=== PATIENT | female | born 1970 | race Caucasian/White ===

== ENCOUNTER 2017-05-19 08:39 | Observation (INO) | payer OTHER ==
[2017-05-19] MEDS ORDERED: IPRATROPIUM BROM 0.5MG/2.5ML ONE (09:03)
[2017-05-19] MEDS ORDERED: LEVALBUTEROL 1.25 MG/3 ML NEB ONE (09:03)
[2017-05-19 09:18] LABS: Absolute Lymphocytes (CBC) 2.3 K/uL (0.7-4.9); Absolute Monocytes 0.5 K/uL (0.1-1.3); Absolute Neutrophil 2.9 K/uL (1.8-8.0); Basophils % 0.4 % (0-1.3); Hematocrit 42.9 % (36.0-45.0); Lymphocytes % 39.9 % (15.3-44.8); MCH 30.7 pg (27.0-35.0); MCV 94.2 fL (80-100); MPV 7.8 fL (7.6-11.3); Monocytes % 8.2 % (3.3-12.3); RBC Red Blood Cell Count 4.55 M/uL (3.86-4.86)
[2017-05-19] MEDS ORDERED: MAGNESIUM SULFATE 1 gm IVPB 1 GM/100 ML BAG IV ONE (09:20)
[2017-05-19 09:26] LABS: Potassium 3.7 mEq/L (3.6-5.0)
[2017-05-19] MEDS ORDERED: ACETAMINOPHEN 500 MG TAB ONE (09:29)
--- NOTE | 2017-05-19 10:50 | ER ---
Nurse's Notes [facility] Name: Roxanne Duran Age: 46 yrs Sex: Female : 1970 Arrival Date: 05/19/2017 Time: 08:43 Bed 5 Private MD: Diagnosis: Chronic obstructive pulmonary disease with (acute) exacerbation;Pneumonia, unspecified organism Presentation: 05/19 08:35 Presenting complaint: EMS states: Pt c/o dyspnea x 3 days, worse this morning. jl7 Transition of care: patient was not received from another setting of care. Onset of symptoms was May 17, 2017. Care prior to arrival: Medication(s) given: 125 mg Solu-medrol IVP IV initiated. 20 GA, in the left antecubital area, Oxygen administered. via a non-rebreather mask. 08:35 Method Of Arrival: EMS: [facility] 08:35 Acuity: SHYLA 2 jl7 Triage Assessment: 08:40 General: Appears distressed, uncomfortable, Behavior is cooperative. Pain: Complains of jl7 pain in headache Pain does not radiate. Pain currently is 8 out of 10 on a pain scale. Quality of pain is described as throbbing, Pain began 1 hour ago. Is continuous. EENT: No signs and/or symptoms were reported regarding the EENT system. Neuro: Level of Consciousness is awake, alert, obeys commands, Oriented to person, place, time, situation. Cardiovascular: Heart tones S1 S2 present Patient's skin is warm and dry. Respiratory: Reports shortness of breath at rest cough that is non-productive, Airway is patent Respiratory effort is even, labored, Respiratory pattern is symmetrical, tachypnea Breath sounds are diminished bilaterally. Onset: The symptoms/episode began/occurred 3 days ago, the patient has moderate shortness of breath. Derm: Skin is pink, warm \T\ dry. [facility] DIRECTOR: 08:53 LMP N/A - Hysterectomy jl7 Historical: - Allergies: 08:53 No Known Allergies; jl7 - Home Meds: 08:53 ProAir HFA inhalation [Active]; jl7 - PMHx: 08:53 COPD; Anxiety; jl7 - PSHx: 08:53 Hysterectomy; jl7 - Immunization history:: Adult Immunizations unknown. - Social history:: Smoking status: Patient/guardian denies using tobacco, but has a distant history of tobacco abuse. Screenin:16 Abuse screen: Denies threats or abuse. Denies injuries from another. Nutritional jl7 screening: No deficits noted. Tuberculosis screening: No symptoms or risk factors identified. Fall Risk IV access (20 points). Total Benton Fall Scale indicates No Risk (0-24 pts). Assessment: 08:59 General: See triage assessment. jl7 10:18 Reassessment: Patient and/or family updated on plan of care and expected duration. Pain jl7 level reassessed. Patient is alert, oriented x 3, equal unlabored respirations, skin warm/dry/pink. Patient states symptoms have improved. Cardiovascular: Rhythm is regular. 11:15 Reassessment: No changes from previously documented assessment. Patient and/or family jl7 updated on plan of care and expected duration. Pain level reassessed. Patient is alert, oriented x 3, equal unlabored respirations, skin warm/dry/pink. Vital Signs: 08:38 BP 122 / 73; Pulse 112; Resp 26 S; Temp 98.2(O); Pulse Ox 94% on R/A; Weight 77.11 kg jl7 (R); Height 5 ft. 4 in. (162.56 cm) (R); Pain 8/10; 08:40 Pulse Ox 96% on 4 lpm NC; jl7 08:57 Pulse Ox 100% on Nebulizer Mask; jl7 09:44 BP 93 / 52; Pulse 108; Resp 26; Pulse Ox 97% on 4 lpm NC; jb1 10:18 BP 101 / 55; Pulse 95; Resp 18 S; Pulse Ox 96% on 4 lpm NC; jl7 11:00 BP 104 / 55; Pulse 95; Resp 18 S; Pulse Ox 94% on 4 lpm NC; jl7 11:42 BP 100 / 60; Pulse 95; Resp 18 S; Pulse Ox 95% on 4 lpm NC; jl7 08:38 Body Mass Index 29.18 (77.11 kg, 162.56 cm) jl7 ED Course: 08:38 Arm band placed on right wrist. jl7 08:43 Patient arrived in ED. jl7 08:44 Daniela Tinoco FNP-C [facility] kb 08:44 Rickie Enamorado MD is Attending Physician. kb 08:51 Triage completed. jl7 09:16 Patient has correct armband on for positive identification. Bed in low position. Call jl7 light in reach. Side rails up X 1. Pulse ox on. NIBP on. Warm blanket given. 09:16 Initial lab(s) drawn, by me, sent to lab. Maintain EMS IV. Dressing intact. Good blood jl7 return noted. Site clean \T\ dry. Gauge \T\ site: 20 L AC. 09:36 Darrin Kirkland RN is Primary Nurse. jl7 09:43 Chest Single View XRAY In Process Unspecified. EDMS 10:49 Dc Douglas MD is Hospitalizing Provider. kb 11:05 First set of blood cultures drawn by me. jl7 11:25 Second set of blood cultures drawn by me. Inserted saline lock: 22 gauge in right hand, jl7 using aseptic technique. Blood collected. 12:10 No provider procedures requiring assistance completed. Patient admitted, IV remains in jl7 place. Administered Medications: 08:45 Drug: Xopenex (3) 1.25 mg Route: Inhalation; jl7 09:14 Follow up: Response: No adverse reaction jl7 08:45 Drug: AtroVENT Aerosol 0.5 mg Route: Inhalation; jl7 09:15 Follow up: Response: No adverse reaction jl7 09:05 Drug: Magnesium Sulfate 1 grams Route: IVPB; Infused Over: 1 hrs; Site: left jl7 antecubital; 10:18 Follow up: Response: No adverse reaction; IV Status: Completed infusion jl7 09:14 Drug: Tylenol 1000 mg Route: PO; jl7 10:17 Follow up: Response: No adverse reaction; Pain is decreased jl7 11:25 Drug: Rocephin - (cefTRIAXone) 1 grams Route: IVPB; Infused Over: 2 mins; Site: right jl7 hand; 11:27 Follow up: Response: No adverse reaction; IV Status: Completed infusion jl7 11:50 Drug: Zithromax 500 mg Route: IVPB; Infused Over: 1 hrs; Site: right hand; jl7 12:10 Follow up: IV Status: Infusion continued upon admission jl7 Outcome: 10:49 Decision to Hospitalize by Provider. kb 12:10 Admitted to Med/surg accompanied by tech, via wheelchair, room 231, with oxygen, with jl7 chart, Report called to Jovana 12:10 Condition: stable 12:10 Discharge instructions given to patient, Instructed on the need for admit, Demonstrated understanding of instructions. 12:36 Patient left the ED. jl7 Signatures: Dispatcher [employer] Weston Bui Kristin, DIABETES EDUCATION COORDINATOR-C DIABETES EDUCATION COORDINATOR-Darrin Beltran, RN RN jl7
--- NOTE | 2017-05-19 10:50 | EDPHYS ---
Physician Documentation [facility] Name: Roxanne Duran Age: 46 yrs Sex: Female : 1970 Arrival Date: 05/19/2017 Time: 08:43 Bed 5 Private MD: ED Physician Rickie Enamorado HPI: 05/19 08:46 This 46 yrs old Female presents to ER via Unassigned with complaints of kb Breathing Difficulty. 08:46 The patient has shortness of breath at rest, and the patient has a history of COPD. kb Onset: The symptoms/episode began/occurred 3 day(s) ago, and became worse yesterday. Duration: The symptoms are continuous. The patient's shortness of breath is aggravated by exertion, talking, is alleviated by nothing. Associated signs and symptoms: Pertinent positives: non-productive cough, Pertinent negatives: chest pain, productive cough, diaphoresis, dizziness, fever, hemoptysis, loss of consciousness, nausea, numbness in extremities, visual changes, vomiting. Severity of symptoms: At their worst the symptoms were moderate in the emergency department the symptoms are unchanged. The patient has not experienced similar symptoms in the past. The patient has not recently seen a physician. Dyspnea for 3 days, worse starting yesterday. Has been doing nebs and inhaler at home without relief. Reports she is supposed to wear oxygen at night and PRN, but hasn't been because it has been making her nose too dry. Solumedrol 125mg IV given in route by EMS. Pt states she stopped smoking 3 weeks ago. Uses e-cigarette occasionally. . 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 - Social history:: Smoking status: Patient/guardian denies using tobacco, but has a distant history of tobacco abuse. ROS: 08:46 Constitutional: Negative for fever, chills, and weight loss, ENT: Negative for injury, kb pain, and discharge, Neck: Negative for injury, pain, and swelling, Cardiovascular: Negative for chest pain, palpitations, and edema, Abdomen/GI: Negative for abdominal pain, nausea, vomiting, diarrhea, and constipation, Back: Negative for injury and pain, : Negative for injury, bleeding, discharge, and swelling, MS/Extremity: Negative for injury and deformity, Skin: Negative for injury, rash, and discoloration, Neuro: Negative for headache, weakness, numbness, tingling, and seizure. 08:46 Respiratory: Positive for cough, with no reported sputum, dyspnea on exertion, shortness of breath, Negative for pleurisy, wheezing. Exam: 08:46 Constitutional: This is a well developed, well nourished patient who is awake, alert, kb and in no acute distress. Head/Face: Normocephalic, atraumatic. ENT: Nares patent. No nasal discharge, no septal abnormalities noted. Tympanic membranes are normal and external auditory canals are clear. Oropharynx with no redness, swelling, or masses, exudates, or evidence of obstruction, uvula midline. Mucous membranes moist. Neck: Trachea midline, no thyromegaly or masses palpated, and no cervical lymphadenopathy. Supple, full range of motion without nuchal rigidity, or vertebral point tenderness. No Meningismus. Chest/axilla: Normal chest wall appearance and motion. Nontender with no deformity. No lesions are appreciated. Cardiovascular: Regular rate and rhythm with a normal S1 and S2. No gallops, murmurs, or rubs. Normal PMI, no JVD. No pulse deficits. Abdomen/GI: Soft, non-tender, with normal bowel sounds. No distension or tympany. No guarding or rebound. No evidence of tenderness throughout. Back: No spinal tenderness. No costovertebral tenderness. Full range of motion. Skin: Warm, dry with normal turgor. Normal color with no rashes, no lesions, and no evidence of cellulitis. MS/ Extremity: Pulses equal, no cyanosis. Neurovascular intact. Full, normal range of motion. Neuro: Awake and alert, GCS 15, oriented to person, place, time, and situation. Cranial nerves II-XII grossly intact. Motor strength 5/5 in all extremities. Sensory grossly intact. Cerebellar exam normal. Normal gait. 08:46 Respiratory: moderate respiratory distress is noted, Respirations: labored breathing, that is moderate, Breath sounds: decreased breath sounds, that are moderate, are located in both bases. 10:37 Respiratory: mild respiratory distress is noted, Respirations: labored breathing, that kb is mild, Breath sounds: decreased breath sounds, that are mild, are located in both bases. Vital Signs: 08:38 BP 122 / 73; Pulse 112; Resp 26 S; Temp 98.2(O); Pulse Ox 94% on R/A; Weight 77.11 kg jl7 (R); Height 5 ft. 4 in. (162.56 cm) (R); Pain 8/10; 08:40 Pulse Ox 96% on 4 lpm NC; jl7 08:57 Pulse Ox 100% on Nebulizer Mask; jl7 09:44 BP 93 / 52; Pulse 108; Resp 26; Pulse Ox 97% on 4 lpm NC; jb1 10:18 BP 101 / 55; Pulse 95; Resp 18 S; Pulse Ox 96% on 4 lpm NC; jl7 11:00 BP 104 / 55; Pulse 95; Resp 18 S; Pulse Ox 94% on 4 lpm NC; jl7 11:42 BP 100 / 60; Pulse 95; Resp 18 S; Pulse Ox 95% on 4 lpm NC; jl7 08:38 Body Mass Index 29.18 (77.11 kg, 162.56 cm) jl7 MDM: 08:44 Patient medically screened. kb 08:46 Data reviewed: vital signs, nurses notes. Data interpreted: Pulse oximetry: on room air kb is 94 %. Interpretation: normal. 10:45 Counseling: I had a detailed discussion with the patient and/or guardian regarding: the kb historical points, exam findings, and any diagnostic results supporting the discharge/admit diagnosis, lab results, radiology results, the need for further work-up and treatment in the hospital. Physician consultation: Dc Douglas MD was contacted at 10:49, regarding admission, to the medical/surgical unit. patient's condition, and will see patient in ED, shortly. ED course: Pt reports she is doing better until she takes a deep breath or talks. Gets into coughing fits and becomes short of breath again. States she thinks she needs to stay here. . 05/19 08:45 Order name: CBC with Diff; Complete Time: 09:26 kb 05/19 08:45 Order name: Basic Metabolic Panel; Complete Time: 09:26 kb 05/19 08:45 Order name: Chest Single View XRAY; Complete Time: 10:57 kb 05/19 10:58 Order name: Blood Culture Adult (2) kb 05/19 08:45 Order name: IV Start; Complete Time: 09:18 kb Administered Medications: 08:45 Drug: Xopenex (3) 1.25 mg Route: Inhalation; jl7 09:14 Follow up: Response: No adverse reaction jl7 08:45 Drug: AtroVENT Aerosol 0.5 mg Route: Inhalation; jl7 09:15 Follow up: Response: No adverse reaction jl7 09:05 Drug: Magnesium Sulfate 1 grams Route: IVPB; Infused Over: 1 hrs; Site: left jl7 antecubital; 10:18 Follow up: Response: No adverse reaction; IV Status: Completed infusion jl7 09:14 Drug: Tylenol 1000 mg Route: PO; jl7 10:17 Follow up: Response: No adverse reaction; Pain is decreased jl7 11:25 Drug: Rocephin - (cefTRIAXone) 1 grams Route: IVPB; Infused Over: 2 mins; Site: right jl7 hand; 11:27 Follow up: Response: No adverse reaction; IV Status: Completed infusion jl7 11:50 Drug: Zithromax 500 mg Route: IVPB; Infused Over: 1 hrs; Site: right hand; jl7 12:10 Follow up: IV Status: Infusion continued upon admission jl7 Disposition: 13:44 Co-signature as Attending Physician, Rickie Enamorado MD I agree with the assessment and kdr plan of care. Disposition: 05/19/17 10:49 Hospitalization ordered by Dc Douglas for Observation. Preliminary diagnosis are Chronic obstructive pulmonary disease with (acute) exacerbation, Pneumonia, unspecified organism. - Bed requested for Telemetry/MedSurg (observation). - Status is Observation. jl7 - Condition is Stable. - Problem is an acute exacerbation. - Symptoms are unchanged. UTI on Admission? No Signatures: Dispatcher [employer] EDDaniela Reyes, Rickie Duff MD MD kdr Leal, Jahala, RN RN jl7 Nuvia Marshall RN RN df Corrections: (The following items were deleted from the chart) 08:56 08:46 Dyspnea for 3 days, worse starting yesterday. Has been doing nebs and inhaler at home without relief. Reports she is supposed to wear oxygen at night and PRN, but hasn't been because it has been making her nose too dry. Solumedrol 125mg IV given in route by EMS.
--- NOTE | 2017-05-19 10:55 | RAD REPORT ---
EXAM DESCRIPTION: [place] Single View05/19/2017 9:43 am CLINICAL HISTORY: Chest pain COMPARISON: March 2017 FINDINGS: A mild left basilar lung opacity is seen. The lungs are hyperaerated The remainder of the lungs appear clear of acute infiltrate. The heart is normal size IMPRESSION: Mild left basilar lung opacity may represent pneumonia
[2017-05-19] MEDS ORDERED: ACETAMINOPHEN 500 MG TAB PO PRN (11:03)
[2017-05-19] MEDS ORDERED: AZITHROMYCIN 500 MG/250 ML BAG IV SCH (11:15)
[2017-05-19] MEDS ORDERED: CEFTRIAXONE/SWI 1gm 1 GM/10 ML SYR ONE (11:24)
[2017-05-19] MEDS: Levofloxacin 750mg IV 750 MG/150 ML BAG IV SCH (13:49)
[2017-05-19] MEDS: NA CHLORIDE 0.9% 1,000 ML IV SCH ×2 (13:49→21:23)
[2017-05-19 14:13] VITALS: BMI 27.6
[2017-05-19] MEDS: ALBUTEROL 2.5 MG/3 ML NEB SOL NEB PRN ×2 (14:15→22:45)
[2017-05-19] MEDS: IPRATROPIUM BROM 0.5MG/2.5ML NEB PRN ×2 (14:15→22:45)
[2017-05-19] MEDS: ENOXAPARIN 40 MG/0.4 ML SQ SCH (14:56)
[2017-05-19] MEDS: BENZONATATE 100 MG CAP PO PRN (15:34)
[2017-05-19] MEDS: METHYLPREDNISOLONE 40 MG INJ IV SCH (17:55)
[2017-05-19] MEDS: BUDESONIDE IN SCH (20:25)
[2017-05-19] MEDS: [UNRECOGNIZED DRUG - OTHER] IN SCH (20:25)
[2017-05-19] MEDS: FORMOTEROL FUMARATE IN SCH (20:25)
[2017-05-19] MEDS ORDERED: LORazepam 2 MG/ML VIAL IV ONE (21:06)
--- NOTE | 2017-05-19 21:50 | HP ---
Date of Admission: 05/19/2017 Code Status: Full. Chief Complaint: Shortness of breath. History Of Present Illness: The patient is a 46-year-old female with past medical history of COPD, o n home oxygen at night, who was in her usual state of health until 3 days prior to admission when the patient had sudden onset of shortness of breath, cough, and congestion. The patient states that she has been using her nebulizer treatments more than usual. Does report some subjective fevers. No ch ills. Also reports some pain with deep breath on her left side. She denies any ill contacts. The p atient denies any chest pain. Also, the patient's symptoms are constant, moderate, progressively wor sening. No alleviating factors or aggravating factors. The patient called EMS and was brought into the ER. Upon arrival, the patient was about 94% on room air. She was placed on supplemental oxygen. Her workup revealed normal white blood cell count. Chest x-ray showed left basilar lung opacity re presenting pneumonia. The patient was given IV antibiotics, nebulizer treatment, magnesium, and refe rred for admission. When the patient was seen in the ER, she was awake, alert, oriented x3, in some mild distress. Past Medical History: COPD, oxygen dependent. Past Surgical History: Hysterectomy. Allergies: NO KNOWN DRUG ALLERGIES. Medications: Reviewed. Social History: The patient smokes 1-2 cigarettes per day. Former heavy smoker. No alcohol use or illicit drug use. The patient is independent in her activities of daily living. Family History: Mother had lung cancer. Review of Systems: 11-point system reviewed, negative except as per HPI. Physical Examination: Vital Signs: Heart rate 108, blood pressure 93/52, respirations 26, O2 saturation 100% on 4 L via na chayito cannula. General: Awake, alert, oriented x3 in some mild respiratory distress. Ill-appearing, older than sta lenard age female. HEENT: Normocephalic, atraumatic. PERRLA. EOMI. Poor dentition. Oropharynx is clear. Conjunctiv a anicteric. Neck: Supple. No JVD. Trachea midline. CV: S1, S2. Sinus tachycardia. Peripheral pulses are present bilaterally. No murmurs. Respiratory: Diminished breath sounds bilaterally. Mild wheezing. The patient is tachypneic and us ing accessory muscles. Gastrointestinal: Abdomen is soft, nontender, nondistended. Positive bowel sounds. No guarding or rigidity. No palpable masses. Extremities: No clubbing, cyanosis, or edema. No calf tenderness. Neurologic: Cranial nerves 2 through 12 intact grossly. No focal neurological deficit. Strength is 5/5 in bilateral upper and lower extremities. Sensation intact to light touch. Speech is normal. Laboratory Data: Sodium 140, potassium 3.7, chloride 107, CO2 of 24. BUN 13, creatinine 0.96, gluco se 105, calcium 8.3. WBC 5.7, H and H 14 and 42.9, platelets 151. Neutrophils 51.5%. Diagnostic Data: Chest x-ray, personally reviewed, shows mild left basilar lung opacity, may represe nt pneumonia. Assessment And Plan: A 46-year-old female with; 1.Acute chronic obstructive pulmonary disease exacerbation. We will continue with DuoNeb treatments , IV steroids, and supplemental oxygen as needed. Goal O2 is between 80 and 91%. 2.Left basilar pneumonia, community acquired. We will continue with IV antibiotics. Follow up with blood cultures and obtain sputum cultures. 3.Gastrointestinal and deep venous thrombosis prophylaxis with PPI and Lovenox. 4.Nicotine dependence with cigarette smoking, uncomplicated. Counseled. Plan: Admit the patient to [facility]. PANCHO Voice ID: [id number]
[2017-05-20] MEDS: METHYLPREDNISOLONE 40 MG INJ IV SCH ×2 (00:51→09:01)
[2017-05-20 05:16] LABS: Absolute Lymphocytes (CBC) 0.5 K/uL (0.7-4.9); Absolute Monocytes 0.1 K/uL (0.1-1.3); Absolute Neutrophil 2.3 K/uL (1.8-8.0); Basophils % 0.2 % (0-1.3); Hematocrit 38.2 % (36.0-45.0); Lymphocytes % 16.8 % (15.3-44.8); MCH 31.5 pg (27.0-35.0); MCV 93.6 fL (80-100); MPV 8.1 fL (7.6-11.3); Monocytes % 3.1 % (3.3-12.3); RBC Red Blood Cell Count 4.09 M/uL (3.86-4.86)
[2017-05-20 05:27] LABS: Potassium 4.6 mEq/L (3.6-5.0)
[2017-05-20] MEDS: [UNRECOGNIZED DRUG - OTHER] IN SCH (09:00)
[2017-05-20] MEDS: BUDESONIDE IN SCH (09:00)
[2017-05-20] MEDS: NA CHLORIDE 0.9% 1,000 ML IV SCH (09:00)
[2017-05-20] MEDS: FORMOTEROL FUMARATE IN SCH (09:00)
[2017-05-20] MEDS: ENOXAPARIN 40 MG/0.4 ML SQ SCH (09:01)
[2017-05-20] MEDS: ALBUTEROL 2.5 MG/3 ML NEB SOL NEB PRN (09:05)
[2017-05-20] MEDS: IPRATROPIUM BROM 0.5MG/2.5ML NEB PRN (09:05)
[2017-05-20] MEDS: BENZONATATE 100 MG CAP PO PRN (10:09)
[2017-05-20] MEDS: Levofloxacin 750mg IV 750 MG/150 ML BAG IV SCH (11:48)
[2017-05-20 12:41] VITALS: O2SAT 95
[2017-05-20 13:20] VITALS: BP 104/57; TEMP 99
--- NOTE | 2017-05-20 16:39 | DS ---
Date of Discharge: 05/20/2017 Admitting Diagnoses: 1.Acute chronic obstructive pulmonary disease exacerbation. 2.Left basilar pneumonia, community acquired. 3.Nicotine dependence with cigarette smoking, uncomplicated. Discharge Diagnoses: 1.Acute chronic obstructive pulmonary disease exacerbation with chronic respiratory failure, improve d. 2.Left basilar pneumonia, improved. 3.Nicotine dependence with cigarette smoking, counseled. Hospital Course: The patient is a 46-year-old female, who was admitted to the hospital for shortness of breath. The patient was found to have left basilar pneumonia and COPD exacerbation. The patient was started on IV steroids, nebulizer treatments, and IV antibiotics. Cultures were obtained, which were negative to date. The patient was continued on supplemental oxygen. She does take 2 L at home . Cultures remained negative. She is doing significantly better. She is able to ambulate without s ignificant dyspnea and was feeling back to her baseline. The patient still has some dry cough, which was treated with Tessalon Perles. The patient was then discharged home in stable condition. Activity: No strenuous activity. Diet: Heart healthy. Medications: As per medication reconciliation. Followup: Follow up with primary care physician in 2-3 days. Return to ER for worsening condition. Physical Examination: General: Awake, alert, oriented, no acute distress. CV: S1, S2. No murmurs. Respiratory: Moving air well bilaterally. Some minimal expiratory wheezes. Gastrointestinal: Abdomen is soft, nontender, nondistended. Positive bowel sounds. Extremities: No clubbing, cyanosis, or edema. Neuro: Nonfocal. SA/MODL Voice ID: [id number] Report ID: [id number]
== END 2017-05-20 11:58 | disposition home or self-care (01) ==
LOC: ER 08:39 → ERHOLD 10:50 → 2ND 11:56
PROVIDERS: ADMIT Family Medicine; ATTEND Family Medicine
DX: J18.9 Pneumonia, unspecified organism; J44.0 Chronic obstructive pulmonary disease with (acute) lower respiratory infection; F17.210 Nicotine dependence, cigarettes, uncomplicated; J44.1 Chronic obstructive pulmonary disease with (acute) exacerbation; J96.10 Chronic respiratory failure, unspecified whether with hypoxia or hypercapnia
CPT/HCPCS: 36415; 71045; 80048; 85025; 87040; 87070; 87205; 94640; 99285; G0378; J0456; J0696; J1650; J2920; J3475; J7030

== ENCOUNTER 2018-10-09 09:22 | Emergency (ER) | payer OTHER ==
--- NOTE | 2018-10-09 10:23 | EDPHYS ---
Physician Documentation [facility] Name: Roxanne Duran Age: 48 yrs Sex: Female : 1970 Arrival Date: 10/09/2018 Time: 09:28 Bed 7 Private MD: ED Physician Hipolito Ty HPI: 10/09 10:17 This 48 yrs old Female presents to ER via Ambulatory with complaints of faye Shoulder Pain. 10:17 The patient or guardian complains of decreased range of motion, pain. right shoulder. faye Context: The problem was sustained at home, at an unknown site. Context: resulted from repetitive motion, The patient experiences decreased range of motion, The patient reports no obvious deformity. Onset: The symptoms/episode began/occurred. Modifying factors: the symptoms are alleviated by remaining still, The symptoms are aggravated by movement, rotation of arm. Associated signs and symptoms: The patient has no apparent associated signs or symptoms. Severity of symptoms: At their worst the symptoms were mild, moderate, in the emergency department the symptoms are unchanged. 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 - Social history:: Smoking status: Patient uses tobacco products, smokes one-half pack cigarettes per day. - Ebola Screening: : No symptoms or risks identified at this time. - Family history:: not pertinent. ROS: 10:17 Constitutional: Negative for fever, chills, and weight loss, Eyes: Negative for injury, faye pain, redness, and discharge, ENT: Negative for injury, pain, and discharge, Neck: Negative for injury, pain, and swelling, Cardiovascular: Negative for chest pain, palpitations, and edema, Respiratory: Negative for shortness of breath, cough, wheezing, and pleuritic chest pain, Abdomen/GI: Negative for abdominal pain, nausea, vomiting, diarrhea, and constipation, Back: Negative for injury and pain, : Negative for injury, bleeding, discharge, and swelling, Skin: Negative for injury, rash, and discoloration, Neuro: Negative for headache, weakness, numbness, tingling, and seizure, Psych: Negative for depression, anxiety, suicide ideation, homicidal ideation, and hallucinations, Allergy/Immunology: Negative for hives, rash, and allergies, Endocrine: Negative for neck swelling, polydipsia, polyuria, polyphagia, and marked weight changes, Hematologic/Lymphatic: Negative for swollen nodes, abnormal bleeding, and unusual bruising. 10:17 MS/extremity: Positive for decreased range of motion, pain, of the anterior aspect of right shoulder and posterior aspect of right shoulder. Exam: 10:17 Constitutional: This is a well developed, well nourished patient who is awake, alert, faye and in no acute distress. Head/Face: Normocephalic, atraumatic. Eyes: Pupils equal round and reactive to light, extra-ocular motions intact. Lids and lashes normal. Conjunctiva and sclera are non-icteric and not injected. Cornea within normal limits. Periorbital areas with no swelling, redness, or edema. ENT: Nares patent. No nasal discharge, no septal abnormalities noted. Tympanic membranes are normal and external auditory canals are clear. Oropharynx with no redness, swelling, or masses, exudates, or evidence of obstruction, uvula midline. Mucous membranes moist. Neck: Trachea midline, no thyromegaly or masses palpated, and no cervical lymphadenopathy. Supple, full range of motion without nuchal rigidity, or vertebral point tenderness. No Meningismus. Chest/axilla: Normal chest wall appearance and motion. Nontender with no deformity. No lesions are appreciated. Cardiovascular: Regular rate and rhythm with a normal S1 and S2. No gallops, murmurs, or rubs. Normal PMI, no JVD. No pulse deficits. Respiratory: Lungs have equal breath sounds bilaterally, clear to auscultation and percussion. No rales, rhonchi or wheezes noted. No increased work of breathing, no retractions or nasal flaring. Abdomen/GI: Soft, non-tender, with normal bowel sounds. No distension or tympany. No guarding or rebound. No evidence of tenderness throughout. Skin: Warm, dry with normal turgor. Normal color with no rashes, no lesions, and no evidence of cellulitis. Neuro: Awake and alert, GCS 15, oriented to person, place, time, and situation. Cranial nerves II-XII grossly intact. Motor strength 5/5 in all extremities. Sensory grossly intact. Cerebellar exam normal. Normal gait. Psych: Awake, alert, with orientation to person, place and time. Behavior, mood, and affect are within normal limits. 10:17 Musculoskeletal/extremity: Extremities: noted in the anterior aspect of right shoulder and posterior aspect of right shoulder: decreased ROM, pain. Vital Signs: 09:37 BP 96 / 60; Pulse 68; Resp 16; Temp 97.7; Pulse Ox 99% ; Weight 77.11 kg; Height 5 ft. hb 4 in. (162.56 cm); Pain 9/10; 10:38 BP 110 / 62; Pulse 66; Resp 16; Temp 97.7; Pulse Ox 99% on R/A; Pain 9/10; sg 09:37 Body Mass Index 29.18 (77.11 kg, 162.56 cm) hb MDM: 09:34 Patient medically screened. [facility] 10:20 Data reviewed: vital signs, nurses notes, radiologic studies, plain films. [facility] 10/09 09:34 Order name: Shoulder Right (2 View) XRAY [facility] 10/09 10:16 Order name: Sling; Complete Time: 10:24 [facility] Administered Medications: 10:25 Drug: Motrin 600 mg Route: PO; sg Disposition: 10/09/18 10:21 Discharged to Home. Impression: Pain in right shoulder, Adhesive capsulitis of right shoulder. - Condition is Stable. - Discharge Instructions: Joint Pain, Musculoskeletal Pain, Shoulder Pain, Shoulder Pain, [id number]. - Prescriptions for Tylenol- Codeine #3 300-30 mg Oral Tablet - take 2 tablets by ORAL route every 6 hours As needed; 26 tablet. Motrin IB 200 mg Oral Tablet - take 3 tablet by ORAL route every 8 hours As needed as needed with food; 30 tablet. - Medication Reconciliation Form, Thank You Letter, Antibiotic Education, Prescription Opioid Use form. - Follow up: Private Physician; When: 2 - 3 days; Reason: Recheck today's complaints, Continuance of care, Re-evaluation by your physician. Follow up: Genaro Pacheco MD; When: 2 - 3 days; Reason: Recheck today's complaints, Re-evaluation by your physician. - Problem is new. - Symptoms have improved. Signatures: Dispatcher [employer] EDMS David Borges RN RN Hipolito Iverson MD MD cha Baxter, Heather, RN RN Corrections: (The following items were deleted from the chart) 10:41 10:21 10/09/2018 10:21 Discharged to Home. Impression: Pain in right shoulder; Adhesive sg capsulitis of right shoulder. Condition is Stable. Forms are Medication Reconciliation Form, Thank You Letter, Antibiotic Education, Prescription Opioid Use. Follow up: Private Physician; When: 2 - 3 days; Reason: Recheck today's complaints, Continuance of care, Re-evaluation by your physician. Follow up: Genaro Pacheco; When: 2 - 3 days; Reason: Recheck today's complaints, Re-evaluation by your physician. Problem is new. Symptoms have improved. faye
--- NOTE | 2018-10-09 10:23 | ER ---
Nurse's Notes [facility] Name: Roxanne Duran Age: 48 yrs Sex: Female : 1970 Arrival Date: 10/09/2018 Time: 09:28 Bed 7 Private MD: Diagnosis: Pain in right shoulder;Adhesive capsulitis of right shoulder Presentation: 10/09 09:34 Presenting complaint: Right shoulder pain x 3 weeks. Transition of care: patient was hb not received from another setting of care. Onset of symptoms was September 2018. Risk Assessment: Do you want to hurt yourself or someone else? Patient reports no desire to harm self or others. Initial Sepsis Screen: Does the patient meet any 2 criteria? No. Patient's initial sepsis screen is negative. Does the patient have a suspected source of infection? No. Patient's initial sepsis screen is negative. Care prior to arrival: Medication(s) given: Naproxen at 0630. 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 - Social history:: Smoking status: Patient uses tobacco products, smokes one-half pack cigarettes per day. - Ebola Screening: : No symptoms or risks identified at this time. - Family history:: not pertinent. Screenin:30 Abuse screen: Denies threats or abuse. Denies injuries from another. Nutritional sg screening: No deficits noted. Tuberculosis screening: No symptoms or risk factors identified. Never had TB. Fall Risk None identified. Assessment: 09:42 General: Appears in no apparent distress. well groomed, well developed, well nourished, sg Behavior is calm, cooperative, appropriate for age. Pain: Complains of pain in right shoulder Quality of pain is described as aching, tender. Neuro: Level of Consciousness is awake, alert, obeys commands, Oriented to person, place, time, Product Safety Coordinator are equal bilaterally Moves all extremities. Speech is normal, Facial symmetry appears normal. Cardiovascular: No deficits noted. Capillary refill is brisk in bilateral fingers Patient's skin is warm and dry. Chest pain is denied. Respiratory: Airway is patent Respiratory effort is even, unlabored, Respiratory pattern is regular, symmetrical. GI: Abdomen is flat, non-distended. : No signs and/or symptoms were reported regarding the genitourinary system. EENT: No signs and/or symptoms were reported regarding the EENT system. Derm: Skin is pink, warm \T\ dry. Musculoskeletal: Circulation, motion, and sensation intact. Range of motion: intact in all extremities, Reports pain in right shoulder. Vital Signs: 09:37 BP 96 / 60; Pulse 68; Resp 16; Temp 97.7; Pulse Ox 99% ; Weight 77.11 kg; Height 5 ft. hb 4 in. (162.56 cm); Pain 9/10; 10:38 BP 110 / 62; Pulse 66; Resp 16; Temp 97.7; Pulse Ox 99% on R/A; Pain 9/10; sg 09:37 Body Mass Index 29.18 (77.11 kg, 162.56 cm) hb ED Course: 09:28 Patient arrived in ED. cf2 09:33 Hipolito Ty MD is Attending Physician. faye 09:37 Triage completed. hb 09:37 Arm band placed on. hb 09:42 Patient has correct armband on for positive identification. Bed in low position. Call sg light in reach. Pulse ox on. NIBP on. 09:54 Shoulder Right (2 View) XRAY In Process Unspecified. EDMS 10:21 Genaro Pacheco MD is Referral Physician. faye 10:24 David Borges, STEVE is Primary Nurse. sg 10:25 Sling applied to right arm. sg 10:35 No provider procedures requiring assistance completed. Patient did not have IV access sg during this emergency room visit. Administered Medications: 10:25 Drug: Motrin 600 mg Route: PO; sg Outcome: 10:21 Discharge ordered by . faye 10:38 Discharged to home ambulatory, with family. sg 10:38 Condition: good 10:38 Discharge instructions given to patient, Instructed on discharge instructions, follow up and referral plans. no drinking with medication, no driving heavy equipment, medication usage, safety practices, Demonstrated understanding of instructions, follow-up care, medications, Prescriptions given X 2. 10:41 Patient left the ED. sg Signatures: Dispatcher [employer] David Mazariegos RN RN sg Anderson, Corey, MD MD cha Baxter, Heather, RN RN Yonatan Abrams
[2018-10-09] MEDS ORDERED: IBUPROFEN 200 MG TAB PO ONE (10:24)
--- NOTE | 2018-10-09 10:26 | RAD REPORT ---
EXAM DESCRIPTION: RAD - Shoulder Right 2 View - 10/09/2018 9:53 am CLINICAL HISTORY: PAIN COMPARISON: No comparisons FINDINGS: No fracture or dislocation seen.
[2018-10-09 11:27] VITALS: BP 96/60; TEMP 97.7; O2SAT 99
== END 2018-10-09 10:41 | disposition home or self-care (01) ==
LOC: ER 09:22
DX: M75.01 Adhesive capsulitis of right shoulder (principal); J44.9 Chronic obstructive pulmonary disease, unspecified; F41.9 Anxiety disorder, unspecified; F17.210 Nicotine dependence, cigarettes, uncomplicated
CPT/HCPCS: 99284

== ENCOUNTER 2019-10-09 20:52 | Inpatient (IN) | payer SELFPAY, OTHER ==
[2019-10-09] MEDS ORDERED: METHYLPREDNISOLONE 125 MG INJ ONE (21:39)
[2019-10-09] MEDS ORDERED: ALBUTEROL INHALER 60 PUFF/8 GM IH ONE (21:53)
[2019-10-09 22:09] LABS: Absolute Lymphocytes (CBC) 2.2 K/uL (0.7-4.9); Hematocrit 40.8 % (36.0-45.0); RBC Red Blood Cell Count 4.32 M/uL (3.86-4.86)
[2019-10-09 22:17] LABS: Protime INR 0.84
[2019-10-09 22:46] LABS: ALT/SGPT 13 U/L (12-78); AST/SGOT 12 U/L (15-37); Albumin 3.3 g/dL (3.4-5.0); Alkaline Phosphatase 92 U/L (45-117); BUN Blood Urea Nitrogen 13 mg/dL (7-18); Bicarbonate 29 mmol/L (21-32); Bilirubin Direct < 0.1 mg/dL (0-0.2); Bilirubin Total 0.3 mg/dL (0.2-1.0); CKMB Creatine Kinase MB < 1.0 ng/mL (0.3-3.6); Creatine Phosphokinase 61 U/L (26-192); Glucose Level 104 mg/dL (74-106); Lipase 98 U/L (73-393); Magnesium 1.9 mg/dL (1.8-2.4); NT PRO-BNP 114 pg/mL (<125); Potassium 3.7 mmol/L (3.5-5.1); Protein, Total 6.8 g/dL (6.4-8.2); Sodium Level 145 mmol/L (136-145); Troponin (Emerg Dept Use Only) < 0.02 ng/mL (0.0-0.045)
--- NOTE | 2019-10-10 00:41 | ER ---
Nurse's Notes [facility] Name: Roxanne Duran Age: 49 yrs Sex: Female : 1970 Arrival Date: 10/09/2019 Time: 20:53 Bed 14 Private MD: Diagnosis: Chest pain, unspecified;COPD Exacerbation;Hypoxia Presentation: 10/08 21:02 Chief complaint: Patient states: "I have COPD and for the last 3 days I have had jd3 worsening chest pressure and pain. it has gotten to the point today that my oxygen measurement on my machine will drop if I stand up or do anything and my chest is hurting.". Coronavirus screen: difficulty breathing, shortness of breath, possible contact with a positive person. Client presents with at least one sign or symptom that may indicate coronavirus-19. Standard/surgical mask placed on the client. Provider contacted for isolation considerations. Ebola Screen: Patient negative for fever greater than or equal to 101.5 degrees Fahrenheit, and additional compatible Ebola Virus Disease symptoms. Initial Sepsis Screen: Does the patient meet any 2 criteria? RR > 20 per min. No. Patient's initial sepsis screen is negative. Does the patient have a suspected source of infection? No. Patient's initial sepsis screen is negative. Risk Assessment: Do you want to hurt yourself or someone else? Patient reports no desire to harm self or others. Onset of symptoms was October 06, 2019. 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 - Social history:: Smoking status: Patient/guardian denies using tobacco, the patient reports quitting approximately 1 years ago. Screenin:30 Abuse screen: Denies threats or abuse. Denies injuries from another. Nutritional wh screening: No deficits noted. Tuberculosis screening: No symptoms or risk factors identified. 21:30 Fall Risk None identified. wh Assessment: 21:10 General: Appears uncomfortable, Behavior is calm, cooperative, appropriate for age. wh Pain: Complains of pain in chest Pain does not radiate. Pain began 2-3 days ago. Neuro: Level of Consciousness is awake, alert, obeys commands, Oriented to person, place, time, situation, Appropriate for age. Cardiovascular: Heart tones S1 S2 Rhythm is regular. Respiratory: Airway is patent Respiratory effort is labored, Respiratory pattern is tachypnea Breath sounds are diminished. GI: Abdomen is flat, non-distended. : No signs and/or symptoms were reported regarding the genitourinary system. EENT: No signs and/or symptoms were reported regarding the EENT system. Derm: Skin is intact, is healthy with good turgor, Skin is pink, warm \\T\\ dry. normal. Musculoskeletal: Circulation, motion, and sensation intact. 21:30 Reassessment: Pt O2 sats at 95% on RA, MD ordered RT for Pt to be placed on 2lnc sats wh at 100%. 22:25 Reassessment: No changes from previously documented assessment. Patient and/or family wh updated on plan of care and expected duration. Pain level reassessed. Patient is alert, oriented x 3, equal unlabored respirations, skin warm/dry/pink. 23:30 Reassessment: Patient and/or family updated on plan of care and expected duration. Pain wh level reassessed. Patient is alert, oriented x 3, equal unlabored respirations, skin warm/dry/pink. Provider explaining POC need for admit. 10/09 00:45 Reassessment: Patient and/or family updated on plan of care and expected duration. Pain wh level reassessed. Patient is alert, oriented x 3, equal unlabored respirations, skin warm/dry/pink. Pt updated on POC need for Admit. Vital Signs: 10/08 21:05 BP 106 / 57; Pulse 90; Resp 25 S; Temp 98.3(O); Pulse Ox 93% on R/A; Weight 80.74 kg jd3 (R); Height 5 ft. 4 in. (162.56 cm) (R); Pain 7/10; 22:30 BP 102 / 65; Pulse 80; Resp 22; Pulse Ox 100% 3 lpm ; wh 23:35 BP 101 / 64; Pulse 81; Resp 24 S; Pulse Ox 100% on 3 lpm NC; bb 10/09 00:30 BP 111 / 67; Pulse 80; Resp 18; Pulse Ox 100% on 3 lpm NC; 10/08 21:05 Body Mass Index 30.55 (80.74 kg, 162.56 cm) jd3 ED Course: 10/08 20:53 Patient arrived in ED. bp1 20:57 Benny Franco MD is Attending Physician. [facility] 21:00 Arun Garcia is Primary Nurse. 21:05 Triage completed. jd3 21:06 Arm band placed on. jd3 21:10 Patient maintains SpO2 saturation greater than 95% on room air. 21:15 Patient has correct armband on for positive identification. Placed in gown. Bed in low wh position. Call light in reach. Side rails up X 1. fashion adviser on. Pulse ox on. NIBP on. 21:15 Inserted saline lock: 20 gauge in right antecubital area, using aseptic technique. Blood collected. 22:30 Notified ED physician of a critical lab result(s). DDimer 667. 22:43 Chest Single View XRAY In Process Unspecified. EDOK 23:55 Chest For PE Angio CT In Process Unspecified. EDOK 10/09 00:39 Luiz Palacio MD is Hospitalizing Provider. [facility] 01:00 No provider procedures requiring assistance completed. Patient admitted, IV remains in place. Administered Medications: 10/08 22:02 Drug: SOLU-Medrol 125 mg Route: IVP; Site: right antecubital; 10/09 00:47 Follow up: Response: No adverse reaction 02:31 Not Given (Patient Refused): Albuterol HFA Inhaler 2 puffs Inhalation once Outcome: 00:40 Decision to Hospitalize by Provider. [facility] 01:00 Admitted to ER Hold. Please see [facility] for further documentation. 01:00 Condition: stable 01:00 Instructed on the need for admit. 14:42 Patient left the ED. jl7 Signatures: Dispatcher [employer] EDMS Lorenza Davison RN RN bb Darrin Kirkland RN RN jl7 Arun Garcia Silvestre Rodriguez RN RN jd3 PaniaLuz wilhelm Maurice, MD MD mh7 Corrections: (The following items were deleted from the chart) 10/08 21:11 21:02 Coronavirus screen: difficulty breathing, shortness of breath, Client presents jd3 with at least one sign or symptom that may indicate coronavirus-19. Standard/surgical mask placed on the client. Provider contacted for isolation considerations. jd3 10/09 02:31 10/08 23:30 Reassessment: Patient and/or family updated on plan of care and expected wh duration. Pain level reassessed. Patient is alert, oriented x 3, equal unlabored respirations, skin warm/dry/pink. wh
--- NOTE | 2019-10-10 00:41 | EDPHYS ---
Physician Documentation [facility] Name: Roxanne Duran Age: 49 yrs Sex: Female : 1970 Arrival Date: 10/09/2019 Time: 20:53 Bed 14 Private MD: ED Physician Benny Franco HPI: 10/08 21:44 This 49 yrs old Female presents to ER via Wheelchair with complaints of Chest mh7 Pain, Breathing Difficulty, Diarrhea. 21:45 The patient has shortness of breath with light activity. mh7 21:45 Onset: The symptoms/episode began/occurred 3 day(s) ago. Duration: The symptoms are mh7 intermittent, with no pattern. The patient's shortness of breath is aggravated by coughing, light activity, is alleviated by nothing. Associated signs and symptoms: Pertinent positives: chest pain, non-productive cough, Pertinent negatives: productive cough, diaphoresis, dizziness, fever, hemoptysis, loss of consciousness, nausea, numbness in extremities, visual changes, vomiting. Associated signs and symptoms: Pertinent positives: diarrhea. Severity of symptoms: At their worst the symptoms were moderate today, in the emergency department the symptoms are unchanged. The patient has experienced similar episodes in the past, multiple times. Patient states she has had exposure to relatives who were COVID 19 positive about 4-5 days ago. She has had progressive SOB for the past 3 days. She has also had chest pain and cough. She denies any fever, nausea, vomiting, abdominal pain. She has had diarrhea that started earlier today.. [employer]ER: 21:07 LMP N/A - Hysterectomy jd3 Historical: - Allergies: 21:07 No Known Allergies; jd3 - Home Meds: 21:07 ProAir HFA inhalation [Active]; Symbicort inhalation [Active]; Effexor Oral [Active]; jd3 - PMHx: 21:07 Anxiety; COPD; jd3 - PSHx: 21:07 Hysterectomy; jd3 - Immunization history:: Adult Immunizations up to date. - Social history:: Smoking status: Patient/guardian denies using tobacco, the patient reports quitting approximately 1 years ago. ROS: 21:45 Constitutional: Negative for fever, chills, and weight loss, Eyes: Negative for injury, mh7 pain, redness, and discharge, ENT: Negative for injury, pain, and discharge, Neck: Negative for injury, pain, and swelling, Back: Negative for injury and pain, : Negative for injury, bleeding, discharge, and swelling, MS/Extremity: Negative for injury and deformity, Skin: Negative for injury, rash, and discoloration, Neuro: Negative for headache, weakness, numbness, tingling, and seizure, Psych: Negative for depression, anxiety, suicide ideation, homicidal ideation, and hallucinations, Allergy/Immunology: Negative for hives, rash, and allergies, Endocrine: Negative for neck swelling, polydipsia, polyuria, polyphagia, and marked weight changes, Hematologic/Lymphatic: Negative for swollen nodes, abnormal bleeding, and unusual bruising. Exam: 21:45 Head/Face: Normocephalic, atraumatic. mh7 21:45 Eyes: Pupils equal round and reactive to light, extra-ocular motions intact. Lids and lashes normal. Conjunctiva and sclera are non-icteric and not injected. Cornea within normal limits. Periorbital areas with no swelling, redness, or edema. Neck: Trachea midline, no thyromegaly or masses palpated, and no cervical lymphadenopathy. Supple, full range of motion without nuchal rigidity, or vertebral point tenderness. No Meningismus. Chest/axilla: Normal chest wall appearance and motion. Nontender with no deformity. No lesions are appreciated. Cardiovascular: Regular rate and rhythm with a normal S1 and S2. No gallops, murmurs, or rubs. Normal PMI, no JVD. No pulse deficits. 21:45 Abdomen/GI: Soft, non-tender, with normal bowel sounds. No distension or tympany. No guarding or rebound. No evidence of tenderness throughout. Back: No spinal tenderness. No costovertebral tenderness. Full range of motion. Skin: Warm, dry with normal turgor. Normal color with no rashes, no lesions, and no evidence of cellulitis. MS/ Extremity: Pulses equal, no cyanosis. Neurovascular intact. Full, normal range of motion. Neuro: Awake and alert, GCS 15, oriented to person, place, time, and situation. Cranial nerves II-XII grossly intact. Motor strength 5/5 in all extremities. Sensory grossly intact. Cerebellar exam normal. Normal gait. Psych: Awake, alert, with orientation to person, place and time. Behavior, mood, and affect are within normal limits. 21:45 Constitutional: The patient appears in no acute distress, alert, awake, uncomfortable. 21:45 ECG was reviewed by the Attending Physician. 21:45 Respiratory: mild respiratory distress is noted, Respirations: prolonged exhalation, that is mild, tachypnea, that is mild, Breath sounds: rhonchi, that are mild, are scattered, Respiratory rate: 25 Vital Signs: 21:05 BP 106 / 57; Pulse 90; Resp 25 S; Temp 98.3(O); Pulse Ox 93% on R/A; Weight 80.74 kg jd3 (R); Height 5 ft. 4 in. (162.56 cm) (R); Pain 7/10; 22:30 BP 102 / 65; Pulse 80; Resp 22; Pulse Ox 100% 3 lpm ; wh 23:35 BP 101 / 64; Pulse 81; Resp 24 S; Pulse Ox 100% on 3 lpm NC; bb 10/09 00:30 BP 111 / 67; Pulse 80; Resp 18; Pulse Ox 100% on 3 lpm NC; wh 10/08 21:05 Body Mass Index 30.55 (80.74 kg, 162.56 cm) jd3 MDM: 10/08 21:23 Patient medically screened. [facility] 10/09 00:37 Differential diagnosis: Anemia Anxiety Reaction asthma, Bronchitis CHF exacerbation, [facility] Chronic Obstructive Pulmonary Disease Myocardial Infarction pneumonia, Pneumothorax pulmonary edema, Pulmonary Embolism Unstable Angina. Data reviewed: vital signs, nurses notes, lab test result(s), cardiac enzymes, CBC, electrolytes, urinalysis, EKG, radiologic studies, CT scan, plain films. Data interpreted: Pulse oximetry: on 3L(s) per nasal canula, is 98 %. Interpretation: acceptable, Plan: O2 by NC applied. Counseling: I had a detailed discussion with the patient and/or guardian regarding: the historical points, exam findings, and any diagnostic results supporting the discharge/admit diagnosis, lab results, radiology results, the need for further work-up and treatment in the hospital. Response to treatment: the patient's symptoms have mildly improved after treatment. 10/08 21:23 Order name: Blood Culture Adult (2) [facility] 10/08 21:23 Order name: BMP; Complete Time: 00:18 [facility] 10/08 21:23 Order name: CBC with Diff; Complete Time: 22:24 10/08 21:23 Order name: Ckmb; Complete Time: 00:18 10/08 21:23 Order name: CPK; Complete Time: 00:18 10/08 21:23 Order name: D-Dimer; Complete Time: 22:24 10/08 21:23 Order name: Hepatic Function; Complete Time: 00:18 10/08 21:23 Order name: Lipase; Complete Time: 00:18 10/08 21:23 Order name: Magnesium; Complete Time: 00:18 10/08 21:23 Order name: NT PRO-BNP; Complete Time: 00:18 10/08 21:23 Order name: PT-INR; Complete Time: 22:24 10/08 21:23 Order name: Ptt, Activated; Complete Time: 22:24 10/08 21:23 Order name: Troponin (emerg Dept Use Only); Complete Time: 00:18 10/08 21:24 Order name: Influenza Screen (a \T\ B); Complete Time: 00:18 10/08 21:23 Order name: EKG; Complete Time: 21:24 10/08 21:23 Order name: Cardiac monitoring; Complete Time: 22:03 [facility] 10/08 21:23 Order name: EKG - Nurse/Tech; Complete Time: 22:03 [facility] 10/08 21:23 Order name: IV Saline Lock; Complete Time: 22:03 [facility] 10/08 21:23 Order name: Labs collected and sent; Complete Time: 22:03 [facility] 10/08 21:23 Order name: O2 Per Protocol; Complete Time: 22:03 [facility] 10/08 21:23 Order name: O2 Sat Monitoring; Complete Time: 22:03 [facility] 10/08 21:23 Order name: Chest Single View XRAY [facility] 10/08 21:27 Order name: Urine Dipstick-Ancillary (obtain specimen); Complete Time: 00:47 [facility] 10/08 21:27 Order name: Urine Test (obtain specimen); Complete Time: 00:47 [facility] 10/08 21:34 Order name: COVID-19 10/08 22:53 Order name: Chest For PE Angio CT 10/09 00:52 Order name: Urine Dipstick--Ancillary (enter results) tt3 10/09 06:14 Order name: SARS-COV-2 RT PCR EDMS EC/21 21:45 Rate is 82 beats/min. Rhythm is regular, Normal Sinus Rhythm. QRS [place] is Normal. [place] mh7 interval is normal. QRS interval is normal. QT interval is normal. No Q waves. T waves are Normal. No ST changes noted. Clinical impression: Normal ECG. Administered Medications: 22: Drug: SOLU-Medrol 125 mg Route: IVP; Site: right antecubital; 10/09 00:47 Follow up: Response: No adverse reaction 02:31 Not Given (Patient Refused): Albuterol HFA Inhaler 2 puffs Inhalation once Disposition: 10/10/19 00:40 Hospitalization ordered by Luiz Palacio for Observation. Preliminary diagnosis are Chest pain, unspecified, COPD Exacerbation, Hypoxia. - Bed requested for Telemetry/MedSurg (observation). - Status is Observation. jl7 - Condition is Stable. - Problem is an acute exacerbation. - Symptoms have improved. Signatures: Dispatcher [employer] EDMS Shelby Arriaga RN RN Darrin Kirkland RN RN jl7 Thompson, Moriah ut Arun Garcia Silvestre Rodriguez RN RN jd3 Holmes, Maurice, MD MD mh7 Corrections: (The following items were deleted from the chart) 10/08 21:44 21:39 Misc. Order ordered. [facility] 10/09 01:03 00:40 Hospitalization Ordered by Luiz Palacio MD for Observation. Preliminary cg diagnosis is Chest pain, unspecified; COPD Exacerbation; Hypoxia. Bed requested for Telemetry/MedSurg (observation). Status is Observation. Condition is Stable. Problem is an acute exacerbation. Symptoms have improved. 7 13:31 01:03 10/10/2019 00:40 Hospitalization Ordered by Luiz Palacio MD for Observation. ut Preliminary diagnosis is Chest pain, unspecified; COPD Exacerbation; Hypoxia. Bed [facility] for [facility] ER HOLD. Status is Observation. Condition is Stable. Problem is an acute exacerbation. Symptoms have improved. 14:42 13:31 10/10/2019 00:40 Hospitalization Ordered by Luiz Palacio MD for Observation. jl7 Preliminary diagnosis is Chest pain, unspecified; COPD Exacerbation; Hypoxia. Bed requested for Telemetry/MedSurg (observation). Status is Observation. Condition is Stable. Problem is an acute exacerbation. Symptoms have improved. mt
[2019-10-10 00:53] LABS: Urine Blood TRACE (NEG); Urine Glucose NEGATIVE (NEG); Urine Protein NEGATIVE (NEG)
--- NOTE | 2019-10-10 01:34 | P.HP ---
Certification for Inpatient Patient admitted to: Observation With expected LOS: <2 Midnights Patient will require the following post-hospital care: None Practitioner: I am a practitioner with admitting privileges, knowledge of patient current condition, hospital course, and medical plan of care. Services: Services provided to patient in accordance with Admission requirements found in Title 42 Section 412.3 of the Code of Federal Regulations <Edwin Mata - Last Filed: 10/10/19 01:29> Patient History Date of Service: 10/10/19 Primary Care Provider: Timur Doherty Reason for admission: COPD exacerbation History of Present Illness: 49-year-old female with history of COPD and anxiety presents emergency department for worsening shortness of breath over the course of the last 2 days. Patient reports that she was a gathering approximately 1 week ago with multiple family members who tested positive for Alfonso virus. Patient denies any fevers or other symptoms just reports worsening shortness of breath and cough. Patient takes trilogy inhaler and has home oxygen set up. She has been on prednisone 20 mg p.o. b.i.d. for the last 1.5 weeks and is not getting better. ED provider wishes to admit patient for further evaluation and management. When I saw the patient in the emergency department she is awake, alert, oriented x4. Patient is on nasal cannula at 3 L and tolerating this well. Patient be admitted for further evaluation and management. - Past Medical/Surgical History Diabetic: No -: COPD -: ANXIETY -: HYSTERECTOMY Psychosocial/ Personal History: Patient lives at home with her children is currently unemployed - Family History Family History: Reviewed- Non-Contributory - Family History Mother Notes: OXYGEN DEPENDENT, SMOKER Father -: Lung disease, GI disease, Kidney disease Notes: SMOKER - Social History Smoking Status: Former smoker Alcohol use: No CD- Drugs: No Caffeine use: Yes Place of Residence: Home <Edwin Mata - Last Filed: 10/10/19 01:29> Date of Service: 10/10/19 <Pedro Palacio - Last Filed: 10/10/19 15:28> Allergies No Known Drug Allergies Allergy (Verified 10/10/19 03:09) Unknown No Known Allergies Allergy (Uncoded 10/10/19 03:09) Unknown Home Medications: Albuterol Neb [Proventil 0.083% Neb Soln] 2.5 mg IH BID 05/19/17 Albuterol Sulfate [Proair Hfa] 2 puff IH PRN 05/19/17 Buspirone HCl [Buspar] 10 mg PO BID 10/10/19 Venlafaxine HCl 75 mg PO BEDTIME 10/10/19 predniSONE [Prednisone*] 20 mg PO BID 10/10/19 Review of Systems 10-point ROS is otherwise unremarkable Respiratory: Cough, Shortness of Breath <Edwin Mata - Last Filed: 10/10/19 01:29> Physical Examination - Physical Exam General: Alert, In no apparent distress, Oriented x3 HEENT: Atraumatic, Normocephalic Neck: Supple Respiratory: Diminished, Expiratory wheezes Cardiovascular: Normal pulses, Regular rate/rhythm, Normal S1 S2 Capillary refill: <2 Seconds Gastrointestinal: Normal bowel sounds, Soft and benign Musculoskeletal: No contractures, No erythema, No tenderness Integumentary: No tenderness/swelling, No erythema, No warmth Neurological: Normal speech, Normal strength at 5/5 x4 extr, Normal tone, Sensation intact - Studies Laboratory Data (last 24 hrs) 10/09/19 21:00: PT 10.0, INR 0.84, APTT 33.5 10/09/19 21:00: WBC 6.5, Hgb 13.8, Hct 40.8, Plt Count 209 10/09/19 21:00: Sodium 145, Potassium 3.7, BUN 13, Creatinine 1.07, Glucose 104, Magnesium 1.9, Total Bilirubin 0.3, AST 12 L, ALT 13, Alkaline Phosphatase 92, Lipase 98 Microbiology Data (last 24 hrs): 10/09/19 21:50 Nasopharnyx Influenza Type A Antigen Screen - Final 10/09/19 21:50 Nasopharnyx Influenza Type B Antigen Screen - Final <Edwin Mata - Last Filed: 10/10/19 01:29> - Studies Laboratory Data (last 24 hrs) 10/09/19 21:00: PT 10.0, INR 0.84, APTT 33.5 10/09/19 21:00: WBC 6.5, Hgb 13.8, Hct 40.8, Plt Count 209 10/09/19 21:00: Sodium 145, Potassium 3.7, BUN 13, Creatinine 1.07, Glucose 104, Magnesium 1.9, Total Bilirubin 0.3, AST 12 L, ALT 13, Alkaline Phosphatase 92, Lipase 98 Microbiology Data (last 24 hrs): 10/09/19 21:50 Nasopharnyx Influenza Type A Antigen Screen - Final 10/09/19 21:50 Nasopharnyx Influenza Type B Antigen Screen - Final <Pedro Palacio - Last Filed: 10/10/19 15:28> Assessment and Plan - Plan Assessment Acute on chronic respiratory failure secondary to COPD exacerbation-on home oxygen Plan Acute on chronic respiratory failure secondary to COPD exacerbation-on home oxygen: Pulmonology consult in place. Continue with IV steroid medications and oxygen therapy. Continue with albuterol and Dulera inhalers. Patient curr ently on trilogy inhaler and has home oxygen. Patient was tested for COVID and is currently awaiting results. Anticipate clinical improvement in the next 12- 24 hr at which time patient can be discharged. - Advance Directives Does patient have a Living Will: No Does patient have a Durable POA for Healthcare: No - Code Status/Comfort Care Code Status Assessed: Yes Time Spent Managing Pts Care (In Minutes): 55 <Edwin Mata - Last Filed: 10/10/19 01:29> Physician Review: Patient Assessed, Agree with Above Assessment and Plan <Pedro Palacio - Last Filed: 10/10/19 15:28>
[2019-10-10] MEDS ORDERED: ACETAMINOPHEN 500 MG TAB PO PRN (01:59)
[2019-10-10] MEDS ORDERED: ONDANSETRON 4 MG/2 ML VIAL IV PRN (01:59)
[2019-10-10] MEDS ORDERED: ALBUTEROL INHALER 60 PUFF/8 GM IH PRN (01:59)
[2019-10-10 02:52] VITALS: BMI 29.2
[2019-10-10] MEDS ORDERED: METHYLPREDNISOLONE 40 MG INJ ONE (08:39)
[2019-10-10] MEDS ORDERED: ENOXAPARIN 40 MG/0.4 ML SQ ONE (08:40)
[2019-10-10] MEDS: ENOXAPARIN 40 MG/0.4 ML SQ SCH (09:00)
[2019-10-10] MEDS ORDERED: DULERA 100/5 (MOMETASONE/FORMOTEROL) INHALER IH SCH (09:00)
[2019-10-10] MEDS: METHYLPREDNISOLONE 40 MG INJ IV SCH ×2 (09:00→17:00)
--- NOTE | 2019-10-10 10:58 | P.CNS ---
Date of Consult: 10/10/19 Primary Care Provider: Timur Doherty Chief Complaint: COPD exacerbation History of Present Illness: Patient is 49 years of age former smoker admitted with progressive dyspnea she has oxygen at home uses a trilogy inhaler he also has a nebulizers and recently prescribed prednisone has some tightness in her chest denies any fever or chills there is no evidence of jauregui virus infection on CT scan Allergies No Known Drug Allergies Allergy (Verified 10/10/19 03:09) Unknown No Known Allergies Allergy (Uncoded 10/10/19 03:09) Unknown Home Medications: Albuterol Neb [Proventil 0.083% Neb Soln] 2.5 mg IH BID 05/19/17 Albuterol Sulfate [Proair Hfa] 2 puff IH PRN 05/19/17 Buspirone HCl [Buspar] 10 mg PO BID 10/10/19 Venlafaxine HCl 75 mg PO BEDTIME 10/10/19 predniSONE [Prednisone*] 20 mg PO BID 10/10/19 - Past Medical/Surgical History Diabetic: No -: COPD -: ANXIETY -: HYSTERECTOMY Psychosocial/ Personal History: Patient lives at home with her children is currently unemployed - Family History Mother Notes: OXYGEN DEPENDENT, SMOKER Father Medical History: Lung disease, GI disease, Kidney disease Notes: SMOKER - Social History Smoking Status: Current every day smoker Alcohol use: No CD- Drugs: No Caffeine use: Yes Place of Residence: Home Review of Systems 10-point ROS is otherwise unremarkable General: Weakness Respiratory: Shortness of Breath Physical Examination Temp Pulse Resp BP Pulse Ox 98.2 F 79 22 H 97/61 99 10/10/19 04:00 10/10/19 04:00 10/10/19 04:00 10/10/19 04:00 10/10/19 04:00 General: Alert, In no apparent distress, Oriented x3 Respiratory: Expiratory wheezes Cardiovascular: Regular rate/rhythm Laboratory Data (last 24 hrs) 10/09/19 21:00: PT 10.0, INR 0.84, APTT 33.5 10/09/19 21:00: WBC 6.5, Hgb 13.8, Hct 40.8, Plt Count 209 10/09/19 21:00: Sodium 145, Potassium 3.7, BUN 13, Creatinine 1.07, Glucose 104, Magnesium 1.9, Total Bilirubin 0.3, AST 12 L, ALT 13, Alkaline Phosphatase 92, Lipase 98 - Problems (1) COPD exacerbation Onset Date: 05/20/17 Current Visit: No Status: Acute Plan: Patient is 49 years of age admitted with COPD exacerbation labs reviewed hemodynamically stable oxygenation satisfactory he does not show any evidence off jauregui virus infection continue with steroids schedule bronchodilators possible discharge home tomorrow she has prednisone trilogy in nebulizers
--- NOTE | 2019-10-10 12:02 | P.PN ---
Date of Service: 10/10/19 Patient seen and examined. She is feeling better now. She is tolerating oxygen by nasal cannula. She reports dyspnea with exertion and anxiety. Lung auscultation: clear. No rhonchi or wheezes or crackles. Looks like patient has responded to treatment. Continue bronchodilators and steroids. Pulmonology input appreciated. Possible discharge tomorrow.
[2019-10-10] MEDS: ARFORMOTEROL TARTRATE 15 MCG/2 ML VIAL.NEB NEB SCH ×2 (13:20→20:25)
[2019-10-10] MEDS: IPRATROPIUM BROM 0.5MG/2.5ML IH SCH ×2 (13:20→20:25)
--- NOTE | 2019-10-10 13:21 | RAD REPORT ---
EXAM DESCRIPTION: RAD - Chest Single View - 10/09/2019 10:43 pm CLINICAL HISTORY: 49 years Female SOB COMPARISON: None. FINDINGS: The cardiomediastinal silhouette appears unremarkable. The right lung is clear. There is i ncreased opacity at the left lung base which could be from overlying soft tissues but changes from pn eumonia are not excluded. No definite pleural effusions. No pneumothorax. IMPRESSION: There is opacity at the left lung base which could be from overlying soft tissues but ch anges from pneumonia are not excluded. PA and lateral chest x-ray could be obtained to better evaluat e. Electronically signed by: Micheal Deleon MD 10/09/2019 10:57 PM CDT Due to temporary technical issues with the PACS/Fluency reporting system, reports are being signed by the in house radiologist without review as a courtesy to ensure prompt reporting. The interpreting r adiologist is fully responsible for the content of the report.
--- NOTE | 2019-10-10 13:26 | RAD REPORT ---
EXAM DESCRIPTION: CT - Chest For Pe Angio - 10/10/2019 5:09 am CLINICAL HISTORY: COPD COMPARISON: None Available. TECHNIQUE: CTA of the chest obtained following the uncomplicated intravenous administration of iodin ated contrast. 3-D/MIP reformatted images of the chest available for evaluation. FINDINGS: Chest: Pulmonary arteries: Contrast bolus is adequate.No filling defects identified in the pulmonary arterie s to suggest pulmonary embolus. Thyroid: No abnormalities of the visualized thyroid. Great Vessels: Great vessels have normal anatomic configuration. Thoracic Aorta: No abnormalities of the thoracic aorta identified. Heart: No cardiomegaly, significant pericardial effusion, or coronary artery atherosclerosis Lymph Nodes: No enlarged mediastinal lymph nodes identified. Esophagus: No abnormalities of the esophagus identified. Other: No additional findings. Lungs: No airspace opacities identified. Centrilobular emphysematous change. Pleura: No pleural effusion or pneumothorax. Trachea/Airways: No abnormalities of the visualized trachea or airways. Bones: No destructive osseous lesions. Upper Abdomen: Limited images of the upper abdomen demonstrate no definite abnormalities of visualize d portions of the liver, gallbladder, pancreas, spleen, adrenal glands, or kidneys. IMPRESSION: 1. No pulmonary embolus. 2. Centrilobular emphysematous change. This exam was performed according to our departmental dose-optimization program, which includes autom ated exposure control, adjustment of the mA and/or kV according to patient size and/or use of iterati ve reconstruction technique. Electronically signed by: William Collins 10/10/2019 12:05 AM CDT Due to temporary technical issues with the PACS/Fluency reporting system, reports are being signed by the in house radiologist without review as a courtesy to ensure prompt reporting. The interpreting r adiologist is fully responsible for the content of the report.
[2019-10-10] MEDS ORDERED: IPRATROPIUM BROM 0.5MG/2.5ML ONE (13:31)
[2019-10-10] MEDS ORDERED: PNEUMOCOCCAL VACCINE 0.5 ML IMVAC ONE (14:00)
[2019-10-11] MEDS: METHYLPREDNISOLONE 40 MG INJ IV SCH ×2 (00:41→08:31)
[2019-10-11] MEDS: IPRATROPIUM BROM 0.5MG/2.5ML IH SCH ×2 (01:10→07:35)
[2019-10-11 06:28] LABS: Absolute Lymphocytes (CBC) 1.1 K/uL (0.7-4.9); Basophils % 0.2 % (0-1.3); Hematocrit 39.9 % (36.0-45.0); Lymphocytes % 12.3 % (15.3-44.8); MPV 8.4 fL (7.6-11.3); RBC Red Blood Cell Count 4.25 M/uL (3.86-4.86)
[2019-10-11 06:33] LABS: Potassium 5.1 mmol/L (3.5-5.1)
[2019-10-11 07:17] LABS: Blood Morphology Comment NOT SEEN (NOT SEEN); Platelet Estimate ADEQ; Urine White Blood Cell Casts OK
[2019-10-11] MEDS: ARFORMOTEROL TARTRATE 15 MCG/2 ML VIAL.NEB NEB SCH (07:35)
[2019-10-11] MEDS: ENOXAPARIN 40 MG/0.4 ML SQ SCH (08:31)
[2019-10-11 08:41] VITALS: TEMP 97.7
[2019-10-11 12:08] VITALS: BP 96/55
[2019-10-11 12:18] VITALS: O2SAT 95
--- NOTE | 2019-10-11 12:31 | P.DS ---
Admission Date: 10/10/19 Discharge Date: 10/11/19 Primary Care Provider: Timur Doherty Disposition: ROUTINE DISCHARGE Discharge Condition: FAIR Reason for Admission: COPD exacerbation - Problems (1) COPD exacerbation Onset Date: 05/20/17 Current Visit: No Status: Acute (2) Chronic respiratory failure with hypoxia Current Visit: Yes Status: Acute Brief History of Present Illness: 49-year-old woman with a history of COPD and chronic respiratory failure on home oxygen at night presented emergency department with a complaint of progressive shortness of breath of 2 days duration. Patient also reported exposure to people with COVID 19 infection. CTA thorax in the ED showed no infiltrate but reported centrilobular emphysema. She was tachypneic but saturating on room air. She was placed on oxygen by nasal cannula, given IV Solu-Medrol and admitted for further management. Hospital Course: Patient admitted to the medical floor and treated for COPD exacerbation with IV steroids and scheduled bronchodilators. She was maintained on oxygen by nasal cannula. She tested negative for COVID 19. Her respiratory condition improved within 24 hrs of hospitalization, more rapid improvement than expected. She was seen and evaluated by pulmonary-Dr. Barrera. Cultures came back with no growth. Patient is deemed clinically stable for discharge. She is discharged with a short course oral prednisone therapy. Vital Signs/Physical Exam: Temp Pulse Resp BP Pulse Ox 97.7 F 78 14 96/55 L 95 10/11/19 12:00 10/11/19 12:00 10/11/19 12:00 10/11/19 12:00 10/11/19 12:00 General: Alert, In no apparent distress HEENT: Mucous membr. moist/pink Neck: Supple Respiratory: Clear to auscultation bilaterally, Normal air movement Cardiovascular: No edema, Regular rate/rhythm, Normal S1 S2 Gastrointestinal: Normal bowel sounds, Soft and benign, No tenderness Musculoskeletal: No swelling, No erythema Integumentary: No rashes Neurological: Other (Nonfocal.) Laboratory Data at Discharge: WBC 9.4 K/uL (4.3-10.9) D 10/11/19 05:35 Hgb 13.5 g/dL (12.0-15.0) 10/11/19 05:35 Hct 39.9 % (36.0-45.0) 10/11/19 05:35 Plt Count 181 K/uL (152-406) 10/11/19 05:35 PT 10.0 SECONDS (9.5-12.5) 10/09/19 21:00 INR 0.84 10/09/19 21:00 APTT 33.5 SECONDS (24.3-36.9) 10/09/19 21:00 Sodium 143 mmol/L (136-145) 10/11/19 05:35 Potassium 5.1 mmol/L (3.5-5.1) 10/11/19 05:35 BUN 16 mg/dL (7-18) 10/11/19 05:35 Creatinine 0.92 mg/dL (0.55-1.3) 10/11/19 05:35 Glucose 159 mg/dL (74-106) H 10/11/19 05:35 Magnesium 1.9 mg/dL (1.8-2.4) 10/09/19 21:00 Total Bilirubin 0.3 mg/dL (0.2-1.0) 10/09/19 21:00 AST 12 U/L (15-37) L 10/09/19 21:00 ALT 13 U/L (12-78) 10/09/19 21:00 Alkaline Phosphatase 92 U/L (45-117) 10/09/19 21:00 Lipase 98 U/L (73-393) 10/09/19 21:00 Home Medications: Albuterol Neb [Proventil 0.083% Neb Soln] 2.5 mg IH BID 05/19/17 Albuterol Sulfate [Proair Hfa] 2 puff IH PRN 05/19/17 Buspirone HCl [Buspar] 10 mg PO BID 10/10/19 Venlafaxine HCl 75 mg PO BEDTIME 10/10/19 Fluticasone/Salmeterol [Airduo Respiclick 113-14 Mcg] 1 each IH BID #1 aer.pow.ba 10/11/19 Ipratropium Neb [Atrovent*] 0.5 mg IH Q6H #120 amp 10/11/19 predniSONE [Prednisone*] 20 mg PO BID #8 tab 10/11/19 New Medications: Fluticasone/Salmeterol [Airduo Respiclick 113-14 Mcg] 1 each IH BID #1 aer.pow.ba Ipratropium Neb [Atrovent*] 0.5 mg IH Q6H #120 amp predniSONE [Prednisone*] 20 mg PO BID #8 tab Diet: AHA Activity: Ad flaca Time spent managing pt's care (in minutes): 33
== END 2019-10-11 13:44 | disposition home or self-care (01) | DRG 190 ==
LOC: ER 20:52 → ERHOLD 10-10 01:24 → OBSVTOIN 10-10 07:21 → 2ND 10-10 13:44
PROVIDERS: ADMIT Internal Medicine; ATTEND Internal Medicine
DX: J44.1 Chronic obstructive pulmonary disease with (acute) exacerbation (principal); J96.21 Acute and chronic respiratory failure with hypoxia; F17.200 Nicotine dependence, unspecified, uncomplicated; Z90.710 Acquired absence of both cervix and uterus; Z79.52 Long term (current) use of systemic steroids; Z79.899 Other long term (current) drug therapy; Z99.81 Dependence on supplemental oxygen; Z79.51 Long term (current) use of inhaled steroids; Z20.828 Contact with and (suspected) exposure to other viral communicable diseases
CPT/HCPCS: 36415; 71045; 71275; 80048; 80076; 81003; 82550; 82553; 83690; 83735; 83880; 84484; 85025; 85379; 85610; 85730; 87040; 87804; 93005; 94640; 96374; 99285; G0378; J1650; J2920; J2930; J7605; J7606; Q9967; U0003

== ENCOUNTER 2019-12-08 18:25 | Emergency (ER) | payer OTHER ==
--- OUTSIDE RECORDS SUMMARY | 2019-12-08 18:36 | XMS REPORT | Continuity of Care Document ---
:1970 Author Organization [facility] t Address [address] [place] [address] [address] [place] [address] Care Team Providers Name Role Phone Unavailable Unavailable Unavailable Payers Payer Name Policy Type Policy Number Effective Date Expiration Date S ource Problems This patient has no known problems. Allergies, Adverse Reactions, Alerts This patient has no known allergies or adverse reactions. Medications This patient has no known medications. Procedures This patient has no known procedures. Results Test Description Test Time Test Comments Results Result Comments Source - XR CHEST 2 V 2019-12-08 11:11:[facility] 1970 Sex: F FAX: Jn Barton MD [phone] [place]: [address]: REG Name: AMADA RIVERA [facility] [place] : 1970 Age/S: 49/F [address] [place] [address] Blvd Unit #: [id number] Loc: [place] [address] Phys: Jn Barrios MD Acct: [id number] Dis Date: Status: REG CLI PHONE #: [phone] Exam Date: 12/08/2019 1111 FAX #: [phone] Reason: R06.02, SHORTNESS OF BREATH. EXAMS: CPT CODE: [id number] XR CHEST 2 V 05855 CLINICAL HISTORY: R06.02, SHORTNESS OF BREATH. COMPARISON: NONE PA and lateral films of the chest demonstrate that heart size is normal. Lung kaur are clear. No evidence of pneumonia or congestive failure is seen. Regional skeletal structures demonstrate no acute abnormality. IMPRESSION: No evidence of pneumonia or congestive failure is seen. at 1111 Reported and signed by: Kurt Lu M.D. CC: Jn Barrios MD Technologist: RT Gomez(R) Trnscrd Date/Time/By: 12/08/2019 (1111) : By: Juan Schmid Print D/T: S: 12/08/2019 (1418) PAGE 1 Signed Report
[2019-12-08] MEDS ORDERED: ALBUTEROL INHALER 60 PUFF/8 GM IH ONE (19:58)
[2019-12-08] MEDS ORDERED: METHYLPREDNISOLONE 125 MG INJ ONE (19:58)
[2019-12-08 20:00] LABS: Urine Blood 1+ (NEG); Urine Glucose NEGATIVE (NEG); Urine Protein NEGATIVE (NEG); Urine Specific Gravity 1.015 (1.005-1.030); Urine pH 5.5 (5.0-7.0)
--- NOTE | 2019-12-08 20:07 | RAD REPORT ---
EXAM DESCRIPTION: RADChest Single View12/08/2019 7:36 pm CLINICAL HISTORY: Chest pain COMPARISON: 12/09/2019 FINDINGS: Lungs are hyperaerated. Mild atelectasis left lung base The remainder of the lungs appear clear of acute infiltrate. The heart is normal size
[2019-12-08 20:09] LABS: Absolute Lymphocytes (CBC) 1.4 K/uL (0.7-4.9); Basophils % 0.9 % (0-1.3); Hematocrit 38.4 % (36.0-45.0); MPV 7.8 fL (7.6-11.3); RBC Red Blood Cell Count 4.09 M/uL (3.86-4.86)
[2019-12-08 20:30] LABS: ALT/SGPT 12 U/L (12-78); AST/SGOT 15 U/L (15-37); Albumin 3.3 g/dL (3.4-5.0); Alkaline Phosphatase 96 U/L (45-117); BUN Blood Urea Nitrogen 8 mg/dL (7-18); Bicarbonate 30 mmol/L (21-32); Bilirubin Direct 0.1 mg/dL (0-0.2); Bilirubin Total 0.6 mg/dL (0.2-1.0); Glucose Level 95 mg/dL (74-106); Lipase 80 U/L (73-393); NT PRO-BNP 131 pg/mL (<125); Protein, Total 6.8 g/dL (6.4-8.2); Sodium Level 142 mmol/L (136-145); Troponin (Emerg Dept Use Only) < 0.02 ng/mL (0.0-0.045)
--- NOTE | 2019-12-08 22:27 | EDPHYS ---
Physician Documentation [facility] Name: Roxanne Duran Age: 49 yrs Sex: Female : 1970 Arrival Date: 12/08/2019 Time: 18:27 Bed 5 Private MD: ED Physician Gaetano Barnes HPI: 12/07 21:36 This 49 yrs old Female presents to ER via Ambulatory with complaints of rn Shortness Of Breath, Chest Tightness, Cough, Nausea/Vomiting. 21:36 The patient has shortness of breath at rest, with light activity. rn 21:36 Onset: The symptoms/episode began/occurred 3 day(s) ago. Duration: The symptoms are rn intermittent. The patient's shortness of breath is aggravated by coughing, is alleviated by nothing. Associated signs and symptoms: Pertinent positives: chest pain, productive cough, nausea, vomiting, Pertinent negatives: hemoptysis, loss of consciousness. Severity of symptoms: At their worst the symptoms were moderate in the emergency department the symptoms are unchanged. The patient has experienced similar episodes in the past. Reports cough, sob, chest pain when coughing, nausea/vomiting/diarrhea, muscle aches, for 3-4 days. No fever. NO known sick contacts. Similar to last COPD exacerbation. . Historical: - Allergies: 18:41 No Known Allergies; ll1 - PMHx: 18:41 Anxiety; COPD; ll1 - PSHx: 18:41 Hysterectomy; ll1 - Immunization history:: Flu vaccine is not up to date. - Social history:: Smoking status: Patient/guardian denies using tobacco, Stopped _ months ago 18. - Family history:: not pertinent. - Hospitalizations: : The patient was recently seen at [facility]. ROS: 21:36 Constitutional: Negative for fever, chills, and weight loss, Eyes: Negative for injury, rn pain, redness, and discharge, Cardiovascular: Negative for palpitations, and edema, Respiratory: Positive for shortness of breath, cough, wheezing, and pleuritic chest pain, Abdomen/GI: Negative for abdominal pain, constipation, MS/Extremity: Negative for injury and deformity, Skin: Negative for injury, rash, and discoloration, Neuro: Negative for headache, numbness, tingling, and seizure. Exam: : ECG was reviewed by the Attending Physician. rn 21:36 Constitutional: This is a well developed, well nourished patient who is awake, alert, rn and in no acute distress. Head/Face: Normocephalic, atraumatic. ENT: NO stridor Neck: Trachea midline, no thyromegaly or masses palpated, and no cervical lymphadenopathy. Supple, full range of motion without nuchal rigidity, or vertebral point tenderness. No Meningismus. Cardiovascular: Regular rate and rhythm. No pulse deficits. Respiratory: Mild tachypnea, no retractions, wheezing throught Abdomen/GI: soft, non-tender Skin: Warm, dry, no cyanosis MS/ Extremity: Pulses equal, no cyanosis. Neurovascular intact. Full, normal range of motion. Equal circumference. Neuro: Awake and alert, GCS 15, oriented to person, place, time, and situation. Cranial nerves II-XII grossly intact. Motor strength 5/5 in all extremities. Sensory grossly intact. Vital Signs: 18:39 BP 97 / 62; Pulse 82; Resp 20; Temp 98.1; Pulse Ox 97% ; Weight 83.91 kg; Height 5 ft. ll1 4 in. (162.56 cm); Pain 8/10; 20:15 BP 98 / 57; Pulse 78; Resp 19; Pulse Ox 95% on R/A; jb4 21:00 BP 101 / 54; Pulse 80; Resp 16; Pulse Ox 96% on R/A; jb4 22:15 BP 101 / 61; Pulse 80; Resp 22; Pulse Ox 91% on R/A; jb4 18:39 Body Mass Index 31.75 (83.91 kg, 162.56 cm) ll1 MDM: 19:03 Patient medically screened. rn 22:25 Differential diagnosis: Bronchitis Chronic Obstructive Pulmonary Disease Myocardial rn Infarction pneumonia, Pneumothorax pulmonary edema, COVID. 22:26 Data reviewed: vital signs, nurses notes, lab test result(s), EKG, radiologic studies, rn CT scan, plain films, and as a result, I will discharge patient. Counseling: I had a detailed discussion with the patient and/or guardian regarding: the historical points, exam findings, and any diagnostic results supporting the discharge/admit diagnosis, lab results, radiology results, the need for outpatient follow up, to return to the emergency department if symptoms worsen or persist or if there are any questions or concerns that arise at home. Response to treatment: the patient's symptoms have markedly improved after treatment, and as a result, I will discharge patient. Special discussion: I discussed with the patient/guardian in detail that at this point there is no indication for admission to the hospital. It is understood, however, that if the symptoms persist or worsen the patient needs to return immediately for re-evaluation. ED course: Pt improved, neg COVID, neg CT chest for PE, will dc home as COPD exacerbation with return precautions, steroids, abx. . 22:38 ED course: Pt sleeping comfortably, feels ok to go home, given all results. . rn 12/07 19:09 Order name: Blood Culture Adult (2) rn 12/07 19:09 Order name: BMP; Complete Time: 21: 12/07 19:09 Order name: CBC with Diff; Complete Time: 20:16 12/07 19:09 Order name: D-Dimer; Complete Time: 21: 12/07 19:09 Order name: Hepatic Function; Complete Time: 21: 12/07 19:09 Order name: Lipase; Complete Time: 21: 12/07 19:09 Order name: NT PRO-BNP; Complete Time: 21: 12/07 19:09 Order name: Troponin (emerg Dept Use Only); Complete Time: 21: 12/07 19:09 Order name: Flu 12/07 19:09 Order name: Strep 12/07 19:52 Order name: Urine Dipstick--Ancillary (enter results); Complete Time: 20:16 tt3 12/07 21:46 Order name: SARS-COV-2 RT PCR; Complete Time: 22:25 EDOK 12/07 22:33 Order name: Throat Culture EDOK 12/07 19:09 Order name: XRAY CXR (1 view); Complete Time: 20:16 12/07 19:09 Order name: EKG; Complete Time: 19: 12/07 19:09 Order name: Cardiac monitoring; Complete Time: 19:33 12/07 19:09 Order name: EKG - Nurse/Tech; Complete Time: 19:33 12/07 19:09 Order name: IV Saline Lock; Complete Time: 20:01 rn 12/07 19:09 Order name: Labs collected and sent; Complete Time: 20: rn 12/07 19:09 Order name: O2 Per Protocol; Complete Time: : rn 12/07 19:09 Order name: O2 Sat Monitoring; Complete Time: : rn 12/07 20:16 Order name: CT Chest For PE Angio rn EC: Rate is 83 beats/min. Rhythm is regular. QRS [place] is Normal. TN interval is normal. QRS rn interval is normal. QT interval is prolonged at 491 msec. No Q waves. T waves are Normal. No ST changes noted. Clinical impression: NSR w/ Non-specific ST/T Changes. Interpreted by me. Reviewed by me. Administered Medications: 19:45 Drug: Albuterol HFA Inhaler 2 puffs Route: Inhalation; jb4 20:15 Follow up: Response: No adverse reaction jb4 19:50 Drug: SOLU-Medrol 125 mg Route: IVP; Site: right antecubital; jb4 20:20 Follow up: Response: No adverse reaction jb4 20:00 Not Given (Other Intervention Used): Albuterol 2.5 mg Inhalation once jb4 22:30 Drug: Zithromax 500 mg Route: PO; jb4 22:36 Follow up: Response: No adverse reaction; Medication administered at discharge. jb4 Disposition: 12/08/19 22:27 Discharged to Home. Impression: Chronic obstructive pulmonary disease with (acute) exacerbation. - Condition is Stable. - Discharge Instructions: Chronic Obstructive Pulmonary Disease Exacerbation. - Prescriptions for Prednisone 20 mg Oral Tablet - take 3 tablet by ORAL route once daily for 5 days; 15 tablet. Zithromax Z- Kvng 250 mg Oral Tablet - take 1 tablet by ORAL route as directed for 5 days Day 1 - take two (2) tablets one time. Day 2, 3, 4 , 5 take one (1) tablet once daily.; 6 tablet. Albuterol Sulfate 90 mcg/actuation - inhale 1-2 puff by INHALATION route every 4-6 hours; 1 Inhaler. - Medication Reconciliation Form, Thank You Letter, Antibiotic Education, Prescription Opioid Use form. - Follow up: Private Physician; When: As needed; Reason: Recheck today's complaints, Re-evaluation by your physician. - Problem is an acute exacerbation. - Symptoms have improved. Signatures: Dispatcher [employer] EDMS Gaetano Barnes MD MD rn Bryson, James, RN RN jb4 Sudha Sams RN RN ll1 Corrections: (The following items were deleted from the chart) 20:47 19:10 CORONAVIRUS+MRBRADLY ordered. EDOK EDMS 22:45 22:27 12/08/2019 22:27 Discharged to Home. Impression: Chronic obstructive pulmonary jb4 disease with (acute) exacerbation. Condition is Stable. Forms are Medication Reconciliation Form, Thank You Letter, Antibiotic Education, Prescription Opioid Use. Follow up: Private Physician; When: As needed; Reason: Recheck today's complaints, Re-evaluation by your physician. Problem is an acute exacerbation. Symptoms have improved. rn
--- NOTE | 2019-12-08 22:27 | ER ---
Nurse's Notes [facility] Name: Roxanne Duran Age: 49 yrs Sex: Female : 1970 Arrival Date: 12/08/2019 Time: 18:27 Bed 5 Private MD: Diagnosis: Chronic obstructive pulmonary disease with (acute) exacerbation Presentation: 12/07 18:39 Chief complaint: Patient states: SOB, chest tightness, N/V for 3 days. Reports O2 sats ll1 in the 80's at home with exertion. Wears O2 at home. Coronavirus screen: Client denies travel out of the [place] in the last 14 days. cough unrelated to allergies, difficulty breathing, shortness of breath, sore throat, Client presents with at least one sign or symptom that may indicate coronavirus-19. Standard/surgical mask placed on the client. Ebola Screen: Patient denies travel to an Ebola-affected area in the 21 days before illness onset. Initial Sepsis Screen: Does the patient meet any 2 criteria? No. Patient's initial sepsis screen is negative. Does the patient have a suspected source of infection? Yes: Productive cough/pneumonia. Risk Assessment: Do you want to hurt yourself or someone else? Patient reports no desire to harm self or others. Onset of symptoms was December 05, 2019. 18:39 Method Of Arrival: Ambulatory ll1 18:39 Acuity: SHYLA 3 ll1 Historical: - Allergies: 18:41 No Known Allergies; ll1 - PMHx: 18:41 Anxiety; COPD; ll1 - PSHx: 18:41 Hysterectomy; ll1 - Immunization history:: Flu vaccine is not up to date. - Social history:: Smoking status: Patient/guardian denies using tobacco, Stopped _ months ago 18. - Family history:: not pertinent. - Hospitalizations: : The patient was recently seen at [facility]. Screenin:05 Abuse screen: Denies threats or abuse. Nutritional screening: No deficits noted. jb4 Tuberculosis screening: No symptoms or risk factors identified. Fall Risk None identified. Assessment: 19:05 General: Appears in no apparent distress. comfortable, Behavior is calm, cooperative, jb4 appropriate for age. Pain: Complains of pain in chest Pain does not radiate. Pain currently is 8 out of 10 on a pain scale. Quality of pain is described as sharp. Neuro: Level of Consciousness is awake, alert, obeys commands, Oriented to person, place, time, situation. Cardiovascular: Patient's skin is warm and dry. Respiratory: Airway is patent Respiratory effort is even, unlabored, Respiratory pattern is regular, symmetrical. GI: No signs and/or symptoms were reported involving the gastrointestinal system. : No signs and/or symptoms were reported regarding the genitourinary system. EENT: No signs and/or symptoms were reported regarding the EENT system. Derm: Skin is intact, Skin is pink, warm \T\ dry. Musculoskeletal: Circulation, motion, and sensation intact. Range of motion: intact in all extremities. 20:30 Reassessment: Patient appears in no apparent distress at this time. Patient and/or jb4 family updated on plan of care and expected duration. Pain level reassessed. Patient is alert, oriented x 3, equal unlabored respirations, skin warm/dry/pink. 21:30 Reassessment: Patient appears in no apparent distress at this time. Patient and/or jb4 family updated on plan of care and expected duration. Pain level reassessed. Patient is alert, oriented x 3, equal unlabored respirations, skin warm/dry/pink. 22:41 Reassessment: Patient appears in no apparent distress at this time. Patient and/or jb4 family updated on plan of care and expected duration. Pain level reassessed. Patient is alert, oriented x 3, equal unlabored respirations, skin warm/dry/pink. Vital Signs: 18:39 BP 97 / 62; Pulse 82; Resp 20; Temp 98.1; Pulse Ox 97% ; Weight 83.91 kg; Height 5 ft. ll1 4 in. (162.56 cm); Pain 8/10; 20:15 BP 98 / 57; Pulse 78; Resp 19; Pulse Ox 95% on R/A; jb4 21:00 BP 101 / 54; Pulse 80; Resp 16; Pulse Ox 96% on R/A; jb4 22:15 BP 101 / 61; Pulse 80; Resp 22; Pulse Ox 91% on R/A; jb4 18:39 Body Mass Index 31.75 (83.91 kg, 162.56 cm) ll1 ED Course: 18:27 Patient arrived in ED. ag5 18:41 Triage completed. ll1 18:42 Arm band placed on Patient placed in an exam room, on a stretcher. ll1 19:03 Gaetano Barnes MD is Attending Physician. rn 19:05 Patient has correct armband on for positive identification. Bed in low position. Call jb4 light in reach. Side rails up X 1. groundwater monitoring technician on. Pulse ox on. NIBP on. 19:33 XRAY CXR (1 view) In Process Unspecified. EDMS 19:39 Daniel Melendez, RN is Primary Nurse. jb4 19:50 Inserted saline lock: 18 gauge in right antecubital area, using aseptic technique. jb4 Blood collected. 19:50 Initial lab(s) drawn, by md, sent to lab. First set of blood cultures drawn by me. jb4 20:05 Second set of blood cultures drawn by md, Flu and/or RSV swab sent to lab. Strep swab jb4 sent to lab. 21:28 CT Chest For PE Angio In Process Unspecified. EDMS 22:42 No provider procedures requiring assistance completed. Patient did not have IV access jb4 during this emergency room visit. Administered Medications: 19:45 Drug: Albuterol HFA Inhaler 2 puffs Route: Inhalation; jb4 20:15 Follow up: Response: No adverse reaction jb4 19:50 Drug: SOLU-Medrol 125 mg Route: IVP; Site: right antecubital; jb4 20:20 Follow up: Response: No adverse reaction jb4 20:00 Not Given (Other Intervention Used): Albuterol 2.5 mg Inhalation once jb4 22:30 Drug: Zithromax 500 mg Route: PO; jb4 22:36 Follow up: Response: No adverse reaction; Medication administered at discharge. jb4 Outcome: 22:27 Discharge ordered by . rn 22:44 Discharged to home ambulatory. jb4 22:44 Condition: stable 22:44 Discharge instructions given to patient, Instructed on discharge instructions, follow up and referral plans. medication usage, Demonstrated understanding of instructions, follow-up care, medications, Prescriptions given X 3. 22:45 Patient left the ED. jb4 Signatures: Dispatcher [employer] EDWY Gaetano Barnes MD MD rn Bryson, James, RN RN jb4 Ariel Appiah ag5 Sudha Sams RN RN ll1
[2019-12-08] MEDS ORDERED: AZITHROMYCIN 250 MG TAB ONE (22:43)
[2019-12-08 23:12] VITALS: TEMP 98.1
[2019-12-08 23:17] VITALS: BP 101/61; O2SAT 91
--- NOTE | 2019-12-09 11:04 | RAD REPORT ---
EXAM DESCRIPTION: CT - Chest For Pe Angio - 12/09/2019 6:53 am CLINICAL HISTORY: The patient is 49 years old and is Female; DYSPNEA TECHNIQUE: Axial computed tomographic angiography images of the chest with intravenous contrast. S agittal and coronal reformatted images were created and reviewed. This CT exam was performed using one or more of the following dose reduction techniques: automated exposure control, adjustment of t he mA and/or kV according to patient size, and/or use of iterative reconstruction technique. MIP reconstructed images were created and reviewed. COMPARISON: No relevant prior studies available. FINDINGS: PULMONARY ARTERIES: There are no obvious filling defects identified within the pulmonary arteries to suggest pulmonary embolism. AORTA: No acute findings. No thoracic aortic aneurysm. LUNGS: The lungs are hyperinflated. Mild bilateral centrilobular emphysematous change is noted s pecifically within the upper lung zones. There is no lobar consolidation. PLEURAL SPACE: Unremarkable. No significant effusion. No pneumothorax. HEART: Unremarkable. No cardiomegaly. No significant pericardial effusion. No evidence of RV dysfunction. BONES/JOINTS: No acute fracture. No dislocation. SOFT TISSUES: Unremarkable. LYMPH NODES: Unremarkable. No enlarged lymph nodes. IMPRESSION: No evidence of pulmonary embolism. Electronically signed by: Sunitha Sterling MD 12/08/2019 9:44 PM CDT Due to temporary technical issues with the PACS/Fluency reporting system, reports are being signed by the in house radiologist without review as a courtesy to ensure prompt reporting. The interpreting r adiologist is fully responsible for the content of the report.
--- NOTE | 2019-12-09 11:28 | EKG ---
Test Date: 2019-12-08 Test Time: 19:41:52 Computer Console Operator: BIRGIT MEASUREMENT RESULTS: Intervals: Rate: 83 WY: 142 QRSD: 76 QT: 418 QTc: 491 [place]: P: 84 WY: 142 QRS: 80 T: 74 INTERPRETIVE STATEMENTS: Normal sinus rhythm Prolonged QT Abnormal ECG Compared to ECG 10/09/2019 21:12:42 Prolonged QT interval now present Electronically Signed On 12-09-19 11:27:06 CDT by Anthony Hyde
== END 2019-12-08 22:45 | disposition home or self-care (01) ==
LOC: ER 18:25
DX: J44.1 Chronic obstructive pulmonary disease with (acute) exacerbation (principal); Z20.828 Contact with and (suspected) exposure to other viral communicable diseases
CPT/HCPCS: 93005; 87040 ×2; 87070; 85025; 80048; 36415; 85379; 80076; 87081; 81003; 84484; 83690; 83880; 87804 ×2; 71275; 71045; 96374; 99285; U0003; Q9967; J2930

== ENCOUNTER 2019-12-12 02:07 | Inpatient (IN) | payer OTHER ==
--- OUTSIDE RECORDS SUMMARY | 2019-12-12 02:09 | XMS REPORT | Continuity of Care Document ---
:1970 Author Organization [facility] t Address [address] [place] [address] Care Team Providers Name Role Phone Unavailable [...] - XR CHEST 2 V 2019-12-08 11:11:[address] [facility] : 1970 Sex: F FAX: Jn Barton MD [phone] [place]: [address]: REG Name: AMADA RIVERA [facility] [place] : 1970 Age/S: 49/F [address] [place] [address] Unit #: [id number] Loc: [place] [address] Phys: Jn Barrios MD Acct: [id number] Dis Date: Status: REG CLI PHONE #: [phone] Exam Date: 12/08/2019 1111 FAX #: [phone] Reason: R06.02, SHORTNESS OF BREATH. EXAMS: CPT CODE: [id number] XR CHEST 2 V 65033 CLINICAL HISTORY: R06.02, SHORTNESS OF BREATH. COMPARISON: [...]
--- NOTE | 2019-12-12 02:48 | ER ---
Nurse's Notes [facility] Name: Roxanne Durna Age: 49 yrs Sex: Female : 1970 Arrival Date: 12/12/2019 Time: 02:14 Bed 6 Private MD: Diagnosis: Chronic obstructive pulmonary disease with (acute) exacerbation;Dyspnea-failed outpt treatment;Hypokalemia Presentation: 12/11 02:14 Chief complaint: EMS states: she was here 3 days ago for Difficulty breathing. was mg2 discharged with z pack, abx and inhaler. today she feels worse, her breathing is more difficult. given breathing treatment and she improved. Coronavirus screen: Client denies travel out of the [place] in the last 14 days. The client reports previous COVID testing was negative. Date of collection: November 2019. Ebola Screen: No symptoms or risks identified at this time. Initial Sepsis Screen: Does the patient meet any 2 criteria? No. Patient's initial sepsis screen is negative. Does the patient have a suspected source of infection? No. Patient's initial sepsis screen is negative. Risk Assessment: Do you want to hurt yourself or someone else? Patient reports no desire to harm self or others. Onset of symptoms was December 12, 2019. 02:14 Method Of Arrival: EMS: [facility] [place] 02:14 Acuity: SHYLA 2 mg2 Triage Assessment: 03:20 Pain: Denies pain. 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 - Social history:: Smoking status: Patient/guardian denies using tobacco, Patient/guardian denies using alcohol, street drugs, IV drugs. - Family history:: not pertinent. Screenin:47 Abuse screen: Denies threats or abuse. Denies injuries from another. Nutritional mg2 screening: No deficits noted. Tuberculosis screening: No symptoms or risk factors identified. Fall Risk IV access (20 points). Assessment: 02:30 General: Appears distressed, Behavior is cooperative. Neuro: Level of Consciousness is mg2 awake, alert, obeys commands, Oriented to person, place, time, situation. Cardiovascular: Capillary refill < 3 seconds Patient's skin is warm and dry. Respiratory: Airway is patent Respiratory effort is labored, Respiratory pattern is regular, Breath sounds with wheezes in left upper lobe and left lower lobe. GI: No signs and/or symptoms were reported involving the gastrointestinal system. : No signs and/or symptoms were reported regarding the genitourinary system. EENT: No signs and/or symptoms were reported regarding the EENT system. Derm: Skin is intact, is healthy with good turgor, Skin is pink, warm \T\ dry. normal. Musculoskeletal: Circulation, motion, and sensation intact. Capillary refill < 3 seconds. 02:58 Reassessment: hospitalist at bedside with the patient. patient agreed to be admitted. mg2 03:49 Reassessment: patient admitted already to the floor. ER provider added more medications mg2 to be given to the patient. floor nurse informed. Vital Signs: 02:14 BP 99 / 57; Resp 29; Temp 98.2; Weight 85.28 kg; Height 5 ft. 4 in. (162.56 cm); mg2 02:46 Pulse 80; Pulse Ox 100% on 2 lpm NC; mg2 03:07 BP 97 / 56; Pulse 85; Resp 22; Pulse Ox 100% on Nebulizer Mask; mg2 02:14 Body Mass Index 32.27 (85.28 kg, 162.56 cm) mg2 ED Course: 02:14 Patient arrived in ED. mg2 02:16 Hipolito Ty MD is Attending Physician. faye 02:16 Triage completed. mg2 02:16 Arm band placed on. mg2 02:23 Jeramy Young, STEVE is Primary Nurse. mg2 02:30 Inserted saline lock: 20 gauge in right antecubital area, using aseptic technique. mg2 Blood collected. 02:47 Prince Velazquez MD is Hospitalizing Provider. faey 02:47 No provider procedures requiring assistance completed. mg2 02:48 Patient has correct armband on for positive identification. cardiac monitor on. Pulse mg2 ox on. NIBP on. 02:55 XRAY Chest (1 view) In Process Unspecified. EDMS 03:19 Patient admitted, IV remains in place. mg2 03:36 Primary Nurse role handed off by Jeramy Young, STEVE mg2 Administered Medications: 02:46 Drug: NS 0.9% 500 ml Route: IV; Rate: bolus; Site: right antecubital; mg2 03:30 Follow up: Response: No adverse reaction; IV Status: Completed infusion; IV Intake: mg2 500ml 02:46 Drug: SOLU-Medrol 125 mg Route: IVP; Site: right antecubital; mg2 03:31 Follow up: Response: No adverse reaction mg2 02:46 Drug: Xopenex 3.75 mg Route: Inhalation; mg2 03:31 Follow up: Response: No adverse reaction mg2 02:46 Drug: AtroVENT Aerosol 0.5 mg Route: Inhalation; mg2 03:31 Follow up: Response: No adverse reaction mg2 03:06 Drug: levofloxacin 500 mg Volume: 100 ml; Route: IVPB; Infused Over: 60 mins; Site: mg2 right antecubital; 03:31 Follow up: IV Status: Infusion continued upon admission mg2 03:30 Drug: NS 0.9% 1000 ml Route: IV; Rate: 125 ml/hr; Site: right antecubital; mg2 03:30 Follow up: IV Status: Infusion continued upon admission mg2 Intake: 03:30 IV: 500ml; Total: 500ml. mg2 Outcome: 02:48 Decision to Hospitalize by Provider. faye 03:20 Admitted to Med/surg accompanied by nurse, via wheelchair, room 232, with oxygen, with mg2 chart, Report called to STEVE Farrell 03:20 Condition: stable 03:20 Instructed on the need for admit, Demonstrated understanding of instructions. 03:31 Patient left the ED. mg2 03:52 Patient left the ED. mg2 Signatures: Dispatcher [employer] EDTX Hipolito Ty MD MD cha Gardose, Michele, RN RN mg2 Corrections: (The following items were deleted from the chart) 02:58 02:47 Pain: Complains of pain in chest mg2 mg2 03:20 03:07 Pulse 85bpm; Resp 22bpm; Pulse Ox 100% Nebulizer Mask; mg2 mg2
--- NOTE | 2019-12-12 02:48 | EDPHYS ---
Physician Documentation [facility] Name: Roxanne Duran Age: 49 yrs Sex: Female : 1970 Arrival Date: 12/12/2019 Time: 02:14 Bed 6 Private MD: JARETH Physician Hipolito Ty HPI: 12/11 02:37 This 49 yrs old Female presents to ER via EMS with complaints of dyspnea, faye copd exacerbation. 02:37 The patient has shortness of breath at rest, with light activity. Onset: The faye symptoms/episode began/occurred 2 day(s) ago. Duration: The symptoms are continuous, and are unchanged since they started. The patient's shortness of breath is aggravated by exertion, light activity, supine position, walking, is alleviated by elevating head, nebulizer treatment, pursed lip breathing, rest, application of supplemental oxygen. The patient presents to the emergency department with wheezing, Current therapy: albuterol inhaler, albuterol nebs, that began without any particular precipitating event, the patient was reported to have audible wheezing, chest tightness, trouble breathing. Associated signs and symptoms: Pertinent positives: non-productive cough, dizziness. Severity of symptoms: At their worst the symptoms were mild moderate in the emergency department the symptoms are unchanged. 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 - Social history:: Smoking status: Patient/guardian denies using tobacco, Patient/guardian denies using alcohol, street drugs, IV drugs. - Family history:: not pertinent. ROS: 02:37 Constitutional: Negative for fever, chills, and weight loss, Eyes: Negative for injury, faye pain, redness, and discharge, ENT: Negative for injury, pain, and discharge, Neck: Negative for injury, pain, and swelling, Cardiovascular: Negative for chest pain, palpitations, and edema, Abdomen/GI: Negative for abdominal pain, nausea, vomiting, diarrhea, and constipation, Back: Negative for injury and pain, : Negative for injury, bleeding, discharge, and swelling, MS/Extremity: Negative for injury and deformity, Skin: Negative for injury, rash, and discoloration, Neuro: Negative for headache, weakness, numbness, tingling, and seizure, Psych: Negative for depression, anxiety, suicide ideation, homicidal ideation, and hallucinations, Allergy/Immunology: Negative for hives, rash, and allergies, Endocrine: Negative for neck swelling, polydipsia, polyuria, polyphagia, and marked weight changes, Hematologic/Lymphatic: Negative for swollen nodes, abnormal bleeding, and unusual bruising. 02:37 Respiratory: Positive for cough, shortness of breath, wheezing, inspiratory, expiratory. 02:37 Respiratory: Positive for 02:37 MS/extremity: Negative for acute changes, injury or acute deformity, swelling, tenderness. Exam: 02:40 Constitutional: This is a well developed, well nourished patient who is awake, alert, faye and in no acute distress. Head/Face: Normocephalic, atraumatic. Eyes: Pupils equal round and reactive to light, extra-ocular motions intact. Lids and lashes normal. Conjunctiva and sclera are non-icteric and not injected. Cornea within normal limits. Periorbital areas with no swelling, redness, or edema. ENT: Nares patent. No nasal discharge, no septal abnormalities noted. Tympanic membranes are normal and external auditory canals are clear. Oropharynx with no redness, swelling, or masses, exudates, or evidence of obstruction, uvula midline. Mucous membranes moist. Neck: Trachea midline, no thyromegaly or masses palpated, and no cervical lymphadenopathy. Supple, full range of motion without nuchal rigidity, or vertebral point tenderness. No Meningismus. Chest/axilla: Normal chest wall appearance and motion. Nontender with no deformity. No lesions are appreciated. Cardiovascular: Regular rate and rhythm with a normal S1 and S2. No gallops, murmurs, or rubs. Normal PMI, no JVD. No pulse deficits. Abdomen/GI: Soft, non-tender, with normal bowel sounds. No distension or tympany. No guarding or rebound. No evidence of tenderness throughout. Back: No spinal tenderness. No costovertebral tenderness. Full range of motion. Female : Normal external genitalia. Skin: Warm, dry with normal turgor. Normal color with no rashes, no lesions, and no evidence of cellulitis. MS/ Extremity: Pulses equal, no cyanosis. Neurovascular intact. Full, normal range of motion. Neuro: Awake and alert, GCS 15, oriented to person, place, time, and situation. Cranial nerves II-XII grossly intact. Motor strength 5/5 in all extremities. Sensory grossly intact. Cerebellar exam normal. Normal gait. Psych: Awake, alert, with orientation to person, place and time. Behavior, mood, and affect are within normal limits. 02:40 Respiratory: moderate respiratory distress is noted, Respirations: labored breathing, that is moderate, Breath sounds: decreased breath sounds, rhonchi, wheezing: inspiratory expiratory Respiratory rate: 29 02:48 ECG was reviewed by the Attending Physician. faye Vital Signs: 02:14 BP 99 / 57; Resp 29; Temp 98.2; Weight 85.28 kg; Height 5 ft. 4 in. (162.56 cm); mg2 02:46 Pulse 80; Pulse Ox 100% on 2 lpm NC; mg2 03:07 BP 97 / 56; Pulse 85; Resp 22; Pulse Ox 100% on Nebulizer Mask; mg2 02:14 Body Mass Index 32.27 (85.28 kg, 162.56 cm) mg2 MDM: 02:16 Patient medically screened. faye 02:41 Differential diagnosis: asthma, Bronchitis CHF exacerbation, Chronic Obstructive faye Pulmonary Disease acute asthma, exercise-induced asthma, reactive airway, pneumonia, Pneumothorax pulmonary edema, Pulmonary Embolism reactive airway disease. Antibiotic administration: Levaquin given. The patient's Wells Deep Vein Thrombosis Score was calculated as follows: Total Score: 0-2 Pts- Low Risk. The patient's pulmonary embolism risk score was calculated as follows: Total Score: 0-2 points. This patient was found to be at low risk for a pulmonary embolism by using the Well's assessment criteria. Immunization status: Influenza vaccine: Data reviewed: vital signs, nurses notes, lab test result(s), EKG, radiologic studies, CT scan, plain films. Data interpreted: cardiac monitor: rate is 112 beats/min, rhythm is regular, Pulse oximetry: on room air is 95 %. Test interpretation: by ED physician or midlevel provider: ECG, plain radiologic studies. ED course: failed outpt treatment. 12/11 02:36 Order name: Basic Metabolic Panel; Complete Time: 03:38 faye 12/11 02:36 Order name: CBC with Diff; Complete Time: 03:38 12/11 02:36 Order name: LFT's; Complete Time: 03:38 12/11 02:36 Order name: Magnesium; Complete Time: 03:38 12/11 02:36 Order name: NT PRO-BNP; Complete Time: 03:38 12/11 02:36 Order name: Troponin (emerg Dept Use Only); Complete Time: 03:38 12/11 02:36 Order name: XRAY Chest (1 view) 12/11 03:40 Order name: Urine --Ancillary (enter results) tt3 12/11 03:40 Order name: Urine Dipstick--Ancillary (enter results) tt3 12/11 03:47 Order name: Urine --Ancillary EDMS 12/11 03:47 Order name: Urine Dipstick-Ancillary EDMS 12/11 02:36 Order name: EKG; Complete Time: 02:37 [facility] 12/11 02:36 Order name: Cardiac monitoring; Complete Time: 02:38 12/11 02:36 Order name: EKG - Nurse/Tech; Complete Time: 02:46 faye 12/11 02:36 Order name: IV Saline Lock; Complete Time: 02:39 [facility] 12/11 02:36 Order name: Labs collected and sent; Complete Time: 02:39 12/11 02:36 Order name: O2 Per Protocol; Complete Time: 02:39 12/11 02:36 Order name: O2 Sat Monitoring; Complete Time: 02:39 [facility] EC:48 Rate is 77 beats/min. Rhythm is regular. QRS [place] is Normal. AR interval is normal. QRS faye interval is normal. QT interval is normal. No Q waves. T waves are Normal. No ST changes noted. Clinical impression: Normal ECG and No evidence of ischemia. Interpreted by me. Reviewed by me. Administered Medications: 02:46 Drug: NS 0.9% 500 ml Route: IV; Rate: bolus; Site: right antecubital; mg2 03:30 Follow up: Response: No adverse reaction; IV Status: Completed infusion; IV Intake: mg2 500ml 02:46 Drug: SOLU-Medrol 125 mg Route: IVP; Site: right antecubital; mg2 03:31 Follow up: Response: No adverse reaction mg2 02:46 Drug: Xopenex 3.75 mg Route: Inhalation; mg2 03:31 Follow up: Response: No adverse reaction mg2 02:46 Drug: AtroVENT Aerosol 0.5 mg Route: Inhalation; mg2 03:31 Follow up: Response: No adverse reaction mg2 03:06 Drug: levofloxacin 500 mg Volume: 100 ml; Route: IVPB; Infused Over: 60 mins; Site: mg2 right antecubital; 03:31 Follow up: IV Status: Infusion continued upon admission mg2 03:30 Drug: NS 0.9% 1000 ml Route: IV; Rate: 125 ml/hr; Site: right antecubital; mg2 03:30 Follow up: IV Status: Infusion continued upon admission mg2 Disposition: 12/12/19 02:48 Hospitalization ordered by Prince Marcus for Inpatient Admission. Preliminary diagnosis are Chronic obstructive pulmonary disease with (acute) exacerbation, Dyspnea - failed outpt treatment, Hypokalemia. - Bed requested for Telemetry/MedSurg (Inpatient). - Status is Inpatient Admission. mg2 - Condition is Fair. - Problem is new. - Symptoms have improved. Signatures: Dispatcher [employer] EDMS Mary Beth Sidhu RN RN mw Anderson, Corey, MD MD cha Gardose, Michele, RN RN mg2 Corrections: (The following items were deleted from the chart) 02:48 02:48 Hospitalization Ordered by Prince Marcus BELCHER for Inpatient Admission. Preliminary faye diagnosis is Chronic obstructive pulmonary disease with (acute) exacerbation; Dyspnea. Bed requested for Telemetry/MedSurg (Inpatient). Status is Inpatient Admission. Condition is Fair. Problem is new. Symptoms have improved. [facility] 03:03 02:48 12/12/2019 02:48 Hospitalization Ordered by Prince Marcus BELCHER for Inpatient mw Admission. Preliminary diagnosis is Chronic obstructive pulmonary disease with (acute) exacerbation; Dyspnea - failed outpt treatment. Bed requested for Telemetry/MedSurg (Inpatient). Status is Inpatient Admission. Condition is Fair. Problem is new. Symptoms have improved. faye 03:31 03:03 12/12/2019 02:48 Hospitalization Ordered by Prince Marcus BELCHER for Inpatient mg2 Admission. Preliminary diagnosis is Chronic obstructive pulmonary disease with (acute) exacerbation; Dyspnea - failed outpt treatment. Bed requested for Telemetry/MedSurg (Inpatient). Status is Inpatient Admission. Condition is Fair. Problem is new. Symptoms have improved. mw 03:39 03:31 12/12/2019 02:48 Hospitalization Ordered by Prince Marcus BELCHER for Inpatient faye Admission. Preliminary diagnosis is Chronic obstructive pulmonary disease with (acute) exacerbation; Dyspnea - failed outpt treatment. Bed requested for Telemetry/MedSurg (Inpatient). Status is Inpatient Admission. Condition is Fair. Problem is new. Symptoms have improved. mg2 03:52 03:39 12/12/2019 02:48 Hospitalization Ordered by Prince Marcus BELCHER for Inpatient mg2 Admission. Preliminary diagnosis is Chronic obstructive pulmonary disease with (acute) exacerbation; Dyspnea - failed outpt treatment; Hypokalemia. Bed requested for Telemetry/MedSurg (Inpatient). Status is Inpatient Admission. Condition is Fair. Problem is new. Symptoms have improved. faye
[2019-12-12 02:53] LABS: Absolute Lymphocytes (CBC) 2.3 K/uL (0.7-4.9); Basophils % 0.8 % (0-1.3); Hematocrit 37.9 % (36.0-45.0); Lymphocytes % 36.8 % (15.3-44.8); MPV 8.2 fL (7.6-11.3); RBC Red Blood Cell Count 4.02 M/uL (3.86-4.86)
[2019-12-12] MEDS ORDERED: IPRATROPIUM BROM 0.5MG/2.5ML ONE (02:54)
[2019-12-12] MEDS ORDERED: METHYLPREDNISOLONE 125 MG INJ ONE (02:54)
[2019-12-12] MEDS ORDERED: LEVALBUTEROL 1.25 MG/3 ML NEB ONE (02:54)
[2019-12-12] MEDS ORDERED: NA CHLORIDE 0.9% 1,000 ML ONE (02:55)
[2019-12-12] MEDS ORDERED: Levofloxacin500mg IV 500 MG/100 ML BAG IV ONE (02:55)
[2019-12-12 03:11] LABS: ALT/SGPT 11 U/L (12-78); AST/SGOT 13 U/L (15-37); Albumin 3.2 g/dL (3.4-5.0); Alkaline Phosphatase 85 U/L (45-117); BUN Blood Urea Nitrogen 11 mg/dL (7-18); Bicarbonate 30 mmol/L (21-32); Bilirubin Direct < 0.1 mg/dL (0-0.2); Bilirubin Total 0.2 mg/dL (0.2-1.0); Glucose Level 97 mg/dL (74-106); NT PRO-BNP 472 pg/mL (<125); Potassium 3.4 mmol/L (3.5-5.1); Protein, Total 6.5 g/dL (6.4-8.2); Sodium Level 144 mmol/L (136-145); Troponin (Emerg Dept Use Only) < 0.02 ng/mL (0.0-0.045)
--- NOTE | 2019-12-12 03:15 | P.HP ---
Certification for Inpatient Patient admitted to: Inpatient With expected LOS: >2 Midnights Practitioner: I am a practitioner with admitting privileges, knowledge of patient current condition, hospital course, and medical plan of care. Services: Services provided to patient in accordance with Admission requirements found in Title 42 Section 412.3 of the Code of Federal Regulations Patient History Date of Service: 12/12/19 Reason for admission: difficulty breathing History of Present Illness: Patient is a 49 year old female with a known PMH of COPD intermittently on O2, and anxiety disorder who returns to the hospital a few days after a recent ER visit for shortness of breath. She has been having difficulty breathing for some time. She reports shortness of breath with minimal exertion, increased productive cough with whitish sputum. These symptoms would exacerbate her anxiety, which in turn worsens her respiratory status. Her lowest O2 saturation was 83 % on room air when performing minimal exertion such as ambulating to the bathroom. She denies any fever, chills. She also denies ongoing use of tobacco smoking. She quit 2 years ago and remained nicotine-free. As stated above, she was seen a few days in this ER for similar complaints and was discharged on azithromycin and prednisone. She failed outpatient therapy. States she developed intermittent diarrhea since being on azithromycin. Patient has seen 2 Pulmonologists in the past for her condition. She was first told to use continuous supplemental O2 when she was seen by a Central Office Operator Supervisor in [place]. However, during a recent visit early this month with Dr. Sousa, she was told that she did not need continuous use of supplemental O2. Allergies No Known Drug Allergies Allergy (Verified 10/10/19 03:09) Unknown No Known Allergies Allergy (Uncoded 10/10/19 03:09) Unknown Home Medications: Albuterol Neb [Proventil 0.083% Neb Soln] 2.5 mg IH BID 05/19/17 Albuterol Sulfate [Proair Hfa] 2 puff IH PRN 05/19/17 Buspirone HCl [Buspar] 10 mg PO BID 10/10/19 Venlafaxine HCl 75 mg PO BEDTIME 10/10/19 Fluticasone/Salmeterol [Airduo Respiclick 113-14 Mcg] 1 each IH BID #1 aer.[email or web address] 10/11/19 Ipratropium Neb [Atrovent*] 0.5 mg IH Q6H #120 amp 10/11/19 predniSONE [Prednisone*] 20 mg PO BID #8 tab 10/11/19 - Past Medical/Surgical History Diabetic: No -: COPD -: ANXIETY -: HYSTERECTOMY Psychosocial/ Personal History: Patient lives at home with her children is currently unemployed - Family History Mother Notes: OXYGEN DEPENDENT, SMOKER Father -: Lung disease, GI disease, Kidney disease Notes: SMOKER - Social History Alcohol use: No CD- Drugs: No Caffeine use: Yes Physical Examination - Physical Exam General: Cooperative, Moderate distress HEENT: Atraumatic, Normocephalic, EOMI Neck: Supple Respiratory: Diminished, Expiratory wheezes Cardiovascular: No edema, Normal pulses, Regular rate/rhythm, Normal S1 S2 Gastrointestinal: Normal bowel sounds, Soft and benign, Non-distended, No tenderness Musculoskeletal: No clubbing, No swelling, No contractures, No erythema, No tenderness, No warmth Integumentary: No rashes, No breakdown, No significant lesion, No tenderness/swelling, No erythema, No warmth, No cyanosis Neurological: Normal speech, Sensation intact, Normal affect - Studies Laboratory Data (last 24 hrs) 12/12/19 02:30: WBC 6.3 D, Hgb 12.9, Hct 37.9, Plt Count 202 Assessment and Plan - Problems (Diagnosis) (1) Anxiety Current Visit: Yes Status: Acute (2) COPD exacerbation Onset Date: 05/20/17 Current Visit: No Status: Acute (3) Hypokalemia Current Visit: Yes Status: Acute - Advance Directives Does patient have a Living Will: No Does patient have a Durable POA for Healthcare: No Physician Review Additional Text: Assessment 49 year old female with known PMH of COPD currently admitted with COPD exacerbation after failing outpatient therapy. Acute COPD exacerbation Anxiety disorder Hypokalemia Former smoker PLAN: Admit inpatient with telemetry Continue systemic corticosteroids, levofloxacin and duoNebs I will consult Dr. Sousa, patient's retail representative Replace potassium Resume home dose of anxiolytics
[2019-12-12 03:47] LABS: Urine Blood TRACE (NEG); Urine Glucose NEGATIVE (NEG); Urine Protein NEGATIVE (NEG); Urine pH 6.5 (5.0-7.0)
[2019-12-12] MEDS ORDERED: POTASSIUM CL SA 10 MEQ TAB PO ONE (03:58)
[2019-12-12] MEDS: METHYLPREDNISOLONE 125 MG INJ IV SCH ×2 (03:58→10:21)
[2019-12-12] MEDS: IPRATROPIUM BROM 0.5MG/2.5ML NEB SCH ×4 (04:00→19:50)
[2019-12-12] MEDS: ALBUTEROL 2.5 MG/3 ML NEB SOL NEB SCH ×4 (04:00→19:50)
[2019-12-12 04:04] VITALS: BMI 32.3
[2019-12-12] MEDS ORDERED: POTASSIUM 25 MEQ EFFERV TAB PO ONE (04:07)
[2019-12-12] MEDS ORDERED: MAGNESIUM SULFATE 1 gm IVPB 1 GM/100 ML BAG IV ONE (04:07)
[2019-12-12] MEDS ORDERED: LEVALBUTEROL 1.25 MG/3 ML NEB NEB ONE (04:07)
[2019-12-12] MEDS ORDERED: FAMOTIDINE 20 MG/2 ML VIAL IV ONE (04:11)
[2019-12-12] MEDS ORDERED: BUSPIRONE HCL 5 MG TABLET PO SCH (09:00)
--- NOTE | 2019-12-12 09:31 | EKG ---
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
[2019-12-12] MEDS ORDERED: ACETAMINOPHEN 325 MG TABLET PO ONE (11:42)
[2019-12-12] MEDS ORDERED: clonazePAM 1 MG TAB PO ONE (11:43)
--- NOTE | 2019-12-12 11:49 | RAD REPORT ---
EXAM DESCRIPTION: RAD - Chest Single View - 12/12/2019 2:57 am CLINICAL HISTORY: COPD;Cough Chest pain. COMPARISON: Chest Single View dated 12/08/2019; Chest Single View dated 10/09/2019; Chest Pa And Lat (2 Views) dated 05/31/2017; Chest Single View dated 05/19/2017 FINDINGS: Portable technique limits examination quality. The lungs are mildly emphysematous but grossly clear. The heart is normal in size. No displaced fract ures. IMPRESSION: Mild COPD.
[2019-12-12] MEDS ORDERED: VENLAFAXINE HCL 75 MG TABLET PO ONE (12:00)
[2019-12-12] MEDS: CEFTRIAXONE/SWI 1gm 1 GM/10 ML SYR IV SCH ×2 (12:00→22:16)
[2019-12-12] MEDS: METHYLPREDNISOLONE 40 MG INJ IV SCH (16:00)
[2019-12-12] MEDS ORDERED: Levofloxacin 750mg IV 750 MG/150 ML BAG IV SCH (21:00)
[2019-12-12] MEDS ORDERED: VENLAFAXINE HCL 75 MG TABLET PO SCH (21:00)
[2019-12-12] MEDS ORDERED: CEFTRIAXONE 1 GM/NS 50 ML 1 GM/50 ML BAG IV SCH (21:00)
[2019-12-12] MEDS: VENLAFAXINE HCL 75 MG TABLET PO SCH (22:15)
[2019-12-13] MEDS: METHYLPREDNISOLONE 40 MG INJ IV SCH ×3 (01:04→15:59)
[2019-12-13] MEDS: IPRATROPIUM BROM 0.5MG/2.5ML NEB SCH ×4 (01:15→20:35)
[2019-12-13] MEDS: ALBUTEROL 2.5 MG/3 ML NEB SOL NEB SCH ×4 (01:15→20:35)
[2019-12-13] MEDS ORDERED: ACETAMINOPHEN 500 MG TAB PO PRN (04:31)
--- NOTE | 2019-12-13 07:39 | P.PN ---
Subjective Date of Service: 12/12/19 Had a long discussion with patient. Clinically patient appears to be doing better. No new complaints voiced. She does state that she gets hypoxic at home as she has a O2 sat monitor and this causes her to start panicking. Her panic attacks have left her disabled as she is not really able to do anything s ocially. She is not able to hold down a job and she rarely leaves her home because she is worried she will need her oxygen. She has had pulmonary function test recently as well that did not reveal any severe pulmonary pathology except for mild COPD according to the patient. I believe a lot of her symptoms are exacerbated by the fact that she is not able to control her anxiety. She is hypoxic slightly today. She has borrowed home oxygen and uses it occasionally. At this time she is 88% room air so will monitor her and see how she does over the next couple of days. Review of Systems 10-point ROS is otherwise unremarkable Physical Examination - Vital Signs Temperature: 97.7 F Blood Pressure: 118/57 Pulse: 94 Respirations: 18 Pulse Ox (%): 95 - Physical Exam General: Alert, In no apparent distress, Oriented x3 Respiratory: Diminished, Expiratory wheezes Cardiovascular: Regular rate/rhythm, Normal S1 S2, No murmurs Gastrointestinal: Normal bowel sounds, Soft and benign, Non-distended, No tenderness Musculoskeletal: No clubbing, No swelling, No tenderness Neurological: Normal affect Lymphatics: No axilla or inguinal lymphadenopathy - Studies Medications List Reviewed: Yes Assessment & Plan - Problems (Diagnosis) (1) Acute on chronic respiratory failure with hypoxia Current Visit: No Status: Acute (2) COPD exacerbation Onset Date: 05/20/17 Current Visit: No Status: Acute - Plan Plan: 1. Continue with albuterol and Atrovent nebs 2. Continue with IV steroids 3. Pulmonary consultation 4. Control of anxiety 5. Room air O2 sats 6. Repeat chest x-ray in the morning 7. GI and DVT prophylaxis Discharge Plan: Home Plan to discharge in: Greater than 2 days - Advance Directives Does patient have a Living Will: No Does patient have a Durable POA for Healthcare: No - Code Status/Comfort Care Code Status Assessed: Yes Code Status: Full Code Critical Care: No Time Spent Managing PTS Care (In Minutes): 30
[2019-12-13] MEDS: VENLAFAXINE HCL 75 MG TABLET PO SCH ×2 (07:47→20:23)
[2019-12-13] MEDS: CEFTRIAXONE/SWI 1gm 1 GM/10 ML SYR IV SCH (07:47)
--- NOTE | 2019-12-13 11:05 | P.CNS ---
Date of Consult: 12/13/19 Reason for Consult: COPD exacerbation Chief Complaint: Shortness of breath History of Present Illness: Patient is 49 years of age well known to me with a history of mild COPD continues to have frequent exacerbations became worse over the past week complaining of shortness of breath on mild exertion she is compliant with it trilogy using oxygen on a p.r.n. basis seems to have flare ups at least every month denies any cough chest pain as here in the emergency room negative for pulmonary embolism chest x-rays shows COPD changes Allergies No Known Drug Allergies Allergy (Verified 12/12/19 03:53) Unknown No Known Allergies Allergy (Uncoded 12/12/19 03:53) Unknown Home Medications: Albuterol Neb [Proventil 0.083% Neb Soln] 2.5 mg IH BID 05/19/17 Albuterol Sulfate [Proair Hfa] 2 puff IH PRN 05/19/17 Buspirone HCl [Buspar] 10 mg PO BID 10/10/19 Venlafaxine HCl 75 mg PO BEDTIME 10/10/19 predniSONE [Prednisone*] 20 mg PO BID #8 tab 10/11/19 - Past Medical/Surgical History Diabetic: No -: COPD -: ANXIETY -: HYSTERECTOMY Psychosocial/ Personal History: Patient lives at home with her children is currently unemployed - Family History Mother Medical History: Lung disease, Other (see notes) Notes: OXYGEN DEPENDENT, SMOKER. depresssion Father Medical History: Lung disease, GI disease, Kidney disease Notes: SMOKER - Social History Smoking Status: Current every day smoker Alcohol use: No CD- Drugs: No Caffeine use: Yes Place of Residence: Home Review of Systems 10-point ROS is otherwise unremarkable Physical Examination Temp Pulse Resp BP Pulse Ox 98.0 F 97 H 28 H 117/59 L 94 12/13/19 08:00 12/13/19 08:00 12/13/19 08:00 12/13/19 08:00 12/13/19 08:00 General: Alert, In no apparent distress, Oriented x3 Respiratory: Expiratory wheezes Cardiovascular: No edema, Regular rate/rhythm, Normal S1 S2 Gastrointestinal: Normal bowel sounds, Soft and benign Musculoskeletal: No clubbing, No swelling - Problems (1) COPD exacerbation Onset Date: 05/20/17 Current Visit: No Status: Acute Plan: Patient is 49 years of age airway admitted with COPD exacerbation she is doing well however patient complains of dyspnea on mild exertion history of frequent exacerbations compliant with trilogy no evidence of pulmonary embolism I have added theophylline and Zithromax Dc ceftriaxone I have also added Brovana vital signs oxygenation satisfactory possible discharge tomorrow prednisone 20 mg twice a day for a week continue with Zithromax 250 mg once a day due to recurrent exacerbations
[2019-12-13] MEDS ORDERED: VENLAFAXINE HCL 75 MG TABLET PO ONE (11:45)
[2019-12-13] MEDS: AZITHROMYCIN 250 MG TAB PO SCH (12:00)
[2019-12-13] MEDS: THEOPHYLLINE SR 100 MG TAB PO SCH ×2 (12:01→20:22)
[2019-12-13] MEDS: ARFORMOTEROL TARTRATE 15 MCG/2 ML VIAL.NEB NEB SCH ×2 (13:00→20:35)
[2019-12-14] MEDS: METHYLPREDNISOLONE 40 MG INJ IV SCH ×2 (00:59→08:30)
[2019-12-14] MEDS: ALBUTEROL 2.5 MG/3 ML NEB SOL NEB SCH ×2 (01:20→07:35)
[2019-12-14] MEDS: IPRATROPIUM BROM 0.5MG/2.5ML NEB SCH ×2 (01:20→07:35)
[2019-12-14 01:50] VITALS: O2SAT 93
--- NOTE | 2019-12-14 06:44 | P.PN ---
Subjective Date of Service: 12/13/19 patient is still not feeling well today. Still short of breath. Anxiety level is improved. Continue Buspar with effexor. Pulmonary has seen the patient and recommend possible discharge home in the morning. They will follow patient as an outpatient. She does have home oxygen at home. Review of Systems 10-point ROS is otherwise unremarkable Physical Examination - Vital Signs Temperature: 97.5 F Blood Pressure: 125/58 Pulse: 84 Respirations: 16 Pulse Ox (%): 95 - Physical Exam General: Alert, In no apparent distress, Oriented x3 Respiratory: Diminished, Expiratory wheezes Cardiovascular: Regular rate/rhythm, Normal S1 S2, Systolic murmur Gastrointestinal: Normal bowel sounds, Soft and benign, Non-distended, No tenderness Musculoskeletal: No clubbing, No swelling, No tenderness Neurological: Normal strength at 5/5 x4 extr, Normal tone, Sensation intact, Cranial nerves 3-12 intact - Studies Medications List Reviewed: Yes Assessment & Plan - Problems (Diagnosis) (1) Acute on chronic respiratory failure with hypoxia Current Visit: No Status: Acute (2) COPD exacerbation Onset Date: 05/20/17 Current Visit: No Status: Acute (3) Anxiety disorder Current Visit: Yes Status: Acute Qualifiers: 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 Continue with albuterol and Atrovent nebs; added brovana 2. Continue with IV steroids 3. Pulmonary consultation appreciated 4. Control of anxiety 5. Room air O2 sats 6. Repeat chest x-ray in the morning 7. GI and DVT prophylaxis Discharge Plan: Home Plan to discharge in: Greater than 2 days - Advance Directives Does patient have a Living Will: No Does patient have a Durable POA for Healthcare: No - Code Status/Comfort Care Code Status: Full Code Critical Care: No Time Spent Managing PTS Care (In Minutes): 35
[2019-12-14] MEDS: ARFORMOTEROL TARTRATE 15 MCG/2 ML VIAL.NEB NEB SCH (07:35)
--- NOTE | 2019-12-14 08:13 | P.DS ---
Admission Date: 12/12/19 Discharge Date: 12/14/19 Primary Care Provider: [place] Krystal Carlton Disposition: ROUTINE DISCHARGE Discharge Condition: GOOD Reason for Admission: Shortness of breath Consultations: Pulmonary-Dr. Barrera Procedures: CXR: FINDINGS: Portable technique limits examination quality. The lungs are mildly emphysematous but grossly clear. The heart is normal in size. No displaced fractures. IMPRESSION: Mild COPD. Medical Problem List: Acute on chronic respiratory failure with hypoxia secondary to COPD exacerbation on home oxygen Anxiety and panic disorder Brief History of Present Illness: 49-year-old female with history of COPD and anxiety/panic disorder. Patient presented with shortness of breath. Patient found to have acute respiratory failure with hypoxia secondary to COPD exacerbation. Patient was admitted for further evaluation and treatment. Hospital Course: Patient presented with acute on chronic respiratory failure with hypoxia secondary to COPD exacerbation. Patient has home oxygen. The patient was treated with IV steroids and antibiotic therapy. Patient seen and evaluated by pulmonology. Chest x-ray revealed no pneumonia. Patient was started on Zithromax due to recurrent COPD exacerbations. Pulmonology added Theophylline to her regimen. At discharge patient has done well. No significant shortness of breath noted. Patient currently on 1.5 L per nasal cannula. At discharge patient will continue with prednisone 20 mg 1 pill twice daily for 5 days then 1 pill once daily for 5 days. New medication includes: Theophylline 200 mg one pill BID. The patient will also continue with Zithromax 250 mg daily for 14 days. At discharge she will continue with her home medications including Trelegy 1 puff daily and albuterol 2 puffs 3 times a day as needed for shortness of breath. Patient will continue with home oxygen to maintain sats above 93%. Patient currently on 1.5 L per min. Recommend follow up with pulmonology in 1-2 weeks to follow up this hospitalization. Further adjustment in medication can be done by pulmonology. Education on COPD provided. Patient with anxiety/panic disorder. This has remained stable. At discharge she will continue with Venlafaxine 75 mg at bedtime and Buspar 10 mg 1 pill twice daily. Recommend follow up with her PCP to further monitor and address. Patient may benefit psychiatry evaluation as an outpatient to further address and monitor. Vital Signs/Physical Exam: Temp Pulse Resp BP Pulse Ox 97.7 F 94 H 18 118/57 L 95 10/26/20 06:45 12/14/19 06:45 12/14/19 06:45 12/14/19 06:45 12/14/19 06:45 General: Alert, In no apparent distress, Oriented x3, Cooperative HEENT: Atraumatic Neck: Supple Respiratory: Clear to auscultation bilaterally, Normal air movement Cardiovascular: Normal pulses, Regular rate/rhythm Gastrointestinal: Normal bowel sounds, Soft and benign, Non-distended, No tenderness, No masses, No rebound, No guarding Musculoskeletal: No erythema, No tenderness, No warmth Integumentary: No tenderness/swelling, No erythema, No warmth, No cyanosis Neurological: Normal speech, Normal strength at 5/5 x4 extr, Normal tone, Normal affect Laboratory Data at Discharge: WBC 6.3 K/uL (4.3-10.9) D 12/12/19 02:30 Hgb 12.9 g/dL (12.0-15.0) 12/12/19 02:30 Hct 37.9 % (36.0-45.0) 12/12/19 02:30 Plt Count 202 K/uL (152-406) 12/12/19 02:30 Sodium 144 mmol/L (136-145) 12/12/19 02:30 Potassium 3.4 mmol/L (3.5-5.1) L 12/12/19 02:30 BUN 11 mg/dL (7-18) 12/12/19 02:30 Creatinine 0.93 mg/dL (0.55-1.3) 12/12/19 02:30 Glucose 97 mg/dL (74-106) 12/12/19 02:30 Magnesium 2.0 mg/dL (1.8-2.4) 12/12/19 02:30 Total Bilirubin 0.2 mg/dL (0.2-1.0) 12/12/19 02:30 AST 13 U/L (15-37) L 12/12/19 02:30 ALT 11 U/L (12-78) L 12/12/19 02:30 Alkaline Phosphatase 85 U/L (45-117) 12/12/19 02:30 Home Medications: Buspirone HCl [Buspar] 10 mg PO BID 10/10/19 Venlafaxine HCl 75 mg PO BEDTIME 10/10/19 Albuterol Neb [Proventil 0.083% Neb Soln] 2.5 mg IH TID PRN #90 amp 12/14/19 Albuterol Sulfate [Proair Hfa] 2 puff IH TID PRN #1 12/14/19 Azithromycin Tab [Zithromax*] 250 mg PO DAILY #14 tab 12/14/19 Fluticasone/Umeclidin/Vilanter [Trelegy Ellipta 100-62.5-25] 1 each IH DAILY #1 blst.w.dev 12/14/19 Theophylline [Jack-Dur*] 200 mg PO BID #120 tab 12/14/19 predniSONE [Prednisone*] 20 mg PO SEECOM #15 tab 12/14/19 New Medications: predniSONE [Prednisone*] 20 mg PO SEECOM #15 tab Albuterol Sulfate [Proair Hfa] 2 puff IH TID PRN #1 PRN Reason: Shortness Of Breath Albuterol Neb [Proventil 0.083% Neb Soln] 2.5 mg IH TID PRN #90 amp PRN Reason: Shortness Of Breath Theophylline [Jack-Dur*] 200 mg PO BID #120 tab Fluticasone/Umeclidin/Vilanter [Trelegy Ellipta 100-62.5-25] 1 each IH DAILY #1 blst.w.dev Azithromycin Tab [Zithromax*] 250 mg PO DAILY #14 tab Patient Discharge Instructions: 1. Recommend follow up with her PCP in 1-2 weeks to follow up this hospitalization. 2. Patient presented with acute on chronic respiratory failure with hypoxia secondary to COPD exacerbation. Patient has home oxygen. The patient was treated with IV steroids and antibiotic therapy. Patient seen and evaluated by pulmonology. Chest x-ray revealed no pneumonia. Patient was started on Zithromax due to recurrent COPD exacerbations. Pulmonology added Theophylline to her regimen. At discharge patient has done well. No significant shortness of breath noted. Patient currently on 1.5 L per nasal cannula. At discharge patient will continue with prednisone 20 mg 1 pill twice daily for 5 days then 1 pill once daily for 5 days. New medication includes: Theophylline 200 mg one pill BID. The patient will also continue with Zithromax 250 mg daily for 14 days. At discharge she will continue with her home medications including Trelegy 1 puff daily and albuterol 2 puffs 3 times a day as needed for shortness of breath. Patient will continue with home oxygen to maintain sats above 93%. Patient currently on 1.5 L per min. Recommend follow up with pulmonology in 1-2 weeks to follow up this hospitalization. Further adjustment in medication can be done by pulmonology. Education on COPD provided. 3. Patient with anxiety/panic disorder. This has remained stable. At discharge she will continue with Venlafaxine 75 mg at bedtime and Buspar 10 mg 1 pill twice daily. Recommend follow up with her PCP to further monitor and address. Patient may benefit psychiatry evaluation as an outpatient to further address and monitor. Diet: AHA Activity: Ad flaca Followup: Unknown,U [Primary Care Provider] - Time spent managing pt's care (in minutes): 55
--- NOTE | 2019-12-14 08:26 | RAD REPORT ---
EXAM DESCRIPTION: RAD - Chest Pa And Lat (2 Views) - 12/14/2019 8:14 am CLINICAL HISTORY: copd followup Chest pain. COMPARISON: Chest Single View dated 12/12/2019; Chest Single View dated 12/08/2019; Chest Single Vie w dated 10/09/2019; Chest Pa And Lat (2 Views) dated 05/31/2017; Chest For Pe Angio dated 12/08/2019 TECHNIQUE: PA and lateral views of the chest were obtained. FINDINGS: The lungs are hyperexpanded compatible with COPD. The heart is upper limit of normal in si ze. No fracture or aggressive bony process. IMPRESSION: COPD without acute process identified.
[2019-12-14] MEDS: THEOPHYLLINE SR 100 MG TAB PO SCH (08:28)
[2019-12-14] MEDS: AZITHROMYCIN 250 MG TAB PO SCH (08:29)
[2019-12-14] MEDS: VENLAFAXINE HCL 75 MG TABLET PO SCH (08:30)
[2019-12-14] MEDS ORDERED: BUSPIRONE HCL 5 MG TABLET PO SCH (09:00)
[2019-12-14 09:21] VITALS: BP 107/60; TEMP 97.6
== END 2019-12-14 10:10 | disposition home or self-care (01) | DRG 189 ==
LOC: ER 02:07 → 2ND 03:26
PROVIDERS: ADMIT Internal Medicine; ATTEND Family Medicine
DX: J96.21 Acute and chronic respiratory failure with hypoxia (principal); J44.1 Chronic obstructive pulmonary disease with (acute) exacerbation; F40.01 Agoraphobia with panic disorder; E87.6 Hypokalemia; Z79.51 Long term (current) use of inhaled steroids; Z79.899 Other long term (current) drug therapy; Z99.81 Dependence on supplemental oxygen; Z79.52 Long term (current) use of systemic steroids; Z90.710 Acquired absence of both cervix and uterus; Z56.0 Unemployment, unspecified; Z87.891 Personal history of nicotine dependence
CPT/HCPCS: 36415; 71045; 71046; 80048; 80076; 81003; 81025; 83735; 83880; 84484; 85025; 93005; 96365; 96375; 99285; J0696; J2920; J2930; J3475; J7030; J7605

== ENCOUNTER 2019-12-25 13:40 | Observation (INO) | payer OTHER ==
--- OUTSIDE RECORDS SUMMARY | 2019-12-25 13:42 | XMS REPORT | Continuity of Care Document ---
:1970 Author Organization [facility] t Address [address] [place] [address] [address] [place] [address] Care Team Providers Name Role Phone Unavailable [...] - XR CHEST 2 V 2019-12-08 11:11:00 [facility] AMADA [facility] : 1970 Sex: F FAX: Jn Barton MD [phone] [place]: [address]: REG Name: AMADA RIVERA [facility] [place] : 1970 Age/S: 49/F [address] [place] [address] Blvd Unit #: [id number] Loc: [place] [address] Phys: Jn Barrios MD Acct: [id number] Dis Date: Status: REG CLI PHONE #: [phone] Exam Date: 12/08/2019 1111 FAX #: [phone] Reason: R06.02, SHORTNESS OF BREATH. EXAMS: CPT CODE: [id number] XR CHEST 2 V 09235 CLINICAL HISTORY: R06.02, SHORTNESS OF BREATH. COMPARISON: [...]
--- NOTE | 2019-12-25 15:49 | RAD REPORT ---
EXAM DESCRIPTION: USExtremtrey Venous Uni Ltd12/25/2019 3:19 pm CLINICAL HISTORY: Right leg pain and swelling. COMPARISON: None. FINDINGS: Right common femoral, superficial femoral, veins are compressible and demonstrate augmenta tion. Doppler demonstrates good flow. Echogenic material consistent with acute thrombus is present within the right popliteal and right pos terior tibial veins. The veins are not compressible. Flow is not seen. IMPRESSION: Occlusive thrombus right popliteal and right posterior tibial veins.
[2019-12-25 16:08] LABS: Absolute Lymphocytes (CBC) 2.3 K/uL (0.7-4.9); Basophils % 1.5 % (0-1.3); Hematocrit 38.6 % (36.0-45.0); Lymphocytes % 30.1 % (15.3-44.8); MPV 7.9 fL (7.6-11.3); RBC Red Blood Cell Count 4.08 M/uL (3.86-4.86)
[2019-12-25 16:13] LABS: Protime INR 0.97
[2019-12-25] MEDS ORDERED: ENOXAPARIN 80 MG/0.8 ML SQ ONE (16:32)
[2019-12-25] MEDS ORDERED: FENTANYL CITR 100 MCG/2 ML ONE (16:32)
[2019-12-25 16:36] LABS: ALT/SGPT 11 U/L (12-78); AST/SGOT 13 U/L (15-37); Alkaline Phosphatase 79 U/L (45-117); BUN Blood Urea Nitrogen 13 mg/dL (7-18); Bicarbonate 30 mmol/L (21-32); Bilirubin Direct < 0.1 mg/dL (0-0.2); Bilirubin Total 0.3 mg/dL (0.2-1.0); Glucose Level 95 mg/dL (74-106); Magnesium 2.1 mg/dL (1.8-2.4); NT PRO-BNP 40 pg/mL (<125); Protein, Total 6.7 g/dL (6.4-8.2); Sodium Level 142 mmol/L (136-145); Troponin (Emerg Dept Use Only) < 0.02 ng/mL (0.0-0.045)
--- NOTE | 2019-12-25 17:15 | RAD REPORT ---
EXAM DESCRIPTION: CT - Chest For Pe Angio - 12/25/2019 5:03 pm CLINICAL HISTORY: Chest pain COMPARISON: November 2019 TECHNIQUE: Dynamically enhanced axial 3 mm thick images of the chest were obtained during administra tion of <100> mL Isovue 370 IV contrast. Coronal and oblique reconstruction images were generated and reviewed. Exam utilizes a protocol for optimal evaluation of pulmonary arterial tree. Maximum intensity projections 3D imaging was utilized All CT scans are performed using dose optimization technique as appropriate and may include automated exposure control or mA/KV adjustment according to patient size. FINDINGS: A pulmonary embolus is not seen. A thoracic aortic aneurysm is not noted. A pleural effusion is not seen. A pericardial effusion is not seen. A lung consolidation is not present. Centrilobular emphysema IMPRESSION: Negative for a pulmonary embolism.
--- NOTE | 2019-12-25 18:26 | ER ---
Nurse's Notes [facility] Name: Roxanne Duran Age: 49 yrs Sex: Female : 1970 Arrival Date: 12/25/2019 Time: 13:43 Bed 17 Private MD: Diagnosis: Occlusive DVT to right popliteal and right posterior tibial veins Presentation: 12/24 13:50 Chief complaint: Patient states: pain and swelling to R lower leg x 4 days. Worse ss today. Coronavirus screen: Client denies travel out of the [place] in the last 14 days. Ebola Screen: Patient denies exposure to infectious person. Patient denies travel to an Ebola-affected area in the 21 days before illness onset. Initial Sepsis Screen: Does the patient meet any 2 criteria? No. Patient's initial sepsis screen is negative. Does the patient have a suspected source of infection? No. Patient's initial sepsis screen is negative. Risk Assessment: Do you want to hurt yourself or someone else? Patient reports no desire to harm self or others. Onset of symptoms was December 21, 2019. 13:50 Method Of Arrival: Wheelchair ss 13:50 Acuity: SHYLA 3 ss Historical: - Allergies: 13:53 No Known Allergies; ss - PMHx: 13:53 Anxiety; COPD; ss - Immunization history:: Adult Immunizations up to date. - Social history:: Smoking status: Patient denies any tobacco usage or history of. Screenin:30 Abuse screen: Denies threats or abuse. Denies injuries from another. Nutritional sv screening: No deficits noted. Tuberculosis screening: No symptoms or risk factors identified. Fall Risk None identified. Assessment: 14:30 General: Appears in no apparent distress. uncomfortable, well developed, Behavior is sv calm, cooperative, appropriate for age. Pain: Complains of pain in right leg Pain currently is 10 out of 10 on a pain scale. Quality of pain is described as pressure, Is continuous. Neuro: Level of Consciousness is awake, alert, obeys commands, Oriented to person, place, time, situation, Moves all extremities. Full function Speech is normal. Respiratory: Airway is patent Respiratory effort is even, unlabored, Respiratory pattern is regular, symmetrical. Derm: Skin is intact, Skin is pink, warm \T\ dry. Musculoskeletal: Swelling present in right leg. 16:27 Reassessment: Patient appears in no apparent distress at this time. No changes from sv previously documented assessment. Patient and/or family updated on plan of care and expected duration. Pain level reassessed. Patient is alert, oriented x 3, equal unlabored respirations, skin warm/dry/pink. 17:15 Reassessment: Patient appears in no apparent distress at this time. Patient and/or sv family updated on plan of care and expected duration. Pain level reassessed. Patient is alert, oriented x 3, equal unlabored respirations, skin warm/dry/pink. 18:01 Reassessment: Angeli PRE K TEACHER is waiting to hear from a vascular surgeon at [facility] about sv possible transfer before deciding if pt will be admitted here or transferred somewhere else. 19:10 Reassessment: Patient appears in no apparent distress at this time. Patient and/or jb4 family updated on plan of care and expected duration. Pain level reassessed. Patient is alert, oriented x 3, equal unlabored respirations, skin warm/dry/pink. 20:30 Reassessment: Patient appears in no apparent distress at this time. Patient and/or jb4 family updated on plan of care and expected duration. Pain level reassessed. Patient is alert, oriented x 3, equal unlabored respirations, skin warm/dry/pink. 21:30 Reassessment: Patient appears in no apparent distress at this time. Patient and/or jb4 family updated on plan of care and expected duration. Pain level reassessed. Patient is alert, oriented x 3, equal unlabored respirations, skin warm/dry/pink. Report called to STEVE Farrell Patient states feeling better. Patient states symptoms have improved. Vital Signs: 13:50 BP 113 / 69; Pulse 107; Resp 24; Temp 98.9(O); Pulse Ox 98% on R/A; Weight 85.28 kg; ss Height 5 ft. 4 in. (162.56 cm); Pain 10/10; 14:00 BP 113 / 69; Pulse 104; Resp 20; Pulse Ox 98% ; sv 15:00 BP 100 / 55; Pulse 93 MON; Resp 16; Pulse Ox 100% ; sv 16:15 BP 105 / 73; Pulse 82; Resp 16; Pulse Ox 96% ; sv 16:45 BP 121 / 57; Pulse 110 MON; Resp 16; Pulse Ox 96% ; sv 18:02 BP 122 / 64; Pulse 90; Resp 20; Pulse Ox 96% on R/A; sv 18:55 BP 104 / 59; Pulse 97 MON; Resp 18; Pulse Ox 96% ; sv 20:30 BP 103 / 57; Pulse 92; Resp 19; Pulse Ox 93% on R/A; jb4 21:30 BP 107 / 54; Pulse 97; Resp 17; Pulse Ox 93% on R/A; jb4 13:50 Body Mass Index 32.27 (85.28 kg, 162.56 cm) ss 15:00 Sinus Rhythm sv 16:45 Sinus tachycardia sv 18:55 Sinus arrythmia sv [place] Coma Score: 16:20 Eye Response: spontaneous(4). Verbal Response: oriented(5). Motor Response: obeys snw commands(6). Total: 15. ED Course: 13:43 Patient arrived in ED. mr 13:44 [facility] snw 13:44 Rickie Enamorado MD is Attending Physician. snw 13:52 Triage completed. ss 13:53 Arm band placed on right wrist. ss 14:30 Patient has correct armband on for positive identification. Placed in gown. Bed in low sv position. Call light in reach. Side rails up X 1. Pulse ox on. NIBP on. Door closed. Warm blanket given. Head of bed elevated. 15:20 US Extremity Venous Unilateral Ltd In Process Unspecified. EDMS 15:59 Inserted saline lock: 20 gauge in right antecubital area, using aseptic technique. dh4 Blood collected. 16:20 Zuri Mayer RN is Primary Nurse. sv 17:04 CT Chest For PE Angio In Process Unspecified. EDMS 17:12 Patient moved back from CT. sv 17:47 initiated a transfer with José Deng from the [facility]. eb 18:[address] Lo the Vascular Surgeon operations inspector for [facility] with Angeli cote for patient transfer consultation. 18:22 Prince Velazquez MD is Hospitalizing Provider. snw 18:55 Awaiting bed assignment. sv 19:08 Report given to Errol WILSON. sv 19:12 Primary Nurse role handed off by Zrui Mayer RN sv 19:21 Daniel Melendez, RN is Primary Nurse. jb4 19:32 Miles Christianson is Hospitalizing Provider. snw 21:39 No provider procedures requiring assistance completed. Patient admitted, IV remains in jb4 place. Administered Medications: 16:27 Drug: fentaNYL (PF) 25 mcg {Note: rass1.} Route: IVP; Site: right antecubital; sv 17:00 Follow up: Response: No adverse reaction; Marked relief of symptoms; RASS: Alert and sv Calm (0) 16:27 Drug: Lovenox 80 mg Route: Sub-Q; Site: right lower abdomen; sv 17:00 Follow up: Response: No adverse reaction sv 19:38 Drug: [place] 10 mg-325 mg 1 tabs {Note: Rass score 0.} Route: PO; jb4 20:30 Follow up: Response: No adverse reaction; Pain is decreased; RASS: Alert and Calm (0) jb4 20:50 Drug: Albuterol 2.5 mg Route: Inhalation; jb4 21:06 Follow up: Response: No adverse reaction; Marked relief of symptoms jb4 Outcome: 18:26 Decision to Hospitalize by Provider. snw 21:39 Admitted to Med/surg accompanied by tech, via stretcher, room 215, with chart, Report jb4 called to STEVE Farrell 21:39 Condition: stable 21:39 Discharge instructions given to patient, Instructed on the need for admit, Demonstrated understanding of instructions. 21:40 Patient left the ED. [facility] Signatures: Dispatcher [employer] EDMS Zuri Mayer RN RN sv Waters, Shelly, [facility] [employer] PILOT-Concepcion Martel mr Bel Sheehan RN RN ss Bryson, James, RN RN [facility] Joanne Molina Donald [facility] Corrections: (The following items were deleted from the chart) 18:56 15:00 BP 100 / 55; Pulse 93bpm; Resp 16bpm; Pulse Ox 100%; sv sv 18:56 16:45 BP 121 / 57; Pulse 110bpm; Resp 16bpm; Pulse Ox 96%; sv sv
--- NOTE | 2019-12-25 18:26 | EDPHYS ---
Physician Documentation [facility] Name: Roxanne Duran Age: 49 yrs Sex: Female : 1970 Arrival Date: 12/25/2019 Time: 13:43 Bed 17 Private MD: ED Physician Rickie Enamorado HPI: 12/24 18:16 This 49 yrs old Female presents to ER via Wheelchair with complaints of Leg snw Swelling. 18:16 The patient presents with pain, that is acute, swelling, tenderness. The complaints snw affect the right calf, right Achilles, right acevedo and anterior aspect of right ankle. Context: The problem was sustained at home, resulted from an unknown cause, the patient can partially bear weight, the patient is able to ambulate, with mild difficulty. Onset: The symptoms/episode began/occurred suddenly, 4 day(s) ago, and became persistent. Modifying factors: The symptoms are alleviated by nothing. Associated signs and symptoms: Pertinent positives: calf tenderness, swelling, warmth. Treatment prior to arrival includes: no previous treatment. Severity of symptoms: At their worst the symptoms were moderate, severe. The patient has not experienced similar symptoms in the past. The patient has been recently seen by a physician: The patient has been recently seen at the [facility] Emergency Department, The patient has been recently been admitted at [facility], COPD exacerbation. Historical: - Allergies: 13:53 No Known Allergies; ss - PMHx: 13:53 Anxiety; COPD; ss - Immunization history:: Adult Immunizations up to date. - Social history:: Smoking status: Patient denies any tobacco usage or history of. ROS: 16:25 Constitutional: Negative for fever, chills, and weight loss, Eyes: Negative for injury, snw pain, redness, and discharge, ENT: Negative for injury, pain, and discharge, Neck: Negative for injury, pain, and swelling, Cardiovascular: Negative for chest pain, palpitations, and edema, Respiratory: Negative for shortness of breath, cough, wheezing, and pleuritic chest pain, Abdomen/GI: Negative for abdominal pain, nausea, vomiting, diarrhea, and constipation, Back: Negative for injury and pain, : Negative for injury, bleeding, discharge, and swelling, Skin: Negative for injury, rash, and discoloration, Neuro: Negative for headache, weakness, numbness, tingling, and seizure, Psych: Negative for depression, anxiety, suicide ideation, homicidal ideation, and hallucinations. 16:25 MS/extremity: Positive for pain, swelling, tenderness, warmth, of the right lower leg. Exam: 16:15 ECG was reviewed by the Attending Physician. snw 16:20 Constitutional: This is a well developed, well nourished patient who is awake, alert, snw and in no acute distress. Head/Face: Normocephalic, atraumatic. Eyes: Pupils equal round and reactive to light, extra-ocular motions intact. Lids and lashes normal. Conjunctiva and sclera are non-icteric and not injected. Cornea within normal limits. Periorbital areas with no swelling, redness, or edema. ENT: Nares patent. No nasal discharge, no septal abnormalities noted. Tympanic membranes are normal and external auditory canals are clear. Oropharynx with no redness, swelling, or masses, exudates, or evidence of obstruction, uvula midline. Mucous membranes moist. Neck: Trachea midline, no thyromegaly or masses palpated, and no cervical lymphadenopathy. Supple, full range of motion without nuchal rigidity, or vertebral point tenderness. No Meningismus. Chest/axilla: Normal chest wall appearance and motion. Nontender with no deformity. No lesions are appreciated. 16:20 Cardiovascular: Rate: tachycardic, Rhythm: regular, Pulses: no pulse deficits are appreciated, Heart sounds: normal. 16:20 Respiratory: Lungs have equal breath sounds bilaterally, clear to auscultation and snw percussion. No rales, rhonchi or wheezes noted. No increased work of breathing, no retractions or nasal flaring. Abdomen/GI: Soft, non-tender, with normal bowel sounds. No distension or tympany. No guarding or rebound. No evidence of tenderness throughout. Back: No spinal tenderness. No costovertebral tenderness. Full range of motion. Skin: Warm, dry with normal turgor. Normal color with no rashes, no lesions, and no evidence of cellulitis. Neuro: Awake and alert, GCS 15, oriented to person, place, time, and situation. Cranial nerves II-XII grossly intact. Motor strength 5/5 in all extremities. Sensory grossly intact. Cerebellar exam normal. Normal gait. Psych: Awake, alert, with orientation to person, place and time. Behavior, mood, and affect are within normal limits. 16:20 Musculoskeletal/extremity: Extremities: grossly normal except: noted in the right calf, right Achilles, right acevedo and anterior aspect of right ankle: swelling, tenderness, Circulation is intact in all extremities. Sensation intact. Calves: are tender, on right, are not equal in size: right is larger than left, from knee to ankle. Vital Signs: 13:50 BP 113 / 69; Pulse 107; Resp 24; Temp 98.9(O); Pulse Ox 98% on R/A; Weight 85.28 kg; ss Height 5 ft. 4 in. (162.56 cm); Pain 10/10; 14:00 BP 113 / 69; Pulse 104; Resp 20; Pulse Ox 98% ; sv 15:00 BP 100 / 55; Pulse 93 MON; Resp 16; Pulse Ox 100% ; sv 16:15 BP 105 / 73; Pulse 82; Resp 16; Pulse Ox 96% ; sv 16:45 BP 121 / 57; Pulse 110 MON; Resp 16; Pulse Ox 96% ; sv 18:02 BP 122 / 64; Pulse 90; Resp 20; Pulse Ox 96% on R/A; sv 18:55 BP 104 / 59; Pulse 97 MON; Resp 18; Pulse Ox 96% ; sv 20:30 BP 103 / 57; Pulse 92; Resp 19; Pulse Ox 93% on R/A; jb4 21:30 BP 107 / 54; Pulse 97; Resp 17; Pulse Ox 93% on R/A; jb4 13:50 Body Mass Index 32.27 (85.28 kg, 162.56 cm) ss 15:00 Sinus Rhythm sv 16:45 Sinus tachycardia sv 18:55 Sinus arrythmia sv [place] Score: 16:20 Eye Response: spontaneous(4). Verbal Response: oriented(5). Motor Response: obeys snw commands(6). Total: 15. MDM: 13:46 Patient medically screened. snw 14:58 Data reviewed: vital signs, nurses notes. Data interpreted: Pulse oximetry: on room air snw is 98 %. Interpretation: normal. Awaiting: Pt remains in US dept for US of right lower ext. 18:18 Response to treatment: the patient's symptoms have mildly improved after treatment. snw Physician consultation: Dr Lo was called at 17:50, was contacted at 18:00, regarding consult, Dr. Lo, vascular surg at [facility], kindly consulted and confirms that no surgical intervention needed for this DVT, + anti coagulants and compression and elevation will be most beneficial. Will admit pt to [facility] at this time.. 19:31 Physician consultation: Miles Christianson was called at 19:32, was contacted at 19:32, snw regarding admission, to the telemetry unit. 12/24 15:22 Order name: Basic Metabolic Panel; Complete Time: 16:45 snw 12/24 15:22 Order name: CBC with Diff; Complete Time: 16:16 snw 12/24 15:22 Order name: LFT's; Complete Time: 16:45 snw 12/24 15:22 Order name: Magnesium; Complete Time: 16:45 snw 12/24 15:22 Order name: NT PRO-BNP; Complete Time: 16:45 snw 12/24 15:22 Order name: PT-INR; Complete Time: 16:16 snw 12/24 14:23 Order name: US Extremity Venous Unilateral Ltd; Complete Time: 15:58 snw 12/24 15:22 Order name: Troponin (emerg Dept Use Only); Complete Time: 16:45 snw 12/24 15:22 Order name: EKG; Complete Time: 15:22 snw 12/24 15:22 Order name: CT Chest For PE Angio; Complete Time: 17:18 snw 12/24 15:22 Order name: Cardiac monitoring; Complete Time: 15:59 snw 12/24 15:22 Order name: EKG - Nurse/Tech; Complete Time: 16:23 snw 12/24 15:22 Order name: IV Saline Lock; Complete Time: 15:59 snw 12/24 15:22 Order name: Labs collected and sent; Complete Time: 15:59 snw 12/24 15:22 Order name: O2 Per Protocol; Complete Time: 16:01 snw 12/24 15:22 Order name: O2 Sat Monitoring; Complete Time: 16:01 snw EC:15 Rate is 89 beats/min. Rhythm is regular. QRS [place] is Normal. [place] interval is normal. QRS snw interval is normal. QT interval is normal. No Q waves. T waves are Normal. No ST changes noted. Clinical impression: Normal ECG. Administered Medications: 16:27 Drug: fentaNYL (PF) 25 mcg {Note: rass1.} Route: IVP; Site: right antecubital; sv 17:00 Follow up: Response: No adverse reaction; Marked relief of symptoms; RASS: Alert and sv Calm (0) 16:27 Drug: Lovenox 80 mg Route: Sub-Q; Site: right lower abdomen; sv 17:00 Follow up: Response: No adverse reaction sv 19:38 Drug: [place] 10 mg-325 mg 1 tabs {Note: Rass score 0.} Route: PO; jb4 20:30 Follow up: Response: No adverse reaction; Pain is decreased; RASS: Alert and Calm (0) jb4 20:50 Drug: Albuterol 2.5 mg Route: Inhalation; jb4 21:06 Follow up: Response: No adverse reaction; Marked relief of symptoms jb4 Disposition: 12/25/19 18:26 Hospitalization ordered by Miles Christianson for Inpatient Admission. Preliminary diagnosis is Occlusive DVT to right popliteal and right posterior tibial veins. - Bed requested for Telemetry/MedSurg (Inpatient). - Status is Inpatient Admission. jb4 - Condition is Stable. - Problem is new. - Symptoms are unchanged. Addendum: 12/27/2019 18:44 Co-signature as Attending Physician, Rickie Enamorado MD I agree with the assessment and k dr plan of care. Signatures: Dispatcher [employer] EDZuri Espinosa RN RN sv Woody, Diana, RN RN dw Rittger, Kevin, MD MD kdr Waters, Shelly, REGULATORY PROCESS MANAGER-C REGULATORY PROCESS MANAGER-Papow Bel Sheehan RN RN ss Bryson, James, STEVE RN jb4 Corrections: (The following items were deleted from the chart) 12/24 19:32 18:26 Hospitalization Ordered by Prince Marcus BELCHER for Inpatient Admission. Preliminary snw diagnosis is Occlusive DVT to right popliteal and right posterior tibial veins. Bed requested for Telemetry/MedSurg (Inpatient). Status is Inpatient Admission. Condition is Stable. Problem is new. Symptoms are unchanged. snw 20:25 19:32 12/25/2019 18:26 Hospitalization Ordered by Miles Christianson for Inpatient dw Admission. Preliminary diagnosis is Occlusive DVT to right popliteal and right posterior tibial veins. Bed requested for Telemetry/MedSurg (Inpatient). Status is Inpatient Admission. Condition is Stable. Problem is new. Symptoms are unchanged. snw 21:40 20:25 12/25/2019 18:26 Hospitalization Ordered by Miles Christianson for Inpatient jb4 Admission. Preliminary diagnosis is Occlusive DVT to right popliteal and right posterior tibial veins. Bed requested for Telemetry/MedSurg (Inpatient). Status is Inpatient Admission. Condition is Stable. Problem is new. Symptoms are unchanged. dw
[2019-12-25] MEDS ORDERED: HYDROCODONE/APAP 10/325 TAB ONE (19:48)
--- NOTE | 2019-12-25 20:45 | P.HP ---
Certification for Inpatient Patient admitted to: Observation With expected LOS: <2 Midnights Practitioner: I am a practitioner with admitting privileges, knowledge of patient current condition, hospital course, and medical plan of care. Services: Services provided to patient in accordance with Admission requirements found in Title 42 Section 412.3 of the Code of Federal Regulations Patient History Date of Service: 12/25/19 Reason for admission: Right leg swelling History of Present Illness: 49-year-old woman with a history of COPD, recently hospitalized about 2 weeks ago for COPD exacerbation and discharged with prednisone, Zithromax and Theophylline in addition to her usual home inhalers presented emergency department with a complaint of right leg swelling of 4 days duration. Patient reports associated pain. She denied any fever. She stated her respiratory condition has been stable since discharge. Venous Doppler of the lower extremities done in the ED reported right popliteal and posterior tibial vein occlusive thrombosis. CTA thorax is negative for pulmonary embolus. Patient is admitted for further management. Allergies No Known Drug Allergies Allergy (Verified 12/12/19 03:53) Unknown No Known Allergies Allergy (Uncoded 12/12/19 03:53) Unknown Home Medications: Buspirone HCl [Buspar] 10 mg PO BID 10/10/19 Venlafaxine HCl 75 mg PO BEDTIME 10/10/19 Albuterol Neb [Proventil 0.083% Neb Soln] 2.5 mg IH TID PRN #90 amp 12/14/19 Albuterol Sulfate [Proair Hfa] 2 puff IH TID PRN #1 12/14/19 Azithromycin Tab [Zithromax*] 250 mg PO DAILY #14 tab 12/14/19 Fluticasone/Umeclidin/Vilanter [Trelegy Ellipta 100-62.5-25] 1 each IH DAILY #1 blst.w.dev 12/14/19 Theophylline [Jack-Dur*] 200 mg PO BID #120 tab 12/14/19 predniSONE [Prednisone*] 20 mg PO SEECOM #15 tab 12/14/19 - Past Medical/Surgical History Diabetic: No -: COPD -: ANXIETY -: HYSTERECTOMY Psychosocial/ Personal History: Patient lives at home with her children is currently unemployed - Family History Mother -: Lung disease, Other (see notes) Notes: OXYGEN DEPENDENT, SMOKER. depresssion Father -: Lung disease, GI disease, Kidney disease Notes: SMOKER - Social History Alcohol use: No CD- Drugs: No Caffeine use: Yes Review of Systems Other: Except as documented, all other systems reviewed and negative. Physical Examination - Physical Exam General: Alert, In no apparent distress, Oriented x3 HEENT: Atraumatic, Mucous membr. moist/pink, EOMI, Sclerae nonicteric Neck: Supple, JVD not distended Respiratory: Clear to auscultation bilaterally, Diminished Cardiovascular: Regular rate/rhythm, Normal S1 S2, Edema (Right lower extremity) Capillary refill: <2 Seconds Gastrointestinal: Normal bowel sounds, Soft and benign, Non-distended, No tenderness Musculoskeletal: Swelling (Right lower extremity), Tenderness (Right lower extremity) Integumentary: No rashes, No erythema Neurological: Normal speech, Normal strength at 5/5 x4 extr, Cranial nerves 3-12 intact - Studies Laboratory Data (last 24 hrs) 12/25/19 16:00: PT 11.5, INR 0.97 12/25/19 16:00: WBC 7.7 D, Hgb 13.0, Hct 38.6, Plt Count 169 12/25/19 16:00: Sodium 142, Potassium 4.0, BUN 13, Creatinine 1.01, Glucose 95, Magnesium 2.1, Total Bilirubin 0.3, AST 13 L, ALT 11 L, Alkaline Phosphatase 79 Assessment and Plan - Problems (Diagnosis) (1) Acute deep vein thrombosis (DVT) of lower extremity Current Visit: Yes Status: Acute (2) COPD (chronic obstructive pulmonary disease) Current Visit: Yes Status: Acute - Plan Place patient under observation. Patient given full-dose Lovenox in the ED. Will continue with Apixaban DVT protocol. Pain management with [place] and IV morphine. Nebulizers for COPD. Monitor CBC. Bedrest for 1st 24 hrs. - Advance Directives Does patient have a Living Will: No Does patient have a Durable POA for Healthcare: No
[2019-12-25] MEDS ORDERED: ALBUTEROL 2.5 MG/3 ML NEB SOL ONE (21:01)
[2019-12-25] MEDS ORDERED: MORPHINE 2 MG/ML SYR IV PRN (21:37)
[2019-12-25] MEDS ORDERED: ONDANSETRON 4 MG/2 ML VIAL IV PRN (21:37)
[2019-12-25] MEDS: THEOPHYLLINE SR 100 MG TAB PO SCH (21:37)
[2019-12-25 22:09] VITALS: BMI 32.0
[2019-12-25] MEDS: APIXABAN 5 MG TABLET PO SCH (22:52)
[2019-12-25 23:16] LABS: Urine Appearance CLEAR; Urine Bilirubin NEGATIVE (NEG); Urine Blood TRACE (NEG); Urine Color YELLOW; Urine Glucose NEGATIVE (NEG); Urine Protein NEGATIVE (NEG); Urine Specific Gravity >=1.030 (1.005-1.030); Urine Urobilinogen 0.2 mg/dL (0.2-1.0)
[2019-12-25 23:45] LABS: Urine Microscopic Reflex ORDER UMIC
[2019-12-25 23:46] LABS: Calcium Oxalate Crystals- Ur FEW (NONE SEEN); Urine Bacteria 20-50 /HPF (<20); Urine Culture Reflex Order REFLEXED; Urine Mucus 1+ /HPF (NONE SEEN); Urine Trichomonas PRESENT (NONE SEEN)
[2019-12-26] MEDS: IPRATROPIUM BROM 0.5MG/2.5ML NEB SCH ×3 (01:56→13:50)
[2019-12-26] MEDS: HYDROCODONE/APAP 5/325 MG TAB PO PRN ×2 (04:59→11:26)
[2019-12-26 05:59] LABS: Absolute Lymphocytes (CBC) 2.1 K/uL (0.7-4.9); Basophils % 0.7 % (0-1.3); Hematocrit 37.4 % (36.0-45.0); Lymphocytes % 37.1 % (15.3-44.8); RBC Red Blood Cell Count 3.94 M/uL (3.86-4.86)
[2019-12-26 06:14] LABS: Magnesium 2.4 mg/dL (1.8-2.4); Phosphorus 3.5 mg/dL (2.5-4.9); Potassium 4.3 mmol/L (3.5-5.1)
[2019-12-26] MEDS: ALBUTEROL 2.5 MG/3 ML NEB SOL NEB PRN ×2 (07:50→13:50)
[2019-12-26] MEDS: APIXABAN 5 MG TABLET PO SCH (08:03)
[2019-12-26] MEDS ORDERED: HOME MED 1 EA UNK (Fluticasone/Umeclidin/Vilanter [Trelegy Ellipta 100-62.5-25] 1 EACH) IH SCH (09:00)
[2019-12-26] MEDS: THEOPHYLLINE SR 100 MG TAB PO SCH (11:23)
[2019-12-26] MEDS ORDERED: HYDROCORTISONE SUC 100 MG INJ IV ONE (11:42)
[2019-12-26] MEDS ORDERED: ACETAMIN/CAFFEINE/BUTALB TAB PO ONE (12:13)
[2019-12-26] MEDS ORDERED: ACETAMIN/CAFFEINE/BUTALB TAB PO PRN (12:13)
[2019-12-26 14:09] VITALS: O2SAT 96
--- NOTE | 2019-12-26 15:02 | P.DS ---
Discharge Date: 12/26/19 Disposition: ROUTINE DISCHARGE Discharge Condition: GOOD Reason for Admission: Right leg swelling Brief History of Present Illness: Patient is a 49-year-old female who came into the hospital with a DVT of the lower extremity. She was admitted to the hospital for further evaluation. Patient was given full dose anticoagulation in the emergency room and will be evaluated overnight. Anticipate discharge in the morning. Hospital Course: Patient did well during hospital stay. The patient is clinically doing much better. At this time, patient is stable for discharge home with outpatient follow up. We will continue anticoagulation and follow up with PCP. Return to the emergency room if symptoms worsen. At this time, patient is stable for discharge home with outpatient follow up. Vital Signs/Physical Exam: Temp Pulse Resp BP Pulse Ox 99.1 F 82 16 103/51 L 99 12/26/19 12:00 12/26/19 12:00 12/26/19 12:26 12/26/19 12:00 12/26/19 12:26 General: Alert, In no apparent distress, Oriented x3 Laboratory Data at Discharge: WBC 5.6 K/uL (4.3-10.9) D 12/26/19 05:08 Hgb 12.7 g/dL (12.0-15.0) 12/26/19 05:08 Hct 37.4 % (36.0-45.0) 12/26/19 05:08 Plt Count 160 K/uL (152-406) 12/26/19 05:08 PT 11.5 SECONDS (9.5-12.5) 12/25/19 16:00 INR 0.97 12/25/19 16:00 Sodium 143 mmol/L (136-145) 12/26/19 05:08 Potassium 4.3 mmol/L (3.5-5.1) 12/26/19 05:08 BUN 11 mg/dL (7-18) 12/26/19 05:08 Creatinine 0.99 mg/dL (0.55-1.3) 12/26/19 05:08 Glucose 87 mg/dL (74-106) 12/26/19 05:08 Phosphorus 3.5 mg/dL (2.5-4.9) 12/26/19 05:08 Magnesium 2.4 mg/dL (1.8-2.4) 12/26/19 05:08 Total Bilirubin 0.3 mg/dL (0.2-1.0) 12/25/19 16:00 AST 13 U/L (15-37) L 12/25/19 16:00 ALT 11 U/L (12-78) L 12/25/19 16:00 Alkaline Phosphatase 79 U/L (45-117) 12/25/19 16:00 Home Medications: Venlafaxine HCl 75 mg PO BEDTIME 10/10/19 Albuterol Neb [Proventil 0.083% Neb Soln] 2.5 mg IH TID PRN #90 amp 12/14/19 Albuterol Sulfate [Proair Hfa] 2 puff IH TID PRN #1 12/14/19 Azithromycin Tab [Zithromax*] 250 mg PO DAILY #14 tab 12/14/19 Fluticasone/Umeclidin/Vilanter [Trelegy Ellipta 100-62.5-25] 1 each IH DAILY #1 blst.w.dev 12/14/19 Theophylline [Jack-Dur*] 200 mg PO BID #120 tab 12/14/19 Apixaban [Eliquis] 5 mg PO BID #60 tablet 12/26/19 Hydrocodone 5/APAP 325 [[place] 5/325*] 1 tab PO Q6H PRN #30 tab 12/26/19 New Medications: Apixaban [Eliquis] 5 mg PO BID #60 tablet Hydrocodone 5/APAP 325 [[place] 5/325*] 1 tab PO Q6H PRN #30 tab PRN Reason: Pain Scale 5-7 (Moderate) Patient Discharge Instructions: OK TO DC IV AND DC HOME. FOLLOW-UP WITH PRIMARY CARE PROVIDER IN 1-2 WEEKS. RETURN TO THE ER IF symptoms worsen. CALL or TEXT DR. SOLIS AT [phone] IF ANY QUESTIONS REGARDING HOSPITAL STAY. PLEASE CALL THE FLOOR AT [phone] IF ANY MEDICATION OR NURSING QUESTIONS. Diet: AHA Activity: Fall precautions Followup: OOTOOT [Primary Care Provider] - Time spent managing pt's care (in minutes): 30
[2019-12-26 17:54] VITALS: BP 105/52; TEMP 97.3
== END 2019-12-26 17:15 | disposition home or self-care (01) ==
LOC: ER 13:40 → ERHOLD 20:26 → 2ND 21:30
PROVIDERS: ADMIT Internal Medicine; ATTEND Hospitalist
DX: I82.431 Acute embolism and thrombosis of right popliteal vein (principal); I82.441 Acute embolism and thrombosis of right tibial vein; J44.9 Chronic obstructive pulmonary disease, unspecified; F41.9 Anxiety disorder, unspecified; Z20.828 Contact with and (suspected) exposure to other viral communicable diseases
CPT/HCPCS: 36415; 71275; 80048; 80076; 81003; 81015; 83735; 83880; 84100; 84484; 85025; 85610; 87086; 87088; 93005; 93971; 94640; 96372; 96374; 99285; G0378; J1720; J3010; Q9967; U0002

== ENCOUNTER 2020-01-02 19:42 | Emergency (ER) | payer OTHER ==
--- OUTSIDE RECORDS SUMMARY | 2020-01-02 19:44 | XMS REPORT | Continuity of Care Document ---
:1970 Author Organization [facility] t Address [address] [place] [address] Care Team Providers Name Role Phone Unavailable [...] - XR CHEST 2 V 2019-12-08 11:11:00 [facility] LAKEName: AMADA RIVERA : 1970 Sex: F FAX: Jn Barton MD [phone] [place]: [address]: REG Name: AMADA RIVERA [facility] [place] : 1970 Age/S: 49/F [address] [place], [place] [address] Unit #: [id number] Loc: [place] [address] Phys: Jn Barrios MD Acct: [id number] Dis Date: Status: REG CLI PHONE #: [phone] Exam Date: 12/08/2019 1111 FAX #: [phone] Reason: R06.02, SHORTNESS OF BREATH. EXAMS: CPT CODE: [id number] XR CHEST 2 V 83907 CLINICAL HISTORY: R06.02, SHORTNESS OF BREATH. COMPARISON: [...]
[2020-01-02] MEDS ORDERED: METOCLOPRAMIDE 10 MG/2mL INJ ONE (20:27)
[2020-01-02] MEDS ORDERED: NA CHLORIDE 0.9% 500 ML ONE (20:28)
[2020-01-02] MEDS ORDERED: DIPHENHYDRAMINE 50 MG/ML VIAL ONE (20:28)
--- NOTE | 2020-01-02 20:37 | RAD REPORT ---
EXAM DESCRIPTION: [place] Single View01/02/2020 8:26 pm CLINICAL HISTORY: Chest pain COMPARISON: November 2019 FINDINGS: Lungs are hyperaerated. The lungs appear clear of acute infiltrate. The heart is normal size IMPRESSION: No acute abnormalities displayed
[2020-01-02 20:40] LABS: Absolute Lymphocytes (CBC) 1.7 K/uL (0.7-4.9); Basophils % 1.2 % (0-1.3); Hematocrit 38.1 % (36.0-45.0); Lymphocytes % 39.5 % (15.3-44.8); MPV 7.6 fL (7.6-11.3); RBC Red Blood Cell Count 4.06 M/uL (3.86-4.86)
[2020-01-02 20:43] LABS: Protime INR 1.16
--- NOTE | 2020-01-02 20:57 | RAD REPORT ---
EXAM DESCRIPTION: CT - Head Brain Wo Cont - 01/02/2020 8:39 pm CLINICAL HISTORY: Headache COMPARISON: None. TECHNIQUE: Computed axial tomography of the head was obtained. IV contrast was not requested. All CT scans are performed using dose optimization technique as appropriate and may include automated exposure control or mA/KV adjustment according to patient size. FINDINGS: An intracranial bleed is not seen . The ventricles are normal in caliber. No extra-axial fluid collection is noted. Fluid within the sinuses/ mastoids is not seen. IMPRESSION: No acute intracranial abnormality is seen. If patient's symptoms persist MRI of the bra in would be recommended.
--- NOTE | 2020-01-02 21:05 | RAD REPORT ---
EXAM DESCRIPTION: CT - Chest For Pe Angio - 01/02/2020 8:44 pm CLINICAL HISTORY: Chest pain COMPARISON: December 25, 2019 TECHNIQUE: Dynamically enhanced axial 3 mm thick images of the chest were obtained during administra tion of <100> mL Isovue 370 IV contrast. Coronal and oblique reconstruction images were generated and reviewed. Exam utilizes a protocol for optimal evaluation of pulmonary arterial tree. Maximum intensity projections 3D imaging was utilized All CT scans are performed using dose optimization technique as appropriate and may include automated exposure control or mA/KV adjustment according to patient size. FINDINGS: A pulmonary embolus is not seen. A thoracic aortic aneurysm is not noted. A pleural effusion is not seen. A pericardial effusion is not seen. A lung consolidation is not present. IMPRESSION: Negative for a pulmonary embolism.
[2020-01-02 21:12] LABS: ALT/SGPT 14 U/L (12-78); AST/SGOT 17 U/L (15-37); Albumin 3.2 g/dL (3.4-5.0); Alkaline Phosphatase 77 U/L (45-117); BUN Blood Urea Nitrogen 10 mg/dL (7-18); Bicarbonate 29 mmol/L (21-32); Bilirubin Direct < 0.1 mg/dL (0-0.2); Bilirubin Total 0.2 mg/dL (0.2-1.0); Glucose Level 82 mg/dL (74-106); Magnesium 2.3 mg/dL (1.8-2.4); NT PRO-BNP 89 pg/mL (<125); Protein, Total 6.7 g/dL (6.4-8.2); Sodium Level 144 mmol/L (136-145); Troponin (Emerg Dept Use Only) < 0.02 ng/mL (0.0-0.045)
[2020-01-02 22:05] LABS: Urine Blood TRACE (NEG); Urine Glucose NEGATIVE (NEG); Urine Protein NEGATIVE (NEG)
[2020-01-02] MEDS ORDERED: MORPHINE 4 MG/ML SYR ONE (22:12)
[2020-01-02 22:17] LABS: Creatine Phosphokinase 69 U/L (26-192)
--- NOTE | 2020-01-03 00:23 | ER ---
Nurse's Notes [facility] Name: Roxanne Duran Age: 49 yrs Sex: Female : 1970 Arrival Date: 01/02/2020 Time: 19:43 Bed 19 Private MD: Colton Sarabia Diagnosis: Chest pain, unspecified;DVT-Right Lower Extremity Presentation: 01/01 19:46 Chief complaint: Patient states: "I have a blood clot in my right leg and now have jd3 developed worsening leg pain, chest pain. they said if that happens to come back.". Coronavirus screen: At this time, the client does not indicate any symptoms associated with coronavirus-19. Ebola Screen: Patient negative for fever greater than or equal to 101.5 degrees Fahrenheit, and additional compatible Ebola Virus Disease symptoms. Initial Sepsis Screen: Does the patient meet any 2 criteria? No. Patient's initial sepsis screen is negative. Does the patient have a suspected source of infection? No. Patient's initial sepsis screen is negative. Risk Assessment: Do you want to hurt yourself or someone else? Patient reports no desire to harm self or others. Onset of symptoms was December 27, 2019. 19:46 Method Of Arrival: Wheelchair jd3 19:46 Acuity: SHYLA 3 jd3 Triage Assessment: 23:43 Pain: Pain began gradually, Also complains of no other associated symptoms. 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 - Social history:: Smoking status: Patient/guardian denies using tobacco, the patient reports quitting approximately 2 years ago. Screenin:39 Abuse screen: Denies threats or abuse. Denies injuries from another. Nutritional lp1 screening: No deficits noted. Tuberculosis screening: No symptoms or risk factors identified. Fall Risk None identified. Assessment: 20:30 General: Appears in no apparent distress. Behavior is calm, cooperative, appropriate lp1 for age. Pain: Complains of pain in head and right leg Pain currently is 9 out of 10 on a pain scale. Quality of pain is described as pressure. Neuro: Level of Consciousness is awake, alert, obeys commands, Oriented to person, place, time, situation, Reports headache frontal area, photophobia since 2 days ago. Cardiovascular: Patient's skin is warm and dry. Respiratory: Airway is patent Respiratory effort is even, unlabored, Breath sounds are clear bilaterally. GI: Abdomen is non-distended. : No signs and/or symptoms were reported regarding the genitourinary system. EENT: No signs and/or symptoms were reported regarding the EENT system. Derm: Skin is pink, warm \\T\\ dry. redness noted to lower right ankle; hx of DVT. Musculoskeletal: Circulation, motion, and sensation intact. Swelling present in right ankle. 21:50 Reassessment: Provider at bedside to discuss results with patient. lp1 22:00 Reassessment: Patient reports minimal headache relief, pain to right ankle 8/10 on pain lp1 scale; Provider notified, verbal order for Morphine 4mg IV now. 23:00 Reassessment: Patient appears in no apparent distress at this time. Patient resting, lp1 eyes closed, respirations unlabored. 23:42 Reassessment: Patient appears in no apparent distress at this time. Patient reports lp1 able to sleep a bit and get some rest; relief from headache, 2/10 at this time. 01/02 00:34 Reassessment: Patient waiting for ride to arrive for discharge home. lp1 Vital Signs: 01/01 19:48 BP 94 / 54; Pulse 87; Resp 19 S; Temp 97.5(TE); Pulse Ox 98% on R/A; Weight 85.28 kg jd3 (R); Height 5 ft. 4 in. (162.56 cm) (R); Pain 9/10; 20:15 BP 95 / 61; Pulse 81; Resp 19; Pulse Ox 100% on R/A; lp1 21:40 BP 105 / 66; Pulse 82; Resp 22; Pulse Ox 98% on R/A; ca1 22:28 BP 120 / 62; Pulse 91; Resp 20; Pulse Ox 98% on R/A; lp1 01/02 00:15 BP 107 / 58; Pulse 85; Resp 20; Pulse Ox 95% on R/A; lp1 01/01 19:48 Body Mass Index 32.27 (85.28 kg, 162.56 cm) jd3 ED Course: 01/01 19:43 Patient arrived in ED. am2 19:43 Colton Sarabia is Private Physician. am2 19:47 Triage completed. jd3 19:49 Arm band placed on. jd3 19:57 Benny Franco MD is Attending Physician. mh7 20:10 Halle Gunderson, RN is Primary Nurse. lp1 20:26 XRAY Chest (1 view) In Process Unspecified. EDMS 20:30 Patient has correct armband on for positive identification. Bed in low position. Call lp1 light in reach. measurement superintendent on. Pulse ox on. NIBP on. 20:30 Inserted saline lock: 20 gauge in right antecubital area, using aseptic technique. lp1 Blood collected. 20:30 Initial lab(s) drawn, by me, sent to lab. lp1 20:39 CT Head Brain wo Cont In Process Unspecified. EDMS 20:45 CT Chest For PE Angio In Process Unspecified. EDMS 21:50 No provider procedures requiring assistance completed. lp1 23:40 Repeat lab(s) drawn. by me, sent to lab. lp1 01/02 00:32 IV discontinued, No redness/swelling at site. Pressure dressing applied. lp1 Administered Medications: 01/01 20:30 Drug: NS 0.9% 500 ml Route: IV; Rate: bolus; Site: right antecubital; lp1 21:30 Follow up: IV Status: Completed infusion; IV Intake: 500ml lp1 20:30 Drug: Reglan 10 mg Route: IVP; Site: right antecubital; lp1 21:30 Follow up: Response: No adverse reaction; No change in condition lp1 20:30 Drug: Benadryl 25 mg Route: IVP; Site: right antecubital; lp1 21:30 Follow up: Response: No change in condition lp1 22:05 Drug: morphine 4 mg {Note: VO per Dr. Franco.} Route: IVP; Site: right antecubital; lp1 23:30 Follow up: Response: Pain is decreased lp1 Intake: 21:30 IV: 500ml; Total: 500ml. lp1 Outcome: 01/02 00:22 Discharge ordered by . [facility] 00:32 Discharged to home ambulatory. lp1 00:32 Condition: good 00:32 Discharge instructions given to patient, Instructed on discharge instructions, follow up and referral plans. medication usage, Demonstrated understanding of instructions, follow-up care, medications, Prescriptions given X 1. 01:02 Patient left the ED. lp1 Signatures: Dispatcher [employer] EDMS Halle Gunderson RN RN lp1 Genevieve Deng am2 Silvestre Rodriguez RN RN jd3 Suki Benitez RN RN ca1 Benny Franco MD MD 7 Corrections: (The following items were deleted from the chart) 01/01 19:51 19:48 Resp 19bpm; Spontaneous; Temp 97.5F Temporal; 85.28 kg Reported; Height 5 ft. 4 jd3 in. Reported; BMI: 32.2; Pain 10/28; jd3 20:39 20:30 Neuro: Level of Consciousness is awake, alert, obeys commands, Oriented to lp1 person, place, time, situation, lp1
--- NOTE | 2020-01-03 00:23 | EDPHYS ---
Physician Documentation [facility] Name: Roxanne Duran Age: 49 yrs Sex: Female : 1970 Arrival Date: 01/02/2020 Time: 19:43 Bed 19 Private MD: Colton Sarabia ED Physician Benny Franco HPI: 01/01 20:25 This 49 yrs old Female presents to ER via Wheelchair with complaints of Leg mh7 Swelling, Headache, Feet Swelling - pain. 20:26 The patient or guardian reports chest pain that is located primarily in the anterior mh7 chest wall, bilaterally. Onset: 2 day(s) ago. The pain does not radiate. Associated signs and symptoms: Pertinent positives: cough, headache, lower extremity pain, lower extremity swelling, shortness of breath, Pertinent negatives: abdominal pain, diaphoresis, dizziness, lightheadedness, nausea, near syncope, palpitations, recent travel, syncope, vomiting. The chest pain is described as tightness. Duration: The patient or guardian reports multiple episodes, that are intermittent, that wax and wane, with no pattern. Modifying factors: The symptoms are alleviated by nothing. the symptoms are aggravated by nothing. Severity of pain: At its worst the pain was moderate 2 day(s) ago, in the emergency department the pain has improved moderately. The patient has been recently been admitted at [facility], was discharged last week. Patient being treated for DVT of right lower extremity and wad discharged from hospital last week on Eliquis. She states that she has been having chest tightness and SOB intermittently for the past two days. She also complains of intermittent frontal headache for the past week. She denies any nausea, vomiting, abdominal pain, bleeding, dizziness, numbness/tingling, or weakness.. 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 - Social history:: Smoking status: Patient/guardian denies using tobacco, the patient reports quitting approximately 2 years ago. ROS: 20:26 Constitutional: Negative for fever, chills, and weight loss, Eyes: Negative for injury, mh7 pain, redness, and discharge, ENT: Negative for injury, pain, and discharge, Neck: Negative for injury, pain, and swelling, Abdomen/GI: Negative for abdominal pain, nausea, vomiting, diarrhea, and constipation, Back: Negative for injury and pain, : Negative for injury, bleeding, discharge, and swelling, Skin: Negative for injury, rash, and discoloration, Psych: Negative for depression, anxiety, suicide ideation, homicidal ideation, and hallucinations, Allergy/Immunology: Negative for hives, rash, and allergies, Endocrine: Negative for neck swelling, polydipsia, polyuria, polyphagia, and marked weight changes, Hematologic/Lymphatic: Negative for swollen nodes, abnormal bleeding, and unusual bruising. Exam: 20:26 Constitutional: This is a well developed, well nourished patient who is awake, alert, mh7 and in no acute distress. Head/Face: Normocephalic, atraumatic. Eyes: Pupils equal round and reactive to light, extra-ocular motions intact. Lids and lashes normal. Conjunctiva and sclera are non-icteric and not injected. Cornea within normal limits. Periorbital areas with no swelling, redness, or edema. Neck: Trachea midline, no thyromegaly or masses palpated, and no cervical lymphadenopathy. Supple, full range of motion without nuchal rigidity, or vertebral point tenderness. No Meningismus. Chest/axilla: Normal chest wall appearance and motion. Nontender with no deformity. No lesions are appreciated. Cardiovascular: Regular rate and rhythm with a normal S1 and S2. No gallops, murmurs, or rubs. Normal PMI, no JVD. No pulse deficits. 20:26 Abdomen/GI: Soft, non-tender, with normal bowel sounds. No distension or tympany. No guarding or rebound. No evidence of tenderness throughout. Back: No spinal tenderness. No costovertebral tenderness. Full range of motion. 20:26 Neuro: Awake and alert, GCS 15, oriented to person, place, time, and situation. Cranial nerves II-XII grossly intact. Motor strength 5/5 in all extremities. Sensory grossly intact. Cerebellar exam normal. Normal gait. Psych: Awake, alert, with orientation to person, place and time. Behavior, mood, and affect are within normal limits. 20:26 Constitutional: The patient appears 20:26 Respiratory: the patient does not display signs of respiratory distress, Respirations: normal, Breath sounds: rhonchi, that are mild, are scattered, Respiratory rate: 18 20:26 Musculoskeletal/extremity: Extremities: noted in the right leg: erythema, swelling, tenderness, ROM: intact in all extremities, Circulation is intact in all extremities. Pulses: are normal with no appreciated deficits, Sensation intact. Compartment Syndrome exam of affected extremity: is normal. no numbness, no tingling, no sensation deficit, no palor, no weak pulses, Joints: All joints appear normal with full range of motion. Weight bearing: able to fully bear weight, without difficulty, Tendon exam: specific tendon testing normal through active and passive range of motion DVT Exam: pain, that is mild, of the right leg, swelling, that is mild, of the right leg, tenderness, that is mild, of the right leg, erythema, that is mild, of the right leg, Calves: are tender, on right, are not equal in size: right is larger than left. 20:26 Skin: Mild erythema,tenderness right lower extremity. 22:03 ECG was reviewed by the Attending Physician. [facility] Vital Signs: 19:48 BP 94 / 54; Pulse 87; Resp 19 S; Temp 97.5(TE); Pulse Ox 98% on R/A; Weight 85.28 kg jd3 (R); Height 5 ft. 4 in. (162.56 cm) (R); Pain 9/10; 20:15 BP 95 / 61; Pulse 81; Resp 19; Pulse Ox 100% on R/A; lp1 21:40 BP 105 / 66; Pulse 82; Resp 22; Pulse Ox 98% on R/A; ca1 22:28 BP 120 / 62; Pulse 91; Resp 20; Pulse Ox 98% on R/A; lp1 01/02 00:15 BP 107 / 58; Pulse 85; Resp 20; Pulse Ox 95% on R/A; lp1 01/01 19:48 Body Mass Index 32.27 (85.28 kg, 162.56 cm) jd3 MDM: 01/01 20:[address] [facility] 01/02 00:20 Differential diagnosis: acute myocardial infarction, acute pericarditis, anxiety, chest mh7 wall pain, costochondritis, pericarditis, pleurisy, pneumonia, pneumothorax, pulmonary embolus. HEART Score: History: Slightly Suspicious (0), ECG: Normal (0), Age: > 45 and < 65 years (1), Risk Factors: No Risk Factors Known (0), Troponin: < or = 1 x Normal Limit (0), Total Score = 1. Data reviewed: vital signs, nurses notes, old medical records, lab test result(s), cardiac enzymes, CBC, electrolytes, urinalysis, EKG, radiologic studies, CT scan, plain films. Data interpreted: Pulse oximetry: on room air is 98 %. Interpretation: normal. Counseling: I had a detailed discussion with the patient and/or guardian regarding: the historical points, exam findings, and any diagnostic results supporting the discharge/admit diagnosis, lab results, radiology results, the need for outpatient follow up, to return to the emergency department if symptoms worsen or persist or if there are any questions or concerns that arise at home. 01/01 20:04 Order name: Basic Metabolic Panel; Complete Time: 22:34 7 01/01 20:04 Order name: CBC with Diff; Complete Time: 20:59 7 01/01 20:04 Order name: LFT's; Complete Time: 22:34 7 01/01 20:04 Order name: Magnesium; Complete Time: 22:34 7 01/01 20:04 Order name: NT PRO-BNP; Complete Time: 22:34 7 01/01 20:04 Order name: PT-INR; Complete Time: 20:59 7 01/01 20:04 Order name: Troponin (emerg Dept Use Only); Complete Time: 22:34 7 01/01 20:04 Order name: XRAY Chest (1 view); Complete Time: 20:59 7 01/01 20:06 Order name: CT Head Brain wo Cont; Complete Time: 20:59 7 01/01 21:53 Order name: Urine Dipstick--Ancillary (enter results) tt3 01/01 21:54 Order name: Urine Dipstick-Ancillary; Complete Time: 22:34 EDMS 01/01 22:05 Order name: Creatine Phosphokinase; Complete Time: 22:34 EDMS 01/01 23:09 Order name: Troponin (emerg Dept Use Only) [facility] 01/01 20:04 Order name: EKG; Complete Time: 20:05 [facility] 01/01 20:04 Order name: Cardiac monitoring; Complete Time: 20:41 [facility] 01/01 20:04 Order name: EKG - Nurse/Tech; Complete Time: 20:27 [facility] 01/01 20:04 Order name: IV Saline Lock; Complete Time: 20:41 [facility] 01/01 20:04 Order name: Labs collected and sent; Complete Time: 20:41 [facility] 01/01 20:04 Order name: O2 Per Protocol; Complete Time: 20:41 [facility] 01/01 20:04 Order name: O2 Sat Monitoring; Complete Time: 20:41 [facility] 01/01 20:06 Order name: CT Chest For PE Angio; Complete Time: 21:21 [facility] 01/01 21:29 Order name: Urine Dipstick-Ancillary (obtain specimen); Complete Time: 23:23 mh7 EC/14 22:03 Rate is 82 beats/min. Rhythm is regular, Normal Sinus Rhythm. QRS [place] is Normal. [place] mh7 interval is normal. QRS interval is normal. QT interval is normal. No Q waves. T waves are Normal. No ST changes noted. Clinical impression: Normal ECG. Administered Medications: 20:30 Drug: NS 0.9% 500 ml Route: IV; Rate: bolus; Site: right antecubital; lp1 21:30 Follow up: IV Status: Completed infusion; IV Intake: 500ml lp1 20:30 Drug: Reglan 10 mg Route: IVP; Site: right antecubital; lp1 21:30 Follow up: Response: No adverse reaction; No change in condition lp1 20:30 Drug: Benadryl 25 mg Route: IVP; Site: right antecubital; lp1 21:30 Follow up: Response: No change in condition lp1 22:05 Drug: morphine 4 mg {Note: VO per Dr. Franco.} Route: IVP; Site: right antecubital; lp1 23:30 Follow up: Response: Pain is decreased lp1 Disposition: 01/03/20 00:22 Discharged to Home. Impression: Chest pain, unspecified, DVT-Right Lower Extremity. - Condition is Stable. - Discharge Instructions: Deep Vein Thrombosis, Nonspecific Chest Pain, [id number]. - Prescriptions for Tramadol 50 mg Oral Tablet - take 1 tablet by ORAL route every 8 hours as needed; 15 tablet. - Medication Reconciliation Form, Thank You Letter, Antibiotic Education, Prescription Opioid Use form. - Follow up: Private Physician; When: 1 - 2 days; Reason: Worsening of condition, Recheck today's complaints, Continuance of care, Re-evaluation by your physician. - Problem is an ongoing problem. - Symptoms have improved. Signatures: Dispatcher [employer] [facility] Halle Gunderson RN RN lp1 Silvestre Rodriguez RN RN jd3 Benny Franco MD MD mh7 Corrections: (The following items were deleted from the chart) 22:05 22:02 CREATINE PHOSPHOKINASE+C.LAB.BRZ ordered. [facility] 01/02 01:02 00:22 01/03/2020 00:22 Discharged to Home. Impression: Chest pain, unspecified; lp1 DVT-Right Lower Extremity. Condition is Stable. Forms are Medication Reconciliation Form, Thank You Letter, Antibiotic Education, Prescription Opioid Use. Follow up: Private Physician; When: 1 - 2 days; Reason: Worsening of condition, Recheck today's complaints, Continuance of care, Re-evaluation by your physician. Problem is an ongoing problem. Symptoms have improved. mh7
[2020-01-03 05:37] VITALS: TEMP 97.5
[2020-01-03 05:46] VITALS: BP 107/58; O2SAT 95
--- NOTE | 2020-01-03 07:41 | EKG ---
Test Date: 2020-01-02 Test Time: 20:14:12 Open Winder: ANDRA MEASUREMENT RESULTS: Intervals: Rate: 82 NJ: 144 QRSD: 78 QT: 382 QTc: 446 Gob[place]: P: 83 NJ: 144 QRS: 82 T: 76 INTERPRETIVE STATEMENTS: Normal sinus rhythm Normal ECG Compared to ECG 12/25/2019 16:13:26 No significant changes Electronically Signed On 01-03-20 07:40:29 WEB SEARCH EVALUATOR by Anthony Hyde
== END 2020-01-03 01:02 | disposition home or self-care (01) ==
LOC: ER 19:42
DX: R07.9 Chest pain, unspecified (principal); I82.401 Acute embolism and thrombosis of unspecified deep veins of right lower extremity; J44.9 Chronic obstructive pulmonary disease, unspecified; F41.9 Anxiety disorder, unspecified
CPT/HCPCS: 96361; 93005; 85025; 80048; 36415; 83735; 82550; 85610; 80076; 81003; 84484 ×2; 83880; 70450; 71275; 71045; 96375; 96374; 99284; Q9967; J2765; J1200; J7040

== ENCOUNTER 2020-03-04 17:08 | Emergency (ER) | payer OTHER ==
--- OUTSIDE RECORDS SUMMARY | 2020-03-04 17:11 | XMS REPORT | Continuity of Care Document ---
:1970 Author Organization [facility] t Address [address] [place] [address] Care Team Providers Name Role Phone Unavailable [...] XR CHEST 2 V 2019-12-08 11:11:00 [facility]: AMADA RIVERA : 1970 Sex: F FAX: Jn Barton MD [phone] [place]: [address] St: REG Name: AMADA RIVERA [facility] [place] : 1970 Age/S: 49/F [address] [place], [place] [address]vd Unit #: [id number] Loc: [place] [address] Phys: Jn Barrios MD Acct: [id number] Dis Date: Status: REG CLI PHONE #: [phone] Exam Date: 12/08/2019 1111 FAX #: [phone] Reason: R06.02, SHORTNESS OF BREATH. EXAMS: CPT CODE: [id number] XR CHEST 2 V 75944 CLINICAL HISTORY: R06.02, SHORTNESS OF BREATH. COMPARISON: [...]
[2020-03-04 18:01] LABS: Basophils % 0.5 % (0-1.3); Hematocrit 43.5 % (36.0-45.0); Lymphocytes % 46.6 % (15.3-44.8); MPV 8.1 fL (7.6-11.3); RBC Red Blood Cell Count 4.65 M/uL (3.86-4.86)
[2020-03-04 18:06] LABS: Protime INR 0.97
[2020-03-04 18:22] LABS: ALT/SGPT 8 U/L (12-78); AST/SGOT 19 U/L (15-37); Albumin 3.6 g/dL (3.4-5.0); Alkaline Phosphatase 90 U/L (45-117); BUN Blood Urea Nitrogen 7 mg/dL (7-18); Bicarbonate 28 mmol/L (21-32); Bilirubin Direct < 0.1 mg/dL (0-0.2); Bilirubin Total 0.2 mg/dL (0.2-1.0); Ferritin 161.4 ng/mL (8-388); Glucose Level 69 mg/dL (74-106); Lipase 96 U/L (73-393); Potassium 3.7 mmol/L (3.5-5.1); Protein, Total 7.3 g/dL (6.4-8.2); Sodium Level 143 mmol/L (136-145); Troponin (Emerg Dept Use Only) < 0.02 ng/mL (0.0-0.045)
--- NOTE | 2020-03-04 18:23 | RAD REPORT ---
EXAM DESCRIPTION: RAD - Chest Single View - 03/04/2020 6:17 pm CLINICAL HISTORY: CHEST PAIN Chest pain. COMPARISON: Chest Single View dated 01/02/2020; Chest Pa And Lat (2 Views) dated 12/14/2019; Chest S kamron View dated 12/12/2019; Chest Single View dated 12/08/2019 FINDINGS: Portable technique limits examination quality. The lungs are grossly clear. The heart is normal in size. No displaced fractures. IMPRESSION: No acute intrathoracic process suspected.
[2020-03-04 18:28] LABS: C-Reactive Protein < 2.90 mg/L (<3.00)
[2020-03-04 18:30] LABS: Urine Blood TRACE (NEG); Urine Glucose NEGATIVE (NEG); Urine Protein NEGATIVE (NEG)
--- NOTE | 2020-03-04 19:12 | RAD REPORT ---
EXAM DESCRIPTION: CT - Chest For Pe Angio - 03/04/2020 6:36 pm CLINICAL HISTORY: Chest pain. DYSPNEA COMPARISON: Chest For Pe Angio dated 01/02/2020 TECHNIQUE: CT angiogram of the pulmonary arteries was performed with MIP. All CT scans are performed using dose optimization technique as appropriate and may include automated exposure control or mA/KV adjustment according to patient size. FINDINGS: No evidence of pulmonary thromboembolism. No acute aortic finding demonstrated. Mild diffuse COPD is present with atelectasis in the lung bases. No significant pericardial or pleural fluid. No concerning bony finding. IMPRESSION: No evidence of pulmonary thromboembolism. Mild diffuse COPD is present.
[2020-03-04] MEDS ORDERED: NA CHLORIDE 0.9% 1,000 ML ONE (19:32)
--- NOTE | 2020-03-04 19:32 | EDPHYS ---
Physician Documentation [facility] Name: Roxanne Duran Age: 49 yrs Sex: Female : 1970 Arrival Date: 03/04/2020 Time: 17:17 Bed 8 Private MD: ED Physician Rickie Enamorado HPI: 03/04 19:15 This 49 yrs old Female presents to ER via EMS with complaints of Chest Pain > kb 29 y/o, Shortness Of Breath. 19:15 The patient has shortness of breath. The patient has not experienced similar symptoms kb in the past. The patient has not recently seen a physician. Historical: - Allergies: 17:20 No Known Drug Allergies; ll1 - PMHx: 17:20 Anxiety; COPD; ll1 - Immunization history:: Flu vaccine is not up to date. - Social history:: Smoking status: Patient/guardian denies using tobacco, the patient reports quitting approximately 1.5 years ago. ROS: 19:14 Constitutional: Negative for fever, chills, and weight loss, Abdomen/GI: Negative for kb abdominal pain, nausea, vomiting, diarrhea, and constipation, Back: Negative for injury and pain, MS/Extremity: Negative for injury and deformity, Skin: Negative for injury, rash, and discoloration, Neuro: Negative for headache, weakness, numbness, tingling, and seizure. 19:14 Cardiovascular: Positive for chest pain. 19:14 Respiratory: Positive for cough, dyspnea on exertion, shortness of breath. Exam: 19:15 Constitutional: This is a well developed, well nourished patient who is awake, alert, kb and in no acute distress. Head/Face: Normocephalic, atraumatic. Chest/axilla: Normal chest wall appearance and motion. Nontender with no deformity. No lesions are appreciated. Cardiovascular: Regular rate and rhythm with a normal S1 and S2. No gallops, murmurs, or rubs. Normal PMI, no JVD. No pulse deficits. Respiratory: Lungs have equal breath sounds bilaterally, clear to auscultation and percussion. No rales, rhonchi or wheezes noted. No increased work of breathing, no retractions or nasal flaring. Abdomen/GI: Soft, non-tender, with normal bowel sounds. No distension or tympany. No guarding or rebound. No evidence of tenderness throughout. Skin: Warm, dry with normal turgor. Normal color with no rashes, no lesions, and no evidence of cellulitis. MS/ Extremity: Pulses equal, no cyanosis. Neurovascular intact. Full, normal range of motion. Neuro: Awake and alert, GCS 15, oriented to person, place, time, and situation. Cranial nerves II-XII grossly intact. Motor strength 5/5 in all extremities. Sensory grossly intact. Cerebellar exam normal. Normal gait. Vital Signs: 17:18 BP 121 / 56; Pulse 76; Resp 20; Temp 98.1; Pulse Ox 98% on R/A; Weight 85.28 kg; Height ll1 5 ft. 4 in. (162.56 cm); Pain 6/10; 18:03 BP 103 / 66; Pulse 73; Resp 16; Pulse Ox 100% on R/A; sv 18:40 BP 112 / 71; Pulse 78 MON; Resp 22; Pulse Ox 97% on R/A; sv 19:33 BP 113 / 59; Pulse 79; Resp 23; Pulse Ox 97% ; rr5 17:18 Body Mass Index 32.27 (85.28 kg, 162.56 cm) ll1 18:40 Sinus Rhythm sv MDM: 17:22 Patient medically screened. kb 19:14 Data reviewed: vital signs, nurses notes. Data interpreted: Pulse oximetry: on room air kb is 97 %. Interpretation: normal. 19:30 Counseling: I had a detailed discussion with the patient and/or guardian regarding: the kb historical points, exam findings, and any diagnostic results supporting the discharge/admit diagnosis, lab results, radiology results, the need for outpatient follow up, a family practitioner, to return to the emergency department if symptoms worsen or persist or if there are any questions or concerns that arise at home. Physician consultation: Juan CASTRO was contacted at 19:30, regarding consult, patient's condition, agrees with outpatient treatment and recommends ivermectin. ED course: Pt oxygen has been 97% on room air since arrival. Pt has O2 at home to use as needed. 03/04 17:23 Order name: Blood Culture Adult (2) kb 03/04 17:23 Order name: BMP; Complete Time: 18:29 kb 03/04 17:23 Order name: C-Reactive Protein; Complete Time: 18:29 kb 03/04 17:23 Order name: CBC with Diff; Complete Time: 18:15 kb 03/04 17:23 Order name: D-Dimer; Complete Time: 18:15 kb 03/04 17:23 Order name: Ferritin; Complete Time: 18:29 kb 03/04 17:23 Order name: Lactate; Complete Time: 18:20 kb 03/04 17:23 Order name: LFT's; Complete Time: 18:29 kb 03/04 17:23 Order name: Lipase; Complete Time: 18:29 kb 03/04 17:23 Order name: Procalcitonin; Complete Time: 18:41 kb 03/04 17:23 Order name: PT-INR; Complete Time: 18:15 kb 03/04 17:23 Order name: Ptt, Activated; Complete Time: 18:15 kb 03/04 17:23 Order name: Troponin (emerg Dept Use Only); Complete Time: 18:29 kb 03/04 17:54 Order name: Urine Dipstick--Ancillary (enter results); Complete Time: 18:35 eb 03/04 17:23 Order name: CXR XRAY; Complete Time: 18:25 kb 03/04 17:23 Order name: EKG; Complete Time: 17:25 kb 03/04 17:23 Order name: Cardiac monitoring; Complete Time: 17:35 kb 03/04 17:23 Order name: Droplet/Contact Precautions; Complete Time: 17:26 kb 03/04 17:23 Order name: EKG - Nurse/Tech; Complete Time: 17:35 kb 03/04 17:23 Order name: IV Start; Complete Time: 17:51 kb 03/04 17:23 Order name: Labs collected and sent; Complete Time: 17:51 kb 03/04 17:23 Order name: O2 Per Protocol; Complete Time: 17:26 kb 03/04 17:23 Order name: O2 Sat Monitoring; Complete Time: 17:26 kb 03/04 17:54 Order name: Urine --Ancillary (enter results); Complete Time: 18:35 eb 03/04 18:10 Order name: CT Chest For PE Angio; Complete Time: 19:13 kb Administered Medications: 19:30 Drug: SOLU-Medrol 125 mg Route: IVP; Site: right antecubital; rr5 19:31 Not Given (Other Intervention Used): NS 0.9% 1000 ml IV at 100 ml/hr once rr5 19:31 Not Given (not available other intervention used): Ivermectin 0.2 mg/kg PO once rr5 Disposition: 03/05 14:26 Co-signature as Attending Physician, Rickie Enamorado MD I agree with the assessment and kdr plan of care. Disposition: 03/04/20 19:31 Discharged to Home. Impression: Coronavirus infection, unspecified. - Condition is Stable. - Discharge Instructions: Viral Respiratory Infection, Tymi-So-Athu, COVID-19. - Prescriptions for ivermectin 3 mg Oral tablet - take 6 tablet by ORAL route Day 1 Take 6 tabs on day one and 6 tabs on day 3; 12 tablet. Prednisone 20 mg Oral Tablet - take 1 tablet by ORAL route once daily for 5 days; 5 tablet. - Medication Reconciliation Form, Thank You Letter, Antibiotic Education, Prescription Opioid Use form. - Follow up: Emergency Department; When: As needed; Reason: Worsening of condition. Follow up: Private Physician; When: 2 - 3 days; Reason: Recheck today's complaints, Continuance of care, Re-evaluation by your physician. Signatures: Dispatcher [employer] EDNM Daniela Tinoco, INSURANCE CLAIMS CLERK-C INSURANCE CLAIMS CLERK-Sidb Rickie Enamorado MD MD [facility] Jeramy Young RN RN mg2 George Herrmann, STEVE RN rr5 Sudha Sams RN RN ll1 Corrections: (The following items were deleted from the chart) 03/04 19:50 19:31 03/04/2020 19:31 Discharged to Home. Impression: Coronavirus infection, mg2 unspecified. Condition is Stable. Forms are Medication Reconciliation Form, Thank You Letter, Antibiotic Education, Prescription Opioid Use. Follow up: Emergency Department; When: As needed; Reason: Worsening of condition. Follow up: Private Physician; When: 2 - 3 days; Reason: Recheck today's complaints, Continuance of care, Re-evaluation by your physician. kb
--- NOTE | 2020-03-04 19:32 | ER ---
Nurse's Notes [facility] Name: Roxanne Duran Age: 49 yrs Sex: Female : 1970 Arrival Date: 03/04/2020 Time: 17:17 Bed 8 Private MD: Diagnosis: Coronavirus infection, unspecified Presentation: 03/04 17:18 Chief complaint: Patient states: L sided chest pain for 4 days. = SOB and cough. ll1 Diagnosed covid positive this week. Fever 101 at home 4 days ago. Coronavirus screen: Client denies travel out of the [place] in the last 14 days. congestion, cough unrelated to allergies, difficulty breathing, fatigue, Client presents with at least one sign or symptom that may indicate coronavirus-19. Standard/surgical mask placed on the client. Client reports previous positive COVID test result. Ebola Screen: Patient denies travel to an Ebola-affected area in the 21 days before illness onset. Initial Sepsis Screen: Does the patient meet any 2 criteria? No. Patient's initial sepsis screen is negative. Does the patient have a suspected source of infection? Yes: Productive cough/pneumonia. Risk Assessment: Do you want to hurt yourself or someone else? Patient reports no desire to harm self or others. Onset of symptoms was February 29, 2020. 17:18 Method Of Arrival: EMS ll1 17:18 Acuity: SHYLA 3 ll1 17:30 Coronavirus screen: Client reports previous positive COVID test result. Date of sv collection: March 01, 2020 at [facility]. Historical: - Allergies: 17:20 No Known Drug Allergies; ll1 - PMHx: 17:20 Anxiety; COPD; ll1 - Immunization history:: Flu vaccine is not up to date. - Social history:: Smoking status: Patient/guardian denies using tobacco, the patient reports quitting approximately 1.5 years ago. Screenin:23 Abuse screen: Denies threats or abuse. Denies injuries from another. Nutritional sv screening: No deficits noted. Tuberculosis screening: No symptoms or risk factors identified. Fall Risk None identified. Assessment: 17:30 General: Appears in no apparent distress. uncomfortable, well developed, Behavior is sv calm, cooperative, appropriate for age. Pain: Complains of pain in mid-sternal area, left lateral anterior chest and left breast Pain does not radiate. Pain currently is 6 out of 10 on a pain scale. Quality of pain is described as sharp, Pain began today Is intermittent, episodic, Aggravated by deep breathing. Neuro: Level of Consciousness is awake, alert, obeys commands, Oriented to person, place, time, situation, Moves all extremities. Full function Gait is steady, Speech is normal. Cardiovascular: Patient's skin is warm and dry. Pulses are palpable in right radial artery and left radial artery. Respiratory: Airway is patent Respiratory effort is even, unlabored, Respiratory pattern is regular, symmetrical. Respiratory: Reports shortness of breath on exertion since 4 days. Derm: Skin is pink, warm \T\ dry. Musculoskeletal: Range of motion: intact in all extremities. 18:29 Reassessment: Patient appears in no apparent distress at this time. No changes from previously documented assessment. Patient and/or family updated on plan of care and expected duration. Pain level reassessed. Patient is alert, oriented x 3, equal unlabored respirations, skin warm/dry/pink. Vital Signs: 17:18 BP 121 / 56; Pulse 76; Resp 20; Temp 98.1; Pulse Ox 98% on R/A; Weight 85.28 kg; Height ll1 5 ft. 4 in. (162.56 cm); Pain 6/10; 18:03 BP 103 / 66; Pulse 73; Resp 16; Pulse Ox 100% on R/A; sv 18:40 BP 112 / 71; Pulse 78 MON; Resp 22; Pulse Ox 97% on R/A; sv 19:33 BP 113 / 59; Pulse 79; Resp 23; Pulse Ox 97% ; rr5 17:18 Body Mass Index 32.27 (85.28 kg, 162.56 cm) ll1 18:40 Sinus Rhythm ED Course: 17:17 Patient arrived in ED. ll1 17:19 Triage completed. ll1 17:19 Arm band placed on Patient placed in an exam room, on a stretcher. ll1 17:21 Daniela Tinoco FNP-C [facility]. kb 17:21 Rickie Enamorado MD is Attending Physician. kb 17:23 Zuri Mayer, STEVE is Primary Nurse. sv 17:23 Patient has correct armband on for positive identification. Bed in low position. Call sv light in reach. Pulse ox on. NIBP on. 17:24 Patient maintains SpO2 saturation greater than 95% on room air. sv 17:35 First set of blood cultures drawn by me. sv 17:45 Nurse Practitioner and/or Physician Butcher to see patient. sv 17:45 Second set of blood cultures drawn. Inserted saline lock: 20 gauge in right forearm, sv using aseptic technique. Blood collected. Flushed right forearm with 5 ml normal saline. 17:57 EKG done, by ED staff, reviewed by Rickie Enamorado MD. mh5 18:02 property assessment monitor on. sv 18:07 X-ray(s) taken. sv 18:12 Notified Nurse Practitioner and/or Physician Butcher of a critical lab result(s), hb [id number] [id number]. 18:18 CXR XRAY In Process Unspecified. EDMS 18:21 Urine collected: clean catch specimen, clear. mh5 18:[address] via stretcher. sv 18:36 CT Chest For PE Angio In Process Unspecified. EDMS 19:15 Primary Nurse role handed off by Zuri Mayer RN sv 19:30 George Herrmann, STEVE is Primary Nurse. rr5 19:45 No provider procedures requiring assistance completed. IV discontinued, intact, mg2 bleeding controlled, No redness/swelling at site. Pressure dressing applied. Administered Medications: 19:30 Drug: SOLU-Medrol 125 mg Route: IVP; Site: right antecubital; rr5 19:31 Not Given (Other Intervention Used): NS 0.9% 1000 ml IV at 100 ml/hr once rr5 19:31 Not Given (not available other intervention used): Ivermectin 0.2 mg/kg PO once rr5 Outcome: 19:31 Discharge ordered by . kb 19:46 Discharged to home via wheelchair. mg2 19:46 Condition: stable 19:46 Discharge instructions given to patient, Instructed on discharge instructions, follow up and referral plans. medication usage, Demonstrated understanding of instructions, follow-up care, medications, Prescriptions given X 2. 19:50 Patient left the ED. mg2 Signatures: Dispatcher [employer] EDMS Daniela Tinoco, MARIA ELENA-C ELECTRONIC ASSEMBLY-Zuri Garcia RN RN Earlene Moore RN RN Jacquelyn Casas 5 Jeramy Young RN RN [facility] George Herrmann, STEVE RN rr5 Latrell, Lynsay, RN RN ll1
[2020-03-04] MEDS ORDERED: METHYLPREDNISOLONE 125 MG INJ ONE (19:40)
[2020-03-04 19:55] VITALS: TEMP 98.1
[2020-03-04 19:57] VITALS: O2SAT 97
[2020-03-04 19:58] VITALS: BP 113/59
--- NOTE | 2020-03-05 13:29 | EKG ---
Test Date: 2020-03-04 Test Time: 18:01:38 Airplane Captain: GREG MEASUREMENT RESULTS: Intervals: Rate: 70 UT: 140 QRSD: 72 QT: 420 QTc: 453 Theresa: P: 82 UT: 140 QRS: 83 T: 78 INTERPRETIVE STATEMENTS: Normal sinus rhythm with sinus arrhythmia Normal ECG Compared to ECG 01/02/2020 20:14:12 No significant changes Electronically Signed On 03-05-20 13:28:13 OPERATIONS AND MAINTENANCE SPECIALIST by Anthony Hyde
== END 2020-03-04 19:50 | disposition home or self-care (01) ==
LOC: ER 17:08
DX: U07.1 COVID-19 (principal); R07.9 Chest pain, unspecified
CPT/HCPCS: 93005; 87040 ×2; 85025; 80048; 36415; 81025; 85610; 85379; 80076; 83605; 85730; 81003; 84484; 82728; 83690; 84145; 86140; 71275; 71045; 96374; 99285; Q9967; J7030; J2930

== ENCOUNTER 2020-04-29 17:34 | Emergency (ER) | payer OTHER ==
--- OUTSIDE RECORDS SUMMARY | 2020-04-29 17:37 | XMS REPORT | Continuity of Care Document ---
:1970 Author Organization [facility] t Address [address] [place] [address] Care Team Providers Name Role Phone Unavailable [...] - XR CHEST 2 V 2019-12-08 11:11:00 [facility] : 1970 Sex: F FAX: Jn Barton MD [phone] [place]: [address]: REG Name: AMADA RIVERA [facility] [place] : 1970 Age/S: 49/F [address] [place], [place] [address] Unit #: [id number] Loc: [place] [address] Phys: Jn Barrios MD Acct: [id number] Dis Date: Status: REG CLI PHONE #: [phone] Exam Date: 12/08/2019 1111 FAX #: [phone] Reason: R06.02, SHORTNESS OF BREATH. EXAMS: CPT CODE: [id number] XR CHEST 2 V 50484 CLINICAL HISTORY: R06.02, SHORTNESS OF BREATH. COMPARISON: [...]
[2020-04-29] MEDS ORDERED: Magnesium Sulfate 2gm IVPB 2 G/50 ML BAG IV ONE (18:51)
[2020-04-29] MEDS ORDERED: AMIODARONE HCL 150 MG/3 ML INJ IV ONE (18:52)
[2020-04-29] MEDS ORDERED: METHYLPREDNISOLONE 125 MG INJ ONE (19:59)
[2020-04-29] MEDS ORDERED: LEVALBUTEROL 1.25 MG/3 ML NEB ONE (19:59)
[2020-04-29 20:06] LABS: Absolute Lymphocytes (CBC) 2.9 K/uL (0.7-4.9); Basophils % 0.7 % (0-1.3); Lymphocytes % 36.3 % (15.3-44.8); RBC Red Blood Cell Count 4.62 M/uL (3.86-4.86)
--- NOTE | 2020-04-29 20:09 | RAD REPORT ---
EXAM DESCRIPTION: [place] Single View04/29/2020 8:02 pm CLINICAL HISTORY: Cough COMPARISON: February 2020 FINDINGS: The lungs are hyperaerated. The lungs appear clear of acute infiltrate. The heart is normal size IMPRESSION: No acute abnormalities displayed
[2020-04-29 20:24] LABS: BUN Blood Urea Nitrogen 17 mg/dL (7-18); Bicarbonate 31 mmol/L (21-32); Glucose Level 81 mg/dL (74-106); NT PRO-BNP 139 pg/mL (<125); Potassium 3.8 mmol/L (3.5-5.1); Sodium Level 143 mmol/L (136-145); Troponin (Emerg Dept Use Only) < 0.02 ng/mL (0.0-0.045)
[2020-04-29 20:40] LABS: SARS-COV-2 RT PCR NEGATIVE (NEGATIVE)
--- NOTE | 2020-04-29 21:28 | RAD REPORT ---
EXAM DESCRIPTION: CT - Chest For Pe Angio - 04/29/2020 8:58 pm CLINICAL HISTORY: cough COMPARISON: February 2020 TECHNIQUE: Dynamically enhanced axial 3 mm thick images of the chest were obtained during administra tion of <100> mL Isovue 370 IV contrast. Coronal and oblique reconstruction images were generated and reviewed. Exam utilizes a protocol for optimal evaluation of pulmonary arterial tree. Maximum intensity projections 3D imaging was utilized All CT scans are performed using dose optimization technique as appropriate and may include automated exposure control or mA/KV adjustment according to patient size. FINDINGS: A pulmonary embolus is not seen. A thoracic aortic aneurysm is not noted. A pleural effusion is not seen. A pericardial effusion is not seen. A lung consolidation is not present. Mild COPD IMPRESSION: Negative for a pulmonary embolism.
--- NOTE | 2020-04-29 21:40 | ER ---
Nurse's Notes [facility] Name: Roxanne Duran Age: 49 yrs Sex: Female : 1970 Arrival Date: 04/29/2020 Time: 17:35 Bed 24 [facility] MD: Diagnosis: Chronic obstructive pulmonary disease with (acute) exacerbation Presentation: 04/29 17:48 Chief complaint: EMS states: Shortness of breath that began 3 weeks ago. 96% on RA upon ss arrival to patient's home. Coronavirus screen: Client presents with at least one sign or symptom that may indicate coronavirus-19. Standard/surgical mask placed on the client. Ebola Screen: Patient denies exposure to infectious person. Patient denies travel to an Ebola-affected area in the 21 days before illness onset. Initial Sepsis Screen: Does the patient meet any 2 criteria? No. Patient's initial sepsis screen is negative. Does the patient have a suspected source of infection? No. Patient's initial sepsis screen is negative. Risk Assessment: Do you want to hurt yourself or someone else? Patient reports no desire to harm self or others. Onset of symptoms is unknown. 17:48 Method Of Arrival: EMS: [facility] 17:48 Acuity: SHYLA 3 ss Historical: - Allergies: 17:50 No Known Allergies; ss - PMHx: 17:50 Anxiety; COPD; ss - Family history:: not pertinent. - Hospitalizations: : No recent hospitalization is reported. Screenin:28 Abuse screen: Denies threats or abuse. Nutritional screening: No deficits noted. vg1 Tuberculosis screening: No symptoms or risk factors identified. Fall Risk No fall in past 12 months (0 pts). No secondary diagnosis (0 pts). IV access (20 points). Ambulatory Aid- None/Bed Rest/Nurse Assist (0 pts). Gait- Normal/Bed Rest/Wheelchair (0 pts) Mental Status- Oriented to own ability (0 pts). Total Benton Fall Scale indicates No Risk (0-24 pts). Assessment: 19:26 General: Appears in no apparent distress. uncomfortable, Behavior is cooperative, vg1 anxious. Pain: Complains of pain in Lower left rib and left mid back Pain currently is 7 out of 10 on a pain scale. Neuro: Level of Consciousness is awake, alert, obeys commands, Oriented to person, place, time, situation. Cardiovascular: Patient's skin is warm and dry. Respiratory: Airway is patent Respiratory effort is even, labored, Respiratory pattern is regular, symmetrical, Breath sounds are diminished in right posterior lower lobe. Respiratory: Reports shortness of breath at rest on exertion cough that is productive, pain with cough pain with respiration. GI: No signs and/or symptoms were reported involving the gastrointestinal system. : No signs and/or symptoms were reported regarding the genitourinary system. EENT: No signs and/or symptoms were reported regarding the EENT system. Derm: Skin is pink, warm \T\ dry. Musculoskeletal: Circulation, motion, and sensation intact. Vital Signs: 17:55 BP 108 / 67; Pulse 83; Resp 24 S; Temp 97.9(O); Pulse Ox 96% on R/A; Weight 82.55 kg aa5 (R); Height 5 ft. 4 in. (162.56 cm) (R); 19:28 BP 116 / 47; Pulse 85; Resp 22; Pulse Ox 98% on 2 lpm NC; vg1 20:00 BP 113 / 57; Pulse 88; Resp 18; Pulse Ox 97% on R/A; vg1 20:41 Temp 98.3(O); vg1 21:44 BP 100 / 69; Pulse 85; Resp 20; Pulse Ox 97% on 2 lpm NC; vg1 17:55 Body Mass Index 31.24 (82.55 kg, 162.56 cm) aa5 ED Course: 17:35 Patient arrived in ED. ds1 17:49 Triage completed. ss 17:50 Arm band placed on right wrist. ss 19:12 Xochitl Arriaga RN is Primary Nurse. vg1 19:12 Gaetano Barnes MD is Attending Physician. rn 19:14 Primary Nurse role handed off by Xochitl Arriaga RN mw2 19:26 Xochitl Arriaga RN is Primary Nurse. vg1 19:28 Patient has correct armband on for positive identification. Bed in low position. Call 1 light in reach. Side rails up X 1. 19:53 Initial lab(s) drawn, by nm, sent to lab. First set of blood cultures drawn by me. vg1 20:04 Inserted saline lock: 20 gauge in right antecubital area, using aseptic technique. vg1 Blood collected. 20:10 Second set of blood cultures drawn by me. vg1 20:58 CT Chest For PE Angio In Process Unspecified. EDMS 21:55 No provider procedures requiring assistance completed. IV discontinued, intact, vg1 bleeding controlled, No redness/swelling at site. Pressure dressing applied. Administered Medications: 20:03 Drug: SOLU-Medrol 125 mg Route: IVP; Site: right antecubital; vg1 20:29 Follow up: Response: No adverse reaction vg1 20:03 Drug: Xopenex (3) 1.25 mg Route: Inhalation; vg1 20:29 Follow up: Response: No adverse reaction vg1 21:56 Drug: Zithromax (azithromycin) 500 mg Route: PO; vg1 21:56 Follow up: Response: Medication administered at discharge. vg1 Outcome: 21:39 Discharge ordered by . rn 21:55 Discharged to home ambulatory. vg1 21:55 Condition: stable 21:55 Discharge instructions given to patient, Instructed on discharge instructions, follow up and referral plans. medication usage, Demonstrated understanding of instructions, follow-up care, medications, Prescriptions given X 4. 22:05 Patient left the ED. vg1 Signatures: Dispatcher [employer] EDWI PerezNel ds1 Gaetano Barnes MD MD rn Calderon, Audri RN RN aa5 Bel Sheehan RN RN ss [place], MyKena mw2 Xochitl Arriaga, RN RN vg1
--- NOTE | 2020-04-29 21:40 | EDPHYS ---
Physician Documentation [facility] Name: Roxanne Duran Age: 49 yrs Sex: Female : 1970 Arrival Date: 04/29/2020 Time: 17:35 Bed 24 Private MD: ED Physician Gaetano Barnes HPI: 04/29 19:35 This 49 yrs old Female presents to ER via EMS with complaints of Shortness Of rn Breath. 19:35 The patient has shortness of breath at rest, with light activity. Onset: The rn symptoms/episode began/occurred 3 week(s) ago. Duration: The symptoms are intermittent. The patient's shortness of breath is aggravated by coughing, exertion, light activity. Associated signs and symptoms: Pertinent positives: non-productive cough, Pertinent negatives: fever, hemoptysis. Severity of symptoms: At their worst the symptoms were moderate in the emergency department the symptoms are unchanged. The patient has experienced similar episodes in the past. The patient has been recently seen by a physician:. Reports seen by pcp yesterday, offered chest xray but chose to come to hospital today instead, reports 3 weeks progressive sob. No fever. No hemoptysis.. Historical: - Allergies: 17:50 No Known Allergies; ss - PMHx: 17:50 Anxiety; COPD; ss - Family history:: not pertinent. - Hospitalizations: : No recent hospitalization is reported. ROS: 19:35 Constitutional: Negative for fever, chills, and weight loss, Eyes: Negative for injury, rn pain, redness, and discharge, Neck: Negative for injury, pain, and swelling, Cardiovascular: Negative for palpitations Respiratory: + sob and cough, + pleuritic left sided chest pain Abdomen/GI: Negative for abdominal pain, nausea, vomiting, + diarrhea MS/Extremity: Negative for injury and deformity, Skin: Negative for injury, rash, and discoloration, Neuro: Negative for headache, numbness, tingling, and seizure. 19:35 All other systems are negative. Exam: 19:35 Constitutional: This is a well developed, well nourished patient who is awake, alert, rn hyperventilating and crying Head/Face: Normocephalic, atraumatic. ENT: no stridor Cardiovascular: Regular rate and rhythm. No pulse deficits. Respiratory: + mild tachypnea, no retractions, + faint wheezing bilateral upper lobes Abdomen/GI: soft, non-tender Skin: Warm, dry MS/ Extremity: Pulses equal, no cyanosis. Neurovascular intact. Full, normal range of motion. Equal circumference. 1+ edema bilateral lower ext Neuro: Awake and alert, GCS 15, oriented to person, place, time, and situation. Cranial nerves II-XII grossly intact. Motor strength 5/5 in all extremities. Sensory grossly intact. 20:13 ECG was reviewed by the Attending Physician. rn Vital Signs: 17:55 BP 108 / 67; Pulse 83; Resp 24 S; Temp 97.9(O); Pulse Ox 96% on R/A; Weight 82.55 kg aa5 (R); Height 5 ft. 4 in. (162.56 cm) (R); 19:28 BP 116 / 47; Pulse 85; Resp 22; Pulse Ox 98% on 2 lpm NC; vg1 20:00 BP 113 / 57; Pulse 88; Resp 18; Pulse Ox 97% on R/A; vg1 20:41 Temp 98.3(O); vg1 21:44 BP 100 / 69; Pulse 85; Resp 20; Pulse Ox 97% on 2 lpm NC; vg1 17:55 Body Mass Index 31.24 (82.55 kg, 162.56 cm) aa5 MDM: 19:12 Patient medically screened. rn 21:38 Differential diagnosis: Bronchitis Chronic Obstructive Pulmonary Disease Myocardial rn Infarction pneumonia, Pneumothorax Pulmonary Embolism reactive airway disease. Differential diagnosis: Anxiety Reaction. Data reviewed: vital signs, nurses notes, lab test result(s), EKG, radiologic studies, CT scan, plain films, and as a result, I will discharge patient. Counseling: I had a detailed discussion with the patient and/or guardian regarding: the historical points, exam findings, and any diagnostic results supporting the discharge/admit diagnosis, lab results, radiology results, the need for outpatient follow up, to return to the emergency department if symptoms worsen or persist or if there are any questions or concerns that arise at home. Response to treatment: the patient's symptoms have markedly improved after treatment, and as a result, I will discharge patient. Special discussion: I discussed with the patient/guardian in detail that at this point there is no indication for admission to the hospital. It is understood, however, that if the symptoms persist or worsen the patient needs to return immediately for re-evaluation. ED course: CT PE neg, ecg and trop no ischemia, feels much better, COVID and Flu neg, will dc home with steroids, abx given length of symptoms, and refill neb and inhaler. . 04/29 19:25 Order name: Blood Culture Adult (2) rn 04/29 19:25 Order name: BMP; Complete Time: 20:39 rn 04/29 19:25 Order name: CBC with Diff; Complete Time: 20:39 rn 04/29 19:25 Order name: D-Dimer rn 04/29 19:25 Order name: NT PRO-BNP; Complete Time: 20:39 rn 04/29 19:25 Order name: Troponin (emerg Dept Use Only); Complete Time: 20:39 rn 04/29 19:25 Order name: XRAY CXR (1 view) 04/29 19:25 Order name: Procalcitonin 04/29 20:10 Order name: RAD; Complete Time: 20:39 EDMS 04/29 20:40 Order name: CT Chest For PE Angio; Complete Time: 21:33 rn 04/29 20:41 Order name: COVID-19/FLU A+B; Complete Time: 21:33 EDMS 04/29 19:25 Order name: EKG; Complete Time: 19:25 04/29 19:25 Order name: Cardiac monitoring; Complete Time: 20:03 04/29 19:25 Order name: EKG - Nurse/Tech; Complete Time: 20:03 04/29 19:25 Order name: IV Saline Lock; Complete Time: 20:03 rn 04/29 19:25 Order name: Labs collected and sent; Complete Time: 20:03 rn 04/29 19:25 Order name: O2 Per Protocol; Complete Time: 19:30 rn 04/29 19:25 Order name: O2 Sat Monitoring; Complete Time: 19:30 rn EC:13 Rate is 72 beats/min. Rhythm is regular. QRS [place] is Normal. GA interval is normal. QRS rn interval is normal. QT interval is normal. No Q waves. T waves are Normal. No ST changes noted. Clinical impression: Normal ECG. Interpreted by me. Reviewed by me. Administered Medications: 20:03 Drug: SOLU-Medrol 125 mg Route: IVP; Site: right antecubital; vg1 20:29 Follow up: Response: No adverse reaction vg1 20:03 Drug: Xopenex (3) 1.25 mg Route: Inhalation; vg1 20:29 Follow up: Response: No adverse reaction vg1 21:56 Drug: Zithromax (azithromycin) 500 mg Route: PO; vg1 21:56 Follow up: Response: Medication administered at discharge. vg1 Disposition: 04/29/20 21:39 Discharged to Home. Impression: Chronic obstructive pulmonary disease with (acute) exacerbation. - Condition is Stable. - Discharge Instructions: Chronic Obstructive Pulmonary Disease Exacerbation. - Prescriptions for Prednisone 20 mg Oral Tablet - take 3 tablet by ORAL route once daily for 5 days; 15 tablet. Albuterol Sulfate 2.5 mg /3 mL (0.083 %) Inhalation Solution for Nebulization - inhale 1 unit by NEBULIZATION route every 8 hours As needed; 1 box. Zithromax Z- Kvng 250 mg Oral Tablet - take 1 tablet by ORAL route as directed for 5 days Day 1 - take two (2) tablets one time. Day 2, 3, 4 , 5 take one (1) tablet once daily.; 6 tablet. Albuterol Sulfate 90 mcg/actuation - inhale 1-2 puff by INHALATION route every 4-6 hours; 1 Inhaler. - Medication Reconciliation Form, Thank You Letter, Antibiotic Education, Prescription Opioid Use form. - Follow up: Private Physician; When: As needed; Reason: Recheck today's complaints, Re-evaluation by your physician. - Problem is an ongoing problem. - Symptoms have improved. Signatures: Dispatcher [employer] [facility] Gaetano Barnes MD MD rn Smirch, Shelby RN RN Xochitl Ruiz RN RN vg1 Corrections: (The following items were deleted from the chart) 20:18 19:25 Influenza Screen (A \T\ B)+BA.LAB.BRZ ordered. [facility] EDLA 20:18 19:26 Influenza Screen (A ordered. [facility] EDLA 22:05 21:39 04/29/2020 21:39 Discharged to Home. Impression: Chronic obstructive pulmonary vg1 disease with (acute) exacerbation. Condition is Stable. Forms are Medication Reconciliation Form, Thank You Letter, Antibiotic Education, Prescription Opioid Use. Follow up: Private Physician; When: As needed; Reason: Recheck today's complaints, Re-evaluation by your physician. Problem is an ongoing problem. Symptoms have improved. rn
[2020-04-29] MEDS ORDERED: AZITHROMYCIN 250 MG TAB ONE (22:05)
[2020-04-29 22:44] VITALS: TEMP 98.3; O2SAT 97
[2020-04-29 22:46] VITALS: BP 100/69
--- NOTE | 2020-04-30 08:29 | EKG ---
Test Date: 2020-04-29 Test Time: 19:36:37 Foreign Collection Clerk: JOSE ARMANDO MEASUREMENT RESULTS: Intervals: Rate: 72 OR: 134 QRSD: 76 QT: 392 QTc: 429 [place]: P: 88 OR: 134 QRS: 84 T: 78 INTERPRETIVE STATEMENTS: Normal sinus rhythm with sinus arrhythmia Normal ECG Compared to ECG 03/04/2020 18:01:38 No significant changes Electronically Signed On 04-30-20 08:28:50 DATABASE MARKETING MANAGER by Anthony Hyde
== END 2020-04-29 22:05 | disposition home or self-care (01) ==
LOC: ER 17:34
DX: J44.1 Chronic obstructive pulmonary disease with (acute) exacerbation (principal); F41.9 Anxiety disorder, unspecified; Z20.822 Contact with and (suspected) exposure to COVID-19
CPT/HCPCS: 93005; 87040 ×2; 85025; 80048; 36415; 85379; 84484; 84145; 83880; 0240U; 71275; 71045; Q9967; J0282; J3475; J2930; 96374; 99284

== ENCOUNTER 2020-05-31 17:50 | Inpatient (IN) | payer OTHER ==
--- OUTSIDE RECORDS SUMMARY | 2020-05-31 17:53 | XMS REPORT | Continuity of Care Document ---
:1970 Author Organization [facility] t Address [address] [place] [address] Care Team Providers Name Role Phone Marcos Babcock MD Attending Clinician Earl BELCHER Attending Clinician Isidro Lechuga MD Attending Clinician Only, Test Attending Clinician Unavailable Pob, Lab Main Attending Clinician Unavailable Doctor Unassigned, Name Attending Clinician Unavailable Marcos Babcock MD Admitting Clinician Payers Payer Name Policy Type Policy Number Effective Date Expiration Date S ource Problems This patient has no known problems. Allergies, Adverse Reactions, Alerts This patient has no known allergies or adverse reactions. Medications This patient has no known medications. Procedures This patient has no known procedures. Encounters Start End Encounter Admission Attending Care Care Encounter Source Date/Time Date/Time Type Type Clinicians Facility Department ID 2020-05-26 2020-05-26 [facility] Sadiq TXLLOYD [id number] 10:30:00 12:59:00 Encounter Riky Hernandez [id number] Marcos Rivera [id number] Surgical [id number] [place] 071 2020-05-26 2020-05-26 Surgery [facility] [id number] 12:12:00 12:48:00 [place] [id number] [place] [id number] Surgical [id number] [place] 020 2020-05-26 2020-05-26 Anesthesia Bradley Elliott [facility] 1.2.840. [id number] 12:09:00 12:37:00 Event Riky Lechuga [id number]. 10 [place] [id number] Surgical [id number] [place] 020 2020-05-25 2020-05-25 Laboratory Only, [facility] [id number] 10:21:30 10:36:30 Only Test Mary [id number] [place] [id number] [place] [id number] [facility] 2020-05-19 2020-05-19 Mobile Marketing Specialist Torie, [facility] [id number] 12:11:02 12:26:02 Visit Lab Main Mary [id number] [place] 4.2.7.2.686 Professio [id number] [address] 2020-05-19 2020-05-19 Orders Doctor CLAYTON [id number] 00:00:00 00:00:00 Only Unassigned, CHRIS [id number] [place] [facility] 4.2.7.2.686 [id number] [id number] Results Test Description Test Time Test Comments Results Result Comments Source - XR CHEST 2 V 2019-12-08 11:11:00 [facility] 1970 Sex: F FAX: Jn Barton MD [phone] [place]: St: REG Name: MAADA RIVERA [facility] : 1970 Age/S: 49/F [address] [place] [address] Blvd Unit #: [id number] Loc: [place] [address] Phys: Jn Barrios MD Acct: [id number] Dis Date: Status: REG CLI PHONE #: [phone] Exam Date: 12/08/2019 1111 FAX #: [phone] Reason: R06.02, SHORTNESS OF BREATH. EXAMS: CPT CODE: [id number] XR CHEST 2 V 45893 CLINICAL HISTORY: R06.02, SHORTNESS OF BREATH. COMPARISON: [...] Lu M.D. CC: Jn Barrios MD Technologist: NANDO Dyer) Trnscmarlene Date/Time/By: 12/08/2019 (1111) : By: Juan Orig Print D/T: S: 12/08/2019 (1418) PAGE 1 Signed Report
[2020-05-31 18:45] LABS: Basophils % 0.4 % (0-1.3); Hematocrit 42.5 % (36.0-45.0); Lymphocytes % 24.6 % (15.3-44.8); MPV 8.1 fL (7.6-11.3); RBC Red Blood Cell Count 4.44 M/uL (3.86-4.86)
[2020-05-31 18:54] LABS: Protime INR 0.9
[2020-05-31] MEDS ORDERED: MORPHINE 2 MG/ML SYR ONE (18:54)
[2020-05-31] MEDS ORDERED: ONDANSETRON 4 MG/2 ML VIAL ONE (18:54)
[2020-05-31] MEDS ORDERED: METHYLPREDNISOLONE 125 MG INJ ONE (18:54)
[2020-05-31] MEDS ORDERED: LEVALBUTEROL 1.25 MG/3 ML NEB ONE (18:55)
[2020-05-31] MEDS ORDERED: MAGNESIUM SULFATE 1 gm IVPB 1 GM/100 ML BAG IV ONE (18:55)
--- NOTE | 2020-05-31 18:57 | RAD REPORT ---
EXAM DESCRIPTION: RAD - Chest Single View - 05/31/2020 6:26 pm CLINICAL HISTORY: Shortness of breath, COPD COMPARISON: Portable April 29 TECHNIQUE: AP portable chest image was obtained 05/31/2020 6:26 pm . FINDINGS: No focal mass or consolidation. Chronic interstitial lung pattern matches comparison. Hear t and vasculature are normal. No measurable pleural effusion and no pneumothorax. No acute bony abnor mality seen. No acute aortic findings suspected. IMPRESSION: No acute cardiopulmonary process. Chronic interstitial pattern matches comparison. Severity could potentially mask minimal interstitial edema or infiltrate.
[2020-05-31 19:11] LABS: ALT/SGPT 15 U/L (12-78); AST/SGOT 21 U/L (15-37); Albumin 3.2 g/dL (3.4-5.0); Alkaline Phosphatase 81 U/L (45-117); BUN Blood Urea Nitrogen 12 mg/dL (7-18); Bicarbonate 28 mmol/L (21-32); Bilirubin Direct < 0.1 mg/dL (0-0.2); Bilirubin Total 0.3 mg/dL (0.2-1.0); Glucose Level 91 mg/dL (74-106); Magnesium 2.1 mg/dL (1.8-2.4); NT PRO-BNP 34 pg/mL (<125); Potassium 3.7 mmol/L (3.5-5.1); Protein, Total 6.8 g/dL (6.4-8.2); Sodium Level 144 mmol/L (136-145); Troponin (Emerg Dept Use Only) < 0.02 ng/mL (0.0-0.045)
[2020-05-31] MEDS ORDERED: NA CHLORIDE 0.9% 2,000 ML ONE (19:14)
[2020-05-31 20:32] LABS: SARS-COV-2 RT PCR NEGATIVE (NEGATIVE)
--- NOTE | 2020-05-31 21:20 | EDPHYS ---
Physician Documentation [facility] Name: Roxanne Duran Age: 49 yrs Sex: Female : 1970 Arrival Date: 05/31/2020 Time: 17:51 Bed 2 Private MD: ED Physician Rickie Enamorado HPI: 05/31 18:00 This 49 yrs old Female presents to ER via EMS with complaints of Shortness Of jmm Breath. 18:00 The patient has shortness of breath at rest. Onset: The symptoms/episode began/occurred jmm gradually, 3 day(s) ago. Duration: The symptoms are continuous. The patient's shortness of breath is aggravated by nothing, is alleviated by nothing. Associated signs and symptoms: Pertinent positives: non-productive cough, fever. The patient has experienced a previous episode. This is a 49 year old female with a history of anxiety, copd that presents to the ED with complaints of cough, shortness of breath beginning approx 3 days ago Patient states having similar symptoms when diagnosed with pneumonia. . 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 - Social history:: Smoking status: Patient/guardian denies using tobacco, the patient reports quitting approximately 3 years ago, Patient/guardian denies using alcohol, street drugs. ROS: 18:00 Cardiovascular: Negative for chest pain, palpitations, and edema. jmm 18:00 Constitutional: Positive for body aches, fever. 18:00 Respiratory: Positive for cough, shortness of breath. 18:00 All other systems are negative. Exam: 18:00 Constitutional: This is a well developed, well nourished patient who is awake, alert, jmm and in no acute distress. Head/Face: atraumatic. Eyes: EOMI, no conjunctival erythema appreciated ENT: Moist Mucus Membranes Neck: Trachea midline, Supple Chest/axilla: Normal chest wall appearance and motion. 18:00 Cardiovascular: Regular rate and rhythm. No edema appreciated 18:00 Abdomen/GI: Non distended, soft Back: Normal ROM Skin: General appearance color normal MS/ Extremity: Moves all extremities, no obvious deformities appreciated, no edema noted to the lower extremities Neuro: Awake and alert, normal gait Psych: Behavior is normal, Mood is normal, Patient is cooperative and pleasant 18:00 Respiratory: mild respiratory distress is noted, Respirations: tachypnea, Breath sounds: wheezing: that is mild, is scattered. Vital Signs: 17:52 BP 133 / 117; Pulse 104; Resp 20; Temp 99.3; Pulse Ox 94% on R/A; Weight 86.18 kg; ld1 Height 5 ft. 4 in. (162.56 cm); Pain 0/10; 18:00 BP 93 / 54; Pulse 99; Resp 24; Pulse Ox 93% ; ea 18:50 BP 77 / 63; Pulse 91; Resp 23 S; Temp 99.6; Pulse Ox 100% on Nebulizer Mask; ea 19:21 BP 86 / 48; Pulse 96; Resp 17; Pulse Ox 100% on Nebulizer Mask; ea 19:28 BP 107 / 64; Pulse 110; Resp 22; Temp 98.5; Pulse Ox 95% on R/A; ea 20:20 BP 110 / 63; Pulse 105; Resp 17; Pulse Ox 94% on R/A; ea 21:13 BP 117 / 66; Pulse 108; Resp 24; Pulse Ox 88% on R/A; ea 22:26 BP 110 / 62; Pulse 95; Resp 18; Pulse Ox 98% on 2 lpm NC; ea 23:19 BP 105 / 58; Pulse 98; Resp 20; Temp 98.5; Pulse Ox 95% ; ea 17:52 Body Mass Index 32.61 (86.18 kg, 162.56 cm) ld1 MDM: 18:00 Patient medically screened. yajaira 21:18 Data reviewed: vital signs, nurses notes. Counseling: I had a detailed discussion with yajaira the patient and/or guardian regarding: the historical points, exam findings, and any diagnostic results supporting the discharge/admit diagnosis, lab results, radiology results, the need for further work-up and treatment in the hospital. ED course: I discussed the patient with Edwin Mata whom accepted the patient ti Dr. Barnes's service. 05/31 18:02 Order name: Basic Metabolic Panel [facility] 05/31 18:02 Order name: CBC with Diff [facility] 05/31 18:02 Order name: LFT's; Complete Time: 19:13 [facility] 05/31 18:02 Order name: Magnesium; Complete Time: 19:13 [facility] 05/31 18:02 Order name: NT PRO-BNP; Complete Time: 19:13 [facility] 05/31 18:02 Order name: PT-INR; Complete Time: 20:06 [facility] 05/31 18:02 Order name: Troponin (emerg Dept Use Only); Complete Time: 19:13 [facility] 05/31 18:02 Order name: Blood Culture Adult (2) [facility] 05/31 18:02 Order name: Lactate; Complete Time: 18:56 [facility] 05/31 18:02 Order name: Procalcitonin; Complete Time: 19:43 [facility] 05/31 18:03 Order name: Basic Metabolic Panel; Complete Time: 19:13 [facility] 05/31 18:03 Order name: CBC with Automated Diff; Complete Time: 18:52 [facility] 05/31 18:02 Order name: XRAY Chest (1 view); Complete Time: 18:57 [facility] 05/31 18:02 Order name: EKG; Complete Time: 18:03 [facility] 05/31 18:02 Order name: Cardiac monitoring; Complete Time: 18:06 [facility] 05/31 18:02 Order name: EKG - Nurse/Tech; Complete Time: 19:04 [facility] 05/31 18:02 Order name: IV Saline Lock; Complete Time: 19:04 [facility] 05/31 18:02 Order name: Labs collected and sent; Complete Time: 19:04 [facility] 05/31 18:02 Order name: O2 Per Protocol; Complete Time: 18:06 [facility] 05/31 18:02 Order name: O2 Sat Monitoring; Complete Time: 18:06 [facility] 05/31 20:32 Order name: COVID-19/FLU A+B; Complete Time: 20:44 EDMS 05/31 22:45 Order name: Chest For PE Angio CT la1 Administered Medications: 18:45 Drug: Zofran (Ondansetron) 4 mg Route: IVP; Site: right antecubital; ld1 22:26 Follow up: Response: No adverse reaction ea 18:45 Drug: Xopenex (levalbuterol) (3) 1.25 mg Route: Inhalation; ld1 18:45 Drug: Magnesium Sulfate 1 grams Route: IVPB; Infused Over: 1 hrs; Site: right ld1 antecubital; 19:52 Follow up: Response: No adverse reaction; IV Status: Completed infusion; IV Intake: [id number] 18:45 Drug: SOLU-Medrol (methylPrednisoLONE) 125 mg Route: IVP; Site: right antecubital; ld1 22:27 Follow up: Response: No adverse reaction ea 19:03 Drug: NS 0.9% (30 ml/kg) 30 ml/kg Route: IV; Rate: bolus; Site: left wrist; ld1 Disposition: 06/01 06:11 Co-signature as Attending Physician, Rickie Enamorado MD I agree with the assessment and kdr plan of care. Disposition: 05/31/20 21:19 Hospitalization ordered by George Barnes for Observation. Preliminary diagnosis are Chronic obstructive pulmonary disease with (acute) exacerbation, Hypoxia. - Bed requested for Telemetry/MedSurg (observation). - Status is Observation. ea - Condition is Stable. - Problem is new. - Symptoms are unchanged. Signatures: Dispatcher [employer] [facility] Mary Beth Sidhu RN RN Rickie Enamorado MD MD kdr Mickail, Joel, PA PA Edwin Navarro, JEWELRY INSPECTOR-C JEWELRY INSPECTOR-Cla1 Janessa Alcantara RN RN Milly Hickman RN RN ld1 George Herrmann RN [id number] Corrections: (The following items were deleted from the chart) 05/31 18:55 18:07 CORONAVIRUS+MR.LAB.BRZ ordered. EDME EDMS 18:55 18:07 Influenza Screen (A \T\ B)+BA.LAB.BRZ ordered. EDME EDMS 22:44 21:19 Hospitalization Ordered by George Barnes MD for Observation. Preliminary diagnosis is Chronic obstructive pulmonary disease with (acute) exacerbation; Hypoxia. Bed requested for Telemetry/MedSurg (observation). Status is Observation. Condition is Stable. Problem is new. Symptoms are unchanged. yajaira 23:20 22:44 05/31/2020 21:19 Hospitalization Ordered by George Barnes MD for Observation. ea Preliminary diagnosis is Chronic obstructive pulmonary disease with (acute) exacerbation; Hypoxia. Bed requested for Telemetry/MedSurg (observation). Status is Observation. Condition is Stable. Problem is new. Symptoms are unchanged. mw
--- NOTE | 2020-05-31 21:20 | ER ---
Nurse's Notes [facility] Name: Roxanne Duran Age: 49 yrs Sex: Female : 1970 Arrival Date: 05/31/2020 Time: 17:51 Bed 2 Private MD: Diagnosis: Chronic obstructive pulmonary disease with (acute) exacerbation;Hypoxia Presentation: 05/31 17:52 Chief complaint: Patient states: Toned out for SOB. Patient states she has been short ld1 of breath for 3 days. Coronavirus screen: Client denies travel out of the [place] in the last 14 days. At this time, the client does not indicate any symptoms associated with coronavirus-19. Ebola Screen: No symptoms or risks identified at this time. Initial Sepsis Screen: Does the patient have a suspected source of infection? No. Patient's initial sepsis screen is negative. Risk Assessment: Do you want to hurt yourself or someone else? Patient reports no desire to harm self or others. Onset of symptoms was May 29, 2020. 17:52 Method Of Arrival: EMS: [facility] ld1 17:52 Acuity: SHYLA 2 ld1 23:16 Initial Sepsis Screen: Does the patient meet any 2 criteria?. ea Triage Assessment: 17:58 General: Appears in no apparent distress. uncomfortable, Behavior is calm, cooperative, ld1 appropriate for age. Pain: Denies pain. EENT: No deficits noted. No signs and/or symptoms were reported regarding the EENT system. Neuro: Level of Consciousness is awake, alert, obeys commands, Oriented to person, place, time, situation. Cardiovascular: Capillary refill < 3 seconds Patient's skin is warm and dry. Respiratory: Reports shortness of breath at rest on exertion since patient states SOB for three days. Airway is patent Respiratory effort is even, unlabored, Respiratory pattern is regular, symmetrical. GI: Abdomen is flat, non-distended. : No deficits noted. No signs and/or symptoms were reported regarding the genitourinary system. Derm: No deficits noted. No signs and/or symptoms reported regarding the dermatologic system. Musculoskeletal: No deficits noted. No signs and/or symptoms reported regarding the musculoskeletal system. 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 - Social history:: Smoking status: Patient/guardian denies using tobacco, the patient reports quitting approximately 3 years ago, Patient/guardian denies using alcohol, street drugs. Screenin:01 Abuse screen: Denies threats or abuse. Denies injuries from another. Nutritional ld1 screening: No deficits noted. Tuberculosis screening: No symptoms or risk factors identified. Fall Risk None identified. Assessment: 18:01 Reassessment: See triage note. Cardiovascular: Rhythm is regular. Respiratory: Airway ld1 is patent Respiratory effort is even, unlabored, Respiratory pattern is regular, symmetrical, Breath sounds with wheezes in right posterior middle lobe and right posterior lower lobe. GI: No deficits noted. : No deficits noted. EENT: Reports Patient states she had cataract surgery 05/26/2020 on right eye.. Derm: No deficits noted. Musculoskeletal: No deficits noted. 18:25 Reassessment: Notified ERP of BP 77/63. See MAR for orders. ld1 19:29 General: Appears in no apparent distress. Behavior is appropriate for age. Pain: Denies ea pain. Neuro: Level of Consciousness is awake, alert, obeys commands, Oriented to person, place, time, situation. Cardiovascular: Patient's skin is warm and dry. Respiratory: Airway is patent Respiratory effort is even, unlabored, Respiratory pattern is regular, symmetrical. Derm: Skin is pink, warm \T\ dry. 20:20 Reassessment: Patient and/or family updated on plan of care and expected duration. Pain ea level reassessed. Patient is alert, oriented x 3, equal unlabored respirations, skin warm/dry/pink. Patient states feeling better. 22:26 Reassessment: Patient and/or family updated on plan of care and expected duration. Pain ea level reassessed. Patient is alert, oriented x 3, equal unlabored respirations, skin warm/dry/pink. 23:16 Reassessment: Patient and/or family updated on plan of care and expected duration. Pain ea level reassessed. Patient is alert, oriented x 3, equal unlabored respirations, skin warm/dry/pink. Report called to receiving nurse on fourth floor. Vital Signs: 17:52 BP 133 / 117; Pulse 104; Resp 20; Temp 99.3; Pulse Ox 94% on R/A; Weight 86.18 kg; ld1 Height 5 ft. 4 in. (162.56 cm); Pain 0/10; 18:00 BP 93 / 54; Pulse 99; Resp 24; Pulse Ox 93% ; ea 18:50 BP 77 / 63; Pulse 91; Resp 23 S; Temp 99.6; Pulse Ox 100% on Nebulizer Mask; ea 19:21 BP 86 / 48; Pulse 96; Resp 17; Pulse Ox 100% on Nebulizer Mask; ea 19:28 BP 107 / 64; Pulse 110; Resp 22; Temp 98.5; Pulse Ox 95% on R/A; ea 20:20 BP 110 / 63; Pulse 105; Resp 17; Pulse Ox 94% on R/A; ea 21:13 BP 117 / 66; Pulse 108; Resp 24; Pulse Ox 88% on R/A; ea 22:26 BP 110 / 62; Pulse 95; Resp 18; Pulse Ox 98% on 2 lpm NC; ea 23:19 BP 105 / 58; Pulse 98; Resp 20; Temp 98.5; Pulse Ox 95% ; ea 17:52 Body Mass Index 32.61 (86.18 kg, 162.56 cm) ld1 ED Course: 17:51 Patient arrived in ED. ds1 17:52 Milly Elias, STEVE is Primary Nurse. ld1 17:52 Milo Collazo PA is PHCP. jmm 17:52 Rickie Enamorado MD is Attending Physician. [facility] 17:54 Triage completed. ld1 17:58 Arm band placed on left wrist. Patient placed in an exam room, on a stretcher, on ld1 cafeteria monitor, on pulse oximetry. 18:01 Patient has correct armband on for positive identification. Placed in gown. Bed in low ld1 position. Call light in reach. Side rails up X 1. Door closed. Noise minimized. Warm blanket given. 18:01 No provider procedures requiring assistance completed. ld1 18:25 Inserted saline lock: 20 gauge in right antecubital area, using aseptic technique. ld1 Blood collected. 18:26 XRAY Chest (1 view) In Process Unspecified. EDMS 19:04 Basic Metabolic Panel Sent. ld1 19:05 CBC with Diff Sent. ld1 19:07 Inserted. ld1 21:19 George Barnes MD is Hospitalizing Provider. m 23:16 Patient admitted, IV remains in place. ea Administered Medications: 18:45 Drug: Zofran (Ondansetron) 4 mg Route: IVP; Site: right antecubital; ld1 22:26 Follow up: Response: No adverse reaction ea 18:45 Drug: Xopenex (levalbuterol) (3) 1.25 mg Route: Inhalation; ld1 18:45 Drug: Magnesium Sulfate 1 grams Route: IVPB; Infused Over: 1 hrs; Site: right ld1 antecubital; 19:52 Follow up: Response: No adverse reaction; IV Status: Completed infusion; IV Intake: [id number] 18:45 Drug: SOLU-Medrol (methylPrednisoLONE) 125 mg Route: IVP; Site: right antecubital; ld1 22:27 Follow up: Response: No adverse reaction ea 19:03 Drug: NS 0.9% (30 ml/kg) 30 ml/kg Route: IV; Rate: bolus; Site: left wrist; ld1 Intake: 19:52 IV: 50ml; Total: 50ml. rr5 Outcome: 21:19 Decision to Hospitalize by Provider. [facility] 23:15 Admitted to Med/surg accompanied by tech, via stretcher, room Report called to ea receiving nurse, with oxygen. 23:15 Condition: stable 23:15 Instructed on the need for admit, Demonstrated understanding of instructions. 23:20 Patient left the ED. ea Signatures: Dispatcher [employer] EDMS Milo Collazo PA PA jmNel Osorio ds1 Janessa Alcantara RN RN George Naqvi, RN RN rr5 Dibbern, Milly, RN RN ld1
--- NOTE | 2020-05-31 22:45 | P.HP ---
Certification for Inpatient Patient admitted to: Inpatient With expected LOS: >2 Midnights Patient will require the following post-hospital care: None Practitioner: I am a practitioner with admitting privileges, knowledge of patient current condition, hospital course, and medical plan of care. Services: Services provided to patient in accordance with Admission requirements found in Title 42 Section 412.3 of the Code of Federal Regulations <Edwin Mata - Last Filed: 05/31/20 22:41> Patient History Date of Service: 05/31/20 Primary Care Provider: Lane beverly Reason for admission: COPD exacerbation History of Present Illness: 49-year-old female with history of COPD, anxiety, DVT presents emergency department for shortness of breath. Patient reports progressive shortness of breath, increased sputum production, wheezing increasing over the course of the last few days. EMS was called, patient's saturations in the 80s on scene, given albuterol/Atrovent treatments en route to the emergency department, patient evaluated in the emergency department found to be around 85- 88% on room air white blood cell count within normal limits pro calcitonin negative labs otherwise unremarkable. Patient with recent history of DVT, was taking Eliquis but had stopped taking it about a week and a half ago for cataract procedure to the right eye. Patient still hypoxic, tachypneic after receiving additional albuterol/Atrovent treatments and IV steroids/IV magnesium in the emergency department, ED provider wishes to admit for further evaluation and management of COPD exacerbation. - Past Medical/Surgical History Diabetic: No -: COPD -: ANXIETY -: DVT -: HYSTERECTOMY Psychosocial/ Personal History: Patient lives at home with her children is currently unemployed - Family History Mother -: Lung disease, Other (see notes) Notes: OXYGEN DEPENDENT, SMOKER. depresssion Father -: Lung disease, GI disease, Kidney disease Notes: SMOKER - Social History Smoking Status: Former smoker Alcohol use: No CD- Drugs: No Caffeine use: Yes Place of Residence: Home <Edwin Mata - Last Filed: 05/31/20 22:41> Date of Service: 06/01/20 <George Barnes - Last Filed: 06/01/20 14:40> Allergies No Known Drug Allergies Allergy (Verified 12/25/19 22:10) Unknown No Known Allergies Allergy (Uncoded 12/25/19 22:10) Unknown Home Medications: Albuterol Neb [Proventil 0.083% Neb Soln] 2.5 mg IH TID PRN #90 amp 12/14/19 Albuterol Sulfate [Proair Hfa] 2 puff IH TID PRN #1 12/14/19 Apixaban [Eliquis] 5 mg PO BID #60 tablet 12/26/19 Bromfenac Sodium [Prolensa] 1 drop OP DAILY 06/01/20 Budesonide/Formoterol Fumarate [Symbicort 160-4.5 Mcg Inhaler] 2 puff IH BID 06/01/20 Ofloxacin Oph [Floxin 0.3% Otic Soln] 1 drop OT TID 06/01/20 Prednisol Acet 1% Opth [Pred Forte 1% Ophth Susp] 1 drop OP SEECOM 06/01/20 Review of Systems 10-point ROS is otherwise unremarkable Respiratory: Cough, Shortness of Breath, SOB with Excertion, Sputum, Wheezing <Edwin Mata - Last Filed: 05/31/20 22:41> Physical Examination - Physical Exam General: Alert, In no apparent distress HEENT: Atraumatic, PERRLA, Mucous membr. moist/pink Neck: Supple, 2+ carotid pulse no bruit, No LAD Respiratory: Normal air movement, Expiratory wheezes Cardiovascular: Regular rate/rhythm, Normal S1 S2 Capillary refill: <2 Seconds Gastrointestinal: Normal bowel sounds, No tenderness Musculoskeletal: No tenderness Integumentary: No rashes Neurological: Normal speech, Normal strength at 5/5 x4 extr, Normal tone, Normal affect - Studies Laboratory Data (last 24 hrs) 05/31/20 18:30: PT 10.3, INR 0.90 05/31/20 18:30: WBC 8.10, Hgb 14.4, Hct 42.5, Plt Count 229 05/31/20 18:30: Sodium 144, Potassium 3.7, BUN 12, Creatinine 0.92, Glucose 91, Magnesium 2.1, Total Bilirubin 0.3, AST 21, ALT 15, Alkaline Phosphatase 81 <Edwin Mata - Last Filed: 05/31/20 22:41> - Studies Laboratory Data (last 24 hrs) 05/31/20 18:30: PT 10.3, INR 0.90 05/31/20 18:30: WBC 8.10, Hgb 14.4, Hct 42.5, Plt Count 229 05/31/20 18:30: Sodium 144, Potassium 3.7, BUN 12, Creatinine 0.92, Glucose 91, Magnesium 2.1, Total Bilirubin 0.3, AST 21, ALT 15, Alkaline Phosphatase 81 <George Barnes - Last Filed: 06/01/20 14:40> Assessment and Plan - Plan Assessment Acute hypoxic respiratory failure secondary to COPD exacerbation History of DVT Plan Acute hypoxic respiratory failure secondary to COPD exacerbation: Continue with IV steroids, inhalers, nebulizer treatments, supplemental oxygen as needed. Pulmonology consulted. Anticipate clinical improvement in the next 24-48 hr. Daily room air saturations. History of DVT: Patient was diagnosed with DVT to the right lower extremity approximately 1-2 months ago and was taking Eliquis, patient recently discontinued her Eliquis to have a procedure on her right eye, patient reports some intermittent pain and swelling to the left lower extremity as well, will obtain ultrasound bilateral lower extremity to rule out DVT. Discharge Plan: Home Plan to discharge in: 48 Hours - Advance Directives Does patient have a Living Will: No Does patient have a Durable POA for Healthcare: No - Code Status/Comfort Care Code Status Assessed: Yes (Full code) Critical Care: No Time Spent Managing Pts Care (In Minutes): 55 <Edwin Mata - Last Filed: 05/31/20 22:41> - Plan plan of care reviewed as noted above by Edwin Mata Acute hypoxic respiratory failure secondary to acute on chronic COPD exacerbation Continue steroids, nebulizers, oxygen. Pulmonology consulted <George Barnes - Last Filed: 06/01/20 14:40>
[2020-05-31] MEDS ORDERED: ACETAMINOPHEN 500 MG TAB PO PRN (23:38)
[2020-05-31] MEDS ORDERED: ONDANSETRON 4 MG/2 ML VIAL IV PRN (23:38)
[2020-06-01 00:19] VITALS: BMI 32.3
[2020-06-01] MEDS: BENZONATATE 100 MG CAP PO PRN ×4 (00:56→22:51)
[2020-06-01] MEDS: MELATONIN 5 MG TABLET PO PRN ×2 (00:57→20:27)
[2020-06-01] MEDS: HYDROCODONE/APAP 5/325 MG TAB PO PRN ×3 (00:57→20:29)
[2020-06-01] MEDS: METHYLPREDNISOLONE 125 MG INJ IV SCH ×2 (00:57→07:39)
[2020-06-01] MEDS: IPRATROPIUM BROM 0.5MG/2.5ML NEB SCH ×4 (02:00→20:00)
[2020-06-01] MEDS: ALBUTEROL 2.5 MG/3 ML NEB SOL NEB SCH ×4 (02:00→20:00)
[2020-06-01] MEDS ORDERED: ALBUTEROL INHALER 60 PUFF/8 GM IH PRN (03:48)
[2020-06-01 04:29] LABS: Absolute Lymphocytes (CBC) 0.5 K/uL (0.7-4.9); Basophils % 0.1 % (0-1.3); Hematocrit 37.1 % (36.0-45.0); Lymphocytes % 9.2 % (15.3-44.8); MPV 8.1 fL (7.6-11.3); RBC Red Blood Cell Count 3.86 M/uL (3.86-4.86)
[2020-06-01] MEDS ORDERED: PREDNISOLONE 1% OPTH SCH (04:30)
[2020-06-01] MEDS ORDERED: OPTH OPTH SCH (04:30)
[2020-06-01 04:59] LABS: Albumin 2.8 g/dL (3.4-5.0); Bilirubin Total 0.2 mg/dL (0.2-1.0); Magnesium 2.3 mg/dL (1.8-2.4); Potassium 4.5 mmol/L (3.5-5.1); Thyroid Stimulating Hormone 0.305 uIU/mL (0.360-3.740)
[2020-06-01 05:40] LABS: Blood Morphology Comment NOT SEEN (NOT SEEN); Platelet Estimate ADEQ
[2020-06-01] MEDS: [UNRECOGNIZED DRUG - OTHER] OTIC SCH ×3 (07:36→20:31)
[2020-06-01] MEDS: BROMFENAC SODIUM OPTH SCH (07:36)
[2020-06-01] MEDS: APIXABAN 5 MG TABLET PO SCH ×2 (07:39→20:28)
[2020-06-01] MEDS ORDERED: OFLOXACIN OPH 0.3%-5 ML BTL OTIC SCH (09:00)
[2020-06-01] MEDS ORDERED: DULERA 100/5 (MOMETASONE/FORMOTEROL) INHALER IH SCH (09:00)
[2020-06-01] MEDS ORDERED: ENOXAPARIN 40 MG/0.4 ML SQ SCH (09:00)
--- NOTE | 2020-06-01 09:35 | RAD REPORT ---
EXAM DESCRIPTION: US - Extrem Venous W Compress Max - 06/01/2020 9:15 am CLINICAL HISTORY: R/O DVT, leg pain, history of DVT COMPARISON: None. TECHNIQUE: Real-time sonographic evaluation of the bilateral lower extremity common femoral, superfi cial femoral, popliteal and posterior tibial veins was performed. FINDINGS: Normal compressibility, flow augmentation, phasic flow and spontaneous flow are identified in the left and right lower extremity common femoral, superficial femoral, popliteal and posterior t ibial veins. The thrombus seen in the right popliteal and posterior tibial veins December 2019 has re solved. Elsewhere there are no intraluminal filling defects. IMPRESSION: No DVT in either lower extremity. Thrombus in the right popliteal and posterior tibial veins December 2019 has resolved.
--- NOTE | 2020-06-01 10:55 | RAD REPORT ---
EXAM DESCRIPTION: CT - Chest For Pe Angio - 05/31/2020 11:52 pm COMPARISON: CT chest April 29, 2020 CLINICAL HISTORY: [facility] MAIN SOB TECHNIQUE: CT images through the chest with IV contrast using the pulmonary embolus protocol. Multip lanar reformats. Automated exposure control was utilized on this examination as a dose lowering liza hnique. FINDINGS: Pulmonary arteries and vascular: Diagnostic quality bolus. No filling defects. Heart and mediastinum: Heart size is normal. A few mediastinal lymph nodes are likely reactive. Thyroid gland: Visualized portions are normal. Lungs: Moderate emphysema is present. Airways: No filling defects. No bronchiectasis. Pleura: No pneumothorax. No significant pleural effusion. Subphrenic structures: Partially visualized superior right renal scarring. Musculoskeletal and soft tissues: Within normal limits for age. IMPRESSION: 1. No evidence of pulmonary embolus or other acute chest process. 2. Moderate emphysema. Electronically signed by: Jonah Charles MD 05/31/2020 11:37 PM CDT Due to temporary technical issues with the PACS/Fluency reporting system, reports are being signed by the in house radiologist without review as a courtesy to ensure prompt reporting. The interpreting r adiologist is fully responsible for the content of the report.
[2020-06-01] MEDS: DULERA 200/5 (MOMETASONE/FORMOTEROL) INHALER IH SCH ×2 (11:15→20:31)
--- NOTE | 2020-06-01 12:35 | P.CNS ---
Date of Consult: 06/01/20 Primary Care Provider: Lane beverly Chief Complaint: COPD exacerbation History of Present Illness: patient is 49 years of age with a history of COPD anxiety presents with 2 weeks history of increasing dyspnea cough compliant with therapy shortness of breath on mild exertion recently had cataracts surgery this having issues apply and with therapy at home Allergies No Known Drug Allergies Allergy (Verified 12/25/19 22:10) Unknown No Known Allergies Allergy (Uncoded 12/25/19 22:10) Unknown Home Medications: Albuterol Neb [Proventil 0.083% Neb Soln] 2.5 mg IH TID PRN #90 amp 12/14/19 Albuterol Sulfate [Proair Hfa] 2 puff IH TID PRN #1 12/14/19 Apixaban [Eliquis] 5 mg PO BID #60 tablet 12/26/19 Bromfenac Sodium [Prolensa] 1 drop OP DAILY 06/01/20 Budesonide/Formoterol Fumarate [Symbicort 160-4.5 Mcg Inhaler] 2 puff IH BID 06/01/20 Ofloxacin Oph [Floxin 0.3% Otic Soln] 1 drop OT TID 06/01/20 Prednisol Acet 1% Opth [Pred Forte 1% Ophth Susp] 1 drop OP SEECOM 06/01/20 - Past Medical/Surgical History Diabetic: No -: COPD -: ANXIETY -: DVT -: HYSTERECTOMY -: cataract surgery R eye Psychosocial/ Personal History: Patient lives at home with her children is currently unemployed - Family History Mother Medical History: Lung disease, Other (see notes) Notes: OXYGEN DEPENDENT, SMOKER. depresssion Father Medical History: Lung disease, GI disease, Kidney disease Notes: SMOKER - Social History Smoking Status: Current every day smoker Alcohol use: No CD- Drugs: No Caffeine use: Yes Place of Residence: Home Review of Systems General: Weakness Respiratory: Cough, Shortness of Breath Physical Examination Temp Pulse Resp BP Pulse Ox 97.1 F 89 16 100/56 L 92 06/01/20 08:00 06/01/20 08:00 06/01/20 12:14 06/01/20 08:00 06/01/20 12:14 General: Alert, Oriented x3 Neck: Supple Respiratory: Expiratory wheezes Cardiovascular: No edema, Regular rate/rhythm Gastrointestinal: Normal bowel sounds, Soft and benign Laboratory Data (last 24 hrs) 05/31/20 18:30: PT 10.3, INR 0.90 05/31/20 18:30: WBC 8.10, Hgb 14.4, Hct 42.5, Plt Count 229 05/31/20 18:30: Sodium 144, Potassium 3.7, BUN 12, Creatinine 0.92, Glucose 91, Magnesium 2.1, Total Bilirubin 0.3, AST 21, ALT 15, Alkaline Phosphatase 81 - Problems (1) COPD exacerbation Onset Date: 05/20/17 Current Visit: No Status: Acute Plan: patient is 49 years of age admitted with COPD exacerbation labs reviewed sodium is a little elevated oxygenation satisfactory CT pulmonary angiogram is negative there is no evidence of DVT the may qualify for home O2 change to p.o. prednisone possible discharge home tomorrow no evidence of infection consider low-dose antibiotics is CRP is elevated
--- NOTE | 2020-06-01 14:43 | P.PN ---
Subjective Date of Service: 06/01/20 Primary Care Provider: Lnae beverly Chief Complaint: COPD exacerbation Subjective: Improving (Reports mild improvement in respiration rate this morning, still very short of breath and dyspneic when walking a few feet in her room) Review of Systems 10-point ROS is otherwise unremarkable Physical Examination - Vital Signs Temperature: 97.3 F Blood Pressure: 100/51 Pulse: 90 Respirations: 16 Pulse Ox (%): 92 - Studies Laboratory Data (last 24 hrs) 05/31/20 18:30: PT 10.3, INR 0.90 05/31/20 18:30: WBC 8.10, Hgb 14.4, Hct 42.5, Plt Count 229 05/31/20 18:30: Sodium 144, Potassium 3.7, BUN 12, Creatinine 0.92, Glucose 91, Magnesium 2.1, Total Bilirubin 0.3, AST 21, ALT 15, Alkaline Phosphatase 81 Assessment & Plan Physician Review Additional Text: Physical Exam General: Alert, In no apparent distress Respiratory: Bilateral expiratory wheezes Cardiovascular: Regular rate/rhythm, Normal S1 S2 Gastrointestinal: Soft, nontender, nondistended Musculoskeletal: No tenderness, no edema Integumentary: No rashes Neurological: Normal speech, Normal strength at 5/5 x4 extr, Normal affect Problem List Acute hypoxemic respiratory failure secondary to COPD exacerbation (acute on chronic) History of DVT -no evidence of infection, continue IV steroids, nebulizers, supplemental oxygen. -Pulmonology consulted -patient with known bed COPD/emphysema -CTA negative for PE, reports italic with was recently discontinued perioperativ gina. -ultrasound of lower extremities pending - reported intermittent pain/swelling in LLE Dispo: anticipate dc home in 24 hrs - Plan Assessment Acute hypoxic respiratory failure secondary to COPD exacerbation History of DVT Plan Acute hypoxic respiratory failure secondary to COPD exacerbation: Continue with IV steroids, inhalers, nebulizer treatments, supplemental oxygen as needed. Pulmonology consulted. Anticipate clinical improvement in the next 24-48 hr. Daily room air saturations. History of DVT: Patient was diagnosed with DVT to the right lower extremity approximately 1-2 months ago and was taking Eliquis, patient recently discontinued her Eliquis to have a procedure on her right eye, patient reports some intermittent pain and swelling to the left lower extremity as well, will obtain ultrasound bilateral lower extremity to rule out DVT. Discharge Plan: Home Plan to discharge in: 48 Hours Time Spent Managing Pts Care (In Minutes): 35
[2020-06-01] MEDS: predniSONE 20 MG TAB PO SCH (20:28)
[2020-06-02] MEDS: ALBUTEROL 2.5 MG/3 ML NEB SOL NEB SCH ×3 (02:17→13:35)
[2020-06-02] MEDS: IPRATROPIUM BROM 0.5MG/2.5ML NEB SCH ×3 (02:17→13:35)
[2020-06-02 04:47] LABS: Absolute Lymphocytes (CBC) 0.9 K/uL (0.7-4.9); Basophils % 0.1 % (0-1.3); Hematocrit 35.4 % (36.0-45.0); Lymphocytes % 10.3 % (15.3-44.8); MPV 8.5 fL (7.6-11.3); RBC Red Blood Cell Count 3.68 M/uL (3.86-4.86)
[2020-06-02 05:00] LABS: ALT/SGPT 13 U/L (12-78); AST/SGOT 12 U/L (15-37); Albumin 2.9 g/dL (3.4-5.0); Alkaline Phosphatase 62 U/L (45-117); BUN Blood Urea Nitrogen 18 mg/dL (7-18); Bicarbonate 29 mmol/L (21-32); C-Reactive Protein 5.93 mg/L (<3.00); Glucose Level 135 mg/dL (74-106); Magnesium 2.2 mg/dL (1.8-2.4); Potassium 4.8 mmol/L (3.5-5.1); Protein, Total 6.1 g/dL (6.4-8.2); Sodium Level 142 mmol/L (136-145)
[2020-06-02 05:09] LABS: Bilirubin Total < 0.1 mg/dL (0.2-1.0)
[2020-06-02] MEDS: HYDROCODONE/APAP 5/325 MG TAB PO PRN (07:09)
[2020-06-02] MEDS: BENZONATATE 100 MG CAP PO PRN (07:09)
[2020-06-02] MEDS: APIXABAN 5 MG TABLET PO SCH (07:10)
[2020-06-02] MEDS: predniSONE 20 MG TAB PO SCH (07:10)
[2020-06-02] MEDS: DULERA 200/5 (MOMETASONE/FORMOTEROL) INHALER IH SCH (07:14)
--- NOTE | 2020-06-02 07:40 | EKG ---
Test Date: 2020-05-31 Test Time: 18:38:50 Corporate Account Executive: ANDRA MEASUREMENT RESULTS: Intervals: Rate: 98 [place]: 134 QRSD: 74 QT: 354 QTc: 451 [place]: P: 85 [place]: 134 QRS: 81 T: 76 INTERPRETIVE STATEMENTS: Normal sinus rhythm Right atrial enlargement Borderline ECG Compared to ECG 04/29/2020 19:36:37 Atrial abnormality now present Sinus arrhythmia no longer present Electronically Signed On 06-02-20 07:35:07 CDT by Anthony Hyde
[2020-06-02] MEDS: [UNRECOGNIZED DRUG - OTHER] OTIC SCH (09:00)
[2020-06-02] MEDS: BROMFENAC SODIUM OPTH SCH (09:00)
--- NOTE | 2020-06-02 13:25 | P.DS ---
Admission Date: 05/31/20 Discharge Date: 06/02/20 Primary Care Provider: Lane beverly Disposition: ROUTINE DISCHARGE Discharge Condition: GOOD Reason for Admission: COPD exacerbation Consultations: Pulm - Dr. Barrera Procedures: CXR (05/31): No acute cardiopulmonary process. Chronic interstitial pattern matches comparison. Severity could potentially mask minimal interstitial edema or infiltrate. CTA Chest (05/31): 1. No evidence of pulmonary embolus or other acute chest process. 2. Moderate emphysema. Venous U/S (05/31): No DVT in either lower extremity. Thrombus in the right popliteal and posterior tibial veins December 2019 has resolved. Problem List Acute hypoxemic respiratory failure secondary to COPD exacerbation (acute on chronic) History of DVT Brief History of Present Illness: 49yo F, PMH: COPD, anxiety, DVT presents to ED for SOB, wheezing, and increased sputum production over a few days. Found to be hypoxic in the 80s upon EMS arrival. Workup consistent with acute COPD exacerbation. Hospital Course: She improved with treatment for COPD exacerbation. / bottles grew GPC which was felt to be due to contaminant - she was observed for 24hrs after results and remained afebrile / asymptomatic. Discharged with prednisone follow up with PCP in 3-5 days follow up with Dr. Barrera in ~2 weeks. Vital Signs/Physical Exam: Physical Exam General: Alert, In no apparent distress Respiratory: clear to auscultation bilaterally Cardiovascular: Regular rate/rhythm, Normal S1 S2 Gastrointestinal: Soft, nontender, nondistended Musculoskeletal: No tenderness, no edema Integumentary: No rashes Neurological: Normal speech, Normal strength at 5/5 x4 extr, Normal affect Temp Pulse Resp BP Pulse Ox 97.6 F 98 H 20 108/57 L 98 06/02/20 12:00 06/02/20 12:00 06/02/20 12:00 06/02/20 12:00 06/02/20 12:00 Laboratory Data at Discharge: WBC 9.30 K/uL (4.3-10.9) D 06/02/20 03:43 Hgb 11.9 g/dL (12.0-15.0) L 06/02/20 03:43 Hct 35.4 % (36.0-45.0) L 06/02/20 03:43 Plt Count 189 K/uL (152-406) 06/02/20 03:43 PT 10.3 SECONDS (9.5-12.5) 05/31/20 18:30 INR 0.90 05/31/20 18:30 Sodium 142 mmol/L (136-145) 06/02/20 03:43 Potassium 4.8 mmol/L (3.5-5.1) 06/02/20 03:43 BUN 18 mg/dL (7-18) 06/02/20 03:43 Creatinine 0.83 mg/dL (0.55-1.3) 06/02/20 03:43 Glucose 135 mg/dL (74-106) H 06/02/20 03:43 Magnesium 2.2 mg/dL (1.8-2.4) 06/02/20 03:43 Total Bilirubin < 0.1 mg/dL (0.2-1.0) L 06/02/20 03:43 AST 12 U/L (15-37) L 06/02/20 03:43 ALT 13 U/L (12-78) 06/02/20 03:43 Alkaline Phosphatase 62 U/L (45-117) 06/02/20 03:43 Home Medications: Albuterol Neb [Proventil 0.083% Neb Soln] 2.5 mg IH TID PRN #90 amp 12/14/19 Albuterol Sulfate [Proair Hfa] 2 puff IH TID PRN #1 12/14/19 Apixaban [Eliquis] 5 mg PO BID #60 tablet 12/26/19 Bromfenac Sodium [Prolensa] 1 drop OP DAILY 06/01/20 Budesonide/Formoterol Fumarate [Symbicort 160-4.5 Mcg Inhaler] 2 puff IH BID 06/01/20 Ofloxacin Oph [Floxin Otic 0.3%*] 1 drop OT TID 06/01/20 Prednisol Acet 1% Opth [Pred Forte 1%*] 1 drop OP SEECOM 06/01/20 Benzonatate [Tessalon Perle*] 100 mg PO TID PRN 7 Days #20 cap 06/02/20 predniSONE [Prednisone*] 20 mg PO BID 5 Days #10 tab 06/02/20 New Medications: predniSONE [Prednisone*] 20 mg PO BID 5 Days #10 tab Benzonatate [Tessalon Perle*] 100 mg PO TID PRN 7 Days #20 cap PRN Reason: Cough Physician Discharge Instructions: PROBLEM: COPD Exacerbation GOAL: Clear understanding of disease process INSTRUCTIONS: You were found to have a COPD exacerbation and improved with steroids and nebulizers. You did not have evidence of pneumonia / infection. You are discharged home with a prescription for prednisone. There was no evidence of a blood clot either. Follow up with Dr. Barrera in 1-2 weeks. Please call to schedule appointment. Resume home medications as previously prescribed. Diet: Regular Activity: As tolerated If you have any questions regarding your stay call [phone] If your symptoms worsen call 911 or go to the ED. Diet: Regular Activity: Ad flaca Followup: Nicholas Barrera MD [ACTIVE - CAN ADMIT] - (Call to make an appointment. ) OOT,OOT [Primary Care Provider] - Time spent managing pt's care (in minutes): 35
[2020-06-02 16:09] VITALS: BP 94/50; TEMP 98.1
[2020-06-02 16:11] VITALS: O2SAT 96
== END 2020-06-02 16:35 | disposition home or self-care (01) | DRG 190 ==
LOC: ER 17:50 → ERHOLD 22:37 → 4TH 23:16
PROVIDERS: ADMIT Hospitalist; ATTEND Hospitalist
DX: J44.1 Chronic obstructive pulmonary disease with (acute) exacerbation (principal); J96.01 Acute respiratory failure with hypoxia; F17.200 Nicotine dependence, unspecified, uncomplicated; Z86.718 Personal history of other venous thrombosis and embolism; Z90.710 Acquired absence of both cervix and uterus; Z79.52 Long term (current) use of systemic steroids; Z79.51 Long term (current) use of inhaled steroids; Z79.899 Other long term (current) drug therapy; Z79.01 Long term (current) use of anticoagulants; Z56.0 Unemployment, unspecified; Z20.822 Contact with and (suspected) exposure to COVID-19
CPT/HCPCS: 0240U; 36415; 71045; 71275; 80048; 80053; 80076; 83605; 83735; 83880; 84145; 84439; 84443; 84484; 85025; 85610; 86140; 87040; 87205; 93005; 93970; 94640; 99285; J2270; J2405; J2930; J3475; J7030; J7512; J7606; Q9967

== ENCOUNTER 2020-12-18 05:04 | Inpatient (IN) | payer OTHER ==
[2020-12-18 05:25] LABS: Absolute Lymphocytes (CBC) 2.8 K/uL (0.7-4.9); Basophils % 0.4 % (0-1.3); Hematocrit 42.9 % (36.0-45.0); Lymphocytes % 31.6 % (15.3-44.8); MPV 7.4 fL (7.6-11.3); RBC Red Blood Cell Count 4.49 M/uL (3.86-4.86)
[2020-12-18 05:45] LABS: ALT/SGPT 14 U/L (12-78); AST/SGOT 15 U/L (15-37); Albumin 3.4 g/dL (3.4-5.0); Alkaline Phosphatase 84 U/L (45-117); BUN Blood Urea Nitrogen 10 mg/dL (7-18); Bicarbonate 26 mmol/L (21-32); Bilirubin Direct < 0.1 mg/dL (0-0.2); Bilirubin Total 0.3 mg/dL (0.2-1.0); Glucose Level 105 mg/dL (74-106); NT PRO-BNP 312 pg/mL (<125); Potassium 3.4 mmol/L (3.5-5.1); Protein, Total 7.2 g/dL (6.4-8.2); Sodium Level 143 mmol/L (136-145); Troponin (Emerg Dept Use Only) < 0.02 ng/mL (0.0-0.045)
--- NOTE | 2020-12-18 05:57 | ER ---
Nurse's Notes [facility] Name: Roxanne Duran Age: 50 yrs Sex: Female : 1970 Arrival Date: 12/18/2020 Time: 05:10 Bed 13 Private MD: Diagnosis: COPD/ Chronic obstructive pulmonary disease with (acute) exacerbation Presentation: 12/18 05:11 Chief complaint: Patient states: SOB/Anxiety. Coronavirus screen: Vaccine status: df1 Patient reports being unvaccinated. Client denies travel out of the [place] in the last 14 days. At this time, the client does not indicate any symptoms associated with coronavirus-19. Ebola Screen: Patient negative for fever greater than or equal to 101.5 degrees Fahrenheit, and additional compatible Ebola Virus Disease symptoms Patient denies exposure to infectious person. Patient denies travel to an Ebola-affected area in the 21 days before illness onset. Initial Sepsis Screen: Does the patient meet any 2 criteria? No. Patient's initial sepsis screen is negative. Does the patient have a suspected source of infection? No. Patient's initial sepsis screen is negative. Risk Assessment: Do you want to hurt yourself or someone else? Patient reports no desire to harm self or others. Onset of symptoms was December 11, 2020. 05:11 Method Of Arrival: EMS: [facility] df1 05:11 Acuity: SHYLA 3 df1 Triage Assessment: 05:18 General: Appears distressed, uncomfortable, Behavior is calm, cooperative. Pain: Denies df1 pain. 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 - Social history:: Smoking status: Patient/guardian denies using tobacco, the patient reports quitting approximately 3 years ago, Patient/guardian denies using alcohol, street drugs, The patient lives with family. Screenin:18 Abuse screen: Denies threats or abuse. Nutritional screening: No deficits noted. df1 Tuberculosis screening: No symptoms or risk factors identified. Fall Risk None identified. Assessment: 05:56 Respiratory: Reports shortness of breath cough that is labored breathing since 2 days mr2 ago Airway is patent Trachea Respiratory effort is labored, Respiratory pattern is Breath sounds with crackles bilaterally. Breath sounds with wheezes the patient has moderate shortness of breath. 07:40 Reassessment: Patient appears in no apparent distress at this time. Patient and/or tw2 family updated on plan of care and expected duration. Pain level reassessed. Patient is alert, oriented x 3, equal unlabored respirations, skin warm/dry/pink. 07:49 Reassessment: Patient appears in no apparent distress at this time. Patient and/or tw2 family updated on plan of care and expected duration. Pain level reassessed. Patient is alert, oriented x 3, equal unlabored respirations, skin warm/dry/pink. pt taken to CT via stretcher on 2L nc with restaurant hourly team member Ro at this time. 08:03 Reassessment: pt back from CT at this time, NAD. tw2 Vital Signs: 05:11 BP 117 / 90; Pulse 102; Resp 28; Temp 98.2(O); Pulse Ox 98% on 2 lpm NC; Weight 87.54 df1 kg; Height 5 ft. 4 in. (162.56 cm); Pain 0/10; 07:40 BP 109 / 63; Pulse 92; Resp 24; Pulse Ox 99% on 2 lpm NC; tw2 05:11 Body Mass Index 33.13 (87.54 kg, 162.56 cm) df1 ED Course: 05:10 Patient arrived in ED. mw2 05:11 Ruben Bullock, STEVE is Primary Nurse. mr2 05:12 Natty Anderson MD is Attending Physician. sp3 05:13 Triage completed. df1 05:18 Arm band placed on right wrist. df1 05:18 No provider procedures requiring assistance completed. df1 05:19 Patient has correct armband on for positive identification. Placed in gown. Bed in low df1 position. Call light in reach. Side rails up X 1. 05:20 Inserted saline lock: 18 gauge in right antecubital area, using aseptic technique. ds4 Blood collected. 05:56 George Barnes MD is Hospitalizing Provider. sp3 06:08 XRAY Chest (1 view) In Process Unspecified. EDMS 07:10 Primary Nurse role handed off by Ruben Bullock, RN tw2 07:10 Kim Jackson, RN is Primary Nurse. tw2 08:54 Awaiting: unsuccessful attempt to call report at this time. STEVE Wren to call me back tw2 for report. 09:51 Patient admitted, IV remains in place. tw2 Administered Medications: 05:50 Drug: DuoNeb (albuterol 2.5 mg, ipratropium 0.5 mg) (3:1) (2.5 mg - 0.5 mg) 3 ml Route: mr2 Nebulizer; 05:50 Drug: DuoNeb (albuterol 2.5 mg, ipratropium 0.5 mg) (3:1) (2.5 mg - 0.5 mg) 3 ml Route: mr2 Nebulizer; 05:50 Drug: Rocephin (cefTRIAXone) 1 grams Route: IV; Rate: 1 bolus; Site: right antecubital; mr2 05:50 Drug: Zithromax (azithromycin) 500 mg Route: IVPB; Infused Over: 1 hrs; Site: right mr2 antecubital; 05:51 Drug: SOLU-Medrol (methylPrednisoLONE) 125 mg Route: IVP; Site: right antecubital; mr2 Outcome: 05:57 Decision to Hospitalize by Provider. sp3 09:51 Patient left the ED. tw2 09:51 Admitted to Med/surg accompanied by tech, via stretcher, with oxygen. tw2 09:51 Condition: stable 09:51 Instructed on the need for admit. Signatures: Dispatcher [employer] EDMS Lucas Mendiola ds4 Kim Jackson, STEVE RN tw2 Liz Lerner mw2 Natty Anderson MD MD sp3 Ruben Bullock, STEVE RN mr2 Moriah Lobato df1
--- NOTE | 2020-12-18 05:57 | EDPHYS ---
Physician Documentation [facility] Name: Roxanne Duran Age: 50 yrs Sex: Female : 1970 Arrival Date: 12/18/2020 Time: 05:10 Bed 13 Private MD: ED Physician Natty Anderson HPI: 12/18 05:21 This 50 yrs old Female presents to ER via EMS with complaints of copd. sp3 05:21 50-year-old female with history of COPD, anxiety, prior DVT now presents with 2 days of sp3 shortness of breath, cough, COPD exacerbation. Patient states that she had a similar episode a few weeks ago which when she had a negative Covid test and continued her home medications and self resolved. Patient seen at the clinic down in [place]. She is currently on Symbicort and proair HFA. She denies any fever, headache, neck pain, chest pain, back pain, abdominal pain, nausea, vomiting, diarrhea, known sick contacts, travel history, any other review of systems at this time. Remainder of systems are negative.. 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 - Social history:: Smoking status: Patient/guardian denies using tobacco, the patient reports quitting approximately 3 years ago, Patient/guardian denies using alcohol, street drugs, The patient lives with family. ROS: 05:22 Constitutional: Negative for fever, chills, and weight loss, Eyes: Negative for injury, sp3 pain, redness, and discharge, ENT: Negative for injury, pain, and discharge, Cardiovascular: Negative for chest pain, palpitations, and edema, Abdomen/GI: Negative for abdominal pain, nausea, vomiting, diarrhea, and constipation, MS/Extremity: Negative for injury and deformity, Skin: Negative for injury, rash, and discoloration, Neuro: Negative for headache, weakness, numbness, tingling, and seizure, Psych: Negative for depression, anxiety, suicide ideation, homicidal ideation, and hallucinations, Allergy/Immunology: Negative for hives, rash, and allergies, Endocrine: Negative for neck swelling, polydipsia, polyuria, polyphagia, and marked weight changes, Hematologic/Lymphatic: Negative for swollen nodes, abnormal bleeding, and unusual bruising. 05:22 All other systems are negative. Exam: 05:22 Constitutional: This is a well developed, well nourished patient who is awake, alert, sp3 and in no acute distress. Head/Face: Normocephalic, atraumatic. Eyes: Pupils equal round and reactive to light, extra-ocular motions intact. Lids and lashes normal. Conjunctiva and sclera are non-icteric and not injected. Cornea within normal limits. Periorbital areas with no swelling, redness, or edema. Neck: Trachea midline, no thyromegaly or masses palpated, and no cervical lymphadenopathy. Supple, full range of motion without nuchal rigidity, or vertebral point tenderness. No Meningismus. Chest/axilla: Normal chest wall appearance and motion. Nontender with no deformity. No lesions are appreciated. Cardiovascular: Regular rate and rhythm with a normal S1 and S2. No gallops, murmurs, or rubs. Normal PMI, no JVD. No pulse deficits. Abdomen/GI: Soft, non-tender, with normal bowel sounds. No distension or tympany. No guarding or rebound. No evidence of tenderness throughout. Skin: Warm, dry with normal turgor. Normal color with no rashes, no lesions, and no evidence of cellulitis. MS/ Extremity: Pulses equal, no cyanosis. Neurovascular intact. Full, normal range of motion. Neuro: Awake and alert, GCS 15, oriented to person, place, time, and situation. Cranial nerves II-XII grossly intact. Motor strength 5/5 in all extremities. Sensory grossly intact. Cerebellar exam normal. Normal gait. Psych: Awake, alert, with orientation to person, place and time. Behavior, mood, and affect are within normal limits. 05:22 Respiratory: Patient is mildly tachypneic and mildly tachycardic breathing at 26-28 times per minute pulse oxygenation 98% on 4 L nasal cannula. Patient has accessory muscle use, is moving less than normal air, and has both inspiratory and expiratory wheezing.. 05:27 ECG was reviewed by the Attending Physician. EKG demonstrates sinus tachycardia at 106 sp3 bpm with normal intervals, normal QRS, normal axis, nonspecific diffuse ST/T changes with no evidence of acute ischemia. Vital Signs: 05:11 BP 117 / 90; Pulse 102; Resp 28; Temp 98.2(O); Pulse Ox 98% on 2 lpm NC; Weight 87.54 df1 kg; Height 5 ft. 4 in. (162.56 cm); Pain 0/10; 07:40 BP 109 / 63; Pulse 92; Resp 24; Pulse Ox 99% on 2 lpm NC; tw2 05:11 Body Mass Index 33.13 (87.54 kg, 162.56 cm) df1 MDM: 05:12 Patient medically screened. sp3 05:24 Data reviewed: vital signs, nurses notes. ED course: [id number] female with COPD sp3 exacerbation. Her, laboratory values, EKG, and treat with Solu-Medrol IV, nebulizers, antibiotics, and admit patient to the hospital for observation.. 12/18 05:14 Order name: Basic Metabolic Panel sp3 12/18 05:14 Order name: CBC with Diff sp3 12/18 05:14 Order name: LFT's; Complete Time: 05:50 sp3 12/18 05:14 Order name: Magnesium; Complete Time: 05:50 sp3 12/18 05:14 Order name: NT PRO-BNP; Complete Time: 05:50 sp3 12/18 05:14 Order name: PT-INR; Complete Time: 05:35 sp3 12/18 05:14 Order name: Troponin (emerg Dept Use Only); Complete Time: 05:50 sp3 12/18 05:15 Order name: Basic Metabolic Panel; Complete Time: 05:50 EDMS 12/18 05:15 Order name: CBC with Automated Diff; Complete Time: 05:35 EDMS 12/18 05:19 Order name: COVID-19 (Coronavirus) Document "Date of Onset" if Symptomatic bb 12/18 05:28 Order name: SARS-COV-2 RT PCR EDMS 12/18 07:03 Order name: D-Dimer EDMS 12/18 07:03 Order name: T4 Free EDMS 12/18 05:14 Order name: XRAY Chest (1 view) sp3 12/18 05:14 Order name: EKG; Complete Time: 05:15 sp3 12/18 05:14 Order name: Cardiac monitoring; Complete Time: 05:20 sp3 12/18 05:14 Order name: EKG - Nurse/Tech; Complete Time: 05:20 sp3 12/18 05:14 Order name: IV Saline Lock; Complete Time: 05:14 sp3 12/18 05:14 Order name: Labs collected and sent; Complete Time: 05:14 sp3 12/18 05:14 Order name: O2 Per Protocol; Complete Time: 05:14 sp3 12/18 06:58 Order name: CONS Physician Consult EDMS 12/18 07:03 Order name: Thyroid Stimulating Hormone EDMS 12/18 07:03 Order name: Chest For Pe Angio EDMS 12/18 07:03 Order name: Regular EDMS 12/18 05:14 Order name: O2 Sat Monitoring; Complete Time: 05:15 sp3 Administered Medications: 05:50 Drug: DuoNeb (albuterol 2.5 mg, ipratropium 0.5 mg) (3:1) (2.5 mg - 0.5 mg) 3 ml Route: mr2 Nebulizer; 05:50 Drug: DuoNeb (albuterol 2.5 mg, ipratropium 0.5 mg) (3:1) (2.5 mg - 0.5 mg) 3 ml Route: mr2 Nebulizer; 05:50 Drug: Rocephin (cefTRIAXone) 1 grams Route: IV; Rate: 1 bolus; Site: right antecubital; mr2 05:50 Drug: Zithromax (azithromycin) 500 mg Route: IVPB; Infused Over: 1 hrs; Site: right mr2 antecubital; 05:51 Drug: SOLU-Medrol (methylPrednisoLONE) 125 mg Route: IVP; Site: right antecubital; mr2 Disposition Summary: 12/18/20 05:57 Hospitalization Ordered Hospitalization Status: Observation sp3 Provider: George Barnes sp3 Location: Telemetry/MedSurg (observation) sp3 Condition: Fair sp3 Problem: an acute exacerbation sp3 Symptoms: have worsened sp3 Bed/Room Type: Standard sp3 Room Assignment: 230(12/18/20 08:47) eb Diagnosis - COPD/ Chronic obstructive pulmonary disease with (acute) exacerbation sp3 Forms: - Medication Reconciliation Form sp3 - SBAR form sp3 Signatures: Dispatcher [employer] EDMS Edwin Mata FNP-C FNP-Cla1 Joanne Molina Setul, MD MD sp3 Ruben Bullock RN RN mr2 Moriah Lobato df1 Corrections: (The following items were deleted from the chart) 05:28 05:19 CORONAVIRUS ordered. EDMS EDMS 08:47 05:57 sp3 eb
[2020-12-18] MEDS ORDERED: AZITHROMYCIN 500 MG INJ IVPB ONE (06:34)
[2020-12-18] MEDS ORDERED: NA CHLORIDE 0.9% 250 ML ONE (06:34)
[2020-12-18] MEDS ORDERED: CEFTRIAXONE 1000 MG/VIAL ONE (06:34)
[2020-12-18] MEDS ORDERED: IPRATROPIUM BROM 0.5MG/2.5ML ONE (06:38)
[2020-12-18] MEDS ORDERED: ALBUTEROL 2.5 MG/3 ML NEB SOL ONE ×2 (06:39→06:45)
[2020-12-18] MEDS ORDERED: ALBUTEROL 2.5 MG/3 ML NEB SOL NEB PRN (06:58)
[2020-12-18] MEDS ORDERED: LORazepam 2 MG/ML VIAL IV ONE (06:58)
[2020-12-18] MEDS ORDERED: ONDANSETRON 4 MG/2 ML VIAL IV PRN (06:58)
[2020-12-18] MEDS ORDERED: METHYLPREDNISOLONE 125 MG INJ IV SCH (07:00)
[2020-12-18] MEDS ORDERED: METHYLPREDNISOLONE 125 MG INJ ONE (07:06)
--- NOTE | 2020-12-18 07:10 | P.HP ---
Certification for Inpatient Patient admitted to: Inpatient With expected LOS: >2 Midnights Practitioner: I am a practitioner with admitting privileges, knowledge of patient current condition, hospital course, and medical plan of care. Services: Services provided to patient in accordance with Admission requirements found in Title 42 Section 412.3 of the Code of Federal Regulations Patient History Date of Service: 12/18/20 Reason for admission: COPD Exacerbation, Hypoxia History of Present Illness: 50yo F, PMH: COPD, Depression/anxiety with panic attacks, h/o DVT off anticoagu lation. Presented to ED due to progressively worsening SOB, chest tightness, wheezing, not feeling well. Symptoms began ~3 weeks ago, was treated with levaquin and prednisone with moderate improvement, then symptoms worsened again ~1 week ago. Seen in clinic ~4-5 days ago and started on prednisone 20mg BID again. She has been compliant with her symbicort at home, and using nebs / albuterol rescue inhaler around the clock with no significant improvement. In the ED, she was noted to be hypoxic down to low 80s% on room air, tachypneic, and tachycardic. Blood work rather unremarkable. ER physician requested admission for further evaluation/treatment. Patient states she stopped taking Eliquis after ~2-3 months on her own. She was told she probably won't need it for long and decided to stop once she was better. Unknown if DVT was provoked or not. Allergies No Known Drug Allergies Allergy (Verified 12/25/19 22:10) Unknown No Known Allergies Allergy (Uncoded 12/25/19 22:10) Unknown Home Medications: Albuterol Neb [Proventil 0.083% Neb Soln] 2.5 mg IH TID PRN #90 amp 12/14/19 Albuterol Sulfate [Proair Hfa] 2 puff IH TID PRN #1 12/14/19 Apixaban [Eliquis] 5 mg PO BID #60 tablet 12/26/19 Bromfenac Sodium [Prolensa] 1 drop OP DAILY 06/01/20 Budesonide/Formoterol Fumarate [Symbicort 160-4.5 Mcg Inhaler] 2 puff IH BID 06/01/20 Ofloxacin Oph [Floxin Otic 0.3%*] 1 drop OT TID 06/01/20 Prednisol Acet 1% Opth [Pred Forte 1%*] 1 drop OP SEECOM 06/01/20 Benzonatate [Tessalon Perle*] 100 mg PO TID PRN 7 Days #20 cap 06/02/20 predniSONE [Prednisone*] 20 mg PO BID 5 Days #10 tab 06/02/20 - Past Medical/Surgical History Diabetic: No -: COPD -: ANXIETY -: DVT -: HYSTERECTOMY -: cataract surgery R eye Psychosocial/ Personal History: Patient lives at home with her children is currently unemployed - Family History Mother -: Lung disease, Other (see notes) Notes: OXYGEN DEPENDENT, SMOKER. depresssion Father -: Lung disease, GI disease, Kidney disease Notes: SMOKER - Social History Alcohol use: No CD- Drugs: No Caffeine use: Yes Review of Systems 10-point ROS is otherwise unremarkable Physical Examination - Physical Exam General: Alert, Cooperative, Moderate distress HEENT: Mucous membr. moist/pink, Sclerae nonicteric Respiratory: Diminished, Expiratory wheezes Cardiovascular: No edema, Other (sinus tachycardia (110s)) Gastrointestinal: Soft and benign, Non-distended, No tenderness Musculoskeletal: No erythema, No tenderness Integumentary: No rashes, No significant lesion Neurological: Normal speech, Normal strength at 5/5 x4 extr, Other (anxious) - Studies Laboratory Data (last 24 hrs) 12/18/20 05:20: PT 11.5, INR 1.00 12/18/20 05:20: WBC 9.00, Hgb 14.1, Hct 42.9, Plt Count 255 12/18/20 05:20: Sodium 143, Potassium 3.4 L, BUN 10, Creatinine 0.86, Glucose 105, Magnesium 2.0, Total Bilirubin 0.3, AST 15, ALT 14, Alkaline Phosphatase 84 Assessment and Plan - Advance Directives Does patient have a Living Will: No Does patient have a Durable POA for Healthcare: No Physician Review Additional Text: Problem List acute hypoxemic respiratory failure secondary to acute on chronic COPD exacerbation Depression / Anxiety with panic attacks h/o DVT, off anticoagulation patient is very tight, wheezing on exam, consistent with COPD exacerbation failed outpatient therapy, s/p 2 rounds of outpatient treatment continue steroids, nebs, inhalers h/o DVT, pt off anticoagulation, stopped on her own ~5-6 months ago currently no significant lower extremity swelling / pain unclear if DVT was provoked or not, but possibly unprovoked - she denies any high risk events prior to clot will obtain CTA chest to r/o PE, pt states she is too anxious right now to have this done, states laying flat worsens anxiety/panic and her breathing panic associated with feeling like she can't breathe currently SpO2 92% on 2L NC pulm consulted cover with lovenox 1mg/kg for now VTE: lovenox 1mg/kg BID Code: full Dispo: anticipate dc home in ~2 days Time Spent Managing Pts Care (In Minutes): 60
[2020-12-18] MEDS: IPRATROPIUM BROM 0.5MG/2.5ML NEB SCH ×3 (07:20→20:00)
[2020-12-18] MEDS: ALBUTEROL 2.5 MG/3 ML NEB SOL NEB SCH ×3 (07:20→20:00)
[2020-12-18 08:15] LABS: Thyroid Stimulating Hormone 2.53 uIU/mL (0.360-3.740)
--- NOTE | 2020-12-18 08:24 | RAD REPORT ---
EXAM DESCRIPTION: CT - Chest For Pe Angio - 12/18/2020 7:55 am CLINICAL HISTORY: Severe shortness of breath, history of recent DVT, history of COPD COMPARISON: Chest For Pe Angio dated 05/31/2020; Chest Single View dated 12/18/2020 TECHNIQUE: Dynamically enhanced 2 mm thick images of the chest were obtained during administration o f approximately 150mL Isovue 370 IV contrast. Coronal and oblique MIP reconstruction images were gene rated and reviewed. Exam utilizes a protocol to evaluate the pulmonary arterial tree. All CT scans are performed using dose optimization technique as appropriate and may include automated exposure control or mA/KV adjustment according to patient size. FINDINGS: No central pulmonary emboli no emboli seen peripherally to the segmental branch level. Far peripheral subsegmental branch assessment is more limited due to motion and contrast density. Periph eral emboli are not suspected. The aorta as imaged shows no acute or suspicious finding. No pericardial thickening or effusion. No infiltrate or mass in the lung parenchyma. No pleural effusion or pleural thickening. No mediastinal or hilar suspicious masses. No chest wall masses or abnormal axillary lymphadenopathy. IMPRESSION: No pulmonary emboli identified. No other significant or suspicious findings.
--- NOTE | 2020-12-18 08:27 | RAD REPORT ---
EXAM DESCRIPTION: RAD - Chest Single View - 12/18/2020 6:08 am CLINICAL HISTORY: COPD COMPARISON: Portable May 31 TECHNIQUE: AP portable chest image was obtained 12/18/2020 6:08 am . FINDINGS: No focal lung parenchymal process seen. Interstitial markings, accentuated in each base, a re not significantly different when adjusting for image technique differences. No failure or volume o verload findings. Heart and vasculature are normal. No measurable pleural effusion and no pneumothora x. No acute bony abnormality seen. No acute aortic findings suspected. IMPRESSION: Chronic interstitial lung disease pattern similar to May 31. No focal mass or consolidation.
[2020-12-18] MEDS ORDERED: LORazepam 2 MG/ML VIAL ONE (08:32)
[2020-12-18] MEDS ORDERED: ONDANSETRON 4 MG/2 ML VIAL ONE (08:32)
[2020-12-18] MEDS ORDERED: ENOXAPARIN 100 MG/ML SYR SQ SCH (09:00)
--- NOTE | 2020-12-18 09:52 | RAD REPORT ---
EXAM DESCRIPTION: US - Extrem Venous W Compress Max - 12/18/2020 9:40 am CLINICAL HISTORY: h/o DVT, evalleg pain and swelling COMPARISON: May 2020 TECHNIQUE: Real-time sonographic evaluation of the bilateral lower extremity common femoral, superfi cial femoral, popliteal and posterior tibial veins was performed. FINDINGS: Normal compressibility, flow augmentation, phasic flow and spontaneous flow are identified in the left and right lower extremity common femoral, superficial femoral, popliteal and posterior t ibial veins. No intraluminal filling defects seen. IMPRESSION: No DVT in either lower extremity.
[2020-12-18 13:28] VITALS: BMI 33.1
[2020-12-18] MEDS ORDERED: ENOXAPARIN 40 MG/0.4 ML SQ SCH (14:00)
[2020-12-18] MEDS: LORAZEPAM 0.5 MG TABLET PO PRN (17:59)
[2020-12-18] MEDS: SYMBICORT IH SCH (20:36)
[2020-12-18] MEDS: DOCUSATE NA 100 MG CAP PO SCH (20:36)
[2020-12-18] MEDS: METHYLPREDNISOLONE 125 MG INJ IV SCH (20:37)
[2020-12-18] MEDS ORDERED: POTASSIUM CL SA 10 MEQ TAB PO ONE (21:00)
[2020-12-19] MEDS: ALBUTEROL 2.5 MG/3 ML NEB SOL NEB SCH ×4 (02:00→20:20)
[2020-12-19] MEDS: IPRATROPIUM BROM 0.5MG/2.5ML NEB SCH ×4 (02:00→20:20)
[2020-12-19] MEDS: LORAZEPAM 0.5 MG TABLET PO PRN ×2 (02:40→16:03)
[2020-12-19 03:42] LABS: Albumin 3.4 g/dL (3.4-5.0); Bilirubin Total 0.2 mg/dL (0.2-1.0); Magnesium 2.4 mg/dL (1.8-2.4); Potassium 4.5 mmol/L (3.5-5.1); Protein, Total 7.2 g/dL (6.4-8.2)
[2020-12-19 03:52] LABS: Absolute Lymphocytes (CBC) 1.6 K/uL (0.7-4.9); Basophils % 0.1 % (0-1.3); Hematocrit 42.2 % (36.0-45.0); Lymphocytes % 16.8 % (15.3-44.8); MPV 7.9 fL (7.6-11.3); RBC Red Blood Cell Count 4.43 M/uL (3.86-4.86)
--- NOTE | 2020-12-19 06:23 | P.PN ---
Date of Service: 12/19/20 Subjective: Improving, still requiring 3 L nasal cannula Continues with anxiety, occasionally feeling like she cannot breathe Overall feels better ROS: 10 point ROS as noted above, otherwise negative Physical exam GEN: Alert, oriented, NAD HEENT: Normal conjunctiva, sclera anicteric CV: Regular rate and rhythm, no edema Pulm: Mild respirations on 3 L nasal cannula, bilateral expiratory wheeze ABD: Soft, nontender, nondistended MSK: No joint tenderness Integumentary: No rashes Neuro: Normal speech, anxious Problem List acute hypoxemic respiratory failure secondary to acute on chronic COPD exacerbation Depression / Anxiety with panic attacks h/o DVT, off anticoagulation failed outpatient therapy, s/p 2 rounds of outpatient treatment continue steroids, nebs, inhalers h/o DVT, pt off anticoagulation, stopped on her own ~5-6 months ago. currently no significant lower extremity swelling / pain CTA and U/S negative for PE/DVT, change full dose Lovenox to DVT prophylaxis CTA chest to rule out PE given history and presentation. Negative for PE/acute infectious process/effusions panic associated with feeling like she can't breathe currently SpO2 92% on 3L NC pulm consulted VTE: Lovenox Code: full Dispo: anticipate dc home in ~1-2 days Time Spent Managing Pts Care (In Minutes): 35
[2020-12-19] MEDS ORDERED: levoFLOXacin 750 MG TAB PO SCH (09:00)
[2020-12-19] MEDS ORDERED: levoFLOXacin 500 MG TAB PO SCH (09:00)
[2020-12-19] MEDS: SYMBICORT IH SCH ×2 (09:00→20:06)
[2020-12-19] MEDS: DOCUSATE NA 100 MG CAP PO SCH ×2 (09:46→20:04)
[2020-12-19] MEDS: METHYLPREDNISOLONE 125 MG INJ IV SCH ×2 (09:46→20:05)
[2020-12-19] MEDS: ENOXAPARIN 40 MG/0.4 ML SQ SCH (09:46)
--- NOTE | 2020-12-19 12:08 | P.CNS ---
Date of Consult: 12/19/20 Reason for Consult: COPD exacerbation Chief Complaint: COPD Exacerbation, Hypoxia History of Present Illness: Patient is 50 years of age with a history of COPD has been doing very well for the past month complaining of worsening shortness of breath was seen by another primary care doctor and was prescribed steroids again with no relief also compliant with her Symbicort at home found to be hypoxic tachypneic tachycardic less shortness of breath on mild exertion Allergies No Known Drug Allergies Allergy (Verified 12/25/19 22:10) Unknown No Known Allergies Allergy (Uncoded 12/25/19 22:10) Unknown Home Medications: Albuterol Neb [Proventil 0.083% Neb Soln] 2.5 mg IH TID PRN #90 amp 12/14/19 Albuterol Sulfate [Proair Hfa] 2 puff IH TID PRN #1 12/14/19 Budesonide/Formoterol Fumarate [Symbicort 160-4.5 Mcg Inhaler] 2 puff IH BID 06/01/20 Benzonatate [Tessalon Perle*] 100 mg PO TID PRN 7 Days #20 cap 06/02/20 predniSONE [Prednisone*] 20 mg PO BID 5 Days #10 tab 06/02/20 Levofloxacin [Levaquin] 1 tab PO DAILY 12/18/20 Venlafaxine HCl [Venlafaxine HCl ER] 1 cap PO DAILY 12/18/20 - Past Medical/Surgical History Diabetic: No -: COPD -: ANXIETY -: DVT -: HYSTERECTOMY -: cataract surgery R eye Psychosocial/ Personal History: Patient lives at home with her children is currently unemployed - Family History Mother Medical History: Lung disease, Other (see notes) Notes: OXYGEN DEPENDENT, SMOKER. depresssion Father Medical History: Lung disease, GI disease, Kidney disease Notes: SMOKER - Social History Smoking Status: Current every day smoker Alcohol use: No CD- Drugs: No Caffeine use: Yes Place of Residence: Home Review of Systems 10-point ROS is otherwise unremarkable General: Weakness Respiratory: Cough, Shortness of Breath Physical Examination Temp Pulse Resp BP Pulse Ox 97.7 F 92 H 22 H 107/53 L 90 L 12/19/20 08:00 12/19/20 08:00 12/19/20 08:00 12/19/20 08:00 12/19/20 08:00 General: Alert, Oriented x3, Mild distress Respiratory: Expiratory wheezes Cardiovascular: No edema, Normal pulses, Normal S1 S2 Gastrointestinal: Normal bowel sounds - Problems (1) COPD exacerbation Onset Date: 05/20/17 Current Visit: No Status: Acute Plan: Patient is 50 years of age admitted with COPD exacerbation has been doing well for the past month compliant with inhaler was treated outpatient with steroids no relief labs unremarkable CT angiogram no pulmonary emboli no infiltrate Trelegy works the best with insurance will not pay for it patient is hypoxic BNP is mildly elevated I ordered an echo patient quit smoking 3 years ago BNP is mildly elevated
[2020-12-19 14:25] LABS: Arterial Blood Carboxyhemoglob 1.2 % (0-1.5); Blood Gas Oxyhemoglobin 90.1 % (94-97)
[2020-12-20] MEDS: IPRATROPIUM BROM 0.5MG/2.5ML NEB SCH ×4 (01:50→20:00)
[2020-12-20] MEDS: ALBUTEROL 2.5 MG/3 ML NEB SOL NEB SCH ×4 (01:50→20:00)
[2020-12-20] MEDS: SYMBICORT IH SCH ×2 (09:00→20:52)
[2020-12-20] MEDS: METHYLPREDNISOLONE 125 MG INJ IV SCH (09:11)
[2020-12-20] MEDS: LORAZEPAM 0.5 MG TABLET PO PRN (09:11)
[2020-12-20] MEDS: ENOXAPARIN 40 MG/0.4 ML SQ SCH (09:11)
[2020-12-20] MEDS: DOCUSATE NA 100 MG CAP PO SCH ×2 (09:11→20:46)
--- NOTE | 2020-12-20 12:26 | ECHO ---
HEIGHT: 5 ft 4 in WEIGHT: 192 lb 15.883 oz DATE OF STUDY: 12/20/[address]: Nicholas Barrera MD 2-DIMENSIONAL: YES M.MODE: YES DOPPLER: YES COLOR FLOW: YES TDS: PORTABLE: DEFINITY: BUBBLE STUDY: DIAGNOSIS: SHORTNESS OF BREATH CARDIAC HISTORY: CATHERIZATION: NO SURGERY: NO PROSTHETIC VALVE: NO PACEMAKER: NO MEASUREMENTS (cm) DIASTOLIC (NORMALS) SYSTOLIC (NORMALS) IVSd 0.9 (0.6-1.2) LA Diam 3.2 (1.9-4.0) LVEF 66% LVIDd 4.6 (3.5-5.7) LVIDs 2.9 (2.0-3.5) %FS 36% LVPWd 1.0 (0.6-1.2) Ao Diam 1.9 (2.0-3.7) 2 DIMENSIONAL ASSESSMENT: RIGHT ATRIUM: NORMAL LEFT ATRIUM: NORMAL RIGHT VENTRICLE: NORMAL LEFT VENTRICLE: NORMAL TRICUSPID VALVE: NORMAL MITRAL VALVE: NORMAL PULMONIC VALVE: NORMAL AORTIC VALVE: NORMAL PERICARDIAL EFFUSION: NONE AORTIC ROOT: NORMAL LEFT VENTRICULAR WALL MOTION: NORMAL DOPPLER/COLOR FLOW: TRACE TRICUSPID REGURGITATION. NORMAL RIGHT VENTRICULAR SYSTOLIC PRESSURE COMMENTS: NORMAL LEFT VENTRICULAR SIZE AND FUNCTION. TRACE TRICUSPID REGURGITATION. NO WALL MOTION ABNORMALITY. NO EFFUSION. TECHNOLOGIST: AMADA CLINTON
--- NOTE | 2020-12-20 16:30 | P.PN ---
Subjective Date of Service: 12/20/20 Chief Complaint: COPD Exacerbation, Hypoxia No change still SOB on mild exertion Review of Systems Respiratory: Shortness of Breath Physical Examination - Vital Signs Temperature: 97.8 F Blood Pressure: 115/66 Pulse: 97 Respirations: 18 Pulse Ox (%): 93 - Physical Exam General: Alert, Oriented x3 Respiratory: Expiratory wheezes Cardiovascular: No edema, Regular rate/rhythm Assessment & Plan - Problems (Diagnosis) (1) COPD exacerbation Onset Date: 05/20/17 Current Visit: No Status: Acute Plan: COPD exerbation No change stillSOBOE trial fo Zithromax cultures neg/ Normal ECHO. Jack/ poss dc home am
[2020-12-20] MEDS: AZITHROMYCIN 250 MG TAB PO SCH (16:45)
--- NOTE | 2020-12-20 17:04 | P.PN ---
Subjective Date of Service: 12/20/20 Chief Complaint: COPD Exacerbation, Hypoxia Patient reports feeling better. She states she still feels very anxious whenever she experience shortness of breath. She is currently maintained on 2 L oxygen by nasal cannula. Physical Examination - Vital Signs Temperature: 97.8 F Blood Pressure: 115/66 Pulse: 97 Respirations: 18 Pulse Ox (%): 93 Assessment And Plan - Plan Physical exam GEN: Alert, oriented, NAD HEENT: Normal conjunctiva, sclera anicteric CV: Regular rate and rhythm, no edema Pulm: No labored breathing, diminished breath sounds bilaterally, bilateral mild scattered wheezes. ABD: Soft, nontender, nondistended MSK: No joint tenderness Integumentary: No rashes Neuro: Normal speech, anxious Problem List acute hypoxemic respiratory failure secondary to acute on chronic COPD exacerbation Depression / Anxiety with panic attacks h/o DVT, off anticoagulation Patient transition to oral prednisone. Continue nebs, inhalers h/o DVT, pt off anticoagulation, stopped on her own ~5-6 months ago. currently no lower extremity swelling or pain CTA PE and U/S negative for PE/DVT. Negative for PE/acute infectious process/effusions Anxiety associated with feeling of dyspnea. Patient is currently tolerating 2 L oxygen by nasal canula Pulmonary-Dr. Barrera input appreciated. Wean oxygen as tolerated. VTE: Lovenox Code: full
[2020-12-20] MEDS ORDERED: BENZONATATE 100 MG CAP PO PRN (17:05)
[2020-12-20] MEDS ORDERED: GUAIFENESIN/DM 5 ML UCUP PO PRN (17:05)
[2020-12-20] MEDS: predniSONE 20 MG TAB PO SCH (20:46)
[2020-12-20] MEDS: Budesonide/Formoterol Fumarate [Symbicort 160-4.5 Mcg Inhaler] 10.2 GM IH SCH (20:51)
[2020-12-20] MEDS: THEOPHYLLINE SR 100 MG TAB PO SCH (20:54)
[2020-12-20] MEDS ORDERED: POLYETHYL GLY 3350 17 GM/DOSE PO PRN (21:49)
[2020-12-21] MEDS: LORAZEPAM 0.5 MG TABLET PO PRN ×2 (02:00→10:18)
[2020-12-21] MEDS: IPRATROPIUM BROM 0.5MG/2.5ML NEB SCH ×4 (02:00→19:40)
[2020-12-21] MEDS: ALBUTEROL 2.5 MG/3 ML NEB SOL NEB SCH ×4 (02:00→19:40)
[2020-12-21 04:44] LABS: Absolute Lymphocytes (CBC) 1.8 K/uL (0.7-4.9); Basophils % 0.3 % (0-1.3); Hematocrit 40.4 % (36.0-45.0); Lymphocytes % 19.5 % (15.3-44.8); MPV 7.5 fL (7.6-11.3); RBC Red Blood Cell Count 4.27 M/uL (3.86-4.86)
[2020-12-21 05:05] LABS: Potassium 4.6 mmol/L (3.5-5.1)
[2020-12-21 05:18] LABS: Blood Morphology Comment NOT SEEN (NOT SEEN); Platelet Estimate ADEQ
[2020-12-21] MEDS: SYMBICORT IH SCH (09:00)
[2020-12-21] MEDS: Budesonide/Formoterol Fumarate [Symbicort 160-4.5 Mcg Inhaler] 10.2 GM IH SCH ×2 (09:00→19:36)
[2020-12-21] MEDS: ENOXAPARIN 40 MG/0.4 ML SQ SCH (09:27)
[2020-12-21] MEDS: AZITHROMYCIN 250 MG TAB PO SCH (09:28)
[2020-12-21] MEDS: VENLAFAXINE HCL XR 75 MG CAP PO SCH (09:28)
[2020-12-21] MEDS: THEOPHYLLINE SR 100 MG TAB PO SCH ×2 (09:28→19:35)
[2020-12-21] MEDS: predniSONE 20 MG TAB PO SCH (09:28)
[2020-12-21] MEDS: DOCUSATE NA 100 MG CAP PO SCH ×2 (09:28→19:35)
--- NOTE | 2020-12-21 15:24 | P.PN ---
Subjective Date of Service: 12/21/20 Chief Complaint: COPD Exacerbation, Hypoxia Patient seen today in respiratory distress, coughing spells. CO2 in blood chemistry is trending up. Physical Examination - Vital Signs Temperature: 98.6 F Blood Pressure: 118/76 Pulse: 84 Respirations: 18 Pulse Ox (%): 97 Assessment And Plan - Plan Physical exam GEN: Alert, oriented, moderate respiratory distress. HEENT: Normal conjunctiva, sclera anicteric CV: Regular rate and rhythm, no edema Pulm: No labored breathing, diminished breath sounds bilaterally, bilateral scattered wheezes. ABD: Soft, nontender, nondistended MSK: No joint tenderness Integumentary: No rashes Neuro: Normal speech, anxious Problem List acute hypoxemic respiratory failure secondary to acute on chronic COPD exacerbation Depression / Anxiety with panic attacks h/o DVT, off anticoagulation Changed oral prednisone to IV steroid due to worsening shortness of breath. Continue nebs, inhalers. Intermittent BiPAP due to increasing CO2. On oral Zithromax. h/o DVT, pt off anticoagulation, stopped on her own ~5-6 months ago. currently no lower extremity swelling or pain CTA PE and U/S negative for PE/DVT. Negative for PE/acute infectious process/effusions Anxiety associated with feeling of dyspnea. Seen by Pulmonary-Dr. Barrera. VTE: Lovenox Code: full
[2020-12-21] MEDS: METHYLPREDNISOLONE 40 MG INJ IV SCH ×2 (16:45→23:45)
[2020-12-22] MEDS: ALBUTEROL 2.5 MG/3 ML NEB SOL NEB SCH ×4 (02:05→20:00)
[2020-12-22] MEDS: IPRATROPIUM BROM 0.5MG/2.5ML NEB SCH ×4 (02:05→20:00)
[2020-12-22 05:13] LABS: Absolute Lymphocytes (CBC) 1.4 K/uL (0.7-4.9); Basophils % 0.4 % (0-1.3); Hematocrit 42.5 % (36.0-45.0); Lymphocytes % 17.9 % (15.3-44.8); MPV 7.4 fL (7.6-11.3); RBC Red Blood Cell Count 4.48 M/uL (3.86-4.86)
[2020-12-22] MEDS: VENLAFAXINE HCL XR 75 MG CAP PO SCH (08:07)
[2020-12-22] MEDS: THEOPHYLLINE SR 100 MG TAB PO SCH ×2 (08:07→19:27)
[2020-12-22] MEDS: ENOXAPARIN 40 MG/0.4 ML SQ SCH (08:07)
[2020-12-22] MEDS: METHYLPREDNISOLONE 40 MG INJ IV SCH ×2 (08:07→16:51)
[2020-12-22] MEDS: DOCUSATE NA 100 MG CAP PO SCH ×2 (08:07→19:27)
[2020-12-22] MEDS: AZITHROMYCIN 250 MG TAB PO SCH (08:07)
[2020-12-22] MEDS: Budesonide/Formoterol Fumarate [Symbicort 160-4.5 Mcg Inhaler] 10.2 GM IH SCH ×2 (08:13→21:00)
[2020-12-22] MEDS: LORAZEPAM 0.5 MG TABLET PO PRN ×2 (12:48→21:05)
--- NOTE | 2020-12-22 14:54 | P.PN ---
Subjective Date of Service: 12/22/20 Chief Complaint: COPD Exacerbation, Hypoxia Patient states she feels better today compared to yesterday. She tolerated BIPAP for several hours. She is currently tolerating 3 L NC. Physical Examination - Vital Signs Temperature: 97.9 F Blood Pressure: 119/62 Pulse: 97 Respirations: 18 Pulse Ox (%): 96 - Physical Exam General: Alert, Mild distress (with talking) Neck: JVD not distended Respiratory: Diminished, Expiratory wheezes (bilateral) Cardiovascular: No edema, Regular rate/rhythm, Normal S1 S2 Gastrointestinal: Soft and benign, Non-distended Musculoskeletal: No swelling Integumentary: No rashes Neurological: Normal strength at 5/5 x4 extr Assessment And Plan - Plan Physical exam GEN: Alert, oriented, mild respiratory distress. HEENT: Normal conjunctiva, sclera anicteric CV: Regular rate and rhythm, no edema Pulm: Mild dyspnea with talking, diminished breath sounds bilaterally, bilateral scattered wheezes. ABD: Soft, nontender, nondistended MSK: No joint tenderness Integumentary: No rashes Neuro: Normal speech, anxious Problem List acute hypoxemic respiratory failure secondary to acute on chronic COPD exacerbation Depression / Anxiety with panic attacks h/o DVT, off anticoagulation Continue IV steroid. Continue nebs, inhalers. Intermittent BiPAP due to increasing CO2. PAtient completed antibiotics. Sputum culture is negative. h/o DVT, pt off anticoagulation, stopped on her own ~5-6 months ago. currently no lower extremity swelling or pain CTA PE and U/S negative for PE/DVT. Negative for PE/acute infectious process/effusions Anxiety associated with feeling of dyspnea. Seen by Pulmonary-Dr. Barrera. Monitor for 1 more day for further improvement and wean down oxygen. Possible D/c in am. VTE: Lovenox Code: full
[2020-12-23] MEDS: METHYLPREDNISOLONE 40 MG INJ IV SCH ×2 (01:02→08:39)
[2020-12-23] MEDS: IPRATROPIUM BROM 0.5MG/2.5ML NEB SCH ×3 (02:00→13:52)
[2020-12-23] MEDS: ALBUTEROL 2.5 MG/3 ML NEB SOL NEB SCH ×3 (02:00→13:52)
[2020-12-23 06:18] LABS: Absolute Lymphocytes (CBC) 1.2 K/uL (0.7-4.9); Basophils % 0.4 % (0-1.3); Hematocrit 42.1 % (36.0-45.0); Lymphocytes % 14.8 % (15.3-44.8); MPV 7.5 fL (7.6-11.3); RBC Red Blood Cell Count 4.45 M/uL (3.86-4.86)
[2020-12-23 06:34] LABS: Potassium 4.6 mmol/L (3.5-5.1)
[2020-12-23] MEDS: DOCUSATE NA 100 MG CAP PO SCH (08:39)
[2020-12-23] MEDS: VENLAFAXINE HCL XR 75 MG CAP PO SCH (08:39)
[2020-12-23] MEDS: THEOPHYLLINE SR 100 MG TAB PO SCH (08:39)
[2020-12-23] MEDS: ENOXAPARIN 40 MG/0.4 ML SQ SCH (08:40)
[2020-12-23] MEDS: Budesonide/Formoterol Fumarate [Symbicort 160-4.5 Mcg Inhaler] 10.2 GM IH SCH (08:41)
[2020-12-23 09:03] VITALS: BP 110/60
--- NOTE | 2020-12-23 09:48 | P.PN ---
Subjective Date of Service: 12/23/20 Chief Complaint: COPD Exacerbation, Hypoxia No change still continues to remain short of breath on mild exertion still congested Review of Systems General: Weakness Respiratory: Cough, Shortness of Breath Physical Examination - Vital Signs Temperature: 96.9 F Blood Pressure: 110/60 Pulse: 85 Respirations: 18 Pulse Ox (%): 95 - Physical Exam General: Alert, Moderate distress Respiratory: Friction rub, Expiratory wheezes Cardiovascular: Regular rate/rhythm Assessment & Plan - Problems (Diagnosis) (1) COPD exacerbation Onset Date: 05/20/17 Current Visit: No Status: Acute Plan: COPD exacerbation maximum therapy still has dyspnea on mild exertion vital signs oxygenation stable labs reviewed change to p.o. prednisone no change with maximum therapy urine cultures negative
--- NOTE | 2020-12-23 10:57 | RAD REPORT ---
EXAM DESCRIPTION: RAD - Chest Single View - 12/23/2020 10:00 am CLINICAL HISTORY: COPD exacerbation Chest pain. COMPARISON: No comparisonsNo comparisonsChest Single View dated 12/18/2020; Chest Single View dated 05/31/2020; Chest Single View dated 04/29/2020; Chest Single View dated 03/04/2020 FINDINGS: Portable technique limits examination quality. The lungs are moderately emphysematous grossly clear. The heart is normal in size. No displaced fract ures. IMPRESSION: Moderate COPD. The USPSTF recommends annual screening for lung cancer with low-dose CT (LDCT) in adults aged 50 to 80 years who have a 20 pack-year smoking history and currently smoke or have quit within the past 15 years.
[2020-12-23 12:23] VITALS: TEMP 97.5
[2020-12-23 15:09] VITALS: O2SAT 95
[2020-12-23] MEDS: LORAZEPAM 0.5 MG TABLET PO PRN (15:12)
--- NOTE | 2020-12-23 15:13 | P.DS ---
Admission Date: 12/18/20 Discharge Date: 12/23/20 Disposition: ROUTINE DISCHARGE Discharge Condition: FAIR Reason for Admission: COPD Exacerbation, Hypoxia Brief History of Present Illness: 50yo F, PMH: COPD, Depression/anxiety with panic attacks, h/o DVT off anticoagulation. Presented to ED due to progressively worsening SOB, chest tightness, wheezing, not feeling well. Symptoms began ~3 weeks ago, was treated with levaquin and pre dnisone with moderate improvement, then symptoms worsened again ~1 week ago. Seen in clinic ~4-5 days ago and started on prednisone 20mg BID again. She has been compliant with her symbicort at home, and using nebs / albuterol rescue inhaler around the clock with no significant improvement. In the ED, she was noted to be hypoxic down to low 80s% on room air, tachypneic, and tachycardic. Blood work rather unremarkable. ER physician requested admission for further evaluation/treatment. Patient states she stopped taking Eliquis after ~2-3 months on her own. She was told she probably won't need it for long and decided to stop once she was better. Unknown if DVT was provoked or not. Hospital Course: Diagnosis acute hypoxemic respiratory failure secondary to acute on chronic COPD exacerbation Depression / Anxiety with panic attacks h/o DVT, off anticoagulation She is admitted to the medical floor and treated for COPD exacerbation with IV steroid, scheduled bronchodilators and antibiotics. She used BiPAP intermittently due to mild CO2 retention. PAtient completed antibiotics. Sputum culture was negative. h/o DVT, pt off anticoagulation, stopped on her own ~5-6 months ago. currently no lower extremity swelling or pain U/S negative for PE/DVT. CTA PE Negative for PE/acute infectious process/effusions She had anxiety associated with feeling of dyspnea. Seen by Pulmonary-Dr. Barrera. Her respiratory status improved with treatment. She was initially requiring higher flow oxygen but this was weaned down to baseline. Patient is clinically improved and deemed stable for discharge. She was using a pediatric nebulizer at home. New adult nebulizer prescribed for her. Vital Signs/Physical Exam: Temp Pulse Resp BP Pulse Ox 97.5 F 88 18 110/60 95 12/23/20 12:00 12/23/20 12:00 12/23/20 12:00 12/23/20 12:00 12/23/20 12:00 General: Alert, In no apparent distress, Oriented x3 HEENT: Mucous membr. moist/pink, Sclerae nonicteric Neck: Supple, JVD not distended Respiratory: Clear to auscultation bilaterally, Diminished Cardiovascular: No edema, Regular rate/rhythm, Normal S1 S2 Gastrointestinal: Soft and benign, Non-distended, No tenderness Musculoskeletal: No swelling Integumentary: No rashes Neurological: Normal strength at 5/5 x4 extr Laboratory Data at Discharge: WBC 8.20 K/uL (4.3-10.9) 12/23/20 05:54 Hgb 13.8 g/dL (12.0-15.0) 12/23/20 05:54 Hct 42.1 % (36.0-45.0) 12/23/20 05:54 Plt Count 249 K/uL (152-406) 12/23/20 05:54 PT 11.5 SECONDS (9.5-12.5) 12/18/20 05:20 INR 1.00 12/18/20 05:20 Sodium 140 mmol/L (136-145) 12/23/20 05:54 Potassium 4.6 mmol/L (3.5-5.1) 12/23/20 05:54 BUN 26 mg/dL (7-18) H 12/23/20 05:54 Creatinine 1.02 mg/dL (0.55-1.3) 12/23/20 05:54 Glucose 155 mg/dL (74-106) H 12/23/20 05:54 Magnesium 2.4 mg/dL (1.8-2.4) 12/19/20 02:56 Total Bilirubin 0.2 mg/dL (0.2-1.0) 12/19/20 02:56 AST 16 U/L (15-37) 12/19/20 02:56 ALT 14 U/L (12-78) 12/19/20 02:56 Alkaline Phosphatase 86 U/L (45-117) 12/19/20 02:56 Home Medications: Albuterol Sulfate [Proair Hfa] 2 puff IH TID PRN #1 12/14/19 Budesonide/Formoterol Fumarate [Symbicort 160-4.5 Mcg Inhaler] 2 puff IH BID 06/01/20 Venlafaxine HCl [Venlafaxine HCl ER] 1 cap PO DAILY 12/18/20 Albuterol Neb [Proventil 0.083% Neb Soln] 2.5 mg NEB [id number] PRN #120 amp 12/23/20 Benzonatate [Tessalon Perle*] 100 mg PO TID PRN #30 cap 12/23/20 Benzonatate [Tessalon Perle*] 100 mg PO TID PRN 7 Days #20 cap 12/23/20 Guaif/Dm [Robitussin Dm*] 10 ml PO Q6H PRN #30 ucup 12/23/20 Ipratropium Neb [Atrovent*] 0.5 mg NEB [id number] #120 amp 12/23/20 Theophylline [Jack-Dur*] 200 mg PO BID #60 tab 12/23/20 predniSONE [Deltasone] 20 mg PO DAILY #20 tab 12/23/20 New Medications: Ipratropium Neb [Atrovent*] 0.5 mg NEB [id number] #120 amp Albuterol Neb [Proventil 0.083% Neb Soln] 2.5 mg NEB [id number] PRN #120 amp PRN Reason: Shortness Of Breath predniSONE [Deltasone] 20 mg PO DAILY #20 tab Guaif/Dm [Robitussin Dm*] 10 ml PO Q6H PRN #30 ucup PRN Reason: Cough Benzonatate [Tessalon Perle*] 100 mg PO TID PRN #30 cap PRN Reason: Cough Benzonatate [Tessalon Perle*] 100 mg PO TID PRN 7 Days #20 cap PRN Reason: Cough Theophylline [Jack-Dur*] 200 mg PO BID #60 tab Diet: AHA Activity: Ad flaca Followup: Nicholas Barrera MD [ACTIVE - CAN ADMIT] - 1-2 Weeks NONE,NONE [Primary Care Provider] - 1-2 Weeks Time spent managing pt's care (in minutes): 38
[2020-12-23] MEDS ORDERED: predniSONE 20 MG TAB PO SCH (21:00)
== END 2020-12-23 17:17 | disposition home or self-care (01) | DRG 190 ==
LOC: ER 05:04 → ERHOLD 06:57 → 2ND 09:09
PROVIDERS: ADMIT Hospitalist; ATTEND Hospitalist
PROC: 5A09357 Assistance with Respiratory Ventilation, Less than 24 Consecutive Hours, Continuous Positive Airway Pressure (ICD-10-PCS; principal; 2020-12-18)
DX: J44.1 Chronic obstructive pulmonary disease with (acute) exacerbation (principal); J96.01 Acute respiratory failure with hypoxia; F41.8 Other specified anxiety disorders; F41.0 Panic disorder [episodic paroxysmal anxiety]; Z86.718 Personal history of other venous thrombosis and embolism; Z20.822 Contact with and (suspected) exposure to COVID-19
CPT/HCPCS: 36415; 71045; 71275; 80048; 80053; 80076; 82805; 83735; 83880; 84439; 84443; 84484; 85025; 85379; 85610; 87070; 87205; 93005; 93306; 93970; 94640; 94660; 94760; 96374; 96375; 99285; J0456; J1650; J2405; J2920; J2930; J7050; J7512; Q9967; U0003

== ENCOUNTER 2021-02-01 19:19 | Inpatient (IN) | payer OTHER ==
--- OUTSIDE RECORDS SUMMARY | 2021-02-01 19:22 | XMS REPORT | Continuity of Care Document ---
:1970 Author Organization [facility] t Address [address] [place] [address] Dr. Chávez[address] [place] [address] Care Team Providers Name Role Phone MARCOS BABCOCK Attending Clinician Unavailable Marcos Babcock MD Attending Clinician Earl BELCHER Attending Clinician Isidro Lechuga MD Attending Clinician Only, Test Attending Clinician Unavailable Pob, Lab Main Attending Clinician Unavailable Doctor Unassigned, Name Attending Clinician Unavailable Sophie Attending Clinician Unavailable MARCOS BABCOCK Admitting Clinician Unavailable Marcos Babcock MD Admitting Clinician Sophie Admitting Clinician Unavailable Payers Payer Name Policy Type Policy Number Effective Date Expiration Date [facility] [id number] 2020 00:00:00 Problems This patient has no known problems. Allergies, Adverse Reactions, Alerts Allergy Allergy Status Severity Reaction(s) Onset Inactive Treating Comm ents Source Name Type Date Date Clinician NO KNOWN Drug Active [facility] Medications This patient has no known medications. Procedures This patient has no known procedures. Encounters Start End Encounter Admission Attending Care Care Encounter Source Date/Time Date/Time Type Type Clinicians Facility Department ID 2020-12-18 Outpatient GINA MEIER OPH [id number] [facility] 11:16:09 MECHE yang [facility] 2020-11-24 Inpatient ER [facility] Vascular [id number] [facility] 10:40:01 [facility] 2020-05-26 2020-05-26 [facility] Sadiq [facility] [id number] 10:30:00 12:59:00 Encounter Meche Osorioton [id number] Marcos Rivera [id number] Surgical [id number] [place] 071 2020-05-26 2020-05-26 Surgery [facility] [id number] 12:12:00 12:48:00 [place] [id number] Nicole [id number] Surgical [id number] [place] 020 2020-05-26 2020-05-26 Anesthesia Bradley Elliott [facility] 1.2.840. [id number] 12:09:00 12:37:00 Event Meche Lechugaton [id number]. 10 Nicole [id number] Surgical [id number] [place] 020 2020-05-25 2020-05-25 Laboratory Only, [facility] [id number] 10:21:30 10:36:30 Only Test [place] [id number] Nicole [id number] [place] [id number] 353 2020-05-25 2020-05-25 [id number] [facility] 10:15:00 10:15:00 MECHE [facility] 2020-05-19 2020-05-19 Case Sealer Torie, [facility] [id number] 12:11:02 12:26:02 Visit Lab Main Mary [id number] Nicole [id number] Professio [id number] nal 353 [facility] 2020-05-19 2020-05-19 Out[facility] [id number] [facility] 12:15:00 12:15:00 [facility] 2020-05-19 2020-05-19 Orders Doctor ARNOLD [id number] 00:00:00 00:00:00 Only Unassigned, CHRIS [id number] [place] [facility] [id number] [id number] 2019-12-08 2019-12-08 Outpatient KEMAL Soliz [id number] [facility] 10:14:00 10:14:00 J[facility] Results Test Description Test Time Test Comments Results Result Comments Source - XR CHEST 2 V 2019-12-08 11:11:00 [facility] : 1970 Sex: F FAX: Jn Barton MD [phone] [place]: St: REG Name: NICOLERIVERAMADA [facility] : 1970 Age/S: 49/F [address] Unit #: [id number] Loc: [place] [address] Phys: Jn Barrios MD Acct: [id number] Dis Date: Status: REG CLI PHONE #: [phone] Exam Date: 12/08/2019 1111 FAX #: [phone] Reason: R06.02, SHORTNESS OF BREATH. EXAMS: CPT CODE: [id number] XR CHEST 2 V 57028 CLINICAL HISTORY: R06.02, SHORTNESS OF BREATH. COMPARISON: [...] M.D. CC: Jn Barrios MD Technologist: RT Gomez(Margi) Trnscrd Date/Time/By: 12/08/2019 (1111) : By: [email or web address] Orig Print D/T: S: 12/08/2019 (1418) PAGE 1 Signed Report
[2021-02-01 20:10] LABS: Absolute Lymphocytes (CBC) 5.3 K/uL (0.7-4.9); Basophils % 0.2 % (0-1.3); Hematocrit 42.2 % (36.0-45.0); Lymphocytes % 53.8 % (15.3-44.8); MPV 7.4 fL (7.6-11.3); RBC Red Blood Cell Count 4.34 M/uL (3.86-4.86)
--- NOTE | 2021-02-01 20:10 | RAD REPORT ---
EXAM DESCRIPTION: [place] Single View02/01/2021 7:57 pm CLINICAL HISTORY: Shortness of breath COMPARISON: May 2020 FINDINGS: Left base is hazy. Previous CT demonstrated this to represent epicardial fat. The lungs are hyperaerated. The lungs appear clear of acute infiltrate. The heart is normal size IMPRESSION: No acute abnormalities displayed
[2021-02-01] MEDS ORDERED: LORazepam 2 MG/ML VIAL ONE (20:14)
[2021-02-01 20:46] LABS: Protime INR 0.92
[2021-02-01 21:02] LABS: ALT/SGPT 15 U/L (12-78); AST/SGOT 12 U/L (15-37); Albumin 3.2 g/dL (3.4-5.0); Alkaline Phosphatase 73 U/L (45-117); BUN Blood Urea Nitrogen 16 mg/dL (7-18); Bicarbonate 30 mmol/L (21-32); Bilirubin Direct < 0.1 mg/dL (0-0.2); Bilirubin Total 0.3 mg/dL (0.2-1.0); Glucose Level 117 mg/dL (74-106); Magnesium 3.3 mg/dL (1.8-2.4); NT PRO-BNP 67 pg/mL (<125); Potassium 3.2 mmol/L (3.5-5.1); Protein, Total 7.2 g/dL (6.4-8.2); Sodium Level 146 mmol/L (136-145); Troponin (Emerg Dept Use Only) < 0.02 ng/mL (0.0-0.045)
[2021-02-01] MEDS ORDERED: Magnesium Sulfate 2gm IVPB 4 G/100 ML BAG IV ONE (21:09)
[2021-02-01] MEDS ORDERED: ALBUTEROL 2.5 MG/3 ML NEB SOL ONE (21:09)
--- NOTE | 2021-02-01 21:51 | EDPHYS ---
Physician Documentation [facility] Name: Roxanne Duran Age: 50 yrs Sex: Female : 1970 Arrival Date: 02/01/2021 Time: 19:23 Bed 18 Private MD: ED Physician Natty Anderson HPI: 02/01 19:50 This 50 yrs old Female presents to ER via EMS with complaints of Shortness of breath. 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 Patient was tested for Covid and flu approximately 1 week ago and was negative. She has been feeling bad for about 1 week and over the last 2 to 3 days her dyspnea has increased along with her wheezing. She has been taking her inhalers which have not significantly helped. Today her symptoms were bad enough where she activated EMS and they present here. EMS gave her 2 nebulizer treatments as well as Solu-Medrol 125 mg IV prior to arrival. Patient states that she has never been intubated for her COPD or required any assisted ventilation. Patient denies fever, back pain, headache, chest pain, abdominal pain, nausea, vomiting, diarrhea, weakness, rash, any other symptoms on ROS at this time. She does report some anxiety secondary to her breathing difficulties.. 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 - Social history:: Smoking status: . ROS: 19:51 Constitutional: Negative for fever, chills, and weight loss, Eyes: Negative for injury, sp3 pain, redness, and discharge, ENT: Negative for injury, pain, and discharge, Neck: Negative for injury, pain, and swelling, Cardiovascular: Negative for chest pain, palpitations, and edema, Abdomen/GI: Negative for abdominal pain, nausea, vomiting, diarrhea, and constipation, Back: Negative for injury and pain, MS/Extremity: Negative for injury and deformity, Skin: Negative for injury, rash, and discoloration, Neuro: Negative for headache, weakness, numbness, tingling, and seizure, Allergy/Immunology: Negative for hives, rash, and allergies, Endocrine: Negative for neck swelling, polydipsia, polyuria, polyphagia, and marked weight changes. 19:51 Respiratory: Positive for shortness of breath, wheezing. 19:51 All other systems are negative. Exam: 19:52 Constitutional: This is a well developed, well nourished patient who is awake, alert, sp3 but in mild to moderate distress secondary to breathing difficulty. Head/Face: Normocephalic, atraumatic. Eyes: Pupils equal round and reactive to light, extra-ocular motions intact. Lids and lashes normal. Conjunctiva and sclera are non-icteric and not injected. Cornea within normal limits. Periorbital areas with no swelling, redness, or edema. ENT: Nares patent. No nasal discharge, no septal abnormalities noted. External auditory canals are clear. Oropharynx with no redness, swelling, or masses, exudates, or evidence of obstruction, uvula midline. Mucous membranes moist. Neck: Trachea midline, no thyromegaly or masses palpated, and no cervical lymphadenopathy. Supple, full range of motion without nuchal rigidity, or vertebral point tenderness. No Meningismus. Chest/axilla: Normal chest wall appearance and motion. Nontender with no deformity. No lesions are appreciated. Abdomen/GI: Soft, non-tender, with normal bowel sounds. No distension or tympany. No guarding or rebound. No evidence of tenderness throughout. Back: No spinal tenderness. No costovertebral tenderness. Full range of motion. Skin: Warm, dry with normal turgor. Normal color with no rashes, no lesions, and no evidence of cellulitis. MS/ Extremity: Pulses equal, no cyanosis. Neurovascular intact. Full, normal range of motion. Neuro: Awake and alert, GCS 15, oriented to person, place, time, and situation. Cranial nerves II-XII grossly intact. Motor strength 5/5 in all extremities. Sensory grossly intact. Cerebellar exam normal. Normal gait. 19:52 Cardiovascular: Normal cardiac exam other than tachycardia.. 19:52 Respiratory: Patient in moderate respiratory distress, tachycardic, tachypneic. Pulse oxygenation on nebulizer treatment is 96% with a good waveform. Patient has inspiratory and expiratory wheezing and decreased airflow. Patient is in tripod position and speaks in 3-4 word sentences.. 21:09 ECG was reviewed by the Attending Physician. EKG demonstrates sinus tachycardia at 108 sp3 bpm with normal intervals, normal QRS, normal axis, nonspecific diffuse ST/T changes without evidence of ischemia. Leads V2 and V3 demonstrate motion artifact remainder of leads are normal. Vital Signs: 19:32 BP 155 / 84; Pulse 115; Resp 30 S; Temp 98(O); Pulse Ox 99% on 6% Nebulizer Mask; bb Weight 89.36 kg; Height 5 ft. 4 in. (162.56 cm) (R); 20:20 BP 109 / 72; Pulse 110; Resp 18; Pulse Ox 97% on CPAP; ld1 21:41 BP 125 / 70; Pulse 108; Resp 19; Pulse Ox 96% on CPAP; ld1 22:00 BP 130 / 91; Pulse 107; Resp 22; Pulse Ox 97% on CPAP; ld1 23:11 BP 136 / 86; Pulse 102; Resp 18; Pulse Ox 98% on CPAP; ld1 19:32 Body Mass Index 33.81 (89.36 kg, 162.56 cm) bb MDM: 19:35 Patient medically screened. sp3 19:53 Data reviewed: vital signs, nurses notes. ED course: 50-year-old female in moderate sp3 respiratory distress secondary to likely COPD exacerbation with possible overlying pneumonia. Secondary to her distress, we have activated respiratory therapy to place patient on BiPAP 12/5. Patient does not need intubation unless that modality does not succeed. 4 g of magnesium have also been ordered. Solu-Medrol was given by EMS. We will continue nebulizer treatments as well. Patient will be admitted to the hospital to the ICU versus floor depending on her course here in the ED. I do not believe patient is having acute coronary syndrome, sepsis, pulmonary embolism, vascular compromise, or any other critical findings at this time. Critical care time of 30 minutes will be attributed to this patient summarized by bedside direct care, chart review, and discussing with consultants.. 21:49 ED course: Patient is improved on BiPAP. Chest x-ray demonstrates no pneumonia. Will sp3 start IV antibiotics to cover for COPD exacerbation. Continue steroids inpatient. Patient will be admitted at this time. Only 2 g of magnesium were given.. 02/01 19:36 Order name: Basic Metabolic Panel sp3 02/01 19:36 Order name: CBC with Diff sp3 02/01 19:36 Order name: LFT's; Complete Time: 21:08 sp3 02/01 19:36 Order name: Magnesium; Complete Time: 21:08 sp3 02/01 19:36 Order name: NT PRO-BNP; Complete Time: 21:08 sp3 02/01 19:36 Order name: PT-INR; Complete Time: 21:08 sp3 02/01 19:36 Order name: Troponin (emerg Dept Use Only); Complete Time: 21:08 sp3 02/01 19:36 Order name: Basic Metabolic Panel; Complete Time: 21:08 EDMS 02/01 19:36 Order name: CBC with Automated Diff EDMS 02/01 20:53 Order name: Manual Differential EDMS 02/01 22:18 Order name: COVID-19 SARS RT PCR (Document "Date of Onset" if Symptomatic) ld1 02/01 22:27 Order name: CBC Smear Scan EDMS 02/01 23:41 Order name: SARS-COV-2 RT PCR EDMS 02/02 01:10 Order name: NT PRO-BNP EDMS 02/01 19:36 Order name: XRAY Chest (1 view); Complete Time: 21:08 3 02/01 19:36 Order name: EKG; Complete Time: 19:36 3 02/01 19:36 Order name: Cardiac monitoring; Complete Time: 19:36 3 02/01 19:36 Order name: EKG - Nurse/Tech; Complete Time: 20:42 sp3 02/01 19:36 Order name: IV Saline Lock; Complete Time: 20:12 sp3 02/01 19:36 Order name: Labs collected and sent; Complete Time: 20:12 sp3 02/01 19:36 Order name: O2 Per Protocol; Complete Time: 19:36 sp3 02/01 19:36 Order name: O2 Sat Monitoring; Complete Time: 19:36 sp3 02/01 19:36 Order name: BIPAP sp3 02/01 19:36 Order name: NPO; Complete Time: 20:11 sp3 12/15 22:06 Order name: CONS Physician Consult EDMS Administered Medications: 19:38 Drug: Magnesium Sulfate 4 grams Route: IVPB; Infused Over: 2 hrs; Site: left bb antecubital; 19:39 Drug: DuoNeb (albuterol 2.5 mg, ipratropium 0.5 mg) (3:1) (2.5 mg - 0.5 mg) 3 ml Route: bb Nebulizer; 20:16 Drug: Ativan (LORazepam) 1 mg Route: IVP; Site: right antecubital; ld1 20:17 Follow up: Response: No adverse reaction ld1 22:25 Drug: Rocephin (cefTRIAXone) 1 grams Route: IV; Rate: calculated rate; Site: left ld1 antecubital; 23:43 Follow up: Response: No adverse reaction ld1 22:44 Drug: Zithromax (azithromycin) 500 mg Route: IVPB; Infused Over: 1 hrs; Site: left ld1 antecubital; 23:43 Follow up: Response: No adverse reaction; IV Status: Completed infusion; IV Intake: ld1 250ml Disposition Summary: 02/01/21 21:50 Hospitalization Ordered Hospitalization Status: Inpatient Admission sp3 Provider: Miles Christianson sp3 Location: Telemetry/MedSur (Inpatient) sp3 Condition: Fair sp3 Problem: an acute exacerbation sp3 Symptoms: have worsened sp3 Bed/Room Type: Standard sp3 Room Assignment: [facility](02/01/21 23:47) eb1 Diagnosis - COPD/ Chronic obstructive pulmonary disease with (acute) exacerbation sp3 - Acute respiratory distress syndrome sp3 Forms: - Medication Reconciliation Form sp3 - SBAR form sp3 Signatures: Dispatcher [employer] EDMS Lorenza Davison RN RN bb Chelle Lund RN RN eb1 Milly Elias RN RN ld1 Natty Anderson MD MD sp3 Corrections: (The following items were deleted from the chart) 23:47 21:50 sp3 eb1
--- NOTE | 2021-02-01 21:51 | ER ---
Nurse's Notes [facility] Name: Roxanne Duran Age: 50 yrs Sex: Female : 1970 Arrival Date: 02/01/2021 Time: 19:23 Bed 18 Private MD: Diagnosis: COPD/ Chronic obstructive pulmonary disease with (acute) exacerbation;Acute respiratory distress syndrome Presentation: 02/01 19:32 Chief complaint: EMS states: they were toned out for report of pt in respiratory bb distress pt has hx of COPD admitted in December for the same symptoms. Coronavirus screen: difficulty breathing, Client presents with at least one sign or symptom that may indicate coronavirus-19. Standard/surgical mask placed on the client. Ebola Screen: No symptoms or risks identified at this time. Initial Sepsis Screen: Does the patient meet any 2 criteria? RR > 20 per min. HR > 90 bpm. Yes Does the patient have a suspected source of infection? Yes: Productive cough/pneumonia If YES to both, name of provider notified: Natty Anderson MD. Risk Assessment: Do you want to hurt yourself or someone else? Patient reports no desire to harm self or others. Onset of symptoms was February 01, 2021. 19:32 Method Of Arrival: EMS: [facility] bb 19:32 Acuity: SHYLA 2 bb 19:32 Care prior to arrival: Medication(s) given: Albuterol Neb x 2, Atrovent Neb x 2, Normal bb saline infusion, solu-medrol 125 mg IV initiated. 20 GA, in the left antecubital area. 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 - Social history:: Smoking status: . Screenin:20 Abuse screen: Denies threats or abuse. Denies injuries from another. Nutritional ld1 screening: No deficits noted. Tuberculosis screening: No symptoms or risk factors identified. Fall Risk None identified. Assessment: 20:20 General: Appears distressed, uncomfortable, Behavior is cooperative, agitated, anxious. ld1 Pain: Denies pain. Neuro: Level of Consciousness is awake, alert, obeys commands, Oriented to person, place, time, situation. Cardiovascular: Capillary refill < 3 seconds Patient's skin is warm and dry. Rhythm is sinus tachycardia. Respiratory: Airway is patent Respiratory effort is even, labored, Respiratory pattern is hyperventilation tachypnea. GI: No signs and/or symptoms were reported involving the gastrointestinal system. : No signs and/or symptoms were reported regarding the genitourinary system. EENT: No signs and/or symptoms were reported regarding the EENT system. Derm: No signs and/or symptoms reported regarding the dermatologic system. Musculoskeletal: No signs and/or symptoms reported regarding the musculoskeletal system. 21:41 Reassessment: Patient appears in no apparent distress at this time. Patient is alert, ld1 oriented x 3, equal unlabored respirations, skin warm/dry/pink. Pt reports feeling better. Denies pain at this time. Patient states feeling better. Vital Signs: 19:32 BP 155 / 84; Pulse 115; Resp 30 S; Temp 98(O); Pulse Ox 99% on 6% Nebulizer Mask; bb Weight 89.36 kg; Height 5 ft. 4 in. (162.56 cm) (R); 20:20 BP 109 / 72; Pulse 110; Resp 18; Pulse Ox 97% on CPAP; ld1 21:41 BP 125 / 70; Pulse 108; Resp 19; Pulse Ox 96% on CPAP; ld1 22:00 BP 130 / 91; Pulse 107; Resp 22; Pulse Ox 97% on CPAP; ld1 23:11 BP 136 / 86; Pulse 102; Resp 18; Pulse Ox 98% on CPAP; ld1 19:32 Body Mass Index 33.81 (89.36 kg, 162.56 cm) bb ED Course: 19:23 Patient arrived in ED. ld1 19:34 Natty Anderson MD is Attending Physician. sp3 19:36 Triage completed. 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 19:50 Initial lab(s) drawn, by me, sent to lab. Inserted saline lock: 22 gauge in right lt3 antecubital area, using aseptic technique. 19:56 XRAY Chest (1 view) In Process Unspecified. EDMS 20:20 Milly Elias, STEVE is Primary Nurse. ld1 20:20 Patient has correct armband on for positive identification. Placed in gown. Bed in low ld1 position. Call light in reach. Side rails up X2. detention deputy on. Pulse ox on. NIBP on. Door closed. Noise minimized. Warm blanket given. 20:20 No provider procedures requiring assistance completed. ld1 20:42 EKG done, by ED staff, reviewed by Natty Anderson MD. lt3 21:50 Miles Christianson is Hospitalizing Provider. sp3 23:02 COVID-19 SARS RT PCR (Document "Date of Onset" if Symptomatic) Sent. ld1 23:56 Patient admitted, IV remains in place. jh5 Administered Medications: 19:38 Drug: Magnesium Sulfate 4 grams Route: IVPB; Infused Over: 2 hrs; Site: left bb antecubital; 19:39 Drug: DuoNeb (albuterol 2.5 mg, ipratropium 0.5 mg) (3:1) (2.5 mg - 0.5 mg) 3 ml Route: bb Nebulizer; 20:16 Drug: Ativan (LORazepam) 1 mg Route: IVP; Site: right antecubital; ld1 20:17 Follow up: Response: No adverse reaction ld1 22:25 Drug: Rocephin (cefTRIAXone) 1 grams Route: IV; Rate: calculated rate; Site: left ld1 antecubital; 23:43 Follow up: Response: No adverse reaction ld1 22:44 Drug: Zithromax (azithromycin) 500 mg Route: IVPB; Infused Over: 1 hrs; Site: left ld1 antecubital; 23:43 Follow up: Response: No adverse reaction; IV Status: Completed infusion; IV Intake: ld1 250ml Intake: 23:43 IV: 250ml; Total: 250ml. ld1 Outcome: 21:50 Decision to Hospitalize by Provider. sp3 23:55 Admitted to Med/surg accompanied by tech, room 215, with oxygen, on monitor, with [facility] chart, Report called to STEVE Nichols 23:55 Condition: stable 23:55 Instructed on the need for admit. 12/16 01:54 Patient left the ED. bb Signatures: Dispatcher [employer] Lorenza Chu RN RN bb Milly Elias RN RN ld1 Natty Anderson MD MD sp3 Zuri Darden RN RN jh5 Reshma Green 3
[2021-02-01] MEDS ORDERED: NA CHLORIDE 0.9% 250 ML ONE (22:25)
[2021-02-01] MEDS ORDERED: AZITHROMYCIN 500 MG INJ IVPB ONE (22:25)
[2021-02-01] MEDS ORDERED: CEFTRIAXONE 1000 MG/VIAL ONE (22:25)
--- NOTE | 2021-02-01 22:26 | P.HP ---
Certification for Inpatient Patient admitted to: Inpatient With expected LOS: >2 Midnights Patient will require the following post-hospital care: None Practitioner: I am a practitioner with admitting privileges, knowledge of patient current condition, hospital course, and medical plan of care. Services: Services provided to patient in accordance with Admission requirements found in Title 42 Section 412.3 of the Code of Federal Regulations Patient History Date of Service: 02/01/21 Reason for admission: copd exacerbation History of Present Illness: Ms. Duran is a 50 yo M with COPD on 2.5L Home 02 who presents with one week of worsening SOB and HAYES. Reports cough productive of clear sputum, pleuritic chest pain and wheezing. She reports mild relief with inhalers. She was prescribed a course of prednisone by her PCP, but when her symptoms continued to worsen, her PCP told her to call EMS. Upon arrival to the ED, respiratory rate was in the 30s and she was tripoding. Symptoms improved after she was placed on BIPAP. She tested negative for COVID and Flu. She still smokes occasionally. K 3.2 Cr 1.48 GFR 37. Allergies No Known Drug Allergies Allergy (Verified 12/25/19 22:10) Unknown No Known Allergies Allergy (Uncoded 12/25/19 22:10) Unknown Home Medications: Albuterol Sulfate [Proair Hfa] 2 puff IH TID PRN #1 12/14/19 Budesonide/Formoterol Fumarate [Symbicort 160-4.5 Mcg Inhaler] 2 puff IH BID 06/01/20 Venlafaxine HCl [Venlafaxine HCl ER] 1 cap PO DAILY 12/18/20 Albuterol Neb [Proventil 0.083% Neb Soln] 2.5 mg NEB [id number] PRN #120 amp 12/23/20 Benzonatate [Tessalon Perle*] 100 mg PO TID PRN #30 cap 12/23/20 Benzonatate [Tessalon Perle*] 100 mg PO TID PRN 7 Days #20 cap 12/23/20 Guaif/Dm [Robitussin Dm*] 10 ml PO Q6H PRN #30 ucup 12/23/20 Ipratropium Neb [Atrovent*] 0.5 mg NEB [id number] #120 amp 12/23/20 Theophylline [Jack-Dur*] 200 mg PO BID #60 tab 12/23/20 predniSONE [Deltasone] 20 mg PO DAILY #20 tab 12/23/20 - Past Medical/Surgical History Diabetic: No -: COPD -: ANXIETY -: DVT -: HYSTERECTOMY -: cataract surgery R eye Psychosocial/ Personal History: Patient lives at home with her children is currently unemployed - Family History Mother -: Lung disease, Other (see notes) Notes: OXYGEN DEPENDENT, SMOKER. depresssion Father -: Lung disease, GI disease, Kidney disease Notes: SMOKER - Social History Smoking Status: Current some day smoker Alcohol use: No CD- Drugs: No Caffeine use: Yes Place of Residence: Home Review of Systems 10-point ROS is otherwise unremarkable General: Unremarkable Eyes: Unremarkable ENT: Unremarkable Respiratory: Cough, Shortness of Breath, SOB with Excertion, Pleuritic Pain, Sputum, Wheezing, As per HPI Cardiovascular: Unremarkable Gastrointestinal: Unremarkable Genitourinary: Unremarkable Musculoskeletal: Unremarkable Integumentary: Unremarkable Neurological: Unremarkable Lymphatics: Unremarkable Physical Examination - Physical Exam General: Alert HEENT: Atraumatic, PERRLA, Mucous membr. moist/pink, EOMI, Sclerae nonicteric Neck: Supple, 2+ carotid pulse no bruit, No LAD, Without JVD or thyroid abnormality Respiratory: Diminished, Expiratory wheezes Cardiovascular: No edema, Regular rate/rhythm (tachycardic), Normal S1 S2 Gastrointestinal: Normal bowel sounds, No tenderness Musculoskeletal: No tenderness Integumentary: No rashes Neurological: Normal speech, Normal strength at 5/5 x4 extr, Normal tone, Normal affect Lymphatics: No axilla or inguinal lymphadenopathy - Studies Laboratory Data (last 24 hrs) 02/01/21 19:50: PT 10.6, INR 0.92 02/01/21 19:50: WBC 9.80, Hgb 13.6, Hct 42.2, Plt Count 246 02/01/21 19:50: Sodium 146 H, Potassium 3.2 L, BUN 16, Creatinine 1.48 H, Glucose 117 H, Magnesium 3.3 H D, Total Bilirubin 0.3, AST 12 L, ALT 15, Alkaline Phosphatase 73 Assessment and Plan - Problems (Diagnosis) (1) RONALDO (acute kidney injury) Current Visit: Yes Status: Acute (2) Acute on chronic respiratory failure with hypoxia Current Visit: No Status: Acute (3) COPD exacerbation Onset Date: 05/20/17 Current Visit: No Status: Acute (4) Hypokalemia Current Visit: No Status: Acute - Plan pulm consulted, RT consulted wean BIPAP in the morning continue IV steroids, breathing treatments potassium replacement protocol reconcile and continue home medications DVT ppx Discharge Plan: Home Plan to discharge in: 72 Hours - Advance Directives Does patient have a Living Will: No Does patient have a Durable POA for Healthcare: No - Code Status/Comfort Care Code Status Assessed: Yes (full code ) Critical Care: No Time Spent Managing Pts Care (In Minutes): 70
[2021-02-01 22:27] LABS: Blood Morphology Comment NOT SEEN (NOT SEEN); Platelet Estimate ADEQ; White Blood Cell Scan OK (OK)
[2021-02-01] MEDS ORDERED: NA CHLORIDE 0.9% 1,000 ML IV SCH (23:00)
[2021-02-02] MEDS ORDERED: ACETAMINOPHEN 500 MG TAB PO PRN (00:19)
[2021-02-02] MEDS ORDERED: IPRATROPIUM BROM 0.5MG/2.5ML NEB PRN (00:19)
[2021-02-02] MEDS ORDERED: BENZONATATE 100 MG CAP PO PRN (00:19)
[2021-02-02] MEDS ORDERED: ONDANSETRON 4 MG/2 ML VIAL IV PRN (00:19)
[2021-02-02 02:07] VITALS: BMI 33.5
[2021-02-02] MEDS: HEPARIN 5000 UNIT/ML 1 ML VIAL SQ SCH ×2 (03:06→09:59)
[2021-02-02] MEDS: METHYLPREDNISOLONE 40 MG INJ IV SCH ×3 (03:07→15:59)
[2021-02-02] MEDS ORDERED: LORazepam 2 MG/ML VIAL IV ONE ×2 (04:13→18:00)
[2021-02-02 05:37] LABS: Absolute Lymphocytes (CBC) 0.6 K/uL (0.7-4.9); Basophils % 0.1 % (0-1.3); Hematocrit 38.2 % (36.0-45.0); Lymphocytes % 10.3 % (15.3-44.8); MPV 7.6 fL (7.6-11.3); RBC Red Blood Cell Count 3.96 M/uL (3.86-4.86)
[2021-02-02 05:54] LABS: Bilirubin Total 0.2 mg/dL (0.2-1.0); Magnesium 2.9 mg/dL (1.8-2.4); Phosphorus 2.7 mg/dL (2.5-4.9); Protein, Total 6.6 g/dL (6.4-8.2); Thyroid Stimulating Hormone 0.164 uIU/mL (0.360-3.740)
[2021-02-02 06:14] LABS: Blood Morphology Comment NOT SEEN (NOT SEEN); Platelet Estimate ADEQ; White Blood Cell Scan OK (OK)
[2021-02-02] MEDS ORDERED: PNEUMOCOCCAL VACCINE 0.5 ML IMVAC ONE (08:00)
[2021-02-02] MEDS ORDERED: INFLUENZA VACCINE (for 6+ mo) 0.5 ML DOSE IMVAC ONE (08:00)
--- NOTE | 2021-02-02 09:35 | P.PN ---
Subjective Date of Service: 02/02/21 Chief Complaint: copd exacerbation Patient seen on BiPAP. Resting comfortably. Physical Examination - Vital Signs Temperature: 97.6 F Blood Pressure: 128/77 Pulse: 88 Respirations: 18 Pulse Ox (%): 97 - Studies Laboratory Data (last 24 hrs) 02/01/21 19:50: PT 10.6, INR 0.92 02/01/21 19:50: WBC 9.80, Hgb 13.6, Hct 42.2, Plt Count 246 02/01/21 19:50: Sodium 146 H, Potassium 3.2 L, BUN 16, Creatinine 1.48 H, Glucose 117 H, Magnesium 3.3 H D, Total Bilirubin 0.3, AST 12 L, ALT 15, Alkaline Phosphatase 73 Assessment And Plan - Current Problems (Diagnosis) (1) RONALDO (acute kidney injury) Current Visit: Yes Status: Acute (2) COPD exacerbation Onset Date: 05/20/17 Current Visit: No Status: Acute (3) Chronic respiratory failure with hypoxia Current Visit: No Status: Acute (4) Hypercholesterolemia Current Visit: Yes Status: Acute - Plan Physical examination General:NAD HEENT: Sclerae nonicteric. On BiPAP. Neck: Supple, Without JVD. Respiratory: Diminished, mild scattered expiratory wheezes Cardiovascular: No edema, Regular rhythm, tachycardic, Normal S1 S2 Gastrointestinal: Normal bowel sounds, No tenderness Musculoskeletal: No tenderness Integumentary: No rashes Neurological: Normal speech, Normal strength at 5/5 x4 extr, Normal tone, Normal affect. Plan: Continue bronchodilators, IV steroid. Wean BiPAP as tolerated. Pulmonary consult Resume home medications. Gently hydrate with IV fluid for RONALDO. Monitor renal function. Start Lipitor for hypercholesterolemia.
--- NOTE | 2021-02-02 12:08 | P.CNS ---
Date of Consult: 02/02/21 Reason for Consult: Respiratory distress Chief Complaint: copd exacerbation History of Present Illness: Patient is 50 years of age with a history of COPD home oxygen has been doing very well complaining of worsening dyspnea compliant with her inhalers also on steroids came in with elevated respiratory rate is currently on BiPAP feeling somewhat better patient is on Symbicort which does seem to be helping Allergies No Known Drug Allergies Allergy (Verified 12/25/19 22:10) Unknown No Known Allergies Allergy (Uncoded 12/25/19 22:10) Unknown Home Medications: Budesonide/Formoterol Fumarate [Symbicort 160-4.5 Mcg Inhaler] 2 puff IH BID 06/01/20 Venlafaxine HCl [Venlafaxine HCl ER] 1 cap PO DAILY 12/18/20 Fluticasone/Umeclidin/Vilanter [Trelegy Ellipta 100-62.5-25] 1 puff PO DAILY 02/02/21 Montelukast Sodium [Singulair] 10 mg PO DAILY 02/02/21 - Past Medical/Surgical History Diabetic: No -: COPD -: ANXIETY -: DVT -: HYSTERECTOMY -: cataract surgery R eye Psychosocial/ Personal History: Patient lives at home with her children is currently unemployed - Family History Mother Medical History: Lung disease, Other (see notes) Notes: OXYGEN DEPENDENT, SMOKER. depresssion Father Medical History: Lung disease, GI disease, Kidney disease Notes: SMOKER - Social History Smoking Status: Current every day smoker Alcohol use: No CD- Drugs: No Caffeine use: Yes Place of Residence: Home Review of Systems 10-point ROS is otherwise unremarkable Respiratory: Shortness of Breath Physical Examination Temp Pulse Resp BP Pulse Ox 97.1 F 95 H 19 119/66 97 02/02/21 11:09 02/02/21 11:09 02/02/21 11:09 02/02/21 11:09 02/02/21 11:09 General: Alert, In no apparent distress, Oriented x3 Respiratory: Expiratory wheezes Cardiovascular: No edema, Normal S1 S2 Gastrointestinal: Normal bowel sounds, Soft and benign Laboratory Data (last 24 hrs) 02/01/21 19:50: PT 10.6, INR 0.92 02/01/21 19:50: WBC 9.80, Hgb 13.6, Hct 42.2, Plt Count 246 02/01/21 19:50: Sodium 146 H, Potassium 3.2 L, BUN 16, Creatinine 1.48 H, Glucose 117 H, Magnesium 3.3 H D, Total Bilirubin 0.3, AST 12 L, ALT 15, Alkaline Phosphatase 73 - Problems (1) COPD exacerbation Onset Date: 05/20/17 Current Visit: No Status: Acute Plan: Patient is 50 years of age admitted with COPD exacerbation history of recurrent exacerbation she was in the hospital in December this year renal function is improving chest x-ray shows hyperinflation trial of BiPAP add scheduled long- acting bronchodilators continue with steroid renal function is improving continue with IV fluid no clinical evidence of sepsis
[2021-02-02] MEDS: IPRATROPIUM BROM 0.5MG/2.5ML NEB SCH ×2 (14:23→20:30)
[2021-02-02] MEDS: VENLAFAXINE HCL XR 75 MG CAP PO SCH (15:59)
[2021-02-02] MEDS: ARFORMOTEROL TARTRATE 15 MCG/2 ML VIAL.NEB NEB SCH (20:30)
[2021-02-02] MEDS: ATORVASTATIN 20 MG TAB PO SCH (20:51)
[2021-02-03] MEDS: METHYLPREDNISOLONE 40 MG INJ IV SCH ×2 (00:39→10:11)
[2021-02-03] MEDS: IPRATROPIUM BROM 0.5MG/2.5ML NEB SCH ×4 (02:32→19:45)
[2021-02-03 05:53] LABS: Absolute Lymphocytes (CBC) 1.2 K/uL (0.7-4.9); Basophils % 0.4 % (0-1.3); Lymphocytes % 14.2 % (15.3-44.8); MPV 7.4 fL (7.6-11.3); RBC Red Blood Cell Count 3.82 M/uL (3.86-4.86)
[2021-02-03 06:14] LABS: Potassium 4.6 mmol/L (3.5-5.1)
[2021-02-03] MEDS: ARFORMOTEROL TARTRATE 15 MCG/2 ML VIAL.NEB NEB SCH ×2 (08:41→19:45)
[2021-02-03] MEDS ORDERED: Fluticasone/Umeclidin/Vilanter [Trelegy Ellipta 100-62.5-25] Blst.W.Dev IH SCH (09:00)
[2021-02-03] MEDS: VENLAFAXINE HCL XR 75 MG CAP PO SCH (10:11)
[2021-02-03] MEDS: MONTELUKAST 10 MG TAB PO SCH (10:11)
[2021-02-03] MEDS: ENOXAPARIN 40 MG/0.4 ML SQ SCH (10:11)
--- NOTE | 2021-02-03 11:40 | P.PN ---
Subjective Date of Service: 02/03/21 Chief Complaint: copd exacerbation Subjective: Improving (Patient is improving off BiPAP oxygenation satisfactory complains of dyspnea on mild exertion states that Symbicort is not effective) Review of Systems 10-point ROS is otherwise unremarkable General: Weakness Respiratory: Shortness of Breath Physical Examination - Vital Signs Temperature: 97.8 F Blood Pressure: 125/74 Pulse: 87 Respirations: 18 Pulse Ox (%): 97 - Physical Exam General: Alert, In no apparent distress, Oriented x3 Respiratory: Expiratory wheezes Cardiovascular: No edema, Regular rate/rhythm, Normal S1 S2 Gastrointestinal: Soft and benign Assessment And Plan - Current Problems (Diagnosis) (1) COPD exacerbation Onset Date: 05/20/17 Current Visit: No Status: Acute Plan: COPD exacerbation doing well oxygenation satisfactory physical therapy to ambulate patient patient states her Symbicort is not effective I have sent a prescription for Breztri titrate sat to 90%
[2021-02-03] MEDS: ALBUTEROL 2.5 MG/3 ML NEB SOL NEB PRN (14:15)
--- NOTE | 2021-02-03 15:23 | P.PN ---
Subjective Date of Service: 02/03/21 Chief Complaint: copd exacerbation Patient states she feels better today compared to yesterday. She used BiPAP last night. She is currently tolerating oxygen by nasal cannula. Physical Examination - Vital Signs Temperature: 97.9 F Blood Pressure: 114/58 Pulse: 91 Respirations: 16 Pulse Ox (%): 97 Assessment And Plan - Current Problems (Diagnosis) (1) RONALDO (acute kidney injury) Current Visit: Yes Status: Acute (2) COPD exacerbation Onset Date: 05/20/17 Current Visit: No Status: Acute (3) Chronic respiratory failure with hypoxia Current Visit: No Status: Acute (4) Hypercholesterolemia Current Visit: Yes Status: Acute - Plan Physical examination General:NAD HEENT: Sclerae nonicteric. On oxygen by nasal cannula. Neck: Supple, Without JVD. Respiratory: Diminished, mild scattered expiratory wheezes Cardiovascular: No edema, Regular rhythm, Normal S1 S2 Gastrointestinal: Normal bowel sounds, No tenderness Musculoskeletal: No tenderness Integumentary: No rashes Neurological: Normal speech, Normal strength at 5/5 x4 extr, Normal tone, Normal affect. Plan: Continue bronchodilators. Currently on oral prednisone. Pulmonary added Brovana. Wean BiPAP as tolerated. Pulmonary input appreciated. RONALDO resolved. IV fluid discontinued. Continue Lipitor for hypercholesterolemia.
[2021-02-03] MEDS: ATORVASTATIN 20 MG TAB PO SCH (20:38)
[2021-02-03] MEDS: predniSONE 20 MG TAB PO SCH (20:38)
[2021-02-03] MEDS: LORAZEPAM 0.5 MG TABLET PO PRN (22:35)
[2021-02-04] MEDS: IPRATROPIUM BROM 0.5MG/2.5ML NEB SCH ×4 (02:00→19:35)
[2021-02-04] MEDS: ARFORMOTEROL TARTRATE 15 MCG/2 ML VIAL.NEB NEB SCH ×2 (07:54→19:35)
[2021-02-04] MEDS: predniSONE 20 MG TAB PO SCH ×2 (10:46→20:33)
[2021-02-04] MEDS: VENLAFAXINE HCL XR 75 MG CAP PO SCH (10:46)
[2021-02-04] MEDS: MONTELUKAST 10 MG TAB PO SCH (10:46)
[2021-02-04] MEDS: levoFLOXacin 750 MG TAB PO SCH (10:47)
[2021-02-04] MEDS: ENOXAPARIN 40 MG/0.4 ML SQ SCH (10:47)
--- NOTE | 2021-02-04 12:16 | P.PN ---
Subjective Date of Service: 02/04/21 Chief Complaint: copd exacerbation Patient states she is gradually getting better. She is still requiring oxygen and short of breath with talking. She maintained her oxygen saturation with 2 L of oxygen with ambulation during physical therapy but she became very short of breath. Physical Examination - Vital Signs Temperature: 97.6 F Blood Pressure: 128/81 Pulse: 78 Respirations: 16 Pulse Ox (%): 99 Assessment And Plan - Current Problems (Diagnosis) (1) RONALDO (acute kidney injury) Current Visit: Yes Status: Acute (2) COPD exacerbation Onset Date: 05/20/17 Current Visit: No Status: Acute (3) Chronic respiratory failure with hypoxia Current Visit: No Status: Acute (4) Hypercholesterolemia Current Visit: Yes Status: Acute - Plan Physical examination General: NAD HEENT: Sclerae nonicteric. On oxygen by nasal cannula. Neck: Supple, Without JVD. Respiratory: Improved breath sounds, mild scattered expiratory wheezes Cardiovascular: No edema, Regular rhythm, Normal S1 S2 Gastrointestinal: Normal bowel sounds, No tenderness Musculoskeletal: No tenderness Integumentary: No rashes Neurological: Normal speech, Normal strength at 5/5 x4 extr, Normal tone, Normal affect. Plan: Continue bronchodilators. Currently on oral prednisone. Pulmonary added Brovana. Repeat chest x-ray. Patient reporting yellowish to greenish sputum production. Added Levaquin for infective bronchitis. BiPAP as needed Pulmonary input appreciated. RONALDO resolved. IV fluid discontinued. Continue Lipitor for hypercholesterolemia. Monitor for 1 more day and wean off oxygen as tolerated. Patient at baseline uses oxygen only on as-needed basis and during the night.
[2021-02-04] MEDS: LORAZEPAM 0.5 MG TABLET PO PRN ×2 (13:52→22:35)
[2021-02-04] MEDS: ALBUTEROL 2.5 MG/3 ML NEB SOL NEB PRN (19:35)
[2021-02-04] MEDS: ATORVASTATIN 20 MG TAB PO SCH (20:33)
[2021-02-05] MEDS: ALBUTEROL 2.5 MG/3 ML NEB SOL NEB PRN ×2 (01:45→12:40)
[2021-02-05] MEDS: IPRATROPIUM BROM 0.5MG/2.5ML NEB SCH ×4 (01:45→19:45)
[2021-02-05 06:16] LABS: Absolute Lymphocytes (CBC) 2.2 K/uL (0.7-4.9); Basophils % 0.6 % (0-1.3); Hematocrit 39.2 % (36.0-45.0); Lymphocytes % 25.5 % (15.3-44.8); MPV 7.5 fL (7.6-11.3); RBC Red Blood Cell Count 4.09 M/uL (3.86-4.86)
[2021-02-05 06:34] LABS: Magnesium 2.5 mg/dL (1.8-2.4); Phosphorus 4.4 mg/dL (2.5-4.9); Potassium 4.3 mmol/L (3.5-5.1)
[2021-02-05] MEDS: ARFORMOTEROL TARTRATE 15 MCG/2 ML VIAL.NEB NEB SCH ×2 (08:01→19:45)
[2021-02-05] MEDS: levoFLOXacin 750 MG TAB PO SCH (08:11)
[2021-02-05] MEDS: MONTELUKAST 10 MG TAB PO SCH (08:11)
[2021-02-05] MEDS: VENLAFAXINE HCL XR 75 MG CAP PO SCH (08:11)
[2021-02-05] MEDS: predniSONE 20 MG TAB PO SCH ×2 (08:11→22:07)
[2021-02-05] MEDS: ENOXAPARIN 40 MG/0.4 ML SQ SCH (08:11)
--- NOTE | 2021-02-05 08:23 | RAD REPORT ---
EXAM DESCRIPTION: [place] Single View02/05/2021 7:04 am CLINICAL HISTORY: Hypoxia COMPARISON: February 01, 2021 FINDINGS: Lungs are hyperaerated. The The lungs appear clear of acute infiltrate. The heart is normal size IMPRESSION: No acute abnormalities displayed
--- NOTE | 2021-02-05 12:06 | P.PN ---
Subjective Date of Service: 02/05/21 Chief Complaint: copd exacerbation Patient states she feels much better today. She still has intermittent cough. Physical Examination - Vital Signs Temperature: 96.9 F Blood Pressure: 109/49 Pulse: 71 Respirations: 17 Pulse Ox (%): 98 Assessment And Plan - Current Problems (Diagnosis) (1) RONALDO (acute kidney injury) Current Visit: Yes Status: Acute (2) COPD exacerbation Onset Date: 05/20/17 Current Visit: No Status: Acute (3) Chronic respiratory failure with hypoxia Current Visit: No Status: Acute (4) Hypercholesterolemia Current Visit: Yes Status: Acute - Plan Physical examination General: NAD HEENT: Sclerae nonicteric. On oxygen by nasal cannula. Neck: Supple, Without JVD. Respiratory: Improved breath sounds, no wheezes. Cardiovascular: No edema, Regular rhythm, Normal S1 S2 Gastrointestinal: Normal bowel sounds, No tenderness Musculoskeletal: No tenderness Integumentary: No rashes Neurological: Normal speech, Normal strength at 5/5 x4 extr, Normal tone, Normal affect. Plan: Continue bronchodilators. Currently on oral prednisone. Pulmonary added Brovana. Repeat chest x-ray shows no acute infiltrate. Patient reporting yellowish to greenish sputum production. Continue Levaquin for infective bronchitis. Continue bronchodilators and steroids. Wean off oxygen as possible Pulmonary input appreciated. RONALDO resolved. IV fluid discontinued. Discharge planning.
[2021-02-05] MEDS: LORAZEPAM 0.5 MG TABLET PO PRN ×2 (12:44→22:36)
[2021-02-05] MEDS: ATORVASTATIN 20 MG TAB PO SCH (22:07)
[2021-02-06] MEDS: IPRATROPIUM BROM 0.5MG/2.5ML NEB SCH ×3 (01:50→14:01)
[2021-02-06 06:02] LABS: Potassium 4.9 mmol/L (3.5-5.1)
[2021-02-06] MEDS: ARFORMOTEROL TARTRATE 15 MCG/2 ML VIAL.NEB NEB SCH (07:46)
[2021-02-06] MEDS: MONTELUKAST 10 MG TAB PO SCH (07:53)
[2021-02-06] MEDS: predniSONE 20 MG TAB PO SCH (07:53)
[2021-02-06] MEDS: ENOXAPARIN 40 MG/0.4 ML SQ SCH (07:53)
[2021-02-06] MEDS: levoFLOXacin 750 MG TAB PO SCH (07:53)
[2021-02-06] MEDS: VENLAFAXINE HCL XR 75 MG CAP PO SCH (07:54)
[2021-02-06 08:52] VITALS: O2SAT 98
--- NOTE | 2021-02-06 09:43 | P.DS ---
Admission Date: 02/01/21 Discharge Date: 02/06/21 Disposition: ROUTINE DISCHARGE Discharge Condition: FAIR Reason for Admission: copd exacerbation - Problems (1) RONALDO (acute kidney injury) Current Visit: Yes Status: Acute (2) COPD exacerbation Onset Date: 05/20/17 Current Visit: No Status: Acute (3) Chronic respiratory failure with hypoxia Current Visit: No Status: Acute (4) Hypercholesterolemia Current Visit: Yes Status: Acute Brief History of Present Illness: Ms. Duran is a 50 yo M with COPD on 2.5L Home 02 who presents with one week of worsening SOB and HAYES. Reports cough productive of clear sputum, pleuritic chest pain and wheezing. She reports mild relief with inhalers. She was prescribed a course of prednisone by her PCP, but when her symptoms continued to worsen, her PCP told her to call EMS. Upon arrival to the ED, respiratory rate was in the 30s and she was tripoding. Symptoms improved after she was placed on BIPAP. She tested negative for COVID and Flu. She still smokes occasionally. K 3.2 Cr 1.48 GFR 37. Hospital Course: And admitted to the medical floor and treated for COPD exacerbation with IV steroids, scheduled bronchodilators. Patient was complaining of productive cough with yellowish to greenish sputum. She was treated with Levaquin for infective bronchitis. She gradually improved with treatment and IV steroid was transitioned to oral prednisone. Patient at baseline uses oxygen intermittently at home. She improved to the point she was stable on room air. Patient has clinically improved and deemed stable for discharge. She is discharged with a prednisone taper. Vital Signs/Physical Exam: Temp Pulse Resp BP Pulse Ox 97.5 F 75 18 100/62 96 02/06/21 08:00 02/06/21 08:00 02/06/21 08:00 02/06/21 08:00 02/06/21 08:00 General: Alert, In no apparent distress, Oriented x3 HEENT: Mucous membr. moist/pink Neck: JVD not distended Respiratory: Clear to auscultation bilaterally, Diminished Cardiovascular: No edema, Regular rate/rhythm, Normal S1 S2 Gastrointestinal: Normal bowel sounds, Soft and benign, Non-distended, No tenderness Musculoskeletal: No swelling, No tenderness Integumentary: No rashes, No cyanosis Neurological: Normal strength at 5/5 x4 extr Laboratory Data at Discharge: WBC 8.50 K/uL (4.3-10.9) 02/05/21 06:01 Hgb 12.8 g/dL (12.0-15.0) 02/05/21 06:01 Hct 39.2 % (36.0-45.0) 02/05/21 06:01 Plt Count 228 K/uL (152-406) 02/05/21 06:01 PT 10.6 SECONDS (9.5-12.5) 02/01/21 19:50 INR 0.92 02/01/21 19:50 Sodium 138 mmol/L (136-145) 02/06/21 04:58 Potassium 4.9 mmol/L (3.5-5.1) 02/06/21 04:58 BUN 24 mg/dL (7-18) H 02/06/21 04:58 Creatinine 0.98 mg/dL (0.55-1.3) 02/06/21 04:58 Glucose 157 mg/dL (74-106) H 02/06/21 04:58 Phosphorus 4.4 mg/dL (2.5-4.9) 02/05/21 06:01 Magnesium 2.5 mg/dL (1.8-2.4) H 02/05/21 06:01 Total Bilirubin 0.2 mg/dL (0.2-1.0) 02/02/21 05:07 AST 10 U/L (15-37) L 02/02/21 05:07 ALT 13 U/L (12-78) 02/02/21 05:07 Alkaline Phosphatase 68 U/L (45-117) 02/02/21 05:07 Triglycerides 95 mg/dL (<150) 02/02/21 05:07 Cholesterol 245 mg/dL (<200) H 02/02/21 05:07 HDL Cholesterol 72 mg/dL (40-60) H 02/02/21 05:07 Cholesterol/HDL Ratio 3.40 02/02/21 05:07 Home Medications: Venlafaxine HCl [Venlafaxine HCl ER] 1 cap PO DAILY 12/18/20 Fluticasone/Umeclidin/Vilanter [Trelegy Ellipta 100-62.5-25] 1 puff PO DAILY 02/02/21 Montelukast Sodium [Singulair] 10 mg PO DAILY 02/02/21 Albuterol Neb [Proventil 0.083% Neb Soln] 2.5 mg NEB Q6HP PRN #120 amp 02/06/21 Benzonatate [Tessalon Perle*] 100 mg PO TID PRN #30 cap 02/06/21 Ipratropium Neb [Atrovent*] 0.5 mg NEB [id number] #120 amp 02/06/21 levoFLOXacin [Levaquin*] 750 mg PO DAILY #2 tab 02/06/21 predniSONE [Prednisone*] 20 mg PO BID #9 tab 02/06/21 New Medications: Ipratropium Neb [Atrovent*] 0.5 mg NEB [id number] #120 amp Albuterol Neb [Proventil 0.083% Neb Soln] 2.5 mg NEB Q6HP PRN #120 amp PRN Reason: Shortness Of Breath levoFLOXacin [Levaquin*] 750 mg PO DAILY #2 tab predniSONE [Prednisone*] 20 mg PO BID #9 tab Benzonatate [Tessalon Perle*] 100 mg PO TID PRN #30 cap PRN Reason: Cough Diet: AHA Activity: Ad flaca Followup: NONE,NONE [Primary Care Provider] - Time spent managing pt's care (in minutes): 34
[2021-02-06] MEDS: LORAZEPAM 0.5 MG TABLET PO PRN (12:48)
[2021-02-06 16:21] VITALS: TEMP 98
[2021-02-06 16:29] VITALS: BP 102/57
== END 2021-02-06 03:55 | disposition home or self-care (01) | DRG 190 ==
LOC: ER 19:19 → ERHOLD 22:08 → 2ND 23:56
PROVIDERS: ADMIT Internal Medicine; ATTEND Internal Medicine
PROC: 5A09557 Assistance with Respiratory Ventilation, Greater than 96 Consecutive Hours, Continuous Positive Airway Pressure (ICD-10-PCS; principal; 2021-02-02)
DX: J44.1 Chronic obstructive pulmonary disease with (acute) exacerbation (principal); J96.21 Acute and chronic respiratory failure with hypoxia; N17.9 Acute kidney failure, unspecified; F17.200 Nicotine dependence, unspecified, uncomplicated; E78.00 Pure hypercholesterolemia, unspecified; E87.6 Hypokalemia; Z86.718 Personal history of other venous thrombosis and embolism; Z79.01 Long term (current) use of anticoagulants; Z90.710 Acquired absence of both cervix and uterus; Z56.0 Unemployment, unspecified; Z79.51 Long term (current) use of inhaled steroids; Z79.899 Other long term (current) drug therapy; Z90.711 Acquired absence of uterus with remaining cervical stump; Z99.81 Dependence on supplemental oxygen; Z20.822 Contact with and (suspected) exposure to COVID-19
CPT/HCPCS: 36415; 71045; 80048; 80053; 80061; 80076; 83735; 83880; 84100; 84439; 84443; 84484; 85025; 85610; 93005; 94640; 94660; 94760; 97161; 99285; J0456; J1644; J1650; J2920; J3475; J7030; J7050; J7512; J7605; U0003

== ENCOUNTER 2021-07-13 14:00 | Observation (INO) | payer OTHER ==
--- OUTSIDE RECORDS SUMMARY | 2021-07-13 14:03 | XMS REPORT | Continuity of Care Document ---
:1970 Author Organization [facility] t Address [address] [place] [address] [address]. [address] [place] [address] Care Team Providers Name Role Phone MARCOS LAM Attending Clinician Unavailable Marcos Lam MD Attending Clinician Earl BELCHER Attending Clinician Isidro Lechuga MD Attending Clinician Only, Test Attending Clinician Unavailable Pob, Lab Main Attending Clinician Unavailable Doctor Unassigned, Name Attending Clinician Unavailable Sophie Attending Clinician Unavailable MARCOS LAM Admitting Clinician Unavailable Marcos Lam MD Admitting Clinician Sophie Admitting Clinician Unavailable Payers Payer Name Policy Type Policy Number Effective Date Expiration Date [facility] [id number] 2020 00:00:00 Problems This patient has no known problems. Allergies, Adverse Reactions, Alerts Allergy Allergy Status Severity Reaction(s) Onset Inactive Treating Comm ents Source Name Type Date Date Clinician NO KNOWN Drug Active [facility] Medications This patient has no known medications. Procedures This patient has no known procedures. Encounters Start End Encounter Admission Attending Care Care Encounter Source Date/Time Date/Time Type Type Clinicians Facility Department ID 2020-12-18 Outpatient GINA MEIER OPH [id number] Tami 11:16:09 MECHE yang [facility] 2020-11-24 Inpatient ER [facility] Vascular [id number] [facility] 10:40:01 [facility] 2020-05-26 2020-05-26 Hospital Genaro [facility] [id number] 10:30:00 12:59:00 Encounter Meche Osorioton [id number] Marcos Rivera [id number] Surgical [id number] [place] 071 2020-05-26 2020-05-26 Surgery [facility] [id number] 12:12:00 12:48:00 [place] [id number] Nicole [id number] Surgical [id number] [place] 020 2020-05-26 2020-05-26 Anesthesia Bradley Elliott [facility] 1.2.840. [id number] 12:09:00 12:37:00 Event Meche Lechugaton [id number]. 10 Nicole [id number] Surgical [id number] [place] 020 2020-05-25 2020-05-25 Laboratory Only, [facility] [id number] 10:21:30 10:36:30 Only Test [place] [id number] Nicole [id number] [place] [id number] 2020-05-25 2020-05-25 [id number] Univers 10:15:00 10:15:[address] [facility] 2020-05-19 2020-05-19 Hospitality Job Titles Torie, [facility] [id number] 12:11:02 12:26:02 Visit Lab Main Mary [id number] Nicole [id number] Professio [id number] nal 353 [facility] 2020-05-19 2020-05-19 [facility] [id number] Univers 12:15:00 12:15:00 [facility] 2020-05-19 2020-05-19 Orders Doctor ARNOLD [id number] 00:00:00 00:00:00 Only UnassCHRIS jacome [id number] [place] [facility] 4.2.7.2.686 [id number] 2019-12-08 2019-12-08 Outpatient KEMAL Soliz [id number] [facility] 10:14:00 10:14:00 J[facility] Results Test Description Test Time Test Comments Results Result Comments Source - XR CHEST 2 V 2019-12-08 11:11:00 [facility] 1970 Sex: F FAX: Jn Barton MD [phone] [place]: St: REG Name: NICOLERIVERAMADA [facility] : 1970 Age/S: 49/F [address] Unit #: [id number] Loc: [place] [address] Phys: Jn Barrios MD Acct: [id number] Dis Date: Status: REG CLI PHONE #: [phone] Exam Date: 12/08/2019 1111 FAX #: [phone] Reason: R06.02, SHORTNESS OF BREATH. EXAMS: CPT CODE: [id number] XR CHEST 2 V 25417 CLINICAL HISTORY: R06.02, SHORTNESS OF BREATH. COMPARISON: [...] Gomez(Margi) Trnscrd Date/Time/By: 12/08/2019 (1111) : By: JosyS Orig Print D/T: S: 12/08/2019 (1418) PAGE 1 Signed Report
[2021-07-13 15:01] LABS: Hematocrit 42.2 % (36.0-45.0); Lymphocytes % 15.3 % (15.3-44.8); MPV 7.8 fL (7.6-11.3); RBC Red Blood Cell Count 4.38 M/uL (3.86-4.86)
[2021-07-13 15:04] LABS: Protime INR 1.26
[2021-07-13 15:24] LABS: Albumin 3.3 g/dL (3.4-5.0); Bilirubin Direct 0.2 mg/dL (0-0.2); Bilirubin Total 0.8 mg/dL (0.2-1.0); Protein, Total 6.8 g/dL (6.4-8.2); Troponin High Sensitivity 5.3 pg/mL (<58.9)
--- NOTE | 2021-07-13 15:30 | ER ---
Nurse's Notes [facility] Name: Roxanne Duran Age: 51 yrs Sex: Female : 1970 Arrival Date: 07/13/2021 Time: 14:03 Bed 23 Private MD: Diagnosis: COPD/ Chronic obstructive pulmonary disease, unspecified;Chest pain on breathing;Acute embolism and thrombosis of other specified deep vein of left lower extremity;Pulmonary embolism without acute cor pulmonale;Elevated white blood cell count Presentation: 07/13 14:10 Chief complaint: Patient states: she feels short of breath that has been going on for 4 ap3 days, patient also complains of back pain that radiates to her right chest wall. Patient wears home O2 at 2.5 liters, but was still feeling short of breath. EMS placed patient on 2.5 liters while in route, and patient was having an O2 saturation of 95%. Coronavirus screen: Client presents with at least one sign or symptom that may indicate coronavirus-19. Ebola Screen: No symptoms or risks identified at this time. Initial Sepsis Screen: Does the patient meet any 2 criteria? HR > 90 bpm. No. Patient's initial sepsis screen is negative. Does the patient have a suspected source of infection? No. Patient's initial sepsis screen is negative. Risk Assessment: Do you want to hurt yourself or someone else? Patient reports no desire to harm self or others. Onset of symptoms was July 09, 2021. 14:10 Method Of Arrival: EMS: [facility] ap3 14:10 Acuity: SHYLA 3 ap3 Triage Assessment: 14:14 General: Appears in no apparent distress. Behavior is cooperative, anxious. Pain: ap3 Complains of pain in back Pain radiates to right lateral anterior chest Pain began gradually, 1 day ago. Neuro: Level of Consciousness is awake, alert, obeys commands, Oriented to person, place, time, situation, Appropriate for age. Cardiovascular: Patient's skin is warm and dry. Respiratory: Airway is patent Respiratory effort is even, unlabored, Respiratory pattern is tachypnea Onset: The symptoms/episode began/occurred the last 4 days. 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 - Social history:: Smoking status: Patient reports the use of cigarette tobacco products, smokes one pack cigarettes per day. - Family history:: not pertinent. Screenin:15 Abuse screen: Denies threats or abuse. Nutritional screening: No deficits noted. ap3 Tuberculosis screening: No symptoms or risk factors identified. Fall Risk No fall in past 12 months (0 pts). Assessment: 16:00 Reassessment: Patient and/or family updated on plan of care and expected duration. Pain ap3 level reassessed. Patient is alert, oriented x 3, equal unlabored respirations, skin warm/dry/pink. 17:00 Reassessment: Patient and/or family updated on plan of care and expected duration. Pain ap3 level reassessed. Patient is alert, oriented x 3, equal unlabored respirations, skin warm/dry/pink. patient resting eyes closed, respirations even and unlabored at this time. patient appears to be in no signs of distress. call light is within reach, and bed is locked in lowest position. 18:10 Reassessment: Patient and/or family updated on plan of care and expected duration. Pain ap3 level reassessed. Patient is alert, oriented x 3, equal unlabored respirations, skin warm/dry/pink. 20:20 Reassessment: I gave report to the ER nurse that is taking all the ER Holds. The pt was hector instructed that she would be bed bound, given their findings. Vital Signs: 14:10 BP 155 / 118; Pulse 113; Resp 21; Temp 98.8; Pulse Ox 96% on 2.5 lpm NC; Weight 81.65 ap3 kg; Height 5 ft. 4 in. (162.56 cm); 15:56 BP 124 / 79; Pulse 101; Pulse Ox 95% on 2.5 lpm NC; ap3 17:00 BP 107 / 90; Pulse 87; Pulse Ox 95% on 2.5 lpm NC; ap3 18:11 BP 123 / 78; Pulse 102; Pulse Ox 98% on 2.5 lpm NC; ap3 19:33 BP 106 / 70; Pulse 98; Resp 20; Temp 98.5; Pulse Ox 95% on 2 lpm NC; Pain 0/10; hector 14:10 Body Mass Index 30.90 (81.65 kg, 162.56 cm) ap3 ED Course: 14:03 Patient arrived in ED. faye 14:03 Hipolito Ty MD is Attending Physician. faye 14:10 Genevieve Copeland, STEVE is Primary Nurse. ap3 14:13 Triage completed. ap3 14:16 Arm band placed on right wrist. ap3 14:16 Patient has correct armband on for positive identification. Bed in low position. Call ap3 light in reach. Side rails up X2. panel monitor on. Pulse ox on. NIBP on. Door closed. Noise minimized. 14:19 COVID-19 SARS RT PCR (Document "Date of Onset" if Symptomatic) Sent. 5 14:35 Inserted saline lock: 20 gauge in left antecubital area, using aseptic technique. Blood zm collected. 14:36 COVID-19 SARS RT PCR (Document "Date of Onset" if Symptomatic) Sent. zm 14:55 Lactate Sent. zm 14:55 Basic Metabolic Panel Sent. zm 14:55 CBC with Diff Sent. zm 14:55 PT-INR Sent. zm 14:55 LFT's Sent. zm 14:55 NT PRO-BNP Sent. zm 14:55 Troponin HS Sent. zm 14:55 Magnesium Sent. zm 14:55 Blood Culture Adult (2) Sent. zm 15:18 XRAY Chest (1 view) In Process Unspecified. EDMS 15:26 Amilcar Andres MD is Hospitalizing Provider. faye 16:25 US Extremity Venous W Compression Max In Process Unspecified. EDMS 19:34 No provider procedures requiring assistance completed. hector 05 07:34 Patient admitted, IV remains in place. ap3 Administered Medications: 07/13 15:50 Drug: NS 0.9% 1000 ml Route: IV; Rate: 125 ml/hr; Site: left antecubital; ap3 17:48 Follow up: IV Status: Completed infusion ap3 15:50 Drug: SOLU-Medrol (methylPrednisoLONE) 125 mg Route: IVP; Site: left antecubital; ap3 17:49 Follow up: Response: No adverse reaction ap3 15:50 Drug: Pepcid (famotidine) 20 mg Route: IVP; Site: left antecubital; ap3 17:48 Follow up: Response: No adverse reaction ap3 15:50 Drug: levofloxacin 500 mg Volume: 100 ml; Route: IVPB; Infused Over: 60 mins; Site: ap3 left antecubital; 17:49 Follow up: IV Status: Completed infusion ap3 15:50 Drug: morphine 4 mg Route: IVP; Infused Over: 4 mins; Site: left antecubital; ap3 17:49 Follow up: Response: No adverse reaction ap3 15:50 Drug: Zofran (Ondansetron) 4 mg Route: IVP; Site: left antecubital; ap3 17:49 Follow up: Response: No adverse reaction ap3 17:36 CANCELLED (Physician Discretion): Lovenox (enoxaparin) 1 mg/kg Sub-Q once sb3 Medication: 14:16 VIS not applicable for this client. ap3 Outcome: 15:30 Decision to Hospitalize by Provider. faye 19:34 Condition: stable hector 07/14 07:34 Admitted to ER Hold. Please see [facility] for further documentation. ap3 Discharge instructions given to patient. 15:10 Patient left the ED. ap3 Signatures: Dispatcher [employer] EDHipolito Nolan MD MD cha Martinez, [facility] Genevieve Copeland RN RN ap3 Lorenza Flynn RN RN bo Martinez, Jennifer Washburn sb3
--- NOTE | 2021-07-13 15:31 | EDPHYS ---
Physician Documentation [facility] Name: Roxanne Duran Age: 51 yrs Sex: Female : 1970 Arrival Date: 07/13/2021 Time: 14:03 Bed 23 Private MD: ED Physician Hipolito Ty HPI: 07/13 15:00 This 51 yrs old Unknown Female presents to ER via EMS with complaints of right cp and faye sob. 15:00 The patient has shortness of breath at rest, with light activity. Onset: The faye symptoms/episode began/occurred 1 day(s) ago. Duration: The symptoms are continuous, and are steadily getting worse. The patient's shortness of breath is aggravated by exertion, light activity, is alleviated by rest, sitting up, application of supplemental oxygen. The patient or guardian reports chest pain that is located primarily in the anterior chest wall, right. Onset: today. The patient presents to the emergency department with wheezing, Current therapy: albuterol nebs. Modifying factors: The symptoms are alleviated by nothing, the symptoms are aggravated by animal dander. The pain does not radiate. Associated signs and symptoms: Pertinent positives: chest pain, non-productive cough. 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 - Social history:: Smoking status: Patient reports the use of cigarette tobacco products, smokes one pack cigarettes per day. - Family history:: not pertinent. ROS: 15:00 Constitutional: Negative for fever, chills, and weight loss, Eyes: Negative for injury, faye pain, redness, and discharge, ENT: Negative for injury, pain, and discharge, Neck: Negative for injury, pain, and swelling, Cardiovascular: Negative for chest pain, palpitations, and edema, Abdomen/GI: Negative for abdominal pain, nausea, vomiting, diarrhea, and constipation, Back: Negative for injury and pain, : Negative for injury, bleeding, discharge, and swelling, MS/Extremity: Negative for injury and deformity, Skin: Negative for injury, rash, and discoloration, Neuro: Negative for headache, weakness, numbness, tingling, and seizure, Psych: Negative for depression, anxiety, suicide ideation, homicidal ideation, and hallucinations, Allergy/Immunology: Negative for hives, rash, and allergies, Endocrine: Negative for neck swelling, polydipsia, polyuria, polyphagia, and marked weight changes, Hematologic/Lymphatic: Negative for swollen nodes, abnormal bleeding, and unusual bruising. 15:00 Respiratory: Positive for cough, with no reported sputum, shortness of breath, at rest. 15:00 MS/extremity: Positive for pain, of the left leg. Exam: 15:00 Constitutional: This is a well developed, well nourished patient who is awake, alert, faye and in no acute distress. Head/Face: Normocephalic, atraumatic. Eyes: Pupils equal round and reactive to light, extra-ocular motions intact. Lids and lashes normal. Conjunctiva and sclera are non-icteric and not injected. Cornea within normal limits. Periorbital areas with no swelling, redness, or edema. ENT: Nares patent. No nasal discharge, no septal abnormalities noted. Tympanic membranes are normal and external auditory canals are clear. Oropharynx with no redness, swelling, or masses, exudates, or evidence of obstruction, uvula midline. Mucous membranes moist. Neck: Trachea midline, no thyromegaly or masses palpated, and no cervical lymphadenopathy. Supple, full range of motion without nuchal rigidity, or vertebral point tenderness. No Meningismus. Chest/axilla: Normal chest wall appearance and motion. Nontender with no deformity. No lesions are appreciated. Cardiovascular: Regular rate and rhythm with a normal S1 and S2. No gallops, murmurs, or rubs. Normal PMI, no JVD. No pulse deficits. Respiratory: Lungs have equal breath sounds bilaterally, clear to auscultation and percussion. No rales, rhonchi or wheezes noted. No increased work of breathing, no retractions or nasal flaring. Abdomen/GI: Soft, non-tender, with normal bowel sounds. No distension or tympany. No guarding or rebound. No evidence of tenderness throughout. Back: No spinal tenderness. No costovertebral tenderness. Full range of motion. Skin: Warm, dry with normal turgor. Normal color with no rashes, no lesions, and no evidence of cellulitis. MS/ Extremity: Pulses equal, no cyanosis. Neurovascular intact. Full, normal range of motion. Neuro: Awake and alert, GCS 15, oriented to person, place, time, and situation. Cranial nerves II-XII grossly intact. Motor strength 5/5 in all extremities. Sensory grossly intact. Cerebellar exam normal. Normal gait. Psych: Awake, alert, with orientation to person, place and time. Behavior, mood, and affect are within normal limits. 15:09 ECG was reviewed by the Attending Physician. faye Vital Signs: 14:10 BP 155 / 118; Pulse 113; Resp 21; Temp 98.8; Pulse Ox 96% on 2.5 lpm NC; Weight 81.65 ap3 kg; Height 5 ft. 4 in. (162.56 cm); 15:56 BP 124 / 79; Pulse 101; Pulse Ox 95% on 2.5 lpm NC; ap3 17:00 BP 107 / 90; Pulse 87; Pulse Ox 95% on 2.5 lpm NC; ap3 18:11 BP 123 / 78; Pulse 102; Pulse Ox 98% on 2.5 lpm NC; ap3 19:33 BP 106 / 70; Pulse 98; Resp 20; Temp 98.5; Pulse Ox 95% on 2 lpm NC; Pain 0/10; hector 14:10 Body Mass Index 30.90 (81.65 kg, 162.56 cm) ap3 MDM: 14:03 Patient medically screened. faye 15:05 Differential diagnosis: Bronchitis CHF exacerbation, Chronic Obstructive Pulmonary faye Disease reactive airway, CHF, URI, pneumonia. Antibiotic administration: Levaquin given. HEART Score: History: Slightly Suspicious (0), ECG: Normal (0), Age: > 45 and < 65 years (1), Risk Factors: > or = 3 Risk factors for atherosclerotic disease (2), [Hypertension] [+ Family HX] [Obesity] Troponin: < or = 1 x Normal Limit (0). The patient was not given aspirin in the Emergency Department. Not indicated due to patient's past medical history. The patient's Wells Deep Vein Thrombosis Score was calculated as follows: Total Score: 0. This patient was found to be at low risk for a deep vein thrombosis by using the Well's assessment criteria Heart Rate >100 BPM (1.5 Pts) Previous DVT/PE (1.5 Pts) Total Score: 3-6 Pts - Mod Risk. The patient's pulmonary embolism risk score was calculated as follows: the patients heart rate is greater than 100 beats per minute (1.5 Pts) the patient has a history of a previous deep vein thrombosis or pulmonary embolism (1.5 Pts) Total Score: 3-6 points. This patient was found to be at moderate risk for a pulmonary embolism by using the Well's assessment criteria the patients heart rate is greater than 100 beats per minute (1.5 Pts) the patient has a history of a previous deep vein thrombosis or pulmonary embolism (1.5 Pts) Total Score: 3-6 points. This patient was found to be at moderate risk for a pulmonary embolism by using the Well's assessment criteria. JANETT Risk Score: 1 - Three or more CAD risk factors, TOTAL SCORE = 2. Immunization status: Influenza vaccine: Data reviewed: vital signs, nurses notes, lab test result(s), EKG, radiologic studies, CT scan, doppler, plain films. Data interpreted: quality assurance monitor: rate is 113 beats/min, rhythm is regular. Test interpretation: by ED physician or midlevel provider: ECG, plain radiologic studies. Counseling: I had a detailed discussion with the patient and/or guardian regarding: the historical points, exam findings, and any diagnostic results supporting the discharge/admit diagnosis, the presence of at least one elevated blood pressure reading (>120/80) during this emergency department visit, lab results, radiology results, the need for further work-up and treatment in the hospital. 07/13 14:08 Order name: COVID-19 SARS RT PCR (Document "Date of Onset" if Symptomatic); Complete dh3 Time: 15:49 07/13 14:34 Order name: Basic Metabolic Panel; Complete Time: 15:49 [facility] 07/13 14:34 Order name: CBC with Diff; Complete Time: 15:49 [facility] 07/13 14:34 Order name: LFT's; Complete Time: 15:49 [facility] 07/13 14:34 Order name: Magnesium; Complete Time: 15:49 [facility] 07/13 14:34 Order name: NT PRO-BNP; Complete Time: 15:49 [facility] 07/13 14:34 Order name: PT-INR; Complete Time: 15:49 [facility] 07/13 14:34 Order name: Troponin HS; Complete Time: 15:49 [facility] 07/13 14:34 Order name: Blood Culture Adult (2) [facility] 07/13 14:34 Order name: Lactate; Complete Time: 15:49 [facility] 07/13 15:14 Order name: Lipase; Complete Time: 15:49 [facility] 07/14 05:34 Order name: CBC with Automated Diff [facility] 07/14 05:55 Order name: Comprehensive Metabolic Panel [facility] 07/13 14:34 Order name: XRAY Chest (1 view); Complete Time: 17:42 [facility] 07/13 14:34 Order name: EKG; Complete Time: 14:35 [facility] 07/13 14:55 Order name: US Extremity Venous W Compression Max; Complete Time: 17:42 [facility] 07/13 14:55 Order name: CT Chest For PE Angio [facility] 07/13 17:01 Order name: CT; Complete Time: 17:42 [facility] 07/13 17:08 Order name: CT; Complete Time: 17:42 [facility] 07/14 05:55 Order name: Magnesium [facility] 07/14 06:56 Order name: Urine Dipstick-Ancillary [facility] 07/13 14:34 Order name: Cardiac monitoring; Complete Time: 14:37 [facility] 07/13 14:34 Order name: EKG - Nurse/Tech; Complete Time: 14:37 [facility] 07/13 14:34 Order name: IV Saline Lock; Complete Time: 14:36 [facility] 07/13 14:34 Order name: Labs collected and sent; Complete Time: 14:36 [facility] 07/13 14:34 Order name: O2 Per Protocol; Complete Time: 14:36 [facility] 07/13 14:34 Order name: O2 Sat Monitoring; Complete Time: 14:37 [facility] EC:09 Rate is 101 beats/min. Rhythm is regular. QRS [place] is Normal. DC interval is normal. [facility] QRS interval is normal. QT interval is normal. No Q waves. T waves are Normal. No ST changes noted. Clinical impression: NSR w/ Non-specific ST/T Changes and No evidence of ischemia. Interpreted by me. Reviewed by me. Administered Medications: 15:50 Drug: NS 0.9% 1000 ml Route: IV; Rate: 125 ml/hr; Site: left antecubital; ap3 17:48 Follow up: IV Status: Completed infusion ap3 15:50 Drug: SOLU-Medrol (methylPrednisoLONE) 125 mg Route: IVP; Site: left antecubital; ap3 17:49 Follow up: Response: No adverse reaction ap3 15:50 Drug: Pepcid (famotidine) 20 mg Route: IVP; Site: left antecubital; ap3 17:48 Follow up: Response: No adverse reaction ap3 15:50 Drug: levofloxacin 500 mg Volume: 100 ml; Route: IVPB; Infused Over: 60 mins; Site: ap3 left antecubital; 17:49 Follow up: IV Status: Completed infusion ap3 15:50 Drug: morphine 4 mg Route: IVP; Infused Over: 4 mins; Site: left antecubital; ap3 17:49 Follow up: Response: No adverse reaction ap3 15:50 Drug: Zofran (Ondansetron) 4 mg Route: IVP; Site: left antecubital; ap3 17:49 Follow up: Response: No adverse reaction ap3 17:36 CANCELLED (Physician Discretion): Lovenox (enoxaparin) 1 mg/kg Sub-Q once sb3 Disposition Summary: 07/13/21 15:30 Hospitalization Ordered Hospitalization Status: Observation faye Provider: Amilcar Andres faye Condition: Fair faye Problem: new faye Symptoms: have improved faye Bed/Room Type: Standard faye Location: [facility] ER HOLD(07/13/21 19:18) cg Room Assignment: ERHOLD-(07/13/21 19:18) cg Diagnosis - COPD/ Chronic obstructive pulmonary disease, unspecified faye - Chest pain on breathing faye - Acute embolism and thrombosis of other specified deep vein of left lower extremity faye - Pulmonary embolism without acute cor pulmonale faye - Elevated white blood cell count faye Forms: - Medication Reconciliation Form faye - SBAR form faye Signatures: Dispatcher [employer] EDMS Hipolito Ty MD MD cha Attema, Lee, SET ILLUSTRATOR-C SET ILLUSTRATOR-Cla1 Shelby Arriaga RN RN cg Genevieve Copeland RN RN ap3 Jennifer Yun PA PA sb3 Corrections: (The following items were deleted from the chart) 15:14 14:58 LIPASE+C.LAB.BRZ ordered. EDMS EDMS 17:36 17:24 Lovenox (enoxaparin) 1 mg/kg Sub-Q once ordered. sb3 sb3 19:18 15:30 Telemetry/MedSurg (observation) faye cg :18 15:30 [facility] cg
[2021-07-13] MEDS ORDERED: ALBUTEROL 2.5 MG/3 ML NEB SOL ONE (15:39)
[2021-07-13] MEDS ORDERED: ONDANSETRON 4 MG/2 ML VIAL ONE (15:39)
[2021-07-13] MEDS ORDERED: METHYLPREDNISOLONE 125 MG INJ ONE (15:39)
[2021-07-13] MEDS ORDERED: MORPHINE 4 MG/ML SYR ONE (15:39)
[2021-07-13] MEDS ORDERED: NA CHLORIDE 0.9% 1,000 ML ONE (15:40)
[2021-07-13] MEDS ORDERED: Levofloxacin500mg IV 500 MG/100 ML BAG IV ONE (15:40)
[2021-07-13] MEDS ORDERED: FAMOTIDINE 20 MG/2 ML VIAL IV ONE (15:40)
--- NOTE | 2021-07-13 16:33 | RAD REPORT ---
EXAM DESCRIPTION: USExtrem Venous W Compress Bil07/13/2021 4:23 pm CLINICAL HISTORY: Leg pain COMPARISON: 2020 FINDINGS: The right common femoral, superficial femoral, popliteal and posterior tibial veins are c ompressible and demonstrate augmentation. Doppler demonstrates good flow Echogenic material consistent with acute thrombus is present within the left common femoral, left sup erficial femoral and left popliteal veins. The veins are not compressible with little flow. Grayscale, color and spectral analysis performed on all vessels IMPRESSION: Acute thrombus within the left common femoral, left superficial femoral and left poplite al veins
--- NOTE | 2021-07-13 16:59 | RAD REPORT ---
EXAM DESCRIPTION: CT - Chest For Pe Angio - 07/13/2021 4:46 pm CLINICAL HISTORY: sob COMPARISON: 2020 TECHNIQUE: Dynamically enhanced axial 3 mm thick images of the chest were obtained during administra tion of <100> mL Isovue 370 IV contrast. Coronal and oblique reconstruction images were generated and reviewed. Exam utilizes a protocol for optimal evaluation of pulmonary arterial tree. Maximum intensity projections 3D imaging was utilized All CT scans are performed using dose optimization technique as appropriate and may include automated exposure control or mA/KV adjustment according to patient size. FINDINGS: Thrombus is present within the peripheral aspect of the left lower lobe pulmonary artery w hich appears subacute. No thrombus is seen within the main pulmonary, right and left main pulmonary and right pulmonary deepak celio. A thoracic aortic aneurysm is not noted. A pleural effusion is not seen. A pericardial effusion is not seen. COPD. A 4 centimeter right lower lobe opacity probably atelectasis IMPRESSION: Subacute left lower lobe pulmonary emboli
--- NOTE | 2021-07-13 17:07 | RAD REPORT ---
EXAM DESCRIPTION: CT - Abdomen Pelvis W Contrast - 07/13/2021 4:46 pm CLINICAL HISTORY: Abdominal pain/back pain COMPARISON: 2012 TECHNIQUE: Computed axial tomography of the abdomen pelvis was obtained. 100 cc Isovue-300 was admin istered intravenously. Oral contrast was not requested which limits evaluation of bowel and appendix All CT scans are performed using dose optimization technique as appropriate and may include automated exposure control or mA/KV adjustment according to patient size. FINDINGS: The liver, spleen, pancreas, adrenal and left kidney appear unremarkable. Cortical thinning right kidney perhaps related to prior inflammation. There is no evidence of diverticulitis. Normal appendix Hysterectomy. No adnexal mass Acute thrombus within the left common femoral and left superficial femoral veins IMPRESSION: Acute thrombus within the left common femoral and left superficial femoral veins
--- NOTE | 2021-07-13 17:11 | RAD REPORT ---
EXAM DESCRIPTION: [place] Single View07/13/2021 3:17 pm CLINICAL HISTORY: Shortness of breath COMPARISON: 2020 FINDINGS: The lungs are moderately hyperaerated. Mild right basilar atelectasis. The remainder of the lungs appear clear of acute infiltrate. The hear t is normal size IMPRESSION: COPD Mild right lower lobe atelectasis
--- NOTE | 2021-07-13 17:23 | P.HP ---
Certification for Inpatient Patient admitted to: Observation With expected LOS: <2 Midnights Patient will require the following post-hospital care: None Practitioner: I am a practitioner with admitting privileges, knowledge of patient current condition, hospital course, and medical plan of care. Services: Services provided to patient in accordance with Admission requirements found in Title 42 Section 412.3 of the Code of Federal Regulations Patient History Date of Service: 07/13/21 Reason for admission: Subacute PE History of Present Illness: Patient is a 51-year-old female with COPD on home oxygen who presented to the ED with complaints of left leg pain and swelling, shortness of breath, and chest pain with breathing. Patient has a history of DVT that she was diagnosed with about 2-3 years ago and takes Eliquis daily. She does not think they checked for PE at the time and does not know the cause. In venous ultrasound showed acute thrombus within the left common femoral, left superficial femoral and left popliteal veins and CTA showed subacute left lower lobe pulmonary emboli. Troponin negative. WBC elevated at 13. Other labs WNL. Patient saturating appropriately on 2.5 L. Patient states that she takes her eliquis as prescribed, has not missed a dose, and has not had any prolonged immobilization or any DVT risk factors lately. Will admit patient for observation. Allergies No Known Drug Allergies Allergy (Verified 12/25/19 22:10) Unknown No Known Allergies Allergy (Uncoded 12/25/19 22:10) Unknown Home Medications: Venlafaxine HCl [Venlafaxine HCl ER] 1 cap PO DAILY 12/18/20 Fluticasone/Umeclidin/Vilanter [Trelegy Ellipta 100-62.5-25] 1 puff PO DAILY 02/02/21 Montelukast Sodium [Singulair] 10 mg PO DAILY 02/02/21 Albuterol Neb [Proventil 0.083% Neb Soln] 2.5 mg NEB Q6HP PRN #120 amp 02/06/21 Benzonatate [Tessalon Perle*] 100 mg PO TID PRN #30 cap 02/06/21 Ipratropium Neb [Atrovent*] 0.5 mg NEB [id number] #120 amp 02/06/21 levoFLOXacin [Levaquin*] 750 mg PO DAILY #2 tab 02/06/21 predniSONE [Prednisone*] 20 mg PO BID #9 tab 02/06/21 - Past Medical/Surgical History Diabetic: No -: COPD -: ANXIETY -: DVT -: HYSTERECTOMY -: cataract surgery R eye Psychosocial/ Personal History: Patient lives at home with her children is currently unemployed - Family History Mother -: Lung disease, Other (see notes) Notes: OXYGEN DEPENDENT, SMOKER. depresssion Father -: Lung disease, GI disease, Kidney disease Notes: SMOKER - Social History Alcohol use: No CD- Drugs: No Caffeine use: Yes Review of Systems Respiratory: Shortness of Breath, Pleuritic Pain Cardiovascular: Chest Pain Musculoskeletal: Leg Pain Physical Examination - Physical Exam General: Alert, In no apparent distress HEENT: Atraumatic, EOMI, Sclerae nonicteric Neck: Supple, 2+ carotid pulse no bruit, No LAD, Without JVD or thyroid abnormality Respiratory: Diminished, Expiratory wheezes Cardiovascular: Regular rate/rhythm, Normal S1 S2 Gastrointestinal: Normal bowel sounds, No tenderness Musculoskeletal: No erythema, Tenderness Integumentary: No rashes Neurological: Normal speech, Normal strength at 5/5 x4 extr, Normal tone, Normal affect - Studies Laboratory Data (last 24 hrs) 07/13/21 14:57: Lipase Cancelled 07/13/21 14:40: PT 13.9 H, INR 1.26 07/13/21 14:40: WBC 13.2 H, Hgb 13.7, Hct 42.2, Plt Count 205 07/13/21 14:40: Sodium 139, Potassium 4.0, BUN 13, Creatinine 1.05, Glucose 95, Magnesium 2.0 D, Total Bilirubin 0.8, AST 9 L, ALT 11 L, Alkaline Phosphatase 78, Lipase 70 L Assessment and Plan - Problems (Diagnosis) (1) Pulmonary embolism Current Visit: Yes Status: Acute Qualifiers: Pulmonary embolism type: unspecified Chronicity: unspecified Acute cor pulmonale presence: without acute cor pulmonale Qualified Code(s): I26.99 - Other pulmonary embolism without acute cor pulmonale (2) Acute deep vein thrombosis (DVT) of lower extremity Current Visit: Yes Status: Acute Qualifiers: Affected thrombotic vein of extremity: femoral Laterality: left Qualified Code(s): I82.412 - Acute embolism and thrombosis of left femoral vein (3) Acute on chronic respiratory failure with hypoxia Current Visit: Yes Status: Acute (4) Anxiety Current Visit: Yes Status: Chronic (5) COPD (chronic obstructive pulmonary disease) Current Visit: Yes Status: Chronic Qualifiers: COPD type: unspecified COPD Qualified Code(s): J44.9 - Chronic obstructive pulmonary disease, unspecified - Plan -Will start patient on therapeutic dose lovenox as home eliquis is not properly anticoagulating patient. -Patient likely needs further workup for clotting disorder -breathing treatments PRN SHOB/wheezing -continue supplemental O2 and monitor pulse oximetry -obtain and continue home medications -Full code - Advance Directives Does patient have a Living Will: No Does patient have a Durable POA for Healthcare: No
[2021-07-13] MEDS ORDERED: IPRATROPIUM BROM 0.5MG/2.5ML NEB PRN (22:51)
[2021-07-13] MEDS ORDERED: ONDANSETRON 4 MG/2 ML VIAL IV PRN (22:51)
[2021-07-14] MEDS: ENOXAPARIN 80 MG/0.8 ML SQ SCH ×3 (00:50→20:16)
[2021-07-14] MEDS ORDERED: ENOXAPARIN 80 MG/0.8 ML SQ ONE ×2 (00:54→08:00)
[2021-07-14 05:17] VITALS: BMI 30.9
[2021-07-14 05:25] LABS: Absolute Lymphocytes (CBC) 0.9 K/uL (0.7-4.9); Hematocrit 39.4 % (36.0-45.0); Lymphocytes % 8.1 % (15.3-44.8); MPV 8.1 fL (7.6-11.3)
[2021-07-14 05:52] LABS: AST/SGOT 12 U/L (15-37); Albumin 2.8 g/dL (3.4-5.0); Alkaline Phosphatase 80 U/L (45-117); BUN Blood Urea Nitrogen 17 mg/dL (7-18); Bicarbonate 29 mmol/L (21-32); Bilirubin Total 0.3 mg/dL (0.2-1.0); Glomerular Filtration Rate 57 ml/min (=/>90); Glucose Level 158 mg/dL (74-106); Magnesium 2.3 mg/dL (1.8-2.4); Potassium 4.3 mmol/L (3.5-5.1); Protein, Total 6.5 g/dL (6.4-8.2); Sodium Level 137 mmol/L (136-145)
[2021-07-14 05:54] LABS: ALT/SGPT < 10 U/L (12-78)
[2021-07-14 06:56] LABS: Urine Blood 2+ (Negative); Urine Glucose Trace (Negative); Urine Protein Negative (Negative); Urine pH 5.5 (5.0-7.0)
[2021-07-14] MEDS: ACETAMINOPHEN 500 MG TAB PO PRN ×2 (08:14→20:15)
[2021-07-14] MEDS ORDERED: ACETAMINOPHEN 500 MG TAB ONE (08:20)
--- NOTE | 2021-07-14 17:59 | EKG ---
Test Date: 2021-07-13 Test Time: 14:57:42 Corporate Auditor: ALEJANDRO MEASUREMENT RESULTS: Intervals: Rate: 101 NH: 130 QRSD: 78 QT: 378 QTc: 490 [place]: P: 88 NH: 130 QRS: 85 T: 82 INTERPRETIVE STATEMENTS: Sinus tachycardia Right atrial enlargement Borderline ECG Compared to ECG 02/01/2021 20:40:57 Atrial abnormality now present T-wave abnormality no longer present Electronically Signed On 07-14-21 17:57:37 CDT by Bob Reyez
--- NOTE | 2021-07-14 18:44 | P.PN ---
Date of Service: 07/14/21 Subjective: not significant change short of breath with minimal movement ROS: 10 point ROS as noted above, otherwise negative Physical exam GEN: Alert, oriented, NAD HEENT: Normal conjunctiva, sclera anicteric CV: Regular rate and rhythm, no edema Pulm: Nonlabored respirations on room air ABD: Soft, nontender, nondistended MSK: No joint tenderness Integumentary: No rashes Neuro: Normal speech, normal affect Problem List acute / subacute PE and DVT h/o DVT acute on chronic respiratory failure with hypoxia secondary to PE anxiety COPD, chronic continue lovenox patient states she restarted eliquis 5mg bid ~4-6 weeks ago reports occasionally forgetting 2nd dose, but taking it ~3-4 hours after scheduled time continue O2 as needed; pt has home O2 breathing treatments PRN continue home meds as appropriate on discharge, will change to xarelto VTE: lovenox 1mg/kg Code: full Dispo: home, 1-2 days Time Spent Managing Pts Care (In Minutes): 35
[2021-07-14] MEDS: ALBUTEROL 2.5 MG/3 ML NEB SOL NEB PRN (20:20)
[2021-07-15] MEDS ORDERED: PNEUMOCOCCAL VACCINE 0.5 ML IMVAC ONE (08:00)
[2021-07-15 08:02] LABS: Hematocrit 37.1 % (36.0-45.0); MPV 7.5 fL (7.6-11.3); RBC Red Blood Cell Count 3.91 M/uL (3.86-4.86)
[2021-07-15 08:20] LABS: Potassium 4.1 mmol/L (3.5-5.1)
[2021-07-15] MEDS: IPRATROPIUM BROM 0.5MG/2.5ML NEB PRN ×2 (08:37→20:10)
[2021-07-15] MEDS: ALBUTEROL 2.5 MG/3 ML NEB SOL NEB PRN ×2 (08:37→20:10)
[2021-07-15] MEDS: HOME MED 1 EA UNK (Fluticasone/Umeclidin/Vilanter [Trelegy Ellipta 100-62.5-25] Blst.W.Dev PO SCH (09:00)
[2021-07-15] MEDS: RIVAROXABAN 15 MG TABLET PO SCH ×2 (10:50→21:18)
[2021-07-15] MEDS: MONTELUKAST 10 MG TAB PO SCH (10:51)
[2021-07-15] MEDS: predniSONE 20 MG TAB PO SCH ×2 (10:51→21:18)
[2021-07-15] MEDS: VENLAFAXINE HCL XR 75 MG CAP PO SCH (10:51)
--- NOTE | 2021-07-15 13:56 | RAD REPORT ---
EXAM DESCRIPTION: [place] Single View07/15/2021 12:57 pm CLINICAL HISTORY: Hypoxia COMPARISON: July 13, 2021 FINDINGS: Left basilar opacity represents epicardial fat. Lungs appear clear of acute infiltrate. Lungs are hyperaerated. Heart is normal size
--- NOTE | 2021-07-15 18:18 | P.PN ---
Date of Service: 07/15/21 Subjective: slight improvement, has not gotten out of bed yet for some reason patient was placed on bedrest ROS: 10 point ROS as noted above, otherwise negative Physical exam GEN: Alert, oriented, NAD HEENT: Normal conjunctiva, sclera anicteric CV: Regular rate and rhythm, no edema Pulm: Nonlabored respirations on room air ABD: Soft, nontender, nondistended Neuro: Normal speech, normal affect Problem List acute / subacute PE and DVT h/o DVT acute on chronic respiratory failure with hypoxia secondary to PE anxiety COPD, chronic transition lovenox to xarelto patient states she restarted eliquis 5mg bid ~4-6 weeks ago reports occasionally forgetting 2nd dose, but taking it ~3-4 hours after scheduled time continue O2 as needed; pt has home O2 breathing treatments PRN continue home meds as appropriate ambulate monitor SpO2 with ambulation VTE: xarelto Code: full Dispo: home, likely tomorrow Time Spent Managing Pts Care (In Minutes): 35
[2021-07-16 06:04] LABS: Absolute Lymphocytes (CBC) 1.2 K/uL (0.7-4.9); Hematocrit 38.4 % (36.0-45.0); Lymphocytes % 17.2 % (15.3-44.8); MPV 7.6 fL (7.6-11.3); RBC Red Blood Cell Count 4.04 M/uL (3.86-4.86)
[2021-07-16 06:22] LABS: Potassium 4.4 mmol/L (3.5-5.1)
[2021-07-16] MEDS: VENLAFAXINE HCL XR 75 MG CAP PO SCH (07:57)
[2021-07-16] MEDS: HOME MED 1 EA UNK (Fluticasone/Umeclidin/Vilanter [Trelegy Ellipta 100-62.5-25] Blst.W.Dev PO SCH (07:58)
[2021-07-16] MEDS: MONTELUKAST 10 MG TAB PO SCH (07:58)
[2021-07-16] MEDS: predniSONE 20 MG TAB PO SCH (07:58)
[2021-07-16] MEDS: RIVAROXABAN 15 MG TABLET PO SCH (08:03)
--- NOTE | 2021-07-16 09:18 | P.DS ---
Admission Date: 07/13/21 Discharge Date: 07/16/21 Disposition: ROUTINE DISCHARGE Discharge Condition: GOOD Reason for Admission: Subacute PE Brief History of Present Illness: 51-year-old female with COPD on home oxygen who presented to the ED with complaints of left leg pain and swelling, shortness of breath, and chest pain with breathing. Patient has a history of DVT that she was diagnosed with about 2-3 years ago and takes Eliquis daily. She does not think they checked for PE at the time and does not know the cause. In venous ultrasound showed acute thrombus within the left common femoral, left superficial femoral and left p opliteal veins and CTA showed subacute left lower lobe pulmonary emboli. Troponin negative. WBC elevated at 13. Other labs WNL. Patient saturating appropriately on 2.5 L. Patient states that she takes her eliquis as prescribed, has not missed a dose, and has not had any prolonged immobilization or any DVT risk factors lately. Will admit patient for observation. Hospital Course: Problem List acute / subacute PE and DVT h/o DVT acute on chronic respiratory failure with hypoxia secondary to PE anxiety COPD, chronic Diagnosed with left pulmonary embolism and left lower extremity DVT. Initially treated with lovenox and transitioned to Xarelto. Suspect patient developed DVT several weeks ago. She restarted her 5mg twice daily eliquis. Recommend starting Xarelto with loading dosage. Imaging and bloodwork did not reveal any infection. Follow up with Pulmonology in ~1 week. Follow up with Hematology - Dr. Wan or Pooja in 4-6 weeks. For further evaluation. Patient has been more sedentary lately which would increase her risk. Did not report any recent surgeries /traumas /long trips. Vital Signs/Physical Exam: Temp Pulse Resp BP Pulse Ox 97.7 F 81 16 107/55 L 96 07/16/21 04:00 07/16/21 04:00 07/16/21 04:00 07/16/21 04:00 07/16/21 04:00 Physical exam GEN: Alert, oriented, NAD HEENT: Normal conjunctiva, sclera anicteric CV: Regular rate and rhythm, no edema Pulm: Nonlabored respirations on 2L NC ABD: Soft, nontender, nondistended Neuro: Normal speech, normal affect Laboratory Data at Discharge: WBC 6.9 K/uL (4.3-10.9) 07/16/21 05:23 Hgb 12.8 g/dL (12.0-15.0) 07/16/21 05:23 Hct 38.4 % (36.0-45.0) 07/16/21 05:23 Plt Count 231 K/uL (152-406) 07/16/21 05:23 PT 13.9 SECONDS (9.5-12.5) H 07/13/21 14:40 INR 1.26 07/13/21 14:40 Sodium 140 mmol/L (136-145) 07/16/21 05:23 Potassium 4.4 mmol/L (3.5-5.1) 07/16/21 05:23 BUN 14 mg/dL (7-18) 07/16/21 05:23 Creatinine 0.84 mg/dL (0.55-1.3) 07/16/21 05:23 Glucose 143 mg/dL (74-106) H 07/16/21 05:23 Magnesium 2.3 mg/dL (1.8-2.4) 07/14/21 03:36 Total Bilirubin 0.3 mg/dL (0.2-1.0) 07/14/21 03:36 AST 12 U/L (15-37) L 07/14/21 03:36 ALT < 10 U/L (12-78) L 07/14/21 03:36 Alkaline Phosphatase 80 U/L (45-117) 07/14/21 03:36 Lipase Cancelled 07/13/21 14:57 Home Medications: Fluticasone/Umeclidin/Vilanter [Trelegy Ellipta 100-62.5-25] 1 puff PO DAILY 02/02/21 Montelukast Sodium [Singulair] 10 mg PO DAILY 02/02/21 Albuterol Neb [Proventil 0.083% Neb Soln] 2.5 mg NEB Q6HP PRN #120 amp 02/06/21 Albuterol Sulfate [Proair Hfa] 2 puff IH Q4H 07/14/21 Ipratropium Neb [Atrovent*] 0.5 mg NEB [id number] PRN 07/14/21 Venlafaxine HCl [Venlafaxine HCl ER] 1 tab PO DAILY 07/14/21 Rivaroxaban [Xarelto] 1 each PO SEECOM 30 Days #1 tab.ds.pk 07/16/21 New Medications: Rivaroxaban [Xarelto] 1 each PO SEECOM 30 Days #1 tab.ds.pk Followup: Nicholas Barrera MD [ACTIVE - CAN ADMIT] - 1 Week (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
[2021-07-16 09:39] VITALS: BP 100/77; TEMP 97.8
[2021-07-16] MEDS: IPRATROPIUM BROM 0.5MG/2.5ML NEB PRN (10:05)
[2021-07-16] MEDS: ALBUTEROL 2.5 MG/3 ML NEB SOL NEB PRN (10:05)
[2021-07-16 12:08] VITALS: O2SAT 99
== END 2021-07-16 11:39 | disposition home or self-care (01) ==
LOC: ER 14:00 → ERHOLD 16:17 → 2ND 07-14 14:50
PROVIDERS: ADMIT Hospitalist; ATTEND Hospitalist
DX: I26.99 Other pulmonary embolism without acute cor pulmonale (principal); I82.412 Acute embolism and thrombosis of left femoral vein; J96.21 Acute and chronic respiratory failure with hypoxia; J44.9 Chronic obstructive pulmonary disease, unspecified; F41.9 Anxiety disorder, unspecified; Z86.718 Personal history of other venous thrombosis and embolism; Z79.01 Long term (current) use of anticoagulants; Z99.81 Dependence on supplemental oxygen; F17.210 Nicotine dependence, cigarettes, uncomplicated; Z90.710 Acquired absence of both cervix and uterus; Z28.310 Unvaccinated for COVID-19; Z20.822 Contact with and (suspected) exposure to COVID-19
CPT/HCPCS: 96365; 93005; 87040 ×2; 85025 ×3; 80048 ×3; 36415 ×2; 83735 ×2; 85610; 80076; 83605; 81003; 85027; 84484; 83690; 80053; 83880; 71275; 74177; 71045 ×2; 93970; 94640 ×4; 96375; 99285; 96366; U0003; Q9967; J7512 ×3; G0378 ×6; J7030; J2930; J2405; J3490

== ENCOUNTER 2021-11-17 16:56 | Inpatient (IN) | payer OTHER ==
--- OUTSIDE RECORDS SUMMARY | 2021-11-17 16:59 | XMS REPORT | Continuity of Care Document ---
:1970 Author Organization [facility] t Address [address] [place] [address] Care Team Providers Name Role Phone [place] Colton ARREDONDO Primary Care Physician [phone] MECHE BABCOCK Attending Clinician Unavailable Meche Babcock MD Attending Clinician Bradley Elliott MD Attending Clinician Meche Lechuga MD Attending Clinician Only, Adc Test Attending Clinician Unavailable Pob, Adc Lab Main Attending Clinician Unavailable Doctor Unassigned, [place] Attending Clinician Unavailable Jn Barrios Attending Clinician Unavailable MECHE BABCOCK Admitting Clinician Unavailable Meche Babcock MD Admitting Clinician Jn Barrios Admitting Clinician Unavailable Payers Payer Name Policy Type Policy Number Effective Date Expiration Date [facility] [id number] 2020 00:00:00 Problems This patient has no known problems. Allergies, Adverse Reactions, Alerts Allergy Allergy Status Severity Reaction(s) Onset Inactive Treating Comm ents Source Name Type Date Date Clinician NO KNOWN Drug Active Univers ALLERGIE Class ity of [facility] Social History Social Habit Start Date Stop Date Quantity Comments Source Sex Assigned At [address] 1970 [facility] 00:00:00 [facility] Medications Ordered Filled Start Stop Current Ordering Indication Dosage Frequency Signature Comments Components Source Medication Medication Date Date Medication? Clinician (SIG) Name Name TAKE 1 2-0 No 10 TABLET BY 8-12 MOUTH EVERY 00:00: DAY FOR 90 00 DAYS TAKE 1 2022-0 No 10 TABLET BY 8-12 MOUTH EVERY 00:00: DAY FOR 90 00 DAYS TAKE 1 2-0 No 20 TABLET BY 7-26 MOUTH EVERY 00:00: DAY FOR 90 00 DAYS Lexapro 5 2-0 No 1mg mg tablet 7-13 00:00: 00 hydroxyzine 2022-0 No 1mg HCl 25 mg 7-13 tablet 00:00: 00 Effexor XR 2022-0 No 1mg 75 mg 7-13 capsule,ext 00:00: ended 00 release Effexor XR 2022-0 No 1mg 75 mg 7-13 capsule,ext 00:00: ended 00 release Effexor XR 2022-0 No 1mg 150 mg 7-13 capsule,ext 00:00: ended 00 release TAKE 1 2-0 No 25 TABLET BY 7-13 MOUTH EVERY 00:00: DAY FOR 30 00 DAYS INHALE 1 2-0 No PUFF BY 7-13 MOUTH EVERY 00:00: DAY 00 Singulair 2-0 No 1mg 10 mg 6-27 tablet 00:00: 00 Symbicort 2-0 No 2mcg/ac 160 mcg-4.5 6-16 tuation mcg/actuati 00:00: on HFA 00 aerosol inhaler ProAir HFA 2-0 No 1mcg/ac 90 6-16 tuation mcg/actuati 00:00: on aerosol 00 inhaler venlafaxine 2-0 No 1mg ER 225 mg 5-13 tablet,exte 00:00: nded 00 release 24 hr hydroxyzine 2022-0 No 1mg HCl 25 mg 5-13 tablet 00:00: 00 Dose 2022-0 No Unknown 4-14 00:00: 00 Dose 2022-0 No Unknown 4-14 00:00: 00 ProAir HFA 2022-0 No 1mcg/ac 90 3-18 tuation mcg/actuati 00:00: on aerosol 00 inhaler prednisone 2-0 No mg 20 mg 3-18 tablet 00:00: 00 ipratropium 2022-0 No 3mg 0.5 3-18 base)/3 mg-albutero 00:00: mL l 3 mg (2.5 00 mg base)/3 mL nebulizatio n soln Dose 2021-0 No Unknown 3-17 00:00: 00 Dose 2021-0 No Unknown 3-17 00:00: 00 Dose 2-0 No Unknown 3-17 00:00: 00 Dose 2021-0 No Unknown 3-17 00:00: 00 Dose 2021-0 No Unknown 3-17 00:00: 00 Dose 2021-0 No Unknown 3-17 00:00: 00 Dose 2021-0 No Unknown 3-17 00:00: 00 Dose 2021-0 No Unknown 3-17 00:00: 00 Dose 2021-0 No Unknown 3-17 00:00: 00 Dose 2021-0 No Unknown 3-17 00:00: 00 Dose 2021-0 No Unknown 3-17 00:00: 00 Dose 2021-0 No Unknown 2-21 00:00: 00 Dose 2021-0 No Unknown 2-21 00:00: 00 Dose 2021-0 No Unknown 2-17 00:00: 00 venlafaxine 2021-0 No 1mg ER 150 mg 2-17 capsule,ext 00:00: ended 00 release 24 hr Dose 2021-0 No Unknown 1-19 00:00: 00 Dose 2-0 No Unknown 1-19 00:00: 00 hydroxyzine 2020-1 No 1mg HCl 25 mg 2-30 tablet 00:00: 00 venlafaxine 2020-1 No 1mg ER 150 mg 2-30 capsule,ext 00:00: ended 00 release 24 hr Singulair 2020-1 No 1mg 10 mg 2-08 tablet 00:00: 00 prednisone 2020-1 No mg 20 mg 2-08 tablet 00:00: 00 Effexor XR 2020-1 No 1mg 75 mg 2-08 capsule,ext 00:00: ended 00 release Symbicort 2020-1 No 2mcg/ac 160 mcg-4.5 2-03 tuation mcg/actuati 00:00: on HFA 00 aerosol inhaler ProAir HFA 2020- No 1mcg/ac 90 1-09 tuation mcg/actuati 00:00: on aerosol 00 inhaler prednisone 1-1 No 2mg 20 mg 0-28 tablet 00:00: 00 levofloxaci 1-1 No 1mg n 500 mg 0-28 tablet 00:00: 00 prednisone 1-1 No 2mg 20 mg 0-04 tablet 00:00: 00 azithromyci 1-1 No mg n 250 mg 0-04 tablet 00:00: 00 Tessalon 1-1 No 1mg Perles 100 0-04 mg capsule 00:00: 00 ProAir HFA 2020-0 No 1mcg/ac 90 9-23 tuation mcg/actuati 00:00: on aerosol 00 inhaler prednisone 1-0 No 2mg 20 mg 8-02 tablet 00:00: 00 levofloxaci 1-0 No 1mg n 500 mg 8-02 tablet 00:00: 00 Zithromax 1-0 No mg 250 mg 7-29 tablet 00:00: 00 ProAir HFA 2020-0 No 1mcg/ac 90 7-01 tuation mcg/actuati 00:00: on aerosol 00 inhaler Symbicort 2020-0 No 2mcg/ac 160 mcg-4.5 6-03 tuation mcg/actuati 00:00: on HFA 00 aerosol inhaler Symbicort 2020-0 No 2mcg/ac 160 mcg-4.5 5-03 tuation mcg/actuati 00:00: on HFA 00 aerosol inhaler ProAir HFA 2020-0 No 1mcg/ac 90 5-03 tuation mcg/actuati 00:00: on aerosol 00 inhaler Augmentin 1-0 No 1mg 875 mg-125 5-03 mg tablet 00:00: 00 hydroxyzine 1-0 No 1mg HCl 50 mg 5-03 tablet 00:00: 00 Effexor XR 1-0 No 1mg 75 mg 5-03 capsule,ext 00:00: ended 00 release ProAir HFA 2020-0 No 1mcg/ac 90 4-22 tuation mcg/actuati 00:00: on aerosol 00 inhaler prednisone 1-0 No 2mg 20 mg 3-26 tablet 00:00: 00 levofloxaci 1-0 No 1mg n 500 mg 3-26 tablet 00:00: 00 ProAir HFA 2020-0 No 1mcg/ac 90 2-19 tuation mcg/actuati 00:00: on aerosol 00 inhaler ProAir HFA 2020-0 No 1mcg/ac 90 2-19 tuation mcg/actuati 00:00: on aerosol 00 inhaler ipratropium 2020-0 No 3mg 0.5 2-19 base)/3 mg-albutero 00:00: mL l 3 mg (2.5 00 mg base)/3 mL nebulizatio n soln ProAir HFA 2020-0 No 1mcg/ac 90 2-03 tuation mcg/actuati 00:00: on aerosol 00 inhaler ProAir HFA 2019-1 No 1mcg/ac 90 2-29 tuation mcg/actuati 00:00: on aerosol 00 inhaler montelukast 2019-1 No 1mg 10 mg 2-29 tablet 00:00: 00 Effexor XR 2020-0 No 1mg 75 mg 9-30 capsule,ext 00:00: ended 00 release ProAir HFA 2019-0 No 1mcg/ac 90 8-17 tuation mcg/actuati 00:00: on aerosol 00 inhaler Effexor XR 2020-0 No 1mg 75 mg 8-11 capsule,ext 00:00: ended 00 release Effexor XR 2020-0 No 1mg 75 mg 8-11 capsule,ext 00:00: ended 00 release prednisone 2020-0 No 2mg 20 mg 7-29 tablet 00:00: 00 Bromfed DM 2020-0 No 75mg/5 2 mg-30 7-29 mL mg-10 mg/5 00:00: mL oral 00 syrup prednisone 2020-0 No 1mg 20 mg 7-22 tablet 00:00: 00 furosemide 2020-0 No 1mg 20 mg 7-22 tablet 00:00: 00 diclofenac 2020-0 No 1mg sodium 75 7-22 mg 00:00: tablet,yeni 00 yed release Symbicort 2020-0 No 2mcg/ac 160 mcg-4.5 6-17 tuation mcg/actuati 00:00: on HFA 00 aerosol inhaler Symbicort 2020-0 No 2mcg/ac 160 mcg-4.5 6-17 tuation mcg/actuati 00:00: on HFA 00 aerosol inhaler Trelegy 2020-0 No 1mcg Ellipta 100 6-10 mcg-62.5 00:00: mcg-25 mcg 00 powder for inhalation bupropion 2020-0 No 1mg HCl XL 150 5-27 mg 24 hr 00:00: tablet, 00 extended release buspirone 2020-0 No 1mg 10 mg 5-27 tablet 00:00: 00 bupropion 2020-0 No 1mg HCl XL 150 5-27 mg 24 hr 00:00: tablet, 00 extended release buspirone 2020-0 No 1mg 10 mg 5-27 tablet 00:00: 00 montelukast 2020-0 No 1mg 10 mg 5-27 tablet 00:00: 00 montelukast 2020-0 No 1mg 10 mg 5-27 tablet 00:00: 00 albuterol 2020-0 No 3/3 mL sulfate 2.5 5-27 (0.083 mg/3 mL 00:00: %) (0.083 %) 00 solution for nebulizatio n albuterol 2020-0 No 3/3 mL sulfate 2.5 5-27 (0.083 mg/3 mL 00:00: %) (0.083 %) 00 solution for nebulizatio n ProAir HFA 2020-0 No 1mcg/ac 90 2-19 tuation mcg/actuati 00:00: on aerosol 00 inhaler ProAir HFA 2020-0 No 1mcg/ac 90 2-19 tuation mcg/actuati 00:00: on aerosol 00 inhaler Trelegy 2020-0 No 1mcg Ellipta 100 2-19 mcg-62.5 00:00: mcg-25 mcg 00 powder for inhalation Trelegy 2020-0 No 1mcg Ellipta 100 2-19 mcg-62.5 00:00: mcg-25 mcg 00 powder for inhalation bupropion 2020-0 No 1mg HCl XL 150 2-12 mg 24 hr 00:00: tablet, 00 extended release buspirone 2020-0 No 1mg 10 mg 2-12 tablet 00:00: 00 montelukast 2020-0 No 1mg 10 mg 2-12 tablet 00:00: 00 benzonatate 2020-0 No 12mg 100 mg 2-12 capsule 00:00: 00 Spiriva 2020-0 No 1mcg with 2-07 HandiHaler 00:00: 18 mcg and 00 inhalation capsules Spiriva 2019-0 No 1mcg/ac Respimat 2-06 tuation 2.5 00:00: mcg/actuati 00 on solution for inhalation ProAir HFA 0 No 1mcg/ac 90 1-24 tuation mcg/actuati 00:00: on aerosol 00 inhaler albuterol 0 No 3/3 mL sulfate 2.5 1-24 (0.083 mg/3 mL 00:00: %) (0.083 %) 00 solution for nebulizatio n Symbicort 2018-02 No 2mcg/ac 160 mcg-4.5 2-31 tuation mcg/actuati 00:00: on HFA 00 aerosol inhaler ProAir HFA 2018-02 No 1mcg/ac 90 2-31 tuation mcg/actuati 00:00: on aerosol 00 inhaler Advair 2018-02 No 1mcg/do Diskus 250 2-31 se mcg-50 00:00: mcg/dose 00 powder for inhalation prednisone 2018-02 No 1mg 20 mg 2-31 tablet 00:00: 00 montelukast 2018- No 1mg 10 mg 2-31 tablet 00:00: 00 indomethaci 2018- No 1mg n 50 mg 2-31 capsule 00:00: 00 gabapentin 2018- No 1mg 300 mg 2-31 capsule 00:00: 00 prednisone 2018- No mg 20 mg 1-20 tablet 00:00: 00 benzonatate 2018- No 1mg 200 mg 1-20 capsule 00:00: 00 Bromfed DM 2018- No 5mg/5 2 mg-30 1-20 mL mg-10 mg/5 00:00: mL oral 00 syrup albuterol 2018-02 No 1/3 mL sulfate 2.5 1-20 (0.083 mg/3 mL 00:00: %) (0.083 %) 00 solution for nebulizatio n albuterol 2018-02 No 1/3 mL sulfate 2.5 1-20 (0.083 mg/3 mL 00:00: %) (0.083 %) 00 solution for nebulizatio n Symbicort 2018-02 No 2mcg/ac 160 mcg-4.5 1-20 tuation mcg/actuati 00:00: on HFA 00 aerosol inhaler ProAir HFA 2018-02 No 1mcg/ac 90 1-20 tuation mcg/actuati 00:00: on aerosol 00 inhaler ProAir HFA 2018-02 No 1mcg/ac 90 1-20 tuation mcg/actuati 00:00: on aerosol 00 inhaler Trelegy 2018- No 1mcg Ellipta 100 1-20 mcg-62.5 00:00: mcg-25 mcg 00 powder for inhalation citalopram 2018-02 No 1mg 40 mg 1-20 tablet 00:00: 00 Seroquel 25 2018-02 No 1mg mg tablet 1-20 00:00: 00 prednisone 2018- No mg 20 mg 1-20 tablet 00:00: 00 Vital Signs Vital Name Observation Time Observation Value Comments Source BP Systolic 2021-05-05 15:41:00 118 mm[Hg] BP Diastolic 2021-05-05 15:41:00 78 mm[Hg] Weight Measured 2021-05-05 15:41:00 188.40 pounds Height Measured 2021-05-05 15:41:00 64.80 inches Body Temperature 2021-05-05 15:41:00 98.10 degrees Heart Rate 2021-05-05 15:41:00 103.00 /min Respiratory Rate 2021-05-05 15:41:00 16.00 /min BP Systolic 2021-05-04 14:25:00 BP Diastolic 2021-05-04 14:25:00 Weight Measured 2021-05-04 14:25:00 200.00 pounds Height Measured 2021-05-04 14:25:00 64.80 inches Body Temperature 2021-05-04 14:25:00 Heart Rate 2021-05-04 14:25:00 Respiratory Rate 2021-05-04 14:25:00 BP Systolic 2021-02-16 11:23:00 102 mm[Hg] BP Diastolic 2021-02-16 11:23:00 67 mm[Hg] Weight Measured 2021-02-16 11:23:00 200.80 pounds Height Measured 2021-02-16 11:23:00 64.80 inches Body Temperature 2021-02-16 11:23:00 98.20 degrees Heart Rate 2021-02-16 11:23:00 Respiratory Rate 2021-02-16 11:23:00 BP Systolic 2020-11-21 14:35:00 BP Diastolic 2020-11-21 14:35:00 Weight Measured 2020-11-21 14:35:00 190.00 pounds Height Measured 2020-11-21 14:35:00 Body Temperature 2020-11-21 14:35:00 Heart Rate 2020-11-21 14:35:00 Respiratory Rate 2020-11-21 14:35:00 BP Systolic 2020-06-20 15:50:00 109 mm[Hg] BP Diastolic 2020-06-20 15:50:00 75 mm[Hg] Weight Measured 2020-06-20 15:50:00 184.60 pounds Height Measured 2020-06-20 15:50:00 64.80 inches Body Temperature 2020-06-20 15:50:00 97.60 degrees Heart Rate 2020-06-20 15:50:00 92.00 /min Respiratory Rate 2020-06-20 15:50:00 18.00 /min BP Systolic 2020-04-28 15:10:00 100 mm[Hg] BP Diastolic 2020-04-28 15:10:00 61 mm[Hg] Weight Measured 2020-04-28 15:10:00 183.80 pounds Height Measured 2020-04-28 15:10:00 64.80 inches Body Temperature 2020-04-28 15:10:00 98.80 degrees Heart Rate 2020-04-28 15:10:00 97.00 /min Respiratory Rate 2020-04-28 15:10:00 BP Systolic 2019-09-29 14:38:00 114 mm[Hg] BP Diastolic 2019-09-29 14:38:00 75 mm[Hg] Weight Measured 2019-09-29 14:38:00 185.40 pounds Height Measured 2019-09-29 14:38:00 64.80 inches Body Temperature 2019-09-29 14:38:00 98.70 degrees Heart Rate 2019-09-29 14:38:00 84.00 /min Respiratory Rate 2019-09-29 14:38:00 BP Systolic 2019-09-09 10:29:00 105 mm[Hg] BP Diastolic 2019-09-09 10:29:00 69 mm[Hg] Weight Measured 2019-09-09 10:29:00 184.40 pounds Height Measured 2019-09-09 10:29:00 64.80 inches Body Temperature 2019-09-09 10:29:00 98.20 degrees Heart Rate 2019-09-09 10:29:00 101.00 /min Respiratory Rate 2019-09-09 10:29:00 18.00 /min BP Systolic 2019-04-01 13:42:00 101 mm[Hg] BP Diastolic 2019-04-01 13:42:00 64 mm[Hg] Weight Measured 2019-04-01 13:42:00 171.40 pounds Height Measured 2019-04-01 13:42:00 64.80 inches Body Temperature 2019-04-01 13:42:00 98.20 degrees Heart Rate 2019-04-01 13:42:00 79.00 /min Respiratory Rate 2019-04-01 13:42:00 16.00 /min BP Systolic 2019-02-17 16:09:00 100 mm[Hg] BP Diastolic 2019-02-17 16:09:00 69 mm[Hg] Weight Measured 2019-02-17 16:09:00 174.60 pounds Height Measured 2019-02-17 16:09:00 64.80 inches Body Temperature 2019-02-17 16:09:00 98.10 degrees Heart Rate 2019-02-17 16:09:00 98.00 /min Respiratory Rate 2019-02-17 16:09:00 16.00 /min Procedures This patient has no known procedures. Plan of Care Planned Activity Planned Date Details Comments Source Goal Plan of Care Note [code = 31136-0] Goal Plan of Care Note [code = 87663-1] Goal Plan of Care Note [code = 69733-3] Goal Plan of Care Note [code = 18562-1] Goal Plan of Care Note [code = 69943-3] Goal Plan of Care Note [code = 04037-3] Goal Plan of Care Note [code = 77071-0] Goal Plan of Care Note [code = 57485-0] Goal Plan of Care Note [code = 69630-6] Goal Plan of Care Note [code = 67932-9] Goal Plan of Care Note [code = 78103-7] Goal Plan of Care Note [code = 26655-7] Goal Plan of Care Note [code = 84616-1] Goal Plan of Care Note [code = 28462-6] Goal Plan of Care Note [code = 31313-9] Goal Plan of Care Note [code = 14361-8] Goal Plan of Care Note [code = 30695-3] Goal Plan of Care Note [code = 12080-6] Goal Plan of Care Note [code = 81617-9] Goal Plan of Care Note [code = 15486-9] Goal Plan of Care Note [code = 06912-7] Goal Plan of Care Note [code = 62384-3] Goal Plan of Care Note [code = 29998-8] Goal Plan of Care Note [code = 58298-9] Goal Plan of Care Note [code = 46097-5] Encounters Start End Encounter Admission Attending Care Care Encounter Source Date/Time Date/Time Type Type Clinicians Facility Department ID 2020-12-18 Outpatient Margi BABCOCK [facility] [id number] [facility] 11:16:09 MECHE mauricio [facility] 2020-11-24 Inpatient ER [facility] [id number] [facility] 10:40:01 [facility] 2021-10-04 2021-10-04 Outpatient [id number] 00:00:00 00:00:00 Visit [id number] 2020-05-26 2020-05-26 [facility] [id number] 10:30:00 12:59:00 Encounter Meche Mary [id number] Marcos Rivera 4.2.7.2.686 Surgical [id number] [place] 071 2020-05-26 2020-05-26 Surgery [facility] [id number] 12:12:00 12:48:00 Kelly [id number] Nicole 4.2.7.2.686 Surgical [id number] [place] 020 2020-05-26 2020-05-26 Anesthesia Bradley Elliott [facility] 1.2.840. 114 [id number] 12:09:00 12:37:00 Event Meche Lechuga 350.1.13. 10 [facility] 4.2.7.2.686 Surgical [id number] Center 020 2020-05-25 2020-05-25 Laboratory Only, [facility] 1.2.840.114 [id number] 10:21:30 10:36:30 Only Test Mary [id number] [facility] 4.2.7.2.686 [place] [id number] 2020-05-25 2020-05-25 Outpatient Margi BABCOCK, [facility] [id number] Univers 10:15:00 10:15:00 MECHE yang [facility] 2020-05-19 2020-05-19 News Editor Torie, [facility] 1.2.840.114 [id number] 12:11:02 12:26:02 Visit Lab Main Mary [id number] [facility] 4.2.7.2.686 Professio [id number] [address] 2020-05-19 2020-05-19 Outpatient Margi BABCOCK, [facility] [id number] Univers 12:15:00 12:15:00 MECHE yang [facility] 2020-05-19 2020-05-19 Orders Doctor CLAYTON 1.2.840.114 [id number] 00:00:00 00:00:00 Only Unassigned, CHRIS 350.1.13.10 [place] [facility] 4.2.7.2.686 [id number] 2019-12-08 2019-12-08 Outpatient RAMIRO Barrios, [facility] [id number] [facility] 10:14:00 10:14:[address] Results Test Description Test Time Test Comments Results Result Comments Source RSV BY DFA 2020-11-24 00:00:00 Test Item Value Reference Range Interpretation Comme nts RSV BY DFA (test code = 10117) Negative SOURCE (test code = 72386) Not Provided RSV BY [id number] 00:00:00 Test Item Value Reference Range Interpretation Comments RSV BY DFA (test code = 93993) Negative SOURCE (test code = 11381) Not Provided SARS-CoV-2 (COVID-19) by RT-PCR (HIGH RISK)2020-11-23 00:00:00 Test Item Value Reference Range Interpretation Comments SARS-CoV-2 INTERPRETATION (test NEGATIVE code = 86901) SOURCE (test code = 79072) NOT SPECIFIED SARS-CoV-2 (COVID-19) by RT-PCR (HIGH RISK)2020-11-23 00:00:00 Test Item Value Reference Range Interpretation Comments SARS-CoV-2 INTERPRETATION (test NEGATIVE code = 50920) SOURCE (test code = 92590) NOT SPECIFIED VITAMIN D, 25 [id number] 00:00:00 Test Item Value Reference Range Interpretation Comments VITAMIN D, 25 OH (test code = 4958) 15 NG/ML VITAMIN D, 25 [id number] 00:00:00 Test Item Value Reference Range Interpretation Comments VITAMIN D, 25 OH (test code = 4958) 15 NG/ML [id number] 00:00:00 Test Item Value Reference Range Interpretation Comments TSH, THIRD GENERATION (test code 1.080 UIU/ML = 2821) [id number] 00:00:00 Test Item Value Reference Range Interpretation Comments TSH, THIRD GENERATION (test code 1.080 UIU/ML = 2821) [id number] 00:00:00 Test Item Value Reference Range Interpretation Comments TSH, THIRD GENERATION (test code 1.080 UIU/ML = 2821) CBC W/AUTO [id number] 00:00:00 Test Item Value Reference Range Interpretation Comments WBC (test code = 1001) 4.4 K/UL RBC (test code = 1002) 4.41 M/UL HEMOGLOBIN (test code = 1003) 14.0 G/DL HEMATOCRIT (test code = 1004) 40.4 % MCV (test code = 1005) 91.6 fL MCH (test code = 1006) 31.7 PG MCHC (test code = 1007) 34.7 G/DL RDW (test code = 1038) 11.9 % NEUTROPHILS (test code = 1008) 44.3 % LYMPHOCYTES (test code = 1010) 43.2 % MONOCYTES (test code = 1011) 8.9 % EOSINOPHILS (test code = 1012) 2.5 % BASOPHILS (test code = 1013) 0.9 % IMMATURE GRANULOCYTES (test 0.2 % code = 1036) NUCLEATED RBCS (test code = 0.0 /100WBC'S 1065) PLATELET COUNT (test code = 209 K/UL 1015) ABSOLUTE NEUTROPHILS (test code 1.94 K/UL = 1066) ABSOLUTE LYMPHOCYTES (test code 1.89 K/UL = 1067) ABSOLUTE MONOCYTES (test code = 0.39 K/UL 1068) ABSOLUTE EOSINOPHILS (test code 0.11 K/UL = 1040) ABSOLUTE BASOPHILS (test code = 0.04 K/UL 1069) ABS IMMATURE GRANULOCYTES (test 0.01 K/UL code = 1020) ABS NUCLEATED RBCS (test code = 0.00 K/UL 55703) CBC W/AUTO [id number] 00:00:00 Test Item Value Reference Range Interpretation Comments WBC (test code = 1001) 4.4 K/UL RBC (test code = 1002) 4.41 M/UL HEMOGLOBIN (test code = 1003) 14.0 G/DL HEMATOCRIT (test code = 1004) 40.4 % MCV (test code = 1005) 91.6 fL MCH (test code = 1006) 31.7 PG MCHC (test code = 1007) 34.7 G/DL RDW (test code = 1038) 11.9 % NEUTROPHILS (test code = 1008) 44.3 % LYMPHOCYTES (test code = 1010) 43.2 % MONOCYTES (test code = 1011) 8.9 % EOSINOPHILS (test code = 1012) 2.5 % BASOPHILS (test code = 1013) 0.9 % IMMATURE GRANULOCYTES (test 0.2 % code = 1036) NUCLEATED RBCS (test code = 0.0 /100WBC'S 1065) PLATELET COUNT (test code = 209 K/UL 1015) ABSOLUTE NEUTROPHILS (test code 1.94 K/UL = 1066) ABSOLUTE LYMPHOCYTES (test code 1.89 K/UL = 1067) ABSOLUTE MONOCYTES (test code = 0.39 K/UL 1068) ABSOLUTE EOSINOPHILS (test code 0.11 K/UL = 1040) ABSOLUTE BASOPHILS (test code = 0.04 K/UL 1069) ABS IMMATURE GRANULOCYTES (test 0.01 K/UL code = 1020) ABS NUCLEATED RBCS (test code = 0.00 K/UL 45335) CBC W/AUTO [id number] 00:00:00 Test Item Value Reference Range Interpretation Comments WBC (test code = 1001) 4.4 K/UL RBC (test code = 1002) 4.41 M/UL HEMOGLOBIN (test code = 1003) 14.0 G/DL HEMATOCRIT (test code = 1004) 40.4 % MCV (test code = 1005) 91.6 fL MCH (test code = 1006) 31.7 PG MCHC (test code = 1007) 34.7 G/DL RDW (test code = 1038) 11.9 % NEUTROPHILS (test code = 1008) 44.3 % LYMPHOCYTES (test code = 1010) 43.2 % MONOCYTES (test code = 1011) 8.9 % EOSINOPHILS (test code = 1012) 2.5 % BASOPHILS (test code = 1013) 0.9 % IMMATURE GRANULOCYTES (test 0.2 % code = 1036) NUCLEATED RBCS (test code = 0.0 /100WBC'S 1065) PLATELET COUNT (test code = 209 K/UL 1015) ABSOLUTE NEUTROPHILS (test code 1.94 K/UL = 1066) ABSOLUTE LYMPHOCYTES (test code 1.89 K/UL = 1067) ABSOLUTE MONOCYTES (test code = 0.39 K/UL 1068) ABSOLUTE EOSINOPHILS (test code 0.11 K/UL = 1040) ABSOLUTE BASOPHILS (test code = 0.04 K/UL 1069) ABS IMMATURE GRANULOCYTES (test 0.01 K/UL code = 1020) ABS NUCLEATED RBCS (test code = 0.00 K/UL 88712) SARS-COV-2 (COVID19), NAAT [ADDED]2020-03-04 00:00:00 Test Item Value Reference Range Interpretation Comments SARS-CoV-2 INTERPRETATION (test POSITIVE code = 01951) SOURCE (test code = 32933) NOT SPECIFIED SARS-COV-2 (COVID19), NAAT [ADDED]2020-03-04 00:00:00 Test Item Value Reference Range Interpretation Comments SARS-CoV-2 INTERPRETATION (test POSITIVE code = 34342) SOURCE (test code = 82612) NOT SPECIFIED - XR CHEST 2 [id number] 11:11:00 [facility] 1970 Sex: F FAX:Jn Barton MD [phone] [place]: St: REG Name: AMADA DURAN [facility] : 1970 Age/S: 49/F [address] [place] [address] Unit #: [id number] Loc: [place] [address] Phys: Jn Barrios MD Acct: [id number] Dis Date: Status: REG CLI PHONE #: [phone] Exam Date: 12/08/2019 1111 FAX #: [phone]: R06.02, SHORTNESS OF BREATH. EXAMS: CPT CODE: [id number] XR CHEST 2 V 97051 CLINICAL HISTORY:R06.02, SHORTNESS OF BREATH. COMPARISON: NONE PA and lateral films of the chest demonstrate that heart size is normal. Lung kaur are clear. No evidence of pneumonia or congestive failure is seen. Regional skeletal structures demonstrate no acute abnormality. IMPRESSION: No evidence of pneumonia or congestive failure is seen. at 1111 Reported and signed by: Kurt Lu M.D. CC: Jn Barrios MD Technologist: Genevieve Tapia RT(R) Trnscrd Date/Time/By: 12/08/2019 (1111) : By: Juan Orig Print D/T: S: 12/08/2019 (9133) PAGE 1 Signed [id number] (COVID-19) by RT-PCR (HIGH RISK)2019-09-18 00:00:00 Test Item Value Reference Range Interpretation Comments SARS-CoV-2 INTERPRETATION (test NEGATIVE code = 85339) SOURCE (test code = 11889) NOT SPECIFIED SARS-CoV-2 (COVID-19) by RT-PCR (HIGH RISK)2019-09-18 00:00:00 Test Item Value Reference Range Interpretation Comments SARS-CoV-2 INTERPRETATION (test NEGATIVE code = 86241) SOURCE (test code = 73628) NOT SPECIFIED CBC W/AUTO [id number] 00:00:00 Test Item Value Reference Range Interpretation Comments WBC (test code = 1001) 5.5 K/UL RBC (test code = 1002) 4.51 M/UL HEMOGLOBIN (test code = 1003) 14.2 G/DL HEMATOCRIT (test code = 1004) 41.2 % MCV (test code = 1005) 91.4 fL MCH (test code = 1006) 31.5 PG MCHC (test code = 1007) 34.5 G/DL RDW (test code = 1038) 11.7 % NEUTROPHILS (test code = 1008) 43.7 % LYMPHOCYTES (test code = 1010) 45.4 % MONOCYTES (test code = 1011) 7.8 % EOSINOPHILS (test code = 1012) 2.7 % BASOPHILS (test code = 1013) 0.4 % PLATELET COUNT (test code = 1015) 223 K/UL CBC W/AUTO [id number] 00:00:00 Test Item Value Reference Range Interpretation Comments WBC (test code = 1001) 5.5 K/UL RBC (test code = 1002) 4.51 M/UL HEMOGLOBIN (test code = 1003) 14.2 G/DL HEMATOCRIT (test code = 1004) 41.2 % MCV (test code = 1005) 91.4 fL MCH (test code = 1006) 31.5 PG MCHC (test code = 1007) 34.5 G/DL RDW (test code = 1038) 11.7 % NEUTROPHILS (test code = 1008) 43.7 % LYMPHOCYTES (test code = 1010) 45.4 % MONOCYTES (test code = 1011) 7.8 % EOSINOPHILS (test code = 1012) 2.7 % BASOPHILS (test code = 1013) 0.4 % PLATELET COUNT (test code = 1015) 223 K/UL CBC W/AUTO [id number] 00:00:00 Test Item Value Reference Range Interpretation Comments WBC (test code = 1001) 5.5 K/UL RBC (test code = 1002) 4.51 M/UL HEMOGLOBIN (test code = 1003) 14.2 G/DL HEMATOCRIT (test code = 1004) 41.2 % MCV (test code = 1005) 91.4 fL MCH (test code = 1006) 31.5 PG MCHC (test code = 1007) 34.5 G/DL RDW (test code = 1038) 11.7 % NEUTROPHILS (test code = 1008) 43.7 % LYMPHOCYTES (test code = 1010) 45.4 % MONOCYTES (test code = 1011) 7.8 % EOSINOPHILS (test code = 1012) 2.7 % BASOPHILS (test code = 1013) 0.4 % PLATELET COUNT (test code = 1015) 223 K/UL COMPREHENSIVE METABOLIC [id number] 00:00:00 Test Item Value Reference Range Interpretation Comments GLUCOSE (test code = 2217) 83 MG/DL BUN (test code = 2208) 17 MG/DL CREATININE (test code = 2214) 0.96 MG/DL eGFR AMER. (test code 80 ML/MIN/1.73 = 30034) eGFR NON- AMER. (test 69 ML/MIN/1.73 code = 89218) CALC BUN/CREAT (test code = 18 RATIO 2235) SODIUM (test code = 2231) 145 MEQ/L POTASSIUM (test code = 2228) 4.1 MEQ/L CHLORIDE (test code = 2215) 106 MEQ/L CARBON DIOXIDE (test code = 28 MEQ/L 2205) CALCIUM (test code = 2209) 9.5 MG/DL PROTEIN, TOTAL (test code = 6.8 G/DL 2228) ALBUMIN (test code = 2201) 4.2 G/DL CALC GLOBULIN (test code = 2.6 G/DL 2239) CALC A/G RATIO (test code = 1.6 RATIO 2234) BILIRUBIN, TOTAL (test code = 0.3 MG/DL 2206) ALKALINE PHOSPHATASE (test 93 U/L code = 2204) AST (test code = 2218) 35 U/L ALT (test code = 2219) 15 U/L COMPREHENSIVE METABOLIC [id number] 00:00:00 Test Item Value Reference Range Interpretation Comments GLUCOSE (test code = 2217) 83 MG/DL BUN (test code = 2208) 17 MG/DL CREATININE (test code = 2214) 0.96 MG/DL eGFR AMER. (test code 80 ML/MIN/1.73 = 99083) eGFR NON- AMER. (test 69 ML/MIN/1.73 code = 68651) CALC BUN/CREAT (test code = 18 RATIO 2235) SODIUM (test code = 2231) 145 MEQ/L POTASSIUM (test code = 2228) 4.1 MEQ/L CHLORIDE (test code = 2215) 106 MEQ/L CARBON DIOXIDE (test code = 28 MEQ/L 220) CALCIUM (test code = 2209) 9.5 MG/DL PROTEIN, TOTAL (test code = 6.8 G/DL 222) ALBUMIN (test code = 2201) 4.2 G/DL CALC GLOBULIN (test code = 2.6 G/DL 2240) CALC A/G RATIO (test code = 1.6 RATIO 2234) BILIRUBIN, TOTAL (test code = 0.3 MG/DL 220) ALKALINE PHOSPHATASE (test 93 U/L code = 2204) AST (test code = 2218) 35 U/L ALT (test code = 2219) 15 U/L
[2021-11-17 17:19] LABS: Urine Blood 2+ (Negative); Urine Glucose Negative (Negative); Urine Protein Negative (Negative); Urine Specific Gravity >=1.030 (1.005-1.030)
[2021-11-17] MEDS ORDERED: METHYLPREDNISOLONE 125 MG INJ ONE (17:27)
[2021-11-17] MEDS ORDERED: NA CHLORIDE 0.9% 50 ML IV ONE (17:28)
[2021-11-17] MEDS ORDERED: CEFTRIAXONE 1000 MG/VIAL ONE (17:28)
--- NOTE | 2021-11-17 17:36 | RAD REPORT ---
EXAM DESCRIPTION: RAD - Chest Single View - 11/17/2021 5:30 pm CLINICAL HISTORY: DYSPNEA COMPARISON: Chest Single View dated 07/15/2021; Chest Single View dated 07/13/2021; Chest Single View dated 02/05/2021; Chest Single View dated 02/01/2021 FINDINGS: Lines: None. Lungs: Diffuse increased prominence of the pulmonary interstitium. Pleural: No significant pleural effusions or pneumothorax. Cardiac: The heart size is within normal limits. Mediastinum: Within normal limits. Bones: No acute fractures. Other: None IMPRESSION: Increased prominence of the pulmonary interstitium could reflect either edema or atypica l infectious process.
[2021-11-17 17:51] LABS: Absolute Lymphocytes (CBC) 1.6 K/uL (0.7-4.9); Hematocrit 37.9 % (36.0-45.0); Lymphocytes % 19.8 % (15.3-44.8); MCV 94.1 fL (80-100); MPV 7.2 fL (7.6-11.3); RBC Red Blood Cell Count 4.02 M/uL (3.86-4.86)
[2021-11-17 18:00] LABS: Protime INR 1.08
[2021-11-17 18:13] LABS: Albumin 3.1 g/dL (3.4-5.0); Bilirubin Total 0.4 mg/dL (0.2-1.0); Potassium 3.5 mmol/L (3.5-5.1); Protein, Total 7.1 g/dL (6.4-8.2)
--- NOTE | 2021-11-17 18:44 | ER ---
Nurse's Notes [facility] Name: Roxanne Duran Age: 51 yrs Sex: Female : 1970 Arrival Date: 11/17/2021 Time: 17:01 Bed 14 Private MD: Diagnosis: COPD/ Chronic obstructive pulmonary disease with (acute) exacerbation;Hypoxia (88% on room air in ED, 83% at home) Presentation: 11/17 17:01 Chief complaint: EMS states: patient was home SOB, uses oxygen at home at 2 PM, O2 sat kr3 on scene was 88. Also has left leg pain with palpation in the calf area, pt states it feels like when I had a DVT before. Coronavirus screen: Vaccine status: Patient reports being unvaccinated. Client denies travel out of the [place] in the last 14 days. Ebola Screen: Patient denies travel to an Ebola-affected area in the 21 days before illness onset. Initial Sepsis Screen: Does the patient meet any 2 criteria? Temp <36.0*C (96.8*F)) or > 38.3*C (100.9*F). HR > 90 bpm. Yes Does the patient have a suspected source of infection? Yes: Productive cough/pneumonia. Risk Assessment: Do you want to hurt yourself or someone else? Patient reports no desire to harm self or others. Onset of symptoms was November 17, 2021. 17:01 Method Of Arrival: EMS kr3 17:01 Acuity: SHYLA 2 kr3 Triage Assessment: 17:11 General: Appears distressed, uncomfortable, Behavior is calm, cooperative, anxious. kr3 Pain: Complains of pain in right upper quadrant and left upper quadrant. 17:12 Respiratory: Respiratory effort is labored. kr3 Historical: - Allergies: 17:06 No Known Drug Allergies; kr3 - PMHx: 17:06 Anxiety; COPD; DVT Left leg; kr3 - PSHx: 17:06 partial hysterectomy; kr3 - Immunization history:: Adult Immunizations not up to date. - Social history:: Smoking status: Patient/guardian denies using tobacco, Stopped _ months ago 6. Screenin:14 Abuse screen: Denies threats or abuse. Nutritional screening: No deficits noted. kr3 Tuberculosis screening: No symptoms or risk factors identified. Fall Risk. Assessment: 17:10 Reassessment: code sepsis called 1710. kr3 17:45 Reassessment: No changes from previously documented assessment. Patient and/or family kr3 updated on plan of care and expected duration. Pain level reassessed. Patient is alert, oriented x 3, equal unlabored respirations, skin warm/dry/pink. 18:30 Reassessment: No changes from previously documented assessment. ll1 18:58 Reassessment: No changes from previously documented assessment. Patient and/or family kr3 updated on plan of care and expected duration. Pain level reassessed. Vital Signs: 17:01 BP 91 / 65; Pulse 98; Resp 20; Temp 99.0; Pulse Ox 98% on 3 lpm NC; Weight 84.82 kg; kr3 Height 5 ft. 4 in. (162.56 cm); Pain 7/10; 18:00 BP 104 / 73; Pulse 90; Pulse Ox 100% on 2 lpm NC; ll1 18:57 BP 113 / 82; Pulse 90; Pulse Ox 99% on 2 lpm NC; ll1 17:01 Body Mass Index 32.10 (84.82 kg, 162.56 cm) kr3 ED Course: 17:01 Patient arrived in ED. kr3 17:06 Arm band placed on Patient placed in an exam room, on a stretcher. kr3 17:11 Triage completed. kr3 17:11 Rickie Enamorado MD is Attending Physician. kdr 17:14 Alyce Douglas RN is Primary Nurse. kr3 17:25 EKG done, by ED staff, reviewed by Rickie Enamorado MD. kr3 17:30 Inserted saline lock: 22 gauge in right antecubital area, using aseptic technique. kr3 Blood collected. 17:45 Patient has correct armband on for positive identification. Bed in low position. Call kr3 light in reach. Side rails up X 1. Client placed on continuous cardiac and pulse oximetry monitoring. NIBP monitoring applied. monitor tech on. 17:45 Second set of blood cultures drawn. kr3 18:18 Troponin High Sensitivity Sent. kr3 18:41 Akin Portillo MD is Hospitalizing Provider. kdr 19:33 Primary Nurse role handed off by Alyce Douglas, STEVE wm 19:42 Ebrottie, Kouassi, RN is Primary Nurse. ke1 Administered Medications: 18:18 Drug: Rocephin - (cefTRIAXone) 1 grams Route: IVPB; Infused Over: 30 mins; Site: right kr3 antecubital; 18:50 Follow up: Response: No adverse reaction; IV Status: Completed infusion; IV Intake: ll1 100ml 18:18 Drug: SOLU-Medrol (methylPrednisoLONE) 125 mg Route: IVP; Site: right antecubital; kr3 18:50 Follow up: Response: No adverse reaction ll1 19:31 Drug: Albuterol - atroVENT (ipratropium) (3:1) (2.5 mg - 0.5 mg) 3 ml Route: Nebulizer; ke1 Intake: 18:50 IV: 100ml; Total: 100ml. ll1 Outcome: 18:43 Decision to Hospitalize by Provider. kdr 21:52 Patient left the ED. ke1 Signatures: Rickie Enamorado MD MD kdr Lewis, Lynsay, RN RN 1 Leora Zhang Kouassi, RN RN ke1 Alyce Douglas RN RN kr3 Corrections: (The following items were deleted from the chart) 17:15 17:01 Chief complaint: EMS states: patient was home SOB, uses oxygen at home at 2 PM, kr3 O2 sat on scene was 88 kr3 18:50 17:01 BP 91 / 65; Pulse 98bpm; Resp 20bpm; Pulse Ox 98% 3 lpm Nasal Cannula; 84.82 kg; kr3 Height 5 ft. 4 in.; BMI: 32.1; Pain 7/10; kr3
--- NOTE | 2021-11-17 18:44 | EDPHYS ---
Physician Documentation [facility] Name: Roxanne Duran Age: 51 yrs Sex: Female : 1970 Arrival Date: 11/17/2021 Time: 17:01 Bed 14 Private MD: ED Physician Rickie Enamorado HPI: 11/17 18:43 This 51 yrs old Unknown Female presents to ER via EMS with complaints of Shortness of kdr breath. 18:50 EMS was called to the patient's home because she was becoming increasingly short of kdr breath. Patient noted that her oxygen saturation was 83% at home off of oxygen when going to the bathroom. When she was able to get back to her bedside and put her oxygen and monitor on, she noted her saturation to be 87%.. 18:51 Onset: The symptoms/episode began/occurred gradually, 2 week(s) ago. Severity of kdr symptoms: At their worst the symptoms were mild moderate just prior to arrival, in the emergency department the symptoms have improved mildly. The patient has experienced similar episodes in the past, chronically. The patient has not recently seen a physician. Historical: - Allergies: 17:06 No Known Drug Allergies; kr3 - PMHx: 17:06 Anxiety; COPD; DVT Left leg; kr3 - PSHx: 17:06 partial hysterectomy; kr3 - Immunization history:: Adult Immunizations not up to date. - Social history:: Smoking status: Patient/guardian denies using tobacco, Stopped _ months ago 6. ROS: 18:51 Constitutional: Negative for fever, chills, and weight loss, Eyes: Negative for injury, kdr pain, redness, and discharge, Neck: Negative for injury, pain, and swelling, Cardiovascular: Negative for chest pain, palpitations, and edema, Abdomen/GI: Negative for abdominal pain, nausea, vomiting, diarrhea, and constipation, Back: Negative for injury and pain, : Negative for injury, bleeding, discharge, and swelling, MS/Extremity: Negative for injury and deformity, Skin: Negative for injury, rash, and discoloration, Neuro: Negative for headache, weakness, numbness, tingling, and seizure activity. Psych: Negative for depression, anxiety, suicide ideation, homicidal ideation, and hallucinations, Allergy/Immunology: Negative for hives, rash, and allergies, Endocrine: Negative for neck swelling, polydipsia, polyuria, polyphagia, and marked weight changes, Hematologic/Lymphatic: Negative for swollen nodes, abnormal bleeding, and unusual bruising. 18:51 Respiratory: Positive for cough, "sounds productive", dyspnea on exertion, shortness of breath, wheezing, Negative for hemoptysis, pleurisy. Exam: 18:53 Constitutional: This is a well developed, well nourished patient who is awake, alert, kdr and in mild to moderate distress. Head/Face: Normocephalic, atraumatic. Eyes: Pupils equal round and reactive to light, extra-ocular motions intact. Lids and lashes normal. Conjunctiva and sclera are non-icteric and not injected. Cornea within normal limits. Periorbital areas with no swelling, redness, or edema. Neck: Trachea midline, no thyromegaly or masses palpated, and no cervical lymphadenopathy. Supple, full range of motion without nuchal rigidity, or vertebral point tenderness. No Meningismus. Chest/axilla: Normal chest wall appearance and motion. Nontender with no deformity. No lesions are appreciated. Cardiovascular: Regular rate and rhythm with a normal S1 and S2. No gallops, murmurs, or rubs. Normal PMI, no JVD. No pulse deficits. Abdomen/GI: Soft, non-tender, with normal bowel sounds. No distension or tympany. No guarding or rebound. No evidence of tenderness throughout. Back: No spinal tenderness. No costovertebral tenderness. Full range of motion. Skin: Warm, dry with normal turgor. Normal color with no rashes, no lesions, and no evidence of cellulitis. Neuro: Awake and alert, GCS 15, oriented to person, place, time, and situation. Cranial nerves II-XII grossly intact. Motor strength 5/5 in all extremities. Sensory grossly intact. Cerebellar exam normal. Normal gait. Psych: Awake, alert, with orientation to person, place and time. Behavior, mood, and affect are within normal limits. 18:53 Respiratory: mild respiratory distress is noted, Respirations: labored breathing, that is mild, Breath sounds: decreased breath sounds, that are moderate, are scattered, wheezing: inspiratory that is mild, is heard diffusely. Vital Signs: 17:01 BP 91 / 65; Pulse 98; Resp 20; Temp 99.0; Pulse Ox 98% on 3 lpm NC; Weight 84.82 kg; kr3 Height 5 ft. 4 in. (162.56 cm); Pain 7/10; 18:00 BP 104 / 73; Pulse 90; Pulse Ox 100% on 2 lpm NC; ll1 18:57 BP 113 / 82; Pulse 90; Pulse Ox 99% on 2 lpm NC; ll1 17:01 Body Mass Index 32.10 (84.82 kg, 162.56 cm) kr3 MDM: 18:43 Patient medically screened. kdr 18:53 Data reviewed: vital signs, nurses notes, lab test result(s), radiologic studies. kdr Counseling: I had a detailed discussion with the patient and/or guardian regarding: the historical points, exam findings, and any diagnostic results supporting the discharge/admit diagnosis, lab results, radiology results, the need for further work-up and treatment in the hospital. 11/17 17:12 Order name: Blood Culture Adult (2) [facility] 11/17 17:12 Order name: CBC with Diff [facility] 11/17 17:12 Order name: CMP [facility] 11/17 17:12 Order name: Lactate [facility] 11/17 17:12 Order name: Protime (+inr) [facility] 11/17 17:12 Order name: Ptt, Activated [facility] 11/17 17:19 Order name: Urine Dipstick-Ancillary; Complete Time: 18:06 EDMS 11/17 17:53 Order name: CBC with Automated Diff; Complete Time: 18:06 EDMS 11/17 18:00 Order name: Glucose, Ancillary Testing; Complete Time: 18:06 EDMS 11/17 18:01 Order name: Protime (+INR); Complete Time: 18:06 EDMS 11/17 18:01 Order name: PTT, Activated Partial Thromb; Complete Time: 18:06 EDMS 11/17 18:07 Order name: Troponin High Sensitivity [facility] 11/17 18:08 Order name: Lactate; Complete Time: 18:32 EDMS 11/17 18:13 Order name: Comprehensive Metabolic Panel; Complete Time: 18:32 EDMS 11/17 17:12 Order name: Chest Single View XRAY [facility] 11/17 17:12 Order name: Accucheck; Complete Time: 17:52 [facility] 11/17 17:12 Order name: Cardiac monitoring; Complete Time: 17:19 [facility] 11/17 17:12 Order name: EKG - Nurse/Tech; Complete Time: 17:19 kdr 11/17 17:37 Order name: RAD; Complete Time: 18:06 EDMS 11/17 18:42 Order name: Troponin High Sensitivity; Complete Time: 18:47 EDMS 11/17 18:50 Order name: COVID-19 SARS RT PCR (Document "Date of Onset" if Symptomatic) ss 11/17 18:50 Order name: ABG kdr 11/17 18:52 Order name: US Extremity Venous W Compression Max kdr 11/17 18:53 Order name: CT Chest For PE Angio kdr 11/17 19:31 Order name: CT; Complete Time: 20:24 EDMS 11/17 20:24 Order name: SARS-COV-2 RT PCR EDCT 11/17 20:27 Order name: US EDCT 11/17 17:12 Order name: IV Saline Lock - Large Bore; Complete Time: 17:44 kdr 11/17 17:12 Order name: Labs collected and sent; Complete Time: 17:44 kdr 11/17 17:12 Order name: O2 Per Protocol; Complete Time: 17:13 kdr 11/17 17:12 Order name: O2 Sat Monitoring; Complete Time: 17:13 kdr 11/17 17:12 Order name: Urine Dipstick-Ancillary (obtain specimen); Complete Time: 17:14 kdr Administered Medications: 18:18 Drug: Rocephin - (cefTRIAXone) 1 grams Route: IVPB; Infused Over: 30 mins; Site: right kr3 antecubital; 18:50 Follow up: Response: No adverse reaction; IV Status: Completed infusion; IV Intake: ll1 100ml 18:18 Drug: SOLU-Medrol (methylPrednisoLONE) 125 mg Route: IVP; Site: right antecubital; kr3 18:50 Follow up: Response: No adverse reaction ll1 19:31 Drug: Albuterol - atroVENT (ipratropium) (3:1) (2.5 mg - 0.5 mg) 3 ml Route: Nebulizer; ke1 Disposition Summary: 11/17/21 18:43 Hospitalization Ordered Hospitalization Status: Observation kdr Provider: Akin Portillo Location: Telemetry/MedSurg (observation) kdr Condition: Fair kdr Problem: an acute exacerbation kdr Symptoms: are unchanged kdr Bed/Room Type: Standard kdr Room Assignment: 415(11/17/21 20:34) cg Diagnosis - COPD/ Chronic obstructive pulmonary disease with (acute) exacerbation kdr - Hypoxia (88% on room air in ED, 83% at home) kdr Forms: - Medication Reconciliation Form kdr - SBAR form kdr Signatures: Dispatcher [employer] EDMS Rickie Enamorado MD MD kdr Edwin Mata, SUPERVISOR REACTOR FUELING-C SUPERVISOR REACTOR FUELING-Cla1 Shelby Arriaga RN RN cg Radha Multani RN RN ke1 Alyce Douglas RN RN kr3 Sudha Sams RN ll1 Corrections: (The following items were deleted from the chart) 20:34 18:43 kdr cg
[2021-11-17] MEDS ORDERED: ALBUTEROL 2.5 MG/3 ML NEB SOL ONE (19:18)
[2021-11-17] MEDS ORDERED: IPRATROPIUM BROM 0.5MG/2.5ML ONE (19:18)
--- NOTE | 2021-11-17 19:30 | P.HP ---
Certification for Inpatient Patient admitted to: Observation With expected LOS: <2 Midnights Patient will require the following post-hospital care: None Practitioner: I am a practitioner with admitting privileges, knowledge of patient current condition, hospital course, and medical plan of care. Services: Services provided to patient in accordance with Admission requirements found in Title 42 Section 412.3 of the Code of Federal Regulations <Edwin Mata - Last Filed: 11/17/21 19:27> Patient History Date of Service: 11/17/21 Primary Care Provider: Lane beverly Reason for admission: COPD exacerbation History of Present Illness: 51-year-old female with history of COPD on chronic steroidshome oxygen, DVT on Xarelto presents emergency department for shortness of breath. She reports that she has oxygen to use and usually she only has these at night from the past 2 months she has been needing to use her oxygen pretty much 24 hours a day. She reports over the course last few days significant worsening in her dyspnea as well as wheezing. She has been on prednisone 10 mg daily at home for the past couple of months as well as Trelegy inhaler. She is brought to the emergency department today for evaluation of dyspnea/COPD exacerbation. Patient received IV steroids, nebulizer treatments, IV magnesium the emergency department still was having expiratory wheezing and dyspnea ED provider wishes to admit under observation for COPD exacerbation. - Past Medical/Surgical History Diabetic: No -: COPD-home O2/steroids -: ANXIETY -: DVT -: HYSTERECTOMY -: cataract surgery R eye Psychosocial/ Personal History: Patient lives at home with her children is currently unemployed - Family History Mother -: Lung disease, Other (see notes) Notes: OXYGEN DEPENDENT, SMOKER. depresssion Father -: Lung disease, GI disease, Kidney disease Notes: SMOKER - Social History Smoking Status: Former smoker Alcohol use: No CD- Drugs: No Caffeine use: Yes Place of Residence: Home <Edwin Mata - Last Filed: 11/17/21 19:27> Date of Service: 11/18/21 <Akin Portillo - Last Filed: 11/18/21 11:32> Allergies No Known Drug Allergies Allergy (Verified 11/17/21 22:34) Unknown No Known Allergies Allergy (Uncoded 12/25/19 22:10) Unknown Home Medications: Fluticasone/Umeclidin/Vilanter [Trelegy Ellipta 100-62.5-25] 1 puff PO DAILY 02/02/21 Albuterol Neb [Proventil 0.083% Neb Soln] 2.5 mg NEB Q6HP PRN #120 amp 02/06/21 Albuterol Sulfate [Proair Hfa] 2 puff IH Q4H 07/14/21 Ipratropium Neb [Atrovent*] 0.5 mg NEB [id number] PRN 07/14/21 Venlafaxine HCl [Venlafaxine HCl ER] 1 tab PO DAILY 07/14/21 Rivaroxaban [Xarelto] 1 each PO DAILY 11/17/21 Review of Systems 10-point ROS is otherwise unremarkable Respiratory: Cough, Dry, Shortness of Breath, SOB with Excertion, Pleuritic Pain <Edwin Mata - Last Filed: 11/17/21 19:27> Physical Examination - Physical Exam General: Alert, In no apparent distress, Oriented x3 HEENT: Atraumatic, PERRLA, Mucous membr. moist/pink, EOMI, Sclerae nonicteric Neck: Supple, 2+ carotid pulse no bruit, No LAD, Without JVD or thyroid abnormality Respiratory: Diminished, Expiratory wheezes Cardiovascular: No edema, Regular rate/rhythm, Normal S1 S2 Gastrointestinal: Normal bowel sounds, No tenderness Musculoskeletal: No tenderness Integumentary: No rashes Neurological: Normal speech, Normal strength at 5/5 x4 extr, Normal tone, Normal affect - Studies Laboratory Data (last 24 hrs) 11/17/21 17:30: PT 11.9, INR 1.08, APTT 33.9 11/17/21 17:30: Sodium 140, Potassium 3.5, BUN 11, Creatinine 0.98, Glucose 135 H, Total Bilirubin 0.4, AST 15, ALT 14, Alkaline Phosphatase 83 11/17/21 17:30: WBC 7.80, Hgb 12.7, Hct 37.9, Plt Count 221 <Edwin Mata - Last Filed: 11/17/21 19:27> - Studies Laboratory Data (last 24 hrs) 11/17/21 17:30: PT 11.9, INR 1.08, APTT 33.9 11/17/21 17:30: Sodium 140, Potassium 3.5, BUN 11, Creatinine 0.98, Glucose 135 H, Total Bilirubin 0.4, AST 15, ALT 14, Alkaline Phosphatase 83 11/17/21 17:30: WBC 7.80, Hgb 12.7, Hct 37.9, Plt Count 221 <Akin Portillo - Last Filed: 11/18/21 11:32> Assessment and Plan - Plan Assessment: Acute on chronic hypoxic respiratory failure secondary to COPD exacerbationon chronic home O2/steroids History of DVT Plan: Acute on chronic hypoxic respiratory failure secondary to COPD exacerbationon chronic home O2/steroids: Continue supplemental oxygen as necessary. Will provide with increased dose steroids, ICS, scheduled nebs. Pulmonology consult in place we will have patient utilize incentive parameter during hospitalization as well. Daily saturations on 2 L per nasal cannula. Appreciate further input from pulmonology. History of DVT: Continue Xarelto, ultrasound lower extremity as well as CT PE protocol ordered by ED provider and pending. Patient reports she has been compliant with her Xarelto. DVT PPX: Continue Xarelto Code status: Full Discharge Plan: Home Plan to discharge in: 24 Hours - Advance Directives Does patient have a Living Will: No Does patient have a Durable POA for Healthcare: No - Code Status/Comfort Care Code Status Assessed: Yes (Full code) Critical Care: No Time Spent Managing Pts Care (In Minutes): 55 <Edwin Mata - Last Filed: 11/17/21 19:27> Physician Review: Patient Assessed, Agree with Above Assessment and Plan <Akin Portillo - Last Filed: 11/18/21 11:32>
--- NOTE | 2021-11-17 19:30 | RAD REPORT ---
EXAM DESCRIPTION: CT - Chest For Pe Angio - 11/17/2021 7:18 pm CLINICAL HISTORY: SOB COMPARISON: Chest For Pe Angio dated 07/13/2021; Chest For Pe Angio dated 12/18/2020; Chest For Pe An jason dated 05/31/2020; Chest For Pe Angio dated 04/29/2020 TECHNIQUE: Dynamically enhanced axial 3 mm thick images of the chest were obtained during administra tion of <100> mL Isovue 370 IV contrast. Coronal and oblique reconstruction images were generated and reviewed. Exam utilizes a protocol for optimal evaluation of pulmonary arterial tree. Maximum intensity projections 3D imaging was utilized All CT scans are performed using dose optimization technique as appropriate and may include automated exposure control or mA/KV adjustment according to patient size. FINDINGS: Chest Wall: No suspicious thyroid nodules or pathologic lymphadenopathy. Lungs: Scarring or atelectasis in the lingula. Emphysema. Pleura: No significant effusions or pneumothorax. Mediastinum/debbie: Mild right hilar and mediastinal adenopathy is unchanged. Pulmonary arteries/Aorta: No filling defect identified. No aortic aneurysm. Heart: No significant pericardial effusion. Normal heart size. Upper abdomen: No acute abnormality. Bones: No acute abnormality. IMPRESSION: Negative for pulmonary embolism. Emphysema. No acute findings identified.
[2021-11-17 19:58] LABS: Arterial Blood Carboxyhemoglob 2.5 % (0-1.5); Blood Gas Oxyhemoglobin 94.9 % (94-97); Blood O2 Saturation 98.5 % (92-98.5)
--- NOTE | 2021-11-17 20:27 | RAD REPORT ---
EXAM DESCRIPTION: US - Extrem Venous W Compress Max - 11/17/2021 7:49 pm CLINICAL HISTORY: SWELLING COMPARISON: Head Brain Wo Cont dated 03/29/2018; Head Brain Wo Cont dated 02/24/2018Extrem Venous W Comp ress Max dated 07/13/2021 TECHNIQUE: Real-time sonographic evaluation of the lower extremity deep venous systems was performed using color Doppler, grayscale, and compression. FINDINGS: Bilateral lower extremities. Color Doppler, grayscale, and spectral analysis was performed. Small amount of echogenic thrombus along the wall of the popliteal vein. This is nonocclusive. The re maining veins in the right and left lower extremity are completely compressible. IMPRESSION: Eccentric nonocclusive thrombus in the left popliteal vein probably representing a small volume of residual thrombus that was first identified on the lower extremity Doppler from 07/13/2021 .
[2021-11-17] MEDS: ALBUTEROL 2.5 MG/3 ML NEB SOL NEB SCH (21:05)
[2021-11-17] MEDS: DULERA 200/5 (MOMETASONE/FORMOTEROL) INHALER IH SCH (21:05)
[2021-11-17] MEDS ORDERED: ONDANSETRON 4 MG/2 ML VIAL IV PRN (21:05)
[2021-11-17] MEDS: IPRATROPIUM BROM 0.5MG/2.5ML NEB SCH (21:05)
[2021-11-17 22:43] VITALS: BMI 32.1
[2021-11-17] MEDS: predniSONE 20 MG TAB PO SCH (22:54)
[2021-11-17] MEDS: MELATONIN 5 MG TABLET PO PRN (23:06)
[2021-11-18] MEDS: IPRATROPIUM BROM 0.5MG/2.5ML NEB SCH ×4 (01:10→20:15)
[2021-11-18] MEDS: ALBUTEROL 2.5 MG/3 ML NEB SOL NEB SCH ×4 (01:10→20:15)
[2021-11-18 06:39] LABS: Absolute Lymphocytes (CBC) 0.8 K/uL (0.7-4.9); Hematocrit 35.3 % (36.0-45.0); Lymphocytes % 10.5 % (15.3-44.8); MPV 7.4 fL (7.6-11.3); RBC Red Blood Cell Count 3.76 M/uL (3.86-4.86)
[2021-11-18 06:57] LABS: Albumin 2.8 g/dL (3.4-5.0); Bilirubin Total 0.1 mg/dL (0.2-1.0); Magnesium 2.4 mg/dL (1.8-2.4); Potassium 4.3 mmol/L (3.5-5.1); Protein, Total 6.7 g/dL (6.4-8.2)
[2021-11-18] MEDS: predniSONE 20 MG TAB PO SCH ×2 (08:04→22:46)
[2021-11-18] MEDS: DULERA 200/5 (MOMETASONE/FORMOTEROL) INHALER IH SCH ×2 (08:04→21:00)
[2021-11-18] MEDS: ACETAMINOPHEN 325 MG TABLET PO PRN ×2 (08:04→16:32)
--- NOTE | 2021-11-18 11:36 | P.PN ---
Subjective Date of Service: 11/18/21 Primary Care Provider: Safford siria Chief Complaint: COPD exacerbation Subjective: No new changes No acute events since admission. She reports significant shortness of breath over the last 1-2 weeks. Although she is on chronic home oxygen, she mentions that her SpO2 readings have been dropping to the low-80s at home with ambulation. She reports associated cough and wheezing. Review of Systems 10-point ROS is otherwise unremarkable Respiratory: Cough, Dry, Shortness of Breath, Wheezing Physical Examination - Vital Signs Temperature: 97.4 F Blood Pressure: 111/72 Pulse: 96 Respirations: 20 Pulse Ox (%): 92 - Physical Exam General: Alert, In no apparent distress, Oriented x3 HEENT: Atraumatic, PERRLA, Mucous membr. moist/pink, EOMI, Sclerae nonicteric Neck: Supple, JVD not distended Respiratory: Expiratory wheezes (end-expiratory) Cardiovascular: No edema, Regular rate/rhythm, Normal S1 S2, No gallops, No rubs, No murmurs Gastrointestinal: Normal bowel sounds, Soft and benign, Non-distended, No tenderness, No rebound, No guarding Musculoskeletal: No clubbing Integumentary: No rashes Neurological: Normal speech, Cranial nerves 3-12 intact, Normal affect - Studies Laboratory Data (last 24 hrs) 11/17/21 17:30: PT 11.9, INR 1.08, APTT 33.9 11/17/21 17:30: Sodium 140, Potassium 3.5, BUN 11, Creatinine 0.98, Glucose 135 H, Total Bilirubin 0.4, AST 15, ALT 14, Alkaline Phosphatase 83 11/17/21 17:30: WBC 7.80, Hgb 12.7, Hct 37.9, Plt Count 221 Assessment And Plan - Plan # Acute on Chronic Hypoxic Respiratory Failure - likely secondary to Acute Chronic Obstructive Pulmonary Disease Exacerbation She reports that her SpO2 readings were dropping to the low-80s at home. Currently, she is on 2 L nasal cannula, with improvement of her SpO2 readings to 100 %. - Evaluation thus far: - Troponin = 4.2 - ABG on 2 L NC = pH 7.36, PCO2 48.7, PO2 121.0 - Chest x-ray = "increased prominence of the pulmonary interstitium could reflect either edema or atypical infectious process" - CT chest angiogram = "negative for pulmonary embolism. Emphysema. No acute findings identified." - Management plan: - Consulted Pulmonary Medicine - recommendations appreciated - Steroids and bronchodilator therapy per Pulm - Consulted Respiratory Therapy - Supplemental oxygen to maintain SpO2 > 92% - Started azithromycin for anti-inflammatory effect - Continue DuoNebs q4-6hr - PRN benzonatate, guaifenesin - Encouraged incentive spirometry # Non-Occlusive Left Popliteal Deep Venous Thrombosis # Medication Noncompliance Reports missing multiple doses of rivaroxaban - Bilateral lower extremity Doppler = "eccentric nonocclusive thrombus in the left popliteal vein probably representing a small volume of residual thrombus that was first identified on the lower extremity Doppler from 07/13/2021." - Continue home rivaroxaban # Microscopic Hematuria - Advised she follow-up with PCP for repeat urinalysis and further evaluation if indicated Akin Portillo M.D.
[2021-11-18] MEDS ORDERED: BENZONATATE 100 MG CAP PO PRN (11:48)
--- NOTE | 2021-11-18 11:49 | P.CNS ---
Date of Consult: 11/18/21 Primary Care Provider: Lane beverly Chief Complaint: COPD exacerbation History of Present Illness: Patient is 51 years of age on chronic steroids history of COPD is on Xarelto for history of DVT been complaining of worsening dyspnea with wheezing he is comp liant with her inhalers As of the past 2 weeks has productive sputum has O2 desaturation at night also complaining of chest pains worse with inspiration Allergies No Known Drug Allergies Allergy (Verified 11/17/21 22:34) Unknown No Known Allergies Allergy (Uncoded 12/25/19 22:10) Unknown Home Medications: Fluticasone/Umeclidin/Vilanter [Trelegy Ellipta 100-62.5-25] 1 puff PO DAILY 02/02/21 Albuterol Neb [Proventil 0.083% Neb Soln] 2.5 mg NEB Q6HP PRN #120 amp 02/06/21 Albuterol Sulfate [Proair Hfa] 2 puff IH Q4H 07/14/21 Ipratropium Neb [Atrovent*] 0.5 mg NEB [id number] PRN 07/14/21 Venlafaxine HCl [Venlafaxine HCl ER] 1 tab PO DAILY 07/14/21 Rivaroxaban [Xarelto] 1 each PO DAILY 11/17/21 - Past Medical/Surgical History Diabetic: No -: COPD-home O2/steroids -: ANXIETY -: DVT -: HYSTERECTOMY -: cataract surgery R eye Psychosocial/ Personal History: Patient lives at home with her children is currently unemployed - Family History Mother Medical History: Lung disease, Other (see notes) Notes: OXYGEN DEPENDENT, SMOKER. depresssion Father Medical History: Lung disease, GI disease, Kidney disease Notes: SMOKER - Social History Smoking Status: Current every day smoker Alcohol use: No CD- Drugs: No Caffeine use: Yes Place of Residence: Home Review of Systems Respiratory: Cough, Shortness of Breath Physical Examination Temp Pulse Resp BP Pulse Ox 97.4 F 96 H 20 111/72 92 11/18/21 11:48 11/18/21 11:48 11/18/21 11:48 11/18/21 11:48 11/18/21 11:48 General: Alert, In no apparent distress, Mild distress Respiratory: Expiratory wheezes Cardiovascular: No edema, Regular rate/rhythm, Normal S1 S2 Laboratory Data (last 24 hrs) 11/17/21 17:30: PT 11.9, INR 1.08, APTT 33.9 11/17/21 17:30: Sodium 140, Potassium 3.5, BUN 11, Creatinine 0.98, Glucose 135 H, Total Bilirubin 0.4, AST 15, ALT 14, Alkaline Phosphatase 83 11/17/21 17:30: WBC 7.80, Hgb 12.7, Hct 37.9, Plt Count 221 - Problems (1) COPD exacerbation Onset Date: 05/20/17 Current Visit: No Status: Acute Plan: Patient is 51 years of age admitted with COPD exacerbation compliant with her medications some productive phlegm start on p.o. levofloxacin sputum cultures will need to check room air pulse ox room air ABGs patient requesting oxygen room air sat was 88% today labs reviewed chemistry unremarkable CT chest is clear no evidence of DVT or PE possible discharge tomorrow may qualify for home O2 continue with high-dose levofloxacin and prednisone 10 mg twice a day follow- up with me in 2 weeks
[2021-11-18] MEDS ORDERED: AZITHROMYCIN IV 500 MG in NA CHLORIDE 0.9% 250 ML IVPB SCH (12:00)
[2021-11-18] MEDS: levoFLOXacin 750 MG TAB PO SCH (12:22)
[2021-11-18 13:01] LABS: Arterial Blood Carboxyhemoglob 0.8 % (0-1.5); Blood O2 Saturation 96.8 % (92-98.5)
[2021-11-18] MEDS ORDERED: RIVAROXABAN 15 MG TABLET PO SCH (17:00)
[2021-11-18] MEDS: ALPRAZOLAM 0.25 MG TABLET PO PRN (18:50)
[2021-11-18] MEDS: MELATONIN 5 MG TABLET PO PRN (22:46)
[2021-11-19] MEDS: IPRATROPIUM BROM 0.5MG/2.5ML NEB SCH ×4 (01:45→20:05)
[2021-11-19] MEDS: ALBUTEROL 2.5 MG/3 ML NEB SOL NEB SCH ×4 (01:45→20:05)
[2021-11-19] MEDS: ACETAMINOPHEN 325 MG TABLET PO PRN ×2 (08:10→21:51)
[2021-11-19] MEDS: DULERA 200/5 (MOMETASONE/FORMOTEROL) INHALER IH SCH ×2 (08:10→21:52)
[2021-11-19] MEDS: predniSONE 20 MG TAB PO SCH ×2 (08:10→21:51)
[2021-11-19] MEDS: levoFLOXacin 750 MG TAB PO SCH (08:10)
[2021-11-19] MEDS ORDERED: INFLUENZA VACCINE (for 6+ mo) 0.5 ML DOSE IMVAC ONE (12:00)
--- NOTE | 2021-11-19 14:39 | P.PN ---
Subjective Date of Service: 11/19/21 Primary Care Provider: [facility] Chief Complaint: COPD exacerbation No acute events overnight. Per RN, she has been desatting into the 80s with ambulation. She reports that her shortness of breath and cough are unchanged compared to yesterday. She reports compliance with the incentive spirometer. Review of Systems 10-point ROS is otherwise unremarkable Respiratory: Cough, Dry, Shortness of Breath, Wheezing Physical Examination - Vital Signs Temperature: 97.8 F Blood Pressure: 113/66 Pulse: 96 Respirations: 16 Pulse Ox (%): 91 Assessment And Plan - Plan - Physical Exam General: Alert, In no apparent distress, Oriented x3 HEENT: Atraumatic, PERRLA, Mucous membr. moist/pink, EOMI, Sclerae nonicteric Neck: Supple, JVD not distended Respiratory: Expiratory wheezes (end-expiratory) Cardiovascular: No edema, Regular rate/rhythm, Normal S1 S2, No gallops, No rubs, No murmurs Gastrointestinal: Normal bowel sounds, Soft and benign, Non-distended, No tenderness, No rebound, No guarding Musculoskeletal: No clubbing Integumentary: No rashes Neurological: Normal speech, Cranial nerves 3-12 intact, Normal affect # Acute on Chronic Hypoxic Respiratory Failure - likely secondary to Acute Chronic Obstructive Pulmonary Disease Exacerbation She reports that her SpO2 readings were dropping to the low-80s at home. Currently, she is on 2 L nasal cannula, with improvement of her SpO2 readings to 100 %. - Evaluation thus far: - Troponin = 4.2 - ABG on 2 L NC = pH 7.36, PCO2 48.7, PO2 121.0 - Chest x-ray = "increased prominence of the pulmonary interstitium could reflect either edema or atypical infectious process" - CT chest angiogram = "negative for pulmonary embolism. Emphysema. No acute findings identified." - Management plan: - Consulted Pulmonary Medicine - recommendations appreciated - Steroids and bronchodilator therapy per Pulm - Consulted Respiratory Therapy - Supplemental oxygen to maintain SpO2 > 92% - Started azithromycin for anti-inflammatory effect - Continue DuoNebs q4-6hr - PRN benzonatate, guaifenesin - Encouraged incentive spirometry - Plan for ambulatory oxygen testing today - Appreciate Pulm assistance # Non-Occlusive Left Popliteal Deep Venous Thrombosis # Medication Noncompliance Reports missing multiple doses of rivaroxaban - Bilateral lower extremity Doppler = "eccentric nonocclusive thrombus in the left popliteal vein probably representing a small volume of residual thrombus that was first identified on the lower extremity Doppler from 07/13/2021." - Continue home rivaroxaban # Microscopic Hematuria - Advised she follow-up with PCP for repeat urinalysis and further evaluation if indicated Akin Portillo M.D.
[2021-11-19] MEDS: RIVAROXABAN 20 MG TABLET PO SCH (16:12)
[2021-11-19] MEDS: ALPRAZOLAM 0.25 MG TABLET PO PRN (16:18)
[2021-11-19] MEDS: MELATONIN 5 MG TABLET PO PRN (21:51)
[2021-11-20] MEDS: IPRATROPIUM BROM 0.5MG/2.5ML NEB SCH ×4 (01:40→20:00)
[2021-11-20] MEDS: ALBUTEROL 2.5 MG/3 ML NEB SOL NEB SCH ×4 (01:40→20:00)
[2021-11-20] MEDS: predniSONE 20 MG TAB PO SCH ×2 (08:53→21:25)
[2021-11-20] MEDS: levoFLOXacin 750 MG TAB PO SCH (08:53)
[2021-11-20] MEDS: DULERA 200/5 (MOMETASONE/FORMOTEROL) INHALER IH SCH ×3 (08:53→21:33)
[2021-11-20] MEDS: ALPRAZOLAM 0.25 MG TABLET PO PRN ×2 (08:54→21:28)
[2021-11-20] MEDS: guaiFENesin 100 MG/5 ML UCUP PO PRN ×2 (09:41→21:26)
--- NOTE | 2021-11-20 12:41 | P.PN ---
Subjective Date of Service: 11/20/21 Primary Care Provider: Waverly siria Chief Complaint: COPD exacerbation Subjective: Improving (Patient is improving doing well requesting portable oxygen) Review of Systems Unremarkable Physical Examination - Vital Signs Temperature: 97.9 F Blood Pressure: 132/81 Pulse: 87 Respirations: 20 Pulse Ox (%): 90 - Physical Exam General: Alert, In no apparent distress Respiratory: Clear to auscultation bilaterally Cardiovascular: No edema, Regular rate/rhythm Assessment And Plan - Current Problems (Diagnosis) (1) COPD exacerbation Onset Date: 05/20/17 Current Visit: No Status: Acute Plan: Patient is doing much better has improved significantly significantly required requesting portable oxygen however PO2 on room air is normal oxygen is satisfactory I advised her that she will not qualify for oxygen she does have stationary oxygen concentrator labs chemistries all reviewed plan for discharge no antibiotics needed follow-up with me in 2 weeks will order an overnight pulse oximetry the patient is concerned about desaturation at night Physician Review: Patient Assessed, Agree with Above Assessment and Plan
--- NOTE | 2021-11-20 14:16 | EKG ---
Test Date: 2021-11-17 Test Time: 17:33:40 Statement Distribution Clerk: RICKIEL MEASUREMENT RESULTS: Intervals: Rate: 104 NC: 136 QRSD: 74 QT: 350 QTc: 460 [place]: P: 86 NC: 136 QRS: 83 T: 86 INTERPRETIVE STATEMENTS: Sinus tachycardia Right atrial enlargement Borderline ECG Compared to ECG 11/17/2021 17:32:14 Sinus rhythm no longer present Electronically Signed On 11-20-21 14:14:06 CDT by Bob Reyez
--- NOTE | 2021-11-20 14:16 | EKG ---
Test Date: 2021-11-17 Test Time: 17:32:14 [employer] Teacher: LML MEASUREMENT RESULTS: Intervals: Rate: 100 SD: 134 QRSD: 76 QT: 354 QTc: 456 [place]: P: 80 SD: 134 QRS: 82 T: 75 INTERPRETIVE STATEMENTS: Normal sinus rhythm Right atrial enlargement Borderline ECG Compared to ECG 07/13/2021 14:57:42 Sinus tachycardia no longer present Electronically Signed On 11-20-21 14:14:08 CDT by Bob Reyez
[2021-11-20] MEDS: RIVAROXABAN 20 MG TABLET PO SCH (16:13)
[2021-11-20] MEDS: ACETAMINOPHEN 325 MG TABLET PO PRN (21:26)
[2021-11-20] MEDS: MELATONIN 5 MG TABLET PO PRN (21:26)
[2021-11-21] MEDS: ALBUTEROL 2.5 MG/3 ML NEB SOL NEB SCH ×2 (01:35→08:00)
[2021-11-21] MEDS: IPRATROPIUM BROM 0.5MG/2.5ML NEB SCH ×2 (01:35→08:00)
[2021-11-21 06:08] LABS: Absolute Lymphocytes (CBC) 1.4 K/uL (0.7-4.9); Hematocrit 33.6 % (36.0-45.0); Lymphocytes % 20.4 % (15.3-44.8); MCV 94.5 fL (80-100); MPV 7.1 fL (7.6-11.3); RBC Red Blood Cell Count 3.56 M/uL (3.86-4.86)
[2021-11-21 06:40] LABS: Potassium 4.4 mmol/L (3.5-5.1)
[2021-11-21] MEDS: DULERA 200/5 (MOMETASONE/FORMOTEROL) INHALER IH SCH (08:53)
[2021-11-21] MEDS: levoFLOXacin 750 MG TAB PO SCH (08:53)
[2021-11-21] MEDS: predniSONE 20 MG TAB PO SCH (08:53)
[2021-11-21 09:00] VITALS: O2SAT 97
[2021-11-21] MEDS: ALPRAZOLAM 0.25 MG TABLET PO PRN (09:01)
[2021-11-21 09:03] VITALS: BP 118/59; TEMP 97.2
[2021-11-21 09:21] LABS: Blood Morphology Comment NOT SEEN (NOT SEEN); Platelet Estimate ADEQ
== END 2021-11-21 12:20 | disposition home or self-care (01) | DRG 190 ==
LOC: ER 16:56 → ERHOLD 19:52 → 4TH 20:44 → OBSVTOIN 11-19 12:38
PROVIDERS: ADMIT Internal Medicine; ATTEND Hospitalist
DX: J44.1 Chronic obstructive pulmonary disease with (acute) exacerbation (principal); J96.21 Acute and chronic respiratory failure with hypoxia; R31.29 Other microscopic hematuria; Z56.0 Unemployment, unspecified; Z91.14 Patient's other noncompliance with medication regimen; Z79.01 Long term (current) use of anticoagulants; Z99.81 Dependence on supplemental oxygen; Z86.718 Personal history of other venous thrombosis and embolism; Z90.711 Acquired absence of uterus with remaining cervical stump; Z87.891 Personal history of nicotine dependence; Z79.899 Other long term (current) drug therapy; Z20.822 Contact with and (suspected) exposure to COVID-19
CPT/HCPCS: 36415; 71045; 71275; 80048; 80053; 81003; 82805; 82947; 83605; 83735; 84484; 85025; 85610; 85730; 87040; 93005; 93970; 94010; 94640; 96365; 96375; 99285; G0378; J2930; J3535; J7512; Q9967; U0003

== ENCOUNTER 2022-05-05 19:40 | Emergency (ER) | payer OTHER ==
--- OUTSIDE RECORDS SUMMARY | 2022-05-05 19:47 | XMS REPORT | Continuity of Care Document ---
:1970 Author Organization [facility] t Address [address] [place] [address] [address] [place] [address] Care Team Providers Name Role Phone DEJON JOYCE Primary Care Physician Unavailable MECHE BABCOCK Attending Clinician Unavailable Meche Babcock MD Attending Clinician Bradley Elliott MD Attending Clinician Meche Lechuga MD Attending Clinician Only, Adc Test Attending Clinician Unavailable Pob, Adc Lab Main Attending Clinician Unavailable Doctor Unassigned, Clarinda Attending Clinician Unavailable Jn Barrios Attending Clinician Unavailable MECHE BABCOCK Admitting Clinician Unavailable Meche Babcock MD Admitting Clinician Jn Barrios Admitting Clinician Unavailable Payers Payer Name Policy Type Policy Number Effective Date Expiration Date S josefaabrahan [facility] DUAL [id number] 2022 00:00:00 COMP HMO D SNP [facility] [place] STAR [id number] 2022 00:00:00 PLUS Problems This patient has no known problems. Allergies, Adverse Reactions, Alerts Allergy Allergy Status Severity Reaction(s) Onset Inactive Treating Comm ents Source Name Type Date Date Clinician NO KNOWN Drug Active Univers ALLERGIE Class it[facility] of [facility] Medications Ordered Filled Start Stop Current Ordering Indication Dosage Frequency Signature Comments Components Source Medication Medication Date Date Medication? Clinician (SIG) Name Name TAKE 1 AND 2021-02 No 1/2 TABLETS 2-15 DAILY. 00:00: 00 TAKE 1 2021-02 No CAPSULE 2-15 EVERY 00:00: MORNING. 00 USE 1 UNIT 2021-02 No DOSE IN 2-15 NEBULIZER 00:00: EVERY 4 00 HOURS NEEDED. INHALE 2 2021-02 No PUFFS BY 2-15 MOUTH EVERY 00:00: 6 HOURS 00 NEEDED PREDNISONE 2021-02 No 20 MG TABS 2-15 00:00: 00 TAKE 2021-02 No CAPSULE BY 2-15 MOUTH THREE 00:00: TIMES DAILY 00 NEEDED FOR COUGH TAKE 2021-02 No TABLET BY 2-15 MOUTH EVERY 00:00: DAY AT 00 BEDTIME FOR 30 DAYS MONTELUKAST 2021-02 No SODIUM 10 2-15 MG TABS 00:00: 00 TAKE 1 (2021-02 No MG) TABLET 2-15 BY MOUTH 00:00: TWICE A DAY 00 FOR 21 DAYS, THEN 20MG TABLET ONCE DAILY WITH DINNER INHALE 1 2021-02 No PUFF BY 2-15 MOUTH EVERY 00:00: DAY 00 FLUOXETINE 2021-02 No HCL 20 MG 2-15 CAPS 00:00: 00 PREDNISONE 2021-02 No 10 MG TABS 2-15 00:00: 00 TAKE 2021-02 No TABLET BY 2-15 MOUTH EVERY 00:00: DAY FOR 30 00 DAYS TAKE 2021-02 No TABLET BY 2-15 MOUTH EVERY 00:00: 6 HOURS 00 NEEDED ANXIETY TRELEGY 2021-02 No ELLIPTA 2-15 100-62.5-25 00:00: MCG/ACT 00 AEPB Dose 2021-02 No Unknown 2-15 00:00: 00 ESZOPICLONE 2021-02 No 2 MG TABS 2-15 00:00: 00 TAKE 2021-02 No TABLET BY 2-15 MOUTH EVERY 00:00: DAY 00 Dose 2021-02 No Unknown 2-15 00:00: 00 SYMBICORT 2021-02 No 160-4.5 2-15 MCG/ACT 00:00: AERO 00 Dose 2021-02 No Unknown 2-15 00:00: 00 Dose 2021-02 No Unknown 2-15 00:00: 00 LEVOFLOXACI 2021-02 No N 750 MG 2-15 TABS 00:00: 00 TAKE 2021-02 No TABLET BY 2-15 MOUTH EVERY 00:00: DAY 00 Dose 2021-02 No Unknown 2-15 00:00: 00 INHALE 1 2021-02 No PUFF BY 2-15 MOUTH EVERY 00:00: DAY 00 TRELEGY 2021-02 No ELLIPTA 2-15 200-62.5-25 00:00: MCG/INH 00 AEPB TAKE 2021-02 No TABLET BY 2-15 MOUTH EVERY 00:00: DAY AT 00 BEDTIME TAKE 2 2021-02 No TABLETS BY 2-15 MOUTH EVERY 00:00: DAY 00 ESCITALOPRA 2021-02 No M OXALATE 2-15 10 MG TABS 00:00: 00 ALPRAZOLAM 2021-02 No 0.25 MG 2-15 TABS 00:00: 00 ALBUTEROL 2021-02 No SULFATE HFA 2-15 108 (90 00:00: Base) 00 MCG/ACT AERS TAKE 2021-02 No TABLET BY 2-15 MOUTH EVERY 00:00: DAY 00 FLUOXETINE 2021-02 No HYDROCHLORI 2-15 DE 10 MG 00:00: CAPS 00 TAKE 1 No TABLET BY 9-13 MOUTH EVERY 00:00: DAY FOR DAYS TAKE 2021-0 No 10 TABLET BY 8-12 MOUTH EVERY 00:00: DAY FOR DAYS TAKE 2021-0 No 10 TABLET BY 8-12 MOUTH EVERY 00:00: DAY FOR DAYS TAKE 2021-0 No 10 TABLET BY 8-12 MOUTH EVERY 00:00: DAY FOR TAKE 1 2021-0 No 10 TABLET BY 8-12 MOUTH EVERY 00:00: DAY FOR TAKE 1 2021-0 No 20 TABLET BY 7-26 MOUTH EVERY 00:00: DAY FOR DAYS TAKE 1 2021-0 No 20 TABLET BY 7-26 MOUTH EVERY 00:00: DAY FOR Lexapro 5 2021-0 No 1mg mg tablet 7-13 00:00: 00 hydroxyzine 0 No 1mg HCl 25 mg 7-13 tablet 00:00: 00 Effexor XR 2021-0 No 1mg 75 mg 7-13 capsule,ext 00:00: ended 00 release Effexor XR 2022-0 No 1mg 75 mg 7-13 capsule,ext 00:00: ended 00 release Effexor XR 2-0 No 1mg 150 mg 7-13 capsule,ext 00:00: ended 00 release TAKE 1 2021-0 No 25 TABLET BY 7-13 MOUTH EVERY 00:00: DAY FOR 30 00 DAYS INHALE 1 2021-0 No PUFF BY 7-13 MOUTH EVERY 00:00: DAY 00 Dose 2-0 No Unknown 7-13 00:00: 00 Dose 2-0 No Unknown 7-13 00:00: 00 Dose 2-0 No Unknown 7-13 00:00: 00 Dose 2-0 No Unknown 7-13 00:00: 00 Dose 2-0 No Unknown 7-13 00:00: 00 TAKE 1 2021-0 No 25 TABLET BY 7-13 MOUTH EVERY 00:00: DAY FOR 30 00 DAYS INHALE 1 2021-0 No PUFF BY 7-13 MOUTH EVERY 00:00: DAY 00 Singulair 2-0 No 1mg 10 mg 6-27 tablet 00:00: 00 Dose 2-0 No Unknown 6-27 00:00: 00 Symbicort 2-0 No 2mcg/ac 160 mcg-4.5 6-16 tuation mcg/actuati 00:00: on HFA 00 aerosol inhaler ProAir HFA 2021-0 No 1mcg/ac 90 6-16 tuation mcg/actuati 00:00: on aerosol 00 inhaler Dose 2-0 No Unknown 6-16 00:00: 00 venlafaxine 2-0 No 1mg ER 225 mg 5-13 tablet,exte 00:00: nded 00 release 24 hr hydroxyzine 2-0 No 1mg HCl 25 mg 5-13 tablet 00:00: 00 Dose 2-0 No Unknown 5-13 00:00: 00 Dose 2-0 No Unknown 5-13 00:00: 00 Dose 2-0 No Unknown 4-14 00:00: 00 Dose 2-0 No Unknown 4-14 00:00: 00 Dose 2-0 No Unknown 4-14 00:00: 00 Dose 2-0 No Unknown 4-14 00:00: 00 ProAir HFA 2-0 No 1mcg/ac 90 3-18 tuation mcg/actuati 00:00: on aerosol 00 inhaler prednisone 2021-0 No mg 20 mg 3-18 tablet 00:00: 00 ipratropium 2021-0 No 3mg 0.5 3-18 base)/3 mg-albutero 00:00: mL l 3 mg (2.5 00 mg base)/3 mL nebulizatio n soln Dose 2021-0 No Unknown 3-18 00:00: 00 prednisone 2021-0 No mg 20 mg 3-18 tablet 00:00: 00 USE 1 UNIT 2021-0 No DOSE IN 3-18 NEBULIZER 00:00: EVERY 4 00 HOURS NEEDED. Dose 2021-0 No Unknown 3-17 00:00: 00 Dose 2021-0 No Unknown 3-17 00:00: 00 Dose 2021-0 No Unknown 3-17 00:00: 00 Dose 2-0 No Unknown 3-17 00:00: 00 Dose 2-0 No Unknown 3-17 00:00: 00 Dose 2-0 No Unknown 3-17 00:00: 00 Dose 2-0 No Unknown 3-17 00:00: 00 Dose 2-0 No Unknown 3-17 00:00: 00 Dose 2-0 No Unknown 3-17 00:00: 00 Dose 2-0 No Unknown 3-17 00:00: 00 Dose 2-0 No Unknown 3-17 00:00: 00 Dose 2-0 No Unknown 3-17 00:00: 00 Dose 2-0 No Unknown 3-17 00:00: 00 Dose 2-0 No Unknown 3-17 00:00: 00 Dose 2-0 No Unknown 3-17 00:00: 00 Dose 2-0 No Unknown 3-17 00:00: 00 Dose 2-0 No Unknown 3-17 00:00: 00 Dose 2-0 No Unknown 3-17 00:00: 00 Dose 2-0 No Unknown 3-17 00:00: 00 Dose 2-0 No Unknown 3-17 00:00: 00 Dose 2-0 No Unknown 3-17 00:00: 00 Dose 2-0 No Unknown 3-17 00:00: 00 Dose 2-0 No Unknown 2-21 00:00: 00 Dose 2-0 No Unknown 2-21 00:00: 00 Dose 2022-0 No Unknown 2-21 00:00: 00 Dose 2022-0 No Unknown 2-21 00:00: 00 Dose 2-0 No Unknown 2-17 00:00: 00 Dose 2022-0 No Unknown 2-17 00:00: 00 Dose 2022-0 No Unknown 2-17 00:00: 00 venlafaxine 2022-0 No 1mg ER 150 mg 2-17 capsule,ext 00:00: ended 00 release 24 hr Dose 2-0 No Unknown 1-19 00:00: 00 Dose 2022-0 No Unknown 1-19 00:00: 00 Dose 2-0 No Unknown 1-19 00:00: 00 Dose 2-0 No Unknown 1-19 00:00: 00 hydroxyzine 2020-1 No 1mg HCl 25 mg 2-30 tablet 00:00: 00 venlafaxine 2020-1 No 1mg ER 150 mg 2-30 capsule,ext 00:00: ended 00 release 24 hr hydroxyzine 2020-1 No 1mg HCl 25 mg 2-30 tablet 00:00: 00 venlafaxine 2020-1 No 1mg ER 150 mg 2-30 capsule,ext 00:00: ended 00 release 24 hr prednisone 2020-1 No mg 20 mg 2-08 tablet 00:00: 00 Dose 2020-1 No Unknown 2-08 00:00: 00 Dose 2020-1 No Unknown 2-08 00:00: 00 Singulair 2020-1 No 1mg 10 mg 2-08 tablet 00:00: 00 prednisone 2020-1 No mg 20 mg 2-08 tablet 00:00: 00 Effexor XR 2020-1 No 1mg 75 mg 2-08 capsule,ext 00:00: ended 00 release Symbicort 2020-1 No 2mcg/ac 160 mcg-4.5 2-03 tuation mcg/actuati 00:00: on HFA 00 aerosol inhaler Dose 2020-1 No Unknown 1-09 00:00: 00 ProAir HFA 2020-1 No 1mcg/ac 90 1-09 tuation mcg/actuati 00:00: on aerosol 00 inhaler prednisone 2020-1 No 2mg 20 mg 0-28 tablet 00:00: 00 Dose 2020-1 No Unknown 0-28 00:00: 00 prednisone 1-1 No 2mg 20 mg 0-28 tablet 00:00: 00 levofloxaci 1-1 No 1mg n 500 mg 0-28 tablet 00:00: 00 prednisone 1-1 No 2mg 20 mg 0-04 tablet 00:00: 00 Dose 1-1 No Unknown 0-04 00:00: 00 prednisone 1-1 No 2mg 20 mg 0-04 tablet 00:00: 00 azithromyci 1-1 No mg n 250 mg 0-04 tablet 00:00: 00 Tessalon 1-1 No 1mg Perles 100 0-04 mg capsule 00:00: 00 Dose 1-0 No Unknown 9-23 00:00: 00 ProAir HFA 2020-0 No 1mcg/ac 90 9-23 tuation mcg/actuati 00:00: on aerosol 00 inhaler prednisone 1-0 No 2mg 20 mg 8-02 tablet 00:00: 00 Dose 1-0 No Unknown 8-02 00:00: 00 prednisone 1-0 No 2mg 20 mg 8-02 tablet 00:00: 00 levofloxaci 1-0 No 1mg n 500 mg 8-02 tablet 00:00: 00 Zithromax 1-0 No mg 250 mg 7-29 tablet 00:00: 00 ProAir HFA 2020-0 No 1mcg/ac 90 7-01 tuation mcg/actuati 00:00: on aerosol 00 inhaler ProAir HFA 2020-0 No 1mcg/ac 90 7-01 tuation mcg/actuati 00:00: on aerosol 00 inhaler Symbicort 2020-0 No 2mcg/ac 160 mcg-4.5 6-03 tuation mcg/actuati 00:00: on HFA 00 aerosol inhaler Symbicort 1-0 No 2mcg/ac 160 mcg-4.5 5-03 tuation mcg/actuati 00:00: on HFA 00 aerosol inhaler ProAir HFA 2020-0 No 1mcg/ac 90 5-03 tuation mcg/actuati 00:00: on aerosol 00 inhaler Augmentin 1-0 No 1mg 875 mg-125 5-03 mg tablet 00:00: 00 Dose 2020-0 No Unknown 5-03 00:00: 00 Effexor XR 1-0 No 1mg 75 mg 5-03 capsule,ext 00:00: ended 00 release Symbicort 1-0 No 2mcg/ac 160 mcg-4.5 5-03 tuation mcg/actuati [...] inhaler ProAir HFA 2020-0 No 1mcg/ac 90 4-22 tuation mcg/actuati 00:00: on aerosol 00 inhaler prednisone 1-0 No 2mg 20 mg 3-26 tablet 00:00: 00 levofloxaci 2021-0 No 1mg n 500 mg 3-26 tablet 00:00: 00 prednisone 2021-0 No 2mg 20 mg 3-26 tablet 00:00: 00 levofloxaci 2021-0 No 1mg n 500 mg 3-26 tablet 00:00: 00 ProAir HFA 2020-0 No 1mcg/ac 90 2-19 tuation mcg/actuati 00:00: on aerosol 00 inhaler ProAir HFA 2020-0 No 1mcg/ac 90 2-19 tuation mcg/actuati 00:00: on aerosol 00 inhaler ipratropium 1-0 No 3mg 0.5 2-19 base)/3 mg-albutero 00:00: mL l 3 mg (2.5 00 mg base)/3 mL nebulizatio n soln ProAir HFA 2020-0 No 1mcg/ac 90 2-19 tuation mcg/actuati 00:00: on aerosol 00 inhaler ProAir HFA 2020-0 No 1mcg/ac 90 2-19 tuation mcg/actuati 00:00: on aerosol 00 inhaler ipratropium 2020-0 No 3mg 0.5 2-19 base)/3 mg-albutero 00:00: mL l 3 mg (2.5 00 mg base)/3 mL nebulizatio n soln ProAir HFA 2020-0 No 1mcg/ac 90 2-03 tuation mcg/actuati 00:00: on aerosol inhaler ProAir HFA 2020-0 No 1mcg/ac 90 2-03 tuation mcg/actuati 00:00: on aerosol 00 inhaler ProAir HFA 2019-1 No 1mcg/ac 90 2-29 tuation mcg/actuati 00:00: on aerosol 00 inhaler montelukast 2019-1 No 1mg 10 mg 2-29 tablet 00:00: 00 ProAir HFA 2019-1 No 1mcg/ac 90 2-29 tuation mcg/actuati 00:00: on aerosol inhaler montelukast 2019-1 No 1mg 10 mg 2-29 tablet 00:00: 00 Effexor XR 2020-0 No 1mg 75 mg 9-30 capsule,ext 00:00: ended 00 release Effexor XR 2020-0 No 1mg 75 mg 9-30 capsule,ext 00:00: ended 00 release ProAir HFA 2020-0 No 1mcg/ac 90 8-17 tuation mcg/actuati 00:00: on aerosol 00 inhaler ProAir HFA 2019-0 No 1mcg/ac 90 8-17 tuation mcg/actuati 00:00: on aerosol 00 inhaler Effexor XR 2020-0 No 1mg 75 mg 8-11 capsule,ext 00:00: ended 00 release Dose 2020-0 No Unknown 8-11 00:00: 00 Effexor XR 2020-0 No 1mg 75 mg 8-11 capsule,ext 00:00: ended 00 release Effexor XR 2020-0 No 1mg 75 mg 8-11 capsule,ext 00:00: ended 00 release prednisone 2020-0 No 2mg 20 mg 7-29 tablet 00:00: 00 Bromfed DM 2020-0 No 75mg/5 2 mg-30 7-29 mL mg-10 mg/5 00:00: mL oral 00 syrup prednisone 2020-0 No 2mg 20 mg 7-29 tablet 00:00: 00 Bromfed DM 2020-0 No 75mg/5 2 mg-30 7-29 mL mg-10 mg/5 00:00: mL oral 00 syrup prednisone 2020-0 No 1mg 20 mg 7-22 tablet 00:00: 00 furosemide 2020-0 No 1mg 20 mg 7-22 tablet 00:00: 00 diclofenac 2020-0 No 1mg sodium 75 7-22 mg 00:00: tablet,yeni 00 yed release prednisone 2020-0 No 1mg 20 mg 7-22 [...] inhalation Trelegy 2020-0 No 1mcg Ellipta 100 6-10 [...] (0.083 %) 00 solution for nebulizatio n bupropion 2020-0 No 1mg HCl XL 150 [...] 00:00: mcg-25 mcg 00 powder for inhalation ProAir HFA 2020-0 No 1mcg/ac 90 2-19 [...] 24 hr 00:00: tablet, 00 extended release bupropion 2020-0 No 1mg HCl XL 150 2-12 mg 24 hr 00:00: tablet, 00 extended release buspirone 2020-0 No 1mg 10 mg 2-12 tablet 00:00: 00 montelukast 2020-0 No 1mg 10 mg 2-12 tablet 00:00: 00 benzonatate 2020-0 No 12mg 100 mg 2-12 capsule 00:00: 00 buspirone 2020-0 No 1mg 10 mg 2-12 tablet 00:00: 00 montelukast 2020-0 No 1mg 10 mg 2-12 tablet 00:00: 00 benzonatate 2020-0 No 12mg 100 mg 2-12 capsule 00:00: 00 Spiriva 2020-0 No 1mcg with 2-07 HandiHaler 00:00: 18 mcg and 00 inhalation capsules Spiriva 2020-0 No 1mcg with 2-07 HandiHaler 00:00: 18 mcg and 00 inhalation capsules Spiriva 2020-0 No 1mcg/ac Respimat 2-06 tuation 2.5 00:00: mcg/actuati 00 on solution for inhalation Spiriva 2020-0 No 1mcg/ac Respimat 2-06 tuation 2.5 00:00: mcg/actuati 00 on solution for inhalation ProAir HFA 2020-0 No 1mcg/ac 90 1-24 tuation mcg/actuati 00:00: on aerosol 00 inhaler albuterol 2020-0 No 3/3 mL sulfate 2.5 1-24 (0.083 mg/3 mL 00:00: %) (0.083 %) 00 solution for nebulizatio n ProAir HFA 2020-0 No 1mcg/ac 90 1-24 tuation mcg/actuati 00:00: on aerosol 00 inhaler albuterol 2020-0 No 3/3 mL sulfate 2.5 1-24 (0.083 [...] 20 mg 2-31 tablet 00:00: 00 montelukast 2018-02 No 1mg 10 mg 2-31 tablet 00:00: 00 indomethaci 2018-02 No 1mg n 50 mg 2-31 capsule 00:00: 00 gabapentin 2018- No 1mg 300 mg 2-31 capsule 00:00: 00 Symbicort 2018-02 No 2mcg/ac 160 mcg-4.5 2-31 [...] mg/5 00:00: mL oral 00 syrup albuterol 2018- No 1/3 mL sulfate 2.5 1-20 (0.083 [...] mcg/actuati 00:00: on aerosol 00 inhaler Trelegy 2018-02 No 1mcg Ellipta 100 1-20 mcg-62.5 00:00: mcg-25 mcg 00 powder for inhalation citalopram 2018-02 No 1mg 40 mg 1-20 tablet 00:00: 00 Seroquel 25 2018-02 No 1mg mg tablet 1-20 00:00: 00 prednisone 2018-02 No mg 20 mg 1-20 tablet 00:00: 00 prednisone 2018-02 No mg 20 mg 1-20 tablet 00:00: 00 benzonatate 2018-02 No 1mg 200 mg 1-20 capsule 00:00: 00 Bromfed DM 2018-02 No 5mg/5 2 mg-30 1-20 mL mg-10 [...] mcg/actuati 00:00: on aerosol 00 inhaler Trelegy 2018-02 No 1mcg Ellipta 100 1-20 mcg-62.5 00:00: mcg-25 mcg 00 powder for inhalation citalopram 2018-02 No 1mg 40 mg 1-20 tablet 00:00: 00 Seroquel 25 2018-02 No 1mg mg tablet 1-20 00:00: 00 prednisone 2018-02 No mg 20 mg 1-20 tablet 00:00: 00 Vital Signs Vital Name Observation Time Observation Value Comments Source BP Systolic 2022-01-17 14:48:00 BP Diastolic 2022-01-17 14:48:00 Weight Measured 2022-01-17 14:48:00 190.00 pounds Height Measured 2022-01-17 14:48:00 64.80 inches Body Temperature 2022-01-17 14:48:00 Heart Rate 2022-01-17 14:48:00 Respiratory Rate 2022-01-17 14:48:00 BP Systolic 2021-05-05 15:41:00 118 mm[Hg] BP [...] Goal Plan of Care Note [code = 15173-8] Goal Plan of Care Note [code = 85435-4] Goal Plan of Care Note [code = 51655-2] Goal Plan of Care Note [code = 98552-3] Goal Plan of Care Note [code = 23476-0] Goal Plan of Care Note [code = 04548-0] Goal Plan of Care Note [code = 10726-4] Goal Plan of Care Note [code = 99374-4] Goal Plan of Care Note [code = 25357-5] Goal Plan of Care Note [code = 61748-8] Goal Plan of Care Note [code = 83469-9] Goal Plan of Care Note [code = 58169-2] Goal Plan of Care Note [code = 09143-9] Goal Plan of Care Note [code = 15333-5] Goal Plan of Care Note [code = 41214-4] Goal Plan of Care Note [code = 43921-2] Goal Plan of Care Note [code = 97011-4] Goal Plan of Care Note [code = 75119-1] Goal Plan of Care Note [code = 79944-1] Goal Plan of Care Note [code = 94336-0] Goal Plan of Care Note [code = 30191-9] Goal Plan of Care Note [code = 04448-1] Goal Plan of Care Note [code = 35764-2] Goal Plan of Care Note [code = 82840-0] Goal Plan of Care Note [code = 94104-2] Goal Plan of Care Note [code = 18905-4] Goal Plan of Care Note [code = 72474-0] Goal Plan of Care Note [code = 72786-2] Goal Plan of Care Note [code = 35736-6] Goal Plan of Care Note [code = 79639-3] Goal Plan of Care Note [code = 01116-3] Goal Plan of Care Note [code = 87992-6] Goal Plan of Care Note [code = 53987-3] Goal Plan of Care Note [code = 23321-3] Goal Plan of Care Note [code = 75497-2] Goal Plan of Care Note [code = 77820-3] Goal Plan of Care Note [code = 87938-0] Goal Plan of Care Note [code = 52951-5] Goal Plan of Care Note [code = 02862-3] Goal Plan of Care Note [code = 26969-5] Goal Plan of Care Note [code = 76573-7] Goal Plan of Care Note [code = 96918-1] Goal Plan of Care Note [code = 86123-9] Goal Plan of Care Note [code = 42248-1] Goal Plan of Care Note [code = 74241-9] Goal Plan of Care Note [code = 62573-0] Goal Plan of Care Note [code = 99486-7] Goal Plan of Care Note [code = 77961-7] Goal Plan of Care Note [code = 33084-0] Goal Plan of Care Note [code = 85088-1] Encounters Start End Encounter Admission Attending Care Care Encounter Source Date/Time Date/Time Type Type Clinicians Facility Department ID 2022-05-02 Outpatient Margi BABCOCK [facility] OPH [id number] Univers 15:40:22 MECHE [facility] 2020-12-18 Outpatient Margi BABCOCK [facility] OPH [id number] Univers 11:16:09 MECHE [facility] 2022-04-18 2022-04-18 Outpatient [facility] SFA [id number] Chris 13:53:40 13:53:40 0301 [facility] 2022-04-17 2022-04-17 Outpatient SFA SFA [id number] Chris 09:59:04 09:59:04 0228 [facility] 2022-03-10 2022-03-10 Outpatient SFA SFA [id number] Chris 12:17:29 12:17:29 0121 [facility] 2022-02-01 2022-02-01 Outpatient [id number] 00:00:00 00:00:00 Visit [id number] 2021-10-04 2021-10-04 Outpatient [id number] 00:00:00 00:00:00 Visit [id number] 2020-05-26 2020-05-26 [facility] [id number] 10:30:00 12:59:00 Encounter Meche Mary [id number] Marcos Rivera 4.2.7.2.686 Surgical [id number] [place] 07 2020-05-26 2020-05-26 Surgery [facility] [id number] 12:12:00 12:48:00 [place] [id number] [place] 4.2.7.2.686 Surgical [id number] [place] 020 2020-05-26 2020-05-26 Anesthesia Bradley Elliott [facility] 1.2.840. [id number] 12:09:00 12:37:00 Event Meche Lechuga 350.1.13. 10 [place] 4.2.7.2.686 Surgical [id number] [place] 020 2020-05-25 2020-05-25 Laboratory Only, [facility] [id number] 10:21:30 10:36:30 Only Test [place] [id number] [place] 4.2.7.2.686 [place] [id number] 2020-05-25 2020-05-25 Outpatient Margi BABCOCK [facility] [id number] Univers 10:15:00 10:15:00 MECHE yang [facility] 2020-05-19 2020-05-19 Concrete Pourer Torie [facility] [id number] 12:11:02 12:26:02 Visit Lab Main Mary [id number] [place] 4.2.7.2.686 Professio [id number] [address] 2020-05-19 2020-05-19 Outpatient Margi BABCOCK [facility] [id number] Univers 12:15:00 12:15:00 MECHE yang [facility] 2020-05-19 2020-05-19 Orders Doctor CLAYTON [id number] 00:00:00 00:00:00 Only Unassigned, CHRIS 350.1.13.10 Clarinda [facility] 4.2.7.2.686 [id number] 2019-12-08 2019-12-08 Outpatient KEMAL Soliz [facility] [id number] [facility] 10:14:00 10:14:[address] Results Test Description Test Time Test Comments Results Result Comments Source OCCULT BLD,FECAL,IMMUNOASSAY [facility] 2022-04-25 11:30:47 Test Item Value Reference Range Interpretation Comme nts OCCULT BLD, FECAL (test NEGATIVE NEGATIVE [facility] has important pathology staff code = 82826) changes effect kyle 04/18/2022. New pathology staff will provide uninterrupted, excellent patient care and clinical co nsultation. See URL: [email or web address]. UNLESS OTHERWISE INDIC ATED, ALL [facility], [facility]. [address] [place] [id number] ZAIN FARIAS DIRECTOR: Kana COHEN RAUL NUMBER [id number] CAP ACCREDITATION N O. [id number] RSV BY [id number] 00:00:00 Test Item Value Reference Range Interpretation Comments RSV BY DFA (test code = 97892) Negative SOURCE (test code = 22424) Not Provided RSV BY [id number] 00:00:00 Test Item Value Reference Range Interpretation Comments RSV BY DFA (test code = 28549) Negative SOURCE (test code = 77796) Not Provided RSV BY [id number] 00:00:00 Test Item Value Reference Range Interpretation Comments RSV BY DFA (test code = 96136) Negative SOURCE (test code = 83721) Not Provided RSV BY [id number] 00:00:00 Test Item Value Reference Range Interpretation Comments RSV BY DFA (test code = 58203) Negative SOURCE (test code = 51226) Not Provided SARS-CoV-2 (COVID-19) by RT-PCR (HIGH RISK)2020-11-23 00:00:00 Test Item Value Reference Range Interpretation Comments SARS-CoV-2 INTERPRETATION (test NEGATIVE code = 45873) SOURCE (test code = 19760) NOT SPECIFIED SARS-CoV-2 (COVID-19) by RT-PCR (HIGH RISK)2020-11-23 00:00:00 Test Item Value Reference Range Interpretation Comments SARS-CoV-2 INTERPRETATION (test NEGATIVE code = 93103) SOURCE (test code = 92128) NOT SPECIFIED SARS-CoV-2 (COVID-19) by RT-PCR (HIGH RISK)2020-11-23 00:00:00 Test Item Value Reference Range Interpretation Comments SARS-CoV-2 INTERPRETATION (test NEGATIVE code = 36837) SOURCE (test code = 14997) NOT SPECIFIED SARS-CoV-2 (COVID-19) by RT-PCR (HIGH RISK)2020-11-23 00:00:00 Test Item Value Reference Range Interpretation Comments SARS-CoV-2 INTERPRETATION (test NEGATIVE code = 95778) SOURCE (test code = 88123) NOT SPECIFIED [id number] 00:00:00 Test Item Value Reference Range Interpretation Comments TSH, THIRD GENERATION (test code 1.080 UIU/ML = 2821) [id number] 00:00:00 Test Item Value Reference Range Interpretation Comments TSH, THIRD GENERATION (test code 1.080 UIU/ML = 2821) [id number] 00:00:00 Test Item Value Reference Range Interpretation Comments TSH, THIRD GENERATION (test code 1.080 UIU/ML = 2821) CBC W/AUTO [id number] 00:00:00 Test Item Value Reference Range Interpretation [...] NUCLEATED RBCS (test code = 0.00 K/UL 32284) CBC W/AUTO [id number] 00:00:00 Test Item Value Reference Range Interpretation [...] NUCLEATED RBCS (test code = 0.00 K/UL 02314) CBC W/AUTO [id number] 00:00:00 Test Item Value Reference Range Interpretation [...] NUCLEATED RBCS (test code = 0.00 K/UL 02049) VITAMIN D, 25 [id number] 00:00:00 Test Item Value Reference Range Interpretation Comments VITAMIN D, 25 OH (test code = 4958) 15 NG/ML VITAMIN D, 25 [id number] 00:00:00 Test Item Value Reference Range Interpretation Comments VITAMIN D, 25 OH (test code = 4958) 15 NG/ML [id number] 00:00:00 Test Item Value Reference Range Interpretation Comments TSH, THIRD GENERATION (test code 1.080 UIU/ML = 2821) [id number] 00:00:00 Test Item Value Reference Range Interpretation Comments TSH, THIRD GENERATION (test code 1.080 UIU/ML = 2821) [id number] 00:00:00 Test Item Value Reference Range Interpretation Comments TSH, THIRD GENERATION (test code 1.080 UIU/ML = 2821) CBC W/AUTO [id number] 00:00:00 Test Item Value Reference Range Interpretation [...] NUCLEATED RBCS (test code = 0.00 K/UL 52175) CBC W/AUTO [id number] 00:00:00 Test Item Value Reference Range Interpretation [...] NUCLEATED RBCS (test code = 0.00 K/UL 99356) CBC W/AUTO [id number] 00:00:00 Test Item Value Reference Range Interpretation [...] NUCLEATED RBCS (test code = 0.00 K/UL 68947) VITAMIN D, 25 [id number] 00:00:00 Test Item Value Reference Range Interpretation Comments VITAMIN D, 25 OH (test code = 4958) 15 NG/ML VITAMIN D, 25 [id number] 00:00:00 Test Item Value Reference Range Interpretation Comments VITAMIN D, 25 OH (test code = 4958) 15 NG/ML SARS-COV-2 (COVID19), NAAT [ADDED]2020-03-04 00:00:00 Test Item Value Reference Range Interpretation Comments SARS-CoV-2 INTERPRETATION (test POSITIVE code = 07373) SOURCE (test code = 04378) NOT SPECIFIED SARS-COV-2 (COVID19), NAAT [ADDED]2020-03-04 00:00:00 Test Item Value Reference Range Interpretation Comments SARS-CoV-2 INTERPRETATION (test POSITIVE code = 59503) SOURCE (test code = 16447) NOT SPECIFIED SARS-COV-2 (COVID19), NAAT [ADDED]2020-03-04 00:00:00 Test Item Value Reference Range Interpretation Comments SARS-CoV-2 INTERPRETATION (test POSITIVE code = 01007) SOURCE (test code = 29587) NOT SPECIFIED SARS-COV-2 (COVID19), NAAT [ADDED]2020-03-04 00:00:00 Test Item Value Reference Range Interpretation Comments SARS-CoV-2 INTERPRETATION (test POSITIVE code = 58103) SOURCE (test code = 18309) NOT SPECIFIED - XR CHEST 2 [id number] 11:11:00 [facility] 1970 Sex: F FAX:Jn Barton MD [phone] [place]: [address]: REG Name: AMADA RIVERA [facility] : 1970 Age/S: 49/F [address] [place] [address] Unit #: [id number] Loc: [place] [address] Phys: Jn Barrios MD Acct: [id number] Dis Date: Status: REG CLI PHONE #: [phone] Exam Date: 12/08/2019 1111 FAX #: [phone]: R06.02, SHORTNESS OF BREATH. EXAMS: CPT CODE: [id number] XR CHEST 2 V 24986 CLINICAL HISTORY:R06.02, SHORTNESS OF BREATH. COMPARISON: NONE [...] Print D/T: S: 12/08/2019 (1418) PAGE 1 [id number] (COVID-19) by RT-PCR (HIGH RISK)2019-09-18 00:00:00 Test Item Value Reference Range Interpretation Comments SARS-CoV-2 INTERPRETATION (test NEGATIVE code = 39781) SOURCE (test code = 10626) NOT SPECIFIED SARS-CoV-2 (COVID-19) by RT-PCR (HIGH RISK)2019-09-18 00:00:00 Test Item Value Reference Range Interpretation Comments SARS-CoV-2 INTERPRETATION (test NEGATIVE code = 99038) SOURCE (test code = 63489) NOT SPECIFIED SARS-CoV-2 (COVID-19) by RT-PCR (HIGH RISK)2019-09-18 00:00:00 Test Item Value Reference Range Interpretation Comments SARS-CoV-2 INTERPRETATION (test NEGATIVE code = 21137) SOURCE (test code = 73790) NOT SPECIFIED SARS-CoV-2 (COVID-19) by RT-PCR (HIGH RISK)2019-09-18 00:00:00 Test Item Value Reference Range Interpretation Comments SARS-CoV-2 INTERPRETATION (test NEGATIVE code = 32383) SOURCE (test code = 15252) NOT SPECIFIED CBC W/AUTO [id number] 00:00:00 Test Item Value Reference Range Interpretation [...] code = 1015) 223 K/UL CBC W/AUTO [id number] 00:00:00 Test Item Value Reference Range Interpretation [...] code = 1015) 223 K/UL CBC W/AUTO [id number] 00:00:00 Test Item Value Reference Range Interpretation [...] code = 1015) 223 K/UL COMPREHENSIVE METABOLIC [id number] 00:00:00 Test Item Value Reference Range Interpretation Comments GLUCOSE (test code = 2217) 83 MG/DL BUN (test code = 2208) 17 MG/DL CREATININE (test code = 2214) 0.96 MG/DL eGFR AMER. (test code 80 ML/MIN/1.73 = 83989) eGFR NON- AMER. (test 69 ML/MIN/1.73 code = 30312) CALC BUN/CREAT (test code = 18 RATIO 2235) SODIUM (test code = 2231) 145 MEQ/L POTASSIUM (test code = 2228) 4.1 MEQ/L CHLORIDE (test code = 2215) 106 MEQ/L CARBON DIOXIDE (test code = 28 MEQ/L 2206) CALCIUM (test code = 2209) 9.5 MG/DL [...] code = 2219) 15 U/L COMPREHENSIVE METABOLIC [id number] 00:00:00 Test Item Value Reference Range Interpretation Comments GLUCOSE (test code = 2217) 83 MG/DL BUN (test code = 2208) 17 MG/DL CREATININE (test code = 2214) 0.96 MG/DL eGFR AMER. (test code 80 ML/MIN/1.73 = 70825) eGFR NON- AMER. (test 69 ML/MIN/1.73 code = 69300) CALC BUN/CREAT (test code = 18 RATIO [...] A/G RATIO (test code = 1.6 RATIO 2233) BILIRUBIN, TOTAL (test code = 0.3 MG/DL 2206) ALKALINE PHOSPHATASE (test 93 U/L code = 2204) AST (test code = 2218) 35 U/L ALT (test code = 2219) 15 U/L CBC W/AUTO [id number] 00:00:00 Test Item Value Reference Range Interpretation [...] code = 1015) 223 K/UL CBC W/AUTO [id number] 00:00:00 Test Item Value Reference Range Interpretation [...] code = 1015) 223 K/UL CBC W/AUTO [id number] 00:00:00 Test Item Value Reference Range Interpretation [...] code = 1015) 223 K/UL COMPREHENSIVE METABOLIC [id number] 00:00:00 Test Item Value Reference Range Interpretation Comments GLUCOSE (test code = 2217) 83 MG/DL BUN (test code = 2208) 17 MG/DL CREATININE (test code = 2214) 0.96 MG/DL eGFR AMER. (test code 80 ML/MIN/1.73 = 54496) eGFR NON- AMER. (test 69 ML/MIN/1.73 code = 61682) CALC BUN/CREAT (test code = 18 RATIO [...] code = 2219) 15 U/L COMPREHENSIVE METABOLIC [id number] 00:00:00 Test Item Value Reference Range Interpretation Comments GLUCOSE (test code = 2217) 83 MG/DL BUN (test code = 2208) 17 MG/DL CREATININE (test code = 2214) 0.96 MG/DL eGFR AMER. (test code 80 ML/MIN/1.73 = 99423) eGFR NON- AMER. (test 69 ML/MIN/1.73 code = 38927) CALC BUN/CREAT (test code = 18 RATIO [...]
[2022-05-05 20:21] LABS: Protime INR 1.16
[2022-05-05 20:23] LABS: Hematocrit 40.5 % (36.0-45.0); Lymphocytes % 31.5 % (15.3-44.8); MCV 94.4 fL (80-100); MPV 7.3 fL (7.6-11.3); RBC Red Blood Cell Count 4.29 M/uL (3.86-4.86)
[2022-05-05] MEDS ORDERED: FENTANYL CITR 100 MCG/2 ML ONE (20:38)
[2022-05-05] MEDS ORDERED: METHYLPREDNISOLONE 125 MG INJ ONE (20:39)
[2022-05-05] MEDS ORDERED: LEVALBUTEROL 1.25 MG/3 ML NEB ONE (20:39)
[2022-05-05 20:45] LABS: ALT/SGPT 14 U/L (13-56); AST/SGOT 13 U/L (15-37); Alkaline Phosphatase 78 U/L (45-117); BUN Blood Urea Nitrogen 18 mg/dL (7-18); Bicarbonate 29 mEq/L (21-32); Bilirubin Total 0.3 mg/dL (0.2-1.0); Glomerular Filtration Rate 62 ml/min (=/>90); Glucose Level 123 mg/dL (74-106); Lipase 22 U/L (13-75); Magnesium 2.2 mg/dL (1.6-2.4); NT PRO-BNP 42 pg/mL (<125); Potassium 3.2 mEq/L (3.5-5.1); Protein, Total 7.1 g/dL (6.4-8.2); Sodium Level 138 mEq/L (136-145); Troponin High Sensitivity 4.4 pg/mL (<58.9)
[2022-05-05 20:47] LABS: Bilirubin Direct < 0.1 mg/dL (0-0.2)
--- NOTE | 2022-05-05 20:57 | RAD REPORT ---
EXAM DESCRIPTION: [place] Single View05/05/2022 8:43 pm CLINICAL HISTORY: sob COMPARISON: 2021 FINDINGS: The lungs are mildly to moderately hyperaerated. The lungs appear clear of acute infiltrate. The heart is normal size IMPRESSION: No acute abnormalities displayed
--- NOTE | 2022-05-05 21:17 | RAD REPORT ---
EXAM DESCRIPTION: USExtrem Venous W Compress Bil05/05/2022 8:42 pm CLINICAL HISTORY: Leg pain COMPARISON: October 2021 FINDINGS: The common femoral, superficial femoral, greater saphenous, popliteal and posterior tibial veins bilaterally are compressible and demonstrate augmentation. Doppler demonstrates good flow. Grayscale, color and spectral analysis performed on all vessels IMPRESSION: No evidence of deep venous thrombosis involving either lower extremity.
[2022-05-05 21:30] LABS: SARS-COV-2 RT PCR NEGATIVE (NEGATIVE)
--- NOTE | 2022-05-05 22:03 | RAD REPORT ---
EXAM DESCRIPTION: CT - Chest For Pe Angio - 05/05/2022 9:44 pm CLINICAL HISTORY: Chest pain COMPARISON: 2021 TECHNIQUE: Dynamically enhanced axial 3 mm thick images of the chest were obtained during administra tion of 100 mL Isovue 370 IV contrast. Coronal and oblique reconstruction images were generated and r eviewed. Exam utilizes a protocol for optimal evaluation of pulmonary arterial tree. Maximum intensity projections 3D imaging was utilized All CT scans are performed using dose optimization technique as appropriate and may include automated exposure control or mA/KV adjustment according to patient size. FINDINGS: A pulmonary embolus is not seen. A thoracic aortic aneurysm is not noted. A pleural effusion is not seen. A pericardial effusion is not seen. Mild reticulonodular opacities right middle lobe. Mild opacity lingula probably atelectasis Beus-vp-pgnjiabi centrilobular emphysema IMPRESSION: Negative for a pulmonary embolism. Mild reticulonodular opacities right middle lobe may indicate atypical pneumonia or pneumonitis
[2022-05-05] MEDS ORDERED: AZITHROMYCIN 250 MG TAB ONE (22:28)
[2022-05-05] MEDS ORDERED: NA CHLORIDE 0.9% 500 ML ONE (22:28)
[2022-05-05] MEDS ORDERED: CEFTRIAXONE 1000 MG/VIAL ONE (22:28)
--- NOTE | 2022-05-05 23:45 | ER ---
Nurse's Notes [facility] Name: Roxanne Duran Age: 51 yrs Sex: Female : 1970 Arrival Date: 05/05/2022 Time: 19:46 Bed 3 Private MD: Diagnosis: COPD/ Chronic obstructive pulmonary disease with acute lower respiratory infection;Pneumonia in diseases classified elsewhere Presentation: 05/05 19:52 Chief complaint: EMS states: Pt called EMS for SOB and chest pain. Was satting 85% on jb4 1.5, bumped her up to 2L NC, gave A:A 1:1 treatment. established a 20g IV to RAC. Coronavirus screen: At this time, the client does not indicate any symptoms associated with coronavirus-19. Ebola Screen: No symptoms or risks identified at this time. 19:52 Method Of Arrival: EMS: [facility] jb4 19:52 Initial Sepsis Screen: Does the patient meet any 2 criteria? HR > 90 bpm. Yes Does the jb4 patient have a suspected source of infection? No. Patient's initial sepsis screen is negative. Risk Assessment: Do you want to hurt yourself or someone else? Patient reports no desire to harm self or others. Onset of symptoms was May 05, 2022. 19:52 Acuity: SHYLA 3 jb4 Historical: - Allergies: 19:59 No Known Allergies; ll1 - Home Meds: 19:59 Albuterol Inhl [Active]; Atrovent Inhl [Active]; ll1 - PMHx: 19:59 Anxiety; COPD; DVT Left leg; ll1 - PSHx: 19:59 partial hysterectomy; ll1 - Immunization history:: Adult Immunizations up to date. - Social history:: Smoking status: Patient denies any tobacco usage or history of. Screenin:19 [facility] ED Fall Risk Assessment (Adult) History of falling in the last 3 months, jb4 including since admission No falls in past 3 months (0 pts) Confusion or Disorientation No (0 pts) Score/Fall Risk Level 0 - 2 = Low Risk Oriented to surroundings, Maintained a safe environment. Abuse screen: Denies threats or abuse. Nutritional screening: No deficits noted. Tuberculosis screening: No symptoms or risk factors identified. Assessment: 20:19 General: Appears in no apparent distress. comfortable, Behavior is calm, cooperative, jb4 appropriate for age. Pain: Complains of pain in chest Pain does not radiate. Pain currently is 8 out of 10 on a pain scale. Neuro: Level of Consciousness is awake, alert, obeys commands, Oriented to person, place, time, situation. Cardiovascular: Patient's skin is warm and dry. Respiratory: Airway is patent Respiratory effort is even, unlabored, Respiratory pattern is regular, symmetrical, Breath sounds are clear bilaterally. GI: No signs and/or symptoms were reported involving the gastrointestinal system. : No signs and/or symptoms were reported regarding the genitourinary system. EENT: No signs and/or symptoms were reported regarding the EENT system. Derm: Skin is intact, Skin is pink, warm \T\ dry. Musculoskeletal: Circulation, motion, and sensation intact. Range of motion: intact in all extremities, Swelling present in right leg and left leg. 21:00 Reassessment: Patient appears in no apparent distress at this time. Patient and/or jb4 family updated on plan of care and expected duration. Pain level reassessed. Patient is alert, oriented x 3, equal unlabored respirations, skin warm/dry/pink. 22:42 Reassessment: Patient appears in no apparent distress at this time. Patient and/or jb4 family updated on plan of care and expected duration. Pain level reassessed. Patient is alert, oriented x 3, equal unlabored respirations, skin warm/dry/pink. Vital Signs: 19:52 BP 109 / 66; Pulse 107; Resp 20; Temp 99; Pulse Ox 95% on 2 lpm NC; Weight 90.72 kg; jb4 Height 5 ft. 4 in. ; Pain 8/10; 21:15 BP 101 / 57; Pulse 99; Resp 19; Pulse Ox 97% on 2 lpm NC; jb4 22:00 BP 108 / 67; Pulse 101; Resp 17; Pulse Ox 92% on 2 lpm NC; jb4 23:39 BP 101 / 63; Pulse 92; Resp 19; Pulse Ox 89% on 2 lpm NC; jb4 23:42 Pulse Ox 94% on 3 lpm NC; jb4 19:52 Body Mass Index 34.33 (90.72 kg, 162.56 cm) jb4 19:52 Pain Scale: Adult jb4 23:39 Pt sleeping 4 ED Course: 19:45 No provider procedures requiring assistance completed. EKG done, by ED staff, reviewed jb4 by Hipolito CASTRO. 19:45 Maintain EMS IV. Dressing intact. Good blood return noted. Site clean \T\ dry. Gauge \T\ dalia 4 site: 20g RAC. IV is patent, with good blood return, Flushed right antecubital with 5 ml normal saline. 19:46 Patient arrived in ED. ds4 19:50 Hipolito Waldrop PA is PHCP. cp 19:50 Nestor Navas DO is Attending Physician. cp 19:52 Sudha Sams, STEVE is Primary Nurse. ll1 19:52 Arm band placed on right wrist. jb4 19:59 Triage completed. ll1 20:10 Troponin HS Sent. ll1 20:10 PT-INR Sent. ll1 20:10 NT PRO-BNP Sent. ll1 20:10 Magnesium Sent. ll1 20:10 LFT's Sent. ll1 20:10 CBC with Diff Sent. ll1 20:10 Basic Metabolic Panel Sent. ll1 20:10 Lipase Sent. ll1 20:19 Patient has correct armband on for positive identification. Placed in gown. Bed in low ll1 position. Call light in reach. Side rails up X 1. Client placed on continuous cardiac and pulse oximetry monitoring. NIBP monitoring applied. conveyor monitor on. 20:43 US Extremity Venous W Compression Max In Process Unspecified. EDMS 20:45 XRAY Chest (1 view) In Process Unspecified. EDMS 20:51 Daniel Melendez, RN is Primary Nurse. jb4 21:02 COVID-19/FLU A+B Sent. jb4 21:46 CT Chest For PE Angio In Process Unspecified. EDMS Administered Medications: 20:30 Drug: MethylPrednisoLONE IVP 125 mg Route: IVP; Site: right antecubital; jb4 20:30 Drug: fentaNYL (PF) IVP 25 mcg Route: IVP; Site: right antecubital; jb4 20:30 Drug: Levalbuterol Inhalation 1.25 mg Route: Inhalation; jb4 22:37 Drug: NS 0.9% IV 500 ml Route: IV; Rate: bolus; Site: right antecubital; jb4 22:37 Drug: AZITHromycin PO 500 mg Route: PO; jb4 22:41 Drug: Rocephin IV 1 grams Route: IV; Rate: calculated rate; Site: right antecubital; jb4 Medication: 20:19 VIS not applicable for this client. [facility] Outcome: 23:44 Discharge ordered by . missael Signatures: Dispatcher [employer] EDMS Lucas Mendiola 4 Hipolito Waldrop PA PA cp Bryson, James, RN RN jb4 Sudha Sams RN RN [facility] Corrections: (The following items were deleted from the chart) :53 19:52 Chief complaint: EMS states: Pt called EMS for SOB and chest pain. Was satting jb4 85% on 1.5, bumped her up to 2L NC, gave A:A 1:1 treatment. established a 20g IV to RAC. [facility] :53 19:52 Coronavirus screen: At this time, the client does not indicate any symptoms jb4 associated with coronavirus-19. [facility] : 19:52 Ebola Screen: No symptoms or risks identified at this time. [place] [address] 20:53 19:52 Initial Sepsis Screen: Does the patient meet any 2 criteria? HR > 90 bpm. Yes jb4 Does the patient have a suspected source of infection? No. Patient's initial sepsis screen is negative. [facility] :53 19:52 Risk Assessment: Do you want to hurt yourself or someone else? Patient reports no jb4 desire to harm self or others. [facility] 20:53 19:52 Onset of symptoms was May 05, 2022 [place] [address] 20:53 19:52 Transition of care: patient was not received from another setting of care. [place] [address] :53 19:52 Acuity: SHYLA 3 [place] [address] 20:53 19:52 Method Of Arrival: EMS: [facility] [place] [address] 20:53 19:52 BP 109 / 66; Pulse 107bpm; Resp 20bpm; Pulse Ox 95% 2 lpm Nasal Cannula; Temp jb4 99F; 90.72 kg; Height 5 ft. 4 in.; BMI: 34.3; Pain 8/10, Adult; [facility] 20:54 19:59 Arm band placed on right wrist. [facility] 20:54 19:45 No provider procedures requiring assistance completed. [facility] 20:54 19:45 Maintain EMS IV. Dressing intact. Good blood return noted. Site clean \T\ dry. jb4 Gauge \T\ site: 20g RAC. IV is patent, with good blood return, Flushed right antecubital with 5 ml normal saline [facility] 20:54 19:45 EKG done, by ED staff, reviewed by Hipolito CASTRO [place] [address] 20:55 20:19 General: Appears in no apparent distress. comfortable, Behavior is calm, jb4 cooperative, appropriate for age, [facility] 20:55 20:19 Pain: Complains of pain in chest and right upper quadrant Pain does not radiate. jb4 Pain currently is 8 out of 10 on a pain scale. [facility] 20:55 20:19 Neuro: Level of Consciousness is awake, alert, obeys commands, Oriented to jb4 person, place, time, situation, [facility] 20:55 20:19 Cardiovascular: Patient's skin is warm and dry. [place] [address] 20:55 20:19 Respiratory: Airway is patent Respiratory effort is even, unlabored, Respiratory jb4 pattern is regular, symmetrical, [facility] 20:55 20:19 GI: No signs and/or symptoms were reported involving the gastrointestinal system. jb4 [facility] 20:55 20:19 : No signs and/or symptoms were reported regarding the genitourinary system. [facility] 20:[facility] 20:19 EENT: No signs and/or symptoms were reported regarding the EENT system. [place] [address] 20:55 20:19 Derm: Skin is intact, Skin is pink, warm \T\ dry. [place] [address] 20:55 20:19 Musculoskeletal: Circulation, motion, and sensation intact. Range of motion: jb4 intact in all extremities, [facility] 20:56 20:19 [facility] ED Fall Risk Assessment (Adult) History of falling in the last 3 months, jb4 including since admission No falls in past 3 months (0 pts) Confusion or Disorientation No (0 pts) Score/Fall Risk Level 0 - 2 = Low Risk Oriented to surroundings, Maintained a safe environment, [facility] 20:56 20:19 Abuse screen: Denies threats or abuse. [place] [address] 20:56 20:19 Nutritional screening: No deficits noted. [place] [address] 20:56 20:19 Tuberculosis screening: No symptoms or risk factors identified. [place] [address] 23:42 23:41 BP 101 / 63; Pulse 92bpm; Resp 19bpm; Pulse Ox 89% 2 lpm Nasal Cannula; jb4 jb4 23:43 23:39 BP 101 / 63; Pulse 92bpm; Resp 19bpm; Pulse Ox 89% 2 lpm Nasal Cannula; jb4 jb4
--- NOTE | 2022-05-05 23:45 | EDPHYS ---
Physician Documentation [facility] Name: Roxanne Duran Age: 51 yrs Sex: Female : 1970 Arrival Date: 05/05/2022 Time: 19:46 Bed 3 Private MD: ED Physician Nestor Navas HPI: 05/05 20:00 This 51 yrs old Unknown Female presents to ER via EMS with complaints of Chest Pain. cp Historical: - Allergies: 19:59 No Known Allergies; ll1 - Home Meds: 19:59 Albuterol Inhl [Active]; Atrovent Inhl [Active]; ll1 - PMHx: 19:59 Anxiety; COPD; DVT Left leg; ll1 - PSHx: 19:59 partial hysterectomy; ll1 - Immunization history:: Adult Immunizations up to date. - Social history:: Smoking status: Patient denies any tobacco usage or history of. Exam: 19:52 ECG was reviewed by the Attending Physician. cp Vital Signs: 19:52 BP 109 / 66; Pulse 107; Resp 20; Temp 99; Pulse Ox 95% on 2 lpm NC; Weight 90.72 kg; jb4 Height 5 ft. 4 in. ; Pain 8/10; 21:15 BP 101 / 57; Pulse 99; Resp 19; Pulse Ox 97% on 2 lpm NC; jb4 22:00 BP 108 / 67; Pulse 101; Resp 17; Pulse Ox 92% on 2 lpm NC; jb4 23:39 BP 101 / 63; Pulse 92; Resp 19; Pulse Ox 89% on 2 lpm NC; jb4 23:42 Pulse Ox 94% on 3 lpm NC; jb4 19:52 Body Mass Index 34.33 (90.72 kg, 162.56 cm) jb4 19:52 Pain Scale: Adult jb4 23:39 Pt sleeping jb4 MDM: 19:59 Patient medically screened. cp 05/05 20:03 Order name: EKG; Complete Time: 20:04 cp 05/05 20:03 Order name: Cardiac monitoring; Complete Time: 20:09 cp 05/05 20:03 Order name: O2 Sat Monitoring; Complete Time: 20:10 cp 05/05 20:03 Order name: O2 Per Protocol; Complete Time: 20:10 cp 05/05 20:03 Order name: Labs collected and sent; Complete Time: 20:10 cp 05/05 20:03 Order name: IV Saline Lock; Complete Time: 20:10 cp 05/05 20:03 Order name: EKG - Nurse/Tech; Complete Time: 20:10 cp 05/05 20:03 Order name: PT-INR; Complete Time: 21:07 cp 05/05 20:03 Order name: Magnesium; Complete Time: 21:07 cp 05/05 20:03 Order name: NT PRO-BNP; Complete Time: 21:07 cp 05/05 20:03 Order name: Lipase; Complete Time: 21:07 cp 05/05 20:03 Order name: XRAY Chest (1 view); Complete Time: 21:07 cp 05/05 20:03 Order name: Basic Metabolic Panel; Complete Time: 21:07 cp 05/05 21:07 Interpretation: Normal except: K 3.2; GLUC 123; CRE 1.08; GFR 62. cp 05/05 20:03 Order name: CBC with Diff; Complete Time: 21:07 cp 05/05 21:08 Interpretation: Normal except: WBC 12.60; MPV 7.3. cp 05/05 20:03 Order name: Troponin HS; Complete Time: 21:07 cp 05/05 21:08 Interpretation: Reviewed. cp 05/05 20:03 Order name: US Extremity Venous W Compression Max; Complete Time: 21:27 cp 05/05 20:03 Order name: COVID-19/FLU A+B; Complete Time: 21:38 cp 05/05 21:09 Order name: CT Chest For PE Angio; Complete Time: 22:12 cp 05/05 22:48 Order name: Troponin High Sensitivity; Complete Time: 23:36 cp 05/05 23:36 Interpretation: Reviewed. cp 05/05 20:03 Order name: LFT's; Complete Time: 21:07 cp 05/05 23:37 Interpretation: Normal except: AST 13; ALB 3.0; GLOB 4.1; A/G 0.7. cp EC:52 Rate is 107 beats/min. Rhythm is regular. TX interval is normal. QRS interval is cp normal. QT interval is normal. T waves are Inverted in lead aVR. Interpreted by me. Reviewed by me. Administered Medications: 20:30 Drug: MethylPrednisoLONE IVP 125 mg Route: IVP; Site: right antecubital; jb4 20:30 Drug: fentaNYL (PF) IVP 25 mcg Route: IVP; Site: right antecubital; jb4 20:30 Drug: Levalbuterol Inhalation 1.25 mg Route: Inhalation; jb4 22:37 Drug: NS 0.9% IV 500 ml Route: IV; Rate: bolus; Site: right antecubital; jb4 22:37 Drug: AZITHromycin PO 500 mg Route: PO; jb4 22:41 Drug: Rocephin IV 1 grams Route: IV; Rate: calculated rate; Site: right antecubital; 4 Disposition Summary: 05/05/22 23:44 Discharge Ordered Location: Home cp Problem: new cp Symptoms: have improved cp Condition: Stable cp Diagnosis - COPD/ Chronic obstructive pulmonary disease with acute lower respiratory infection cp - Pneumonia in diseases classified elsewhere cp Followup: cp - With: Private Physician - When: 1 - 2 days - Reason: Recheck today's complaints Forms: - Medication Reconciliation Form cp - Thank You Letter cp - Antibiotic Education cp - Prescription Opioid Use cp Signatures: Dispatcher [employer] EDEdwin Tsai, CONSULTING MARINE ENGINEER-C CONSULTING MARINE ENGINEER-Cla1 Hipolito Waldrop PA PA cp Daniel Melendez, RN RN jb4 Sudha Sams RN RN ll1
[2022-05-06 00:38] VITALS: TEMP 99
[2022-05-06 00:42] VITALS: BP 101/63
[2022-05-06 00:43] VITALS: O2SAT 94
--- NOTE | 2022-05-07 17:38 | EKG ---
Test Date: 2022-05-05 Test Time: 19:46:28 Computer Bookkeeper: KIRSTY MEASUREMENT RESULTS: Intervals: Rate: 107 IN: 128 QRSD: 86 QT: 334 QTc: 445 [place]: P: 84 IN: 128 QRS: 77 T: 69 INTERPRETIVE STATEMENTS: Sinus tachycardia Otherwise normal ECG Compared to ECG 11/17/2021 17:33:40 Atrial abnormality no longer present Electronically Signed On 05-07-22 17:35:55 CDT by Bob Reyez
== END 2022-05-06 00:25 | disposition home or self-care (01) ==
LOC: ER 19:40
DX: J44.0 Chronic obstructive pulmonary disease with (acute) lower respiratory infection (principal); J18.9 Pneumonia, unspecified organism; R07.9 Chest pain, unspecified; R06.02 Shortness of breath; Z20.822 Contact with and (suspected) exposure to COVID-19; J44.9 Chronic obstructive pulmonary disease, unspecified; F41.9 Anxiety disorder, unspecified; I82.402 Acute embolism and thrombosis of unspecified deep veins of left lower extremity
CPT/HCPCS: 93005; 85025; 80048; 36415; 83735; 85610; 80076; 84484 ×2; 83690; 83880; 0240U; 71275; 71045; 93970; 96375; 96374; 99285; Q9967; J7614; J3010; J2930; J7040

== ENCOUNTER 2022-12-22 17:38 | Inpatient (IN) | payer OTHER ==
--- OUTSIDE RECORDS SUMMARY | 2022-12-22 17:43 | XMS REPORT | Continuity of Care Document ---
:1970 Author Organization [facility] t Address [address] [place] [address] [address] [place] [address] Care Team Providers Name Role Phone Colton Sarabia Primary Care Physician MECHE LAM Attending Clinician Unavailable Meche Lam MD Attending Clinician Doctor Unassigned, [place] Attending Clinician Unavailable Bradley Elliott MD Attending Clinician Meche Lechuga MD Attending Clinician Only, Adc Test Attending Clinician Unavailable Pob, [facility] Lab Main Attending Clinician Unavailable Jn Barrios Attending Clinician Unavailable MECHE LAM Admitting Clinician Unavailable Meche Lam MD Admitting Clinician Jn Barrios Admitting Clinician Unavailable Payers Payer Name Policy Type Policy Number Effective Date Expiration Date Shirley chamberlain [facility] [place] STAR [id number] 2020 00:00:00 [facility] DUAL [id number] 2022 00:00:00 COMP HMO D SNP Problems Condition Condition Condition Status Onset Resolution Last Treating Co mments Source Name Details Category Date Date Treatment Clinician Date Bronchitis Bronchitis Disease Active U forrest 1-02 ity of 00:00: [address] COPD COPD Disease Active 2014-02 Univers exacerbati exacerbati 2-17 it y of on on 00:00: [address] Allergies, Adverse Reactions, Alerts Allergy Allergy Status Severity Reaction(s) Onset Inactive Treating Comm ents Source Name Type Date Date Clinician NO KNOWN Drug Active [facility] ALLERGIE Class ity of S [facility] Social History Social Habit Start Date Stop Date Quantity Comments Source History of Current smoker [place] of tobacco use [facility] Tobacco use and 2022-05-31 2022-05-31 Smokeless tobacco Un iversity of exposure 00:00:00 00:00:00 non-user [facility] Alcohol intake 2022-05-31 2022-05-31 Ex-drinker [facility] 00:00:00 00:00:00 (finding) [facility] Exposure to 2022-05-15 2022-05-25 Not sure [facility] SARS-CoV-2 00:00:00 13:29:00 [facility] (event) [place] Sex Ass[birth year] At [birth year] Universit y of 00:00:00 00:00:00 [facility] Smoking Status Start Date Stop Date Source Ex-smoker 2022-05-31 00:00:00 2022-05-31 00:00:00 [facility] Medications Ordered Filled Start Stop Current Ordering Indication Dosage Frequency Signature Comments Components Source Medication Medication Date Date Medication? Clinician (SIG) Name Name ceFAZolin 2022- No PRN, Univers (ANCEF) 05-31 Starting ity of injection 17:19: 17:28 on Sat [place] 00 :42 05/31/22 at Medical 1219, Branch Until Sat05/31/22 at 1228, IRA, Intra-op neomycin-po 2022- No PRN, Unive rs lymyxin-dex 05-31 Starting ity of amethasone 17:19: 17:28 on Sat s (MAXITROL) 00 :42 05/31/22 at Med ical 3.5 1219, Branch mg/g-10,000 Until [facility] unit/g-0.1 05/31/22 at % 1228, ophthalmic Routine, ointment Intra-op gentamicin 2022- No PRN, Univer s injection 05-31 Starting ity o f 17:19: 17:28 on Missy [place] 00 :42 4 at Medical 1219, Branch Until Missy 05/31/22 at 1228, IRA, Intra-op dexamethaso 2022- No PRN, Unive rs ne 05-31 Starting ity of (DECADRON 17:19: 17:28 on [facility] PHOSPHATE) 00 :42 05/31/22 at [facility] ical injection 1219, Branch Until Missy 05/31/22 at 1228, Routine, Intra-op chondroitin 2022- No PRN, Unive rs sulf-sod 05-31 Starting ity of hyaluronate 17:11: 17:28 on [place]y [place] as (DUOVISC 00 :42 05/31/22 at Medic al VISCO 1211, Branch ELASTIC) Until Missy intraocular 05/31/22 at injection 1228, Routine, Intra-op tetracaine 2022- No PRN, Univer s (PONTOCAINE 05-31 Starting ity of ) 0.5 % 17:01: 17:28 on [facility] ophthalmic 00 :42 05/31/22 at [facility] ical drops 1201, Branch Until Missy 05/31/22 at 1228, Routine, Intra-op eye block 2022- No PRN, Univers syringe 11 05-31 Starting ity of mL 17:01: 17:28 on [facility] [place] 00 :42 05/31/22 at Medical 1201, Branch Until Missy 05/31/22 at 1228, Intra-op water for 2022- No PRN, Univers irrigation 05-31 Starting ity of irrigation 16:59: 17:28 on [facility] [place] solution 00 :42 05/31/22 at Medic al 1159, Branch Until Missy 05/31/22 at 1228, Routine, Intra-op sodium 2022- No PRN, Univers chloride 05-31 Starting ity of (NS) 16:58: 17:28 on Missy [place] injection 00 :42 05/31/22 at [facility] marcia 1158, Branch Until Missy 05/31/22 at 1228, Routine, Intra-op EPINEPHrine 2022- No PRN, Unive rs (PF) 05-31 Starting ity of 1:1,000 (1 16:58: 17:28 on [place] mg/mL) 00 :42 05/31/22 at [facility] (ADRENALIN 1158, Branch (PF)) Until Missy injection 05/31/22 at 1228, Routine, Intra-op balanced 2022- No PRN, Univers salt soln 05-31 Starting ity o f no.2 irrig. 16:57: 17:28 on [place] (BSS) 00 :42 05/31/22 at [facility] ophthalmic 1157, Branch solution Until Missy 05/31/22 at 1228, Routine, Intra-op cyclopent 2022- No .5mL 0.5 mL, Univ ers 1%-tropic 05-31 Left Eye, ity of 1%-phenyl 15:15: 15:32 ONCE, 1 [place] 2.5%-ketor 00 :00 dose, On Medic al 0.5% [place] Branch (MYDRIATIC 05/31/22 at #5) 1015, ophthalmic Routine, solution DSU Pre-op syringe 0.5 mL lactated 2022- No 1000mL at 42 Unive rs ringers IV 05-31 mL/hr, ity of infusion 15:15: 15:34 1,000 mL, Teddy as 1,000 mL 00 :00 IV Medical Infusion, Branch ONCE, 1 dose, On Missy 05/31/22 at 1015, Routine, DSU Pre-op cyclopent 2022- No .5mL 0.5 mL, Univ ers 1%-tropic 05-31 Left Eye, ity of 1%-phenyl 15:15: 15:32 ONCE, 1 [place] 2.5%-ketor 00 :00 dose, On Medic al 0.5% [place] Branch (MYDRIATIC 05/31/22 at #5) 1015, ophthalmic Routine, solution DSU Pre-op syringe 0.5 mL lactated 2023-0 2023- No 1000mL at 42 Unive rs ringers IV 4-13 04-13 mL/hr, ity of infusion 15:15: 15:34 1,000 mL, Teddy as 1,000 mL 00 :00 IV Medical Infusion, Branch ONCE, 1 dose, On Missy 05/31/22 at 1015, Routine, DSU Pre-op apixaban 5 2022-0 Yes 5mg Take 1 Unive rs mg tablet 4-13 tablet by ity o f 13:21: mouth in [place] 15 the Medical morning Branch and 1 tablet in the evening. rivaroxaban 2022-0 Yes 10mg Take 1 Univ ers (XARELTO) 4-13 tablet by ity o f 10 mg 13:21: mouth in [place] tablet 15 the Medical morning. Branch predniSONE 2022-0 Yes 10mg Take 1 Unive rs 10 mg 4-13 tablet by ity of tablet 13:21: mouth in [place] 15 the Medical morning. Branch fluticasone 0 Yes 1{puff} Inhale 1 Univers -umeclidin- 4-13 Puff in ity o f vilanter 13:21: the [place] (TRELEGY 15 morning. Medical ELLIPTA) Branch 200-62.5-25 mcg DsDv montelukast 2022-0 Yes 10mg Take 1 Univ ers 10 mg 4-13 tablet by ity of tablet 13:21: mouth as [place] 15 needed. Medical Branch albuterol 0 Yes 2{puff} Inhale 2 U nivers (PROAIR 4-13 Puffs ity of HFA) 90 13:21: every 6 [place] mcg/actuati 15 (six) Medical on inhaler hours as Branc h needed for Wheezing or Shortness of Breath. apixaban 5 2022-0 Yes 5mg Take 1 Unive rs mg tablet 4-13 tablet by ity o f 13:21: mouth in [place] 15 the Medical morning Branch and 1 tablet in the evening. rivaroxaban 2022-0 Yes 10mg Take 1 Univ ers (XARELTO) 4-13 tablet by ity o f 10 mg 13:21: mouth in [place] tablet 15 the Medical morning. Branch predniSONE 2022-0 Yes 10mg Take 1 Unive rs 10 mg 4-13 tablet by ity of tablet 13:21: mouth in [place] 15 the Medical morning. Branch fluticasone Yes 1{puff} Inhale 1 Univers -umeclidin- 4-13 Puff in ity o f vilanter 13:21: the [place] (TRELEGY 15 morning. Medical ELLIPTA) Branch 200-62.5-25 mcg DsDv montelukast 0 Yes 10mg Take 1 Univ ers 10 mg 4-13 tablet by ity of tablet 13:21: mouth as [place] 15 needed. Medical Branch albuterol Yes 2{puff} Inhale 2 U nivers (PROAIR 4-13 Puffs ity of HFA) 90 13:21: every 6 [place] mcg/actuati 15 (six) Medical on inhaler hours as Branc h needed for Wheezing or Shortness of Breath. apixaban 5 0 Yes 5mg Take 1 Unive rs mg tablet 4-13 tablet by ity o f 13:21: mouth in [place] 15 the Medical morning Branch and 1 tablet in the evening. rivaroxaban Yes 10mg Take 1 Univ ers (XARELTO) 4-13 tablet by ity o f 10 mg 13:21: mouth in [place] tablet 15 the Medical morning. Branch predniSONE Yes 10mg Take 1 Unive rs 10 mg 4-13 tablet by ity of tablet 13:21: mouth in [place] 15 the Medical morning. Branch fluticasone Yes 1{puff} Inhale 1 Univers -umeclidin- 4-13 Puff in ity o f vilanter 13:21: the [place] (TRELEGY 15 morning. Medical ELLIPTA) Branch 200-62.5-25 mcg DsDv montelukast 0 Yes 10mg Take 1 Univ ers 10 mg 4-13 tablet by ity of tablet 13:21: mouth as [place] 15 needed. Medical Branch albuterol Yes 2{puff} Inhale 2 U nivers (PROAIR 4-13 Puffs ity of HFA) 90 13:21: every 6 [place] mcg/actuati 15 (six) Medical on inhaler hours as Branc h needed for Wheezing or Shortness of Breath. TAKE AND 2021-02 No 1/2 TABLETS 2-15 DAILY. [...] 2-15 MOUTH EVERY 00:00: DAY 00 TRELEGY 2021- No ELLIPTA 2-15 200-62.5-25 00:00: MCG/INH 00 AEPB TAKE 1 2021- No TABLET BY 2-15 MOUTH EVERY 00:00: DAY AT 00 BEDTIME TAKE 2 2021- No TABLETS BY 2-15 MOUTH EVERY 00:00: DAY 00 ESCITALOPRA 2021-02 No M OXALATE 2-15 10 MG TABS 00:00: 00 ALPRAZOLAM 2021-02 No 0.25 MG 2-15 TABS 00:00: 00 ALBUTEROL 2021-02 No SULFATE HFA 2-15 108 (90 00:00: Base) 00 MCG/ACT AERS TAKE 1 2021-02 No TABLET BY 2-15 MOUTH EVERY 00:00: DAY 00 FLUOXETINE 2021- No HYDROCHLORI 2-15 DE 10 MG 00:00: CAPS 00 TAKE 1 2021-0 No TABLET BY 9-13 MOUTH EVERY 00:00: DAY FOR DAYS TAKE 1 2021-0 No 10 TABLET BY 8-12 MOUTH EVERY 00:00: DAY FOR TAKE 1 2021-0 No 10 TABLET BY 8-12 MOUTH EVERY 00:00: DAY FOR TAKE 1 2021-0 No 10 TABLET BY 8-12 MOUTH EVERY 00:00: DAY FOR DAYS TAKE 1 2021-0 No 10 TABLET BY 8-12 MOUTH EVERY 00:00: DAY FOR DAYS TAKE 1 2021-0 No 20 TABLET BY 7-26 MOUTH EVERY 00:00: DAY FOR DAYS TAKE 1 2021-0 No 20 TABLET BY 7-26 MOUTH EVERY 00:00: DAY FOR Lexapro 5 2021-0 No 1mg mg tablet 7-13 00:00: 00 hydroxyzine 2021-0 No 1mg HCl 25 mg 7-13 tablet 00:00: 00 Effexor XR 2-0 No 1mg 75 mg 7-13 capsule,ext 00:00: ended 00 release Effexor XR 2-0 No 1mg 75 mg 7-13 capsule,ext 00:00: ended 00 release Effexor XR 2-0 No 1mg 150 mg 7-13 capsule,ext 00:00: ended 00 release TAKE 1 2021-0 No 25 TABLET BY 7-13 MOUTH EVERY 00:00: DAY FOR 30 DAYS INHALE 1 2021-0 No PUFF BY 7-13 MOUTH EVERY 00:00: DAY 00 Dose 2-0 No Unknown 7-13 00:00: 00 Dose 2-0 No Unknown 7-13 00:00: 00 Dose 2-0 No Unknown 7-13 00:00: 00 Dose 2-0 No Unknown 7-13 00:00: 00 Dose 2-0 No Unknown 7-13 00:00: 00 TAKE 1 2-0 No 25 TABLET BY [...] 2-0 No Unknown 5-13 00:00: 00 Dose 2022-0 No Unknown 4-14 00:00: 00 Dose 2022-0 No Unknown 4-14 00:00: 00 Dose 2-0 No Unknown 4-14 00:00: 00 Dose 2022-0 [...] 2021-0 No Unknown 3-18 00:00: 00 prednisone 2-0 No mg 20 mg 3-18 [...] 2022-0 No Unknown 2-17 00:00: 00 venlafaxine 2-0 No 1mg ER 150 mg 2-17 capsule,ext [...] 2020-1 No Unknown 0-28 00:00: 00 prednisone 2020-1 No 2mg 20 mg 0-28 tablet 00:00: 00 levofloxaci 2020-1 No 1mg n 500 mg 0-28 tablet 00:00: 00 prednisone 2021-1 No 2mg 20 mg 0-04 tablet 00:00: [...] mcg/actuati 00:00: on aerosol 00 inhaler Symbicort 1-0 No 2mcg/ac 160 mcg-4.5 6-03 tuation mcg/actuati [...] mcg/actuati 00:00: on aerosol 00 inhaler Augmentin 2020-0 No 1mg 875 mg-125 5-03 mg tablet 00:00: 00 hydroxyzine 2020-0 No 1mg HCl 50 mg 5-03 tablet 00:00: 00 Effexor XR 2020-0 No 1mg 75 mg 5-03 capsule,ext 00:00: ended 00 release ProAir HFA 0 No 1mcg/ac 90 4-22 tuation mcg/actuati 00:00: on aerosol inhaler ProAir HFA 0 No 1mcg/ac 90 4-22 tuation mcg/actuati 00:00: on aerosol inhaler apixaban 5 2020-0 Yes 5mg Take 5 mg Un bert mg tablet 4-08 by mouth 2 ity of 13:00: (two) [place] 39 times Medical daily. Branch prednisone 2020-0 No 2mg 20 mg 3-26 tablet 00:00: 00 levofloxaci 2020-0 No 1mg n 500 mg 3-26 tablet 00:00: 00 prednisone 2020-0 No 2mg 20 mg 3-26 tablet 00:00: 00 levofloxaci 2020-0 No 1mg n 500 mg 3-26 tablet 00:00: 00 ProAir HFA 0 No 1mcg/ac 90 2-19 tuation mcg/actuati 00:00: on aerosol 00 inhaler ProAir HFA 0 No 1mcg/ac 90 2-19 tuation mcg/actuati 00:00: on aerosol 00 inhaler ipratropium 2020-0 No 3mg 0.5 2-19 base)/3 mg-albutero 00:00: mL l 3 mg (2.5 00 mg base)/3 mL nebulizatio n soln ProAir HFA 0 No 1mcg/ac 90 2-19 tuation mcg/actuati 00:00: on aerosol 00 inhaler ProAir HFA 0 No 1mcg/ac 90 2-19 tuation mcg/actuati 00:00: on aerosol 00 inhaler ipratropium 2020-0 No 3mg 0.5 2-19 base)/3 mg-albutero 00:00: mL l 3 mg (2.5 00 mg base)/3 mL nebulizatio n soln ProAir HFA 2020-0 No 1mcg/ac 90 2-03 tuation mcg/actuati 00:00: on aerosol inhaler ProAir HFA 2020-0 No 1mcg/ac 90 2-03 tuation mcg/actuati 00:00: on aerosol inhaler ProAir HFA 2019-1 No 1mcg/ac 90 [...] 50 mg 2-31 capsule 00:00: 00 gabapentin 2018-02 No 1mg 300 mg 2-31 capsule 00:00: [...] mg 20 mg 1-20 tablet 00:00: 00 predniSONE Yes 50mg Take 1 Unive rs 50 mg 02-26 tablet by ity of tablet 00:00: mouth [place] 00 daily. 5 Medical tabs once Branch daily for 3 days 4 tabs once daily for 3 days 3 tabs once daily for 3 days 2 tabs once daily for 3 days 1 tab once daily for 3 days predniSONE 2022- No 50mg Take 1 Univ ers 50 mg 02-26 tablet by ity of tablet 00:00: 00:00 mouth [place] 00 :00 daily. 5 Medical tabs once Branch daily for 3 days 4 tabs once daily for 3 days 3 tabs once daily for 3 days 2 tabs once daily for 3 days 1 tab once daily for 3 days predniSONE 2022- No 50mg Take 1 Univ ers 50 mg 02-26 tablet by ity of tablet 00:00: 00:00 mouth [place] 00 :00 daily. 5 Medical tabs once Branch daily for 3 days 4 tabs once daily for 3 days 3 tabs once daily for 3 days 2 tabs once daily for 3 days 1 tab once daily for 3 days clonazePAM 2018-0 Yes .5mg Take 1 Unive rs 0.5 mg 1-08 tablet by ity of tablet 00:00: mouth 3 [place] 00 (three) Medical times Branch daily. ipratropium 2018-0 Yes 3mL Inhale 3 Un bert -albuterol 1-08 mL 4 ity of 0.5 mg-3 00:00: (four) [place] mg(2.5 mg 00 times Medical base)/3 mL daily as Branc h nebulizer needed for solution Wheezing. clonazePAM 2017-0 Yes .5mg Take 1 Unive rs 0.5 mg 1-08 tablet by ity of tablet 00:00: mouth 3 [place] 00 (three) Medical times Branch daily. ipratropium 2018-0 Yes 3mL Inhale 3 Un bert -albuterol 1-08 mL 4 ity of 0.5 mg-3 00:00: (four) [place] mg(2.5 mg 00 times Medical base)/3 mL daily as Branc h nebulizer needed for solution Wheezing. clonazePAM 2018-0 Yes .5mg Take 1 Unive rs 0.5 mg 1-08 tablet by ity of tablet 00:00: mouth 3 (three) Medical times Branch daily. ipratropium 2018-0 Yes 3mL Inhale 3 Un bert -albuterol 1-08 mL 4 ity of 0.5 mg-3 00:00: (four) [place] mg(2.5 mg 00 times Medical base)/3 mL daily as Branc h nebulizer needed for solution Wheezing. clonazePAM 2018-0 Yes .5mg Take 1 Unive rs 0.5 mg 1-08 tablet by ity of tablet 00:00: mouth 3 (three) Medical times [place] daily. ipratropium 2018-0 Yes 3mL Inhale 3 Un bert -albuterol 1-08 mL 4 ity of 0.5 mg-3 00:00: (four) [place] mg(2.5 mg 00 times Medical base)/3 mL daily as Branc h nebulizer needed for solution Wheezing. Vital Signs Vital Name Observation Time Observation Value Comments Source Oxygen saturation in 2022-05-31 17:50:00 95 /min [facility] Arterial blood by [facility] Pulse oximetry Branch Systolic blood 2022-05-31 17:45:00 115 [facility]Hg[facility] Diastolic blood 2022-05-31 17:45:00 52 mm[Hg] [facility] Respiratory rate 2022-05-31 17:45:00 20 /min [facility] Heart rate 2022-05-31 17:23:00 84 /min [facility] Body temperature 2022-05-31 17:23:00 36.67 Arianna [facility] Body height 2022-05-25 18:00:00 162.6 cm [facility] Body weight 2022-05-25 18:00:00 92.08 kg [facility] BMI 2022-05-25 18:00:00 34.84 kg/m2 Universi ty [facility] Systolic blood 2022-05-31 15:31:00 122 mm[Hg] Univer sity of pressure [facility] Diastolic blood 2022-05-31 15:31:00 57 mm[Hg] Unive rsity of pressure [facility] Heart rate 2022-05-31 15:31:00 88 /min Universi ty of [facility] Respiratory rate 2022-05-31 15:31:00 18 /[facility] in 2022-05-31 15:31:00 99 /min [facility] Arterial blood by [facility] Pulse oximetry Branch Body temperature 2022-05-31 15:27:00 36.78 Arianna [facility] Body height 2022-05-25 18:00:00 162.6 [facility] Body weight 2022-05-25 18:00:00 92.08 kg [facility] BMI 2022-05-25 18:00:00 34.84 kg/m2 [facility] BP Systolic 2022-01-17 14:48:00 BP Diastolic 2022-01-17 [...] Respiratory Rate 2019-02-17 16:09:00 16.00 /min Procedures Procedure Date / Time Performing Source Performed Clinician PHACOEMULSIFICATION OF 2022-05-31 Meche Lam [facility] CATARACT WITH INTRAOCULAR 16:49:00 [place] Palma l Branch LENS IMPLANT PATIENT QUESTIONNAIRE 2022-05-31 Doctor Unassigned, [facility] 05:01:00 [place] [facility] ASSIGNMENT OF BENEFITS 2022-05-22 Doctor Unassigned, [facility] 21:36:19 [place] [facility] Plan of Care Planned Activity Planned Date Details Comments Source Goal Plan of Care Note [code = 97318-8] Goal Plan of Care Note [code = 44373-8] Goal Plan of Care Note [code = 65209-6] Goal Plan of Care Note [code = 66930-0] Goal Plan of Care Note [code = 56197-4] Goal Plan of Care Note [code = 84176-2] Goal Plan of Care Note [code = 40649-3] Goal Plan of Care Note [code = 51386-8] Goal Plan of Care Note [code = 49483-1] Goal Plan of Care Note [code = 88571-5] Goal Plan of Care Note [code = 92123-9] Goal Plan of Care Note [code = 21296-2] Goal Plan of Care Note [code = 47345-4] Goal Plan of Care Note [code = 14049-6] Goal Plan of Care Note [code = 36061-4] Goal Plan of Care Note [code = 17213-5] Goal Plan of Care Note [code = 25255-7] Goal Plan of Care Note [code = 50604-5] Goal Plan of Care Note [code = 20050-7] Goal Plan of Care Note [code = 76910-2] Goal Plan of Care Note [code = 76093-9] Goal Plan of Care Note [code = 85205-2] Goal Plan of Care Note [code = 26487-6] Goal Plan of Care Note [code = 86061-8] Goal Plan of Care Note [code = 46297-6] Goal Plan of Care Note [code = 34204-6] Goal Plan of Care Note [code = 49539-8] Goal Plan of Care Note [code = 09081-7] Goal Plan of Care Note [code = 97085-7] Goal Plan of Care Note [code = 34662-2] Goal Plan of Care Note [code = 08416-6] Goal Plan of Care Note [code = 29237-6] Goal Plan of Care Note [code = 01561-2] Goal Plan of Care Note [code = 33957-3] Goal Plan of Care Note [code = 86687-4] Goal Plan of Care Note [code = 82564-7] Goal Plan of Care Note [code = 61087-8] Goal Plan of Care Note [code = 10477-5] Goal Plan of Care Note [code = 21975-7] Goal Plan of Care Note [code = 26942-6] Goal Plan of Care Note [code = 04839-2] Goal Plan of Care Note [code = 92215-0] Goal Plan of Care Note [code = 57070-3] Goal Plan of Care Note [code = 73000-9] Goal Plan of Care Note [code = 81975-7] Goal Plan of Care Note [code = 06724-9] Goal Plan of Care Note [code = 23396-1] Goal Plan of Care Note [code = 23704-4] Goal Plan of Care Note [code = 22462-0] Goal Plan of Care Note [code = 74765-8] Encounters Start End Encounter Admission Attending Care Care Encounter Source Date/Time Date/Time Type Type Clinicians Facility Department ID 2020-12-18 Outpatient GINA MEIER OPH [id number] Univers 11:16:09 MECHE yang [facility] 2022-11-15 2022-11-15 Outpatient JAK SFA [id number] 023 Chris 08:28:38 08:28:38 0928 [facility] 2022-10-11 2022-10-11 Outpatient SFA SFA [id number] 023 Chris 16:43:25 16:43:25 0824 F Chas 2022-09-07 2022-09-07 Outpatient JAK SFA [id number] Chris 13:43:12 13:43:12 0721 F Chas 2022-09-04 2022-09-04 Outpatient SFA SFA [id number] Chris 14:30:07 14:30:07 0718 F Chas 2022-05-31 2022-05-31 Outpatient GINA MEIER OPH [id number] Univers 10:13:00 13:09:00 MECHE ity of [facility] 2022-05-31 2022-05-31 Hospital [facility] 1.2.840.114 [id number] Univers 10:13:00 13:09:00 Encounter Meche ROLA 350.1.13.10 ity of [place] 4.2.[place].2.686 [place] SUR[place]ICAL [id number] [facility] 071 Branch 2022-05-31 2022-05-31 Surgery [facility] 1.2.840.114 [id number] Univers 11:37:00 12:12:00 Meche CANELA 350.1.13.10 i ty of [place] 4.2.7.2.[place] [id number] [facility] 020 Branch 2022-05-31 2022-05-31 Orders Doctor CLAYTON 1.2.840.114 [id number] Univers 00:00:00 00:00:00 Only Unassigned, CHRIS 350.1.13.10 ity of [place] [facility] 4.2.7.2.686 Teddy as [id number] [facility] 009 [place] 2022-05-29 2022-05-29 Outpatient SFA SFA [id number] Chris 10:43:07 10:43:07 0411 [facility] 2022-05-22 2022-05-22 Orders Doctor CLAYTON 1.2.840.114 [id number] Univers 00:00:00 00:00:00 Only Unassigned, CHRIS 350.1.13.10 ity of [place] [facility] 4.2.7.2.686 Teddy as [id number] [facility] 009 [place] 2022-05-17 2022-05-17 Outpatient SFA SFA [id number] 023 Chris 13:40:22 13:40:22 0330 [facility] 2022-04-18 2022-04-18 Outpatient SFA SFA [id number] 023 Chris 13:53:40 13:53:40 0301 [facility] 2022-04-17 2022-04-17 Outpatient SFA SFA [id number] Chris 09:59:04 09:59:04 0228 [facility] 2022-03-10 2022-03-10 Outpatient SFA SFA [id number] 023 Chris 12:17:29 12:17:29 0121 F Chas 2022-02-01 2022-02-01 Outpatient [id number] 00:00:00 00:00:00 Visit [id number] 2021-10-04 2021-10-04 Outpatient [id number] 00:00:00 00:00:00 Visit [id number] 2020-05-26 2020-05-26 [facility] 1.2.840.114 [id number] 10:30:00 12:59:00 Encounter Meche Canela 350.1.13.10 [place] 4.2.7.2.686 Surgical [id number] [place] [address] 2020-05-26 2020-05-26 Surgery [facility] 1.2.840.114 [id number] 12:12:00 12:48:00 [place] 350.1.13.10 [place] 4.2.7.2.686 Surgical [id number] [place] 020 2020-05-26 2020-05-26 Anesthesia Bradley Elliott [facility] 1.2.840. 114 [id number] 12:09:00 12:37:00 Event Meche Lechuga 350.1.13. 10 Nicole 4.2.7.2.686 Surgical [id number] [place] 020 2020-05-25 2020-05-25 Laboratory Only, [facility] 1.2.840.114 [id number] 10:21:30 10:36:30 Only Test [place]ola 350.1.13.10 [place] 4.2.7.2.686 [place] [id number] [facility] 2020-05-25 2020-05-25 Outpatient [facility] [id number] Univers 10:15:00 10:15:00 MECHE yang [facility] 2020-05-19 2020-05-19 Cardiac Care Nurse Torie, Chata [facility] 1.2.840.114 [id number] 12:11:02 12:26:02 Visit Lab Main Rola 350.1.13.10 [place] 4.2.7.2.686 Nas[place] [id number] [facility] 353 Building 2020-05-19 2020-05-19 Outpatient Marig [facility] [id number] [facility] 12:15:00 12:15:00 MECHE [facility] 2020-05-19 2020-05-19 Orders Doctor CLAYTON 1.2.840.114 [id number] 00:00:00 00:00:00 Only Unassigned, CHRIS [id number] [place] [facility] [id number] [id number] 2019-12-08 2019-12-08 Outpatient RAMIRO Barrios, [facility] [id number] [facility] 10:14:00 10:14:[address] Results Test Description Test Time Test Comments Results Result Comments Source CULTURE, URINE 2022-11-17 SPECIMEN NUMBER: 08:[id number] CULTURE, URINE SPECIMEN NUMBER: [id number] SPECIMEN COMMENT: URINE SOURCE: URINE REPORT STATUS: FINAL FINAL REPORT: 11/17/2022 50-100,000 CFU/ML UROGENITAL RICKEY PRESENT NO COMMON PATHOGENS UNLESS OTHERWISE INDICATED, ALL TESTING PERFORMED AT [facility] [address] [place] [address] DIRECTOR AMBULATORY: CHRISTINA STEVENS M.D. CLIA NUMBER [id number] [facility] [place]. [id number] LIPID PANEL 2022-09-08 04:49:16 Test Item Value Reference Range Interpretation Comme nts CHOLESTEROL (test code = 2210) 272 MG/DL <200 H TRIGLYCERIDES (test code = 2232) 120 MG/DL <150 HDL CHOLESTEROL (test code = 76 MG/DL >39 2220) CALC LDL CHOL (test code = 2237) 171 MG/DL <100 H NOTE: CALCULATED LDL IS BASED ON ZULEYMA-CISNEROS METHOD WHICHINCLUDES A DJUSTABLE TRIGLYCERIDE:VL DL CHOLESTEROL RATIO.THIS FACT OR VARIES BY MEASURED TRIGLY CERIDE AND NON-HDLCHOLESTE ROL CONCENTRATIONS WITH INCREASED CALCULATED LDL SEENIN HIGHER T RIGLYCERIDE OR LOWER NON-HDL S PECIMENS. FOR MOREINFORMATION , SEE CLIENT ANNOUNCEMENT AT [email or web address] RATIO LDL/HDL (test code = 2.25 RATIO <3.22 UNLESS OTHERWISE INDICATED, ALL 2238) TESTING PERFORM ED AT [facility], [facility]. [address] [place] [address] LABORATORY DIRE CTOR: CHRISTINA STEVENS M.D. C RAUL NUMBER [id number] [facility] [place]. [id number] HEMOGLOBIN [id number] 02:57:56 Test Item Value Reference Range Interpretation Comments HEMOGLOBIN A1c (test code = 53117) 5.6 % 4.2-5.6 TSH, THIRD [id number] 05:54:28 Test Item Value Reference Range Interpretation Comments TSH, THIRD GENERATION (test code 0.631 UIU/ML 0.400-4.100 = 2821) HEMOGLOBIN [id number] 04:59:53 Test Item Value Reference Range Interpretation Comments HEMOGLOBIN A1c (test 6.1 % 4.2-5.6 H AMERIC AN DIABETES code = 26400) ASSOCIATION IDELINES FOR HGB A1C: PREDIABETES/INC REASED RISK . . . . . . . 5.7 -6.4% DIAGNOSIS OF DI ABETES . . . . . . . . . >=6 .5% WITH CONFIRMATION OR APPROPRIATE SYMPTOMS NOTE: ASSAY MAY BE AFFECTED BY HEMOGLOBINOPATH IES (SICKLE CELL ANEMIA, S- C DISEASE, OTHERS) OR HUSSEIN FICIALLY LOWERED BY DECR EASED RED CELL SURVIVAL ( HEMOLYTIC ANEMIAS, BLOOD LOSS, ETC.). CONSIDER ALTERN ATE TESTING OR LABORATORY C ONSULTATION. COMPREHENSIVE METABOLIC [id number] 03:54:48 Test Item Value Reference Range Interpretation Comments GLUCOSE (test code = 101 MG/DL 70-99 H 2216) BUN (test code = 20 MG/DL 08-07) CREATININE (test 0.99 MG/DL 0.60-1.30 code = 2214) eGFR (2020 CKD-EPI) 69 ML/MIN/1.73 >60 (test code = 97418) CALC BUN/CREAT (test 20 RATIO 08-15 code = 2235) SODIUM (test code = 144 MEQ/L 439-728 6599) POTASSIUM (test code 4.5 MEQ/L 3.5-5.4 = 222) CHLORIDE (test code 101 MEQ/L 95-107 = 2215) CARBON DIOXIDE (test 30 MEQ/L 19-31 code = 2206) CALCIUM (test code = 9.8 MG/DL 8.5-10.5 2208) PROTEIN, TOTAL (test 7.0 G/DL 6.1-8.3 code = 2229) ALBUMIN (test code = 4.4 G/DL 3.5-5.2 2200) CALC GLOBULIN (test 2.6 G/DL 1.9-3.7 code = 2240) CALC A/G RATIO (test 1.7 RATIO 1.0-2.6 code = 2234) BILIRUBIN, TOTAL 0.3 MG/DL See_Comment [Automated message] (test code = 220) The syste m which generated this result transmit lenard reference range : <=1.2. The refe rence range was not u sed to interpret th is result as normal/abnormal . ALKALINE PHOSPHATASE 80 U/L 40-132 (test code = 220) AST (test code = 18 U/L 9-40 2217) ALT (test code = 11 U/L 5-40 2218) LIPID [id number] 03:54:48 Test Item Value Reference Range Interpretation Comments CHOLESTEROL (test 253 MG/DL <200 H code = 2210) TRIGLYCERIDES (test 164 MG/DL <150 H code = 2232) HDL CHOLESTEROL (test 94 MG/DL >39 code = 2220) CALC LDL CHOL (test 131 MG/DL <100 H NOTE: C ALCULATED LDL code = 2237) IS BASED ON ZULEYMA-CISNEROS METHOD WHICHINCLUDES ADJUSTABLE TRIGLYCERIDE:VL DL CHOLESTEROL RAT IO.THIS FACTOR VARIES B Y MEASURED TRIGLY CERIDE AND NON-HDLCHOL ESTEROL CONCENTRATIONS WITH INCREASED CALCU LATED LDL SEENIN HIGH ER TRIGLYCERIDE OR LOWER NON-HDL SPECIME NS. FOR MOREINFORMATION , SEE CLIENT ANNOUNCE MENT AT [email or web address] RATIO LDL/HDL 1.39 RATIO <3.22 [facility] has important (test code = 2238) pathology staff changes effecti ve 04/18/2022. New pathology staff will provide uninter rupted, excellent patie nt care and clinical consultation. S ee URL: [email or web address]. UNLE SS OTHERWISE INDIC ATED, ALL TESTING PER FORMED AT [facility] [employer] [place]. [address] [facility] [place] [address] TAMMY JARRETT DIRECTOR: MARIE STEVENS M.D. CLIA NUMBER [id number] CAP ACCREDITATION N O. [id number] CBC W/AUTO DIFF WITH [id number] 03:51:06 Test Item Value Reference Range Interpretation Comments WBC (test code = 9.6 K/UL 3.5-11.0 1001) RBC (test code = 4.70 M/UL 3.80-5.40 1002) HEMOGLOBIN (test code 14.9 G/DL 11.5-15.5 = 1003) HEMATOCRIT (test code 44.1 % 34.0-45.0 = 1004) MCV (test code = 93.8 fL 80.0-99.0 1005) MCH (test code = 31.7 PG 25.0-33.0 1006) MCHC (test code = 33.8 G/DL 31.0-36.0 1007) RDW (test code = 12.5 % 11.5-15.0 1038) NEUTROPHILS (test 77.6 % code = 1008) LYMPHOCYTES (test 18.3 % code = 1010) MONOCYTES (test code 3.4 % = 1011) EOSINOPHILS (test 0.0 % code = 1012) BASOPHILS (test code 0.1 % = 1013) IMMATURE GRANULOCYTES 0.6 % (test code = 1036) NUCLEATED RBCS (test 0.0 /100 WBC'S See_Comment [Aut omated code = 1065) message] The sy stem which generated this result transmitted reference range : 0.0. The refere nce range was not u sed to interpret th is result as normal/abnormal . PLATELET COUNT (test 272 K/UL 130-400 code = 1015) ABSOLUTE NEUTROPHILS 7.42 K/UL 1.50-7.50 (test code = 1066) ABSOLUTE LYMPHOCYTES 1.75 K/UL 1.00-4.00 (test code = 1067) ABSOLUTE MONOCYTES 0.33 K/UL 0.20-1.00 (test code = 1068) ABSOLUTE EOSINOPHILS 0.00 K/UL 0.00-0.50 (test code = 1040) ABSOLUTE BASOPHILS 0.01 K/UL 0.00-0.20 (test code = 1069) ABS IMMATURE 0.06 K/UL 0.00-0.10 GRANULOCYTES (test code = 1020) ABS NUCLEATED RBCS 0.00 K/UL 0.00-0.11 (test code = 72996) OCCULT BLD,FECAL,IMMUNOASSAY [id number] 11:30:47 Test Item Value Reference Range Interpretation Comments OCCULT BLD, FECAL NEGATIVE NEGATIVE CPL h as important (test code = 78100) patholog y staff changes effective 04/18. New pathology s taff will provide uninter rupted, excellent patie nt care and clinical consul tation. See URL: [email or web address]. UNLESS OT HERWISE INDICATED, ALL TESTING PERFORMED AT [facility] [employer] [employer]. [address] [place] [id number] [place] [address] DIRECTOR: Kana MCFARLAND RAUL NUMBER [id number] CAP ACCREDITATION N O. [id number] RSV BY [id number] 00:00:00 Test Item Value Reference Range Interpretation Comments RSV BY DFA (test code = 96399) Negative SOURCE (test code = 26983) Not Provided RSV BY [id number] 00:00:00 Test Item Value Reference Range Interpretation Comments RSV BY DFA (test code = 35506) Negative SOURCE (test code = 11435) Not Provided RSV BY [id number] 00:00:00 Test Item Value Reference Range Interpretation Comments RSV BY DFA (test code = 51404) Negative SOURCE (test code = 06580) Not Provided RSV BY [id number] 00:00:00 Test Item Value Reference Range Interpretation Comments RSV BY DFA (test code = 02283) Negative SOURCE (test code = 36162) Not Provided SARS-CoV-2 (COVID-19) by RT-PCR (HIGH RISK)2020-11-23 00:00:00 Test Item Value Reference Range Interpretation Comments SARS-CoV-2 INTERPRETATION (test NEGATIVE code = 53977) SOURCE (test code = 86281) NOT SPECIFIED SARS-CoV-2 (COVID-19) by RT-PCR (HIGH RISK)2020-11-23 00:00:00 Test Item Value Reference Range Interpretation Comments SARS-CoV-2 INTERPRETATION (test NEGATIVE code = 79538) SOURCE (test code = 56699) NOT SPECIFIED SARS-CoV-2 (COVID-19) by RT-PCR (HIGH RISK)2020-11-23 00:00:00 Test Item Value Reference Range Interpretation Comments SARS-CoV-2 INTERPRETATION (test NEGATIVE code = 01237) SOURCE (test code = 17625) NOT SPECIFIED SARS-CoV-2 (COVID-19) by RT-PCR (HIGH RISK)2020-11-23 00:00:00 Test Item Value Reference Range Interpretation Comments SARS-CoV-2 INTERPRETATION (test NEGATIVE code = 61204) SOURCE (test code = 03676) NOT SPECIFIED [id number] 00:00:00 Test Item Value Reference Range Interpretation Comments TSH, THIRD GENERATION (test code 1.080 UIU/ML = 2821) [id number] 00:00:00 Test Item Value Reference Range Interpretation Comments TSH, THIRD GENERATION (test code 1.080 UIU/ML = 2821) [id number] 00:00:00 Test Item Value Reference Range Interpretation Comments TSH, THIRD GENERATION (test code 1.080 UIU/ML = 2821) CBC W/AUTO [id number] 00:00:00 Test Item Value Reference Range Interpretation [...] NUCLEATED RBCS (test code = 0.00 K/UL 25636) CBC W/AUTO [id number] 00:00:00 Test Item Value Reference Range Interpretation [...] NUCLEATED RBCS (test code = 0.00 K/UL 02339) CBC W/AUTO [id number] 00:00:00 Test Item Value Reference Range Interpretation [...] NUCLEATED RBCS (test code = 0.00 K/UL 54803) VITAMIN D, 25 [id number] 00:00:00 Test Item Value Reference Range Interpretation Comments VITAMIN D, 25 OH (test code = 4958) 15 NG/ML VITAMIN D, 25 [id number] 00:00:00 Test Item Value Reference Range Interpretation Comments VITAMIN D, 25 OH (test code = 4958) 15 NG/ML [id number] 00:00:00 Test Item Value Reference Range Interpretation Comments TSH, THIRD GENERATION (test code 1.080 UIU/ML = 2821) [id number] 00:00:00 Test Item Value Reference Range Interpretation Comments TSH, THIRD GENERATION (test code 1.080 UIU/ML = 2821) [id number] 00:00:00 Test Item Value Reference Range Interpretation Comments TSH, THIRD GENERATION (test code 1.080 UIU/ML = 2821) CBC W/AUTO [id number] 00:00:00 Test Item Value Reference Range Interpretation [...] NUCLEATED RBCS (test code = 0.00 K/UL 50891) CBC W/AUTO [id number] 00:00:00 Test Item Value Reference Range Interpretation [...] NUCLEATED RBCS (test code = 0.00 K/UL 11021) CBC W/AUTO [id number] 00:00:00 Test Item Value Reference Range Interpretation [...] NUCLEATED RBCS (test code = 0.00 K/UL 25743) VITAMIN D, 25 [id number] 00:00:00 Test Item Value Reference Range Interpretation Comments VITAMIN D, 25 OH (test code = 4958) 15 NG/ML VITAMIN D, 25 [id number] 00:00:00 Test Item Value Reference Range Interpretation Comments VITAMIN D, 25 OH (test code = 4958) 15 NG/ML SARS-COV-2 (COVID19), NAAT [ADDED]2020-03-04 00:00:00 Test Item Value Reference Range Interpretation Comments SARS-CoV-2 INTERPRETATION (test POSITIVE code = 92142) SOURCE (test code = 12655) NOT SPECIFIED SARS-COV-2 (COVID19), NAAT [ADDED]2020-03-04 00:00:00 Test Item Value Reference Range Interpretation Comments SARS-CoV-2 INTERPRETATION (test POSITIVE code = 05798) SOURCE (test code = 90748) NOT SPECIFIED SARS-COV-2 (COVID19), NAAT [ADDED]2020-03-04 00:00:00 Test Item Value Reference Range Interpretation Comments SARS-CoV-2 INTERPRETATION (test POSITIVE code = 05788) SOURCE (test code = 42000) NOT SPECIFIED SARS-COV-2 (COVID19), NAAT [ADDED]2020-03-04 00:00:00 Test Item Value Reference Range Interpretation Comments SARS-CoV-2 INTERPRETATION (test POSITIVE code = 92732) SOURCE (test code = 55854) NOT SPECIFIED - XR CHEST 2 [id number] 11:11:00 [facility] AMADA RIVERA : 1970 Sex: F FAX:Jn Barton MD [phone] [place]: St: REG Name: AMADA RIVERA [facility] [place] : 1970 Age/S: 49/F [address] [place] [address] Unit #: [id number] Loc: [place] [address] Phys: Jn Barrios MD Acct: [id number] Dis Date: Status: REG CLI PHONE #: [phone] Exam Date: 12/08/2019 1111 FAX #: [phone] Reason: R06.02, SHORTNESS OF BREATH. EXAMS: CPT CODE: [id number] XR CHEST 2 V 99095 CLINICAL HISTORY:R06.02, SHORTNESS OF BREATH. COMPARISON: NONE [...] Print D/T: S: 12/08/2019 (1418) PAGE 1 [id number] (COVID-19) by RT-PCR (HIGH RISK)2019-09-18 00:00:00 Test Item Value Reference Range Interpretation Comments SARS-CoV-2 INTERPRETATION (test NEGATIVE code = 45783) SOURCE (test code = 58424) NOT SPECIFIED SARS-CoV-2 (COVID-19) by RT-PCR (HIGH RISK)2019-09-18 00:00:00 Test Item Value Reference Range Interpretation Comments SARS-CoV-2 INTERPRETATION (test NEGATIVE code = 00261) SOURCE (test code = 01580) NOT SPECIFIED SARS-CoV-2 (COVID-19) by RT-PCR (HIGH RISK)2019-09-18 00:00:00 Test Item Value Reference Range Interpretation Comments SARS-CoV-2 INTERPRETATION (test NEGATIVE code = 97923) SOURCE (test code = 48176) NOT SPECIFIED SARS-CoV-2 (COVID-19) by RT-PCR (HIGH RISK)2019-09-18 00:00:00 Test Item Value Reference Range Interpretation Comments SARS-CoV-2 INTERPRETATION (test NEGATIVE code = 08195) SOURCE (test code = 03883) NOT SPECIFIED CBC W/AUTO [id number] 00:00:00 Test Item Value Reference Range Interpretation [...] code = 1015) 223 K/UL CBC W/AUTO [id number] 00:00:00 Test Item Value Reference Range Interpretation [...] code = 1015) 223 K/UL CBC W/AUTO [id number] 00:00:00 Test Item Value Reference Range Interpretation [...] code = 1015) 223 K/UL COMPREHENSIVE METABOLIC [id number] 00:00:00 Test Item Value Reference Range Interpretation Comments GLUCOSE (test code = 2217) 83 MG/DL BUN (test code = 2208) 17 MG/DL CREATININE (test code = 2214) 0.96 MG/DL eGFR AMER. (test code 80 ML/MIN/1.73 = 94614) eGFR NON- AMER. (test 69 ML/MIN/1.73 code = 34129) CALC BUN/CREAT (test code = 18 RATIO [...] code = 2219) 15 U/L COMPREHENSIVE METABOLIC [id number] 00:00:00 Test Item Value Reference Range Interpretation Comments GLUCOSE (test code = 2217) 83 MG/DL BUN (test code = 2208) 17 MG/DL CREATININE (test code = 2214) 0.96 MG/DL eGFR AMER. (test code 80 ML/MIN/1.73 = 72286) eGFR NON- AMER. (test 69 ML/MIN/1.73 code = 44741) CALC BUN/CREAT (test code = 18 RATIO [...] code = 2219) 15 U/L CBC W/AUTO [id number] 00:00:00 Test Item Value Reference Range Interpretation [...] code = 1015) 223 K/UL CBC W/AUTO [id number] 00:00:00 Test Item Value Reference Range Interpretation [...] code = 1015) 223 K/UL CBC W/AUTO [id number] 00:00:00 Test Item Value Reference Range Interpretation [...] code = 1015) 223 K/UL COMPREHENSIVE METABOLIC [id number] 00:00:00 Test Item Value Reference Range Interpretation Comments GLUCOSE (test code = 2217) 83 MG/DL BUN (test code = 2208) 17 MG/DL CREATININE (test code = 2214) 0.96 MG/DL eGFR AMER. (test code 80 ML/MIN/1.73 = 72984) eGFR NON- AMER. (test 69 ML/MIN/1.73 code = 75598) CALC BUN/CREAT (test code = 18 RATIO [...] code = 2219) 15 U/L COMPREHENSIVE METABOLIC [id number] 00:00:00 Test Item Value Reference Range Interpretation Comments GLUCOSE (test code = 2217) 83 MG/DL BUN (test code = 2208) 17 MG/DL CREATININE (test code = 2214) 0.96 MG/DL eGFR AMER. (test code 80 ML/MIN/1.73 = 50826) eGFR NON- AMER. (test 69 ML/MIN/1.73 code = 34366) CALC BUN/CREAT (test code = 18 RATIO [...]
[2022-12-22 18:15] LABS: Absolute Lymphocytes (CBC) 2.7 K/uL (0.7-4.9); Hematocrit 41.4 % (36.0-45.0); Lymphocytes % 23.4 % (15.3-44.8); MCV 94.6 fL (80-100); MPV 6.9 fL (7.6-11.3); Platelets 205 thou/uL (152-406); RBC Red Blood Cell Count 4.38 M/uL (3.86-4.86)
[2022-12-22] MEDS ORDERED: MAGNESIUM SULFATE 1 gm IVPB 1 GM/100 ML BAG IV ONE (18:25)
[2022-12-22] MEDS ORDERED: ALBUTEROL 2.5 MG/3 ML NEB SOL ONE (18:25)
[2022-12-22] MEDS ORDERED: IPRATROPIUM BROM 0.5MG/2.5ML ONE (18:25)
[2022-12-22] MEDS ORDERED: METHYLPREDNISOLONE 125 MG INJ ONE (18:25)
[2022-12-22 18:35] LABS: ALT/SGPT 15 U/L (13-56); AST/SGOT 11 U/L (15-37); Alkaline Phosphatase 80 U/L (45-117); BUN Blood Urea Nitrogen 25 mg/dL (7-18); Bicarbonate 32 mEq/L (21-32); Bilirubin Total 0.4 mg/dL (0.2-1.0); Glomerular Filtration Rate 56 ml/min (=/>90); Glucose Level 117 mg/dL (74-106); Magnesium 2.2 mg/dL (1.6-2.4); NT PRO-BNP 206 pg/mL (<125); Potassium 3.7 mEq/L (3.5-5.1); Protein, Total 6.6 g/dL (6.4-8.2); Sodium Level 140 mEq/L (136-145); Troponin High Sensitivity 6.6 pg/mL (<58.9)
[2022-12-22 18:38] LABS: Bilirubin Direct < 0.1 mg/dL (0-0.2); Bilirubin Indirect, Calculated ND mg/dL (0.2-0.8)
[2022-12-22 18:41] LABS: SARS-CoV-2 Antigen Rapid Res Negative (Negative)
--- NOTE | 2022-12-22 18:52 | RAD REPORT ---
EXAM DESCRIPTION: RAD - Chest Single View - 12/22/2022 6:44 pm CLINICAL HISTORY: COPD;Cough;Dyspnea COMPARISON: Chest Single View dated 05/05/2022; Chest Single View dated 11/17/2021; Chest Single View dated 07/15/2021; Chest Single View dated 07/13/2021 FINDINGS: Lines: None. Lungs: No evidence of edema or pneumonia. Pleural: No significant pleural effusions or pneumothorax. Cardiac: The heart size is within normal limits. Mediastinum: Within normal limits. Bones: No acute fractures. Other: None IMPRESSION: No acute cardiopulmonary disease.
--- NOTE | 2022-12-22 19:27 | RAD REPORT ---
EXAM DESCRIPTION: CT - Chest For Pe Angio - 12/22/2022 7:12 pm CLINICAL HISTORY: DYSPNEA COMPARISON: Chest For Pe Angio dated 05/05/2022; Chest For Pe Angio dated 11/17/2021; Chest For Pe Ang io dated 07/13/2021; Chest For Pe Angio dated 12/18/2020 TECHNIQUE: Dynamically enhanced axial 3 mm thick images of the chest were obtained during administra tion of <100> mL Isovue 370 IV contrast. Coronal and oblique reconstruction images were generated and reviewed. Exam utilizes a protocol for optimal evaluation of pulmonary arterial tree. Maximum intensity projections 3D imaging was utilized All CT scans are performed using dose optimization technique as appropriate and may include automated exposure control or mA/KV adjustment according to patient size. FINDINGS: Chest Wall: No suspicious thyroid nodules or pathologic lymphadenopathy. Lungs: No acute abnormality. Emphysema. Pleura: No significant effusions or pneumothorax. Mediastinum/debbie: No pathologic lymphadenopathy. Pulmonary arteries/Aorta: No filling defect identified. No aortic aneurysm. Heart: No significant pericardial effusion. Normal heart size. Upper abdomen: No acute abnormality. Bones: No acute abnormality. IMPRESSION: Negative for pulmonary embolism. No acute findings in the chest.
[2022-12-22] MEDS ORDERED: ONDANSETRON 4 MG/2 ML VIAL IV PRN (19:40)
[2022-12-22] MEDS ORDERED: ALBUTEROL 2.5 MG/3 ML NEB SOL NEB PRN (19:40)
[2022-12-22] MEDS ORDERED: MORPHINE 2 MG/ML SYR IV PRN (19:40)
--- NOTE | 2022-12-22 19:41 | ER ---
Nurse's Notes [facility] Name: Roxanne Duran Age: 52 yrs Sex: Female : 1970 Arrival Date: 12/22/2022 Time: 17:38 Bed 17 Private MD: Diagnosis: COPD/ Chronic obstructive pulmonary disease with (acute) exacerbation;Chest pain on breathing Presentation: 12/22 18:00 Chief complaint: Patient states: PATIENT COMPLAINS OF COUGH X 4 DAYS. COPD EXAC. db Coronavirus screen: Vaccine status: Patient reports being unvaccinated. Client denies travel out of the [place] in the last 14 days. At this time, the client does not indicate any symptoms associated with coronavirus-19. Ebola Screen: Patient negative for fever greater than or equal to 101.5 degrees Fahrenheit, and additional compatible Ebola Virus Disease symptoms Patient denies exposure to infectious person. Patient denies travel to an Ebola-affected area in the 21 days before illness onset. No symptoms or risks identified at this time. Initial Sepsis Screen: Does the patient meet any 2 criteria? No. Patient's initial sepsis screen is negative. Does the patient have a suspected source of infection? No. Patient's initial sepsis screen is negative. Risk Assessment: Do you want to hurt yourself or someone else? Patient reports no desire to harm self or others. Onset of symptoms was December 22, 2022. 18:00 Method Of Arrival: Ambulatory db 18:00 Acuity: SHYLA 2 db Triage Assessment: 18:23 General: Appears distressed, uncomfortable, Behavior is cooperative. Pain: Complains of db pain in chest. Neuro: Level of Consciousness is awake, alert, obeys commands, Oriented to person, place, time, situation. Respiratory: Reports shortness of breath at rest ON O2 Onset: The symptoms/episode began/occurred gradually, the patient has moderate shortness of breath. 18:23 Respiratory: Breath sounds are coarse. 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 - Social history:: Smoking status: Patient/guardian denies using tobacco, but has a distant history of tobacco abuse. Screenin:55 [facility] ED Fall Risk Assessment (Adult) History of falling in the last 3 months, db including since admission No falls in past 3 months (0 pts) Confusion or Disorientation No (0 pts) Intoxicated or Sedated No (0 pts) Impaired Gait No (0 pts) Mobility Assist Device Used Yes (1 pt) Altered Elimination No (0 pt) Score/Fall Risk Level 0 - 2 = Low Risk Oriented to surroundings, Maintained a safe environment. Abuse screen: Denies threats or abuse. Denies injuries from another. Nutritional screening: No deficits noted. Tuberculosis screening: No symptoms or risk factors identified. Assessment: 18:26 Reassessment: Patient appears in no apparent distress at this time. Patient and/or db family updated on plan of care and expected duration. Pain level reassessed. Patient is alert, oriented x 3, equal unlabored respirations, skin warm/dry/pink. FEELS BETTER ON BREATHING TREATMENT. 18:54 Reassessment: PT TO CT. db 19:57 Cardiovascular: Rhythm is regular. Respiratory: Airway is patent Respiratory effort is rv even, unlabored. Vital Signs: 18:00 BP 104 / 67; Pulse 93; Resp 20; Temp 97.9; Pulse Ox 97% on 2 lpm NC; Weight 92.53 kg; db Height 5 ft. 4 in. ; 18:00 BP 108 / 49; Pulse 89; Resp 16; Pulse Ox 100% on 2 lpm NC; db 18:30 BP 94 / 59; Pulse 83; Resp 16; Pulse Ox 100% on 2 lpm NC; db 19:57 BP 117 / 50; Pulse 87; Resp 18; Pulse Ox 100% on 2 lpm NC; rv 18:00 Body Mass Index 35.02 (92.53 kg, 162.56 cm) db ED Course: 17:41 Patient arrived in ED. rg4 17:43 Chica Barrow FNP [facility] jh7 17:43 Gaetano Barnes MD is Attending Physician. 7 17:59 Lucinda Heredia, STEVE is Primary Nurse. db 18:05 Inserted saline lock: 22 gauge in right antecubital area, using aseptic technique. db Blood collected. 18:23 Triage completed. db 18:23 Arm band placed on Patient placed in an exam room. db 18:46 XRAY Chest (1 view) In Process Unspecified. EDMS 18:56 Patient has correct armband on for positive identification. Call light in reach. Side db rails up X 1. Client placed on continuous cardiac and pulse oximetry monitoring. NIBP monitoring applied. Warm blanket given. 19:14 CT Chest For PE Angio In Process Unspecified. EDMS 19:40 Luiz Palacio MD is Hospitalizing Provider. [facility] 19:57 No provider procedures requiring assistance completed. Patient admitted, IV remains in rv place. Administered Medications: 18:15 Drug: DuoNeb Nebulize (2.5 mg - 0.5 mg) 3 ml Nebulizer once Route: Nebulizer; db 20:03 Follow up: Response: No adverse reaction rv 18:17 Drug: Magnesium Sulfate IVPB 1 grams IVPB once over 1 hrs Route: IVPB; Infused Over: 1 db hrs; Site: right antecubital; 20:03 Follow up: IV Status: Completed infusion; IV Intake: 100ml rv 18:18 Drug: MethylPrednisoLONE IVP 125 mg IVP once Route: IVP; Site: right antecubital; db 20:03 Follow up: Response: No adverse reaction rv Medication: 19:57 VIS not applicable for this client. rv Intake: 20:03 IV: 100ml; Total: 100ml. rv Outcome: 19:40 Decision to Hospitalize by Provider. [facility] 20:02 Admitted to Tele accompanied by nurse, via wheelchair, room 411, with chart, Report rv called to maru june 20:02 Condition: good 20:02 Instructed on the need for admit, 20:12 Patient left the ED. rv Signatures: Dispatcher [employer] EDND Jeanne Arriaga rg4 Lenin Roman, RN RN rv Chica Barrow, FITNESS PROFESSIONAL FITNESS PROFESSIONAL 7 Lucinda Heredia, STEVE RN db Corrections: (The following items were deleted from the chart) 19:06 18:00 BP 108 / 49; Pulse 89bpm; Resp 16bpm; Pulse Ox 100% RA; db db 19:06 18:30 BP 94 / 59; Pulse 83bpm; Resp 16bpm; Pulse Ox 100% RA; db db
--- NOTE | 2022-12-22 19:41 | EDPHYS ---
Physician Documentation [facility] Name: Roxanne Duran Age: 52 yrs Sex: Female : 1970 Arrival Date: 12/22/2022 Time: 17:38 Bed 17 Private MD: ED Physician Gaetano Barnes HPI: 12/22 18:00 This 52 yrs old Female presents to ER via Ambulatory with complaints of Cough, jh7 Shortness Of Breath, Chest Pain. 18:00 The patient or guardian reports cough. Onset: The symptoms/episode began/occurred jh7 yesterday. 18:00 52-year-old female presents to the ER complaining of cough, shortness of breath, chest jh7 tightness, and right sided chest pain. Reports that she is currently being treated for a DVT in her left leg with Xarelto. She has a history of COPD and is on 2 L of O2 at home. She reports that she feels like she is having a heart attack. Denies fever.. [employer]: 18:23 LMP N/A - Post-menopause, Not db Historical: - PMHx: 18:23 Anxiety; COPD; DVT Left leg; db - PSHx: 18:23 partial hysterectomy; db - Immunization history:: Adult Immunizations unknown. - Social history:: Smoking status: Patient/guardian denies using tobacco, but has a distant history of tobacco abuse. ROS: 18:00 Respiratory: Positive for cough, orthopnea, shortness of breath, wheezing, jh7 18:00 Constitutional: Negative for fever, chills, and weight loss, Eyes: Negative for injury, jh7 pain, redness, and discharge, ENT: Negative for injury, pain, and discharge, Neck: Negative for injury, pain, and swelling, Abdomen/GI: Negative for abdominal pain, nausea, vomiting, diarrhea, and constipation, Back: Negative for injury and pain, MS/Extremity: Negative for injury and deformity, Skin: Negative for injury, rash, and discoloration, Neuro: Negative for headache, weakness, numbness, tingling, and seizure, 18:00 Cardiovascular: Positive for chest pain, Negative for orthopnea, palpitations, 18:00 All other systems are negative, Exam: 18:00 Constitutional: This is a well developed, well nourished patient who is awake, alert, jh7 and in no acute distress. Head/Face: Normocephalic, atraumatic. Eyes: Pupils equal round and reactive to light, extra-ocular motions intact. Lids and lashes normal. Conjunctiva and sclera are non-icteric and not injected. Cornea within normal limits. Periorbital areas with no swelling, redness, or edema. Neck: Trachea midline, no thyromegaly or masses palpated, and no cervical lymphadenopathy. Supple, full range of motion without nuchal rigidity, or vertebral point tenderness. No Meningismus. Cardiovascular: Regular rate and rhythm with a normal S1 and S2. No gallops, murmurs, or rubs. Normal PMI, no JVD. No pulse deficits. Abdomen/GI: Soft, non-tender, with normal bowel sounds. No distension or tympany. No guarding or rebound. No evidence of tenderness throughout. Back: No spinal tenderness. No costovertebral tenderness. Full range of motion. Skin: Warm, dry with normal turgor. Normal color with no rashes, no lesions, and no evidence of cellulitis. MS/ Extremity: Pulses equal, no cyanosis. Neurovascular intact. Full, normal range of motion. Neuro: Awake and alert, GCS 15, oriented to person, place, time, and situation. Motor strength 5/5 in all extremities. Sensory grossly intact. Normal gait. 18:00 Respiratory: moderate respiratory distress is noted, Respirations: labored breathing, that is mild, Breath sounds: decreased breath sounds, that are moderate, are scattered, wheezing: that is moderate, is scattered, Vital Signs: 18:00 BP 104 / 67; Pulse 93; Resp 20; Temp 97.9; Pulse Ox 97% on 2 lpm NC; Weight 92.53 kg; db Height 5 ft. 4 in. ; 18:00 BP 108 / 49; Pulse 89; Resp 16; Pulse Ox 100% on 2 lpm NC; db 18:30 BP 94 / 59; Pulse 83; Resp 16; Pulse Ox 100% on 2 lpm NC; db 19:57 BP 117 / 50; Pulse 87; Resp 18; Pulse Ox 100% on 2 lpm NC; rv 18:00 Body Mass Index 35.02 (92.53 kg, 162.56 cm) db MDM: 17:43 Patient medically screened. [facility] 19:36 Differential Diagnosis: Bronchitis Influenza Viral Syndrome Pneumonia Other COPD [facility] exacerbation, CHF exacerbation, pulmonary edema, pulmonary embolism, acute AR. Data reviewed: vital signs, nurses notes, lab test result(s), EKG, radiologic studies, CT scan, plain films. Consideration of Admission/Observation Patient was admitted/placed on observation. I considered the following discharge prescriptions or medication management in the emergency department Medications were administered in the Emergency Department. See MAR. Independent interpretation of the following test(s) in the Emergency Department EKG: See my EKG interpretation above. Care significantly affected by the following chronic conditions: Chronic Obstructive Pulmonary Disease. Counseling: I had a detailed discussion with the patient and/or guardian regarding the historical points, exam findings, and any diagnostic results supporting the discharge/admit diagnosis, the need for further work-up and treatment in the hospital. Response to treatment: the patient's symptoms have markedly improved after treatment. 19:40 Management of patient was discussed with the following: Hospitalist: Dr. Palacio. Scoring [facility] Tools HEART Score: Total Score = 3. 12/22 17:50 Order name: Basic Metabolic Panel; Complete Time: 18:41 [facility] 12/22 17:50 Order name: CBC with Diff; Complete Time: 18:36 [facility] 12/22 17:50 Order name: LFT's; Complete Time: 18:41 [facility] 12/22 17:50 Order name: Magnesium; Complete Time: 18:41 [facility] 12/22 17:50 Order name: NT PRO-BNP; Complete Time: 18:41 [facility] 12/22 17:50 Order name: PT-INR; Complete Time: 18:36 [facility] 12/22 17:50 Order name: Troponin HS; Complete Time: 18:41 [facility] 12/22 17:50 Order name: SARS RAPID; Complete Time: 18:48 [facility] 12/22 17:50 Order name: Flu; Complete Time: 18:48 [facility] 12/22 19:45 Order name: CBC with Automated Diff [facility] 12/22 19:45 Order name: CBC with Automated Diff [facility] 12/22 19:45 Order name: Comprehensive Metabolic Panel [facility] 12/22 19:45 Order name: Comprehensive Metabolic Panel [facility] 12/22 19:45 Order name: Lipid Profile [facility] 12/22 19:45 Order name: Lipid Profile [facility] 12/22 19:45 Order name: Troponin High Sensitivity [facility] 12/22 19:45 Order name: Troponin High Sensitivity [facility] 12/22 19:45 Order name: Troponin High Sensitivity [facility] 12/22 19:45 Order name: Troponin High Sensitivity [facility] 12/22 17:50 Order name: XRAY Chest (1 view); Complete Time: 18:59 [facility] 12/22 17:51 Order name: CT Chest For PE Angio; Complete Time: 19:31 [facility] 12/22 17:50 Order name: EKG; Complete Time: 17:51 [facility] 12/22 17:50 Order name: Cardiac monitoring; Complete Time: 18:26 [facility] 12/22 17:50 Order name: EKG - Nurse/Tech; Complete Time: 18:26 [facility] 12/22 17:50 Order name: IV Saline Lock; Complete Time: 18:26 [facility] 12/22 17:50 Order name: Labs collected and sent; Complete Time: 18:26 [facility] 12/22 17:50 Order name: O2 Per Protocol; Complete Time: 18:26 [facility] 12/22 17:50 Order name: O2 Sat Monitoring; Complete Time: 18:26 [facility] EC:53 Rate is 95 beats/min. Rhythm is regular. QRS [place] is Normal. [place] interval is normal at [facility] 128 msec. QRS interval is normal at 74 msec. QT interval is normal at 342 msec. No Q waves. T waves are Normal. No ST changes noted. Clinical impression: Normal sinus rhythm. Administered Medications: 18:15 Drug: DuoNeb Nebulize (2.5 mg - 0.5 mg) 3 ml Nebulizer once Route: Nebulizer; db 20:03 Follow up: Response: No adverse reaction rv 18:17 Drug: Magnesium Sulfate IVPB 1 grams IVPB once over 1 hrs Route: IVPB; Infused Over: 1 db hrs; Site: right antecubital; 20:03 Follow up: IV Status: Completed infusion; IV Intake: 100ml rv 18:18 Drug: MethylPrednisoLONE IVP 125 mg IVP once Route: IVP; Site: right antecubital; db 20:03 Follow up: Response: No adverse reaction rv Disposition: 12/23 08:08 Co-signature as Attending Physician, Gaetano Barnes MD I reviewed the patient's care rn provided by the Advanced Practice Provider and agree with the diagnosis and treatment plan. Disposition Summary: 12/22/22 19:40 Hospitalization Ordered Notes: Hospitalization Status: Inpatient Admission [facility] Provider: Luiz Palacio [facility] Location: Telemetry/MedSurg (Inpatient) [facility] Condition: Stable [facility] Problem: chronic 7 Symptoms: have improved [facility] Bed/Room Type: Standard [facility] Room Assignment: 411(12/22/22 19:55) mw Diagnosis - COPD/ Chronic obstructive pulmonary disease with (acute) exacerbation [facility] - Chest pain on breathing [facility] Forms: - Medication Reconciliation Form 7 - SBAR form [facility] - Leadership Thank You Letter [facility] Signatures: Dispatcher [employer] EDMS Mary Beth Sidhu RN RN mw Gaetano Barnes MD MD rn Hadash, Jennifer, FNP [employer] [facility] Lucinda Heredia RN RN Lenin Mckeon RN Corrections: (The following items were deleted from the chart) 12/22 18:56 18:00 Associated signs and symptoms: Pertinent positives: earache, rhinorrhea, sore [facility] throat, Pertinent negatives: chest pain, diarrhea, jh7 18:57 18:00 Respiratory: Positive for cough, jh7 7 19:38 18:00 This 52 yrs old Female presents to ER via Ambulatory with complaints of Cough, jh7 Shortness Of Breath, Chest Tightness. 7 19:38 18:00 52-year-old female presents to the ER complaining of cough, shortness of breath, jh7 chest tightness, and rib pain. Reports that she is currently being treated for a DVT in her left leg with Xarelto. She has a history of COPD and is on 2 L of O2 at home. Denies fever.. 7 19:55 19:40 7 mw
--- NOTE | 2022-12-22 19:48 | P.HP ---
Certification for Inpatient Patient admitted to: Inpatient With expected LOS: >2 Midnights Patient will require the following post-hospital care: None Practitioner: I am a practitioner with admitting privileges, knowledge of patient current condition, hospital course, and medical plan of care. Services: Services provided to patient in accordance with Admission requirements found in Title 42 Section 412.3 of the Code of Federal Regulations Patient History Date of Service: 12/22/22 Reason for admission: SOB History of Present Illness: 52 yrs old Female with past medical history of anxiety, COPD, DVT left leg and partial hysterectomy who started having shortness of breath and chest pain and associated with cough which has been going on for the last 2 days and has been progressively worsening and was brought to ER. Patient complains of tightness in the chest and pain in right side of the chest. It is sharp. Worse with cough. Cough is productive with mucoid expectoration. No fever or chills. No nausea vomiting or diarrhea. She has been taking Xarelto for DVT and has history of COPD on 2 L nasal cannula at home. Patient states that she thinks that she has heart attack and has been very anxious which caused shortness of breath and had hypoxia and had to be placed on 4 L nasal cannula. Patient was assessed in the ER and was admitted for further management of chest pain to rule out ACS and COPD exacerbation Allergies No Known Drug Allergies Allergy (Verified 11/17/21 22:34) Unknown No Known Allergies Allergy (Uncoded 12/25/19 22:10) Unknown Home medications list reviewed: Yes Home Medications: Fluticasone/Umeclidin/Vilanter [Trelegy Ellipta 100-62.5-25] 1 puff PO DAILY 02/02/21 Albuterol Neb [Proventil 0.083% Neb Soln] 2.5 mg NEB Q6HP PRN #120 amp 02/06/21 Albuterol Sulfate [Proair Hfa] 2 puff IH Q4H 07/14/21 Ipratropium Neb [Atrovent*] 0.5 mg NEB [id number] PRN 07/14/21 Rivaroxaban [Xarelto] 10 mg PO DAILY 11/17/21 Fluoxetine HCl [Prozac] 60 mg PO DAILY 12/22/22 Montelukast [Singulair*] 1 tab PO DAILY 12/22/22 predniSONE [Prednisone*] 10 mg PO DAILY 12/22/22 - Past Medical/Surgical History Diabetic: No Past Medical History: Reviewed- Non-Contributory -: COPD-home O2/steroids -: ANXIETY -: DVT Past Surgical History: Reviewed- Non-Contributory -: HYSTERECTOMY -: cataract surgery R eye Psychosocial/ Personal History: Patient lives at home with her children is currently unemployed - Family History Family History: Reviewed- Non-Contributory - Family History Mother -: Lung disease, Other (see notes) Notes: OXYGEN DEPENDENT, SMOKER. depresssion Father -: Lung disease, GI disease, Kidney disease Notes: SMOKER - Social History Smoking Status: Former smoker Alcohol use: No CD- Drugs: No Caffeine use: Yes Review of Systems 10-point ROS is otherwise unremarkable General: Weakness Eyes: Unremarkable ENT: Nose Congestion, Unremarkable Respiratory: Cough, Shortness of Breath, SOB with Excertion, Pleuritic Pain Cardiovascular: Chest Pain, Unremarkable Gastrointestinal: Unremarkable Genitourinary: Unremarkable Musculoskeletal: Unremarkable Neurological: Unremarkable Physical Examination - Vital Signs Temperature: 98.6 F Blood Pressure: 142/86 Pulse: 78 Respirations: 20 Pulse Ox (%): 98 - Physical Exam General: Alert, Oriented x3, Mild distress HEENT: Atraumatic, Normocephalic Neck: Supple Respiratory: Diminished, Crackles/rales, Expiratory wheezes Cardiovascular: Normal pulses, Regular rate/rhythm, Normal S1 S2 Gastrointestinal: Normal bowel sounds, Soft and benign, W/out hepatosplenomegaly Musculoskeletal: No clubbing, No swelling Integumentary: No rashes Neurological: Normal speech, Normal strength at 5/5 x4 extr, Sensation intact, Cranial nerves 3-12 intact, Other (Anxious ) Lymphatics: No axilla or inguinal lymphadenopathy - Studies Laboratory Data (last 24 hrs) 12/22/22 12/22/22 12/22/22 18:05 18:05 18:05 WBC 11.70 H Hgb 13.7 Hct 41.4 Plt Count 205 PT 11.0 INR 1.00 Sodium 140 Potassium 3.7 BUN 25 H Creatinine 1.16 H Glucose 117 H Magnesium 2.2 Total Bilirubin 0.4 AST 11 L ALT 15 Alkaline Phosphatase 80 Microbiology Data (last 24 hrs): 12/22/22 18:14 Nasopharnyx Influenza Type A Antigen Screen - Final 12/22/22 18:14 Nasopharnyx Influenza Type B Antigen Screen - Final Assessment and Plan - Problems (Diagnosis) (1) Chest pain Current Visit: Yes Status: Acute Plan: Chest pain rule out ACS We will trend cardiac enzymes Monitor closely on telemetry. We will get an echocardiogram Cardiology consult if troponins are elevated EKG and initial troponin was negative (2) Acute on chronic respiratory failure with hypoxia Current Visit: No Status: Acute Plan: Possibly due to COPD exacerbation Oxygen supplementation We will try to wean down oxygen requirement (3) COPD exacerbation Onset Date: 05/20/17 Current Visit: No Status: Acute Plan: Started bronchodilators Continue oxygen supplementation We will start on steroids Antitussives (4) H/O deep venous thrombosis Current Visit: Yes Status: Chronic Plan: Continue anticoagulation Monitor closely for any acute changes CTA negative for any pulmonary embolism (5) Anxiety disorder Current Visit: No Status: Chronic Plan: Continue home medications and titrate as needed Qualifiers: 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
[2022-12-22] MEDS: IPRATROPIUM BROM 0.5MG/2.5ML NEB SCH (20:00)
[2022-12-22 20:27] VITALS: BMI 35.0
[2022-12-22] MEDS ORDERED: guaiFENesin 100 MG/5 ML UCUP PO PRN (20:50)
[2022-12-22] MEDS: ALPRAZOLAM 0.25 MG TABLET PO PRN (20:54)
[2022-12-22] MEDS: ACETAMINOPHEN 500 MG TAB PO PRN (20:54)
[2022-12-22] MEDS ORDERED: Levofloxacin 750mg IV 750 MG/150 ML BAG IV SCH ×2 (21:00)
[2022-12-22] MEDS: BENZONATATE 100 MG CAP PO PRN (21:06)
[2022-12-22] MEDS: METHYLPREDNISOLONE 125 MG INJ IV SCH (23:30)
[2022-12-23] MEDS: ALPRAZOLAM 0.25 MG TABLET PO PRN ×2 (02:26→08:57)
[2022-12-23] MEDS: IPRATROPIUM BROM 0.5MG/2.5ML NEB SCH ×4 (03:20→20:15)
[2022-12-23 03:58] LABS: Absolute Lymphocytes (CBC) 0.8 K/uL (0.7-4.9); Hematocrit 39.9 % (36.0-45.0); MCV 95.3 fL (80-100); MPV 7.3 fL (7.6-11.3); Platelets 187 thou/uL (152-406); RBC Red Blood Cell Count 4.19 M/uL (3.86-4.86)
[2022-12-23 04:45] LABS: Albumin 2.9 g/dL (3.4-5.0); Bilirubin Total 0.2 mg/dL (0.2-1.0); Potassium 4.6 mEq/L (3.5-5.1); Protein, Total 6.4 g/dL (6.4-8.2)
[2022-12-23] MEDS: METHYLPREDNISOLONE 125 MG INJ IV SCH ×3 (05:49→17:11)
--- NOTE | 2022-12-23 08:24 | P.PN ---
Subjective Date of Service: 12/23/22 Chief Complaint: SOB Reports some improvement, sees Dr. Barrera for pulmonary, reports yearly admission for COPD exacerbation/pneumonia, no reported tobacco use <Carley Dominique - Last Filed: 12/23/22 10:00> Date of Service: 12/23/22 <Tevin Vail - Last Filed: 12/23/22 22:25> Review of Systems 10-point ROS is otherwise unremarkable <Carley Dominique - Last Filed: 12/23/22 10:00> Physical Examination - Vital Signs Temperature: 97.3 F Blood Pressure: 126/71 Pulse: 80 Respirations: 16 Pulse Ox (%): 96 - Physical Exam General: Alert, Oriented x3, Mild distress HEENT: Atraumatic, Normocephalic Neck: Supple, 2+ carotid pulse no bruit Respiratory: Expiratory wheezes, Inspiratory wheezes Cardiovascular: Normal pulses, Regular rate/rhythm, Normal S1 S2 Capillary refill: <2 Seconds Gastrointestinal: Normal bowel sounds, Soft and benign Musculoskeletal: No clubbing, No swelling Integumentary: No rashes, No breakdown Neurological: Normal speech, Normal strength at 5/5 x4 extr - Studies Laboratory Data (last 24 hrs) 12/22/22 12/22/22 12/22/22 18:05 18:05 18:05 WBC 11.70 H Hgb 13.7 Hct 41.4 Plt Count 205 PT 11.0 INR 1.00 Sodium 140 Potassium 3.7 BUN 25 H Creatinine 1.16 H Glucose 117 H Magnesium 2.2 Total Bilirubin 0.4 AST 11 L ALT 15 Alkaline Phosphatase 80 Microbiology Data (last 24 hrs): 12/22/22 18:14 Nasopharnyx Influenza Type A Antigen Screen - Final 12/22/22 18:14 Nasopharnyx Influenza Type B Antigen Screen - Final <Carley Dominique - Last Filed: 12/23/22 10:00> - Studies Microbiology Data (last 24 hrs): 12/22/22 18:14 Nasopharnyx Influenza Type A Antigen Screen - Final 12/22/22 18:14 Nasopharnyx Influenza Type B Antigen Screen - Final <Tevin Vail - Last Filed: 12/23/22 22:25> Assessment And Plan - Plan - Problems (Diagnosis) (1) pleuritic chest pain Current Visit: Yes Status: Acute Plan: Chest pain rule out ACS We will trend cardiac enzymes Monitor closely on telemetry. We will get an echocardiogram Cardiology consult if troponins are elevated EKG and initial troponin was negative [place] 5 as needed (2) Acute on chronic respiratory failure with hypoxia Current Visit: No Status: Acute Plan: Possibly due to COPD exacerbation Oxygen supplementation We will try to wean down oxygen requirement Pulmonary consult duo nebs, budesonide, Lovenox (3) COPD exacerbation Onset Date: 05/20/17 Current Visit: No Status: Acute Plan: Started bronchodilators Continue oxygen supplementation We will start on steroids Antitussives (4) H/O deep venous thrombosis Current Visit: Yes Status: Chronic Plan: Continue anticoagulation Monitor closely for any acute changes CTA negative for any pulmonary embolism On Xarelto (5) Anxiety disorder Current Visit: No Status: Chronic Plan: Continue home medications and titrate as needed Qualifiers: 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 I agree with plan of care as mentioned above. We will go ahead and start taking patient off of some of these medications as patient does not have any infiltrates on chest x-ray so I do not think she needs antibiotics. She does not need IV fluids. Decrease her IV steroids. We will limit her pain medication to 1 medication and anxiolytic to 1 medication. Patient has home oxygen already. We will go ahead and proceed with discharge planning. <Tevin Vail - Last Filed: 12/23/22 22:25>
[2022-12-23] MEDS: BENZONATATE 100 MG CAP PO PRN (08:57)
[2022-12-23] MEDS: NA CHLORIDE 0.9% 1,000 ML IV SCH ×2 (08:57→17:14)
[2022-12-23] MEDS ORDERED: LORAZEPAM 0.5 MG TABLET PO PRN (09:05)
[2022-12-23] MEDS: BUDESONIDE 0.5 MG/2 ML NEB NEB SCH ×2 (09:05→20:15)
[2022-12-23] MEDS: HYDROCODONE/APAP 5/325 MG TAB PO PRN ×2 (09:49→17:10)
[2022-12-23] MEDS: FLUOXETINE 20 MG CAP PO SCH (12:16)
[2022-12-23] MEDS: RIVAROXABAN 10 MG TABLET PO SCH (17:11)
[2022-12-23] MEDS ORDERED: clonazePAM 1 MG TAB PO ONE (22:16)
[2022-12-23] MEDS ORDERED: BENZONATATE 100 MG CAP PO PRN (22:23)
[2022-12-23] MEDS: FENTANYL CITR 100 MCG/2 ML IV PRN (23:27)
[2022-12-23] MEDS: METHYLPREDNISOLONE 40 MG INJ IV SCH (23:30)
[2022-12-24] MEDS: FENTANYL CITR 100 MCG/2 ML IV PRN (06:21)
[2022-12-24] MEDS: METHYLPREDNISOLONE 40 MG INJ IV SCH ×3 (06:21→20:48)
[2022-12-24] MEDS: BUDESONIDE 0.5 MG/2 ML NEB NEB SCH (07:55)
[2022-12-24] MEDS ORDERED: ARFORMOTEROL TARTRATE 15 MCG/2 ML VIAL.NEB NEB SCH (08:00)
[2022-12-24] MEDS ORDERED: IPRATROPIUM BROM 0.5MG/2.5ML NEB SCH (08:00)
--- NOTE | 2022-12-24 08:24 | P.CNS ---
Date of Consult: 12/24/22 Reason for Consult: COPD exacerbation Chief Complaint: SOB History of Present Illness: Patient is 52 years of age with a history of COPD has been sick for the past week complaining of fever cough shortness of breath uses trilogy and prednisone at home feeling a little better patient's been compliant with the therapy Allergies No Known Drug Allergies Allergy (Verified 11/17/21 22:34) Unknown No Known Allergies Allergy (Uncoded 12/25/19 22:10) Unknown Home Medications: Fluticasone/Umeclidin/Vilanter [Trelegy Ellipta 100-62.5-25] 1 puff PO DAILY 02/02/21 Albuterol Neb [Proventil 0.083% Neb Soln] 2.5 mg NEB Q6HP PRN #120 amp 02/06/21 Albuterol Sulfate [Proair Hfa] 2 puff IH Q4H 07/14/21 Ipratropium Neb [Atrovent*] 0.5 mg NEB [id number] PRN 07/14/21 Rivaroxaban [Xarelto] 10 mg PO DAILY 11/17/21 Fluoxetine HCl [Prozac] 60 mg PO DAILY 12/22/22 Montelukast [Singulair*] 1 tab PO DAILY 12/22/22 Albuterol Neb [Proventil 0.083% Neb Soln] 2.5 mg NEB Q6HP PRN #60 amp 12/23/22 Arformoterol Tartrate [Brovana] 15 mcg NEB BIDRESP #60 vial.neb 12/23/22 Benzonatate [Tessalon Perle*] 200 mg PO TID PRN #30 cap 12/23/22 Budesonide [Pulmicort*] 0.5 mg NEB BIDRESP #60 amp 12/23/22 Guaifen W/Codeine Syrup [ROBITUSSIN A-C Syrup*] 10 ml PO BID PRN #100 ml 12/23/22 Hydrocodone 5/APAP 325 [Redfox 5/325*] 1 tab PO Q6H PRN #30 tab 12/23/22 Ipratropium Neb [Atrovent*] 0.5 mg NEB [id number] #60 amp 12/23/22 predniSONE [Prednisone*] 20 mg PO BID #30 tab 12/23/22 - Past Medical/Surgical History Diabetic: No -: COPD-home O2/steroids -: ANXIETY -: DVT -: HYSTERECTOMY -: cataract surgery R eye Psychosocial/ Personal History: Patient lives at home with her children is currently unemployed - Family History Mother Medical History: Lung disease, Other (see notes) Notes: OXYGEN DEPENDENT, SMOKER. depresssion Father Medical History: Lung disease, GI disease, Kidney disease Notes: SMOKER - Social History Smoking Status: Former smoker Alcohol use: No CD- Drugs: No Caffeine use: Yes Place of Residence: Home Review of Systems 10-point ROS is otherwise unremarkable General: Malaise Respiratory: Cough, Shortness of Breath Physical Examination Temp Pulse Resp BP Pulse Ox 96.9 F 90 18 130/68 97 12/24/22 04:00 12/24/22 04:00 12/24/22 04:00 12/24/22 04:00 12/24/22 04:00 General: Alert, In no apparent distress, Oriented x3 Respiratory: Clear to auscultation bilaterally, Diminished Cardiovascular: No edema, Normal pulses, Regular rate/rhythm, Normal S1 S2 Gastrointestinal: Normal bowel sounds, Soft and benign, Non-distended - Problems (1) COPD exacerbation Onset Date: 05/20/17 Current Visit: No Status: Acute Plan: Patient is 52 years of age admitted with COPD exacerbation she is currently compliant with all her medications renal function is slightly worse chest x-ray is clear chemistries reviewed white count is now normal changed to p.o. levofloxacin reduce dose of Solu-Medrol vital signs all stable possible discharge today or tomorrow ambulate
--- NOTE | 2022-12-24 08:53 | P.PN ---
Subjective Date of Service: 12/24/22 Chief Complaint: SOB Subjective: No new changes Physical Examination - Vital Signs Temperature: 96.9 F Blood Pressure: 130/68 Pulse: 90 Respirations: 18 Pulse Ox (%): 97 - Physical Exam General: Alert, Oriented x3 HEENT: Atraumatic, Normocephalic Neck: Supple Respiratory: Diminished Cardiovascular: Regular rate/rhythm, Normal S1 S2 Gastrointestinal: Soft and benign Musculoskeletal: No swelling Neurological: Normal speech, Normal strength at 5/5 x4 extr Assessment And Plan - Plan COPD exacerbation: Still has significant issues with resp distress. steroids and inhalational therapy to be continued. we will follow pulmonology plans. we will continue antibiotic therapy. Anxiety: we will continue prn anxiolytics. Hypertension: we will monitor vitals per unit protocol and continue antihypertensive medications. Hx of DVT: we will continue oral anticoagulation. Prophylaxis:Lovenox for DVT. Disposition: possible dc in next 48hrs. Discharge Plan: Home Physician Review: Patient Assessed, Agree with Above Assessment and Plan
[2022-12-24] MEDS: levoFLOXacin 750 MG TAB PO SCH (09:09)
[2022-12-24] MEDS: clonazePAM 0.5 MG TAB PO SCH ×3 (09:09→20:48)
[2022-12-24] MEDS: FLUOXETINE 20 MG CAP PO SCH (09:09)
[2022-12-24] MEDS: IPRATROPIUM BROM 0.5MG/2.5ML NEB SCH ×2 (14:15→19:57)
[2022-12-24] MEDS: RIVAROXABAN 10 MG TABLET PO SCH (16:39)
[2022-12-24] MEDS: GUAIFENESIN/CODEINE 5ML UCUP PO PRN (20:49)
[2022-12-25] MEDS: FENTANYL CITR 100 MCG/2 ML IV PRN ×2 (00:38→10:34)
[2022-12-25] MEDS: IPRATROPIUM BROM 0.5MG/2.5ML NEB SCH ×4 (01:01→19:50)
[2022-12-25] MEDS: ACETAMINOPHEN 500 MG TAB PO PRN (05:54)
[2022-12-25] MEDS: levoFLOXacin 750 MG TAB PO SCH (08:46)
[2022-12-25] MEDS: clonazePAM 0.5 MG TAB PO SCH ×3 (08:47→20:11)
[2022-12-25] MEDS: FLUOXETINE 20 MG CAP PO SCH (08:47)
[2022-12-25] MEDS: METHYLPREDNISOLONE 40 MG INJ IV SCH (08:47)
[2022-12-25] MEDS: GUAIFENESIN/CODEINE 5ML UCUP PO PRN (08:51)
[2022-12-25] MEDS ORDERED: ALBUTEROL 2.5 MG/3 ML NEB SOL NEB PRN (12:00)
[2022-12-25] MEDS ORDERED: HYDROCODONE/CHLORPHEN 5 ML/OSYR PO PRN (12:06)
--- NOTE | 2022-12-25 12:09 | P.PN ---
Subjective Date of Service: 12/25/22 Chief Complaint: SOB No change patient still complaining of shortness of breath and cough and chest discomfort Review of Systems General: Weakness Respiratory: Cough, Shortness of Breath Cardiovascular: Chest Pain Physical Examination - Vital Signs Temperature: 98.0 F Blood Pressure: 116/62 Pulse: 81 Respirations: 16 Pulse Ox (%): 98 - Physical Exam General: Alert, Moderate distress Respiratory: Clear to auscultation bilaterally, Expiratory wheezes Cardiovascular: No edema, Regular rate/rhythm Gastrointestinal: Normal bowel sounds, Soft and benign Assessment And Plan - Current Problems (Diagnosis) (1) COPD exacerbation Onset Date: 05/20/17 Current Visit: No Status: Acute Plan: Patient is 52 years of age admitted with COPD exacerbation is not feeling any better complaining of cough congestion chest pain count is now normal renal function is slightly worse signs oxygenation satisfactory h changed to p.o. prednisone Tussionex for cough suppression no acute changes on CT scan we will add Angeliresp Physician Review: Patient Assessed, Agree with Above Assessment and Plan
[2022-12-25] MEDS: ROFLUMILAST 500 MCG TABLET PO SCH (12:11)
--- NOTE | 2022-12-25 14:00 | RAD REPORT ---
EXAM DESCRIPTION: RAD - Chest Single View - 12/25/2022 1:31 pm CLINICAL HISTORY: chest pain Chest pain. COMPARISON: Chest Single View dated 12/22/2022; Chest Single View dated 05/05/2022; Chest Single View dated 11/17/2021; Chest Single View dated 07/15/2021 FINDINGS: Portable technique limits examination quality. Mild pulmonary edema is seen. The heart is mildly enlarged. No displaced fractures. IMPRESSION: Mild CHF.
[2022-12-25] MEDS: RIVAROXABAN 10 MG TABLET PO SCH (17:24)
[2022-12-25] MEDS: predniSONE 20 MG TAB PO SCH (20:11)
[2022-12-26] MEDS: IPRATROPIUM BROM 0.5MG/2.5ML NEB SCH ×3 (02:25→13:35)
[2022-12-26] MEDS: ACETAMINOPHEN 500 MG TAB PO PRN ×2 (02:52→14:18)
[2022-12-26 08:07] VITALS: BP 110/66; TEMP 97.9
[2022-12-26] MEDS: predniSONE 20 MG TAB PO SCH (09:51)
[2022-12-26] MEDS: levoFLOXacin 750 MG TAB PO SCH (09:51)
[2022-12-26] MEDS: clonazePAM 0.5 MG TAB PO SCH (09:51)
[2022-12-26] MEDS: FLUOXETINE 20 MG CAP PO SCH (09:51)
--- NOTE | 2022-12-26 11:47 | P.PN ---
Subjective Date of Service: 12/25/22 Chief Complaint: SOB Subjective: No new changes, Improving Physical Examination - Vital Signs Temperature: 97.9 F Blood Pressure: 110/66 Pulse: 72 Respirations: 18 Pulse Ox (%): 97 - Physical Exam General: Alert, Oriented x3 HEENT: Atraumatic Neck: Supple Respiratory: Diminished Cardiovascular: Regular rate/rhythm, Normal S1 S2 Gastrointestinal: Soft and benign Musculoskeletal: No swelling Neurological: Normal speech Assessment And Plan - Plan COPD exacerbation: Still has significant issues with resp distress. steroids and inhalational therapy to be continued. we will follow pulmonology plans. we will continue antibiotic therapy. Anxiety: we will continue prn anxiolytics. Hypertension: we will monitor vitals per unit protocol and continue antihypertensive medications. Hx of DVT: we will continue oral anticoagulation. Prophylaxis:Lovenox for DVT. Disposition: possible dc in next 48hrs. Physician Review: Patient Assessed, Agree with Above Assessment and Plan
--- NOTE | 2022-12-26 11:53 | P.DS ---
Admission Date: 12/22/22 Discharge Date: 12/26/22 Disposition: ROUTINE DISCHARGE Discharge Condition: GOOD Reason for Admission: SOB Brief History of Present Illness: 52 yrs old Female with past medical history of anxiety, COPD, DVT left leg and partial hysterectomy who started having shortness of breath and chest pain and associated with cough which has been going on for the last 2 days and has been progressively worsening and was brought to ER. Patient complains of tightness in the chest and pain in right side of the chest. It is sharp. Worse with cough. Cough is productive with mucoid expectoration. No fever or chills. No nausea vomiting or diarrhea. She has been taking Xarelto for DVT and has history of COPD on 2 L nasal cannula at home. Patient states that she thinks that she has heart attack and has been very anxious which caused shortness of breath and had hypoxia and had to be placed on 4 L nasal cannula. Patient was assessed in the ER and was admitted for further management of chest pain to rule out ACS and COPD exacerbation. Hospital Course: She initially had a rough initial for couple of days with significant COPD exacerbation and she had required significant steroid therapy to assist with improvement in COPD exacerbation. She was continued on IV antibiotic therapy and had breathing treatments administered. She improved significantly over the course of hospital stay with stepdown of steroid therapy in the last 24 hours. She was deemed stable for discharge to complete oral course of Levaquin and anxiolytic medication/mucolytic's and antitussives. She will follow-up with pulmonary physician as scheduled and also with her primary care doctor. Vital Signs/Physical Exam: Temp Pulse Resp BP Pulse Ox 97.9 F 72 18 110/66 97 12/26/22 11:47 12/26/22 11:47 12/26/22 11:47 12/26/22 11:47 12/26/22 11:47 General: Alert, Oriented x3 HEENT: Atraumatic Neck: Supple Respiratory: Normal air movement Cardiovascular: Regular rate/rhythm, Normal S1 S2 Gastrointestinal: Soft and benign Musculoskeletal: No swelling Neurological: Normal speech Laboratory Data at Discharge: WBC 8.30 thou/uL (4.3-10.9) 12/23/22 03:29 Hgb 13.3 g/dL (12.0-15.0) 12/23/22 03:29 Hct 39.9 % (36.0-45.0) 12/23/22 03:29 Plt Count 187 thou/uL (152-406) 12/23/22 03:29 PT 11.0 SECONDS (9.5-12.5) 12/22/22 18:05 INR 1.00 12/22/22 18:05 Sodium 137 mEq/L (136-145) 12/23/22 03:29 Potassium 4.6 mEq/L (3.5-5.1) D 12/23/22 03:29 BUN 31 mg/dL (7-18) H 12/23/22 03:29 Creatinine 1.35 mg/dL (0.55-1.02) H 12/23/22 03:29 Glucose 202 mg/dL (74-106) H 12/23/22 03:29 Magnesium 2.2 mg/dL (1.6-2.4) 12/22/22 18:05 Total Bilirubin 0.2 mg/dL (0.2-1.0) 12/23/22 03:29 AST 10 U/L (15-37) L 12/23/22 03:29 ALT 17 U/L (13-56) 12/23/22 03:29 Alkaline Phosphatase 81 U/L (45-117) 12/23/22 03:29 Triglycerides 211 mg/dL (<150) H 12/23/22 03:29 Cholesterol 253 mg/dL (<200) H 12/23/22 03:29 HDL Cholesterol 95 mg/dL (40-60) H 12/23/22 03:29 Cholesterol/HDL Ratio 2.66 12/23/22 03:29 Home Medications: Fluticasone/Umeclidin/Vilanter [Trelegy Ellipta 100-62.5-25] 1 puff PO DAILY 02/02/21 Albuterol Neb [Proventil 0.083% Neb Soln] 2.5 mg NEB Q6HP PRN #120 amp 02/06/21 Albuterol Sulfate [Proair Hfa] 2 puff IH Q4H 07/14/21 Ipratropium Neb [Atrovent*] 0.5 mg NEB [id number] PRN 07/14/21 Rivaroxaban [Xarelto] 10 mg PO DAILY 11/17/21 Fluoxetine HCl [Prozac] 60 mg PO DAILY 12/22/22 Montelukast [Singulair*] 1 tab PO DAILY 12/22/22 Albuterol Neb [Proventil 0.083% Neb Soln] 2.5 mg NEB Q6HP PRN #60 amp 12/23/22 Benzonatate [Tessalon Perle*] 200 mg PO TID PRN #30 cap 12/23/22 Guaifen W/Codeine Syrup [ROBITUSSIN A-C Syrup*] 10 ml PO BID PRN #100 ml 12/23/22 Hydrocodone 5/APAP 325 [[place] 5/325*] 1 tab PO Q6H PRN #30 tab 12/23/22 Ipratropium Neb [Atrovent*] 0.5 mg NEB [id number] #60 amp 12/23/22 Roflumilast [Daliresp*] 500 mcg PO DAILY #30 12/26/22 guaiFENesin [Robitussin 100MG/5ML*] 5 ml PO QID PRN #100 ml 12/26/22 levoFLOXacin [Levaquin*] 750 mg PO DAILY #5 tab 12/26/22 predniSONE [Prednisone*] 20 mg PO DAILY #7 tab 12/26/22 New Medications: Ipratropium Neb [Atrovent*] 0.5 mg NEB [id number] #60 amp Roflumilast [Daliresp*] 500 mcg PO DAILY #30 levoFLOXacin [Levaquin*] 750 mg PO DAILY #5 tab Hydrocodone 5/APAP 325 [[place] 5/325*] 1 tab PO Q6H PRN #30 tab PRN Reason: Pain Scale 5-7 (Moderate) predniSONE [Prednisone*] 20 mg PO DAILY #7 tab Albuterol Neb [Proventil 0.083% Neb Soln] 2.5 mg NEB Q6HP PRN #60 amp PRN Reason: Shortness Of Breath guaiFENesin [Robitussin 100MG/5ML*] 5 ml PO QID PRN #100 ml PRN Reason: Cough Guaifen W/Codeine Syrup [ROBITUSSIN A-C Syrup*] 10 ml PO BID PRN #100 ml PRN Reason: Cough Benzonatate [Tessalon Perle*] 200 mg PO TID PRN #30 cap PRN Reason: Cough Physician Discharge Instructions: OK TO DC IV AND DC HOME FOLLOW-UP WITH PRIMARY CARE PROVIDER IN 1-2 WEEKS FOLLOW-UP WITH Pulmonary IN 1-2 WEEKS RETURN TO THE ER IF symptoms worsens CALL DR. SOLIS AT [phone] IF ANY QUESTIONS REGARDING HOSPITAL STAY. PLEASE CALL THE FLOOR AT [phone] IF ANY MEDICATION OR NURSING QUESTIONS. Diet: Low sodium Activity: Fall precautions
--- NOTE | 2022-12-26 12:09 | P.PN ---
Subjective Date of Service: 12/26/22 Chief Complaint: COPD exacerbation Patient still has some chest discomfort doing better Review of Systems General: Weakness Respiratory: Cough, Shortness of Breath Physical Examination - Vital Signs Temperature: 97.9 F Blood Pressure: 110/66 Pulse: 72 Respirations: 18 Pulse Ox (%): 97 - Physical Exam General: Alert, Oriented x3 Respiratory: Diminished Cardiovascular: No edema, Normal pulses Assessment And Plan - Current Problems (Diagnosis) (1) COPD exacerbation Onset Date: 05/20/17 Current Visit: No Status: Acute Plan: Patient admitted with COPD exacerbation still complaining some chest discomfort chest x-ray no significant change hyperinflation with interstitial changes influenza a and B- negative Physician Review: Patient Assessed, Agree with Above Assessment and Plan
[2022-12-26 12:10] VITALS: O2SAT 93
[2022-12-26] MEDS: ROFLUMILAST 500 MCG TABLET PO SCH (14:20)
== END 2022-12-26 16:09 | disposition home or self-care (01) | DRG 190 ==
LOC: ER 17:38 → 4TH 19:41
PROVIDERS: ADMIT Family Medicine; ATTEND Internal Medicine Nephrology
DX: J44.1 Chronic obstructive pulmonary disease with (acute) exacerbation (principal); J96.21 Acute and chronic respiratory failure with hypoxia; I10 Essential (primary) hypertension; F40.01 Agoraphobia with panic disorder; Z56.0 Unemployment, unspecified; Z11.52 Encounter for screening for COVID-19; Z79.52 Long term (current) use of systemic steroids; Z79.01 Long term (current) use of anticoagulants; Z99.81 Dependence on supplemental oxygen; Z86.718 Personal history of other venous thrombosis and embolism; Z90.711 Acquired absence of uterus with remaining cervical stump; Z79.899 Other long term (current) drug therapy; Z87.891 Personal history of nicotine dependence
CPT/HCPCS: 36415; 71045; 71275; 80048; 80053; 80061; 80076; 83735; 83880; 84484; 85025; 85610; 87804; 87811; 93005; 94640; 94760; 96365; 96366; 96375; 99285; J2270; J2920; J2930; J3010; J3475; J7030; J7512; J7605; J7613; J7626; J7644; Q9967

== ENCOUNTER 2023-01-20 19:18 | Emergency (ER) | payer OTHER ==
--- OUTSIDE RECORDS SUMMARY | 2023-01-20 19:27 | XMS REPORT | Continuity of Care Document ---
:1970 Author Organization [facility] [place] [facility] t Address [address] [place] [address] [address] [place] [address] Care Team Providers Name Role Phone Colton Sarabia Primary Care Physician MECHE LAM Attending Clinician Unavailable Meche Lam MD Attending Clinician Doctor Unassigned, [place] Attending Clinician Unavailable Bradley Elliott MD Attending Clinician Meche Lechuga MD Attending Clinician Only, Adc Test Attending Clinician Unavailable Pob, Ad[facility] Lab Main Attending Clinician Unavailable Jn Barrios Attending Clinician Unavailable MECHE LAM Admitting Clinician Unavailable Meche Lam MD Admitting Clinician Jn Barrios Admitting Clinician Unavailable Payers Payer Name Policy Type Policy Number Effective Date Expiration Date S cintia [facility] [place] STAR [id number] 2020 00:00:00 GREER/[facility] DUAL [id number] 2022 00:00:00 COMP HMO D SNP Problems Condition Condition Condition Status Onset Resolution Last Treating Co mments Source Name Details Category Date Date Treatment Clinician Date Bronchitis Bronchitis Disease Active U nivers 02-19 ity of 00:00: [place] 00 Medical Branch COPD COPD Disease Active 2014-02 Univers exacerbati exacerbati 2-17 it y of on on 00:00: [address] Allergies, Adverse Reactions, Alerts Allergy Allergy Status Severity Reaction(s) Onset Inactive Treating Comm ents Source Name Type Date Date Clinician NO KNOWN Drug Active Univers ALLERGIE Class ity of S [facility] Social History Social Habit Start Date Stop Date Quantity Comments Source History of Current smoker [place] of tobacco use [facility] [place] [facility] Tobacco use and 2022-05-31 2022-05-31 Smokeless tobacco Un iversity of exposure 00:00:00 00:00:00 non-user [facility] [place] [facility] Alcohol intake 2022-05-31 2022-05-31 Ex-drinker [facility] 00:00:00 00:00:00 (finding) [facility] [place] [facility] Exposure to 2022-05-15 2022-05-25 Not sure [facility] SARS-CoV-2 00:00:00 13:29:00 [facility] (event) [place] Sex Assigned At [birth year] Universit y of 00:00:00 00:00:00 [facility] [place] [facility] Smoking Status Start Date Stop Date Source Ex-smoker 2022-05-31 00:00:00 2022-05-31 00:00:00 [facility] Medications Ordered Filled Start Stop Current Ordering Indication Dosage Frequency Signature Comments Components Source Medication Medication Date Date Medication? Clinician (SIG) Name Name ceFAZolin 2022- No PRN, Univers (ANCEF) 05-31 Starting ity of injection 17:19: 17:28 on Missy [place] 00 :42 05/31/22 at Medical 1219, Branch Until Sat05/31/22 at 1228, IRA, Intra-op neomycin-po 2022- No PRN, Unive rs lymyxin-dex 05-31 Starting ity of amethasone 17:19: 17:28 on [facility] s (MAXITROL) 00 :42 05/31/22 at Med ical 3.5 1219, Branch mg/g-10,000 Until Missy unit/g-0.1 05/31/22 at % 1228, ophthalmic Routine, ointment Intra-op gentamicin 2022- No PRN, Univer s injection 05-31 Starting ity o f 17:19: 17:28 on Missy [place] 00 :42 4 at Medical 1219, Branch Until Missy 05/31/22 at 1228, IRA, Intra-op dexamethaso 2022- No PRN, Unive rs ne 05-31 Starting ity of (DECADRON 17:19: 17:28 on Missy [place] PHOSPHATE) 00 :42 05/31/22 at [facility] ical injection 1219, Branch Until Missy 05/31/22 [...] of ) 0.5 % 17:01: 17:28 on Missy [place] ophthalmic 00 :42 05/31/22 at [facility] ical drops 1201, Branch Until Missy 05/31/22 at 1228, Routine, Intra-op eye block 2022- No PRN, Univers syringe 11 05-31 Starting ity of mL 17:01: 17:28 on Missy [place] 00 :42 05/31/22 at Medical 1201, Branch Until Missy 05/31/22 at 1228, Intra-op water for 2022- No PRN, Univers irrigation 05-31 Starting ity of irrigation 16:59: 17:28 [place] solution 00 :42 05/31/22 at Medic al 1159, Branch Until Missy 05/31/22 at 1228, Routine, Intra-op sodium 2022- No PRN, Univers chloride 05-31 Starting ity of (NS) 16:58: 17:28 on Missy [place] injection 00 :42 05/31/22 at [facility] marcia 1158, Branch Until Missy 05/31/22 at 1228, Routine, Intra-op EPINEPHrine 2022- No PRN, Unive rs (PF) 05-31 Starting ity of 1:1,000 (1 16:58: 17:28 [place] mg/mL) 00 :42 05/31/22 at Medical (ADRENALIN 1158, Branch (PF)) Until Missy injection 05/31/22 at 1228, Routine, Intra-op balanced 2022- No PRN, Univers salt soln 05-31 Starting ity o f no.2 irrig. 16:57: 17:28 on Missy [place] (BSS) 00 :42 05/31/22 at Medical ophthalmic 1157, Branch solution Until Missy 05/31/22 [...] [place] 15 the Medical morning. Branch fluticasone 2022-0 Yes 1{puff} Inhale 1 Univers -umeclidin- 4-13 Puff in ity o f vilanter 13:21: the [place] (TRELEGY 15 morning. Medical ELLIPTA) Branch 200-62.5-25 mcg DsDv montelukast 2022-0 Yes 10mg Take 1 Univ ers 10 mg 4-13 tablet by ity of tablet 13:21: mouth as [place] 15 needed. Medical Branch albuterol 2022-0 Yes 2{puff} Inhale 2 U nivers (PROAIR [...] [place] 15 the Medical morning. Branch fluticasone 2022-0 Yes 1{puff} Inhale 1 Univers -umeclidin- 4-13 Puff in ity o f vilanter 13:21: the [place] (TRELEGY 15 morning. Medical ELLIPTA) Branch 200-62.5-25 [...] in ity o f vilanter 13:21: the [place] (TRELEGY 15 morning. Medical ELLIPTA) Branch 200-62.5-25 [...] 200-62.5-25 00:00: MCG/INH 00 AEPB TAKE 1 2021-02 No TABLET BY 2-15 MOUTH EVERY 00:00: DAY AT 00 BEDTIME TAKE 2 2021-1 No TABLETS BY 2-15 MOUTH EVERY 00:00: [...] 1mg mg tablet 7-13 00:00: 00 hydroxyzine 2-0 No 1mg HCl 25 mg 7-13 tablet [...] 2-0 No Unknown 7-13 00:00: 00 Dose 2022-0 No Unknown 7-13 00:00: 00 Dose 2-0 [...] 5-13 00:00: 00 Dose 2022-0 No Unknown 5-13 00:00: 00 Dose 2-0 No Unknown 4-14 00:00: 00 Dose 2-0 No Unknown 4-14 00:00: 00 Dose 2-0 No Unknown 4-14 00:00: 00 Dose 2-0 No Unknown 4-14 00:00: 00 ProAir HFA 2-0 No 1mcg/ac 90 3-18 tuation mcg/actuati 00:00: on aerosol 00 inhaler prednisone 2-0 No mg 20 mg 3-18 tablet 00:00: 00 ipratropium 2-0 No 3mg 0.5 3-18 base)/3 mg-albutero 00:00: mL l 3 mg (2.5 00 mg base)/3 mL nebulizatio n soln Dose 2021-0 No Unknown 3-18 00:00: 00 prednisone 2-0 No mg 20 mg 3-18 tablet 00:00: 00 USE 1 UNIT 2021-0 No DOSE IN 3-18 NEBULIZER 00:00: EVERY 4 00 HOURS NEEDED. Dose 2-0 No Unknown 3-17 00:00: 00 [...] 2-0 No Unknown 2-17 00:00: 00 Dose 2-0 No Unknown 2-17 00:00: 00 Dose 2022-0 No Unknown 2-17 00:00: 00 venlafaxine 2-0 No 1mg ER 150 mg 2-17 capsule,ext 00:00: ended 00 release 24 hr Dose 2-0 No Unknown 1-19 00:00: 00 Dose 2022-0 No Unknown 1-19 00:00: 00 Dose 2-0 No Unknown 1-19 00:00: 00 Dose 2-0 No Unknown 1-19 00:00: 00 hydroxyzine 1-1 No 1mg HCl 25 mg 2-30 tablet [...] 500 mg 0-28 tablet 00:00: 00 prednisone 2020-1 No 2mg 20 mg 0-04 tablet 00:00: 00 Dose 2021-1 No Unknown 0-04 00:00: 00 prednisone 1-1 [...] 90 2-19 tuation mcg/actuati 00:00: on aerosol inhaler ProAir HFA 0 No 1mcg/ac 90 2-19 tuation mcg/actuati 00:00: on aerosol inhaler ipratropium 2020-0 No 3mg 0.5 2-19 [...] inhaler ProAir HFA 2020-0 No 1mcg/ac 90 8-17 [...] 00:00: mcg/dose 00 powder for inhalation prednisone 2018- No 1mg 20 mg 2-31 tablet 00:00: [...] tab once daily for 3 days clonazePAM 2018- Yes .5mg Take 1 Unive rs 0.5 mg 1-08 tablet by ity of tablet 00:00: mouth 3 00 (three) Medical times Branch daily. ipratropium 2017-0 Yes 3mL Inhale 3 Un bert -albuterol 1-08 mL 4 ity of 0.5 mg-3 00:00: (four) [place] mg(2.5 mg 00 times Medical base)/3 mL daily as Branc h nebulizer needed for solution Wheezing. clonazePAM 2018- Yes .5mg Take 1 Unive rs 0.5 mg 1-08 tablet by ity of tablet 00:00: mouth 3 00 (three) Medical times Branch daily. ipratropium 2017-0 Yes 3mL Inhale 3 Un bert -albuterol 1-08 mL 4 ity of 0.5 mg-3 00:00: (four) [place] mg(2.5 mg 00 times Medical base)/3 mL daily as Branc h nebulizer needed for solution Wheezing. clonazePAM 2018-0 Yes .5mg Take 1 Unive rs 0.5 mg 1-08 tablet by ity of tablet 00:00: mouth 3 00 (three) Medical times Branch daily. ipratropium [...] Oxygen saturation in 2022-05-31 17:50:00 95 /min [facility] Arterial blood by [facility] Pulse oximetry Branch Systolic blood 2022-05-31 17:45:00 115 mm[Hg] [facility] Diastolic blood 2022-05-31 17:45:00 52 mm[Hg] [facility] Respiratory rate 2022-05-31 17:45:00 20 /min [facility] Heart rate 2022-05-31 17:23:00 84 /min [facility] Body temperature 2022-05-31 17:23:00 36.67 Arianna [facility] Body height 2022-05-25 18:00:00 162.6 cm [facility] Body weight 2022-05-25 18:00:00 92.08 kg [facility] BMI 2022-05-25 18:00:00 34.84 kg/m2 [facility] Systolic blood 2022-05-31 15:31:00 122 mm[Hg] Univer sity of pressure [facility] [place] [facility] Diastolic blood 2022-05-31 15:31:00 57 mm[Hg] Unive rsity of pressure [facility] [place] [facility] Heart rate 2022-05-31 15:31:00 88 /min [facility] Respiratory rate 2022-05-31 15:31:00 18 /min [facility] O[facility] saturation in 2022-05-31 15:31:00 99 /min [facility] Arterial blood by [facility] Pulse oximetry Branch Body temperature 2022-05-31 15:27:00 36.78 Arianna [facility] Body height 2022-05-25 18:00:00 162.6 cm [facility] Body weight 2022-05-25 18:00:00 92.08 kg [facility] BMI 2022-05-25 18:00:00 34.84 kg/m2 [facility] BP Systolic 2022-01-17 14:48:00 BP Diastolic 2022-01-17 [...] Performed Clinician PHACOEMULSIFICATION OF 2022-05-31 Meche Lam [facility] CATARACT WITH INTRAOCULAR 16:49:00 [place] Branch LENS IMPLANT PATIENT QUESTIONNAIRE 2022-05-31 Doctor Unassigned, [facility] 05:01:00 [place] [facility] ASSIGNMENT OF BENEFITS 2022-05-22 Doctor Unassigned, [facility] 21:36:19 [place] [facility] Plan of Care Planned Activity Planned Date Details Comments Source Goal Plan of Care Note [code = 23095-2] Goal Plan of Care Note [code = 11843-4] Goal Plan of Care Note [code = 22082-3] Goal Plan of Care Note [code = 09045-2] Goal Plan of Care Note [code = 89689-7] Goal Plan of Care Note [code = 45445-0] Goal Plan of Care Note [code = 51834-9] Goal Plan of Care Note [code = 26539-4] Goal Plan of Care Note [code = 23001-0] Goal Plan of Care Note [code = 91031-5] Goal Plan of Care Note [code = 95017-0] Goal Plan of Care Note [code = 30146-1] Goal Plan of Care Note [code = 86764-0] Goal Plan of Care Note [code = 41962-5] Goal Plan of Care Note [code = 17342-7] Goal Plan of Care Note [code = 38407-1] Goal Plan of Care Note [code = 17871-4] Goal Plan of Care Note [code = 78017-0] Goal Plan of Care Note [code = 12692-0] Goal Plan of Care Note [code = 35632-3] Goal Plan of Care Note [code = 11184-6] Goal Plan of Care Note [code = 29967-2] Goal Plan of Care Note [code = 33546-5] Goal Plan of Care Note [code = 37569-9] Goal Plan of Care Note [code = 36763-0] Goal Plan of Care Note [code = 63112-5] Goal Plan of Care Note [code = 06603-6] Goal Plan of Care Note [code = 03788-2] Goal Plan of Care Note [code = 45870-3] Goal Plan of Care Note [code = 16670-9] Goal Plan of Care Note [code = 70438-5] Goal Plan of Care Note [code = 55330-4] Goal Plan of Care Note [code = 61449-8] Goal Plan of Care Note [code = 90883-7] Goal Plan of Care Note [code = 79097-4] Goal Plan of Care Note [code = 98281-7] Goal Plan of Care Note [code = 97711-6] Goal Plan of Care Note [code = 35055-4] Goal Plan of Care Note [code = 43164-1] Goal Plan of Care Note [code = 11656-1] Goal Plan of Care Note [code = 37525-5] Goal Plan of Care Note [code = 39238-4] Goal Plan of Care Note [code = 33671-9] Goal Plan of Care Note [code = 87922-7] Goal Plan of Care Note [code = 08971-5] Goal Plan of Care Note [code = 01524-0] Goal Plan of Care Note [code = 40398-9] Goal Plan of Care Note [code = 33670-0] Goal Plan of Care Note [code = 69398-3] Goal Plan of Care Note [code = 12634-4] Encounters Start End Encounter Admission Attending Care Care Encounter Source Date/Time Date/Time Type Type Clinicians Facility Department ID 2020-12-18 Outpatient GINA MEIER OPH [id number] Univers 11:16:09 [facility]ly [facility] 2022-11-15 2022-11-15 Outpatient SFA SFA [id number] Chris 08:28:38 08:28:38 0928 [facility] 2022-10-11 2022-10-11 Outpatient SFA SFA [id number] 023 Chris 16:43:25 16:43:25 0824 [facility] 2022-09-07 2022-09-07 Outpatient SFA SFA [id number] 023 Chris 13:43:12 13:43:12 0721 [facility] 2022-09-04 2022-09-04 Outpatient SFA SFA [id number] Chris 14:30:07 14:30:07 0718 [facility] 2022-05-31 2022-05-31 Outpatient GINA MEIER OPH [id number] Univers 10:13:00 13:09:00 [facility] 2022-05-31 2022-05-31 Hospital [facility] 1.2.840.114 [id number] Univers 10:13:00 13:09:00 Encounter Meche CANELA 350.1.13.10 ity of [place] SUR[place] [id number] [facility] 071 Branch 2022-05-31 2022-05-31 Surgery [facility] 1.2.840.114 [id number] Univers 11:37:00 12:12:00 Meche ROLA 350.1.13.10 i ty of [place] 4[place]2.7.2.[place] SUR[place] [id number] [facility] 020 Branch 2022-05-31 2022-05-31 Orders Doctor CLAYTON 1.2.840.114 [id number] Univers 00:00:00 00:00:00 Only Unassigned, CHRIS 350.1.13.10 ity of [place] [facility] 4.2.7.2.686 Teddy as [id number] [facility] 009 [place] 2022-05-29 2022-05-29 Outpatient SFA SFA [id number] Chris 10:43:07 10:43:07 0411 [facility] 2022-05-22 2022-05-22 Orders Doctor CLAYTON 1.2.840.114 [id number] Univers 00:00:00 00:00:00 Only Unassigned, CHRIS 350.1.13.10 ity of [place] [facility] 4.2.7.2.686 Teddy as [id number] [address] 2022-05-17 2022-05-17 Outpatient SFA SFA [id number] 023 Chris 13:40:22 13:40:22 0330 [facility] 2022-04-18 2022-04-18 Outpatient SFA SFA [id number] 023 Chris 13:53:40 13:53:40 0301 [facility] 2022-04-17 2022-04-17 Outpatient SFA SFA [id number] 023 Chris 09:59:04 09:59:04 8 [facility] 2022-03-10 2022-03-10 Outpatient SFA SFA [id number] 023 Chris 12:17:29 12:17:29 0121 F Chas 2022-02-01 2022-02-01 Outpatient [id number] 00:00:00 00:00:00 Visit 3y6l-68jl p9q-38wy-5 -974d-6ff 74d-6ffe14 [id number] [id number] 2021-10-04 2021-10-04 Outpatient [id number] 00:00:00 00:00:00 Visit an7y-4q53 l6v-6b52-z -nl90-3j8 [id number] 2d22vsz0i 7efc1f 2020-05-26 2020-05-26 [facility] 1.2.840.114 [id number] 10:30:00 12:59:00 Encounter Meche Canela 350.1.13.10 [place] 4.2.7.2.686 Surgical [id number] [place] [address] 2020-05-26 2020-05-26 Surgery [facility] 1.2.840.114 [id number] 12:12:00 12:48:00 [facility] 350.1.13.10 [place] 4.2.7.2.686 Surgical [id number] [place] [address] 2020-05-26 2020-05-26 Anesthesia Bradley Elliott [facility] 1.2.840. 114 [id number] 12:09:00 12:37:00 Event Meche Lechuga 350.1.13. 10 Nicole 4.2.7.2.686 Surgical [id number] [place] 020 2020-05-25 2020-05-25 Laboratory Only, [facility] 1.2.840.114 [id number] 10:21:30 10:36:30 Only Test Rola 350.1.13.10 Nicole 4.2.7.2.686 [place] [id number] [facility] 2020-05-25 2020-05-25 Outpatient Margi LAM [facility] [id number] Univers 10:15:00 10:15:[address] [facility] 2020-05-19 2020-05-19 Child Support Case Officer [facility] 1.2.840.114 [id number] 12:11:02 12:26:02 Visit Lab Main Rola 350.1.13.10 Nicole 4.2.7.2.686 Nasim [id number] [facility] 353 [facility] 2020-05-19 2020-05-19 Outpatient R GENARO, [facility] [id number] Univers 12:15:00 12:15:[address] [facility] 2020-05-19 2020-05-19 Orders Doctor CLAYTON 1.2.840.114 [id number] 00:00:00 00:00:00 Only Unassigned, CHRIS 350.1.13.10 [place] [facility] 4.2.7.2.686 [id number] 009 2019-12-08 2019-12-08 Outpatient RAMIRO Barrios, [facility] [id number] [facility] 10:14:00 10:14:[address] Results Test Description Test Time Test Comments Results Result Comments Source CULTURE, URINE 2022-11-17 SPECIMEN NUMBER: 08:54:12 [id number] CULTURE, URINE SPECIMEN NUMBER: [id number] SPECIMEN COMMENT: URINE SOURCE: URINE REPORT STATUS: FINAL FINAL REPORT: 11/17/2022 50-100,000 CFU/ML UROGENITAL RICKEY PRESENT NO COMMON PATHOGENS UNLESS OTHERWISE INDICATED, ALL TESTING PERFORMED AT [facility] [address] [place] [address] MEMBER CERTIFICATION MANAGER: CHRISTINA STEVENS M.D. CLIA NUMBER [id number] [facility] [place]. [id number] LIPID PANEL 2022-09-08 04:49:16 Test Item Value [...] FOR MOREINFORMATION , SEE CLIENT ANNOUNCEMENT AT [email or web address] [email or web address] RATIO LDL/HDL (test code = 2.25 RATIO <3.22 UNLESS OTHERWISE INDICATED, ALL 2238) TESTING PERFORM ED AT CLINICAL PATHOLOGY [facility], [facility]. [address] [place] [address] LABORATORY DIRE CTOR: Kana COHEN RAUL NUMBER [id number] [facility] [place]. [id number] HEMOGLOBIN [id number] 02:57:56 Test Item Value Reference Range Interpretation Comments HEMOGLOBIN A1c (test code = 08665) 5.6 % 4.2-5.6 TSH, THIRD [id number] 05:54:28 Test Item Value Reference Range Interpretation Comments TSH, THIRD GENERATION (test code 0.631 UIU/ML 0.400-4.100 = 2821) HEMOGLOBIN [id number] 04:59:53 Test Item Value Reference Range Interpretation Comments HEMOGLOBIN A1c (test 6.1 % 4.2-5.6 H [employer] AN DIABETES code = 34015) ASSOCIATION [employer] FOR HGB A1C: PREDIABETES/INC REASED [...] TESTING OR LABORATORY C ONSULTATION. COMPREHENSIVE METABOLIC [id number] 03:54:48 Test Item Value Reference Range Interpretation Comments GLUCOSE (test code = 101 MG/DL 70-99 H 2216) BUN (test code = 20 MG/DL 08-07) CREATININE (test 0.99 MG/DL 0.60-1.30 code = 2214) eGFR (2020 CKD-EPI) 69 ML/MIN/1.73 >60 (test code = 45445) CALC BUN/CREAT (test 20 RATIO 08-15 code = 2235) SODIUM (test code = 144 MEQ/L 493-535 3625) POTASSIUM (test code 4.5 MEQ/L 3.5-5.4 = 2228) CHLORIDE (test code 101 MEQ/L 95-107 = [...] code = 11 U/L 5-40 2218) LIPID [id number] 03:54:48 Test Item Value Reference Range Interpretation [...] MOREINFORMATION , SEE CLIENT ANNOUNCE MENT AT [email or web address] RISK RATIO LDL/HDL 1.39 RATIO <3.22 [facility] has important (test code = 2238) pathology staff changes effecti ve 04/18/2022. New pathology staff will provide uninter rupted, excellent patie nt care and clinical consultation. S ee URL: [email or web address]. UNLES S OTHERWISE INDIC ATED, ALL TESTING PER FORMED AT [facility] [employer], [place]. [address] [place] [address] ZAIN CARDENAS DIRECTOR: Kana MCFARLAND RAUL NUMBER [id number] CAP [place]EDITATION N O. [id number] CBC W/AUTO DIFF WITH [id number] 03:51:06 Test Item Value Reference Range Interpretation [...] RBCS 0.00 K/UL 0.00-0.11 (test code = 92897) OCCULT BLD,FECAL,IMMUNOASSAY [id number] 11:30:47 Test Item Value Reference Range Interpretation Comments OCCULT BLD, FECAL NEGATIVE NEGATIVE [facility] has important (test code = 69852) patholog y staff changes effective 04/18. New pathology s taff will provide uninter rupted, excellent patie nt care and clinical consul tation. See URL: [email or web address]. UNLESS OT HERWISE INDICATED, ALL TESTING PERFORMED AT [facility] [employer]. [address] [place] [id number] [place] [address] DIRECTOR: Kana MCFARLAND RAUL NUMBER [id number] CAP ACCREDITATION N O. [id number] RSV BY [id number] 00:00:00 Test Item Value Reference Range Interpretation Comments RSV BY DFA (test code = 59811) Negative SOURCE (test code = 21005) Not Provided RSV BY [id number] 00:00:00 Test Item Value Reference Range Interpretation Comments RSV BY DFA (test code = 57369) Negative SOURCE (test code = 43297) Not Provided RSV BY [id number] 00:00:00 Test Item Value Reference Range Interpretation Comments RSV BY DFA (test code = 89715) Negative SOURCE (test code = 65024) Not Provided RSV BY [id number] 00:00:00 Test Item Value Reference Range Interpretation Comments RSV BY DFA (test code = 94103) Negative SOURCE (test code = 94822) Not Provided SARS-CoV-2 (COVID-19) by RT-PCR (HIGH RISK)2020-11-23 00:00:00 Test Item Value Reference Range Interpretation Comments SARS-CoV-2 INTERPRETATION (test NEGATIVE code = 36544) SOURCE (test code = 21234) NOT SPECIFIED SARS-CoV-2 (COVID-19) by RT-PCR (HIGH RISK)2020-11-23 00:00:00 Test Item Value Reference Range Interpretation Comments SARS-CoV-2 INTERPRETATION (test NEGATIVE code = 31493) SOURCE (test code = 71933) NOT SPECIFIED SARS-CoV-2 (COVID-19) by RT-PCR (HIGH RISK)2020-11-23 00:00:00 Test Item Value Reference Range Interpretation Comments SARS-CoV-2 INTERPRETATION (test NEGATIVE code = 10768) SOURCE (test code = 44575) NOT SPECIFIED SARS-CoV-2 (COVID-19) by RT-PCR (HIGH RISK)2020-11-23 00:00:00 Test Item Value Reference Range Interpretation Comments SARS-CoV-2 INTERPRETATION (test NEGATIVE code = 60208) SOURCE (test code = 96177) NOT SPECIFIED [id number] 00:00:00 Test Item Value Reference Range Interpretation Comments TSH, THIRD GENERATION (test code 1.080 UIU/ML = 2821) [id number] 00:00:00 Test Item Value Reference Range Interpretation Comments TSH, THIRD GENERATION (test code 1.080 UIU/ML = 2821) [id number] 00:00:00 Test Item Value Reference Range Interpretation Comments TSH, THIRD GENERATION (test code 1.080 UIU/ML = 2821) CBC W/AUTO [id number] 00:00:00 Test Item Value Reference Range Interpretation [...] NUCLEATED RBCS (test code = 0.00 K/UL 96734) CBC W/AUTO [id number] 00:00:00 Test Item Value Reference Range Interpretation [...] NUCLEATED RBCS (test code = 0.00 K/UL 40691) CBC W/AUTO [id number] 00:00:00 Test Item Value Reference Range Interpretation [...] NUCLEATED RBCS (test code = 0.00 K/UL 73950) VITAMIN D, 25 [id number] 00:00:00 Test Item Value Reference Range Interpretation Comments VITAMIN D, 25 OH (test code = 4958) 15 NG/ML VITAMIN D, 25 [id number] 00:00:00 Test Item Value Reference Range Interpretation Comments VITAMIN D, 25 OH (test code = 4958) 15 NG/ML [id number] 00:00:00 Test Item Value Reference Range Interpretation Comments TSH, THIRD GENERATION (test code 1.080 UIU/ML = 2821) [id number] 00:00:00 Test Item Value Reference Range Interpretation Comments TSH, THIRD GENERATION (test code 1.080 UIU/ML = 2821) [id number] 00:00:00 Test Item Value Reference Range Interpretation Comments TSH, THIRD GENERATION (test code 1.080 UIU/ML = 2821) CBC W/AUTO [id number] 00:00:00 Test Item Value Reference Range Interpretation [...] NUCLEATED RBCS (test code = 0.00 K/UL 41587) CBC W/AUTO [id number] 00:00:00 Test Item Value Reference Range Interpretation [...] NUCLEATED RBCS (test code = 0.00 K/UL 64612) CBC W/AUTO [id number] 00:00:00 Test Item Value Reference Range Interpretation [...] NUCLEATED RBCS (test code = 0.00 K/UL 98243) VITAMIN D, 25 [id number] 00:00:00 Test Item Value Reference Range Interpretation Comments VITAMIN D, 25 OH (test code = 4958) 15 NG/ML VITAMIN D, 25 [id number] 00:00:00 Test Item Value Reference Range Interpretation Comments VITAMIN D, 25 OH (test code = 4958) 15 NG/ML SARS-COV-2 (COVID19), NAAT [ADDED]2020-03-04 00:00:00 Test Item Value Reference Range Interpretation Comments SARS-CoV-2 INTERPRETATION (test POSITIVE code = 28799) SOURCE (test code = 32366) NOT SPECIFIED SARS-COV-2 (COVID19), NAAT [ADDED]2020-03-04 00:00:00 Test Item Value Reference Range Interpretation Comments SARS-CoV-2 INTERPRETATION (test POSITIVE code = 23297) SOURCE (test code = 66486) NOT SPECIFIED SARS-COV-2 (COVID19), NAAT [ADDED]2020-03-04 00:00:00 Test Item Value Reference Range Interpretation Comments SARS-CoV-2 INTERPRETATION (test POSITIVE code = 23497) SOURCE (test code = 66849) NOT SPECIFIED SARS-COV-2 (COVID19), NAAT [ADDED]2020-03-04 00:00:00 Test Item Value Reference Range Interpretation Comments SARS-CoV-2 INTERPRETATION (test POSITIVE code = 61743) SOURCE (test code = 90277) NOT SPECIFIED - XR CHEST 2 [id number] 11:11:00 [facility] AMADA [facility] : 1970 Sex: F FAX:Jn Barton MD [phone] [place]: [address]: REG Name: AMADA RIVERA [facility] : 1970 Age/S: 49/F [address] [place] [address] Unit #: [id number] Loc: [place] [address] Phys: Jn Barrios MD Acct: [id number] Dis Date: Status: REG CLI PHONE #: [phone] Exam Date: 12/08/2019 1111 FAX #: [phone]: R06.02, SHORTNESS OF BREATH. EXAMS: CPT CODE: [id number] XR CHEST 2 V 55926 CLINICAL HISTORY: R06.02, SHORTNESS OF BREATH. COMPARISON: [...] Gomez(R) Trnscrd Date/Time/By: 12/08/2019 (1111) : By: HiralYOS Orig Print D/T: S: 12/08/2019 (1418) PAGE 1 [id number] (COVID-19) by RT-PCR (HIGH RISK)2019-09-18 00:00:00 Test Item Value Reference Range Interpretation Comments SARS-CoV-2 INTERPRETATION (test NEGATIVE code = 66407) SOURCE (test code = 41655) NOT SPECIFIED SARS-CoV-2 (COVID-19) by RT-PCR (HIGH RISK)2019-09-18 00:00:00 Test Item Value Reference Range Interpretation Comments SARS-CoV-2 INTERPRETATION (test NEGATIVE code = 64800) SOURCE (test code = 89868) NOT SPECIFIED SARS-CoV-2 (COVID-19) by RT-PCR (HIGH RISK)2019-09-18 00:00:00 Test Item Value Reference Range Interpretation Comments SARS-CoV-2 INTERPRETATION (test NEGATIVE code = 09193) SOURCE (test code = 40129) NOT SPECIFIED SARS-CoV-2 (COVID-19) by RT-PCR (HIGH RISK)2019-09-18 00:00:00 Test Item Value Reference Range Interpretation Comments SARS-CoV-2 INTERPRETATION (test NEGATIVE code = 30041) SOURCE (test code = 34587) NOT SPECIFIED CBC W/AUTO [id number] 00:00:00 Test Item Value Reference Range Interpretation [...] code = 1015) 223 K/UL CBC W/AUTO [id number] 00:00:00 Test Item Value Reference Range Interpretation [...] code = 1015) 223 K/UL CBC W/AUTO [id number] 00:00:00 Test Item Value Reference Range Interpretation [...] code = 1015) 223 K/UL COMPREHENSIVE METABOLIC [id number] 00:00:00 Test Item Value Reference Range Interpretation Comments GLUCOSE (test code = 2217) 83 MG/DL BUN (test code = 2208) 17 MG/DL CREATININE (test code = 2214) 0.96 MG/DL eGFR AMER. (test code 80 ML/MIN/1.73 = 93707) eGFR NON- AMER. (test 69 ML/MIN/1.73 code = 87190) CALC BUN/CREAT (test code = 18 RATIO [...] BILIRUBIN, TOTAL (test code = 0.3 MG/DL 2207) ALKALINE PHOSPHATASE (test 93 U/L code = 2204) AST (test code = 2218) 35 U/L ALT (test code = 2219) 15 U/L COMPREHENSIVE METABOLIC [id number] 00:00:00 Test Item Value Reference Range Interpretation Comments GLUCOSE (test code = 2217) 83 MG/DL BUN (test code = 2208) 17 MG/DL CREATININE (test code = 2214) 0.96 MG/DL eGFR AMER. (test code 80 ML/MIN/1.73 = 33557) eGFR NON- AMER. (test 69 ML/MIN/1.73 code = 27063) CALC BUN/CREAT (test code = 18 RATIO [...] CALC GLOBULIN (test code = 2.6 G/DL 224) CALC A/G RATIO (test code = 1.6 RATIO 2233) BILIRUBIN, TOTAL (test code = 0.3 MG/DL 2206) ALKALINE PHOSPHATASE (test 93 U/L code = 2204) AST (test code = 2218) 35 U/L ALT (test code = 2219) 15 U/L CBC W/AUTO [id number] 00:00:00 Test Item Value Reference Range Interpretation [...] code = 1015) 223 K/UL CBC W/AUTO [id number] 00:00:00 Test Item Value Reference Range Interpretation [...] code = 1015) 223 K/UL CBC W/AUTO [id number] 00:00:00 Test Item Value Reference Range Interpretation [...] code = 1015) 223 K/UL COMPREHENSIVE METABOLIC [id number] 00:00:00 Test Item Value Reference Range Interpretation Comments GLUCOSE (test code = 2217) 83 MG/DL BUN (test code = 2208) 17 MG/DL CREATININE (test code = 2214) 0.96 MG/DL eGFR AMER. (test code 80 ML/MIN/1.73 = 58465) eGFR NON- AMER. (test 69 ML/MIN/1.73 code = 32104) CALC BUN/CREAT (test code = 18 RATIO [...] ALKALINE PHOSPHATASE (test 93 U/L code = 220) AST (test code = 2218) 35 U/L ALT (test code = 2219) 15 U/L COMPREHENSIVE METABOLIC [id number] 00:00:00 Test Item Value Reference Range Interpretation Comments GLUCOSE (test code = 2217) 83 MG/DL BUN (test code = 2208) 17 MG/DL CREATININE (test code = 2214) 0.96 MG/DL eGFR AMER. (test code 80 ML/MIN/1.73 = 42267) eGFR NON- AMER. (test 69 ML/MIN/1.73 code = 04776) CALC BUN/CREAT (test code = 18 RATIO [...]
--- NOTE | 2023-01-20 19:53 | RAD REPORT ---
EXAM DESCRIPTION: [place] Single View01/20/2023 7:45 pm CLINICAL HISTORY: Chest pain COMPARISON: December 2022 FINDINGS: Lungs are hyperaerated. The lungs appear clear of acute infiltrate. The heart is normal size IMPRESSION: No acute abnormalities displayed
[2023-01-20 20:02] LABS: Absolute Lymphocytes (CBC) 1.5 K/uL (0.7-4.9); Hematocrit 39.7 % (36.0-45.0); Lymphocytes % 13.2 % (15.3-44.8); MCV 95.1 fL (80-100); MPV 7.2 fL (7.6-11.3); Platelets 246 thou/uL (152-406); RBC Red Blood Cell Count 4.17 M/uL (3.86-4.86)
[2023-01-20 20:14] LABS: Magnesium 2.1 mg/dL (1.6-2.4); Potassium 3.4 mEq/L (3.5-5.1); Troponin High Sensitivity 7.1 pg/mL (<58.9)
[2023-01-20] MEDS ORDERED: NA CHLORIDE 0.9% 1,000 ML ONE (21:21)
[2023-01-20] MEDS ORDERED: METHYLPREDNISOLONE 125 MG INJ ONE (21:21)
[2023-01-20] MEDS ORDERED: ALBUTEROL 2.5 MG/3 ML NEB SOL ONE (21:21)
[2023-01-20] MEDS ORDERED: IPRATROPIUM BROM 0.5MG/2.5ML ONE (21:21)
--- NOTE | 2023-01-20 21:56 | RAD REPORT ---
EXAM DESCRIPTION: CT - Chest For Pe Angio - 01/20/2023 9:43 pm CLINICAL HISTORY: Chest pain COMPARISON: December 2022 TECHNIQUE: Dynamically enhanced axial 3 mm thick images of the chest were obtained during administra tion of 100 mL Isovue 370 IV contrast. Coronal and oblique reconstruction images were generated and r eviewed. Exam utilizes a protocol for optimal evaluation of pulmonary arterial tree. Maximum intensity projections 3D imaging was utilized All CT scans are performed using dose optimization technique as appropriate and may include automated exposure control or mA/KV adjustment according to patient size. FINDINGS: A pulmonary embolus is not seen. A thoracic aortic aneurysm is not noted. A pleural effusion is not seen. A pericardial effusion is not seen. A 2 centimeter opacity lateral right middle lobe. COPD. Mild lingular atelectasis Prominent epicardial fat accounts for an opacity seen on the chest x-ray left lung base IMPRESSION: Negative for a pulmonary embolism. 2 centimeter opacity repeat lateral right middle lobe probably pneumonia
[2023-01-20] MEDS ORDERED: CEFTRIAXONE 1000 MG/VIAL ONE (23:14)
[2023-01-20] MEDS ORDERED: NS 0.9% VIAL 10 ML ONE (23:14)
[2023-01-20] MEDS ORDERED: AZITHROMYCIN 500 MG INJ IVPB ONE (23:14)
[2023-01-20] MEDS ORDERED: NA CHLORIDE 0.9% 250 ML ONE (23:14)
[2023-01-20] MEDS ORDERED: FENTANYL CITR 100 MCG/2 ML ONE (23:17)
[2023-01-20] MEDS ORDERED: FUROSEMIDE 40 MG/4 ML VIAL ONE (23:38)
--- NOTE | 2023-01-21 00:01 | EDPHYS ---
Physician Documentation [facility] Name: Roxanne Duran Age: 52 yrs Sex: Female : 1970 Arrival Date: 01/20/2023 Time: 19:18 Bed 11 Private MD: ED Physician Nestor Navas HPI: 01/20 23:27 This 52 yrs old Female presents to ER via EMS with complaints of Chest Pain, Shortness kb Of Breath. 23:27 Patient is a 52-year-old female with a history of COPD, DVT, diabetes who presents for kb right-sided chest pain, shortness of breath and cough that started 2 days ago. Denies fever. States chest pain is worse with inspiration and movement. States she increased her home oxygen to 4 L prior to calling EMS. 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 - Social history:: Smoking status: unknown. ROS: 23:24 Constitutional: Negative for fever, chills, and weight loss, kb 23:24 Cardiovascular: Positive for chest pain, with cough, with movement, 23:24 Respiratory: Positive for cough, shortness of breath, 23:24 All other systems are negative, Exam: 23:13 Constitutional: This is a well developed, well nourished patient who is awake, alert, kb and in no acute distress. Head/Face: Normocephalic, atraumatic. ENT: Moist Mucous membranes Cardiovascular: Regular rate Respiratory: Respirations even and unlabored. No increased work of breathing. Talking in full sentences Abdomen/GI: Soft, non-tender. No distention Skin: Warm, dry with normal turgor. Normal color. MS/ Extremity: Pulses equal, no cyanosis. Neurovascular intact. Full, normal range of motion. Neuro: Awake and alert, GCS 15, oriented to person, place, time, and situation. Moves all extremities. Normal gait. 23:13 ECG was reviewed by the Attending Physician. Vital Signs: 19:32 BP 105 / 49; Pulse 93; Resp 18; Temp 98.7(O); Pulse Ox 99% on 3 lpm NC; Weight 92.99 cm10 kg; Height 5 ft. 4 in. ; Pain 10/10; 20:30 BP 103 / 67; Pulse 93; Resp 18; Pulse Ox 100% on 2.5 lpm NC; cm10 21:00 BP 106 / 54; Pulse 92; Resp 18; Pulse Ox 100% on 2.5 lpm NC; cm10 22:00 BP 101 / 54; Pulse 94; Resp 18; Pulse Ox 98% on 2.5 lpm NC; cm10 01/21 00:00 BP 119 / 64; Pulse 92; Resp 18; Pulse Ox 98% on 2.5 lpm NC; cm10 01:01 BP 107 / 64; Pulse 102; Resp 20; Pulse Ox 98% on 2.5 lpm NC; cm10 01/20 19:32 Body Mass Index 35.19 (92.99 kg, 162.56 cm) cm10 01/20 19:32 Pain Scale: Adult cm10 MDM: 01/20 19:28 Patient medically screened. kb 23:25 Differential diagnosis: pneumonia, pulmonary edema, pulmonary embolism, uri, covid, kb flu. Data reviewed: vital signs, nurses notes. Consideration of Admission/Observation Escalation of care including admission/observation considered. admission considered for pneumonia but oxygen saturation 98% on home O2 of 2.5L/min, resp even and unlabored. Pt in agreement with outpatient antibiotics and return for worsening symptoms. Historians other than the Patient: EMS: [facility]. Counseling: I had a detailed discussion with the patient and/or guardian regarding the historical points, exam findings, and any diagnostic results supporting the discharge/admit diagnosis, lab results, radiology results, the need for outpatient follow up, a family practitioner, to return to the emergency department if symptoms worsen or persist or if there are any questions or concerns that arise at home. 01/20 19:28 Order name: Basic Metabolic Panel; Complete Time: 20:19 kb 01/20 19:28 Order name: CBC with Diff; Complete Time: 20:19 kb 01/20 19:28 Order name: Magnesium; Complete Time: 20:19 kb 01/20 19:28 Order name: NT PRO-BNP; Complete Time: 20:19 kb 01/20 19:28 Order name: Troponin HS; Complete Time: 20:19 kb 12/03 19:28 Order name: COVID-19 SARS RT PCR; Complete Time: 20:27 kb 01/20 19:28 Order name: Flu; Complete Time: 20:27 kb 01/20 21:58 Order name: Blood Culture Adult (2) kb 01/20 21:58 Order name: Lactate w/ 2H reflex if indic.; Complete Time: 00:01 kb 01/20 19:28 Order name: XRAY Chest (1 view); Complete Time: 19:55 kb 01/20 20:57 Order name: CT Chest For PE Angio; Complete Time: 21:58 kb 01/20 19:28 Order name: EKG; Complete Time: 19:29 kb 01/20 19:28 Order name: Cardiac monitoring; Complete Time: 19:46 kb 01/20 19:28 Order name: EKG - Nurse/Tech; Complete Time: 20:37 kb 01/20 19:28 Order name: IV Saline Lock; Complete Time: 19:46 kb 01/20 19:28 Order name: Labs collected and sent; Complete Time: 19:46 kb 01/20 19:28 Order name: O2 Per Protocol; Complete Time: 19:46 kb 01/20 19:28 Order name: O2 Sat Monitoring; Complete Time: 19:46 kb EC:13 Rate is 92 beats/min. Rhythm is regular. QRS [place] is Normal. IA interval is normal at kb 132 msec. QRS interval is normal at 70 msec. QT interval is normal at 435 msec. Administered Medications: 21:15 Drug: NS 0.9% IV 1000 ml IV at 1000 ml once Route: IV; Rate: 1000 ml; Site: right cm10 antecubital; 23:00 Follow up: Response: No adverse reaction; IV Status: Completed infusion; IV Intake: cm10 1000ml 21:15 Drug: Albuterol Inhalation 2.5 mg Inhalation once Route: Inhalation; cm10 21:50 Follow up: Response: No adverse reaction cm10 21:15 Drug: Ipratropium Inhalation Aerosol 0.5 mg Inhalation once Route: Inhalation; cm10 21:50 Follow up: Response: No adverse reaction cm10 21:15 Drug: MethylPrednisoLONE IVP 125 mg IVP once Route: IVP; Site: right antecubital; cm10 21:50 Follow up: Response: No adverse reaction 10 23:16 Drug: fentaNYL (PF) IVP 25 mcg IVP once Route: IVP; Site: right antecubital; cm10 01/21 00:32 Follow up: Response: No adverse reaction cm10 01/20 23:16 Drug: Rocephin IV 1 grams IV at calculated rate once; Given slow IV push per pharmacy cm10 instructions Route: IV; Rate: calculated rate; Site: right antecubital; 23:30 Follow up: Response: No adverse reaction; IV Status: Completed infusion; IV Intake: [id number] 23:23 Drug: Zithromax IVPB 500 mg IVPB once over 1 hrs; mix in 250 mL NS Route: IVPB; Infused cm10 Over: 1 hrs; Site: right antecubital; 01/21 00:32 Follow up: IV Status: Completed infusion; IV Intake: 250ml cm10 00:29 Drug: LORazepam PO 1 mg PO once Route: PO; cm10 Disposition: 01/20 23:30 I was immediately available on-site in the Emergency Department for consultation in the ms3 care of the patient. Disposition Summary: 01/21/23 00:00 Discharge Ordered Notes: Location: Home kb Condition: Stable kb Diagnosis - Pneumonia, unspecified organism kb Followup: kb - With: Emergency Department - When: As needed - Reason: Worsening of condition Followup: kb - With: Private Physician - When: 2 - 3 days - Reason: Recheck today's complaints, Continuance of care, Re-evaluation by your physician Discharge Instructions: - Discharge Summary Sheet kb - Community-Acquired Pneumonia, Adult, [id number] kb Forms: - Medication Reconciliation Form kb - Thank You Letter kb - Antibiotic Education kb - Prescription Opioid Use kb - Patient Portal Instructions kb - Leadership Thank You Letter kb Prescriptions: - Prednisone 20 mg Oral Tablet - take 1 tablet ORAL route once daily for 5 days; 5 tablet; Refills: 0, Product kb Selection Permitted - Zithromax 500 mg Oral Tablet - take 1 tablet ORAL route once daily for 5 days; 5 tablet; Refills: 0, Product kb Selection Permitted Signatures: Dispatcher [employer] Daniela Mccauley, VINI ARREDONDO-Nestor Webb DO DO ms3 Yuki Olivre, RN RN cm10
--- NOTE | 2023-01-21 00:01 | ER ---
Nurse's Notes [facility] Name: Roxanne Duran Age: 52 yrs Sex: Female : 1970 Arrival Date: 01/20/2023 Time: 19:18 Bed 11 Private MD: Diagnosis: Pneumonia, unspecified organism Presentation: 01/20 19:32 Chief complaint: Patient states: Right sided chest pain that is worse with inspiration cm10 and movement and shortness of breath X2 days. Pt states that she also has a productive cough. Coronavirus screen: Vaccine status: Patient reports being unvaccinated. Client denies travel out of the [place] in the last 14 days. Ebola Screen: Patient denies travel to an Ebola-affected area in the 21 days before illness onset. No symptoms or risks identified at this time. Initial Sepsis Screen: Does the patient meet any 2 criteria? No. Patient's initial sepsis screen is negative. Does the patient have a suspected source of infection? No. Patient's initial sepsis screen is negative. Risk Assessment: Do you want to hurt yourself or someone else? Patient reports no desire to harm self or others. Onset of symptoms was January 20, 2023. 19:32 Method Of Arrival: EMS: [facility] cm10 19:32 Acuity: SHYLA 2 cm10 Triage Assessment: 19:33 General: Appears uncomfortable, Behavior is calm, cooperative. Pain: Complains of pain cm10 in chest Pain does not radiate. Pain currently is 10 out of 10 on a pain scale. Quality of pain is described as sharp, Pain began 1 day ago. Aggravated by repositioning. EENT: No deficits noted. No signs and/or symptoms were reported regarding the EENT system. Neuro: No deficits noted. Level of Consciousness is awake, alert, obeys commands, Oriented to person, place, time, situation. Cardiovascular: No deficits noted. Patient's skin is warm and dry. Respiratory: Reports shortness of breath on exertion cough that is productive. Respiratory: No deficits noted. Airway is patent Respiratory effort is even, unlabored, Respiratory pattern is regular, symmetrical, Breath sounds are diminished bilaterally. GI: No deficits noted. No signs and/or symptoms were reported involving the gastrointestinal system. : No deficits noted. No signs and/or symptoms were reported regarding the genitourinary system. Derm: No deficits noted. No signs and/or symptoms reported regarding the dermatologic system. Musculoskeletal: No deficits noted. No signs and/or symptoms reported regarding the musculoskeletal system. Range of motion: intact in all extremities. 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 - Social history:: Smoking status: unknown. Screenin:34 [facility] ED Fall Risk Assessment (Adult) History of falling in the last 3 months, cm10 including since admission No falls in past 3 months (0 pts) Confusion or Disorientation No (0 pts) Intoxicated or Sedated No (0 pts) Impaired Gait No (0 pts) Mobility Assist Device Used No (0 pt) Altered Elimination No (0 pt) Score/Fall Risk Level 0 - 2 = Low Risk Oriented to surroundings, Maintained a safe environment, Hourly rounding (assess needs \T\ fall precautionary measures) done. Abuse screen: Denies threats or abuse. Denies injuries from another. Nutritional screening: No deficits noted. Tuberculosis screening: No symptoms or risk factors identified. Assessment: 21:53 Reassessment: Patient appears in no apparent distress at this time. No changes from cm10 previously documented assessment. Patient and/or family updated on plan of care and expected duration. Pain level reassessed. Patient is alert, oriented x 3, equal unlabored respirations, skin warm/dry/pink. 23:33 Reassessment: Patient appears in no apparent distress at this time. Patient and/or cm10 family updated on plan of care and expected duration. Pain level reassessed. Patient is alert, oriented x 3, equal unlabored respirations, skin warm/dry/pink. Patient states feeling better. Patient states symptoms have improved. 1204 00:25 Reassessment: Patient is alert/active/playful, equal unlabored respirations, skin cm10 warm/dry/pink. Pt reports increasing shortness of breath and states that she feels like she is having a panic attack. Provider made aware. Provider to bedside to reassess patient. Pt's O2 sat remains at 98% on 2.5L NC. 01:03 Reassessment: Pt reports that she is feeling a little better. Pt verbalized cm10 understanding to return to the ED for worsening symptoms. Vital Signs: 01/20 19:32 BP 105 / 49; Pulse 93; Resp 18; Temp 98.7(O); Pulse Ox 99% on 3 lpm NC; Weight 92.99 cm10 kg; Height 5 ft. 4 in. ; Pain 10/10; 20:30 BP 103 / 67; Pulse 93; Resp 18; Pulse Ox 100% on 2.5 lpm NC; cm10 21:00 BP 106 / 54; Pulse 92; Resp 18; Pulse Ox 100% on 2.5 lpm NC; cm10 22:00 BP 101 / 54; Pulse 94; Resp 18; Pulse Ox 98% on 2.5 lpm NC; cm10 01/21 00:00 BP 119 / 64; Pulse 92; Resp 18; Pulse Ox 98% on 2.5 lpm NC; cm10 01:01 BP 107 / 64; Pulse 102; Resp 20; Pulse Ox 98% on 2.5 lpm NC; cm10 01/20 19:32 Body Mass Index 35.19 (92.99 kg, 162.56 cm) cm10 01/20 19:32 Pain Scale: Adult cm10 ED Course: 01/20 19:20 Patient arrived in ED. [id number] 19:27 Daniela Tinoco FNP-C is PHCP. kb 19:27 Nestor Navas DO is Attending Physician. kb 19:33 Triage completed. cm10 19:33 Arm band placed on Patient placed in an exam room, on a stretcher, on oxygen, on cm10 cardiac sonographer, on pulse oximetry. 19:34 Patient has correct armband on for positive identification. Bed in low position. Call cm10 light in reach. Side rails up X2. Provided Education on: ER process and procedures. . Client placed on continuous cardiac and pulse oximetry monitoring. NIBP monitoring applied. 19:35 No provider procedures requiring assistance completed. Oxygen administration via nasal cm10 cannula \T\ 3L/min. 19:45 Initial lab(s) drawn, by me, sent to lab. COVID swab sent to lab. Flu and/or RSV swab cm10 sent to lab. Inserted saline lock: 20 gauge in right antecubital area, using aseptic technique. Blood collected. 19:46 Flu Sent. cm10 19:46 COVID-19 SARS RT PCR Sent. cm10 19:46 Basic Metabolic Panel Sent. cm10 19:46 CBC with Diff Sent. cm10 19:46 Magnesium Sent. cm10 19:46 NT PRO-BNP Sent. cm10 19:46 Troponin HS Sent. cm10 19:47 XRAY Chest (1 view) In Process Unspecified. EDMS 20:06 Yuki Oliver, RN is Primary Nurse. cm10 21:43 CT Chest For PE Angio In Process Unspecified. EDMS 22:45 Lactate w/ 2H reflex if indic. Sent. cm10 04 01:02 IV discontinued, intact, bleeding controlled, No redness/swelling at site. Pressure cm10 dressing applied. Administered Medications: 01/20 21:15 Drug: NS 0.9% IV 1000 ml IV at 1000 ml once Route: IV; Rate: 1000 ml; Site: right cm10 antecubital; 23:00 Follow up: Response: No adverse reaction; IV Status: Completed infusion; IV Intake: cm10 1000ml 21:15 Drug: Albuterol Inhalation 2.5 mg Inhalation once Route: Inhalation; cm10 21:50 Follow up: Response: No adverse reaction cm10 21:15 Drug: Ipratropium Inhalation Aerosol 0.5 mg Inhalation once Route: Inhalation; cm10 21:50 Follow up: Response: No adverse reaction cm10 21:15 Drug: MethylPrednisoLONE IVP 125 mg IVP once Route: IVP; Site: right antecubital; cm10 21:50 Follow up: Response: No adverse reaction cm10 23:16 Drug: fentaNYL (PF) IVP 25 mcg IVP once Route: IVP; Site: right antecubital; cm10 01/21 00:32 Follow up: Response: No adverse reaction cm10 01/20 23:16 Drug: Rocephin IV 1 grams IV at calculated rate once; Given slow IV push per pharmacy cm10 instructions Route: IV; Rate: calculated rate; Site: right antecubital; 23:30 Follow up: Response: No adverse reaction; IV Status: Completed infusion; IV Intake: [id number] 23:23 Drug: Zithromax IVPB 500 mg IVPB once over 1 hrs; mix in 250 mL NS Route: IVPB; Infused cm10 Over: 1 hrs; Site: right antecubital; 01/21 00:32 Follow up: IV Status: Completed infusion; IV Intake: 250ml cm10 00:29 Drug: LORazepam PO 1 mg PO once Route: PO; cm10 Medication: 01/20 19:34 VIS not applicable for this client. cm10 Intake: 23:00 IV: 1000ml; Total: 1000ml. cm10 23:30 IV: 10ml; Total: 1010ml. cm10 01/21 00:32 IV: 250ml; Total: 1260ml. cm10 Outcome: 00:00 Discharge ordered by MD. mclain 01:02 Discharged to home via wheelchair, with family, cm10 01:02 Condition: good 01:02 Discharge instructions given to patient, Instructed on discharge instructions, follow up and referral plans. medication usage, Demonstrated understanding of instructions, follow-up care, medications, Prescriptions given X 2, 01:03 Patient left the ED. cm10 Signatures: Dispatcher [employer] EDMS Daniela Tinoco, DRIVER SALES-C DRIVER SALES-CkChica Stark6 Yuki Oliver, RN RN cm10 Corrections: (The following items were deleted from the chart) 01/20 21:17 19:33 Respiratory: No deficits noted. Airway is patent Respiratory effort is even, cm10 unlabored, Respiratory pattern is regular, symmetrical, Breath sounds are clear bilaterally. cm10 01/21 01:03 00:25 Reassessment: Pt reports increasing shortness of breath. Provider made aware. cm10 Provider to bedside to reassess patient. Pt's O2 sat remains at 98% on 2.5L NC. cm10
[2023-01-21] MEDS ORDERED: LORAZEPAM 1 MG TABLET ONE (00:42)
[2023-01-21 04:44] VITALS: BP 107/64; TEMP 98.7; O2SAT 98
--- NOTE | 2023-01-22 13:33 | EKG ---
Test Date: 2023-01-20 Test Time: 20:32:52 Diesel Fitter Mechanic: KAMALJIT MEASUREMENT RESULTS: Intervals: Rate: 92 [place]: 132 QRSD: 70 QT: 352 QTc: 435 [place]: P: 81 [place]: 132 QRS: 68 T: 64 INTERPRETIVE STATEMENTS: Normal sinus rhythm Normal ECG Compared to ECG 12/22/2022 17:53:53 Atrial abnormality no longer present Electronically Signed On 01-22-23 13:27:49 EMISSIONS ENGINEER by Bob Reyez
== END 2023-01-21 01:03 | disposition home or self-care (01) ==
LOC: ER 19:18
DX: J18.9 Pneumonia, unspecified organism (principal); Z11.52 Encounter for screening for COVID-19
CPT/HCPCS: 96365; 96361; 93005; 87040 ×2; 85025; 80048; 36415; 83735; 83605; 84484; 83880; 87635; 87804 ×2; 71275; 71045; 96375; 99285; Q9967; A4216; J1940; J7613; J7644; J3010; J2930; J7050; J7030; J0696

== ENCOUNTER 2023-06-17 17:07 | Emergency (ER) | payer OTHER ==
--- OUTSIDE RECORDS SUMMARY | 2023-06-17 17:11 | XMS REPORT | Continuity of Care Document ---
Author Name Unknown Address [address] [facility] [address] [place] [address] [facility] Address [address] [facility] [address] [place] [address] Care Team Providers Care Mitigation Supervisor Name Role Phone YENIFER CRUZ Primary Care Physician Unavailab MECHE Hylton Attending Clinician COLLIN Howard Attending Clinician Unavailable COLLIN ORTEGA Attending Clinician Unavailable MARY FELTON Attending Clinician Unavailable Meche Lam MD Attending Clinician [phone]- [phone] Doctor Unassigned, [place] Attending Clinician Bradley Sandhu MD Attending Clinician [phone] Meche Lechuga MD Attending Clinician Only, Ad[facility] Test Attending Clinician Unavailable Pob, [facility] Main Attending Clinician UnavailJn Walker Attending Clinician Unavailable MECHE LAM Admitting Clinician Meche Colón MD Admitting Clinician [phone]- [phone] Jn Barrios Admitting Clinician Unavailable Payers Payer Name Policy Type Policy Number Effective Date Expirati on Date Source [facility] STAR [id number] 2020 00:00:00 [facility] DUAL COMP HMO D SNP [id number] 2022 00:00:00 Problems Condition Name Condition Details Condition Category Status Onset Date Resolution Date Last Treatment Date Treating Clinician Comments Source Bronchitis Bronchitis Disease Active 02-19 00:00: 00 [facility] COPD exacerbati on COPD exacerbati on Disease Active 2014-02 00:00: 00 [facility] Allergies, Adverse Reactions, Alerts Allergy Name Allergy Type Status Severity Reaction(s) Onset Date Inactive Date Treating Clinician Comments Source NO KNOWN ALLERGIE S Drug Class Active [facility] Social History Social Habit Start Date Stop Date Quantity Comments Source History of tobacco use Current smoker [facility] Tobacco use and exposure 2022-05-31 00:00:00 2022-05-31 00:00:00 Smokeless tobacco non-user [facility] Alcohol intake 2022-05-31 00:00:00 2022-05-31 00:00:00 Ex-drinker (finding) [facility] Exposure to SARS-CoV-2 (event) 2022-05-15 00:00:00 2022-05-25 13:29:00 Not sure [facility] Sex Assigned At 1970 00:00:00 1970 00:00:00 [facility] Smoking Status Start Date Stop Date Source Ex-smoker 2022-05-31 00:00:00 2022-05-31 00:00:[address] [facility] Medications Ordered Medication Name Filled Medication Name Start Date Stop Date Current Medication? Ordering Clinician Indication Dosage Frequency Signature (SIG) Comments Components Source ceFAZolin (ANCEF) injection 05-31 17:19: 00 05-31 17:28 :42 No PRN, Starting on Missy 05/31/22 at 1219, Until Missy 05/31/22 at 1228, IRA, Intra-op [facility] neomycin-po lymyxin-dex amethasone (MAXITROL) 3.5 mg/g-10,000 unit/g-0.1 % ophthalmic ointment 05-31 17:19: 00 05-31 17:28 :42 No PRN, Starting on Missy 05/31/22 at 1219, Until Missy 05/31/22 at 1228, Routine, Intra-op [facility] gentamicin injection 05-31 17:19: 00 05-31 17:28 :42 No PRN, Starting on Missy 05/31/22 at 1219, Until Missy 05/31/22 at 1228, IRA, Intra-op [facility] dexamethaso ne (DECADRON PHOSPHATE) injection 05-31 17:19: 00 05-31 17:28 :42 No PRN, Starting on Missy 05/31/22 at 1219, Until Missy 05/31/22 at 1228, Routine, Intra-op [facility] chondroitin sulf-sod hyaluronate (DUOVISC VISCO ELASTIC) intraocular injection 05-31 17:11: 00 05-31 17:28 :42 No PRN, Starting on Missy 05/31/22 at 1211, Until Missy 05/31/22 at 1228, Rout[facility]OCA[facility] ) 0.5 % ophthalmic drops 05-31 17:01: 00 05-31 17:28 :42 No PRN, Starting on Missy 05/31/22 at 1201, Until Missy 05/31/22 at 1228, Routine, [facility] 11 mL 05-31 17:01: 00 05-31 17:28 :42 No PRN, Starting on Missy 05/31/22 at 1201, Until Missy 05/31/22 at 1228, Intra-op [facility] water for irrigation irrigation solution 05-31 16:59: 00 05-31 17:28 :42 No PRN, Starting on Missy 05/31/22 at 1159, Until Missy 05/31/22 at 1228, Routine, Intra-op [facility] sodium chloride (NS) injection 05-31 16:58: 00 05-31 17:28 :42 No PRN, Starting on Missy 05/31/22 at 1158, Until Missy 05/31/22 at 1228, Routine, Intra-op [facility] EPINEPHrine (PF) 1:1,000 (1 mg/mL) (ADRENALIN (PF)) injection 05-31 16:58: 00 05-31 17:28 :42 No PRN, Starting on Missy 05/31/22 at 1158, Until Missy 05/31/22 at 1228, Routine, Intra-op [facility] balanced salt soln no.2 irrig. (BSS) ophthalmic solution 05-31 16:57: 00 05-31 17:28 :42 No PRN, Starting on Missy 05/31/22 at 1157, Until Missy 05/31/22 at 1228, Routine, Intra-op [facility] cyclopent 1%-tropic 1%-phenyl 2.5%-ketor 0.5% (MYDRIATIC #5) ophthalmic solution syringe 0.5 mL 05-31 15:15: 00 05-31 15:32 :00 No .5mL 0.5 mL, Left Eye, ONCE, 1 dose, On Missy 05/31/22 at 1015, Routine, DSU Pre-op [facility] lactated ringers IV infusion 1,000 mL 05-31 15:15: 00 05-31 15:34 :00 No 1000mL at 42 mL/hr, 1,000 mL, IV Infusion, ONCE, 1 dose, On Missy 05/31/22 at 1015, Routine, DSU Pre-op [facility] apixaban 5 mg tablet 05-31 13:21: 15 Yes 5mg Take 1 tablet by mouth in the morning and 1 tablet in the evening. [facility] rivaroxaban (XARELTO) 10 mg tablet 05-31 13:21: 15 Yes 10mg Take 1 tablet by mouth in the morning. [facility] predniSONE 10 mg tablet 05-31 13:21: 15 Yes 10mg Take 1 tablet by mouth in the morning. [facility] fluticasone -umeclidin- vilanter (TRELEGY ELLIPTA) 200-62.5-25 mcg DsDv 05-31 13:21: 15 Yes 1{puff} Inhale 1 Puff in the morning. [facility] montelukast 10 mg tablet 05-31 13:21: 15 Yes 10mg Take 1 tablet by mouth as needed. [facility] albuterol (PROAIR HFA) 90 mcg/actuati on inhaler 05-31 13:21: 15 Yes 2{puff} Inhale 2 Puffs every 6 (six) hours as needed for Wheezing or Shortness of Breath. [facility] TAKE 1 AND 1/2 TABLETS DAILY. 2021-02 00:00: 00 No TAKE 1 CAPSULE EVERY MORNING. 2021-02 00:00: 00 No USE 1 UNIT DOSE IN NEBULIZER EVERY 4 HOURS NEEDED. 2021-02 00:00: 00 No INHALE 2 PUFFS BY MOUTH EVERY 6 HOURS NEEDED 2021-02 00:00: 00 No PREDNISONE 20 MG TABS 2021-02 00:00: 00 No TAKE 1 CAPSULE BY MOUTH THREE TIMES DAILY NEEDED FOR COUGH 2021-02 00:00: 00 No TAKE 1 TABLET BY MOUTH EVERY DAY AT BEDTIME FOR 30 DAYS 2021-02 00:00: 00 No MONTELUKAST SODIUM 10 MG TABS 2021-02 00:00: 00 No TAKE 1 (15 MG) TABLET BY MOUTH TWICE A DAY FOR 21 DAYS, THEN 20MG TABLET ONCE DAILY WITH DINNER 2021-02 00:00: 00 No INHALE 1 PUFF BY MOUTH EVERY DAY 2021-02 00:00: 00 No FLUOXETINE HCL 20 MG CAPS 2021-02 00:00: 00 No PREDNISONE 10 MG TABS 2021-02 00:00: 00 No TAKE 1 TABLET BY MOUTH EVERY DAY FOR 30 DAYS 2021-02 00:00: 00 No TAKE 1 TABLET BY MOUTH EVERY 6 HOURS NEEDED ANXIETY 2021-02 00:00: 00 No TRELEGY ELLIPTA 100-62.5-25 MCG/ACT AEPB 1 2-15 00:00: 00 No Dose Unknown 1 2-15 00:00: 00 No ESZOPICLONE 2 MG TABS 1 2-15 00:00: 00 No TAKE 1 TABLET BY MOUTH EVERY DAY 1 2-15 00:00: 00 No Dose Unknown 2021-02 2-15 00:00: 00 No SYMBICORT 160-4.5 MCG/ACT AERO 1 2-15 00:00: 00 No Dose Unknown 2021-02 2-15 00:00: 00 No Dose Unknown 2021-02 2-15 00:00: 00 No Dose Unknown 2021-02 2-15 00:00: 00 No TAKE 1 TABLET BY MOUTH EVERY DAY 1 2-15 00:00: 00 No TAKE 1 TABLET BY MOUTH EVERY DAY FOR 90 DAYS 0 9-13 00:00: 00 No TAKE 1 TABLET BY MOUTH EVERY DAY FOR 90 DAYS 0 8-12 00:00: 00 No 10 TAKE 1 TABLET BY MOUTH EVERY DAY FOR 90 DAYS 0 8-12 00:00: 00 No 10 TAKE 1 TABLET BY MOUTH EVERY DAY FOR 90 DAYS 0 7- 00:00: 00 No 20 TAKE 1 TABLET BY MOUTH EVERY DAY FOR 90 DAYS 0 7- 00:00: 00 No 20 Lexapro 5 mg tablet 0 - 00:00: 00 No 1mg hydroxyzine HCl 25 mg tablet 0 - 00:00: 00 No 1mg Effexor XR 75 mg capsule,ext ended release 0 - 00:00: 00 No 1mg Effexor XR 150 mg capsule,ext ended release 0 08-30 00:00: 00 No 1mg TAKE 1 TABLET BY MOUTH EVERY DAY FOR 30 DAYS 0 - 00:00: 00 No 25 INHALE 1 PUFF BY MOUTH EVERY DAY 0 - 00:00: 00 No Dose Unknown 0 - 00:00: 00 No Dose Unknown 0 - 00:00: 00 No Dose Unknown 0 - 00:00: 00 No TAKE 1 TABLET BY MOUTH EVERY DAY FOR 30 DAYS 0 7-13 00:00: 00 No 25 INHALE 1 PUFF BY MOUTH EVERY DAY 2021-0 7-13 00:00: 00 No Singulair 10 mg tablet 0 6-27 00:00: 00 No 1mg Dose Unknown 0 6-27 00:00: 00 No Symbicort 160 mcg-4.5 mcg/actuati on HFA aerosol inhaler 0 6-16 00:00: 00 No 2mcg/ac tuation ProAir HFA 90 mcg/actuati on aerosol inhaler 0 6-16 00:00: 00 No 1mcg/ac tuation Dose Unknown 0 6-16 00:00: 00 No venlafaxine ER 225 mg tablet,exte nded release 24 hr 0 5-13 00:00: 00 No 1mg hydroxyzine HCl 25 mg tablet 0 5-13 00:00: 00 No 1mg Dose Unknown 0 5-13 00:00: 00 No Dose Unknown 0 5-13 00:00: 00 No Dose Unknown 0 4-14 00:00: 00 No Dose Unknown 0 4-14 00:00: 00 No Dose Unknown 0 4-14 00:00: 00 No Dose Unknown 0 4-14 00:00: 00 No ProAir HFA 90 mcg/actuati on aerosol inhaler 0 3-18 00:00: 00 No 1mcg/ac tuation prednisone 20 mg tablet 0 3-18 00:00: 00 No mg ipratropium 0.5 mg-albutero l 3 mg (2.5 mg base)/3 mL nebulizatio n soln 0 3-18 00:00: 00 No 3mg base)/3 mL Dose Unknown 0 3-18 00:00: 00 No prednisone 20 mg tablet 0 3-18 00:00: 00 No mg USE 1 UNIT DOSE IN NEBULIZER EVERY 4 HOURS NEEDED. 0 3-18 00:00: 00 No Dose Unknown 0 3-17 00:00: 00 No Dose Unknown 0 3-17 00:00: 00 No Dose Unknown 0 3-17 00:00: 00 No Dose Unknown 2021-0 3-17 00:00: 00 No Dose Unknown 2021-0 3-17 00:00: 00 No Dose Unknown 2021-0 3-17 00:00: 00 No Dose Unknown 2021-0 2-21 00:00: 00 No Dose Unknown 0 2-21 00:00: 00 No Dose Unknown 2021-0 2-21 00:00: 00 No Dose Unknown 0 2-21 00:00: 00 No Dose Unknown 0 2-17 00:00: 00 No Dose Unknown 0 2-17 00:00: 00 No Dose Unknown 0 2-17 00:00: 00 No venlafaxine ER 150 mg capsule,ext ended release 24 hr 0 2-17 00:00: 00 No 1mg Dose Unknown 0 1-19 00:00: 00 No Dose Unknown 0 1-19 00:00: 00 No Dose Unknown 0 1-19 00:00: 00 No Dose Unknown 0 1-19 00:00: 00 No hydroxyzine HCl 25 mg tablet 2020-02 2- 00:00: 00 No 1mg venlafaxine ER 150 mg capsule,ext ended release 24 hr 2020-02 2- 00:00: 00 No 1mg hydroxyzine HCl 25 mg tablet 2020-02 2- 00:00: 00 No 1mg venlafaxine ER 150 mg capsule,ext ended release 24 hr 2020-02 2- 00:00: 00 No 1mg prednisone 20 mg tablet 2020-02 2 00:00: 00 No mg Dose Unknown 2020-02 2- 00:00: 00 No Dose Unknown 2020-02 2- 00:00: 00 No Singulair 10 mg tablet 2020-02 2- 00:00: 00 No 1mg prednisone 20 mg tablet 2020-02 2 00:00: 00 No mg Effexor XR 75 mg capsule,ext ended release 2020-02 2- 00:00: 00 No 1mg Symbicort 160 mcg-4.5 mcg/actuati on HFA aerosol inhaler 2020-02 2- 00:00: 00 No 2mcg/ac tuation Dose Unknown 2020-02- 00:00: 00 No ProAir HFA 90 mcg/actuati on aerosol inhaler 2020-02- 00:00: 00 No 1mcg/ac tuation prednisone 20 mg tablet 2020-02 0- 00:00: 00 No 2mg Dose Unknown 2020-02 0- 00:00: 00 No prednisone 20 mg tablet 2020-02 0- 00:00: 00 No 2mg levofloxaci n 500 mg tablet 2020-02 0- 00:00: 00 No 1mg prednisone 20 mg tablet 2020-02 0-04 00:00: 00 No 2mg Dose Unknown 2020-02 0-04 00:00: 00 No prednisone 20 mg tablet 2020-02 0- 00:00: 00 No 2mg azithromyci n 250 mg tablet 2020-02 0- 00:00: 00 No mg Tessalon Perles 100 mg capsule 2020-02 0- 00:00: 00 No 1mg Dose Unknown 9- 00:00: 00 No ProAir HFA 90 mcg/actuati on aerosol inhaler 9- 00:00: 00 No 1mcg/ac tuation prednisone 20 mg tablet 8- 00:00: 00 No 2mg Dose Unknown 8- 00:00: 00 No prednisone 20 mg tablet 8- 00:00: 00 No 2mg levofloxaci n 500 mg tablet 8- 00:00: 00 No 1mg Zithromax 250 mg tablet 7- 00:00: 00 No mg ProAir HFA 90 mcg/actuati on aerosol inhaler 7- 00:00: 00 No 1mcg/ac tuation ProAir HFA 90 mcg/actuati on aerosol inhaler 7- 00:00: 00 No 1mcg/ac tuation Symbicort 160 mcg-4.5 mcg/actuati on HFA aerosol inhaler 6- 00:00: 00 No 2mcg/ac tuation Symbicort 160 mcg-4.5 mcg/actuati on HFA aerosol inhaler 5-03 00:00: 00 No 2mcg/ac tuation ProAir HFA 90 mcg/actuati on aerosol inhaler 06-20 00:00: 00 No 1mcg/ac tuation Augmentin 875 mg-125 mg tablet 06-20 00:00: 00 No 1mg Dose Unknown 06-20 00:00: 00 No Effexor XR 75 mg capsule,ext ended release 06-20 00:00: 00 No 1mg Symbicort 160 mcg-4.5 mcg/actuati on HFA aerosol inhaler 06-20 00:00: 00 No 2mcg/ac tuation ProAir HFA 90 mcg/actuati on aerosol inhaler 06-20 00:00: 00 No 1mcg/ac tuation Augmentin 875 mg-125 mg tablet 06-20 00:00: 00 No 1mg hydroxyzine HCl 50 mg tablet 06-20 00:00: 00 No 1mg Effexor XR 75 mg capsule,ext ended release 06-20 00:00: 00 No 1mg ProAir HFA 90 mcg/actuati on aerosol inhaler 06-09 00:00: 00 No 1mcg/ac tuation ProAir HFA 90 mcg/actuati on aerosol inhaler 06-09 00:00: 00 No 1mcg/ac tuation apixaban 5 mg tablet 08 13:00: 39 Yes 5mg Take 5 mg by mouth 2 (two) times daily. [facility] prednisone 20 mg tablet - 00:00: 00 No 2mg levofloxaci n 500 mg tablet - 00:00: 00 No 1mg prednisone 20 mg tablet - 00:00: 00 No 2mg levofloxaci n 500 mg tablet - 00:00: 00 No 1mg ProAir HFA 90 mcg/actuati on aerosol inhaler 2-19 00:00: 00 No 1mcg/ac tuation ipratropium 0.5 mg-albutero l 3 mg (2.5 mg base)/3 mL nebulizatio n soln 2-19 00:00: 00 No 3mg base)/3 mL ProAir HFA 90 mcg/actuati on aerosol inhaler 2-19 00:00: 00 No 1mcg/ac tuation ipratropium 0.5 mg-albutero l 3 mg (2.5 mg base)/3 mL nebulizatio n soln 2-19 00:00: 00 No 3mg base)/3 mL ProAir HFA 90 mcg/actuati on aerosol inhaler 2- 00:00: 00 No 1mcg/ac tuation ProAir HFA 90 mcg/actuati on aerosol inhaler 2 00:00: 00 No 1mcg/ac tuation ProAir HFA 90 mcg/actuati on aerosol inhaler 2019-02 2 00:00: 00 No 1mcg/ac tuation montelukast 10 mg tablet 2019-02 2 00:00: 00 No 1mg ProAir HFA 90 mcg/actuati on aerosol inhaler 2019-02 2 00:00: 00 No 1mcg/ac tuation montelukast 10 mg tablet 2019-02 00:00: 00 No 1mg Effexor XR 75 mg capsule,ext ended release 9 00:00: 00 No 1mg Effexor XR 75 mg capsule,ext ended release 9 00:00: 00 No 1mg ProAir HFA 90 mcg/actuati on aerosol inhaler 8-17 00:00: 00 No 1mcg/ac tuation ProAir HFA 90 mcg/actuati on aerosol inhaler 817 00:00: 00 No 1mcg/ac tuation Effexor XR 75 mg capsule,ext ended release 8-11 00:00: 00 No 1mg Effexor XR 75 mg capsule,ext ended release 8- 00:00: 00 No 1mg prednisone 20 mg tablet 09-15 00:00: 00 No 2mg Bromfed DM 2 mg-30 mg-10 mg/5 mL oral syrup - 00:00: 00 No 75mg/5 mL prednisone 20 mg tablet 09-15 00:00: 00 No 2mg Bromfed DM 2 mg-30 mg-10 mg/5 mL oral syrup 09-15 00:00: 00 No 75mg/5 mL prednisone 20 mg tablet 09-08 00:00: 00 No 1mg furosemide 20 mg tablet 09-08 00:00: 00 No 1mg diclofenac sodium 75 mg tablet,yeni yed release 09-08 00:00: 00 No 1mg prednisone 20 mg tablet 09-08 00:00: 00 No 1mg furosemide 20 mg tablet 09-08 00:00: 00 No 1mg diclofenac sodium 75 mg tablet,yeni yed release 09-08 00:00: 00 No 1mg Symbicort 160 mcg-4.5 mcg/actuati on HFA aerosol inhaler 08-04 00:00: 00 No 2mcg/ac tuation Symbicort 160 mcg-4.5 mcg/actuati on HFA aerosol inhaler 08-04 00:00: 00 No 2mcg/ac tuation Trelegy Ellipta 100 mcg-62.5 mcg-25 mcg powder for inhalation 07-28 00:00: 00 No 1mcg Trelegy Ellipta 100 mcg-62.5 mcg-25 mcg powder for inhalation 07-28 00:00: 00 No 1mcg bupropion HCl XL 150 mg 24 hr tablet, extended release 07-14 00:00: 00 No 1mg buspirone 10 mg tablet 07-14 00:00: 00 No 1mg montelukast 10 mg tablet 07-14 00:00: 00 No 1mg albuterol sulfate 2.5 mg/3 mL (0.083 %) solution for nebulizatio n 07-14 00:00: 00 No 3/3 mL (0.083 %) bupropion HCl XL 150 mg 24 hr tablet, extended release 07-14 00:00: 00 No 1mg buspirone 10 mg tablet 07-14 00:00: 00 No 1mg montelukast 10 mg tablet 07-14 00:00: 00 No 1mg albuterol sulfate 2.5 mg/3 mL (0.083 %) solution for nebulizatio n 2019-0 5-27 00:00: 00 No 3/3 mL (0.083 %) ProAir HFA 90 mcg/actuati on aerosol inhaler 0 2-19 00:00: 00 No 1mcg/ac tuation Trelegy Ellipta 100 mcg-62.5 mcg-25 mcg powder for inhalation 0 2-19 00:00: 00 No 1mcg ProAir HFA 90 mcg/actuati on aerosol inhaler 0 2-19 00:00: 00 No 1mcg/ac tuation Trelegy Ellipta 100 mcg-62.5 mcg-25 mcg powder for inhalation 0 2-19 00:00: 00 No 1mcg bupropion HCl XL 150 mg 24 hr tablet, extended release 0 2-12 00:00: 00 No 1mg bupropion HCl XL 150 mg 24 hr tablet, extended release 0 2-12 00:00: 00 No 1mg buspirone 10 mg tablet 0 2-12 00:00: 00 No 1mg montelukast 10 mg tablet 0 2-12 00:00: 00 No 1mg benzonatate 100 mg capsule 2019-0 2-12 00:00: 00 No 12mg buspirone 10 mg tablet 0 2-12 00:00: 00 No 1mg montelukast 10 mg tablet 0 2-12 00:00: 00 No 1mg benzonatate 100 mg capsule 2019-0 2-12 00:00: 00 No 12mg Spiriva with HandiHaler 18 mcg and inhalation capsules 2019-0 2-07 00:00: 00 No 1mcg Spiriva with HandiHaler 18 mcg and inhalation capsules 0 2-07 00:00: 00 No 1mcg Spiriva Respimat 2.5 mcg/actuati on solution for inhalation 0 2-06 00:00: 00 No 1mcg/ac tuation Spiriva Respimat 2.5 mcg/actuati on solution for inhalation 0 2-06 00:00: 00 No 1mcg/ac tuation ProAir HFA 90 mcg/actuati on aerosol inhaler 0 1-24 00:00: 00 No 1mcg/ac tuation albuterol sulfate 2.5 mg/3 mL (0.083 %) solution for nebulizatio n 03-13 00:00: 00 No 3/3 mL (0.083 %) ProAir HFA 90 mcg/actuati on aerosol inhaler 03-13 00:00: 00 No 1mcg/ac tuation albuterol sulfate 2.5 mg/3 mL (0.083 %) solution for nebulizatio n 03-13 00:00: 00 No 3/3 mL (0.083 %) Symbicort 160 mcg-4.5 mcg/actuati on HFA aerosol inhaler 2018-02 00:00: 00 No 2mcg/ac tuation ProAir HFA 90 mcg/actuati on aerosol inhaler 2018-02 00:00: 00 No 1mcg/ac tuation Advair Diskus 250 mcg-50 mcg/dose powder for inhalation 2018-02 00:00: 00 No 1mcg/do se prednisone 20 mg tablet 2018-02 00:00: 00 No 1mg montelukast 10 mg tablet 2018-02 00:00: 00 No 1mg indomethaci n 50 mg capsule 2018-02 00:00: 00 No 1mg gabapentin 300 mg capsule 2018-02 00:00: 00 No 1mg Symbicort 160 mcg-4.5 mcg/actuati on HFA aerosol inhaler 2018-02 00:00: 00 No 2mcg/ac tuation ProAir HFA 90 mcg/actuati on aerosol inhaler 2018-02 00:00: 00 No 1mcg/ac tuation Advair Diskus 250 mcg-50 mcg/dose powder for inhalation 2018-02 00:00: 00 No 1mcg/do se prednisone 20 mg tablet 2018-02 00:00: 00 No 1mg montelukast 10 mg tablet 2018-02 00:00: 00 No 1mg indomethaci n 50 mg capsule 2018-02 00:00: 00 No 1mg gabapentin 300 mg capsule 2018-02 00:00: 00 No 1mg prednisone 20 mg tablet 2018-02 00:00: 00 No mg benzonatate 200 mg capsule 2018-02 00:00: 00 No 1mg Bromfed DM 2 mg-30 mg-10 mg/5 mL oral syrup 2018-02 00:00: 00 No 5mg/5 mL albuterol sulfate 2.5 mg/3 mL (0.083 %) solution for nebulizatio n 2018-02 00:00: 00 No 1/3 mL (0.083 %) Symbicort 160 mcg-4.5 mcg/actuati on HFA aerosol inhaler 2018-02 00:00: 00 No 2mcg/ac tuation ProAir HFA 90 mcg/actuati on aerosol inhaler 2018-02 00:00: 00 No 1mcg/ac tuation Trelegy Ellipta 100 mcg-62.5 mcg-25 mcg powder for inhalation 2018-02 00:00: 00 No 1mcg citalopram 40 mg tablet 2018-02 00:00: 00 No 1mg Seroquel 25 mg tablet 2018-02 00:00: 00 No 1mg prednisone 20 mg tablet 2018-02 00:00: 00 No mg benzonatate 200 mg capsule 2018-02 00:00: 00 No 1mg Bromfed DM 2 mg-30 mg-10 mg/5 mL oral syrup 2018-02 00:00: 00 No 5mg/5 mL albuterol sulfate 2.5 mg/3 mL (0.083 %) solution for nebulizatio n 2018-02 00:00: 00 No 1/3 mL (0.083 %) Symbicort 160 mcg-4.5 mcg/actuati on HFA aerosol inhaler 2018-02 00:00: 00 No 2mcg/ac tuation ProAir HFA 90 mcg/actuati on aerosol inhaler 2018-02 00:00: 00 No 1mcg/ac tuation Trelegy Ellipta 100 mcg-62.5 mcg-25 mcg powder for inhalation 2018-02 00:00: 00 No 1mcg citalopram 40 mg tablet 2018-02 00:00: 00 No 1mg Seroquel 25 mg tablet 2018-02 00:00: 00 No 1mg predniSONE 50 mg tablet 02-26 00:00: 00 05-31 00:00 :00 No 50mg Take 1 tablet by mouth daily. 5 tabs once daily for 3 days 4 tabs once daily for 3 days 3 tabs once daily for 3 days 2 tabs once daily for 3 days 1 tab once daily for 3 days [facility] clonazePAM 0.5 mg tablet 02-25 00:00: 00 Yes .5mg Take 1 tablet by mouth 3 (three) times daily. [facility] ipratropium -albuterol 0.5 mg-3 mg(2.5 mg base)/3 mL nebulizer solution 02-25 00:00: 00 Yes 3mL Inhale 3 mL 4 (four) times daily as needed for Wheezing. [facility] Vital Signs Vital Name Observation Time Observation Value Comments S ource Oxygen saturation in Arterial blood by Pulse oximetry 2022-05-31 17:50:00 95 /min [facility] Systolic blood pressure 2022-05-31 17:45:00 115 mm[Hg] [facility] Diastolic blood pressure 2022-05-31 17:45:00 52 mm[Hg] [facility] Respiratory rate 2022-05-31 17:45:00 20 /min [facility] Heart rate 2022-05-31 17:23:00 84 /min [facility] Body temperature 2022-05-31 17:23:00 36.67 Arianna [facility] Body height 2022-05-25 18:00:00 162.6 cm [facility] Body weight 2022-05-25 18:00:00 92.08 kg [facility] BMI 2022-05-25 18:00:00 34.84 kg/m2 [facility] Systolic blood pressure 2022-05-31 15:31:00 122 mm[Hg] [facility] Diastolic blood pressure 2022-05-31 15:31:00 57 mm[Hg] [facility] Heart rate 2022-05-31 15:31:00 88 /min [facility] 2022-05-31 15:31:00 18 /min [facility] Oxygen saturation in Arterial blood by Pulse oximetry 2022-05-31 15:31:00 99 /min [facility] Body temperature 2022-05-31 15:27:00 36.78 Arianna [facility] Body height 2022-05-25 18:00:00 162.6 cm [facility] Body weight 2022-05-25 18:00:00 92.08 kg [facility] BMI 2022-05-25 18:00:00 34.84 kg/m2 [facility] BP Systolic 2022-01-17 14:48:00 BP Diastolic [...] 16.00 /min Procedures Procedure Date / Time Performed Performing Clinician Source PHACOEMULSIFICATION OF CATARACT WITH INTRAOCULAR LENS IMPLANT 2022-05-31 16:49:00 Meche Lam [facility] PATIENT QUESTIONNAIRE 2022-05-31 05:01:00 Doctor Unassigned, [place] [facility] ASSIGNMENT OF BENEFITS 2022-05-22 21:36:19 Doctor Unassigned, [place] [facility] Plan of Care Planned Activity Planned Date Details Comments Source Goal Plan of Care Note [code = 32694-8] Goal Plan of Care Note [code = 22925-9] Goal Plan of Care Note [code = 06530-4] Goal Plan of Care Note [code = 37103-6] Goal Plan of Care Note [code = 90665-9] Goal Plan of Care Note [code = 43056-8] Goal Plan of Care Note [code = 62712-2] Goal Plan of Care Note [code = 87015-9] Goal Plan of Care Note [code = 86533-3] Goal Plan of Care Note [code = 40475-9] Goal Plan of Care Note [code = 20661-6] Goal Plan of Care Note [code = 29783-7] Goal Plan of Care Note [code = 95957-4] Goal Plan of Care Note [code = 40851-0] Goal Plan of Care Note [code = 61418-4] Goal Plan of Care Note [code = 49168-7] Goal Plan of Care Note [code = 56046-6] Goal Plan of Care Note [code = 39281-6] Goal Plan of Care Note [code = 28497-7] Goal Plan of Care Note [code = 30485-2] Goal Plan of Care Note [code = 66530-8] Goal Plan of Care Note [code = 00514-6] Goal Plan of Care Note [code = 19186-6] Goal Plan of Care Note [code = 73078-5] Goal Plan of Care Note [code = 10565-0] Goal Plan of Care Note [code = 71015-0] Goal Plan of Care Note [code = 58555-2] Goal Plan of Care Note [code = 21243-0] Goal Plan of Care Note [code = 85120-8] Goal Plan of Care Note [code = 82607-9] Goal Plan of Care Note [code = 01484-5] Goal Plan of Care Note [code = 04541-9] Goal Plan of Care Note [code = 62311-4] Goal Plan of Care Note [code = 49086-7] Goal Plan of Care Note [code = 76966-3] Goal Plan of Care Note [code = 45503-7] Goal Plan of Care Note [code = 82626-4] Goal Plan of Care Note [code = 67652-4] Goal Plan of Care Note [code = 51045-7] Goal Plan of Care Note [code = 18573-4] Goal Plan of Care Note [code = 64848-1] Goal Plan of Care Note [code = 97662-2] Goal Plan of Care Note [code = 12447-3] Goal Plan of Care Note [code = 38078-1] Goal Plan of Care Note [code = 75387-2] Goal Plan of Care Note [code = 06748-9] Goal Plan of Care Note [code = 12470-4] Goal Plan of Care Note [code = 46186-1] Goal Plan of Care Note [code = 22547-8] Goal Plan of Care Note [code = 76081-9] Encounters Start Date/Time End Date/Time Encounter Type Admission Type Attending Clinicians [facility] Facility Care Department Encounter ID Source 2020-12-18 11:16:09 Outpatient MECHE MEIER [facility] OPH [id number] [facility] 2023-06-17 09:40:00 2023-06-17 09:40:00 Outpatient [facility] [id number] [facility] 2023-05-13 13:25:28 2023-05-13 13:25:28 Outpatient [facility] [id number] Chris Brandt Chas 2023-04-26 10:16:22 2023-04-26 10:16:22 Outpatient SFA SFA [id number] Chris Rikki Chas 2023-03-29 13:20:36 2023-03-29 13:20:36 Outpatient SFA SFA [id number] Chris F Chas 2023-02-05 15:46:34 2023-02-05 15:46:34 Outpatient SFA SFA [id number] Chris F Chas 2022-11-15 08:28:38 2022-11-15 08:28:38 Outpatient SFA SFA [id number] Chris F Chas 2022-10-11 16:43:25 2022-10-11 16:43:25 Outpatient SFA SFA [id number] 0824 Chris F Chas 2022-09-07 13:43:12 2022-09-07 13:43:12 Outpatient [facility] [id number] Chris Doherty 2022-09-04 14:30:07 2022-09-04 14:30:07 Outpatient [facility] [id number] Chris Doherty 2022-05-31 10:13:00 2022-05-31 13:09:00 Outpatient R GENAROMECHE LITTLEJOHN [facility] OPH [id number] [facility] 2022-05-31 10:13:00 2022-05-31 13:09:00 Hospital Encounter Meche Lam [facility] 1.2.840.114 350.1.13.10 4.2.7.2.686 [id number] [facility] 2022-05-31 11:37:00 2022-05-31 12:12:00 Surgery GenaroMeche littlejohn [facility] 1.2.840.114 350.1.13.10 4.2.7.2.686 [id number] [facility] 2022-05-31 00:00:00 2022-05-31 00:00:00 Orders Only Doctor Unassigned, [place] [facility] 1.2.840.114 350.1.13.10 4.2.7.2.686 [id number] [facility] 2022-05-29 10:43:07 2022-05-29 10:43:07 Outpatient [facility] [id number] Chris Brandt Chas 2022-05-22 00:00:00 2022-05-22 00:00:00 Orders Only Doctor Unassigned, [place] [facility] 1.2.840.114 350.1.13.10 4.2.7.2.686 [id number] [facility] 2022-05-17 13:40:22 2022-05-17 13:40:22 Outpatient [facility] [id number] Chris Doherty 2022-04-18 13:53:40 2022-04-18 13:53:40 Outpatient [facility] [id number] Chris Doherty 2022-04-17 09:59:04 2022-04-17 09:59:04 Outpatient [facility] [id number] Chris Doherty 2022-03-10 12:17:29 2022-03-10 12:17:29 Outpatient [facility] [id number] Chris Doherty 2022-02-01 00:00:00 2022-02-01 00:00:00 Outpatient Visit [id number] 2021-10-04 00:00:00 2021-10-04 00:00:00 Outpatient Visit [id number] 2020-05-26 10:30:00 2020-05-26 12:59:00 Hospital Encounter Meche Lam [facility] 1.2.840.114 350.1.13.10 4.2.7.2.686 [id number] 2020-05-26 12:12:00 2020-05-26 12:48:00 Surgery [facility] 1.2.840.114 350.1.13.10 4.2.7.2.686 [id number] 020 [id number] 2020-05-26 12:09:00 2020-05-26 12:37:00 Anesthesia Event Bradley Elliott [facility] 1.2.840.114 350.1.13.10 4.2.7.2.686 [id number] 2020-05-25 10:21:30 2020-05-25 10:36:30 Laboratory Only Only, Adc Test [facility] 1.840.114 350.1.13.10 4.2.7.2.686 [id number] 2020-05-25 10:15:00 2020-05-25 10:15:00 Outpatient MECHE MEIER [facility] [id number] [facility] 2020-05-19 12:11:02 2020-05-19 12:26:02 Mending Carrier Visit Pob, Adc Lab Main [facility] 1.840.114 350.1.13.10 4.2.7.2.686 [id number] 2020-05-19 12:15:00 2020-05-19 12:15:00 Outpatient MECHE MEIER [facility] [id number] [facility] 2020-05-19 00:00:00 2020-05-19 00:00:00 Orders Only Doctor Unassigned, [place] [facility] 1..840.114 350.1.13.10 4.2.7.2.686 [id number] 2019-12-08 10:14:00 2019-12-08 10:14:00 Outpatient Jn Soliz [facility] [id number] [facility] Results Test Description Test Time Test Comments Results Result Co mments Source CULTURE, URINE 2022-11-17 08:54:12 SPECIMEN NUMBER: [id number] CULTURE, URINE SPECIMEN NUMBER: [id number] SPECIMEN COMMENT: URINE SOURCE: URINE REPORT STATUS: FINAL FINAL REPORT: 11/17/2022 50-100,000 CFU/ML UROGENITAL RICKEY PRESENT NO COMMON PATHOGENS UNLESS OTHERWISE INDICATED, ALL TESTING PERFORMED AT [facility] [address] [place] [address] ENGINEERING ILLUSTRATOR: CHRISTINA STEVENS M.D. CLIA NUMBER [id number] [facility] [place]. [id number] HEMOGLOBIN [id number] 02:57:56* Test Item Value Reference Range Interpretation Comme nts HEMOGLOBIN A1c (test code = 77483) 5.6 % 4.2-5.6 TSH, THIRD [id number] 05:54:28* Test Item Value Reference Range [facility] TSH, THIRD GENERATION (test code = 2821) 0.631 UIU/ML 0.400-4.100 HEMOGLOBIN [id number] 04:59:53* Test Item Value Reference Range Interpretation [facility] HEMOGLOBIN A1c (test code = 42335) 6.1 % 4.2-5.6 H [employer] GUIDELINES FOR HGB A1C: PREDIABETES/INCREASED RISK . . . . . . . 5.7-6.4% DIAGNOSIS OF DIABETES . . . . . . . . . >=6.5% WITH CONFIRMATION OR APPROPRIATE SYMPTOMS NOTE: ASSAY MAY BE AFFECTED BY HEMOGLOBINOPATHIES (SICKLE CELL ANEMIA, S-C DISEASE, OTHERS) OR ARTIFICIALLY LOWERED BY DECREASED RED CELL SURVIVAL (HEMOLYTIC ANEMIAS, BLOOD LOSS, ETC.). CONSIDER ALTERNATE TESTING OR LABORATORY CONSULTATION. COMPREHENSIVE METABOLIC [id number] 03:54:48* Test Item Value Reference Range Interpretation Comme nts GLUCOSE (test code = 2217) 101 MG/DL 70-99 H BUN (test code = 8) 20 MG/DL 6-20 CREATININE (test code = 2214) 0.99 MG/DL 0.60-1.30 eGFR (2020 CKD-EPI) (test code = 32032) 69 ML/MIN/1.73 >60 CALC BUN/CREAT (test code = 2235) 20 RATIO 6-28 SODIUM (test code = 2231) 144 MEQ/L 133-146 POTASSIUM (test code = 2228) 4.5 MEQ/L 3.5-5.4 CHLORIDE (test code = 2215) 101 MEQ/L 95-107 CARBON DIOXIDE (test code = 2206) 30 MEQ/L 19-31 CALCIUM (test code = 2209) 9.8 MG/DL 8.5-10.5 PROTEIN, TOTAL (test code = 222) 7.0 G/DL 6.1-8.3 ALBUMIN (test code = 2201) 4.4 G/DL 3.5-5.2 CALC GLOBULIN (test code = 2240) 2.6 G/DL 1.9-3.7 CALC A/G RATIO (test code = 2234) 1.7 RATIO 1.0-2.6 BILIRUBIN, TOTAL (test code = 2207) 0.3 MG/DL See_Comment [Automated me ssage] The system which generated this result transmitted reference range: <=1.2. The reference range was not used to interpret this result as normal/abnormal. ALKALINE PHOSPHATASE (test code = 2204) 80 U/L 40-132 AST (test code = 2218) 18 U/L 9-40 ALT (test code = 2219) 11 U/L 5-40 LIPID [id number] 03:54:48* Test Item Value Reference Range Interpretation Comme nts CHOLESTEROL (test code = 2210) 253 MG/DL <200 H TRIGLYCERIDES (test code = 2232) 164 MG/DL <150 H HDL CHOLESTEROL (test code = 2220) 94 MG/DL >39 CALC LDL CHOL (test code = 2237) 131 MG/DL <100 H NOTE: CALCULATED LDL IS BASED ON ZULEYMA-CISNEROS METHOD WHICHINCLUDES ADJUSTABLE TRIGLYCERIDE:VLDL CHOLESTEROL RATIO.THIS FACTOR VARIES BY MEASURED TRIGLYCERIDE AND NON-HDLCHOLESTEROL CONCENTRATIONS WITH INCREASED CALCULATED LDL SEENIN HIGHER TRIGLYCERIDE OR LOWER NON-HDL SPECIMENS. FOR MOREINFORMATION, SEE CLIENT ANNOUNCEMENT AT [email or web address] RATIO LDL/HDL (test code = 2238) 1.39 RATIO <3.22 [facility] has i mportant pathology staff changes effective 04/18/2022. New pathology staff will provide uninterrupted, excellent patient care and clinical consultation. See URL: [email or web address]. UNLESS OTHERWISE INDICATED, ALL TESTING PERFORMED AT [facility] [address] [place] [address] ENGINEERING ILLUSTRATOR: CHRISTINA STEVENS M.D. CLIA NUMBER [id number] [facility] [place]. [id number] CBC W/AUTO DIFF WITH [id number] 03:51:06* Test Item Value Reference Range Interpretation Comme nts WBC (test code = 1001) 9.6 K/UL 3.5-11.0 RBC (test code = 1002) 4.70 M/UL 3.80-5.40 HEMOGLOBIN (test code = 1003) 14.9 G/DL 11.5-15.5 HEMATOCRIT (test code = 1004) 44.1 % 34.0-45.0 MCV (test code = 1005) 93.8 fL 80.0-99.0 MCH (test code = 1006) 31.7 PG 25.0-33.0 MCHC (test code = 1007) 33.8 G/DL 31.0-36.0 RDW (test code = 1038) 12.5 % 11.5-15.0 NEUTROPHILS (test code = 1008) 77.6 % LYMPHOCYTES (test code = 1010) 18.3 % MONOCYTES (test code = 1011) 3.4 % EOSINOPHILS (test code = 1012) 0.0 % BASOPHILS (test code = 1013) 0.1 % IMMATURE GRANULOCYTES (test code = 1036) 0.6 % NUCLEATED RBCS (test code = 1065) 0.0 /100 WBC'S See_Comment [Automated messa ge] The system which generated this result transmitted reference range: 0.0. The reference range was not used to interpret this result as normal/abnormal. PLATELET COUNT (test code = 1015) 272 K/UL 130-400 ABSOLUTE NEUTROPHILS (test code = 1066) 7.42 K/UL 1.50-7.50 ABSOLUTE LYMPHOCYTES (test code = 1067) 1.75 K/UL 1.00-4.00 ABSOLUTE MONOCYTES (test code = 1068) 0.33 K/UL 0.20-1.00 ABSOLUTE EOSINOPHILS (test code = 1040) 0.00 K/UL 0.00-0.50 ABSOLUTE BASOPHILS (test code = 1069) 0.01 K/UL 0.00-0.20 ABS IMMATURE GRANULOCYTES (test code = 1020) 0.06 K/UL 0.00-0.10 ABS NUCLEATED RBCS (test code = 43589) 0.00 K/UL 0.00-0.11 OCCULT BLD,FECAL,IMMUNOASSAY [id number] 11:30:47* Test Item Value Reference Range Interpretation Comme nts OCCULT BLD, FECAL (test code = 28994) NEGATIVE NEGATIVE [facility] has important pathology staff changes effective 04/18/2022. New pathology staff will provide uninterrupted, excellent patient care and clinical consultation. See URL: [email or web address]. UNLESS OTHERWISE INDICATED, ALL TESTING PERFORMED AT [facility] [address] [place] [address] ENGINEERING ILLUSTRATOR: CHRISTINA STEVENS M.D. IA NUMBER [id number] [facility] [place]. [id number] RSV BY [id number] 00:00:00* Test Item Value Reference Range Interpretation Comme nts RSV BY DFA (test code = 76509) Negative SOURCE (test code = 98475) Not Provided RSV BY [id number] 00:00:00* Test Item Value Reference Range Interpretation Comme nts RSV BY DFA (test code = 67619) Negative SOURCE (test code = 52857) Not Provided RSV BY [id number] 00:00:00* Test Item Value Reference Range Interpretation Comme nts RSV BY DFA (test code = 92519) Negative SOURCE (test code = 65916) Not Provided RSV BY [id number] 00:00:00* Test Item Value Reference Range Interpretation Comme nts RSV BY DFA (test code = 91014) Negative SOURCE (test code = 76926) Not Provided SARS-CoV-2 (COVID-19) by RT-PCR (HIGH RISK)2020-11-23 00:00:00* Test Item Value Reference Range Interpretation Comme nts SARS-CoV-2 INTERPRETATION (t est code = 98838) NEGATIVE SOURCE (test code = 11758) NOT SPECIFIED SARS-CoV-2 (COVID-19) by RT-PCR (HIGH RISK)2020-11-23 00:00:00* Test Item Value Reference Range Interpretation Comme nts SARS-CoV-2 INTERPRETATION (t est code = 41563) NEGATIVE SOURCE (test code = 50681) NOT SPECIFIED SARS-CoV-2 (COVID-19) by RT-PCR (HIGH RISK)2020-11-23 00:00:00* Test Item Value Reference Range Interpretation Comme nts SARS-CoV-2 INTERPRETATION (t est code = 63863) NEGATIVE SOURCE (test code = 75946) NOT SPECIFIED SARS-CoV-2 (COVID-19) by RT-PCR (HIGH RISK)2020-11-23 00:00:00* Test Item Value Reference Range Interpretation Comme nts SARS-CoV-2 INTERPRETATION (t est code = 70878) NEGATIVE SOURCE (test code = 69445) NOT SPECIFIED [id number] 00:00:00* Test Item Value Reference Range Interpretation Comme nts TSH, THIRD GENERATION (test code = 2821) 1.080 UIU/ML [id number] 00:00:00* Test Item Value Reference Range Interpretation Comme nts TSH, THIRD GENERATION (test code = 2821) 1.080 UIU/ML [id number] 00:00:00* Test Item Value Reference Range Interpretation Comme nts TSH, THIRD GENERATION (test code = 2821) 1.080 UIU/ML CBC W/AUTO [id number] 00:00:00* Test Item Value Reference Range Interpretation Comme nts WBC (test code = 1001) 4.4 K/UL [...] = 1013) 0.9 % IMMATURE GRANULOCYTES (test code = 1036) 0.2 % NUCLEATED RBCS (test code = 1065) 0.0 /100WBC'S PLATELET COUNT (test code = 1015) 209 K/UL ABSOLUTE NEUTROPHILS (test c ode = 1066) 1.94 K/UL ABSOLUTE LYMPHOCYTES (test c ode = 1067) 1.89 K/UL ABSOLUTE MONOCYTES (test cod e = 1068) 0.39 K/UL ABSOLUTE EOSINOPHILS (test c ode = 1040) 0.11 K/UL ABSOLUTE BASOPHILS (test cod e = 1069) 0.04 K/UL ABS IMMATURE GRANULOCYTES (t est code = 1020) 0.01 K/UL ABS NUCLEATED RBCS (test cod e = 55724) 0.00 K/UL CBC W/AUTO [id number] 00:00:00* Test Item Value Reference Range Interpretation Comme nts WBC (test code = 1001) 4.4 K/UL [...] = 1013) 0.9 % IMMATURE GRANULOCYTES (test code = 1036) 0.2 % NUCLEATED RBCS (test code = 1065) 0.0 /100WBC'S PLATELET COUNT (test code = 1015) 209 K/UL ABSOLUTE NEUTROPHILS (test c ode = 1066) 1.94 K/UL ABSOLUTE LYMPHOCYTES (test c ode = 1067) 1.89 K/UL ABSOLUTE MONOCYTES (test cod e = 1068) 0.39 K/UL ABSOLUTE EOSINOPHILS (test c ode = 1040) 0.11 K/UL ABSOLUTE BASOPHILS (test cod e = 1069) 0.04 K/UL ABS IMMATURE GRANULOCYTES (t est code = 1020) 0.01 K/UL ABS NUCLEATED RBCS (test cod e = 18709) 0.00 K/UL CBC W/AUTO [id number] 00:00:00* Test Item Value Reference Range Interpretation Comme nts WBC (test code = 1001) 4.4 K/UL [...] = 1013) 0.9 % IMMATURE GRANULOCYTES (test code = 1036) 0.2 % NUCLEATED RBCS (test code = 1065) 0.0 /100WBC'S PLATELET COUNT (test code = 1015) 209 K/UL ABSOLUTE NEUTROPHILS (test c ode = 1066) 1.94 K/UL ABSOLUTE LYMPHOCYTES (test c ode = 1067) 1.89 K/UL ABSOLUTE MONOCYTES (test cod e = 1068) 0.39 K/UL ABSOLUTE EOSINOPHILS (test c ode = 1040) 0.11 K/UL ABSOLUTE BASOPHILS (test cod e = 1069) 0.04 K/UL ABS IMMATURE GRANULOCYTES (t est code = 1020) 0.01 K/UL ABS NUCLEATED RBCS (test cod e = 85760) 0.00 K/UL VITAMIN D, 25 [id number] 00:00:00* Test Item Value Reference Range Interpretation Comme [facility] VIT[facility] D, 25 OH (test code = 4958) 15 NG/ML VITAMIN D, 25 [id number] 00:00:00* Test Item Value Reference Range Interpretation Comme nts VITAMIN D, 25 OH (test code = 4958) 15 NG/ML [id number] 00:00:00* Test Item Value Reference Range Interpretation Comme nts TSH, THIRD GENERATION (test code = 2821) 1.080 UIU/ML [id number] 00:00:00* Test Item Value Reference Range Interpretation Comme nts TSH, THIRD GENERATION (test code = 2821) 1.080 UIU/ML [id number] 00:00:00* Test Item Value Reference Range Interpretation Comme nts TSH, THIRD GENERATION (test code = 2821) 1.080 UIU/ML CBC W/AUTO [id number] 00:00:00* Test Item Value Reference Range Interpretation Comme nts WBC (test code = 1001) 4.4 K/UL [...] = 1013) 0.9 % IMMATURE GRANULOCYTES (test code = 1036) 0.2 % NUCLEATED RBCS (test code = 1065) 0.0 /100WBC'S PLATELET COUNT (test code = 1015) 209 K/UL ABSOLUTE NEUTROPHILS (test c ode = 1066) 1.94 K/UL ABSOLUTE LYMPHOCYTES (test c ode = 1067) 1.89 K/UL ABSOLUTE MONOCYTES (test cod e = 1068) 0.39 K/UL ABSOLUTE EOSINOPHILS (test c ode = 1040) 0.11 K/UL ABSOLUTE BASOPHILS (test cod e = 1069) 0.04 K/UL ABS IMMATURE GRANULOCYTES (t est code = 1020) 0.01 K/UL ABS NUCLEATED RBCS (test cod e = 36154) 0.00 K/UL CBC W/AUTO [id number] 00:00:00* Test Item Value Reference Range Interpretation Comme nts WBC (test code = 1001) 4.4 K/UL [...] = 1013) 0.9 % IMMATURE GRANULOCYTES (test code = 1036) 0.2 % NUCLEATED RBCS (test code = 1065) 0.0 /100WBC'S PLATELET COUNT (test code = 1015) 209 K/UL ABSOLUTE NEUTROPHILS (test c ode = 1066) 1.94 K/UL ABSOLUTE LYMPHOCYTES (test c ode = 1067) 1.89 K/UL ABSOLUTE MONOCYTES (test cod e = 1068) 0.39 K/UL ABSOLUTE EOSINOPHILS (test c ode = 1040) 0.11 K/UL ABSOLUTE BASOPHILS (test cod e = 1069) 0.04 K/UL ABS IMMATURE GRANULOCYTES (t est code = 1020) 0.01 K/UL ABS NUCLEATED RBCS (test cod e = 48167) 0.00 K/UL CBC W/AUTO [id number] 00:00:00* Test Item Value Reference Range Interpretation Comme nts WBC (test code = 1001) 4.4 K/UL [...] = 1013) 0.9 % IMMATURE GRANULOCYTES (test code = 1036) 0.2 % NUCLEATED RBCS (test code = 1065) 0.0 /100WBC'S PLATELET COUNT (test code = 1015) 209 K/UL ABSOLUTE NEUTROPHILS (test c ode = 1066) 1.94 K/UL ABSOLUTE LYMPHOCYTES (test c ode = 1067) 1.89 K/UL ABSOLUTE MONOCYTES (test cod e = 1068) 0.39 K/UL ABSOLUTE EOSINOPHILS (test c ode = 1040) 0.11 K/UL ABSOLUTE BASOPHILS (test cod e = 1069) 0.04 K/UL ABS IMMATURE GRANULOCYTES (t est code = 1020) 0.01 K/UL ABS NUCLEATED RBCS (test cod e = 44287) 0.00 K/UL VITAMIN D, 25 [id number] 00:00:00* Test Item Value Reference Range Interpretation Comme nts VITAMIN D, 25 OH (test code = 4958) 15 NG/ML VITAMIN D, 25 [id number] 00:00:00* Test Item Value Reference Range Interpretation Comme nts VITAMIN D, 25 OH (test code = 4958) 15 NG/ML SARS-COV-2 (COVID19), NAAT [ADDED]2020-03-04 00:00:00* Test Item Value Reference Range Interpretation Comme nts SARS-CoV-2 INTERPRETATION (t est code = 02387) POSITIVE SOURCE (test code = 50174) NOT SPECIFIED SARS-COV-2 (COVID19), NAAT [ADDED]2020-03-04 00:00:00* Test Item Value Reference Range Interpretation Comme nts SARS-CoV-2 INTERPRETATION (t est code = 74588) POSITIVE SOURCE (test code = 24177) NOT SPECIFIED SARS-COV-2 (COVID19), NAAT [ADDED]2020-03-04 00:00:00* Test Item Value Reference Range Interpretation Comme nts SARS-CoV-2 INTERPRETATION (t est code = 10954) POSITIVE SOURCE (test code = 51548) NOT SPECIFIED SARS-COV-2 (COVID19), NAAT [ADDED]2020-03-04 00:00:00* Test Item Value Reference Range Interpretation Comme nts SARS-CoV-2 INTERPRETATION (t est code = 69796) POSITIVE SOURCE (test code = 56135) NOT SPECIFIED - XR CHEST 2 [id number] 11:11:00 [facility] 1970 Sex: F FAX: Jn Barton MD [phone] [place]: [address]: REG Name: AMADA RIVERA [facility] : 1970 Age/S: 49/F [address] [place] [address] Unit #: [id number] Loc: [place] [address] Phys: Jn Barrios MD Acct: [id number] Dis Date: Status: REG CLI PHONE #: [phone] Exam Date: 12/08/2019 1111 FAX #: [phone] Reason: R06.02, SHORTNESS OF BREATH. EXAMS: CPT CODE: [id number] XR CHEST 2 V 10001 CLINICAL HISTORY: R06.02, SHORTNESS OF BREATH. COMPARISON: NONE PA and lateral films of the chest demonstratethat heart size is normal. Lung kaur are clear. No evidence of pneumonia or congestive failure is seen. Regional skeletal structures demonstrate no acute abnormality. IMPRESSION: No evidence of pneumonia or congestive failure is seen. at 1111 Reported and signed by: Kurt Ortega M.D. CC: Jn Barrios MD Technologist: RT Gomez(R) Trnscrd Date/Time/By: 12/08/2019 (1111) : By: HiralYOS Orig Print D/T: S: 12/08/2019 (1418) PAGE 1 Signed SucautUVYN-FyD-9 (COVID-19) by RT-PCR (HIGH RISK)2019-09-18 00:00:00* Test Item Value Reference Range Interpretation Comme nts SARS-CoV-2 INTERPRETATION (t est code = 74698) NEGATIVE SOURCE (test code = 54380) NOT SPECIFIED SARS-CoV-2 (COVID-19) by RT-PCR (HIGH RISK)2019-09-18 00:00:00* Test Item Value Reference Range Interpretation Comme nts SARS-CoV-2 INTERPRETATION (t est code = 03324) NEGATIVE SOURCE (test code = 22248) NOT SPECIFIED SARS-CoV-2 (COVID-19) by RT-PCR (HIGH RISK)2019-09-18 00:00:00* Test Item Value Reference Range Interpretation Comme nts SARS-CoV-2 INTERPRETATION (t est code = 06853) NEGATIVE SOURCE (test code = 17020) NOT SPECIFIED SARS-CoV-2 (COVID-19) by RT-PCR (HIGH RISK)2019-09-18 00:00:00* Test Item Value Reference Range Interpretation Comme nts SARS-CoV-2 INTERPRETATION (t est code = 75607) NEGATIVE SOURCE (test code = 56837) NOT SPECIFIED CBC W/AUTO [id number] 00:00:00* Test Item Value Reference Range Interpretation Comme nts WBC (test code = 1001) 5.5 K/UL [...] code = 1015) 223 K/UL CBC W/AUTO [id number] 00:00:00* Test Item Value Reference Range Interpretation Comme nts WBC (test code = 1001) 5.5 K/UL [...] code = 1015) 223 K/UL CBC W/AUTO [id number] 00:00:00* Test Item Value Reference Range Interpretation Comme nts WBC (test code = 1001) 5.5 K/UL [...] code = 1015) 223 K/UL COMPREHENSIVE METABOLIC [id number] 00:00:00* Test Item Value Reference Range Interpretation Comme nts GLUCOSE (test code = 2217) 83 MG/DL BUN (test code = 2208) 17 MG/DL CREATININE (test code = 2214) 0.96 MG/DL eGFR AMER. (test cod e = 09738) 80 ML/MIN/1.73 eGFR NON- AMER. (test code = 53844) 69 ML/MIN/1.73 CALC BUN/CREAT (test code = 2235) 18 RATIO SODIUM (test code = 2231) 145 MEQ/L POTASSIUM (test code = 2228) 4.1 MEQ/L CHLORIDE (test code = 2215) 106 MEQ/L CARBON DIOXIDE (test code = 2206) 28 MEQ/L CALCIUM (test code = 2209) 9.5 MG/DL PROTEIN, TOTAL (test code = 2229) 6.8 G/DL ALBUMIN (test code = 2201) 4.2 G/DL CALC GLOBULIN (test code = 2240) 2.6 G/DL CALC A/G RATIO (test code = 2234) 1.6 RATIO BILIRUBIN, TOTAL (test code = 2207) 0.3 MG/DL ALKALINE PHOSPHATASE (test code = 2204) 93 U/L AST (test code = 2218) 35 U/L ALT (test code = 2219) 15 U/L COMPREHENSIVE METABOLIC [id number] 00:00:00* Test Item Value Reference Range Interpretation Comme nts GLUCOSE (test code = 2217) 83 MG/DL BUN (test code = 2208) 17 MG/DL CREATININE (test code = 2214) 0.96 MG/DL eGFR AMER. (test cod e = 37821) 80 ML/MIN/1.73 eGFR NON- AMER. (test code = 91256) 69 ML/MIN/1.73 CALC BUN/CREAT (test code = 2235) 18 RATIO SODIUM (test code = 2231) 145 MEQ/L POTASSIUM (test code = 2228) 4.1 MEQ/L CHLORIDE (test code = 2215) 106 MEQ/L CARBON DIOXIDE (test code = 2206) 28 MEQ/L CALCIUM (test code = 2209) 9.5 MG/DL PROTEIN, TOTAL (test code = 2229) 6.8 G/DL ALBUMIN (test code = 2201) 4.2 G/DL CALC GLOBULIN (test code = 2240) 2.6 G/DL CALC A/G RATIO (test code = 2234) 1.6 RATIO BILIRUBIN, TOTAL (test code = 2207) 0.3 MG/DL ALKALINE PHOSPHATASE (test code = 2204) 93 U/L AST (test code = 2218) 35 U/L ALT (test code = 2219) 15 U/L CBC W/AUTO [id number] 00:00:00* Test Item Value Reference Range Interpretation Comme nts WBC (test code = 1001) 5.5 K/UL [...] code = 1015) 223 K/UL CBC W/AUTO [id number] 00:00:00* Test Item Value Reference Range Interpretation Comme nts WBC (test code = 1001) 5.5 K/UL [...] code = 1015) 223 K/UL CBC W/AUTO [id number] 00:00:00* Test Item Value Reference Range Interpretation Comme nts WBC (test code = 1001) 5.5 K/UL [...] code = 1015) 223 K/UL COMPREHENSIVE METABOLIC [id number] 00:00:00* Test Item Value Reference Range Interpretation Comme nts GLUCOSE (test code = 2217) 83 MG/DL BUN (test code = 2208) 17 MG/DL CREATININE (test code = 2214) 0.96 MG/DL eGFR AMER. (test cod e = 31139) 80 ML/MIN/1.73 eGFR NON- AMER. (test code = 72943) 69 ML/MIN/1.73 CALC BUN/CREAT (test code = 2235) 18 RATIO SODIUM (test code = 2231) 145 MEQ/L POTASSIUM (test code = 2228) 4.1 MEQ/L CHLORIDE (test code = 2215) 106 MEQ/L CARBON DIOXIDE (test code = 2206) 28 MEQ/L CALCIUM (test code = 2209) 9.5 MG/DL PROTEIN, TOTAL (test code = 2229) 6.8 G/DL ALBUMIN (test code = 2201) 4.2 G/DL CALC GLOBULIN (test code = 2240) 2.6 G/DL CALC A/G RATIO (test code = 2234) 1.6 RATIO BILIRUBIN, TOTAL (test code = 2207) 0.3 MG/DL ALKALINE PHOSPHATASE (test code = 2204) 93 U/L AST (test code = 2218) 35 U/L ALT (test code = 2219) 15 U/L COMPREHENSIVE METABOLIC [id number] 00:00:00* Test Item Value Reference Range Interpretation Comme nts GLUCOSE (test code = 2217) 83 MG/DL BUN (test code = 2208) 17 MG/DL CREATININE (test code = 2214) 0.96 MG/DL eGFR AMER. (test cod e = 34129) 80 ML/MIN/1.73 eGFR NON- AMER. (test code = 92179) 69 ML/MIN/1.73 CALC BUN/CREAT (test code = 2235) 18 RATIO SODIUM (test code = 2231) 145 MEQ/L POTASSIUM (test code = 2228) 4.1 MEQ/L CHLORIDE (test code = 2215) 106 MEQ/L CARBON DIOXIDE (test code = 2206) 28 MEQ/L CALCIUM (test code = 2209) 9.5 MG/DL PROTEIN, TOTAL (test code = 2229) 6.8 G/DL ALBUMIN (test code = 2201) 4.2 G/DL CALC GLOBULIN (test code = 2240) 2.6 G/DL CALC A/G RATIO (test code = 2234) 1.6 RATIO BILIRUBIN, TOTAL (test code = 2207) 0.3 MG/DL ALKALINE PHOSPHATASE (test code = 2204) 93 U/L AST (test code = 2218) 35 U/L ALT (test code = 2219) 15 U/L
[2023-06-17] MEDS ORDERED: ALBUTEROL 2.5 MG/3 ML NEB SOL ONE (18:18)
[2023-06-17] MEDS ORDERED: METHYLPREDNISOLONE 125 MG INJ ONE (18:19)
[2023-06-17] MEDS ORDERED: IPRATROPIUM BROM 0.5MG/2.5ML ONE (18:19)
[2023-06-17 18:26] LABS: Absolute Lymphocytes (CBC) 0.9 K/uL (0.7-4.9); Absolute Monocytes 0.1 K/uL (0.1-1.3); Absolute Neutrophil 4.3 K/uL (1.8-8.0); Basophils % 0.7 % (0-1.3); Eosinophils % 0.5 % (0-4.4); Hematocrit 38.5 % (36.0-45.0); Hemoglobin 13.2 g/dL (12.0-15.0); Lymphocytes % 15.9 % (15.3-44.8); MCH 32.6 pg (27.0-35.0); MCHC 34.3 g/dL (32.0-36.0); MCV 94.9 fL (80-100); MPV 6.7 fL (7.6-11.3); Monocytes % 2.1 % (3.3-12.3); Neutrophils % 80.8 % (41.7-73.7); Nucleated Red Blood Cells % 0.2 % (0-0); Platelets 223 thou/uL (152-406); RBC Red Blood Cell Count 4.06 M/uL (3.86-4.86); Red Cell Distribution Width 14.5 % (12.1-15.2)
[2023-06-17 18:34] LABS: PT Prothrombin Time 12.6 SECONDS (9.5-12.5); Protime INR 1.15
[2023-06-17 18:45] LABS: Albumin 2.9 g/dL (3.4-5.0); Albumin/Globulin Ratio 0.8 (1.1-1.8); Anion Gap 7.8 mEq/L (5.0-15.0); Bilirubin Direct 0.1 mg/dL (0-0.2); Bilirubin Indirect, Calculated 0.4 mg/dL (0.2-0.8); Bilirubin Total 0.5 mg/dL (0.2-1.0); Globulin 3.7 g/dL (2.3-3.5); Magnesium 2.1 mg/dL (1.6-2.4); Potassium 3.8 mEq/L (3.5-5.1); Protein, Total 6.6 g/dL (6.4-8.2)
[2023-06-17 19:52] LABS: Specific Gravity > 1.030 (1.005-1.030)
[2023-06-17 19:57] LABS: Specific Gravity > 1.030 (1.005-1.030); Sqamous Epithelial <5 /HPF (None Seen); Urine Bacteria None Seen /HPF (<20); Urine Bilirubin NEGATIVE (Negative); Urine Blood Negative (Negative); Urine Clarity Clear (Clear); Urine Color Light-Yellow (Yellow); Urine Culture Reflex Order NOT NEEDED; Urine Glucose TRACE (Negative); Urine Ketones NEGATIVE (Negative); Urine Micro Reflex YN NO BILL MICROSCOPIC; Urine Nitrite NEGATIVE (Negative); Urine Protein NEGATIVE (Negative); Urine Urobilinogen Normal (Normal); Urine WBC None Seen /HPF (<5)
--- NOTE | 2023-06-17 20:33 | RAD REPORT ---
EXAM DESCRIPTION: CT - Chest For Pe Angio - 06/17/2023 7:14 pm CLINICAL HISTORY: SOB COMPARISON: Chest For Pe Angio dated 01/20/2023; Chest For Pe Angio dated 12/22/2022; Chest For Pe Ang io dated 05/05/2022; Chest For Pe Angio dated 11/17/2021 TECHNIQUE: Thin axial CT images of the chest were obtained following administration of intravenous i odinated contrast. Multiplanar reconstructions, and maximum intensity projection reconstructions were generated and reviewed. Exam utilizes a protocol for optimal evaluation of pulmonary arterial tree. All CT scans are performed using dose optimization technique as appropriate and may include automated exposure control or mA/KV adjustment according to patient size. FINDINGS: Pulmonary arteries are normal. No emboli or other suspicious finding. No acute or signific ant aorta findings. No mass or infiltrate in the lung parenchyma. Moderate centrilobular emphysematous changes, although breathing motion artifact somewhat limits evaluation. Subsegmental atelectasis in the left lingula an d right middle lobe. No pleural thickening or pleural effusion. No pneumothorax. No abnormal mediastinal or hilar masses or lymphadenopathy seen. No chest wall mass or abnormal axill iary lymphadenopathy. IMPRESSION: No evidence of acute central pulmonary emboli. No other acute findings. Moderate centrilobular emphysematous changes.
--- NOTE | 2023-06-17 21:01 | RAD REPORT ---
[facility]38 [facility] CLINICAL HISTORY: SOB COMPARISON: Chest Single View dated 01/20/2023; Chest Single View dated 12/25/2022; Chest Single View dated 12/22/2022; Chest Single View dated 05/05/2022 TECHNIQUE: Portable AP view of the chest. FINDINGS: The lungs are clear. No pneumothorax or effusion. The cardiomediastinal contours are unre markable. IMPRESSION: No acute cardiopulmonary process.
[2023-06-17 21:06] LABS: Blood Morphology Comment NOT SEEN (NOT SEEN); Platelet Estimate ADEQ; White Blood Cell Scan OK (OK)
--- NOTE | 2023-06-17 21:10 | ER ---
Nurse's Notes [facility] Name: Roxanne Duran Age: 53 yrs Sex: Female : 1970 Arrival Date: 06/17/2023 Time: 17:07 Bed 19 Private MD: Diagnosis: COPD/ Chronic obstructive pulmonary disease, unspecified;Shortness of breath;Chest pain, unspecified Presentation: 06/16 17:59 Chief complaint: EMS states: "SOB for several months, worse today. Complains of pain to rs5 chest and right lower back". Coronavirus screen: At this time, the client does not indicate any symptoms associated with coronavirus-19. Ebola Screen: No symptoms or risks identified at this time. Initial Sepsis Screen: Does the patient meet any 2 criteria?. Initial Sepsis Screen: Does the patient meet any 2 criteria? No. Patient's initial sepsis screen is negative. Does the patient have a suspected source of infection? No. Patient's initial sepsis screen is negative. Risk Assessment: Do you want to hurt yourself or someone else? Patient reports no desire to harm self or others. Onset of symptoms was June 17, 2023. 17:59 Method Of Arrival: EMS: [facility] rs5 17:59 Acuity: SHYLA 3 rs5 18:00 Care prior to arrival: IV initiated. 20 GA, in the right antecubital area. rs5 Triage Assessment: 18:03 General: Appears in no apparent distress. uncomfortable, Behavior is cooperative, rs5 anxious. Pain: Complains of pain in chest and right lower back. Historical: - Allergies: 18:03 No Known Allergies; rs5 - PMHx: 18:03 Anxiety; COPD; diabetes mellitus; DVT Left leg; rs5 - PSHx: 18:03 partial hysterectomy; rs5 - Immunization history:: Adult Immunizations up to date. - Infectious Disease History:: Denies. - Social history:: Smoking status: Patient/guardian denies using tobacco, but has a distant history of tobacco abuse. Screenin:00 [facility] ED Fall Risk Assessment (Adult) History of falling in the last 3 months, rs5 including since admission No falls in past 3 months (0 pts) Confusion or Disorientation No (0 pts) Intoxicated or Sedated No (0 pts) Impaired Gait No (0 pts) Mobility Assist Device Used No (0 pt) Altered Elimination No (0 pt) Score/Fall Risk Level 0 - 2 = Low Risk Oriented to surroundings, Maintained a safe environment. Abuse screen: Denies threats or abuse. Nutritional screening: No deficits noted. Tuberculosis screening: No symptoms or risk factors identified. Assessment: 18:00 General: Appears in no apparent distress. uncomfortable, Behavior is calm, cooperative. rs5 Pain: Complains of pain in chest and right lower back Pain currently is 5 out of 10 on a pain scale. Quality of pain is described as aching, Is continuous. Neuro: Level of Consciousness is awake, alert, obeys commands, Oriented to person, place, time, situation. Cardiovascular: Patient's skin is warm and dry. Rhythm is regular. Respiratory: Airway is patent Respiratory effort is even, unlabored, Respiratory pattern is regular, symmetrical. GI: Abdomen is round non-distended, Bowel sounds present X 4 quads. Abd is soft and non tender X 4 quads. : No signs and/or symptoms were reported regarding the genitourinary system. EENT: No signs and/or symptoms were reported regarding the EENT system. Derm: Skin is intact, Skin is pink, warm \\T\\ dry. Musculoskeletal: Range of motion: intact in all extremities. 19:00 General: Appears in no apparent distress. comfortable, well groomed, well developed, pf1 Behavior is calm, cooperative, appropriate for age, quiet. Pain: Complains of pain in chest and back. Neuro: No deficits noted. Level of Consciousness is awake, alert, obeys commands, Oriented to person, place, time, situation. Cardiovascular: Reports chest pain, shortness of breath, earlier today Capillary refill < 3 seconds Patient's skin is warm and dry. Respiratory: Reports shortness of breath at rest on exertion patient stated is currently on 02 2.5LNC at home for COPD. Airway is patent Respiratory effort is even, unlabored, Respiratory pattern is regular, symmetrical, Onset: The symptoms/episode began/occurred 2 months worse today. 19:00 GI: Abdomen is round non-distended. : No deficits noted. No signs and/or symptoms pf1 were reported regarding the genitourinary system. EENT: No deficits noted. No signs and/or symptoms were reported regarding the EENT system. Derm: No deficits noted. No signs and/or symptoms reported regarding the dermatologic system. Musculoskeletal: No deficits noted. No signs and/or symptoms reported regarding the musculoskeletal system. Circulation, motion, and sensation intact. Capillary refill < 3 seconds, Range of motion: intact in all extremities. 19:25 Reassessment: Applied pure wick to patient. pf1 20:15 Reassessment: Patient appears in no apparent distress at this time. Patient and/or pf1 family updated on plan of care and expected duration. Pain level reassessed. Patient is alert, oriented x 3, equal unlabored respirations, skin warm/dry/pink. 21:00 Reassessment: Patient appears in no apparent distress at this time. Patient and/or pf1 family updated on plan of care and expected duration. Pain level reassessed. Patient is alert, oriented x 3, equal unlabored respirations, skin warm/dry/pink. Patient states symptoms have improved. 21:29 Reassessment: Patient to ambulate prior to discharge. pf1 21:40 Reassessment: Patient ambulated without difficulty in breathing. Patient able to talk pf1 in full sentences while ambulating. O2 saturation maintain 95%-97% with ambulation while on 02 2.5 LNC. Vital Signs: 17:59 BP 113 / 81; Pulse 81; Resp 18; Temp 99(O); Pulse Ox 95% on 2 lpm NC; rs5 19:00 BP 123 / 78; Pulse 92; Resp 20; Temp 98; Pulse Ox 98% on 2.5 lpm NC; pf1 20:00 BP 119 / 79; Pulse 91; Resp 20; Pulse Ox 98% on 2.5 lpm NC; pf1 21:00 BP 116 / 65; Pulse 92; Resp 20; Temp 97.9; Pulse Ox 99% on 2.5 lpm NC; Pain 3/10; pf1 21:00 Pain Scale: Adult pf1 ED Course: 17:59 Patient arrived in ED. rs5 17:59 Hipolito Waldrop PA is PHCP. cp 18:00 Hipolito Ty MD is Attending Physician. cp 18:00 Patient has correct armband on for positive identification. Placed in gown. Bed in low rs5 position. Call light in reach. Side rails up X2. 18:00 No provider procedures requiring assistance completed. rs5 18:03 Triage completed. rs5 18:05 Valenzuela, Tomi, RN is Primary Nurse. rs5 18:40 XRAY Chest (1 view) In Process Unspecified. EDMS 19:00 Arm band placed on right wrist. pf1 19:15 CT Chest For PE Angio In Process Unspecified. EDMS 21:54 IV discontinued, intact, bleeding controlled, No redness/swelling at site. Pressure pf1 dressing applied. 21:55 Provided Education on: prescription. pf1 Administered Medications: 18:16 Drug: DuoNeb Nebulize (2.5 mg - 0.5 mg) 3 ml Nebulizer once Route: Nebulizer; rs5 19:15 Follow up: Response: No adverse reaction; Marked relief of symptoms pf1 18:16 Drug: MethylPrednisoLONE IVP 125 mg IVP once Route: IVP; Site: left antecubital; rs5 19:15 Follow up: Response: No adverse reaction; Marked relief of symptoms pf1 Medication: 18:05 VIS not applicable for this client. rs5 Outcome: 21:09 Discharge ordered by MD. cp 21:54 Discharged to home via wheelchair, with family, pf1 21:54 Condition: improved 21:54 Discharge instructions given to patient, Instructed on discharge instructions, follow up and referral plans. Demonstrated understanding of instructions, follow-up care, medications, Prescriptions given X 1, 21:55 Patient left the ED. pf1 Signatures: Dispatcher [employer] EDMS Hipolito Waldrop PA PA cp Finley, Pamala, RN RN pf1 Tomi Valenzuela, RN RN rs5
--- NOTE | 2023-06-17 21:10 | EDPHYS ---
Physician Documentation [facility] Name: Roxanne Duran Age: 53 yrs Sex: Female : 1970 Arrival Date: 06/17/2023 Time: 17:07 Bed 19 Private MD: ED Physician Hipolito Ty HPI: 06/16 18:05 This 53 yrs old Female presents to ER via EMS with complaints of Shortness of Breath. cp 18:05 The patient has shortness of breath at rest. Onset: The symptoms/episode began/occurred cp 2 month(s) ago. 18:05 Associated signs and symptoms: Pertinent positives: chest pain, non-productive cough, cp Pertinent negatives: productive cough, diaphoresis, dizziness, fever. Severity of symptoms: in the emergency department the symptoms are unchanged despite EMS interventions. 18:05 Patient reports recently finishing second round of prescribed Ciprofloxacin for cp pneumonia. Historical: - Allergies: 18:03 No Known Allergies; rs5 - PMHx: 18:03 Anxiety; COPD; diabetes mellitus; DVT Left leg; rs5 - PSHx: 18:03 partial hysterectomy; rs5 - Immunization history:: Adult Immunizations up to date. - Infectious Disease History:: Denies. - Social history:: Smoking status: Patient/guardian denies using tobacco, but has a distant history of tobacco abuse. ROS: 18:10 Constitutional: Negative for chills, fever, poor PO intake, cp 18:10 Eyes: Negative for injury, pain, redness, and discharge, cp 18:10 ENT: Negative for drainage from ear(s), ear pain, sore throat, difficulty swallowing, difficulty handling secretions, 18:10 Cardiovascular: Positive for chest pain, Negative for edema, palpitations, 18:10 Respiratory: Positive for cough, shortness of breath, at rest. Negative for wheezing, 18:10 Abdomen/GI: Negative for abdominal pain, vomiting, diarrhea, constipation, 18:10 Back: Negative for pain at rest, pain with movement, 18:10 : Negative for urinary symptoms, 18:10 Neuro: Negative for altered mental status, dizziness, syncope, near syncope, 18:10 All other systems are negative, Exam: 18:15 Constitutional: The patient appears in no acute distress, alert, awake, cp non-diaphoretic, non-toxic, well developed, well nourished, uncomfortable, 18:15 Head/Face: Normocephalic, atraumatic. cp 18:15 Eyes: Periorbital structures: appear normal, Conjunctiva: normal, no exudate, no injection, Sclera: no appreciated abnormality, Lids and lashes: appear normal, bilaterally, 18:15 ENT: External ear(s): are unremarkable, Ear canal(s): are normal, clear, TM's: Nose: is normal, Mouth: Lips: moist, Oral mucosa: pink and intact, moist, Posterior pharynx: Airway: no evidence of obstruction, patent, erythema, is not appreciated, exudate, is not appreciated, 18:15 Neck: ROM/movement: is normal, is supple, without pain, no range of motions limitations, no meningismus, no nuchal rigidity, 18:15 Chest/axilla: Inspection: normal, Palpation: is normal, no crepitus, no tenderness, 18:15 Cardiovascular: Rate: normal, Rhythm: regular, Edema: is not appreciated, JVD: is not appreciated, 18:15 Respiratory: the patient does not display signs of respiratory distress, Respirations: labored breathing, that is mild, Breath sounds: decreased breath sounds, that are mild, diffuse, stridor, is not appreciated, wheezing: that is mild, is heard diffusely, 18:15 Abdomen/GI: Inspection: abdomen appears normal, Bowel sounds: active, all quadrants, Palpation: abdomen is soft and non-tender, in all quadrants, 18:15 Back: pain, is absent, ROM is normal, 18:57 ECG was reviewed by the Attending Physician. cp Vital Signs: 17:59 BP 113 / 81; Pulse 81; Resp 18; Temp 99(O); Pulse Ox 95% on 2 lpm NC; rs5 19:00 BP 123 / 78; Pulse 92; Resp 20; Temp 98; Pulse Ox 98% on 2.5 lpm NC; pf1 20:00 BP 119 / 79; Pulse 91; Resp 20; Pulse Ox 98% on 2.5 lpm NC; pf1 21:00 BP 116 / 65; Pulse 92; Resp 20; Temp 97.9; Pulse Ox 99% on 2.5 lpm NC; Pain 3/10; pf1 21:00 Pain Scale: Adult pf1 MDM: 18:01 Patient medically screened. faye 19:00 Differential diagnosis: asthma, Bronchitis CHF exacerbation, Chronic Obstructive cp Pulmonary Disease pneumonia, pulmonary edema, Pulmonary Embolism Sepsis. 21:09 Antibiotic administration: Not indicated, the patient does not have an appreciated cp infiltrate. 21:09 Data reviewed: vital signs, nurses notes, lab test result(s), EKG, radiologic studies, cp CT scan, plain films, and as a result, I will discharge patient. Consideration of Admission/Observation Escalation of care including admission/observation considered. I considered the following discharge prescriptions or medication management in the emergency department Medications were administered in the Emergency Department. See MAR. Care significantly affected by the following chronic conditions: Diabetes, Chronic Obstructive Pulmonary Disease. Counseling: I had a detailed discussion with the patient and/or guardian regarding the historical points, exam findings, and any diagnostic results supporting the discharge/admit diagnosis, lab results, radiology results, the need for outpatient follow up, a family practitioner, to return to the emergency department if symptoms worsen or persist or if there are any questions or concerns that arise at home. Response to treatment: the patient's symptoms have markedly improved after treatment, and as a result, I will discharge patient. 06/16 18:04 Order name: Basic Metabolic Panel; Complete Time: 18:54 06/16 21:01 Interpretation: Normal except: GLUC 149; CRE 1.22; GFR 53. 06/16 18:04 Order name: CBC with Diff; Complete Time: 21:07 cp 06/16 21:07 Interpretation: Normal except: MPV 6.7; JOSE% 80.8; MN% 2.1. 06/16 18:04 Order name: LFT's; Complete Time: 18:54 06/16 18:04 Order name: Magnesium; Complete Time: 18:54 cp 06/16 18:04 Order name: NT PRO-BNP; Complete Time: 18:54 cp 06/16 18:04 Order name: PT-INR; Complete Time: 18:54 cp 06/16 18:04 Order name: Troponin HS; Complete Time: 18:54 06/16 19:24 Order name: Urinalysis W/Microscopic; Complete Time: 20:04 06/16 20:04 Interpretation: Normal except: Urine SG > 1.030; UGLUC TRACE; UESTR 25; URBC 5-10. 06/16 19:24 Order name: Test, Urine; Complete Time: 20:04 06/16 20:04 Interpretation: Normal except: Urine SG > 1.030. 06/16 21:06 Order name: CBC Smear Scan; Complete Time: 21:07 EDMS 06/16 18:04 Order name: XRAY Chest (1 view); Complete Time: 21:02 cp 06/16 21:02 Interpretation: Report review. 06/16 18:56 Order name: CT Chest For PE Angio; Complete Time: 20:59 cp 06/16 18:04 Order name: EKG; Complete Time: 18:04 cp 06/16 18:04 Order name: Cardiac monitoring; Complete Time: 18:15 06/16 18:04 Order name: EKG - Nurse/Tech; Complete Time: 18:58 06/16 18:04 Order name: IV Saline Lock; Complete Time: 18:15 cp 06/16 18:04 Order name: Labs collected and sent; Complete Time: 18:15 06/16 18:04 Order name: O2 Per Protocol; Complete Time: 18:15 06/16 18:04 Order name: O2 Sat Monitoring; Complete Time: 18:15 cp EC:57 Rate is 86 beats/min. Rhythm is regular. MA interval is normal. QRS interval is normal. cp QT interval is normal. T waves are Inverted in leads aVL, aVR. Interpreted by me. Reviewed by me. Administered Medications: 18:16 Drug: DuoNeb Nebulize (2.5 mg - 0.5 mg) 3 ml Nebulizer once Route: Nebulizer; rs5 19:15 Follow up: Response: No adverse reaction; Marked relief of symptoms pf1 18:16 Drug: MethylPrednisoLONE IVP 125 mg IVP once Route: IVP; Site: left antecubital; rs5 19:15 Follow up: Response: No adverse reaction; Marked relief of symptoms pf1 Disposition Summary: 06/17/23 21:09 Discharge Ordered Notes: Location: Home cp Problem: an acute exacerbation cp Symptoms: have improved cp Condition: Stable cp Diagnosis - COPD/ Chronic obstructive pulmonary disease, unspecified cp - Shortness of breath cp - Chest pain, unspecified cp Followup: cp - With: Private Physician - When: 2 - 3 days - Reason: Recheck today's complaints Discharge Instructions: - Discharge Summary Sheet cp - Nonspecific Chest Pain, Adult cp - Chronic Obstructive Pulmonary Disease cp - Shortness of Breath, Adult cp - Aspirin and Your Heart cp Forms: - Medication Reconciliation Form cp - Antibiotic Education cp - Prescription Opioid Use cp - Patient Portal Instructions cp - Leadership Thank You Letter cp Prescriptions: - Prednisone 20 mg Oral tablet - take 3 tablet ORAL route once daily for 5 days; 15 tablet; Refills: 0, Product cp Selection Permitted Addendum: 06/18/2023 22:10 Co-signature as Attending Physician, Hipolito Ty MD I agree with the assessment and c he plan of care. Signatures: Dispatcher [employer] EDAR Hipolito Ty MD MD cha Page, Corey, PA PA cp Tomi Valenzuela RN RN rs5 Sera Dye RN pf1 Corrections: (The following items were deleted from the chart) 21:51 06/16 21:10 Antibiotic administration: Not indicated, the patient does not have an cp appreciated infiltrate, cp
[2023-06-17 22:30] VITALS: BP 116/65; TEMP 97.9; O2SAT 99
--- NOTE | 2023-06-18 14:44 | EKG ---
Test Date: 2023-06-17 Test Time: 18:51:49 Export Specialist: TONY MEASUREMENT RESULTS: Intervals: Rate: 86 HI: 142 QRSD: 76 QT: 356 QTc: 426 Tenino: P: 77 HI: 142 QRS: 79 T: 79 INTERPRETIVE STATEMENTS: Normal sinus rhythm with sinus arrhythmia Normal ECG Compared to ECG 01/20/2023 20:32:52 No significant changes Electronically Signed On 06-18-23 14:43:25 CDT by Bob Reyez
== END 2023-06-17 21:55 | disposition home or self-care (01) ==
LOC: ER 17:07
DX: J44.9 Chronic obstructive pulmonary disease, unspecified (principal); R07.9 Chest pain, unspecified; F41.9 Anxiety disorder, unspecified
CPT/HCPCS: 93005; 85025; 81001; 80048; 36415; 83735; 81025; 85610; 80076; 84484; 83880; 71275; 71045; Q9967; J7613; J7644; J2919; 94640; 96374; 99284

== ENCOUNTER 2023-08-27 00:53 | Emergency (ER) | payer OTHER ==
--- OUTSIDE RECORDS SUMMARY | 2023-08-27 00:57 | XMS REPORT | Continuity of Care Document ---
Author Name Unknown Address [address] [facility] [address] [place] [address] [facility] thconnect Address [address] [facility] [address] [place] [address] Care Team Providers Care Interior Designer Name Role Phone ASHLEYYENIFER COOLEY Primary Care Physician Unavailab MECHE Hylton Attending Clinician COLLIN Howard Attending Clinician Unavailable COLLIN ORTEGA Attending Clinician Unavailable MARY FELTON Attending Clinician Unavailable Meche Lam MD Attending Clinician + [phone] Doctor Unassigned, [place] Attending Clinician Bradley Sandhu MD Attending Clinician [phone] Meche Lechuga MD Attending Clinician + [phone] Only, Adc Test Attending Clinician Unavailable Pob, [facility] Main Attending Clinician UnavailJn Walker Attending Clinician Unavailable MECHE LAM Admitting Clinician Meche Colón MD Admitting Clinician + [phone] Jn Barrios Admitting Clinician Unavailable Payers Payer Name Policy Type Policy Number Effective Date Expirati on Date Source [facility] MICHAEL BAÑUELOS [id number] 2020 00:00:00 [facility] DUAL COMP HMO D SNP [id number] 2022 00:00:00 Problems Condition Name Condition Details Condition Category Status Onset Date Resolution Date Last Treatment Date Treating Clinician Comments Source Bronchitis Bronchitis Disease Active 02-19 00:00: 00 [facility] COPD exacerbati on COPD exacerbati on Disease Active 2014-02 00:00: 00 [facility] Allergies, Adverse Reactions, Alerts Allergy Name Allergy Type Status Severity Reaction(s) Onset Date Inactive Date Treating Clinician Comments Source NO KNOWN ALLERGIE S Drug Class Active [facility] Social History Social Habit Start Date Stop Date Quantity Comments Source History of tobacco use Current smoker [facility] Tobacco use and exposure 2022-05-31 00:00:00 2022-05-31 00:00:00 Smokeless tobacco non-user [facility] Alcohol intake 2022-05-31 00:00:00 2022-05-31 00:00:00 Ex-drinker (finding) [facility] Exposure to SARS-CoV-2 (event) 2022-05-15 00:00:00 2022-05-25 13:29:[address] [facility] Sex Assigned At 1970 00:00:00 1970 00:00:00 [facility] Smoking Status Start Date Stop Date Source Ex-smoker 2022-05-31 00:00:00 2022-05-31 00:00:00 U [facility] Medications Ordered Medication Name Filled Medication Name Start Date Stop Date Current Medication? Ordering Clinician Indication Dosage Frequency Signature (SIG) Comments Components Source ceFAZolin (ANCEF) injection 05-31 17:19: 00 05-31 17:28 :42 No PRN, Starting on Missy 05/31/22 at 1219, Until Missy 05/31/22 at 1228, IRA, Intra-op [facility] neomycin-po lymyxin-dex amethasone (MAXITROL) 3.5 mg/g-10,000 unit/g-0.1 % ophthalmic ointment 05-31 17:19: 00 05-31 17:28 :42 No PRN, Starting on Missy 05/31/22 at 1219, Until Missy 05/31/22 at 1228, Routine, Intra-op [facility] gentamicin injection 05-31 17:19: 00 05-31 17:28 :42 No PRN, Starting on Missy 05/31/22 at 1219, Until Missy 05/31/22 at 1228, IRA, Intra-op [facility] dexamethaso ne (DECADRON PHOSPHATE) injection 05-31 17:19: 00 05-31 17:28 :42 No PRN, Starting on Missy 05/31/22 at 1219, Until Missy 05/31/22 at 1228, Routine, Intra-op [facility] chondroitin sulf-sod hyaluronate (DUOVISC VISCO ELASTIC) intraocular injection 05-31 17:11: 00 05-31 17:28 :42 No PRN, Starting on Missy 05/31/22 at 1211, Until Missy 05/31/22 at 1228, Routine, [facility] 0.5 % ophthalmic drops 05-31 17:01: 00 05-31 17:28 :42 No PRN, Starting on Missy 05/31/22 at 1201, Until Missy 05/31/22 at 1228, Routine, Intra-op [facility] eye block syringe 11 mL 05-31 17:01: 00 05-31 17:28 :42 No PRN, Starting on Missy 05/31/22 at 1201, Until Missy 05/31/22 at 1228, Intra-op [facility] water for irrigation irrigation solution 05-31 16:59: 00 05-31 17:28 :42 No PRN, Starting on Missy 05/31/22 at 1159, Until Missy 05/31/22 at 1228, Routine, Intra-op [facility] sodium chloride (NS) injection 05-31 16:58: 00 05-31 17:28 :42 No PRN, Starting on Missy 05/31/22 at 1158, Until Missy 05/31/22 at 1228, Routine, Intra-op [facility] EPINEPHrine (PF) 1:1,000 (1 mg/mL) (ADRENALIN (PF)) injection 05-31 16:58: 00 05-31 17:28 :42 No PRN, Starting on Missy 05/31/22 at 1158, Until Missy 05/31/22 at 1228, Routine, Intra-op [facility] balanced salt soln no.2 irrig. (BSS) ophthalmic solution 05-31 16:57: 00 05-31 17:28 :42 No PRN, Starting on Missy 05/31/22 at 1157, Until Missy 05/31/22 at 1228, Routine, Intra-op [facility] cyclopent 1%-tropic 1%-phenyl 2.5%-ketor 0.5% (MYDRIATIC #5) ophthalmic solution syringe 0.5 mL 05-31 15:15: 00 05-31 15:32 :00 No .5mL 0.5 mL, Left Eye, ONCE, 1 dose, On Missy 05/31/22 at 1015, Routine, DSU Pre-op Univers [facility] lactated ringers IV infusion 1,000 mL 05-31 15:15: 00 05-31 15:34 :00 No 1000mL at 42 mL/hr, 1,000 mL, IV Infusion, ONCE, 1 dose, On Missy 05/31/22 at 1015, Routine, DSU Pre-op [facility] apixaban 5 mg tablet 05-31 13:21: 15 Yes 5mg Take 1 tablet by mouth in the morning and 1 tablet in the evening. [facility] ity [facility] rivaroxaban (XARELTO) 10 mg tablet 05-31 13:21: 15 Yes 10mg Take 1 tablet by mouth in the morning. [facility] predniSONE 10 mg tablet 05-31 13:21: 15 Yes 10mg Take 1 tablet by mouth in the morning. [facility] fluticasone -umeclidin- vilanter (TRELEGY ELLIPTA) 200-62.5-25 mcg DsDv 05-31 13:21: 15 Yes 1{puff} Inhale 1 Puff in the morning. [facility] montelukast 10 mg tablet 05-31 13:21: 15 Yes 10mg Take 1 tablet by mouth as needed. [facility] albuterol (PROAIR HFA) 90 mcg/actuati on inhaler 05-31 13:21: 15 Yes 2{puff} Inhale 2 Puffs every 6 (six) hours as needed for Wheezing or Shortness of Breath. [facility] TAKE 1 AND 1/2 TABLETS DAILY. 2021-02 [...] BY MOUTH EVERY DAY FOR 30 DAYS 2022-1 2-15 00:00: 00 No TAKE 1 TABLET BY MOUTH EVERY 6 HOURS NEEDED ANXIETY 1 2-15 00:00: 00 No TRELEGY ELLIPTA 100-62.5-25 MCG/ACT AEPB 2021-02 2-15 00:00: 00 No Dose Unknown 2021-02 2-15 00:00: 00 No ESZOPICLONE 2 MG TABS 2021-02 2-15 00:00: 00 No TAKE 1 TABLET BY MOUTH EVERY DAY 1 2-15 00:00: 00 No Dose Unknown 2021-02 2-15 00:00: 00 No SYMBICORT 160-4.5 MCG/ACT AERO 2021-02 2-15 00:00: 00 No Dose Unknown [...] No 20 Lexapro 5 mg tablet 0 08-30 00:00: 00 No 1mg hydroxyzine HCl 25 mg tablet 0 08-30 00:00: 00 No 1mg Effexor XR 75 mg capsule,ext ended release 0 08-30 00:00: 00 No 1mg Effexor XR 150 mg capsule,ext ended release 0 08-30 00:00: 00 No 1mg TAKE 1 TABLET BY MOUTH EVERY DAY FOR 30 DAYS 0 08-30 00:00: 00 No 25 INHALE 1 PUFF BY MOUTH EVERY DAY 0 08-30 00:00: 00 No Dose Unknown 0 08-30 00:00: 00 No Dose Unknown 0 7-13 00:00: 00 No Dose Unknown 0 7-13 00:00: 00 No TAKE 1 TABLET BY MOUTH EVERY DAY FOR 30 DAYS 0 7-13 00:00: 00 No 25 INHALE 1 PUFF BY MOUTH EVERY DAY 0 7-13 00:00: 00 No Singulair 10 mg [...] mg base)/3 mL nebulizatio n soln 0 -18 00:00: 00 No 3mg base)/3 mL Dose Unknown 0 3-18 00:00: 00 No prednisone 20 mg tablet 0 3-18 00:00: 00 No mg USE 1 UNIT DOSE IN NEBULIZER EVERY 4 HOURS NEEDED. 0 -18 00:00: 00 No Dose Unknown 2022-0 3-17 00:00: 00 No Dose Unknown 2022-0 3-17 00:00: 00 No Dose Unknown 2022-0 3-17 00:00: 00 No Dose Unknown 2022-0 3-17 00:00: 00 No Dose Unknown 2-0 3-17 00:00: 00 No Dose Unknown 2022-0 3-17 00:00: 00 No Dose Unknown 2022-0 2-21 00:00: 00 No Dose Unknown 2-0 2-21 00:00: 00 No Dose Unknown 2-0 2-21 00:00: 00 No Dose Unknown 2-0 2-21 00:00: 00 No Dose Unknown 2-0 2-17 00:00: 00 No Dose Unknown 2-0 2-17 00:00: 00 No Dose Unknown 2-0 2-17 00:00: 00 No venlafaxine ER 150 mg capsule,ext ended release 24 hr 2021-0 2-17 00:00: 00 No 1mg Dose Unknown 2021-0 1-19 00:00: 00 No Dose Unknown 2-0 1-19 00:00: 00 No Dose Unknown 2-0 1-19 00:00: 00 No Dose Unknown 2-0 1-19 00:00: 00 No hydroxyzine HCl 25 mg tablet 2020-02 2- 00:00: 00 No 1mg venlafaxine ER 150 mg capsule,ext ended release 24 hr 2020-02 2- 00:00: 00 No 1mg hydroxyzine HCl 25 mg tablet 2020-02 2- 00:00: 00 No 1mg venlafaxine ER 150 mg capsule,ext ended release 24 hr 2020-02 2- 00:00: 00 No 1mg prednisone 20 mg tablet 2020-02 2- 00:00: 00 No mg Dose Unknown 2020-02 2- 00:00: 00 No Dose Unknown 2020-02 2- 00:00: 00 No Singulair 10 mg tablet 2020-02 2- 00:00: 00 No 1mg prednisone 20 mg tablet 2020-02 2- 00:00: 00 No mg Effexor XR 75 mg capsule,ext ended release 2020-02 2- 00:00: 00 No 1mg Symbicort 160 mcg-4.5 mcg/actuati on HFA aerosol inhaler 2020-02 2- 00:00: 00 No 2mcg/ac tuation Dose Unknown 2020-02- 00:00: 00 No ProAir HFA 90 mcg/actuati on aerosol inhaler 2020-02 00:00: 00 No 1mcg/ac tuation prednisone 20 [...] 00 No prednisone 20 mg tablet 2020-02 0-04 00:00: 00 No 2mg azithromyci n 250 mg tablet 2020-02 0-04 00:00: 00 No mg Tessalon Perles 100 mg capsule 2020-02 0-04 00:00: 00 No 1mg Dose Unknown 9- [...] 160 mcg-4.5 mcg/actuati on HFA aerosol inhaler - 00:00: 00 No 2mcg/ac tuation ProAir HFA 90 mcg/actuati on aerosol inhaler - 00:00: 00 No 1mcg/ac tuation Augmentin 875 mg-125 mg tablet - 00:00: 00 No 1mg Dose Unknown 06-20 [...] No 1mcg/ac tuation apixaban 5 mg tablet 05-26 13:00: 39 Yes 5mg Take 5 mg by mouth 2 (two) times daily. [facility] prednisone 20 mg tablet - 00:00: 00 [...] 0 2-19 00:00: 00 No 1mcg/ac tuation ipratropium 0.5 mg-albutero l 3 mg (2.5 mg base)/3 mL nebulizatio n soln 2-19 00:00: 00 No 3mg base)/3 mL ProAir HFA 90 mcg/actuati on aerosol inhaler 2-03 00:00: 00 No 1mcg/ac tuation ProAir HFA 90 mcg/actuati on aerosol inhaler 2-03 00:00: 00 No 1mcg/ac tuation ProAir HFA 90 mcg/actuati on aerosol inhaler 2019-02 2- 00:00: 00 No 1mcg/ac tuation montelukast 10 mg tablet 2019-02 2- 00:00: 00 No 1mg ProAir HFA 90 mcg/actuati on aerosol inhaler 2019-02 2- 00:00: 00 No 1mcg/ac tuation montelukast 10 mg tablet 2019-02 2- 00:00: 00 No 1mg Effexor XR 75 mg capsule,ext ended release 0 9-30 00:00: 00 No 1mg Effexor XR 75 mg capsule,ext ended release 0 9-30 00:00: 00 No 1mg ProAir HFA 90 mcg/actuati on aerosol inhaler 0 8-17 00:00: 00 No 1mcg/ac tuation ProAir HFA 90 mcg/actuati on aerosol inhaler 0 8-17 00:00: 00 No 1mcg/ac tuation Effexor XR 75 mg capsule,ext ended release 0 8-11 00:00: 00 No 1mg Effexor XR 75 mg capsule,ext ended release 0 8-11 00:00: 00 No 1mg prednisone 20 mg tablet 0 7-29 00:00: 00 No 2mg Bromfed DM 2 [...] 00 No 1mg buspirone 10 mg tablet -27 00:00: 00 No 1mg montelukast 10 mg tablet 0 07-14 00:00: 00 No 1mg albuterol sulfate 2.5 mg/3 mL (0.083 %) solution for nebulizatio n 07-14 00:00: 00 No 3/3 mL (0.083 %) ProAir HFA 90 mcg/actuati on aerosol inhaler 0 - 00:00: 00 No 1mcg/ac tuation Trelegy Ellipta 100 mcg-62.5 mcg-25 mcg powder for inhalation 0 2-19 00:00: 00 No 1mcg ProAir HFA 90 mcg/actuati on aerosol inhaler 0 -19 00:00: 00 No 1mcg/ac tuation Trelegy Ellipta [...] 00 No 1mg benzonatate 100 mg capsule 0 2-12 00:00: 00 No 12mg buspirone 10 mg tablet 0 2-12 00:00: 00 No 1mg montelukast 10 mg tablet 0 2-12 00:00: 00 No 1mg benzonatate 100 mg capsule 0 2-12 00:00: 00 No 12mg Spiriva with HandiHaler 18 mcg and inhalation capsules 0 2-07 00:00: 00 No 1mcg Spiriva with HandiHaler 18 mcg and inhalation capsules 0 2-07 00:00: 00 No 1mcg Spiriva Respimat 2.5 mcg/actuati on solution for inhalation 0 2-06 00:00: 00 No 1mcg/ac tuation Spiriva Respimat 2.5 mcg/actuati on solution for inhalation 03-26 00:00: 00 No 1mcg/ac tuation ProAir HFA [...] 1 tab once daily for 3 days [facility] clonazePAM 0.5 mg tablet 02-25 00:00: 00 Yes .5mg Take 1 tablet by mouth 3 (three) times daily. [facility] ipratropium -albuterol 0.5 mg-3 mg(2.5 mg base)/3 mL nebulizer solution 02-25 00:00: 00 Yes 3mL Inhale 3 mL 4 (four) times daily as needed for Wheezing. [facility] Vital Signs Vital Name Observation Time Observation Value Comments S ource Oxygen saturation in Arterial blood by Pulse oximetry 2022-05-31 17:50:00 95 /min [facility] Systolic blood pressure 2022-05-31 17:45:00 115 mm[Hg] [facility] Diastolic blood pressure 2022-05-31 17:45:00 52 mm[Hg] [facility] Respiratory rate 2022-05-31 17:45:00 20 /min [facility] Heart rate 2022-05-31 17:23:00 84 /min [facility] Body temperature 2022-05-31 17:23:[address] [facility] Body height 2022-05-25 18:00:00 162.6 cm [facility] Body weight 2022-05-25 18:00:00 92.08 kg [facility] BMI 2022-05-25 18:00:00 34.84 kg/m2 [facility] Systolic blood pressure 2022-05-31 15:31:00 122 mm[Hg] [facility] Diastolic blood pressure 2022-05-31 15:31:00 57 mm[Hg] [facility] Heart rate 2022-05-31 15:31:00 88 /min [facility] Respiratory rate 2022-05-31 15:31:00 18 /min [facility] Oxygen saturation in Arterial blood by Pulse oximetry 2022-05-31 15:31:00 99 /min [facility] Body temperature 2022-05-31 15:27:[address] [facility] Body height 2022-05-25 18:00:00 162.6 cm [facility] Body weight 2022-05-25 18:00:00 92.08 kg [facility] BMI 2022-05-25 18:00:00 34.84 kg/m2 [facility] BP Systolic 2022-01-17 14:48:00 BP [...] INTRAOCULAR LENS IMPLANT 2022-05-31 16:49:[address] [facility] PATIENT QUESTIONNAIRE 2022-05-31 05:01:00 Doctor Unassigned, [place] [facility] ASSIGNMENT OF BENEFITS 2022-05-22 21:36:19 Doctor Unassigned, [place] [facility] Plan of Care Planned Activity Planned Date Details Comments Source Goal Plan of Care Note [code = 17227-2] Goal Plan of Care Note [code = 77173-8] Goal Plan of Care Note [code = 22747-3] Goal Plan of Care Note [code = 10832-1] Goal Plan of Care Note [code = 07476-4] Goal Plan of Care Note [code = 29772-2] Goal Plan of Care Note [code = 96207-2] Goal Plan of Care Note [code = 79839-3] Goal Plan of Care Note [code = 59108-8] Goal Plan of Care Note [code = 65534-8] Goal Plan of Care Note [code = 49645-7] Goal Plan of Care Note [code = 06682-3] Goal Plan of Care Note [code = 24674-8] Goal Plan of Care Note [code = 05047-5] Goal Plan of Care Note [code = 59243-5] Goal Plan of Care Note [code = 55157-2] Goal Plan of Care Note [code = 32265-8] Goal Plan of Care Note [code = 66626-2] Goal Plan of Care Note [code = 56015-7] Goal Plan of Care Note [code = 70745-8] Goal Plan of Care Note [code = 75373-3] Goal Plan of Care Note [code = 51468-8] Goal Plan of Care Note [code = 30895-7] Goal Plan of Care Note [code = 31029-9] Goal Plan of Care Note [code = 15079-9] Goal Plan of Care Note [code = 97590-7] Goal Plan of Care Note [code = 75765-0] Goal Plan of Care Note [code = 99595-9] Goal Plan of Care Note [code = 29243-8] Goal Plan of Care Note [code = 04707-0] Goal Plan of Care Note [code = 42574-0] Goal Plan of Care Note [code = 70911-8] Goal Plan of Care Note [code = 72664-2] Goal Plan of Care Note [code = 48769-1] Goal Plan of Care Note [code = 69273-5] Goal Plan of Care Note [code = 84613-9] Goal Plan of Care Note [code = 09608-6] Goal Plan of Care Note [code = 44569-9] Goal Plan of Care Note [code = 62586-6] Goal Plan of Care Note [code = 36793-5] Goal Plan of Care Note [code = 74881-0] Goal Plan of Care Note [code = 61672-3] Goal Plan of Care Note [code = 83188-2] Goal Plan of Care Note [code = 46596-3] Goal Plan of Care Note [code = 62189-8] Goal Plan of Care Note [code = 41338-4] Goal Plan of Care Note [code = 33479-7] Goal Plan of Care Note [code = 81699-3] Goal Plan of Care Note [code = 44933-0] Goal Plan of Care Note [code = 44508-2] Encounters Start Date/Time End Date/Time Encounter Type Admission Type Attending [facility] Facility Care Department Encounter ID Source 2020-12-18 11:16:09 Outpatient MECHE MEIER [facility] OPH [id number] [facility] 2023-07-05 10:30:00 2023-07-05 10:30:00 Outpatient COLLIN DANIELS SHIWAN [facility] [id number] [facility] 2023-06-17 09:40:00 2023-06-17 09:40:00 Outpatient MARY LEE [facility] [id number] [facility] 2023-05-13 13:25:28 2023-05-13 13:25:28 Outpatient SFA [facility] [id number] Chris Rikki Chas 2023-04-26 10:16:22 2023-04-26 10:16:22 Outpatient SFA [facility] [id number] Chris Doherty 2023-03-29 13:20:36 2023-03-29 13:20:36 Outpatient SFA SFA [id number] Chris Doherty 2023-02-05 15:46:34 2023-02-05 15:46:34 Outpatient SFA SFA [id number] Chris Doherty 2022-11-15 08:28:38 2022-11-15 08:28:38 Outpatient [facility] [id number] Chris Doherty 2022-10-11 16:43:25 2022-10-11 16:43:25 Outpatient [facility] [id number] Chris Doherty 2022-09-07 13:43:12 2022-09-07 13:43:12 Outpatient [facility] [id number] Chris Doherty 2022-09-04 14:30:07 2022-09-04 14:30:07 Outpatient [facility] [id number] Chris Brandt Chas 2022-05-31 10:13:00 2022-05-31 13:09:00 Outpatient MECHE MEIER [facility] OPH [id number] [facility] 2022-05-31 10:13:00 2022-05-31 13:09:00 Hospital Encounter Meche Lam [facility] [id number] 350.1.13.10 4.2.7.2.686 [id number] [facility] 2022-05-31 11:37:00 2022-05-31 12:12:00 Surgery Meche Lam [facility] 1.2.840.114 350.1.13.10 4.2.7.2.686 [id number] [facility] 2022-05-31 00:00:00 2022-05-31 00:00:00 Orders Only Doctor Unassigned, [place] [facility] 1.2.840.114 350.1.13.10 4.2.7.2.686 [id number] [facility] 2022-05-29 10:43:07 2022-05-29 10:43:07 Outpatient [facility] [id number] Chris Brandt Jansen 2022-05-22 00:00:00 2022-05-22 00:00:00 Orders Only Doctor Unassigned, [place] [facility] [id number] 350.1.13.10 4.2.7.2.686 [id number] [facility] 2022-05-17 13:40:22 2022-05-17 13:40:22 Outpatient SFA [facility] [id number] Chris Doherty 2022-04-18 13:53:40 2022-04-18 13:53:40 Outpatient SFA [facility] [id number] Chris Doherty 2022-04-17 09:59:04 2022-04-17 09:59:04 Outpatient SFA [facility] [id number] Chris Doherty 2022-03-10 12:17:29 2022-03-10 12:17:29 Outpatient [facility] [id number] Chris Doherty 2022-02-01 00:00:00 2022-02-01 00:00:00 Outpatient Visit [id number] 2021-10-04 00:00:00 2021-10-04 00:00:00 Outpatient Visit [id number] 2020-05-26 10:30:00 2020-05-26 12:59:00 Hospital Meche Alberto [facility] 1.2.840.114 350.1.13.10 4.2.7.2.686 [id number] 2020-05-26 12:12:00 2020-05-26 12:48:00 Surgery [facility] 1.2.840.114 350.1.13.10 4.2.7.2.686 [id number] 2020-05-26 12:09:00 2020-05-26 12:37:00 Anesthesia Event Earl Meche Estes [facility] 1.84.114 350.1.13.10 4.2.7.2.686 [id number] 2020-05-25 10:21:30 2020-05-25 10:36:30 Laboratory Only Only, Adc Test [facility] 1.20.114 350.1.13.10 4.2.7.2.686 [id number] 2020-05-25 10:15:00 2020-05-25 10:15:00 Outpatient MECHE MEIER [facility] [id number] [facility] 2020-05-19 12:11:02 2020-05-19 12:26:02 Public Service Representative Visit Pob, Adc Lab Main [facility] Professio [facility] 1.2840.114 350.1.13.10 4.2.7.2.686 [id number] 2020-05-19 12:15:00 2020-05-19 12:15:00 Outpatient MECHE MEIER [facility] [id number] [facility] 2020-05-19 00:00:00 2020-05-19 00:00:00 Orders Only Doctor Unassigned, [place] [facility] 1.2840.114 350.1.13.10 4.2.7.2.686 [id number] 2019-12-08 10:14:00 2019-12-08 10:14:00 Outpatient RAMIRO Barrios Jn [facility] RADI [id number] 62 [facility] Results Test Description Test Time Test Comments Results Result Co mments Source CULTURE, URINE 2022-11-17 08:54:12 SPECIMEN NUMBER: [id number] CULTURE, URINE SPECIMEN NUMBER: [id number] SPECIMEN COMMENT: URINE SOURCE: URINE REPORT STATUS: FINAL FINAL REPORT: 11/17/2022 50-100,000 CFU/ML UROGENITAL RICKEY PRESENT NO COMMON PATHOGENS UNLESS OTHERWISE INDICATED, ALL TESTING PERFORMED AT [facility] [address] [place] [id number] [employer] OPERATOR HELPER: CHRISTINA STEVENS M.D. CLIA NUMBER [id number] [facility] [place] [id number] HEMOGLOBIN [id number] 02:57:56* Test Item Value Reference Range Interpretation Comme [facility] HEMOGLOBIN A1c (test code = 43076) 5.6 % 4.2-5.6 TSH, THIRD [id number] 05:54:28* Test Item Value Reference Range Interpretation Comme [facility] TSH, THIRD GENERATION (test code = 2821) 0.631 UIU/ML 0.400-4.100 HEMOGLOBIN [id number] 04:59:53* Test Item Value Reference Range Interpretation Comme [facility] HEMOGLOBIN A1c (test code = 54933) 6.1 % 4.2-5.6 H [employer] GUIDELINES FOR HGB A1C: [...] ALTERNATE TESTING OR LABORATORY CONSULTATION. COMPREHENSIVE METABOLIC [id number] 03:54:48* Test Item Value Reference Range Interpretation Comme nts GLUCOSE (test code = 2217) 101 MG/DL 70-99 H BUN (test code = 2208) 20 MG/DL 6-20 CREATININE (test code = 2214) 0.99 MG/DL 0.60-1.30 eGFR (2020 CKD-EPI) (test code = 69884) 69 ML/MIN/1.73 >60 CALC BUN/CREAT (test code = 2235) 20 RATIO 6-28 SODIUM (test code = 2231) 144 MEQ/L 133-146 POTASSIUM (test code = 2228) 4.5 MEQ/L 3.5-5.4 CHLORIDE (test code = 2215) 101 MEQ/L 95-107 CARBON DIOXIDE (test code = 2206) 30 MEQ/L 19-31 CALCIUM (test code = 2209) 9.8 MG/DL 8.5-10.5 PROTEIN, TOTAL (test code = 2229) 7.0 G/DL 6.1-8.3 ALBUMIN (test code = [...] code = 2219) 11 U/L 5-40 LIPID [id number] 03:54:48* Test Item Value Reference Range Interpretation [...] SPECIMENS. FOR MOREINFORMATION, SEE CLIENT ANNOUNCEMENT AT [email or web address] RATIO LDL/HDL (test code = 2238) 1.39 RATIO <3.22 [facility] has i mportant pathology staff changes effective 04/18/2022. New pathology staff will provide uninterrupted, excellent patient care and clinical consultation. See URL: [email or web address] UNLESS OTHERWISE INDICATED, ALL TESTING PERFORMED AT [facility] [address] [place] [id number] [employer] OPER[employer] HELPER: CHRISTINA STEVENS M.D. CLIA NUMBER [id number] [place] [id number] CBC W/AUTO DIFF WITH [id number] 03:51:06* Test Item Value Reference Range Interpretation [...] 0.00-0.10 ABS NUCLEATED RBCS (test code = 89945) 0.00 K/UL 0.00-0.11 OCCULT BLD,FECAL,IMMUNOASSAY [id number] 11:30:47* Test Item Value Reference Range Interpretation Comme nts OCCULT BLD, FECAL (test code = 64537) NEGATIVE NEGATIVE [facility] has important pathology staff changes effective 04/18/2022. New pathology staff will provide uninterrupted, excellent patient care and clinical consultation. See URL: [email or web address]. UNLESS OTHERWISE INDICATED, ALL TESTING PERFORMED AT [facility] [address] [place] [id number] [employer] OPERATOR HELPER: CHRISTINA STEVENS M.D. [place] NUMBER [id number] [facility] [place]. [id number] RSV BY [id number] 00:00:00* Test Item Value Reference Range Interpretation Comme nts RSV BY DFA (test code = 72209) Negative SOURCE (test code = 26495) Not Provided RSV BY [id number] 00:00:00* Test Item Value Reference Range Interpretation Comme nts RSV BY DFA (test code = 89409) Negative SOURCE (test code = 78728) Not Provided RSV BY [id number] 00:00:00* Test Item Value Reference Range Interpretation Comme nts RSV BY DFA (test code = 98790) Negative SOURCE (test code = 13610) Not Provided RSV BY [id number] 00:00:00* Test Item Value Reference Range Interpretation Comme nts RSV BY DFA (test code = 79568) Negative SOURCE (test code = 91692) Not Provided SARS-CoV-2 (COVID-19) by RT-PCR (HIGH RISK)2020-11-23 00:00:00* Test Item Value Reference Range Interpretation Comme nts SARS-CoV-2 INTERPRETATION (t est code = 49260) NEGATIVE SOURCE (test code = 70101) NOT SPECIFIED SARS-CoV-2 (COVID-19) by RT-PCR (HIGH RISK)2020-11-23 00:00:00* Test Item Value Reference Range Interpretation Comme nts SARS-CoV-2 INTERPRETATION (t est code = 14504) NEGATIVE SOURCE (test code = 24728) NOT SPECIFIED SARS-CoV-2 (COVID-19) by RT-PCR (HIGH RISK)2020-11-23 00:00:00* Test Item Value Reference Range Interpretation Comme nts SARS-CoV-2 INTERPRETATION (t est code = 64619) NEGATIVE SOURCE (test code = 26717) NOT SPECIFIED SARS-CoV-2 (COVID-19) by RT-PCR (HIGH RISK)2020-11-23 00:00:00* Test Item Value Reference Range Interpretation Comme nts SARS-CoV-2 INTERPRETATION (t est code = 48882) NEGATIVE SOURCE (test code = 00027) NOT SPECIFIED [id number] 00:00:00* Test Item Value Reference Range Interpretation Comme nts TSH, THIRD GENERATION (test code = 2821) 1.080 UIU/ML [id number] 00:00:00* Test Item Value Reference Range Interpretation Comme nts TSH, THIRD GENERATION (test code = 2821) 1.080 UIU/ML [id number] 00:00:00* Test Item Value Reference Range Interpretation Comme nts TSH, THIRD GENERATION (test code = 2821) 1.080 UIU/ML CBC W/AUTO [id number] 00:00:00* Test Item Value Reference Range Interpretation [...] ABS NUCLEATED RBCS (test cod e = 36199) 0.00 K/UL CBC W/AUTO [id number] 00:00:00* Test Item Value Reference Range Interpretation [...] ABS NUCLEATED RBCS (test cod e = 05247) 0.00 K/UL CBC W/AUTO [id number] 00:00:00* Test Item Value Reference Range Interpretation [...] ABS NUCLEATED RBCS (test cod e = 61187) 0.00 K/UL VITAMIN D, 25 [id number] 00:00:00* Test Item Value Reference Range Interpretation Comme [facility] VITAMIN D, 25 OH (test code = 4958) 15 NG/ML VITAMIN D, 25 [id number] 00:00:00* Test Item Value Reference Range Interpretation Comme nts VITAMIN D, 25 OH (test code = 4958) 15 NG/ML [id number] 00:00:00* Test Item Value Reference Range Interpretation Comme nts TSH, THIRD GENERATION (test code = 2821) 1.080 UIU/ML [id number] 00:00:00* Test Item Value Reference Range Interpretation Comme nts TSH, THIRD GENERATION (test code = 2821) 1.080 UIU/ML [id number] 00:00:00* Test Item Value Reference Range Interpretation Comme nts TSH, THIRD GENERATION (test code = 2821) 1.080 UIU/ML CBC W/AUTO [id number] 00:00:00* Test Item Value Reference Range Interpretation [...] ABS NUCLEATED RBCS (test cod e = 81065) 0.00 K/UL CBC W/AUTO [id number] 00:00:00* Test Item Value Reference Range Interpretation [...] ABS NUCLEATED RBCS (test cod e = 68004) 0.00 K/UL CBC W/AUTO [id number] 00:00:00* Test Item Value Reference Range Interpretation [...] ABS NUCLEATED RBCS (test cod e = 42528) 0.00 K/UL VITAMIN D, 25 [id number] 00:00:00* Test Item Value Reference Range Interpretation Comme nts VITAMIN D, 25 OH (test code = 4958) 15 NG/ML VITAMIN D, 25 [id number] 00:00:00* Test Item Value Reference Range Interpretation Comme nts VITAMIN D, 25 OH (test code = 4958) 15 NG/ML SARS-COV-2 (COVID19), NAAT [ADDED]2020-03-04 00:00:00* Test Item Value Reference Range Interpretation Comme nts SARS-CoV-2 INTERPRETATION (t est code = 07194) POSITIVE SOURCE (test code = 70215) NOT SPECIFIED SARS-COV-2 (COVID19), NAAT [ADDED]2020-03-04 00:00:00* Test Item Value Reference Range Interpretation Comme nts SARS-CoV-2 INTERPRETATION (t est code = 50771) POSITIVE SOURCE (test code = 64102) NOT SPECIFIED SARS-COV-2 (COVID19), NAAT [ADDED]2020-03-04 00:00:00* Test Item Value Reference Range Interpretation Comme nts SARS-CoV-2 INTERPRETATION (t est code = 08212) POSITIVE SOURCE (test code = 08395) NOT SPECIFIED SARS-COV-2 (COVID19), NAAT [ADDED]2020-03-04 00:00:00* Test Item Value Reference Range Interpretation Comme nts SARS-CoV-2 INTERPRETATION (t est code = 98264) POSITIVE SOURCE (test code = 74712) NOT SPECIFIED - XR CHEST 2 [id number] 11:11:00 [facility] : 1970 Sex: F FAX: Jn Barton MD [phone] [place]: St: REG Name: AMADA RIVERA [facility] : 1970 Age/S: 49/F [address] [place] [address] Unit #: [id number] Loc: [place] [address] Phys: Jn Barrios MD Acct: [id number] Dis Date: Status: REG CLI PHONE #: [phone] Exam Date: 12/08/2019 1111 FAX #: [phone] Reason: R06.02, SHORTNESS OF BREATH. EXAMS: CPT CODE: [id number] XR CHEST 2 V 62209 CLINICAL HISTORY: R06.02, SHORTNESS OF BREATH. COMPARISON: [...] Ortega M.D. CC: Jn Barrios MD Technologist: Genevieve Tapia RT(R) Trnscrd Date/Time/By: 12/08/2019 (1111) : By: Juan Orig Print D/T: S: 12/08/2019 (1418) PAGE 1 Signed [id number] (COVID-19) by RT-PCR (HIGH RISK)2019-09-18 00:00:00* Test Item Value Reference Range Interpretation Comme nts SARS-CoV-2 INTERPRETATION (t est code = 80041) NEGATIVE SOURCE (test code = 30350) NOT SPECIFIED SARS-CoV-2 (COVID-19) by RT-PCR (HIGH RISK)2019-09-18 00:00:00* Test Item Value Reference Range Interpretation Comme nts SARS-CoV-2 INTERPRETATION (t est code = 65772) NEGATIVE SOURCE (test code = 15002) NOT SPECIFIED SARS-CoV-2 (COVID-19) by RT-PCR (HIGH RISK)2019-09-18 00:00:00* Test Item Value Reference Range Interpretation Comme nts SARS-CoV-2 INTERPRETATION (t est code = 83758) NEGATIVE SOURCE (test code = 74835) NOT SPECIFIED SARS-CoV-2 (COVID-19) by RT-PCR (HIGH RISK)2019-09-18 00:00:00* Test Item Value Reference Range Interpretation Comme nts SARS-CoV-2 INTERPRETATION (t est code = 18070) NEGATIVE SOURCE (test code = 20227) NOT SPECIFIED CBC W/AUTO [id number] 00:00:00* Test Item Value Reference Range Interpretation [...] code = 1015) 223 K/UL CBC W/AUTO [id number] 00:00:00* Test Item Value Reference Range Interpretation [...] code = 1015) 223 K/UL CBC W/AUTO [id number] 00:00:00* Test Item Value Reference Range Interpretation [...] code = 1015) 223 K/UL COMPREHENSIVE METABOLIC [id number] 00:00:00* Test Item Value Reference Range Interpretation Comme nts GLUCOSE (test code = 2217) 83 MG/DL BUN (test code = 2208) 17 MG/DL CREATININE (test code = 2214) 0.96 MG/DL eGFR AMER. (test cod e = 24250) 80 ML/MIN/1.73 eGFR NON- AMER. (test code = 16509) 69 ML/MIN/1.73 CALC BUN/CREAT (test code = [...] code = 2219) 15 U/L COMPREHENSIVE METABOLIC [id number] 00:00:00* Test Item Value Reference Range Interpretation Comme nts GLUCOSE (test code = 2217) 83 MG/DL BUN (test code = 2208) 17 MG/DL CREATININE (test code = 2214) 0.96 MG/DL eGFR AMER. (test cod e = 23278) 80 ML/MIN/1.73 eGFR NON- AMER. (test code = 45367) 69 ML/MIN/1.73 CALC BUN/CREAT (test code = [...] code = 2219) 15 U/L CBC W/AUTO [id number] 00:00:00* Test Item Value Reference Range Interpretation [...] code = 1015) 223 K/UL CBC W/AUTO [id number] 00:00:00* Test Item Value Reference Range Interpretation [...] code = 1015) 223 K/UL CBC W/AUTO [id number] 00:00:00* Test Item Value Reference Range Interpretation [...] code = 1015) 223 K/UL COMPREHENSIVE METABOLIC [id number] 00:00:00* Test Item Value Reference Range Interpretation Comme nts GLUCOSE (test code = 2217) 83 MG/DL BUN (test code = 2208) 17 MG/DL CREATININE (test code = 2214) 0.96 MG/DL eGFR AMER. (test cod e = 78654) 80 ML/MIN/1.73 eGFR NON- AMER. (test code = 21794) 69 ML/MIN/1.73 CALC BUN/CREAT (test code = [...] code = 2219) 15 U/L COMPREHENSIVE METABOLIC [id number] 00:00:00* Test Item Value Reference Range Interpretation Comme nts GLUCOSE (test code = 2217) 83 MG/DL BUN (test code = 2208) 17 MG/DL CREATININE (test code = 2214) 0.96 MG/DL eGFR AMER. (test cod e = 11112) 80 ML/MIN/1.73 eGFR NON- AMER. (test code = 27279) 69 ML/MIN/1.73 CALC BUN/CREAT (test code = [...]
[2023-08-27] MEDS ORDERED: LORazepam 2 MG/ML VIAL ONE ×2 (01:42→03:44)
[2023-08-27] MEDS ORDERED: ALBUTEROL 2.5 MG/3 ML NEB SOL ONE (01:43)
[2023-08-27] MEDS ORDERED: IPRATROPIUM BROM 0.5MG/2.5ML ONE (01:43)
[2023-08-27] MEDS ORDERED: METHYLPREDNISOLONE 125 MG INJ ONE (01:43)
[2023-08-27 03:10] LABS: ALT/SGPT 21 U/L (13-56); AST/SGOT 15 U/L (15-37); Albumin 3.4 g/dL (3.4-5.0); Alkaline Phosphatase 62 U/L (45-117); Bilirubin Total 0.3 mg/dL (0.2-1.0); Globulin 3.3 g/dL (2.3-3.5); Magnesium 2.3 mg/dL (1.6-2.4); NT PRO-BNP 81 pg/mL (<125); Protein, Total 6.7 g/dL (6.4-8.2); Troponin High Sensitivity 3.5 pg/mL (<58.9)
[2023-08-27 03:12] LABS: PT Prothrombin Time 10.3 SECONDS (9.4-12.5); Protime INR 0.93
[2023-08-27 03:21] LABS: Bilirubin Direct < 0.2 mg/dL (0-0.2); Bilirubin Indirect, Calculated 0.1 mg/dL (0.2-0.8)
[2023-08-27 04:48] LABS: Anion Gap 10.1 mEq/L (5.0-15.0); Potassium 4.1 mEq/L (3.5-5.1)
[2023-08-27 05:44] LABS: RBC Red Blood Cell Count 4.07 M/uL (3.86-4.86)
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
[2023-08-27 05:47] LABS: Basophils % 0.2 % (0-1.3); Eosinophils % 0.1 % (0-4.4); Hematocrit 39.5 % (36.0-45.0); Hemoglobin 13.1 g/dL (12.0-15.0); Lymphocytes % 7.4 % (15.3-44.8); MCH 32.2 pg (27.0-35.0); MCHC 33.1 g/dL (32.0-36.0); MPV 7.6 fL (7.6-11.3); Monocytes % 1.6 % (3.3-12.3); Neutrophils % 90.7 % (41.7-73.7); Platelets 200 thou/uL (152-406)
[2023-08-27 05:48] LABS: Absolute Lymphocytes (CBC) 0.6 K/uL (0.7-4.9); Absolute Monocytes 0.1 K/uL (0.1-1.3); Absolute Neutrophil 7.2 K/uL (1.8-8.0); Nucleated Red Blood Cells % 0.1 % (0-0)
[2023-08-27 06:23] VITALS: BP 117/73; TEMP 97.1; O2SAT 96
[2023-08-27 10:18] LABS: Blood Morphology Comment NOT SEEN (NOT SEEN); Platelet Estimate ADEQ; White Blood Cell Scan OK (OK)
--- NOTE | 2023-08-27 12:09 | RAD REPORT ---
EXAM DESCRIPTION: RAD - Chest Single View - 08/27/2023 1:17 am CLINICAL HISTORY: The patient is 53 years old and is Female; COPD TECHNIQUE: Frontal view of the chest. COMPARISON: No relevant prior studies available. FINDINGS: LUNGS: The lungs are hyperinflated with mild coarse interstitial markings. There is no l obar consolidation. PLEURAL SPACE: Unremarkable. No pneumothorax. HEART: Unremarkable. No cardiomegaly. MEDIASTINUM: Unremarkable. Normal mediastinal contour. BONES/JOINTS: Unremarkable. No acute fracture. UPPER ABDOMEN: Unremarkable as visualized. IMPRESSION: No acute cardiopulmonary process. Electronically signed by: Sunitha Sterling MD 08/27/2023 02:29 AM CDT RP Due to temporary technical issues with the PACS/Fluency reporting system, reports are being signed by the in house radiologist without review as a courtesy to ensure prompt reporting. The interpreting r adiologist is fully responsible for the content of the report.
--- NOTE | 2023-08-28 12:13 | EKG ---
Test Date: 2023-08-27 Test Time: 01:47:48 [place]: [place] MEASUREMENT RESULTS: Intervals: Rate: 87 CT: 136 QRSD: 70 QT: 382 QTc: 459 [place]: P: 79 CT: 136 QRS: 74 T: 73 INTERPRETIVE STATEMENTS: Normal sinus rhythm Septal infarct, age undetermined Abnormal ECG Compared to ECG 06/17/2023 18:51:49 Myocardial infarct finding now present Sinus arrhythmia no longer present Electronically Signed On 08-28-23 12:10:53 CDT by Efraín Pitts
== END 2023-08-27 06:04 | disposition home or self-care (01) ==
LOC: ER 00:53
DX: J44.1 Chronic obstructive pulmonary disease with (acute) exacerbation (principal); F41.9 Anxiety disorder, unspecified
CPT/HCPCS: 93005; 85025; 80048; 36415; 83735; 85610; 80076; 84484; 83880; 71045; 94640; 96375; 96374; 99285; J7613; J7644; J2919

== ENCOUNTER 2024-03-20 10:06 | Inpatient (IN) | payer OTHER ==
--- OUTSIDE RECORDS SUMMARY | 2024-03-20 10:18 | XMS REPORT | Continuity of Care Document ---
Author Name Unknown Address [address] [facility] [address] [place] [address] [facility] thconnect Address [address] [facility] 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 Role Phone Lui Yolanda ARREDONDO Primary Care Physician [phone] MECHE LAM Attending Clinician Jina Dockery MD Attending Clinician [phone] JINA FELTON Attending Clinician Unavailable COLLIN ORTEGA Attending Clinician Unavailable COLLIN ORTEGA Attending Clinician Unavailable Meche Lam MD Attending Clinician + [phone] Doctor Unassigned, [place] Attending Clinician Bradley Sandhu MD Attending Clinician [phone] Meche Lechuga MD Attending Clinician [phone] Only, Adc Test Attending Clinician Unavailable Pob, [facility] Main Attending Clinician UnavailJn Walker Attending Clinician Unavailable MECHE LAM Admitting Clinician JINA Dockery Admitting Clinician Unavailable Meche Lam MD Admitting Clinician [phone] Jn Barrios Admitting Clinician Unavailable Payers Payer Name Policy Type Policy Number Effective Date Expirati on Date Source [facility] MICHAEL BAÑUELOS [id number] 2020 00:00:00 Problems Condition Name Condition Details Condition Category Status Onset Date Resolution Date Last Treatment Date Treating Clinician Comments Source Deep vein thrombosis (DVT) of proximal lower extremity, unspecifie d chronicity , unspecifie d laterality Deep vein thrombosis (DVT) of proximal lower extremity, unspecifie d chronicity , unspecifie d laterality Disease Active 2023-02 00:00: 00 [facility] Obesity (BMI 30-39.9) Obesity (BMI 30-39.9) Disease Active 2023-02 00:00: 00 [facility] Tachycardi a Tachycardi a Disease Active 2023-02 00:00: 00 [facility] Bradycardi a Bradycardi a Disease Active 2023-02 00:00: 00 [facility] Bronchitis Bronchitis Disease Active 02-19 00:00: 00 [facility] COPD exacerbati on COPD exacerbati on Disease Active 2014-02 00:00: 00 [facility] Allergies, Adverse Reactions, Alerts Allergy Name Allergy Type Status Severity Reaction(s) Onset Date Inactive Date Treating Clinician Comments Source NO KNOWN ALLERGIE S Drug Class Active [facility] Social History Social Habit Start Date Stop Date Quantity Comments Source [facility] History of tobacco use Current smoker [facility] Alcoholic beverage intake 2024-01-01 00:00:00 2024-01-01 00:00:00 Ex-drinker (finding) [facility] History of Social function 2024-01-01 00:00:00 2024-01-01 00:00:00 [facility] Tobacco use and exposure 2022-05-31 00:00:00 2022-05-31 00:00:00 Smokeless tobacco non-user [facility] Alcohol intake 2022-05-31 00:00:00 2022-05-31 00:00:00 Ex-drinker (finding) [facility] Exposure to SARS-CoV-2 (event) 2022-05-15 00:00:00 2022-05-25 13:29:00 Not sure [facility] Sex assigned at 1970 00:00:00 1970 00:00:00 [facility] Smoking Status Start Date Stop Date Source Ex-smoker 2022-05-31 00:00:00 2022-05-31 00:00:00 [facility] Medications Ordered Medication Name Filled Medication Name Start Date Stop Date Current Medication? Ordering Clinician Indication Dosage Frequency Signature (SIG) Comments Components Source duloxetine 20 mg capsule,del ayed release 02-23 00:00: 00 Yes 1mg Chris Doherty albuterol sulfate HFA 90 mcg/actuati on aerosol inhaler 2023-02 00:00: 00 Yes mcg/act uation Chris Doherty cetirizine 10 mg tablet 2023-02 00:00: 00 Yes 1mg Chris Doherty naproxen 500 mg tablet 2023-02 00:00: 00 Yes 1mg Chris Doherty azithromyci n 250 mg tablet 2023-02 00:00: 00 Yes 1mg Chris Doherty methocarbam ol 500 mg tablet 2023-02 00:00: 00 Yes 1mg Chris Doherty diclofenac potassium 50 mg tablet 2023-02 00:00: 00 Yes 1mg Chris Doherty duloxetine 20 mg capsule,del ayed release 2023-02 00:00: 00 Yes 1mg Chris Doherty doxepin 10 mg capsule 2023-02 14:30: 36 Yes 5mg Take 5 mg by mouth at bedtime. [facility] spironolact one 25 mg tablet 2023-02 14:30: 36 Yes 25mg Take 1 tablet by mouth in the morning. [facility] rivaroxaban 10 mg tablet 2023-02 14:29: 33 12-31 00:00 :00 Yes 10mg Take by mouth daily. [facility] predniSONE 10 mg tablet 2023-02 14:29: 31 Yes 10mg Take 1 tablet by mouth in the morning. [facility] apixaban 5 mg tablet 2023-02- 14:14: 11 12-31 00:00 :00 No 5mg Take 1 tablet by mouth in the morning and 1 tablet in the evening. [facility] albuterol sulfate HFA 90 mcg/actuati on aerosol inhaler 2023-02 00:00: 00 Yes mcg/act uation Chris Doherty albuterol sulfate HFA 90 mcg/actuati on aerosol inhaler 2023-02 00:00: 00 Yes mcg/act uation Chris Doherty ipratropium 0.5 mg-albutero l 3 mg (2.5 mg base)/3 mL nebulizatio n soln 10-28 00:00: 00 Yes mg base)/3 mL Chris Doherty albuterol sulfate HFA 90 mcg/actuati on aerosol inhaler 10-13 00:00: 00 Yes mcg/act uation Chris Doherty ipratropium 0.5 mg-albutero l 3 mg (2.5 mg base)/3 mL nebulizatio n soln 10-13 00:00: 00 Yes 1mg base)/3 mL Chris Doherty prednisone 10 mg tablet 10-13 00:00: 00 Yes 1mg Chris Doherty baclofen 5 mg tablet 8 00:00: 00 Yes 1mg Chris Doherty doxycycline hyclate 100 mg capsule 10-13 00:00: 00 Yes 1mg Chris Doherty azithromyci n 250 mg tablet -24 00:00: 00 Yes mg Chris Doherty baclofen 5 mg tablet 7-24 00:00: 00 Yes 1mg Chris Doherty ipratropium 0.5 mg-albutero l 3 mg (2.5 mg base)/3 mL nebulizatio n soln 6-20 00:00: 00 Yes 1mg base)/3 mL Chris Doherty ciprofloxac in 500 mg tablet 4-09 00:00: 00 Yes 1mg Chris Doherty prednisone 20 mg tablet -09 00:00: 00 Yes 2mg Chris Doherty OZEMPIC 4 MG/3ML SOPN -09 00:00: 00 Yes Chris Doherty albuterol sulfate HFA 90 mcg/actuati on aerosol inhaler - 00:00: 00 Yes mcg/act uation Chris Doherty albuterol sulfate HFA 90 mcg/actuati on aerosol inhaler - 00:00: 00 Yes mcg/act uation Chris Doherty prednisone 20 mg tablet -08 00:00: 00 Yes 2mg Chris Doherty doxycycline hyclate 100 mg capsule - 00:00: 00 Yes 1mg Chris Doherty OZEMPIC 2 MG/3ML SOPN - 00:00: 00 Yes 2 Chris Doherty INHALE 2 PUFFS EVERY 3-4 HOURS PRN WHEEZING, COUGH, SHORTNESS OF BREATH 2-14 00:00: 00 Yes [id number] Chris Doherty INJECT 0.25 MG A WEEK FOR 4 WEEKS, THEN INCREASE TO 0.5 MG A WEEK 03-29 00:00: 00 Yes 23 Chris Doherty albuterol sulfate HFA 90 mcg/actuati on aerosol inhaler - 00:00: 00 Yes mcg/act uation Chris Doherty prednisone 20 mg tablet 18 00:00: 00 Yes mg Chris Doherty USE 1 UNIT DOSE IN NEBULIZER EVERY 4 HOURS NEEDED. 18 00:00: 00 Yes [id number] Chris Doherty TAKE 5 ML EVERY 6 HOURS NEEDED. 18 00:00: 00 07-02 00:00 :00 No [id number] Chris Doherty TAKE 2 TABLETS ON DAY 1 THEN TAKE 1 TABLET A DAY FOR 4 DAYS. 18 00:00: 00 07-02 00:00 :00 No 250 Chris Doherty TAKE 1 CAPSULE EVERY MORNING. 2022-02 2-19 00:00: 00 07-02 00:00 :00 No 20 Chris Doherty TAKE 1 CAPSULE BY MOUTH ONCE DAILY 2022-02 00:00: 00 07-02 00:00 :00 No 40 Chris Doherty TAKE 1 TABLET BY MOUTH ONCE A DAILY FOR 5 DAYS 2022-02 00:00: 00 Yes Chris Doherty TAKE 1 TABLET ONCE DAILY FOR 5 DAYS 2022-02 00:00: 00 Yes Chris Doherty TAKE 1 TABLET BY MOUTH EVERY DAY 2022-02 00:00: 00 Yes Chris Doherty TAKE BY MOUTH 5 ML 4 TIMES A DAY FOR NEEDED FOR COUGH 2022-02 00:00: 00 Yes Chris Doherty TAKE 1 TABLET BY MOUTH TWICE A DAY FOR 5 DAYS,THEN 1 TABLET DAILY FOR 5 DAYS,THEN 1/2 TABLET DAILY 2022-02 00:00: 00 Yes Chris Doherty TAKE 10 MILLILITER BY MOUTH TWICE A DAY NEEDED COUGH 2022-02 00:00: 00 Yes Chris Doherty USE 1 VIAL IN NEBULIZER EVERY 12 HOURS 2022-02 00:00: 00 Yes Chris Doherty USE 1 VIAL IN NEBULIZER TWICE A DAY 2022-02 00:00: 00 Yes Crhis Doherty USE 1 VIAL IN NEBULIZER EVERY 6 HOURS NEEDED FOR SHORTNESS OF BREATH 2022-02 00:00: 00 Yes Chris Doherty TAKE 1 CAPSULE BY MOUTH ONCE DAILY 2022-02 00:00: 00 07-02 00:00 :00 No 40 Chris Doherty TAKE 1 TABLET 3 TIMES DAILY AFTER MEALS NEEDED 2022-02 00:00: 00 07-02 00:00 :00 No 25 Chris Doherty TAKE 1 CAPSULE EVERY MORNING. 2022-02 025 00:00: 00 07-02 00:00 :00 No 20 Chris Doherty TAKE 2 TABS DAY 1 AND 2 AND 1 TAB DAY 3-5 2022-02 0- 00:00: 00 07-02 00:00 :00 No 20 Chris Doherty TAKE 1 TABLET TWICE DAILY WITH FOOD. 2022-02 0-06 00:00: 00 07-02 00:00 :00 No [id number] Chris Doherty NITROFURANT OIN MONOHYDRATE /MACROCRY STALS 100 MG 11-15 00:00: 00 Yes Chris Doherty TIZANIDINE HYDROCHLORI DE 4 MG TABS 11-15 00:00: 00 Yes Chris Doherty TAKE 1 TABLET DAILY. 11-15 00:00: 00 07-02 00:00 :00 No 10 Chris Doherty INHALE 2 PUFFS EVERY 3-4 HOURS PRN WHEEZING, COUGH, SHORTNESS OF BREATH 11-15 00:00: 00 07-02 00:00 :00 No [id number] Chris Doherty TAKE 1 CAPSULE TWICE DAILY. 11-15 00:00: 00 07-02 00:00 :00 No 100 Chris Doherty USE 1 UNIT DOSE IN NEBULIZER EVERY 4 HOURS NEEDED. 11-15 00:00: 00 07-02 00:00 :00 No [id number] Chris Doherty TAKE 1 TAB DAILY FOR 1 WEEK THEN 1 TAB TWICE A DAY 11-15 00:00: 00 07-02 00:00 :00 No 890 Chris Doherty TAKE 1 TABLET EVERY 8 HOURS WITH FOOD NEEDED. 11-15 00:00: 00 07-02 00:00 :00 No 800 Chris Doherty 1 CAPSULE EVERY 6 TO 8 HOURS 11-15 00:00: 00 07-02 00:00 :00 No 4 Chris Doherty TAKE 1 CAPSULE EVERY MORNING. 11-13 00:00: 00 07-02 00:00 :00 No 20 Chris Doherty TAKE 1 CAPSULE BY MOUTH ONCE DAILY 11-13 00:00: 00 07-02 00:00 :00 No 40 Chris Doherty TIZANIDINE HYDROCHLORI DE 4 MG TABS 10-11 00:00: 00 Yes Chris Doherty TAKE ONE TABLET DAILY 10-11 00:00: 00 07-02 00:00 :00 No 60 Chris Doherty TAKE 1 TABLET 3 TIMES DAILY AFTER MEALS NEEDED 10-11 00:00: 00 07-02 00:00 :00 No 25 Chris Doherty 1 CAPSULE EVERY 6 TO 8 HOURS 8-24 00:00: 00 07-02 00:00 :00 No 4 Chris Doherty TAKE 1 TABLET EVERY 8 HOURS WITH FOOD NEEDED. 24 00:00: 00 07-02 00:00 :00 No 800 Chris Doherty ALBUTEROL SULFATE HFA 108 (90 Base) MCG/ACT AERS 8-14 00:00: 00 Yes Chris Doherty INHALE 1 PUFF DAILY 09-17 00:00: 00 Yes Chris Doherty FLUOXETINE HCL 20 MG 09-13 00:00: 00 Yes Chris Doherty TRELEGY ELLIPTA 100-62.5-25 MCG/ACT AEPB 09-13 00:00: 00 Yes Chris Doherty HYDROXYZINE HYDROCHLORI DE 25 MG TABS 09-11 00:00: 00 Yes Chris Doherty TAKE ONE TABLET DAILY 09-11 00:00: 00 07-02 00:00 :00 No 60 Chris Doherty ALBUTEROL SULFATE (2.5 MG/3ML) 0.083% NEBU 09-07 00:00: 00 Yes Chris Doherty TAKE 1 TABLET DAILY. 09-07 00:00: 00 07-02 00:00 :00 No 500 Chris Doherty INHALE 2 PUFFS EVERY 3-4 HOURS PRN WHEEZING, COUGH, SHORTNESS OF BREATH 09-07 00:00: 00 07-02 00:00 :00 No [id number] Chris Doherty BREZTRI AEROSPHERE 160-9-4.8 MCG/ACT AERO 08-20 00:00: 00 Yes Chris Doherty PREDNISONE 10 MG TABS 08-20 00:00: 00 Yes Chris Doherty TAKE 1 CAPSULE BY MOUTH ONCE DAILY 07-16 00:00: 00 07-02 00:00 :00 No 40 Chris Doherty TAKE 1 TABLET TWICE DAILY AFTER MEALS NEEDED. 07-16 00:00: 00 07-02 00:00 :00 No 25 Chris Doherty INHALE 2 PUFFS EVERY 3-4 HOURS PRN WHEEZING, COUGH, SHORTNESS OF BREATH 06-21 00:00: 00 07-02 00:00 :00 No [id number] Chris Doherty USE 1 UNIT DOSE EVERY 4-6 HOURS NEEDED FOR WHEEZING . 06-21 00:00: 00 07-02 00:00 :00 No [id number] Chris Doherty INHALE 2 PUFFS TWICE DAILY. RINSE MOUTH AFTER USE. 06-21 00:00: 00 07-02 00:00 :00 No [id number] Chris Doherty TAKE 1 TABLET TWICE DAILY AFTER MEALS NEEDED. 06-18 00:00: 00 07-02 00:00 :00 No 25 Chris Doherty TAKE 1 CAPSULE BY MOUTH ONCE DAILY 06-18 00:00: 00 07-02 00:00 :00 No 40 Chris Doherty ceFAZolin (ANCEF) injection 05-31 17:19: 00 05-31 17:28 :42 No PRN, Starting on Missy 05/31/22 at 1219, Until Missy 05/31/22 at 1228, IRA, Intra-op [facility] neomycin-po lymyxin-dex amethasone (MAXITROL) 3.5 mg/g-10,000 unit/g-0.1 % ophthalmic ointment 05-31 17:19: 00 05-31 17:28 :42 No PRN, Starting on Missy 05/31/22 at 1219, Until Missy 05/31/22 at 1228, Routine, Intra-op [facility] gentamicin injection 05-31 17:19: 00 05-31 17:28 :42 No PRN, Starting on Missy 05/31/22 at 1219, Until Missy 05/31/22 at 1228, IRA, Intra-op [facility] dexamethaso ne (DECADRON PHOSPHATE) injection 05-31 17:19: 00 05-31 17:28 :42 No PRN, Starting on Missy 4/13/23 at 1219, Until Missy 05/31/22 at 1228, Routine, Intra-op Univers it[facility] chondroitin sulf-sod hyaluronate (DUOVISC VISCO ELASTIC) intraocular injection 05-31 17:11: 00 05-31 17:28 :42 No PRN, Starting on Missy 05/31/22 at 1211, Until Missy 05/31/22 at 1228, Routine, Intra-op Univers it[facility] tetracaine (PONTOCAINE ) 0.5 % ophthalmic drops 05-31 17:01: 00 05-31 17:28 :42 No PRN, Starting on Missy 05/31/22 at 1201, Until Missy 05/31/22 at 1228, Routine[facility] 05-31 17:01: 00 05-31 17:28 :42 No PRN, Starting on Missy 05/31/22 at 1201, Until Missy 05/31/22 at 1228, Intra-op Univers [facility] water for irrigation irrigation solution 05-31 16:59: 00 05-31 17:28 :42 No PRN, Starting on Missy 05/31/22 at 1159, Until Missy 05/31/22 at 1228, Routine, Intra-op [facility] sodium chloride (NS) injection 05-31 16:58: 00 05-31 17:28 :42 No PRN, Starting on Missy 05/31/22 at 1158, Until Missy 05/31/22 at 1228, Routine, Intra-op [facility] EPINEPHrine (PF) 1:1,000 (1 mg/mL) (ADRENALIN (PF)) injection 05-31 16:58: 00 05-31 17:28 :42 No PRN, Starting on Missy 05/31/22 at 1158, Until Missy 05/31/22 at 1228, Routine, Intra-op [facility] balanced salt soln no.2 irrig. (BSS) ophthalmic solution 2023-0 4-13 16:57: 00 05-31 17:28 :42 No PRN, Starting on Missy 05/31/22 at 1157, Until Missy 05/31/22 at 1228, Routine, Intra-op [facility] cyclopent 1%-tropic 1%-phenyl 2.5%-ketor 0.5% (MYDRIATIC #5) ophthalmic solution syringe 0.5 mL 05-31 15:15: 00 05-31 15:32 :00 No .5mL 0.5 mL, Left Eye, ONCE, 1 dose, On Missy 05/31/22 at 1015, Routine, DSU Pre-op [facility] lactated ringers IV infusion 1,000 mL 05-31 15:15: 00 05-31 15:34 :00 No 1000mL at 42 mL/hr, 1,000 mL, IV Infusion, ONCE, 1 dose, On Missy 05/31/22 at 1015, Routine, DSU Pre-op [facility] apixaban 5 mg tablet 05-31 13:21: 15 Yes 5mg Take 1 tablet by mouth in the morning and 1 tablet in the evening. [facility] rivaroxaban (XARELTO) 10 mg tablet 05-31 13:21: 15 Yes 10mg Take 1 tablet by mouth in the morning. [facility] predniSONE 10 mg tablet 05-31 13:21: 15 Yes 10mg Take 1 tablet by mouth in the morning. [facility] fluticasone -umeclidin- vilanter (TRELEGY ELLIPTA) 200-62.5-25 mcg DsDv 05-31 13:21: 15 Yes 1{puff} Inhale 1 Puff in the morning. [facility] montelukast 10 mg tablet 05-31 13:21: 15 Yes 10mg Take 1 tablet by mouth as needed. [facility] albuterol (PROAIR HFA) 90 mcg/actuati on inhaler 05-31 13:21: 15 Yes 2{puff} Inhale 2 Puffs every 6 (six) hours as needed for Wheezing or Shortness of Breath. [facility] KETOROLAC TROMETHAMIN E 0.5 % SOLN 04 00:00: 00 Yes Chris Doherty OFLOXACIN 0.3 % SOLN 4-04 00:00: 00 Yes Chris Doherty PREDNISOLON E ACETATE 1 % SUSP 4-04 00:00: 00 Yes Chris Doherty TAKE 1 TABLET DAILY. 05-21 00:00: 00 07-02 00:00 :00 No 500 Chris Doherty FLUOXETINE HYDROCHLORI DE 40 MG 05-17 00:00: 00 Yes Chris Doherty USE 1 VIAL IN NEBULIZER EVERY 6 HOURS NEEDED 05-05 00:00: 00 Yes Chris Doherty TAKE 1 TABLET BY MOUTH EVERY 12 HOURS FOR 10 DAYS 18 00:00: 00 07-02 00:00 :00 No Chris Rikki Doherty TAKE 10 MILILLITERS BY MOUTH EVERY 6 HOURS 18 00:00: 00 07-02 00:00 :00 No Chris Doherty TAKE 1 TABLET BY MOUTH EVERY DAY AT BEDTIME FOR 30 DAYS 3- 00:00: 00 Yes Chris Doherty TRELEGY ELLIPTA 200-62.5-25 MCG/ACT AEPB 3-09 00:00: 00 Yes Chris Doherty XARELTO 10 MG TABS 04-23 00:00: 00 07-02 00:00 :00 No Chris Rikki Doherty TAKE 2 TABLETS ON DAY 1 THEN TAKE 1 TABLET A DAY FOR 4 DAYS. 04-17 00:00: 00 07-02 00:00 :00 No 250 Chris Doherty TAKE DIRECTED. 04-17 00:00: 00 07-02 00:00 :00 No 4 Chris Doherty TAKE 1 CAPSULE EVERY MORNING. 04-17 00:00: 00 07-02 00:00 :00 No 10 Chris Doherty TAKE 10 ML 4-6 HOURS NEEDED 1-21 00:00: 00 07-02 00:00 :00 No [id number] Chris Doherty TAKE DIRECTED. 03-10 00:00: 00 07-02 00:00 :00 No 4 Chris Doherty LEVOFLOXACI N 500 MG TABS 2021-02 00:00: 00 07-02 00:00 :00 No Chris Doherty TAKE 1 TABLET 3 TIMES DAILY NEEDED. 2021-02 00:00: 00 07-02 00:00 :00 No 10 Chris Doherty TAKE 2 TABS DAY 1 AND 2 AND 1 TAB DAY 3-5 2021-02 00:00: 00 07-02 00:00 :00 No Chris Doherty INHALE 1 PUFF BY MOUTH EVERY DAY 2021-02 00:00: 00 Yes Chris Doherty TAKE 1 AND 1/2 TABLETS DAILY. 2021-02 [...] No TRELEGY ELLIPTA 100-62.5-25 MCG/ACT AEPB 2021-02 00:00: 00 No Dose Unknown 2021-02 00:00: 00 No ESZOPICLONE 2 MG TABS 2021-02 00:00: 00 No TAKE 1 TABLET BY MOUTH EVERY DAY 2021-02 00:00: 00 No Dose Unknown 2021-02 00:00: 00 No SYMBICORT 160-4.5 MCG/ACT AERO 2021-02 00:00: 00 No Dose Unknown 2021-02 00:00: 00 No Dose Unknown 2021-02 00:00: 00 No Dose Unknown 2021-02 00:00: 00 No TAKE 1 TABLET BY MOUTH EVERY DAY 2021-02 00:00: 00 No TAKE 1 AND 1/2 TABLETS DAILY. 2021-02 00:00: 00 07-02 00:00 :00 No Chris Doherty TAKE 1 CAPSULE EVERY MORNING. 2021-02 00:00: 00 07-02 00:00 :00 Isabel Doherty USE 1 UNIT DOSE IN NEBULIZER EVERY 4 HOURS NEEDED. 2021-02 00:00: 00 07-02 00:00 :00 No [id number] dalton Doherty PREDNISONE 20 MG TABS 2021-02 00:00: 00 07-02 00:00 :00 Isabel Doherty TAKE 1 CAPSULE BY MOUTH THREE TIMES DAILY NEEDED FOR COUGH 2021-02 00:00: 00 07-02 00:00 :00 Isabel Doherty TAKE 1 TABLET BY MOUTH EVERY DAY AT BEDTIME FOR 30 DAYS 2021-02 00:00: 00 07-02 00:00 :00 Isabel Doherty MONTELUKAST SODIUM 10 MG TABS 2021-02 00:00: 00 07-02 00:00 :00 Isabel Doherty TAKE 1 (15 MG) TABLET BY MOUTH TWICE A DAY FOR 21 DAYS, THEN 20MG TABLET ONCE DAILY WITH DINNER 2022-1 2-15 00:00: 00 07-02 00:00 :00 No Chris Doherty FLUOXETINE HCL 20 MG CAPS 2021-02 2-15 00:00: 00 07-02 00:00 :00 No Chris Doherty PREDNISONE 10 MG TABS 2021-02 2 00:00: 00 07-02 00:00 :00 No Chris Doherty TAKE 1 TABLET BY MOUTH EVERY DAY FOR 30 DAYS 2021-02 2 00:00: 00 07-02 00:00 :00 No Chris Doherty TAKE 1 TABLET BY MOUTH EVERY 6 HOURS NEEDED ANXIETY 2021-02 2 00:00: 00 07-02 00:00 :00 No Chris Doherty Dose Unknown 2021-02 2 00:00: 00 07-02 00:00 :00 No Chris Doherty ESZOPICLONE 2 MG TABS 2021-02 00:00: 00 07-02 00:00 :00 No Chris Doherty TAKE 1 TABLET BY MOUTH EVERY DAY 2021-02 2 00:00: 00 07-02 00:00 :00 No Chris Doherty Dose Unknown 2021-02 2 00:00: 00 07-02 00:00 :00 No Chris Doherty SYMBICORT 160-4.5 MCG/ACT AERO 2021-02 2 00:00: 00 07-02 00:00 :00 No Chris Doherty Dose Unknown 2021-02 2 00:00: 00 07-02 00:00 :00 No Chris Doherty Dose Unknown 2021-02 2 00:00: 00 07-02 00:00 :00 No Chris Doherty Dose Unknown 2021-02 2 00:00: 00 07-02 00:00 :00 No Chris Doherty ALBUTEROL SULFATE HFA 108 (90 Base) MCG/ACT AERS 2021-02 2 00:00: 00 07-02 00:00 :00 No Chris Doherty TAKE 1 TABLET BY MOUTH EVERY DAY 2021-02 2 00:00: 00 07-02 00:00 :00 No Chris Rikki Doherty Dose Unknown 2021-02 00:00: 00 07-02 00:00 :00 No Chris Rikki Doherty TAKE 1 CAPSULE EVERY MORNING. 2021-02 00:00: 00 07-02 00:00 :00 No 20 Chris Rikki Doherty TAKE 1 TABLET TWICE DAILY NEEDED. 2021-02 00:00: 00 07-02 00:00 :00 No 50 Chris Rikki Doherty TRELEGY ELLIPTA 200-62.5-25 MCG/ACT AEPB 2021-02 00:00: 00 07-02 00:00 :00 No Chris Rikki Doherty TRELEGY ELLIPTA 200-62.5-25 MCG/ACT AEPB 2021-02 00:00: 00 07-02 00:00 :00 No Chris Rikki Doherty INHALE 2 PUFFS BY MOUTH EVERY 6 HOURS NEEDED 2021-02 00:00: 00 07-02 00:00 :00 No Chris Doherty TRELEGY ELLIPTA 100-62.5-25 MCG/ACT AEPB 2021-02 00:00: 00 07-02 00:00 :00 No Hcris Rikki Doherty TAKE 1 CAPSULE BY MOUTH THREE TIMES A DAY NEEDED COUGH 2021-02 0 00:00: 00 07-02 00:00 :00 No Chris Rikki Doherty TAKE 1 TABLET TWICE A DAY X 3 DAYS, THEN 1 TAB DAILY X 3 DAYS, THEN 1/2 TAB DAILY X 4 DAYS 2021-02 0-03 00:00: 00 07-02 00:00 :00 No Chris Rikki Doherty TAKE 1 TABLET BY MOUTH EVERY DAY FOR 90 DAYS 10-31 00:00: 00 No TAKE 1 TABLET BY MOUTH EVERY DAY FOR 90 DAYS 10-31 00:00: 00 07-02 00:00 :00 No Chris Rikki Doherty TAKE 1 TABLET BY MOUTH EVERY DAY FOR 90 DAYS 09-29 00:00: 00 Yes 10 Chris Rikki Chas TAKE 1 TABLET BY MOUTH EVERY DAY FOR 90 DAYS 09-29 00:00: 00 No 10 TAKE 1 TABLET BY MOUTH EVERY DAY FOR 90 DAYS 0 8-12 00:00: 00 No 10 TAKE 1 TABLET BY MOUTH EVERY DAY FOR 90 DAYS 0 - 00:00: 00 Yes 20 Chris Doherty TAKE 1 TABLET BY MOUTH EVERY DAY FOR 90 DAYS 0 7- 00:00: 00 No 20 TAKE 1 TABLET BY MOUTH EVERY DAY FOR 90 DAYS 0 - 00:00: 00 No 20 Lexapro 5 mg tablet 0 08-30 00:00: 00 Yes 1mg Chris Doherty hydroxyzine HCl 25 mg tablet 0 08-30 00:00: 00 Yes 1mg Chris Doherty Effexor XR 75 mg capsule,ext ended release 0 08-30 00:00: 00 Yes 1mg Chris Doherty Effexor XR 150 mg capsule,ext ended release 0 08-30 00:00: 00 Yes 1mg Chris Doherty TAKE 1 TABLET BY MOUTH EVERY DAY FOR 30 DAYS 0 08-30 00:00: 00 Yes 25 Chris Doherty INHALE 1 PUFF BY MOUTH EVERY DAY 0 08-30 00:00: 00 Yes Chris Doherty Lexapro 5 mg tablet 0 08-30 00:00: [...] Dose Unknown 0 08-30 00:00: 00 No TAKE 1 TABLET BY MOUTH EVERY DAY FOR 30 DAYS 0 08-30 00:00: 00 No 25 INHALE 1 PUFF BY MOUTH EVERY DAY 0 08-30 00:00: 00 No Dose Unknown 0 08-30 00:00: 00 07-02 00:00 :00 No 25 Chris Doherty TAKE 1 TABLET BY MOUTH EVERY DAY FOR 90 DAYS 0 - 00:00: 00 07-02 00:00 :00 No Chris Doherty Singulair 10 mg tablet 0 08-14 00:00: 00 Yes 1mg Chris Doherty Singulair 10 mg tablet 0 08-14 00:00: 00 No 1mg Dose Unknown 0 08-14 00:00: 00 No Symbicort 160 mcg-4.5 mcg/actuati on HFA aerosol inhaler 0 -16 00:00: 00 Yes 2mcg/ac tuation Chris Doherty ProAir HFA 90 mcg/actuati on aerosol inhaler 0 616 00:00: 00 Yes 1mcg/ac tuation Chris Doherty Symbicort 160 mcg-4.5 mcg/actuati on HFA aerosol inhaler 0 -16 00:00: 00 No 2mcg/ac tuation ProAir HFA 90 mcg/actuati on aerosol inhaler 0 16 00:00: 00 No 1mcg/ac tuation Dose Unknown 0 6-16 00:00: 00 No venlafaxine ER 225 mg tablet,exte nded release 24 hr 0 -13 00:00: 00 Yes 1mg Chris Doherty hydroxyzine HCl 25 mg tablet 0 5-13 00:00: 00 Yes 1mg Chris Doherty venlafaxine ER 225 mg tablet,exte nded release 24 hr 0 -13 00:00: 00 No 1mg hydroxyzine HCl 25 mg tablet 0 5-13 00:00: 00 No 1mg Dose Unknown 0 5-13 00:00: 00 No Dose Unknown 0 -13 00:00: 00 No Dose Unknown 0 5-13 00:00: 00 07-02 00:00 :00 No 225 Chris Doherty Dose Unknown 0 4-14 00:00: 00 Yes Chris Doherty Dose Unknown 0 4-14 00:00: 00 Yes Chris Doherty Dose Unknown 2021-0 4-14 00:00: 00 No Dose Unknown 2021-0 4-14 00:00: 00 No Dose Unknown 2021-0 4-14 00:00: 00 No Dose Unknown 2021-0 4-14 00:00: 00 No ProAir HFA 90 mcg/actuati on aerosol inhaler 0 3-18 00:00: 00 Yes 1mcg/ac tuation Chris Doherty prednisone 20 mg tablet 0 3-18 00:00: 00 Yes mg Chris Doherty ipratropium 0.5 mg-albutero l 3 mg (2.5 mg base)/3 mL nebulizatio n soln 0 3-18 00:00: 00 Yes 3mg base)/3 mL Chris Doherty ProAir HFA 90 mcg/actuati on aerosol inhaler [...] 0 3-18 00:00: 00 No Dose Unknown 2021-0 3-17 00:00: 00 Yes Chris Doherty Dose Unknown 2021-0 3-17 00:00: 00 Yes Chris Doherty Dose Unknown 2021-0 3-17 00:00: 00 Yes Chris Doherty Dose Unknown 2021-0 3-17 00:00: 00 No Dose Unknown 2021-0 3-17 00:00: 00 No Dose Unknown 2021-0 3-17 00:00: 00 No Dose Unknown 2021-0 3-17 00:00: 00 No Dose Unknown 2021-0 3-17 00:00: 00 No Dose Unknown 2021-0 3-17 00:00: 00 No Dose Unknown 2021-0 2-21 00:00: 00 Yes Chris Doherty Dose Unknown 2022-0 2-21 00:00: 00 Yes Chris Doherty Dose Unknown 2022-0 2-21 00:00: 00 No Dose Unknown 2022-0 2-21 00:00: 00 No Dose Unknown 2-0 2-21 00:00: 00 No Dose Unknown 2022-0 2-21 00:00: 00 No Dose Unknown 2022-0 2-17 00:00: 00 Yes Chris Doherty venlafaxine ER 150 mg capsule,ext ended release 24 hr 2-0 2-17 00:00: 00 Yes 1mg Chris Doherty Dose Unknown 2021-0 2-17 00:00: 00 No Dose Unknown 2-0 2-17 00:00: 00 No Dose Unknown 2-0 2-17 00:00: 00 No venlafaxine ER 150 mg capsule,ext ended release 24 hr 2-0 2-17 00:00: 00 No 1mg Dose Unknown 2021-0 1-19 00:00: 00 Yes Chris Doherty Dose Unknown 2021-0 1-19 00:00: 00 Yes Chris Doherty Dose Unknown 2-0 1-19 00:00: 00 No Dose Unknown 2-0 1-19 00:00: 00 No Dose Unknown 2-0 1-19 00:00: 00 No Dose Unknown 2-0 1-19 00:00: 00 No hydroxyzine HCl 25 mg tablet 2020-02 2- 00:00: 00 Yes 1mg Chris Doherty venlafaxine ER 150 mg capsule,ext ended release 24 hr 2020- 2-30 00:00: 00 Yes 1mg Chris Doherty hydroxyzine HCl 25 mg tablet 2020-02 2-30 00:00: 00 No 1mg venlafaxine ER 150 mg capsule,ext ended release 24 hr 2020-1 2-30 00:00: 00 No 1mg hydroxyzine HCl 25 mg tablet 2020-02 2-30 00:00: 00 No 1mg venlafaxine ER 150 mg capsule,ext ended release 24 hr 2020-02 2- 00:00: 00 No 1mg Singulair 10 mg tablet 2020-02 2- 00:00: 00 Yes 1mg Chris Doherty prednisone 20 mg tablet 2020-02 00:00: 00 Yes mg Chris Doherty Effexor XR 75 mg capsule,ext ended release 2020-02 00:00: 00 Yes 1mg Chris Doherty prednisone 20 mg tablet 2020-02 00:00: 00 No mg Dose Unknown 2020-02 00:00: 00 No Dose Unknown 2020-02 00:00: 00 No Singulair 10 mg tablet 2020-02 00:00: 00 No 1mg prednisone 20 mg tablet 2020-02 00:00: 00 No mg Effexor XR 75 mg capsule,ext ended release 2020-02 00:00: 00 No 1mg Symbicort 160 mcg-4.5 mcg/actuati on HFA aerosol inhaler 2020-02 00:00: 00 Yes 2mcg/ac tuation Chris Doherty Symbicort 160 mcg-4.5 mcg/actuati on HFA aerosol inhaler 2020-02 00:00: 00 No 2mcg/ac tuation ProAir HFA 90 mcg/actuati on aerosol inhaler 2020-02 00:00: 00 Yes 1mcg/ac tuation Chris Doherty Dose Unknown 2020-02 00:00: 00 No ProAir HFA 90 mcg/actuati on aerosol inhaler 2020-02 00:00: 00 No 1mcg/ac tuation prednisone 20 mg tablet 2020-02 00:00: 00 Yes 2mg Chris Doherty levofloxaci n 500 mg tablet 2020-02 00:00: 00 Yes 1mg Chris Doherty prednisone 20 mg tablet 2020-02 00:00: 00 No 2mg Dose Unknown 2020-02 00:00: 00 No prednisone 20 mg tablet 2020-02 00:00: 00 No 2mg levofloxaci n 500 mg tablet 2020-02 00:00: 00 No 1mg prednisone 20 mg tablet 2020-02 0- 00:00: 00 Yes 2mg Chris Doherty azithromyci n 250 mg tablet 2020-02 0- 00:00: 00 Yes mg Chris Doherty Tessalon Perles 100 mg capsule 2020-02 0-04 00:00: 00 Yes 1mg Chris Doherty prednisone 20 mg tablet 2020-02 0-04 00:00: 00 No 2mg Dose Unknown 2020-02 0- 00:00: 00 No prednisone 20 mg tablet 2020-02 0-04 00:00: 00 No 2mg azithromyci n 250 mg tablet 2020-02 0-04 00:00: 00 No mg Tessalon Perles 100 mg capsule 2020-02 0-04 00:00: 00 No 1mg ProAir HFA 90 mcg/actuati on aerosol inhaler 9 00:00: 00 Yes 1mcg/ac tuation Chris Doherty Dose Unknown 11-10 00:00: 00 No ProAir HFA 90 mcg/actuati on aerosol inhaler 11-10 00:00: 00 No 1mcg/ac tuation prednisone 20 mg tablet 8- 00:00: 00 Yes 2mg Chris Doherty levofloxaci n 500 mg tablet 8- 00:00: 00 Yes 1mg Chris Doherty prednisone 20 mg tablet 8- 00:00: 00 No 2mg Dose Unknown 8- 00:00: 00 No prednisone 20 mg tablet 8- 00:00: 00 No 2mg levofloxaci n 500 mg tablet 8- 00:00: 00 No 1mg Zithromax 250 mg tablet - 00:00: 00 Yes mg Chris Doherty Zithromax 250 mg tablet 09-15 00:00: 00 No mg ProAir HFA 90 mcg/actuati on aerosol inhaler 7- 00:00: 00 Yes 1mcg/ac tuation Chris Doherty ProAir HFA 90 mcg/actuati on aerosol inhaler 7- 00:00: 00 No 1mcg/ac tuation ProAir HFA 90 mcg/actuati on aerosol inhaler 7- 00:00: 00 No 1mcg/ac tuation Symbicort 160 mcg-4.5 mcg/actuati on HFA aerosol inhaler 0 6- 00:00: 00 Yes 2mcg/ac tuation Chris Doherty Symbicort 160 mcg-4.5 mcg/actuati on HFA aerosol inhaler 0 6- 00:00: 00 No 2mcg/ac tuation Symbicort 160 mcg-4.5 mcg/actuati on HFA aerosol inhaler 0 5- 00:00: 00 Yes 2mcg/ac tuation Chris Doherty ProAir HFA 90 mcg/actuati on aerosol inhaler 5- 00:00: 00 Yes 1mcg/ac tuation Chris Brandt Chas Augmentin 875 mg-125 mg tablet 5- 00:00: 00 Yes 1mg Chris Doherty hydroxyzine HCl 50 mg tablet - 00:00: 00 Yes 1mg Chris Doherty Effexor XR 75 mg capsule,ext ended release - 00:00: 00 Yes 1mg Chris Doherty Symbicort 160 mcg-4.5 mcg/actuati on HFA aerosol inhaler - 00:00: 00 No 2mcg/ac tuation ProAir HFA 90 mcg/actuati on aerosol inhaler - 00:00: 00 No 1mcg/ac tuation Augmentin 875 mg-125 mg tablet - 00:00: 00 No 1mg Dose Unknown -03 00:00: 00 No Effexor XR 75 mg capsule,ext ended release - 00:00: 00 No 1mg Symbicort 160 mcg-4.5 mcg/actuati on HFA aerosol inhaler -03 00:00: 00 No 2mcg/ac tuation ProAir HFA 90 mcg/actuati on aerosol inhaler 0 5-03 00:00: 00 No 1mcg/ac tuation Augmentin 875 mg-125 mg tablet 5-03 00:00: 00 No 1mg hydroxyzine HCl 50 mg tablet 0 5-03 00:00: 00 No 1mg Effexor XR 75 mg capsule,ext ended release - 00:00: 00 No 1mg ProAir HFA 90 mcg/actuati on aerosol inhaler 06-09 00:00: 00 Yes 1mcg/ac tuation Chris Doherty ProAir HFA 90 mcg/actuati on aerosol inhaler 06-09 00:00: 00 No 1mcg/ac tuation ProAir HFA 90 mcg/actuati on aerosol inhaler 06-09 00:00: 00 No 1mcg/ac tuation apixaban 5 mg tablet 05-26 13:00: 39 Yes 5mg Take 5 mg by mouth 2 (two) times daily. [facility] prednisone 20 mg tablet 05-13 00:00: 00 Yes 2mg Chris Doherty levofloxaci n 500 mg tablet 05-13 00:00: 00 Yes 1mg Chris Doherty prednisone 20 mg tablet 05-13 00:00: 00 No 2mg levofloxaci n 500 mg tablet 05-13 00:00: 00 No 1mg prednisone 20 mg tablet 05-13 00:00: 00 No 2mg levofloxaci n 500 mg tablet 05-13 00:00: 00 No 1mg ProAir HFA 90 mcg/actuati on aerosol inhaler 04-08 00:00: 00 Yes 1mcg/ac tuation Chris F Chas ipratropium 0.5 mg-albutero l 3 mg (2.5 mg base)/3 mL nebulizatio n soln - 00:00: 00 Yes 3mg base)/3 mL Chris Doherty ProAir HFA 90 mcg/actuati on aerosol inhaler - 00:00: 00 No 1mcg/ac tuation ipratropium 0.5 mg-albutero l 3 mg (2.5 mg base)/3 mL nebulizatio n soln 04-08 00:00: 00 No 3mg base)/3 mL ProAir HFA 90 mcg/actuati on aerosol inhaler - 00:00: 00 No 1mcg/ac tuation ipratropium 0.5 mg-albutero l 3 mg (2.5 mg base)/3 mL nebulizatio n soln 2-19 00:00: 00 No 3mg base)/3 mL ProAir HFA 90 mcg/actuati on aerosol inhaler 2-03 00:00: 00 Yes 1mcg/ac tuation Chris Brandt Chas ProAir HFA 90 mcg/actuati on aerosol inhaler 2-03 00:00: 00 No 1mcg/ac tuation ProAir HFA 90 mcg/actuati on aerosol inhaler 2- 00:00: 00 No 1mcg/ac tuation ProAir HFA 90 mcg/actuati on aerosol inhaler 2019-02 2- 00:00: 00 Yes 1mcg/ac tuation Chris Doherty montelukast 10 mg tablet 2019-02 2- 00:00: 00 Yes 1mg Chris Doherty ProAir HFA 90 mcg/actuati on aerosol inhaler 2019-02 2- 00:00: 00 No 1mcg/ac tuation montelukast 10 mg tablet 2019-02 2 00:00: 00 No 1mg ProAir HFA 90 mcg/actuati on aerosol inhaler 2019-02 2 00:00: 00 No 1mcg/ac tuation montelukast 10 mg tablet 2019-02 2- 00:00: 00 No 1mg Effexor XR 75 mg capsule,ext ended release 0 9-30 00:00: 00 Yes 1mg Chris Doherty Effexor XR 75 mg capsule,ext ended release 0 9-30 00:00: 00 No 1mg Effexor XR 75 mg capsule,ext ended release 0 9-30 00:00: 00 No 1mg ProAir HFA 90 mcg/actuati on aerosol inhaler 0 8-17 00:00: 00 Yes 1mcg/ac tuation Chris Brandt Chas ProAir HFA 90 mcg/actuati on aerosol inhaler 0 8-17 00:00: 00 No 1mcg/ac tuation ProAir HFA 90 mcg/actuati on aerosol inhaler 0 8-17 00:00: 00 No 1mcg/ac tuation Effexor XR 75 mg capsule,ext ended release 09-28 00:00: 00 Yes 1mg Chris Doherty Effexor XR 75 mg capsule,ext ended release 09-28 00:00: 00 No 1mg Effexor XR 75 mg capsule,ext ended release 09-28 00:00: 00 No 1mg prednisone 20 mg tablet 09-15 00:00: 00 Yes 2mg Chris Doherty Bromfed DM 2 mg-30 mg-10 mg/5 mL oral syrup 09-15 00:00: 00 Yes 75mg/5 mL Chris Doherty prednisone 20 mg tablet 09-15 00:00: 00 No 2mg Bromfed DM 2 mg-30 mg-10 mg/5 mL oral syrup 09-15 00:00: 00 No 75mg/5 mL prednisone 20 mg tablet 09-15 00:00: 00 No 2mg Bromfed DM 2 mg-30 mg-10 mg/5 mL oral syrup 09-15 00:00: 00 No 75mg/5 mL prednisone 20 mg tablet 09-08 00:00: 00 Yes 1mg Chris Doherty furosemide 20 mg tablet 09-08 00:00: 00 Yes 1mg Chris Doherty diclofenac sodium 75 mg tablet,yeni yed release 09-08 00:00: 00 Yes 1mg Chris Doherty prednisone 20 mg tablet 09-08 00:00: 00 [...] on HFA aerosol inhaler 08-04 00:00: 00 Yes 2mcg/ac tuation Chris Doherty Symbicort 160 mcg-4.5 mcg/actuati on HFA aerosol inhaler 08-04 00:00: 00 No 2mcg/ac tuation Symbicort 160 mcg-4.5 mcg/actuati on HFA aerosol inhaler 08-04 00:00: 00 No 2mcg/ac tuation Trelegy Ellipta 100 mcg-62.5 mcg-25 mcg powder for inhalation 07-28 00:00: 00 Yes 1mcg Chris Doherty Trelegy Ellipta 100 mcg-62.5 mcg-25 mcg powder for inhalation 07-28 00:00: 00 No 1mcg Trelegy Ellipta 100 mcg-62.5 mcg-25 mcg powder for inhalation 07-28 00:00: 00 No 1mcg bupropion HCl XL 150 mg 24 hr tablet, extended release 07-14 00:00: 00 Yes 1mg Chris Doherty buspirone 10 mg tablet 07-14 00:00: 00 Yes 1mg Chris Doherty montelukast 10 mg tablet 07-14 00:00: 00 Yes 1mg Chris Doherty albuterol sulfate 2.5 mg/3 mL (0.083 %) solution for nebulizatio n 07-14 00:00: 00 Yes 3/3 mL (0.083 %) Chris Doherty bupropion HCl XL 150 mg 24 hr [...] mL (0.083 %) solution for nebulizatio n 2020-0 5-27 00:00: 00 No 3/3 mL (0.083 %) ProAir HFA 90 mcg/actuati on aerosol inhaler 0 2-19 00:00: 00 Yes 1mcg/ac tuation Chris Doherty Trelegy Ellipta 100 mcg-62.5 mcg-25 mcg powder for inhalation 0 2-19 00:00: 00 Yes 1mcg Chris Doherty ProAir HFA 90 mcg/actuati on aerosol inhaler [...] tablet, extended release 0 2-12 00:00: 00 Yes 1mg Chris Doherty buspirone 10 mg tablet 0 2-12 00:00: 00 Yes 1mg Chris Doherty montelukast 10 mg tablet 0 2-12 00:00: 00 Yes 1mg Chris Doherty benzonatate 100 mg capsule 0 2-12 00:00: 00 Yes 12mg Chris Doherty bupropion HCl XL 150 mg 24 hr tablet, extended release 2019-0 2-12 00:00: 00 No 1mg bupropion HCl XL 150 mg 24 hr tablet, extended release 0 2-12 00:00: 00 No 1mg buspirone 10 mg tablet 0 2-12 00:00: 00 No 1mg montelukast 10 mg tablet 2019-0 2-12 00:00: 00 No 1mg benzonatate 100 mg capsule 2019-0 2-12 00:00: 00 No 12mg buspirone 10 mg tablet 2019-0 2-12 00:00: 00 No 1mg montelukast 10 mg tablet 2019-0 2-12 00:00: 00 No 1mg benzonatate 100 mg capsule 2020-0 2-12 00:00: 00 No 12mg Spiriva with HandiHaler 18 mcg and inhalation capsules 2019-0 2-07 00:00: 00 Yes 1mcg Chris Doherty Spiriva with HandiHaler 18 mcg and inhalation capsules 0 2-07 00:00: 00 No 1mcg Spiriva with HandiHaler 18 mcg and inhalation capsules 0 2-07 00:00: 00 No 1mcg Spiriva Respimat 2.5 mcg/actuati on solution for inhalation 0 2-06 00:00: 00 Yes 1mcg/ac tuation Chris Doherty Spiriva Respimat 2.5 mcg/actuati on solution for inhalation 0 2-06 00:00: 00 No 1mcg/ac tuation Spiriva Respimat 2.5 mcg/actuati on solution for inhalation 0 2-06 00:00: 00 No 1mcg/ac tuation ProAir HFA 90 mcg/actuati on aerosol inhaler 0 1-24 00:00: 00 Yes 1mcg/ac tuation Chris Rikki Chas albuterol sulfate 2.5 mg/3 mL (0.083 %) solution for nebulizatio n 0 1-24 00:00: 00 Yes 3/3 mL (0.083 %) Chris Rikki Chas ProAir HFA 90 mcg/actuati on aerosol inhaler 0 1-24 00:00: 00 No 1mcg/ac tuation albuterol sulfate 2.5 mg/3 mL (0.083 %) solution for nebulizatio n 0 1-24 00:00: 00 No 3/3 mL (0.083 %) ProAir HFA 90 mcg/actuati on aerosol inhaler 0 -24 00:00: 00 No 1mcg/ac tuation albuterol sulfate 2.5 mg/3 mL (0.083 %) solution for nebulizatio n 0 -24 00:00: 00 No 3/3 mL (0.083 %) Symbicort 160 mcg-4.5 mcg/actuati on HFA aerosol inhaler 1 2- 00:00: 00 Yes 2mcg/ac tuation Chris F Chas ProAir HFA 90 mcg/actuati on aerosol inhaler 2018-02 00:00: 00 Yes 1mcg/ac tuation Chris Doherty Advair Diskus 250 mcg-50 mcg/dose powder for inhalation 2018-02 00:00: 00 Yes 1mcg/do se Chris Doherty prednisone 20 mg tablet 2018-02 00:00: 00 Yes 1mg Chris Doherty montelukast 10 mg tablet 2018-02 00:00: 00 Yes 1mg Chris Doherty indomethaci n 50 mg capsule 2018-02 00:00: 00 Yes 1mg Chris Doherty gabapentin 300 mg capsule 2018-02 00:00: 00 Yes 1mg Chris Doherty Symbicort 160 mcg-4.5 mcg/actuati on HFA aerosol [...] on HFA aerosol inhaler 2018-02 00:00: 00 Yes 2mcg/ac tuation Chris Doherty ProAir HFA 90 mcg/actuati on aerosol inhaler 2018-02 00:00: 00 Yes 1mcg/ac tuation Chris Doherty Trelegy Ellipta 100 mcg-62.5 mcg-25 mcg powder for inhalation 2018-02 00:00: 00 Yes 1mcg Chris Doherty citalopram 40 mg tablet 2018-02 00:00: 00 Yes 1mg Chris Doherty Seroquel 25 mg tablet 2018-02 00:00: 00 Yes 1mg Chris Doherty prednisone 20 mg tablet 2018-02 00:00: 00 Yes mg Chris Dhoerty benzonatate 200 mg capsule 2018-02 00:00: 00 Yes 1mg Chris Doherty Bromfed DM 2 mg-30 mg-10 mg/5 mL oral syrup 2018-02 00:00: 00 Yes 5mg/5 mL Chris Doherty albuterol sulfate 2.5 mg/3 mL (0.083 %) solution for nebulizatio n 2018-02 00:00: 00 Yes 1/3 mL (0.083 %) Chris Doherty prednisone 20 mg tablet 2018-02 00:00: 00 [...] 1 tab once daily for 3 days [facility] clonazePAM 0.5 mg tablet 02-25 00:00: 00 Yes .5mg Take 1 tablet by mouth 3 (three) times daily. [facility] ipratropium -albuterol 0.5 mg-3 mg(2.5 mg base)/3 mL nebulizer solution 02-25 00:00: 00 Yes 3mL Inhale 3 mL 4 (four) times daily as needed for Wheezing. [facility] Vital Signs Vital Name Observation Time Observation Value Herbert chamberlain Systolic blood pressure 2024-01-01 20:14:00 123 mm[Hg] [facility] Diastolic blood pressure 2024-01-01 20:14:00 68 mm[Hg] [facility] Heart rate 2024-01-01 20:14:00 89 /min [facility] Body height 2024-01-01 20:14:00 162.6 cm [facility] Body weight 2024-01-01 20:14:00 101.379 kg [facility] BMI 2024-01-01 20:14:00 38.36 kg/m2 [facility] Oxygen saturation in Arterial blood by Pulse oximetry 2024-01-01 20:14:00 96 /min [facility] Oxygen saturation in Arterial blood by Pulse oximetry 2022-05-31 17:50:00 95 /min [facility] Systolic blood pressure 2022-05-31 17:45:00 115 mm[Hg] [facility] Diastolic blood pressure 2022-05-31 17:45:00 52 mm[Hg] [facility] Respiratory rate 2022-05-31 17:45:00 20 /min [facility] Heart rate 2022-05-31 17:23:00 84 /min [facility] Body temperature 2022-05-31 17:23:00 36.67 Arianna [facility] Body height 2022-05-25 18:00:00 162.6 cm [facility] Body weight 2022-05-25 18:00:00 92.08 kg [facility] BMI 2022-05-25 18:00:00 34.84 kg/m2 [facility] Systolic blood pressure 2022-05-31 15:31:00 122 mm[Hg] [facility] Diastolic blood pressure 2022-05-31 15:31:00 57 mm[Hg] [facility] Heart rate 2022-05-31 15:31:00 88 /min [facility] Res[facility] 2022-05-31 15:31:00 18 /min [facility] Oxygen saturation in Arterial blood by Pulse oximetry 2022-05-31 15:31:00 99 /min [facility] Body temperature 2022-05-31 15:27:00 36.78 Arianna [facility] Body height 2022-05-25 18:00:00 162.6 cm [facility] Body weight 2022-05-25 18:00:00 92.08 kg [facility] BMI 2022-05-25 18:00:00 34.84 kg/m2 [facility] BP Systolic 2024-02-06 11:32:00 90 mm[Hg] Step hen F Chas BP Diastolic 2024-02-06 11:32:00 63 mm[Hg] Kyler phen F Chas Weight Measured 2024-02-06 11:32:00 215.20 pounds Chris F Chas Height Measured 2024-02-06 11:32:00 64.80 inches Chris F Chas Body Temperature 2024-02-06 11:32:00 97.30 degrees Chris F Chas Heart Rate 2024-02-06 11:32:00 100.00 /min Step hen F Chas Respiratory Rate 2024-02-06 11:32:00 18.00 /min Chris F Chas BP Systolic 2024-01-30 17:18:00 Step hen F Chas BP Diastolic 2024-01-30 17:18:00 Kyler phen F Chas Weight Measured 2024-01-30 17:18:00 Chris F Chas Height Measured 2024-01-30 17:18:00 Chris F Chas Body Temperature 2024-01-30 17:18:00 Chris F Chas Heart Rate 2024-01-30 17:18:00 Julee en F Chas Respiratory Rate 2024-01-30 17:18:00 Chris F Chas BP Systolic 2024-01-10 11:14:00 95 mm[Hg] Step hen F Chas BP Diastolic 2024-01-10 11:14:00 59 mm[Hg] Kyler phen F Chas Weight Measured 2024-01-10 11:14:00 219.20 pounds Chris F Chas Height Measured 2024-01-10 11:14:00 64.80 inches Chris F Chas Body Temperature 2024-01-10 11:14:00 97.40 degrees Chris F Chas Heart Rate 2024-01-10 11:14:00 105.00 /min Step hen F Chas Respiratory Rate 2024-01-10 11:14:00 18.00 /min Chris F Chas BP Systolic 2024-01-07 09:36:00 109 mm[Hg] Step hen F Chas BP Diastolic 2024-01-07 09:36:00 79 mm[Hg] Kyler phen F Chas Weight Measured 2024-01-07 09:36:00 219.00 pounds Chris F Chas Height Measured 2024-01-07 09:36:00 64.80 inches Chris F Chas Body Temperature 2024-01-07 09:36:00 97.80 degrees Chris F Chas Heart Rate 2024-01-07 09:36:00 104.00 /min Step hen F Chas Respiratory Rate 2024-01-07 09:36:00 Chris F Chas BP Systolic 2023-05-28 10:14:00 Step hen F Chas BP Diastolic 2023-05-28 10:14:00 Kyler phen F Chas Weight Measured 2023-05-28 10:14:00 213.00 pounds Chris F Chas Height Measured 2023-05-28 10:14:00 Chris F Chas Body Temperature 2023-05-28 10:14:00 Chris F Chas Heart Rate 2023-05-28 10:14:00 Julee en F Chas Respiratory Rate 2023-05-28 10:14:00 Chris F Chas BP Systolic 2023-04-26 10:31:00 103 mm[Hg] Step hen F Chas BP Diastolic 2023-04-26 10:31:00 68 mm[Hg] Kyler phen F Chas Weight Measured 2023-04-26 10:31:00 213.20 pounds Chris F Chas Height Measured 2023-04-26 10:31:00 64.80 inches Chris F Chas Body Temperature 2023-04-26 10:31:00 98.20 degrees Chris F Chas Heart Rate 2023-04-26 10:31:00 98.00 /min Julee en F Chas Respiratory Rate 2023-04-26 10:31:00 19.00 /min Chris F Chas BP Systolic 2023-03-29 13:24:00 98 mm[Hg] Step hen F Chas BP Diastolic 2023-03-29 13:24:00 69 mm[Hg] Kyler phen F Chas Weight Measured 2023-03-29 13:24:00 218.20 pounds Chris F Chas Height Measured 2023-03-29 13:24:00 64.80 inches Chris F Chas Body Temperature 2023-03-29 13:24:00 98.10 degrees Chris F Chas Heart Rate 2023-03-29 13:24:00 83.00 /min Julee en F Chas Respiratory Rate 2023-03-29 13:24:00 18.00 /min Chris F Chas BP Systolic 2023-03-07 11:34:00 Step hen F Chas BP Diastolic 2023-03-07 11:34:00 Kyler phen F Chas Weight Measured 2023-03-07 11:34:00 Chris F Chas Height Measured 2023-03-07 11:34:00 Chris F Chas Body Temperature 2023-03-07 11:34:00 Chris F Chas Heart Rate 2023-03-07 11:34:00 Julee en F Chas Respiratory Rate 2023-03-07 11:34:00 Chris F Chas BP Systolic 2022-11-15 08:40:00 104 mm[Hg] Step hen F Chas BP Diastolic 2022-11-15 08:40:00 57 mm[Hg] Kyler phen F Chas Weight Measured 2022-11-15 08:40:00 204.80 pounds Chris F Chas Height Measured 2022-11-15 08:40:00 64.80 inches Chris F Chas Body Temperature 2022-11-15 08:40:00 98.30 degrees Chris F Chas Heart Rate 2022-11-15 08:40:00 93.00 /min Julee en F Chas Respiratory Rate 2022-11-15 08:40:00 Chris F Chas BP Systolic 2022-09-07 13:56:00 106 mm[Hg] Step hen F Chas BP Diastolic 2022-09-07 13:56:00 71 mm[Hg] Kyler phen F Chas Weight Measured 2022-09-07 13:56:00 205.80 pounds Chris F Chas Height Measured 2022-09-07 13:56:00 64.80 inches Chris F Chas Body Temperature 2022-09-07 13:56:00 97.90 degrees Chris F Chas Heart Rate 2022-09-07 13:56:00 95.00 /min Julee en F Chas Respiratory Rate 2022-09-07 13:56:00 Chris F Chas BP Systolic 2022-05-17 13:48:00 104 mm[Hg] Step hen F Chas BP Diastolic 2022-05-17 13:48:00 61 mm[Hg] Kyler phen F Chas Weight Measured 2022-05-17 13:48:00 198.80 pounds Chris F Chas Height Measured 2022-05-17 13:48:00 64.80 inches Chris F Chas Body Temperature 2022-05-17 13:48:00 98.10 degrees Chris F Chas Heart Rate 2022-05-17 13:48:00 93.00 /min Julee en F Chas Respiratory Rate 2022-05-17 13:48:00 Chris F Chas BP Systolic 2022-04-18 14:17:00 90 mm[Hg] Step hen F Chas BP Diastolic 2022-04-18 14:17:00 63 mm[Hg] Kyler phen F Chas Weight Measured 2022-04-18 14:17:00 196.80 pounds Chris F Chas Height Measured 2022-04-18 14:17:00 64.80 inches Chris F Chas Body Temperature 2022-04-18 14:17:00 97.90 degrees Chris F Chas Heart Rate 2022-04-18 14:17:00 99.00 /min Julee en F Chas Respiratory Rate 2022-04-18 14:17:00 18.00 /min Chris F Chas BP Systolic 2022-04-17 10:10:00 111 mm[Hg] Step hen F Chas BP Diastolic 2022-04-17 10:10:00 76 mm[Hg] Kyler phen F Chas Weight Measured 2022-04-17 10:10:00 199.60 pounds Chris F Chas Height Measured 2022-04-17 10:10:00 64.80 inches Chris F Chas Body Temperature 2022-04-17 10:10:00 98.10 degrees Chris F Chas Heart Rate 2022-04-17 10:10:00 90.00 /min Julee Doherty Respiratory Rate 2022-04-17 10:10:00 18.00 /min Chris Doherty BP Systolic 2022-01-17 14:48:00 Tae Doherty BP Diastolic 2022-01-17 14:48:00 Kyler Doherty Weight Measured 2022-01-17 14:48:00 190.00 pounds Chris Doherty Height Measured 2022-01-17 14:48:00 64.80 inches Chris Doherty Body Temperature 2022-01-17 14:48:00 Chris Doherty Heart Rate 2022-01-17 14:48:00 Julee Doherty Respiratory Rate 2022-01-17 14:48:00 Chris Doherty BP Systolic 2021-05-05 15:41:00 118 mm[Hg] BP [...] Date / Time Performed Performing Clinician Source TRANSTHORACIC ECHO (TTE) COMPLETE 2024-01-09 19:48:50 Jina Felton [facility] HB ECG ROUTINE & RHYTHM STRIP 2024-01-01 20:20:13 Jina Felton [facility] PHACOEMULSIFICATION OF CATARACT WITH INTRAOCULAR LENS IMPLANT 2022-05-31 16:49:00 Meche Lam [facility] PATIENT QUESTIONNAIRE 2022-05-31 05:01:00 Doctor Unassigned, [place] [facility] ASSIGNMENT OF BENEFITS 2022-05-22 21:36:19 Doctor Unassigned, [place] [facility] Plan of Care Planned Activity Planned Date Details Comments Source Goal Plan of Care Note [code = 86455-6] Goal Plan of Care Note [code = 98340-9] Goal Plan of Care Note [code = 19371-2] Goal Plan of Care Note [code = 70317-8] Goal Plan of Care Note [code = 36464-0] Goal Plan of Care Note [code = 94380-4] Goal Plan of Care Note [code = 90409-1] Goal Plan of Care Note [code = 08567-8] Goal Plan of Care Note [code = 40988-7] Goal Plan of Care Note [code = 50970-1] Goal Plan of Care Note [code = 05044-8] Goal Plan of Care Note [code = 37544-2] Goal Plan of Care Note [code = 00991-5] Goal Plan of Care Note [code = 42560-5] Goal Plan of Care Note [code = 58983-7] Goal Plan of Care Note [code = 42536-1] Goal Plan of Care Note [code = 12754-1] Goal Plan of Care Note [code = 03300-7] Goal Plan of Care Note [code = 57593-3] Goal Plan of Care Note [code = 76446-4] Goal Plan of Care Note [code = 83670-3] Goal Plan of Care Note [code = 26854-3] Goal Plan of Care Note [code = 92733-2] Goal Plan of Care Note [code = 28602-4] Goal Plan of Care Note [code = 24028-1] Goal Plan of Care Note [code = 90878-9] Goal Plan of Care Note [code = 51529-3] Goal Plan of Care Note [code = 31145-8] Goal Plan of Care Note [code = 00232-7] Goal Plan of Care Note [code = 48539-5] Goal Plan of Care Note [code = 67664-2] Goal Plan of Care Note [code = 83571-8] Goal Plan of Care Note [code = 01793-8] Goal Plan of Care Note [code = 53815-6] Goal Plan of Care Note [code = 41494-9] Goal Plan of Care Note [code = 43325-7] Goal Plan of Care Note [code = 31100-2] Goal Plan of Care Note [code = 20875-5] Goal Plan of Care Note [code = 51788-5] Goal Plan of Care Note [code = 38941-6] Goal Plan of Care Note [code = 83779-2] Goal Plan of Care Note [code = 70485-6] Goal Plan of Care Note [code = 19881-0] Goal Plan of Care Note [code = 82430-6] Goal Plan of Care Note [code = 48945-5] Goal Plan of Care Note [code = 90392-4] Goal Plan of Care Note [code = 19532-1] Goal Plan of Care Note [code = 15795-1] Goal Plan of Care Note [code = 37832-1] Goal Plan of Care Note [code = 68899-5] Encounters Start Date/Time End Date/Time Encounter Type Admission Type Attending Clinicians Care Facility Care Department Encounter ID Source 2020-12-18 11:16:09 Outpatient [facility] [id number] [facility] 2024-03-12 00:00:00 2024-03-12 00:00:00 Outpatient Visit [facility] [id number] Chris Brandt Chas 2024-03-10 10:31:07 2024-03-10 10:31:07 Outpatient [facility] [id number] Chris Brandt Chas 2024-02-24 09:42:18 2024-02-24 09:42:18 [facility] [facility] [id number] Chris Brandt Chas 2024-01-10 00:00:00 2024-02-15 18:19:41 Patient Secure Lynne Fonsecaibis [facility] 1.2.840.114 350.1.13.10 4.2.7.2.686 [id number] [facility] 2024-02-14 10:29:00 2024-02-14 10:29:00 Outpatient [facility] [id number] Chris Rikki Chas 2024-02-06 11:22:04 2024-02-06 11:22:04 [facility]patient [facility] [id number] Chris Rikki Chas 2024-02-06 00:00:00 2024-02-06 00:00:00 Outpatient Visit SFA [id number] Chris Doherty 2024-01-30 17:16:32 2024-01-30 17:16:32 Outpatient SFA SFA [id number] Chris Doherty 2024-01-30 00:00:00 2024-01-30 00:00:00 Outpatient Visit SFA [id number] Chris Doherty 2024-01-28 10:06:30 2024-01-28 10:06:30 Outpatient SFA SFA [id number] Chris Doherty 2024-01-27 17:00:07 2024-01-27 17:00:07 Outpatient SFA SFA [id number] Chris Doherty 2024-01-19 13:13:17 2024-01-19 13:13:17 Outpatient SFA [facility] [id number] Chris Doherty 2024-01-10 11:10:54 2024-01-10 11:10:54 Outpatient SFA SFA [id number] Chris Doherty 2024-01-10 00:00:00 2024-01-10 00:00:00 Outpatient Visit SFA [id number] Chris Doherty 2024-01-09 13:00:00 2024-01-09 23:59:00 Outpatient R JINA FELTON [facility] [id number] [facility] 2024-01-09 13:00:00 2024-01-09 23:59:00 Hospital Encounter Jina Felton [facility] 1.2.840.114 350.1.13.10 4.2.7.2.686 [id number] [facility] 2024-01-07 09:20:01 2024-01-07 09:20:01 Outpatient SFA SFA [id number] Chris Doherty 2024-01-07 00:00:00 2024-01-07 00:00:00 Outpatient Visit SFA [id number] Chris Doherty 2024-01-01 08:00:00 2024-01-01 23:59:00 [facility] [id number] [facility] 2024-01-01 08:00:00 2024-01-01 23:59:00 [facility] 1.2.840.114 350.1.13.10 4.2.7.2.686 [id number] [facility] 2024-01-01 13:40:00 2024-01-01 14:41:31 Office Visit Lonny [facility] 1.2.840.114 350.1.13.10 4.2.7.2.686 [id number] [facility] 2023-10-14 11:30:58 2023-10-14 11:30:58 Outpatient SFA [facility] [id number] Chris Doherty 2023-10-14 00:00:00 2023-10-14 00:00:00 Outpatient Visit SFA [id number] Chris Doherty 2023-09-11 13:51:34 2023-09-11 13:51:34 Outpatient SFA SFA [id number] Chris Doherty 2023-09-11 00:00:00 2023-09-11 00:00:00 Outpatient Visit SFA [id number] Chris Doherty 2023-09-02 13:30:00 2023-09-02 13:30:00 Outpatient R COLLIN ORTEGA SHIWAN [facility] [id number] [facility] 2023-07-05 10:30:00 2023-07-05 10:30:00 Outpatient R COLLIN ORTEGA SHIWAN [facility] [id number] [facility] 2023-06-17 09:40:00 2023-06-17 09:40:00 Outpatient JINA LEE [facility] [id number] [facility] 2023-05-13 13:25:28 2023-05-13 13:25:28 Outpatient SFA SFA [id number] Chris Doherty 2023-04-26 10:16:22 2023-04-26 10:16:22 Outpatient SFA SFA [id number] Chris Doherty 2023-03-29 13:20:36 2023-03-29 13:20:36 Outpatient SFA SFA [id number] Chris Doherty 2023-02-05 15:46:34 2023-02-05 15:46:34 Outpatient SFA SFA [id number] Chris Doherty 2022-11-15 08:28:38 2022-11-15 08:28:38 Outpatient SFA SFA [id number] Chris Doherty 2022-10-11 16:43:25 2022-10-11 16:43:25 Outpatient SFA SFA [id number] Chris Doherty 2022-09-07 13:43:12 2022-09-07 13:43:12 Outpatient SFA SFA [id number] Chris Doherty 2022-09-04 14:30:07 2022-09-04 14:30:07 Outpatient SFA SFA [id number] Chris Doherty 2022-05-31 10:13:00 2022-05-31 13:09:00 Outpatient MECHE MEIER [facility] [id number] [facility] 2022-05-31 10:13:00 2022-05-31 13:09:00 Hospital Encounter Meche Lam [facility] 1.2.840.114 350.1.13.10 4.2.7.2.686 [id number] [facility] 2022-05-31 11:37:00 2022-05-31 12:12:00 Surgery Meche Lam [facility] 1.2.840.114 350.1.13.10 4.2.7.2.686 [id number] [facility] 2022-05-31 00:00:00 2022-05-31 00:00:00 Orders Only Doctor Unassigned, [place] [facility] 1.2.840.114 350.1.13.10 4.2.7.2.686 [id number] [facility] 2022-05-29 10:43:07 2022-05-29 10:43:07 Outpatient SFA [facility] [id number] Chris Doherty 2022-05-22 00:00:00 2022-05-22 00:00:00 Orders Only Doctor Unassigned, [place] [facility] 1.2.840.114 350.1.13.10 4.2.7.2.686 [id number] [facility] 2022-05-17 13:40:22 2022-05-17 13:40:22 Outpatient SFA [facility] [id number] Chris Brandt Chas 2022-04-18 13:53:40 2022-04-18 13:53:40 Outpatient SFA [facility] [id number] Chris Brandt Chas 2022-04-17 09:59:04 2022-04-17 09:59:04 Outpatient SFA [facility] [id number] Chris Brandt Chas 2022-03-10 12:17:29 2022-03-10 12:17:29 Outpatient SFA [facility] [id number] Chris Brandt Chas 2022-02-01 00:00:00 2022-02-01 00:00:00 Outpatient Visit [id number] 2021-10-04 00:00:00 2021-10-04 00:00:00 Outpatient Visit [id number] 2020-05-26 10:30:00 2020-05-26 12:59:00 Hospital Encounter Meche Lam [facility] 1.2.840.114 350.1.13.10 4.2.7.2.686 [id number] 2020-05-26 12:12:00 2020-05-26 12:48:00 Surgery [facility] 1.2.840.114 350.1.13.10 4.2.7.2.686 [id number] 2020-05-26 12:09:00 2020-05-26 12:37:00 Anesthesia Event Bradley Elliott Michael Wayne [facility] 1.2.840.114 350.1.13.10 4.2.7.2.686 [id number] 2020-05-25 10:21:30 2020-05-25 10:36:30 Laboratory Only Only, Adc Test [facility] 1.2.840.114 350.1.13.10 4.2.7.2.686 [id number] 2020-05-25 10:15:00 2020-05-25 10:15:00 Outpatient R GENAROMECHE [facility] [id number] [facility] 2020-05-19 12:11:02 2020-05-19 12:26:02 Track Welder Visit [place], Adc Lab [facility] 1.2.840.114 350.1.13.10 4.2.7.2.686 [id number] 2020-05-19 12:15:00 2020-05-19 12:15:00 Outpatient MECHE MEIER [facility] [id number] [facility] 2020-05-19 00:00:00 2020-05-19 00:00:00 Orders Only Doctor Unassigned, [place] [facility] 1.2.840.114 350.1.13.10 4.2.7.2.686 [id number] 2019-12-08 10:14:00 2019-12-08 10:14:00 Outpatient Jn Soliz [id number] [facility] Results Test Description Test Time Test Comments Results Result Co mments Source [facility] [id number] 03:35:23* Test Item Value Reference Range Interpretation Comme nts CHOLESTEROL (test code = 2210) 277 MG/DL <200 H TRIGLYCERIDES (test code = 2232) 132 MG/DL <150 HDL CHOLESTEROL (test code = 2220) 79 MG/DL >39 CALC LDL CHOL (test code = 2237) 171 MG/DL <100 H NOTE: CALCULATED LDL IS BASED ON ZULEYMA-CISNEROS METHOD WHICHINCLUDES ADJUSTABLE TRIGLYCERIDE:VLDL CHOLESTEROL RATIO.THIS FACTOR VARIES BY MEASURED TRIGLYCERIDE AND NON-HDLCHOLESTEROL CONCENTRATIONS WITH INCREASED CALCULATED LDL SEENIN HIGHER TRIGLYCERIDE OR LOWER NON-HDL SPECIMENS. FOR MOREINFORMATION, SEE CLIENT ANNOUNCEMENT AT [email or web address] RISK RATIO LDL/HDL (test code = 2238) 2.16 RATIO <3.22 COMPREHENSIVE METABOLIC [id number] 03:35:23* Test Item Value Reference Range Interpretation Comme nts GLUCOSE (test code = 2217) 106 MG/DL 70-99 H BUN (test code = 2208) 16 MG/DL 6-20 CREATININE (test code = 2214) 1.00 MG/DL 0.60-1.30 eGFR (2020 CKD-EPI) (test code = 49361) 67 ML/MIN/1.73 >60 CALC BUN/CREAT (test code = 2235) 16 RATIO 6-28 SODIUM (test code = 223) 141 MEQ/L 133-146 POTASSIUM (test code = 2228) 4.4 MEQ/L 3.5-5.4 CHLORIDE (test code = 5) 101 MEQ/L 95-107 CARBON DIOXIDE (test code = 2205) 27 MEQ/L 19-31 CALCIUM (test code = 9) 10.4 MG/DL 8.5-10.5 PROTEIN, TOTAL (test code = 2229) 6.4 G/DL 6.1-8.3 ALBUMIN (test code = 2200) 4.0 G/DL 3.5-5.2 CALC GLOBULIN (test code = 0) 2.4 G/DL 1.9-3.7 CALC A/G RATIO (test code = 2233) 1.7 RATIO 1.0-2.6 BILIRUBIN, TOTAL (test code = 2206) 0.4 MG/DL <=1.2 ALKALINE PHOSPHATASE (test code = 2203) 83 U/L 40-133 AST (test code = 2217) 23 U/L 9-40 ALT (test code = 2218) 10 U/L 5-40 UNLESS OTHERWISE INDICATED, ALL TESTING PERFORMED AT [facility] [address] [place] [address] FREEZER MACHINE OPERATOR: CHRISTINA STEVENS M.D. CLIA NUMBER [id number] [facility] [place]. [id number] HEMOGLOBIN [id number] 03:16:04* Test Item Value Reference Range Interpretation Comme nts HEMOGLOBIN A1c (test code = 44040) 5.5 % 4.2-5.6 CBC W/AUTO DIFF WITH [id number] 02:15:09* Test Item Value Reference Range Interpretation Comme nts WBC (test code = 1001) 10.3 K/UL 3.5-11.0 RBC (test code = 1002) 4.64 M/UL 3.80-5.40 HEMOGLOBIN (test code = 1003) 14.4 G/DL 11.5-15.5 HEMATOCRIT (test code = 1004) 44.0 % 34.0-45.0 MCV (test code = 1005) 94.8 fL 80.0-99.0 MCH (test code = 1006) 31.0 PG 25.0-33.0 MCHC (test code = 1007) 32.7 G/DL 31.0-36.0 RDW (test code = 1038) 11.4 % 11.5-15.0 L NEUTROPHILS (test code = 1008) 56.2 % LYMPHOCYTES (test code = 1010) 36.0 % MONOCYTES (test code = 1011) 5.4 % EOSINOPHILS (test code = 1012) 1.7 % BASOPHILS (test code = 1013) 0.4 % IMMATURE GRANULOCYTES (test code = 1036) 0.3 % NUCLEATED RBCS (test code = 1065) 0.0 /100 WBC'S See_Comment [Automated messa ge] The system which generated this result transmitted reference range: 0.0. The reference range was not used to interpret this result as normal/abnormal. PLATELET COUNT (test code = 1015) 288 K/UL 130-400 ABSOLUTE NEUTROPHILS (test code = 1066) 5.79 K/UL 1.50-7.50 ABSOLUTE LYMPHOCYTES (test code = 1067) 3.70 K/UL 1.00-4.00 ABSOLUTE MONOCYTES (test code = 1068) 0.56 K/UL 0.20-1.00 ABSOLUTE EOSINOPHILS (test code = 1040) 0.17 K/UL 0.00-0.50 ABSOLUTE BASOPHILS (test code = 1069) 0.04 K/UL 0.00-0.20 ABS IMMATURE GRANULOCYTES (test code = 1020) 0.03 K/UL 0.00-0.10 ABS NUCLEATED RBCS (test code = 65362) 0.00 K/UL 0.00-0.11 CBC W/AUTO [id number] 00:00:00* Test Item Value Reference Range Interpretation Comme nts WBC (test code = 1001) 10.3 K/UL RBC (test code = 1002) 4.64 M/UL HEMOGLOBIN (test code = 1003) 14.4 G/DL HEMATOCRIT (test code = 1004) 44.0 % MCV (test code = 1005) 94.8 fL MCH (test code = 1006) 31.0 PG MCHC (test code = 1007) 32.7 G/DL RDW (test code = 1038) 11.4 % NEUTROPHILS (test code = 1008) 56.2 % LYMPHOCYTES (test code = 1010) 36.0 % MONOCYTES (test code = 1011) 5.4 % EOSINOPHILS (test code = 1012) 1.7 % BASOPHILS (test code = 1013) 0.4 % IMMATURE GRANULOCYTES (test code = 1036) 0.3 % NUCLEATED RBCS (test code = 1065) 0.0 /100WBC'S PLATELET COUNT (test code = 1015) 288 K/UL ABSOLUTE NEUTROPHILS (test c ode = 1066) 5.79 K/UL ABSOLUTE LYMPHOCYTES (test c ode = 1067) 3.70 K/UL ABSOLUTE MONOCYTES (test cod e = 1068) 0.56 K/UL ABSOLUTE EOSINOPHILS (test c ode = 1040) 0.17 K/UL ABSOLUTE BASOPHILS (test cod e = 1069) 0.04 K/UL ABS IMMATURE GRANULOCYTES (t est code = 1020) 0.03 K/UL ABS NUCLEATED RBCS (test cod e = 41785) 0.00 K/UL Chris DohertyHEMOGLOBIN [id number] 00:00:00* Test Item Value Reference Range Interpretation Comme nts HEMOGLOBIN A1c (test code = 95248) 5.5 % Chris DohertyLIPID [id number] 00:00:00* Test Item Value Reference Range Interpretation Comme nts CHOLESTEROL (test code = 2210) 277 MG/DL TRIGLYCERIDES (test code = 2232) 132 MG/DL HDL CHOLESTEROL (test code = 2220) 79 MG/DL CALC LDL CHOL (test code = 2237) 171 MG/DL RISK RATIO LDL/HDL (test cod e = 2238) 2.16 RATIO Chris DohertyCOMPREHENSIVE METABOLIC [id number] 00:00:00* Test Item Value Reference Range Interpretation Comme nts GLUCOSE (test code = 2217) 106 MG/DL BUN (test code = 2208) 16 MG/DL CREATININE (test code = 2214) 1.00 MG/DL eGFR (2020 CKD-EPI) (test co de = 39192) 67 ML/MIN/1.73 CALC BUN/CREAT (test code = 2235) 16 RATIO SODIUM (test code = 2231) 141 MEQ/L POTASSIUM (test code = 2228) 4.4 MEQ/L CHLORIDE (test code = 2215) 101 MEQ/L CARBON DIOXIDE (test code = 2206) 27 MEQ/L CALCIUM (test code = 2209) 10.4 MG/DL PROTEIN, TOTAL (test code = 2229) 6.4 G/DL ALBUMIN (test code = 2201) 4.0 G/DL CALC GLOBULIN (test code = 2240) 2.4 G/DL CALC A/G RATIO (test code = 2234) 1.7 RATIO BILIRUBIN, TOTAL (test code = 2207) 0.4 MG/DL ALKALINE PHOSPHATASE (test code = 2204) 83 U/L AST (test code = 2218) 23 U/L ALT (test code = 2219) 10 U/L Chris DohertyCBC W/AUTO [id number] 00:00:00* Test Item Value Reference Range Interpretation Comme nts WBC (test code = 1001) 10.3 K/UL RBC (test code = 1002) 4.64 M/UL HEMOGLOBIN (test code = 1003) 14.4 G/DL HEMATOCRIT (test code = 1004) 44.0 % MCV (test code = 1005) 94.8 fL MCH (test code = 1006) 31.0 PG MCHC (test code = 1007) 32.7 G/DL RDW (test code = 1038) 11.4 % NEUTROPHILS (test code = 1008) 56.2 % LYMPHOCYTES (test code = 1010) 36.0 % MONOCYTES (test code = 1011) 5.4 % EOSINOPHILS (test code = 1012) 1.7 % BASOPHILS (test code = 1013) 0.4 % IMMATURE GRANULOCYTES (test code = 1036) 0.3 % NUCLEATED RBCS (test code = 1065) 0.0 /100WBC'S PLATELET COUNT (test code = 1015) 288 K/UL ABSOLUTE NEUTROPHILS (test c ode = 1066) 5.79 K/UL ABSOLUTE LYMPHOCYTES (test c ode = 1067) 3.70 K/UL ABSOLUTE MONOCYTES (test cod e = 1068) 0.56 K/UL ABSOLUTE EOSINOPHILS (test c ode = 1040) 0.17 K/UL ABSOLUTE BASOPHILS (test cod e = 1069) 0.04 K/UL ABS IMMATURE GRANULOCYTES (t est code = 1020) 0.03 K/UL ABS NUCLEATED RBCS (test cod e = 69452) 0.00 K/UL Chris DohertyHEMOGLOBIN [id number] 00:00:00* Test Item Value Reference Range Interpretation Comme nts HEMOGLOBIN A1c (test code = 48425) 5.5 % Chris DohertyLIPID [id number] 00:00:00* Test Item Value Reference Range Interpretation Comme nts CHOLESTEROL (test code = 2210) 277 MG/DL TRIGLYCERIDES (test code = 2232) 132 MG/DL HDL CHOLESTEROL (test code = 2220) 79 MG/DL CALC LDL CHOL (test code = 2237) 171 MG/DL RISK RATIO LDL/HDL (test cod e = 2238) 2.16 RATIO Chris DohertyCOMPREHENSIVE METABOLIC [id number] 00:00:00* Test Item Value Reference Range Interpretation Comme nts GLUCOSE (test code = 2217) 106 MG/DL BUN (test code = 2208) 16 MG/DL CREATININE (test code = 2214) 1.00 MG/DL eGFR (2020 CKD-EPI) (test co de = 56749) 67 ML/MIN/1.73 CALC BUN/CREAT (test code = 2235) 16 RATIO SODIUM (test code = 2231) 141 MEQ/L POTASSIUM (test code = 2228) 4.4 MEQ/L CHLORIDE (test code = 2215) 101 MEQ/L CARBON DIOXIDE (test code = 2206) 27 MEQ/L CALCIUM (test code = 2209) 10.4 MG/DL PROTEIN, TOTAL (test code = 2229) 6.4 G/DL ALBUMIN (test code = 2201) 4.0 G/DL CALC GLOBULIN (test code = 2240) 2.4 G/DL CALC A/G RATIO (test code = 2234) 1.7 RATIO BILIRUBIN, TOTAL (test code = 2207) 0.4 MG/DL ALKALINE PHOSPHATASE (test code = 2204) 83 U/L AST (test code = 2218) 23 U/L ALT (test code = 2219) 10 U/L Chris DohertyCBC W/AUTO [id number] 00:00:00* Test Item Value Reference Range Interpretation Comme nts WBC (test code = 1001) 10.3 K/UL RBC (test code = 1002) 4.64 M/UL HEMOGLOBIN (test code = 1003) 14.4 G/DL HEMATOCRIT (test code = 1004) 44.0 % MCV (test code = 1005) 94.8 fL MCH (test code = 1006) 31.0 PG MCHC (test code = 1007) 32.7 G/DL RDW (test code = 1038) 11.4 % NEUTROPHILS (test code = 1008) 56.2 % LYMPHOCYTES (test code = 1010) 36.0 % MONOCYTES (test code = 1011) 5.4 % EOSINOPHILS (test code = 1012) 1.7 % BASOPHILS (test code = 1013) 0.4 % IMMATURE GRANULOCYTES (test code = 1036) 0.3 % NUCLEATED RBCS (test code = 1065) 0.0 /100WBC'S PLATELET COUNT (test code = 1015) 288 K/UL ABSOLUTE NEUTROPHILS (test c ode = 1066) 5.79 K/UL ABSOLUTE LYMPHOCYTES (test c ode = 1067) 3.70 K/UL ABSOLUTE MONOCYTES (test cod e = 1068) 0.56 K/UL ABSOLUTE EOSINOPHILS (test c ode = 1040) 0.17 K/UL ABSOLUTE BASOPHILS (test cod e = 1069) 0.04 K/UL ABS IMMATURE GRANULOCYTES (t est code = 1020) 0.03 K/UL ABS NUCLEATED RBCS (test cod e = 82038) 0.00 K/UL Chris DohertyHEMOGLOBIN [id number] 00:00:00* Test Item Value Reference Range Interpretation Comme nts HEMOGLOBIN A1c (test code = 46736) 5.5 % Chris DohertyLIPID [id number] 00:00:00* Test Item Value Reference Range Interpretation Comme nts CHOLESTEROL (test code = 2210) 277 MG/DL TRIGLYCERIDES (test code = 2232) 132 MG/DL HDL CHOLESTEROL (test code = 2220) 79 MG/DL CALC LDL CHOL (test code = 2237) 171 MG/DL RISK RATIO LDL/HDL (test cod e = 2238) 2.16 RATIO Chris DohertyCOMPREHENSIVE METABOLIC [id number] 00:00:00* Test Item Value Reference Range Interpretation Comme nts GLUCOSE (test code = 2217) 106 MG/DL BUN (test code = 2208) 16 MG/DL CREATININE (test code = 2214) 1.00 MG/DL eGFR (2020 CKD-EPI) (test co de = 01816) 67 ML/MIN/1.73 CALC BUN/CREAT (test code = 2235) 16 RATIO SODIUM (test code = 2231) 141 MEQ/L POTASSIUM (test code = 2228) 4.4 MEQ/L CHLORIDE (test code = 2215) 101 MEQ/L CARBON DIOXIDE (test code = 2206) 27 MEQ/L CALCIUM (test code = 2209) 10.4 MG/DL PROTEIN, TOTAL (test code = 2229) 6.4 G/DL ALBUMIN (test code = 2201) 4.0 G/DL CALC GLOBULIN (test code = 2240) 2.4 G/DL CALC A/G RATIO (test code = 2234) 1.7 RATIO BILIRUBIN, TOTAL (test code = 2207) 0.4 MG/DL ALKALINE PHOSPHATASE (test code = 2204) 83 U/L AST (test code = 2218) 23 U/L ALT (test code = 2219) 10 U/L Chris DohertyCBC W/AUTO [id number] 00:00:00* Test Item Value Reference Range Interpretation Comme nts WBC (test code = 1001) 10.3 K/UL RBC (test code = 1002) 4.64 M/UL HEMOGLOBIN (test code = 1003) 14.4 G/DL HEMATOCRIT (test code = 1004) 44.0 % MCV (test code = 1005) 94.8 fL MCH (test code = 1006) 31.0 PG MCHC (test code = 1007) 32.7 G/DL RDW (test code = 1038) 11.4 % NEUTROPHILS (test code = 1008) 56.2 % LYMPHOCYTES (test code = 1010) 36.0 % MONOCYTES (test code = 1011) 5.4 % EOSINOPHILS (test code = 1012) 1.7 % BASOPHILS (test code = 1013) 0.4 % IMMATURE GRANULOCYTES (test code = 1036) 0.3 % NUCLEATED RBCS (test code = 1065) 0.0 /100WBC'S PLATELET COUNT (test code = 1015) 288 K/UL ABSOLUTE NEUTROPHILS (test c ode = 1066) 5.79 K/UL ABSOLUTE LYMPHOCYTES (test c ode = 1067) 3.70 K/UL ABSOLUTE MONOCYTES (test cod e = 1068) 0.56 K/UL ABSOLUTE EOSINOPHILS (test c ode = 1040) 0.17 K/UL ABSOLUTE BASOPHILS (test cod e = 1069) 0.04 K/UL ABS IMMATURE GRANULOCYTES (t est code = 1020) 0.03 K/UL ABS NUCLEATED RBCS (test cod e = 87148) 0.00 K/UL Chris DohertyHEMOGLOBIN [id number] 00:00:00* Test Item Value Reference Range Interpretation Comme nts HEMOGLOBIN A1c (test code = 41863) 5.5 % Chris DohertyLIPID [id number] 00:00:00* Test Item Value Reference Range Interpretation Comme nts CHOLESTEROL (test code = 2210) 277 MG/DL TRIGLYCERIDES (test code = 2232) 132 MG/DL HDL CHOLESTEROL (test code = 2220) 79 MG/DL CALC LDL CHOL (test code = 2237) 171 MG/DL RISK RATIO LDL/HDL (test cod e = 2238) 2.16 RATIO Chris DohertyCOMPREHENSIVE METABOLIC [id number] 00:00:00* Test Item Value Reference Range Interpretation Comme nts GLUCOSE (test code = 2217) 106 MG/DL BUN (test code = 2208) 16 MG/DL CREATININE (test code = 2214) 1.00 MG/DL eGFR (2020 CKD-EPI) (test co de = 78903) 67 ML/MIN/1.73 CALC BUN/CREAT (test code = 2235) 16 RATIO SODIUM (test code = 2231) 141 MEQ/L POTASSIUM (test code = 2228) 4.4 MEQ/L CHLORIDE (test code = 2215) 101 MEQ/L CARBON DIOXIDE (test code = 2206) 27 MEQ/L CALCIUM (test code = 2209) 10.4 MG/DL PROTEIN, TOTAL (test code = 2229) 6.4 G/DL ALBUMIN (test code = 2201) 4.0 G/DL CALC GLOBULIN (test code = 2240) 2.4 G/DL CALC A/G RATIO (test code = 2234) 1.7 RATIO BILIRUBIN, TOTAL (test code = 2207) 0.4 MG/DL ALKALINE PHOSPHATASE (test code = 2204) 83 U/L AST (test code = 2218) 23 U/L ALT (test code = 2219) 10 U/L Chris DohertyCBC W/AUTO [id number] 00:00:00* Test Item Value Reference Range Interpretation Comme nts WBC (test code = 1001) 10.3 K/UL RBC (test code = 1002) 4.64 M/UL HEMOGLOBIN (test code = 1003) 14.4 G/DL HEMATOCRIT (test code = 1004) 44.0 % MCV (test code = 1005) 94.8 fL MCH (test code = 1006) 31.0 PG MCHC (test code = 1007) 32.7 G/DL RDW (test code = 1038) 11.4 % NEUTROPHILS (test code = 1008) 56.2 % LYMPHOCYTES (test code = 1010) 36.0 % MONOCYTES (test code = 1011) 5.4 % EOSINOPHILS (test code = 1012) 1.7 % BASOPHILS (test code = 1013) 0.4 % IMMATURE GRANULOCYTES (test code = 1036) 0.3 % NUCLEATED RBCS (test code = 1065) 0.0 /100WBC'S PLATELET COUNT (test code = 1015) 288 K/UL ABSOLUTE NEUTROPHILS (test c ode = 1066) 5.79 K/UL ABSOLUTE LYMPHOCYTES (test c ode = 1067) 3.70 K/UL ABSOLUTE MONOCYTES (test cod e = 1068) 0.56 K/UL ABSOLUTE EOSINOPHILS (test c ode = 1040) 0.17 K/UL ABSOLUTE BASOPHILS (test cod e = 1069) 0.04 K/UL ABS IMMATURE GRANULOCYTES (t est code = 1020) 0.03 K/UL ABS NUCLEATED RBCS (test cod e = 86350) 0.00 K/UL Chris DohertyHEMOGLOBIN [id number] 00:00:00* Test Item Value Reference Range Interpretation Comme nts HEMOGLOBIN A1c (test code = 28823) 5.5 % Chris DohertyLIPID [id number] 00:00:00* Test Item Value Reference Range Interpretation Comme nts CHOLESTEROL (test code = 2210) 277 MG/DL TRIGLYCERIDES (test code = 2232) 132 MG/DL HDL CHOLESTEROL (test code = 2220) 79 MG/DL CALC LDL CHOL (test code = 2237) 171 MG/DL RISK RATIO LDL/HDL (test cod e = 2238) 2.16 RATIO Chris DohertyCOMPREHENSIVE METABOLIC [id number] 00:00:00* Test Item Value Reference Range Interpretation Comme nts GLUCOSE (test code = 2217) 106 MG/DL BUN (test code = 2208) 16 MG/DL CREATININE (test code = 2214) 1.00 MG/DL eGFR (2020 CKD-EPI) (test co de = 78762) 67 ML/MIN/1.73 CALC BUN/CREAT (test code = 2235) 16 RATIO SODIUM (test code = 2231) 141 MEQ/L POTASSIUM (test code = 2228) 4.4 MEQ/L CHLORIDE (test code = 2215) 101 MEQ/L CARBON DIOXIDE (test code = 2206) 27 MEQ/L CALCIUM (test code = 2209) 10.4 MG/DL PROTEIN, TOTAL (test code = 2229) 6.4 G/DL ALBUMIN (test code = 2201) 4.0 G/DL CALC GLOBULIN (test code = 2240) 2.4 G/DL CALC A/G RATIO (test code = 2234) 1.7 RATIO BILIRUBIN, TOTAL (test code = 2207) 0.4 MG/DL ALKALINE PHOSPHATASE (test code = 2204) 83 U/L AST (test code = 2218) 23 U/L ALT (test code = 2219) 10 U/L BATSHEVA Delaney2023-09-30 08:54:12SPECIMEN NUMBER: [id number] CULTURE, URINE SPECIMEN NUMBER: [id number] SPECIMEN COMMENT: URINE SOURCE: URINE REPORT STATUS: FINAL FINAL REPORT: 11/17/2022 50-100,000 CFU/ML UROGENITAL RICKEY PRESENT NO COMMON PATHOGENS UNLESS OTHERWISE INDICATED, ALL TESTING PERFORMED AT [facility] [address] [place] [address] [employer] MACHINE OPERATOR: CHRISTINA STEVENS M.D. CLIA NUMBER [id number] [facility] [place]. [id number], [id number] 00:00:00* Test Item Value Reference Range Interpretation Comme nts CULTURE, URINE (test code = 29784) SPECIMEN NUMBER: [id number] Chris Cao [id number] 00:00:00* Test Item Value Reference Range Interpretation Comme nts CULTURE, URINE (test code = 90983) SPECIMEN NUMBER: [id number] Chris Cao [id number] 00:00:00* Test Item Value Reference Range Interpretation Comme nts CULTURE, URINE (test code = 04830) SPECIMEN NUMBER: [id number] BATSHEVA Delaney2023-09-30 00:00:00* Test Item Value Reference Range Interpretation Comme nts CULTURE, URINE (test code = 70534) SPECIMEN NUMBER: [id number] Chris Cao, [id number] 00:00:00* Test Item Value Reference Range Interpretation Comme nts CULTURE, URINE (test code = 97067) SPECIMEN NUMBER: [id number] Chris Cao, [id number] 00:00:00* Test Item Value Reference Range Interpretation Comme nts CULTURE, URINE (test code = 56785) SPECIMEN NUMBER: [id number] Chris Cao, [id number] 00:00:00* Test Item Value Reference Range Interpretation Comme nts CULTURE, URINE (test code = 75512) SPECIMEN NUMBER: [id number] Chris DohertyLIPID [id number] 04:49:16* Test Item Value Reference Range Interpretation Comme nts CHOLESTEROL (test code = 2210) 272 MG/DL <200 H TRIGLYCERIDES (test code = 2232) 120 MG/DL <150 HDL CHOLESTEROL (test code = 2220) 76 MG/DL >39 CALC LDL CHOL (test code = 2237) 171 MG/DL <100 H NOTE: CALCULATED LDL IS BASED ON ZULEYMA-CISNEROS METHOD WHICHINCLUDES ADJUSTABLE TRIGLYCERIDE:VLDL CHOLESTEROL RATIO.THIS FACTOR VARIES BY MEASURED TRIGLYCERIDE AND NON-HDLCHOLESTEROL CONCENTRATIONS WITH INCREASED CALCULATED LDL SEENIN HIGHER TRIGLYCERIDE OR LOWER NON-HDL SPECIMENS. FOR MOREINFORMATION, SEE CLIENT ANNOUNCEMENT AT [email or web address] RISK RATIO LDL/HDL (test code = 2238) 2.25 RATIO <3.22 UNLESS OTHERW ISE INDICATED, ALL TESTING PERFORMED AT [facility] [address] [place] [id number] [employer] MACHINE OPERATOR: CHRISTINA STEVENS M.D. CLIA NUMBER [id number] [facility] [place]. [id number] HEMOGLOBIN [id number] 02:57:56* Test Item Value Reference Range Interpretation Comme nts HEMOGLOBIN A1c (test code = 21579) 5.6 % 4.2-5.6 HEMOGLOBIN [id number] 00:00:00* Test Item Value Reference Range Interpretation Comme nts HEMOGLOBIN A1c (test code = 45440) 5.6 % Chris Brandt AustinLIPID [id number] 00:00:00* Test Item Value Reference Range Interpretation Comme nts CHOLESTEROL (test code = 2210) 272 MG/DL TRIGLYCERIDES (test code = 2232) 120 MG/DL HDL CHOLESTEROL (test code = 2220) 76 MG/DL CALC LDL CHOL (test code = 2237) 171 MG/DL RISK RATIO LDL/HDL (test cod e = 2238) 2.25 RATIO Chris Brandt AustinHEMOGLOBIN [id number] 00:00:00* Test Item Value Reference Range Interpretation Comme nts HEMOGLOBIN A1c (test code = 06351) 5.6 % Chris Brandt AustinLIPID [id number] 00:00:00* Test Item Value Reference Range Interpretation Comme nts CHOLESTEROL (test code = 2210) 272 MG/DL TRIGLYCERIDES (test code = 2232) 120 MG/DL HDL CHOLESTEROL (test code = 2220) 76 MG/DL CALC LDL CHOL (test code = 2237) 171 MG/DL RISK RATIO LDL/HDL (test cod e = 2238) 2.25 RATIO Chris Brandt AustinHEMOGLOBIN [id number] 00:00:00* Test Item Value Reference Range Interpretation Comme nts HEMOGLOBIN A1c (test code = 60933) 5.6 % Chris Brandt AustinLIPID [id number] 00:00:00* Test Item Value Reference Range Interpretation Comme nts CHOLESTEROL (test code = 2210) 272 MG/DL TRIGLYCERIDES (test code = 2232) 120 MG/DL HDL CHOLESTEROL (test code = 2220) 76 MG/DL CALC LDL CHOL (test code = 2237) 171 MG/DL RISK RATIO LDL/HDL (test cod e = 2238) 2.25 RATIO Chris Brandt AustinHEMOGLOBIN [id number] 00:00:00* Test Item Value Reference Range Interpretation Comme nts HEMOGLOBIN A1c (test code = 19456) 5.6 % Chris Brandt AustinLIPID [id number] 00:00:00* Test Item Value Reference Range Interpretation Comme nts CHOLESTEROL (test code = 2210) 272 MG/DL TRIGLYCERIDES (test code = 2232) 120 MG/DL HDL CHOLESTEROL (test code = 2220) 76 MG/DL CALC LDL CHOL (test code = 2237) 171 MG/DL RISK RATIO LDL/HDL (test cod e = 2238) 2.25 RATIO Chris Brandt AustinHEMOGLOBIN [id number] 00:00:00* Test Item Value Reference Range Interpretation Comme nts HEMOGLOBIN A1c (test code = 45460) 5.6 % Chris Brandt AustinLIPID [id number] 00:00:00* Test Item Value Reference Range Interpretation Comme nts CHOLESTEROL (test code = 2210) 272 MG/DL TRIGLYCERIDES (test code = 2232) 120 MG/DL HDL CHOLESTEROL (test code = 2220) 76 MG/DL CALC LDL CHOL (test code = 2237) 171 MG/DL RISK RATIO LDL/HDL (test cod e = 2238) 2.25 RATIO Chris Brandt AustinHEMOGLOBIN [id number] 00:00:00* Test Item Value Reference Range Interpretation Comme nts HEMOGLOBIN A1c (test code = 59067) 5.6 % Chris DohertyLIPID [id number] 00:00:00* Test Item Value Reference Range Interpretation Comme nts CHOLESTEROL (test code = 2210) 272 MG/DL TRIGLYCERIDES (test code = 2232) 120 MG/DL HDL CHOLESTEROL (test code = 2220) 76 MG/DL CALC LDL CHOL (test code = 2237) 171 MG/DL RISK RATIO LDL/HDL (test cod e = 2238) 2.25 RATIO Chris Brandt AustinHEMOGLOBIN [id number] 00:00:00* Test Item Value Reference Range Interpretation Comme nts HEMOGLOBIN A1c (test code = 51358) 5.6 % Chris Brandt AustinLIPID [id number] 00:00:00* Test Item Value Reference Range Interpretation Comme nts CHOLESTEROL (test code = 2210) 272 MG/DL TRIGLYCERIDES (test code = 2232) 120 MG/DL HDL CHOLESTEROL (test code = 2220) 76 MG/DL CALC LDL CHOL (test code = 2237) 171 MG/DL RISK RATIO LDL/HDL (test cod e = 2238) 2.25 RATIO Chris Brandt AustinTSH, THIRD [id number] 05:54:28* Test Item Value Reference Range Interpretation Comme nts TSH, THIRD GENERATION (test code = 2821) 0.631 UIU/ML 0.400-4.100 HEMOGLOBIN [id number] 04:59:53* Test Item Value Reference Range Interpretation Comme nts HEMOGLOBIN A1c (test code = 06305) 6.1 % 4.2-5.6 H [employer] GUIDELINES FOR HGB A1C: [...] ALTERNATE TESTING OR LABORATORY CONSULTATION. COMPREHENSIVE METABOLIC [id number] 03:54:48* Test Item Value Reference Range Interpretation Comme nts GLUCOSE (test code = 7) 101 MG/DL 70-99 H BUN (test code = 2207) 20 MG/DL 6-20 CREATININE (test code = 2214) 0.99 MG/DL 0.60-1.30 eGFR (2020 CKD-EPI) (test code = 26787) 69 ML/MIN/1.73 >60 CALC BUN/CREAT (test code = 2235) 20 RATIO 6-28 SODIUM (test code = 2230) 144 MEQ/L 133-146 POTASSIUM (test code = [...] RATIO 1.0-2.6 BILIRUBIN, TOTAL (test code = 220) 0.3 MG/DL See_Comment [Automated me ssage] The system which generated this result transmitted reference range: <=1.2. The reference range was not used to interpret this result as normal/abnormal. ALKALINE PHOSPHATASE (test code = 4) 80 U/L 40-132 AST (test code = 2218) 18 U/L 9-40 ALT (test code = 2219) 11 U/L 5-40 LIPID [id number] 03:54:48* Test Item Value Reference Range Interpretation [...] SPECIMENS. FOR MOREINFORMATION, SEE CLIENT ANNOUNCEMENT AT [email or web address] [email or web address] RATIO LDL/HDL (test code = 2238) 1.39 RATIO <3.[address] [facility] has i mportant pathology staff changes effective 04/18/2022. New pathology staff will provide uninterrupted, excellent patient care and clinical consultation. See URL: [email or web address]. UNLESS OTHERWISE INDICATED, ALL TESTING PERFORMED AT [facility] [address] [place] [address] [employer] MACHINE OPERATOR: CHRISTINA STEVENS M.D. CLIA NUMBER [id number] [facility] [place]. [id number] CBC W/AUTO DIFF WITH [id number] 03:51:06* Test Item Value Reference Range Interpretation [...] 0.00-0.10 ABS NUCLEATED RBCS (test code = 59118) 0.00 K/UL 0.00-0.11 [id number] 00:00:00* Test Item Value Reference Range Interpretation Comme nts TSH, THIRD GENERATION (test code = 2821) 0.631 UIU/ML Chris Brandt ChasLIPID [id number] 00:00:00* Test Item Value Reference Range Interpretation Comme nts CHOLESTEROL (test code = 2210) 253 MG/DL TRIGLYCERIDES (test code = 2232) 164 MG/DL HDL CHOLESTEROL (test code = 2220) 94 MG/DL CALC LDL CHOL (test code = 2237) 131 MG/DL RISK RATIO LDL/HDL (test cod e = 2238) 1.39 RATIO Chris Brandt ChasCBC W/AUTO [id number] 00:00:00* Test Item Value Reference Range Interpretation Comme nts WBC (test code = 1001) 9.6 K/UL RBC (test code = 1002) 4.70 M/UL HEMOGLOBIN (test code = 1003) 14.9 G/DL HEMATOCRIT (test code = 1004) 44.1 % MCV (test code = 1005) 93.8 fL MCH (test code = 1006) 31.7 PG MCHC (test code = 1007) 33.8 G/DL RDW (test code = 1038) 12.5 % NEUTROPHILS (test code = 1008) 77.6 % LYMPHOCYTES (test code = 1010) 18.3 % MONOCYTES (test code = 1011) 3.4 % EOSINOPHILS (test code = 1012) 0.0 % BASOPHILS (test code = 1013) 0.1 % IMMATURE GRANULOCYTES (test code = 1036) 0.6 % NUCLEATED RBCS (test code = 1065) 0.0 /100WBC'S PLATELET COUNT (test code = 1015) 272 K/UL ABSOLUTE NEUTROPHILS (test c ode = 1066) 7.42 K/UL ABSOLUTE LYMPHOCYTES (test c ode = 1067) 1.75 K/UL ABSOLUTE MONOCYTES (test cod e = 1068) 0.33 K/UL ABSOLUTE EOSINOPHILS (test c ode = 1040) 0.00 K/UL ABSOLUTE BASOPHILS (test cod e = 1069) 0.01 K/UL ABS IMMATURE GRANULOCYTES (t est code = 1020) 0.06 K/UL ABS NUCLEATED RBCS (test cod e = 33377) 0.00 K/UL Chris DohertyHEMOGLOBIN [id number] 00:00:00* Test Item Value Reference Range Interpretation Comme nts HEMOGLOBIN A1c (test code = 39864) 6.1 % Chris DohertyCOMPREHENSIVE METABOLIC [id number] 00:00:00* Test Item Value Reference Range Interpretation Comme nts GLUCOSE (test code = 2217) 101 MG/DL BUN (test code = 2208) 20 MG/DL CREATININE (test code = 2214) 0.99 MG/DL eGFR (2020 CKD-EPI) (test co de = 18788) 69 ML/MIN/1.73 CALC BUN/CREAT (test code = 2235) 20 RATIO SODIUM (test code = 2231) 144 MEQ/L POTASSIUM (test code = 2228) 4.5 MEQ/L CHLORIDE (test code = 2215) 101 MEQ/L CARBON DIOXIDE (test code = 2206) 30 MEQ/L CALCIUM (test code = 2209) 9.8 MG/DL PROTEIN, TOTAL (test code = 2229) 7.0 G/DL ALBUMIN (test code = 2201) 4.4 G/DL CALC GLOBULIN (test code = 2240) 2.6 G/DL CALC A/G RATIO (test code = 2234) 1.7 RATIO BILIRUBIN, TOTAL (test code = 2207) 0.3 MG/DL ALKALINE PHOSPHATASE (test code = 2204) 80 U/L AST (test code = 2218) 18 U/L ALT (test code = 2219) 11 U/L Chris [id number] 00:00:00* Test Item Value Reference Range Interpretation Comme nts TSH, THIRD GENERATION (test code = 2821) 0.631 UIU/ML Chris DohertyLIPID [id number] 00:00:00* Test Item Value Reference Range Interpretation Comme nts CHOLESTEROL (test code = 2210) 253 MG/DL TRIGLYCERIDES (test code = 2232) 164 MG/DL HDL CHOLESTEROL (test code = 2220) 94 MG/DL CALC LDL CHOL (test code = 2237) 131 MG/DL RISK RATIO LDL/HDL (test cod e = 2238) 1.39 RATIO Chris DohertyCBC W/AUTO [id number] 00:00:00* Test Item Value Reference Range Interpretation Comme nts WBC (test code = 1001) 9.6 K/UL RBC (test code = 1002) 4.70 M/UL HEMOGLOBIN (test code = 1003) 14.9 G/DL HEMATOCRIT (test code = 1004) 44.1 % MCV (test code = 1005) 93.8 fL MCH (test code = 1006) 31.7 PG MCHC (test code = 1007) 33.8 G/DL RDW (test code = 1038) 12.5 % NEUTROPHILS (test code = 1008) 77.6 % LYMPHOCYTES (test code = 1010) 18.3 % MONOCYTES (test code = 1011) 3.4 % EOSINOPHILS (test code = 1012) 0.0 % BASOPHILS (test code = 1013) 0.1 % IMMATURE GRANULOCYTES (test code = 1036) 0.6 % NUCLEATED RBCS (test code = 1065) 0.0 /100WBC'S PLATELET COUNT (test code = 1015) 272 K/UL ABSOLUTE NEUTROPHILS (test c ode = 1066) 7.42 K/UL ABSOLUTE LYMPHOCYTES (test c ode = 1067) 1.75 K/UL ABSOLUTE MONOCYTES (test cod e = 1068) 0.33 K/UL ABSOLUTE EOSINOPHILS (test c ode = 1040) 0.00 K/UL ABSOLUTE BASOPHILS (test cod e = 1069) 0.01 K/UL ABS IMMATURE GRANULOCYTES (t est code = 1020) 0.06 K/UL ABS NUCLEATED RBCS (test cod e = 20294) 0.00 K/UL Chris DohertyHEMOGLOBIN [id number] 00:00:00* Test Item Value Reference Range Interpretation Comme ld HEMOGLOBIN A1c (test code = 89218) 6.1 % Chris DohertyCOMPREHENSIVE METABOLIC [id number] 00:00:00* Test Item Value Reference Range Interpretation Comme nts GLUCOSE (test code = 2217) 101 MG/DL BUN (test code = 2208) 20 MG/DL CREATININE (test code = 2214) 0.99 MG/DL eGFR (2020 CKD-EPI) (test co de = 82504) 69 ML/MIN/1.73 CALC BUN/CREAT (test code = 2235) 20 RATIO SODIUM (test code = 2231) 144 MEQ/L POTASSIUM (test code = 2228) 4.5 MEQ/L CHLORIDE (test code = 2215) 101 MEQ/L CARBON DIOXIDE (test code = 2206) 30 MEQ/L CALCIUM (test code = 2209) 9.8 MG/DL PROTEIN, TOTAL (test code = 2229) 7.0 G/DL ALBUMIN (test code = 2201) 4.4 G/DL CALC GLOBULIN (test code = 2240) 2.6 G/DL CALC A/G RATIO (test code = 2234) 1.7 RATIO BILIRUBIN, TOTAL (test code = 2207) 0.3 MG/DL ALKALINE PHOSPHATASE (test code = 2204) 80 U/L AST (test code = 2218) 18 U/L ALT (test code = 2219) 11 U/L Chris [id number] 00:00:00* Test Item Value Reference Range Interpretation Comme nts TSH, THIRD GENERATION (test code = 2821) 0.631 UIU/ML Chris DohertyLIPID [id number] 00:00:00* Test Item Value Reference Range Interpretation Comme nts CHOLESTEROL (test code = 2210) 253 MG/DL TRIGLYCERIDES (test code = 2232) 164 MG/DL HDL CHOLESTEROL (test code = 2220) 94 MG/DL CALC LDL CHOL (test code = 2237) 131 MG/DL RISK RATIO LDL/HDL (test cod e = 2238) 1.39 RATIO Chris DohertyCBC W/AUTO [id number] 00:00:00* Test Item Value Reference Range Interpretation Comme nts WBC (test code = 1001) 9.6 K/UL RBC (test code = 1002) 4.70 M/UL HEMOGLOBIN (test code = 1003) 14.9 G/DL HEMATOCRIT (test code = 1004) 44.1 % MCV (test code = 1005) 93.8 fL MCH (test code = 1006) 31.7 PG MCHC (test code = 1007) 33.8 G/DL RDW (test code = 1038) 12.5 % NEUTROPHILS (test code = 1008) 77.6 % LYMPHOCYTES (test code = 1010) 18.3 % MONOCYTES (test code = 1011) 3.4 % EOSINOPHILS (test code = 1012) 0.0 % BASOPHILS (test code = 1013) 0.1 % IMMATURE GRANULOCYTES (test code = 1036) 0.6 % NUCLEATED RBCS (test code = 1065) 0.0 /100WBC'S PLATELET COUNT (test code = 1015) 272 K/UL ABSOLUTE NEUTROPHILS (test c ode = 1066) 7.42 K/UL ABSOLUTE LYMPHOCYTES (test c ode = 1067) 1.75 K/UL ABSOLUTE MONOCYTES (test cod e = 1068) 0.33 K/UL ABSOLUTE EOSINOPHILS (test c ode = 1040) 0.00 K/UL ABSOLUTE BASOPHILS (test cod e = 1069) 0.01 K/UL ABS IMMATURE GRANULOCYTES (t est code = 1020) 0.06 K/UL ABS NUCLEATED RBCS (test cod e = 37328) 0.00 K/UL Chris DohertyHEMOGLOBIN [id number] 00:00:00* Test Item Value Reference Range Interpretation Comme nts HEMOGLOBIN A1c (test code = 01448) 6.1 % Chris DohertyCOMPREHENSIVE METABOLIC [id number] 00:00:00* Test Item Value Reference Range Interpretation Comme nts GLUCOSE (test code = 2217) 101 MG/DL BUN (test code = 2208) 20 MG/DL CREATININE (test code = 2214) 0.99 MG/DL eGFR (2020 CKD-EPI) (test co de = 30549) 69 ML/MIN/1.73 CALC BUN/CREAT (test code = 2235) 20 RATIO SODIUM (test code = 2231) 144 MEQ/L POTASSIUM (test code = 2228) 4.5 MEQ/L CHLORIDE (test code = 2215) 101 MEQ/L CARBON DIOXIDE (test code = 2206) 30 MEQ/L CALCIUM (test code = 2209) 9.8 MG/DL PROTEIN, TOTAL (test code = 2229) 7.0 G/DL ALBUMIN (test code = 2201) 4.4 G/DL CALC GLOBULIN (test code = 2240) 2.6 G/DL CALC A/G RATIO (test code = 2234) 1.7 RATIO BILIRUBIN, TOTAL (test code = 2207) 0.3 MG/DL ALKALINE PHOSPHATASE (test code = 2204) 80 U/L AST (test code = 2218) 18 U/L ALT (test code = 2219) 11 U/L Chris [id number] 00:00:00* Test Item Value Reference Range Interpretation Comme nts TSH, THIRD GENERATION (test code = 2821) 0.631 UIU/ML Chris DohertyLIPID [id number] 00:00:00* Test Item Value Reference Range Interpretation Comme nts CHOLESTEROL (test code = 2210) 253 MG/DL TRIGLYCERIDES (test code = 2232) 164 MG/DL HDL CHOLESTEROL (test code = 2220) 94 MG/DL CALC LDL CHOL (test code = 2237) 131 MG/DL RISK RATIO LDL/HDL (test cod e = 2238) 1.39 RATIO Chris DohertyCBC W/AUTO [id number] 00:00:00* Test Item Value Reference Range Interpretation Comme nts WBC (test code = 1001) 9.6 K/UL RBC (test code = 1002) 4.70 M/UL HEMOGLOBIN (test code = 1003) 14.9 G/DL HEMATOCRIT (test code = 1004) 44.1 % MCV (test code = 1005) 93.8 fL MCH (test code = 1006) 31.7 PG MCHC (test code = 1007) 33.8 G/DL RDW (test code = 1038) 12.5 % NEUTROPHILS (test code = 1008) 77.6 % LYMPHOCYTES (test code = 1010) 18.3 % MONOCYTES (test code = 1011) 3.4 % EOSINOPHILS (test code = 1012) 0.0 % BASOPHILS (test code = 1013) 0.1 % IMMATURE GRANULOCYTES (test code = 1036) 0.6 % NUCLEATED RBCS (test code = 1065) 0.0 /100WBC'S PLATELET COUNT (test code = 1015) 272 K/UL ABSOLUTE NEUTROPHILS (test c ode = 1066) 7.42 K/UL ABSOLUTE LYMPHOCYTES (test c ode = 1067) 1.75 K/UL ABSOLUTE MONOCYTES (test cod e = 1068) 0.33 K/UL ABSOLUTE EOSINOPHILS (test c ode = 1040) 0.00 K/UL ABSOLUTE BASOPHILS (test cod e = 1069) 0.01 K/UL ABS IMMATURE GRANULOCYTES (t est code = 1020) 0.06 K/UL ABS NUCLEATED RBCS (test cod e = 09724) 0.00 K/UL Chris Brandt ChasHEMOGLOBIN [id number] 00:00:00* Test Item Value Reference Range Interpretation Comme nts HEMOGLOBIN A1c (test code = 80331) 6.1 % Chris DohertyCOMPREHENSIVE METABOLIC [id number] 00:00:00* Test Item Value Reference Range Interpretation Comme nts GLUCOSE (test code = 2217) 101 MG/DL BUN (test code = 2208) 20 MG/DL CREATININE (test code = 2214) 0.99 MG/DL eGFR (2020 CKD-EPI) (test co de = 64553) 69 ML/MIN/1.73 CALC BUN/CREAT (test code = 2235) 20 RATIO SODIUM (test code = 2231) 144 MEQ/L POTASSIUM (test code = 2228) 4.5 MEQ/L CHLORIDE (test code = 2215) 101 MEQ/L CARBON DIOXIDE (test code = 2206) 30 MEQ/L CALCIUM (test code = 2209) 9.8 MG/DL PROTEIN, TOTAL (test code = 2229) 7.0 G/DL ALBUMIN (test code = 2201) 4.4 G/DL CALC GLOBULIN (test code = 2240) 2.6 G/DL CALC A/G RATIO (test code = 2234) 1.7 RATIO BILIRUBIN, TOTAL (test code = 2207) 0.3 MG/DL ALKALINE PHOSPHATASE (test code = 2204) 80 U/L AST (test code = 2218) 18 U/L ALT (test code = 2219) 11 U/L Chris [id number] 00:00:00* Test Item Value Reference Range Interpretation Comme nts TSH, THIRD GENERATION (test code = 2821) 0.631 UIU/ML Chris DohertyLIPID [id number] 00:00:00* Test Item Value Reference Range Interpretation Comme nts CHOLESTEROL (test code = 2210) 253 MG/DL TRIGLYCERIDES (test code = 2232) 164 MG/DL HDL CHOLESTEROL (test code = 2220) 94 MG/DL CALC LDL CHOL (test code = 2237) 131 MG/DL RISK RATIO LDL/HDL (test cod e = 2238) 1.39 RATIO Chris DohertyCBC W/AUTO [id number] 00:00:00* Test Item Value Reference Range Interpretation Comme nts WBC (test code = 1001) 9.6 K/UL RBC (test code = 1002) 4.70 M/UL HEMOGLOBIN (test code = 1003) 14.9 G/DL HEMATOCRIT (test code = 1004) 44.1 % MCV (test code = 1005) 93.8 fL MCH (test code = 1006) 31.7 PG MCHC (test code = 1007) 33.8 G/DL RDW (test code = 1038) 12.5 % NEUTROPHILS (test code = 1008) 77.6 % LYMPHOCYTES (test code = 1010) 18.3 % MONOCYTES (test code = 1011) 3.4 % EOSINOPHILS (test code = 1012) 0.0 % BASOPHILS (test code = 1013) 0.1 % IMMATURE GRANULOCYTES (test code = 1036) 0.6 % NUCLEATED RBCS (test code = 1065) 0.0 /100WBC'S PLATELET COUNT (test code = 1015) 272 K/UL ABSOLUTE NEUTROPHILS (test c ode = 1066) 7.42 K/UL ABSOLUTE LYMPHOCYTES (test c ode = 1067) 1.75 K/UL ABSOLUTE MONOCYTES (test cod e = 1068) 0.33 K/UL ABSOLUTE EOSINOPHILS (test c ode = 1040) 0.00 K/UL ABSOLUTE BASOPHILS (test cod e = 1069) 0.01 K/UL ABS IMMATURE GRANULOCYTES (t est code = 1020) 0.06 K/UL ABS NUCLEATED RBCS (test cod e = 14507) 0.00 K/UL Chris DohertyHEMOGLOBIN [id number] 00:00:00* Test Item Value Reference Range Interpretation Comme nts HEMOGLOBIN A1c (test code = 15296) 6.1 % Chris DohertyCOMPREHENSIVE METABOLIC [id number] 00:00:00* Test Item Value Reference Range Interpretation Comme nts GLUCOSE (test code = 2217) 101 MG/DL BUN (test code = 2208) 20 MG/DL CREATININE (test code = 2214) 0.99 MG/DL eGFR (2020 CKD-EPI) (test co de = 60730) 69 ML/MIN/1.73 CALC BUN/CREAT (test code = 2235) 20 RATIO SODIUM (test code = 2231) 144 MEQ/L POTASSIUM (test code = 2228) 4.5 MEQ/L CHLORIDE (test code = 2215) 101 MEQ/L CARBON DIOXIDE (test code = 2206) 30 MEQ/L CALCIUM (test code = 2209) 9.8 MG/DL PROTEIN, TOTAL (test code = 2229) 7.0 G/DL ALBUMIN (test code = 2201) 4.4 G/DL CALC GLOBULIN (test code = 2240) 2.6 G/DL CALC A/G RATIO (test code = 2234) 1.7 RATIO BILIRUBIN, TOTAL (test code = 2207) 0.3 MG/DL ALKALINE PHOSPHATASE (test code = 2204) 80 U/L AST (test code = 2218) 18 U/L ALT (test code = 2219) 11 U/L Chris [id number] 00:00:00* Test Item Value Reference Range Interpretation Comme nts TSH, THIRD GENERATION (test code = 2821) 0.631 UIU/ML Chris DohertyLIPID [id number] 00:00:00* Test Item Value Reference Range Interpretation Comme nts CHOLESTEROL (test code = 2210) 253 MG/DL TRIGLYCERIDES (test code = 2232) 164 MG/DL HDL CHOLESTEROL (test code = 2220) 94 MG/DL CALC LDL CHOL (test code = 2237) 131 MG/DL RISK RATIO LDL/HDL (test cod e = 2238) 1.39 RATIO Chris DohertyCBC W/AUTO [id number] 00:00:00* Test Item Value Reference Range Interpretation Comme nts WBC (test code = 1001) 9.6 K/UL RBC (test code = 1002) 4.70 M/UL HEMOGLOBIN (test code = 1003) 14.9 G/DL HEMATOCRIT (test code = 1004) 44.1 % MCV (test code = 1005) 93.8 fL MCH (test code = 1006) 31.7 PG MCHC (test code = 1007) 33.8 G/DL RDW (test code = 1038) 12.5 % NEUTROPHILS (test code = 1008) 77.6 % LYMPHOCYTES (test code = 1010) 18.3 % MONOCYTES (test code = 1011) 3.4 % EOSINOPHILS (test code = 1012) 0.0 % BASOPHILS (test code = 1013) 0.1 % IMMATURE GRANULOCYTES (test code = 1036) 0.6 % NUCLEATED RBCS (test code = 1065) 0.0 /100WBC'S PLATELET COUNT (test code = 1015) 272 K/UL ABSOLUTE NEUTROPHILS (test c ode = 1066) 7.42 K/UL ABSOLUTE LYMPHOCYTES (test c ode = 1067) 1.75 K/UL ABSOLUTE MONOCYTES (test cod e = 1068) 0.33 K/UL ABSOLUTE EOSINOPHILS (test c ode = 1040) 0.00 K/UL ABSOLUTE BASOPHILS (test cod e = 1069) 0.01 K/UL ABS IMMATURE GRANULOCYTES (t est code = 1020) 0.06 K/UL ABS NUCLEATED RBCS (test cod e = 80246) 0.00 K/UL Chris DohertyHEMOGLOBIN [id number] 00:00:00* Test Item Value Reference Range Interpretation Comme nts HEMOGLOBIN A1c (test code = 37158) 6.1 % Chris DohertyCOMPREHENSIVE METABOLIC [id number] 00:00:00* Test Item Value Reference Range Interpretation Comme nts GLUCOSE (test code = 2217) 101 MG/DL BUN (test code = 2208) 20 MG/DL CREATININE (test code = 2214) 0.99 MG/DL eGFR (2020 CKD-EPI) (test co de = 97138) 69 ML/MIN/1.73 CALC BUN/CREAT (test code = 2235) 20 RATIO SODIUM (test code = 2231) 144 MEQ/L POTASSIUM (test code = 2228) 4.5 MEQ/L CHLORIDE (test code = 2215) 101 MEQ/L CARBON DIOXIDE (test code = 2206) 30 MEQ/L CALCIUM (test code = 2209) 9.8 MG/DL PROTEIN, TOTAL (test code = 2229) 7.0 G/DL ALBUMIN (test code = 2201) 4.4 G/DL CALC GLOBULIN (test code = 2240) 2.6 G/DL CALC A/G RATIO (test code = 2234) 1.7 RATIO BILIRUBIN, TOTAL (test code = 2207) 0.3 MG/DL ALKALINE PHOSPHATASE (test code = 2204) 80 U/L AST (test code = 2218) 18 U/L ALT (test code = 2219) 11 U/L Chris [id number] 00:00:00* Test Item Value Reference Range Interpretation Comme nts TSH, THIRD GENERATION (test code = 2821) 0.631 UIU/ML Chris DohertyLIPID [id number] 00:00:00* Test Item Value Reference Range Interpretation Comme nts CHOLESTEROL (test code = 2210) 253 MG/DL TRIGLYCERIDES (test code = 2232) 164 MG/DL HDL CHOLESTEROL (test code = 2220) 94 MG/DL CALC LDL CHOL (test code = 2237) 131 MG/DL RISK RATIO LDL/HDL (test cod e = 2238) 1.39 RATIO Chris DohertyCBC W/AUTO [id number] 00:00:00* Test Item Value Reference Range Interpretation Comme nts WBC (test code = 1001) 9.6 K/UL RBC (test code = 1002) 4.70 M/UL HEMOGLOBIN (test code = 1003) 14.9 G/DL HEMATOCRIT (test code = 1004) 44.1 % MCV (test code = 1005) 93.8 fL MCH (test code = 1006) 31.7 PG MCHC (test code = 1007) 33.8 G/DL RDW (test code = 1038) 12.5 % NEUTROPHILS (test code = 1008) 77.6 % LYMPHOCYTES (test code = 1010) 18.3 % MONOCYTES (test code = 1011) 3.4 % EOSINOPHILS (test code = 1012) 0.0 % BASOPHILS (test code = 1013) 0.1 % IMMATURE GRANULOCYTES (test code = 1036) 0.6 % NUCLEATED RBCS (test code = 1065) 0.0 /100WBC'S PLATELET COUNT (test code = 1015) 272 K/UL ABSOLUTE NEUTROPHILS (test c ode = 1066) 7.42 K/UL ABSOLUTE LYMPHOCYTES (test c ode = 1067) 1.75 K/UL ABSOLUTE MONOCYTES (test cod e = 1068) 0.33 K/UL ABSOLUTE EOSINOPHILS (test c ode = 1040) 0.00 K/UL ABSOLUTE BASOPHILS (test cod e = 1069) 0.01 K/UL ABS IMMATURE GRANULOCYTES (t est code = 1020) 0.06 K/UL ABS NUCLEATED RBCS (test cod e = 95149) 0.00 K/UL Chris DohertyHEMOGLOBIN [id number] 00:00:00* Test Item Value Reference Range Interpretation Comme nts HEMOGLOBIN A1c (test code = 32947) 6.1 % Chris DohertyCOMPREHENSIVE METABOLIC [id number] 00:00:00* Test Item Value Reference Range Interpretation Comme nts GLUCOSE (test code = 2217) 101 MG/DL BUN (test code = 2208) 20 MG/DL CREATININE (test code = 2214) 0.99 MG/DL eGFR (2020 CKD-EPI) (test co de = 42734) 69 ML/MIN/1.73 CALC BUN/CREAT (test code = 2235) 20 RATIO SODIUM (test code = 2231) 144 MEQ/L POTASSIUM (test code = 2228) 4.5 MEQ/L CHLORIDE (test code = 2215) 101 MEQ/L CARBON DIOXIDE (test code = 2206) 30 MEQ/L CALCIUM (test code = 2209) 9.8 MG/DL PROTEIN, TOTAL (test code = 2229) 7.0 G/DL ALBUMIN (test code = 2201) 4.4 G/DL CALC GLOBULIN (test code = 2240) 2.6 G/DL CALC A/G RATIO (test code = 2234) 1.7 RATIO BILIRUBIN, TOTAL (test code = 2207) 0.3 MG/DL ALKALINE PHOSPHATASE (test code = 2204) 80 U/L AST (test code = 2218) 18 U/L ALT (test code = 2219) 11 U/L Chris F AustinOCCULT BLD,FECAL,IMMUNOASSAY [id number] 11:30:47* Test Item Value Reference Range Interpretation Comme nts OCCULT BLD, FECAL (test code = 12999) NEGATIVE NEGATIVE [facility] has important pathology staff changes effective 04/18/2022. New pathology staff will provide uninterrupted, excellent patient care and clinical consultation. See URL: [email or web address]. UNLESS OTHERWISE INDICATED, ALL TESTING PERFORMED AT [facility] [address] [place] [address] FREEZER MACHINE OPERATOR: CHRISTINA STEVENS M.D. CLIA NUMBER [id number] [facility] [place]. [id number] OCCULT BLD,FECAL,IMMUNOASSAY [id number] 00:00:00* Test Item Value Reference Range Interpretation Comme nts OCCULT BLD, FECAL (test code = 33862) NEGATIVE Chris F AustinOCCULT BLD,FECAL,IMMUNOASSAY [id number] 00:00:00* Test Item Value Reference Range Interpretation Comme nts OCCULT BLD, FECAL (test code = 71204) NEGATIVE Chris F AustinOCCULT BLD,FECAL,IMMUNOASSAY [id number] 00:00:00* Test Item Value Reference Range Interpretation Comme nts OCCULT BLD, FECAL (test code = 53598) NEGATIVE Chris F AustinOCCULT BLD,FECAL,IMMUNOASSAY [id number] 00:00:00* Test Item Value Reference Range Interpretation Comme nts OCCULT BLD, FECAL (test code = 57970) NEGATIVE Chris F AustinOCCULT BLD,FECAL,IMMUNOASSAY [id number] 00:00:00* Test Item Value Reference Range Interpretation Comme nts OCCULT BLD, FECAL (test code = 28686) NEGATIVE Chris F AustinOCCULT BLD,FECAL,IMMUNOASSAY [id number] 00:00:00* Test Item Value Reference Range Interpretation Comme nts OCCULT BLD, FECAL (test code = 47443) NEGATIVE Chris F AustinOCCULT BLD,FECAL,IMMUNOASSAY [id number] 00:00:00* Test Item Value Reference Range Interpretation Comme nts OCCULT BLD, FECAL (test code = 38552) NEGATIVE Chris F AustinRSV BY [id number] 00:00:00* Test Item Value Reference Range Interpretation Comme nts RSV BY DFA (test code = 18522) Negative SOURCE (test code = 24396) Not Provided Chris F AustinRSV BY [id number] 00:00:00* Test Item Value Reference Range Interpretation Comme nts RSV BY DFA (test code = 89924) Negative SOURCE (test code = 47884) Not Provided Chris F AustinRSV BY [id number] 00:00:00* Test Item Value Reference Range Interpretation Comme nts RSV BY DFA (test code = 68881) Negative SOURCE (test code = 50389) Not Provided Chris F AustinRSV BY [id number] 00:00:00* Test Item Value Reference Range Interpretation Comme nts RSV BY DFA (test code = 92831) Negative SOURCE (test code = 70648) Not Provided Chris F AustinRSV BY [id number] 00:00:00* Test Item Value Reference Range Interpretation Comme nts RSV BY DFA (test code = 45688) Negative SOURCE (test code = 80537) Not Provided Chris F AustinRSV BY [id number] 00:00:00* Test Item Value Reference Range Interpretation Comme nts RSV BY DFA (test code = 34344) Negative SOURCE (test code = 39522) Not Provided Chris F AustinRSV BY [id number] 00:00:00* Test Item Value Reference Range Interpretation Comme nts RSV BY DFA (test code = 56234) Negative SOURCE (test code = 40640) Not Provided RSV BY [id number] 00:00:00* Test Item Value Reference Range Interpretation Comme nts RSV BY DFA (test code = 91482) Negative SOURCE (test code = 08737) Not Provided RSV BY [id number] 00:00:00* Test Item Value Reference Range Interpretation Comme nts RSV BY DFA (test code = 47881) Negative SOURCE (test code = 86171) Not Provided Chris DohertySARS-CoV-2 (COVID-19) by RT-PCR (HIGH RISK)2020-11-23 00:00:00* Test Item Value Reference Range Interpretation Comme nts SARS-CoV-2 INTERPRETATION (t est code = 18816) NEGATIVE SOURCE (test code = 69537) NOT SPECIFIED Chris Brandt XjzzswDYKG-DpE-4 (COVID-19) by RT-PCR (HIGH RISK)2020-11-23 00:00:00* Test Item Value Reference Range Interpretation Comme nts SARS-CoV-2 INTERPRETATION (t est code = 63112) NEGATIVE SOURCE (test code = 70089) NOT SPECIFIED Chris Brandt SlojclAJUG-WrK-3 (COVID-19) by RT-PCR (HIGH RISK)2020-11-23 00:00:00* Test Item Value Reference Range Interpretation Comme nts SARS-CoV-2 INTERPRETATION (t est code = 53105) NEGATIVE SOURCE (test code = 11123) NOT SPECIFIED Chris Brandt GfbuhuLAKY-IwW-8 (COVID-19) by RT-PCR (HIGH RISK)2020-11-23 00:00:00* Test Item Value Reference Range Interpretation Comme nts SARS-CoV-2 INTERPRETATION (t est code = 04480) NEGATIVE SOURCE (test code = 40946) NOT SPECIFIED Chris Brandt FupaivCKTL-QjR-8 (COVID-19) by RT-PCR (HIGH RISK)2020-11-23 00:00:00* Test Item Value Reference Range Interpretation Comme nts SARS-CoV-2 INTERPRETATION (t est code = 04729) NEGATIVE SOURCE (test code = 64542) NOT SPECIFIED Chris Brandt StexebSASI-OwT-4 (COVID-19) by RT-PCR (HIGH RISK)2020-11-23 00:00:00* Test Item Value Reference Range Interpretation Comme nts SARS-CoV-2 INTERPRETATION (t est code = 85110) NEGATIVE SOURCE (test code = 29705) NOT SPECIFIED Chris Brandt DwzgttCXDG-CjR-1 (COVID-19) by RT-PCR (HIGH RISK)2020-11-23 00:00:00* Test Item Value Reference Range Interpretation Comme nts SARS-CoV-2 INTERPRETATION (t est code = 70899) NEGATIVE SOURCE (test code = 31500) NOT SPECIFIED SARS-CoV-2 (COVID-19) by RT-PCR (HIGH RISK)2020-11-23 00:00:00* Test Item Value Reference Range Interpretation Comme nts SARS-CoV-2 INTERPRETATION (t est code = 95263) NEGATIVE SOURCE (test code = 45492) NOT SPECIFIED SARS-CoV-2 (COVID-19) by RT-PCR (HIGH RISK)2020-11-23 00:00:00* Test Item Value Reference Range Interpretation Comme nts SARS-CoV-2 INTERPRETATION (t est code = 50373) NEGATIVE SOURCE (test code = 34758) NOT SPECIFIED Chris [id number] 00:00:00* Test Item Value Reference Range Interpretation Comme nts TSH, THIRD GENERATION (test code = 2821) 1.080 UIU/ML Chris DohertyCBC W/AUTO [id number] 00:00:00* Test Item Value Reference Range Interpretation [...] ABS NUCLEATED RBCS (test cod e = 04628) 0.00 K/UL Chris DohertyVITAMIN D, 25 [id number] 00:00:00* Test Item Value Reference Range Interpretation Comme nts VITAMIN D, 25 OH (test code = 4958) 15 NG/ML Chris [id number] 00:00:00* Test Item Value Reference Range Interpretation Comme nts TSH, THIRD GENERATION (test code = 2821) 1.080 UIU/ML Chris DohertyCBC W/AUTO [id number] 00:00:00* Test Item Value Reference Range Interpretation [...] ABS NUCLEATED RBCS (test cod e = 92175) 0.00 K/UL Chris DohertyVITAMIN D, 25 [id number] 00:00:00* Test Item Value Reference Range Interpretation Comme nts VITAMIN D, 25 OH (test code = 4958) 15 NG/ML Chris [id number] 00:00:00* Test Item Value Reference Range Interpretation Comme nts TSH, THIRD GENERATION (test code = 2821) 1.080 UIU/ML Chris DohertyCBC W/AUTO [id number] 00:00:00* Test Item Value Reference Range Interpretation [...] ABS NUCLEATED RBCS (test cod e = 29441) 0.00 K/UL Chris DohertyVITAMIN D, 25 [id number] 00:00:00* Test Item Value Reference Range Interpretation Comme nts VITAMIN D, 25 OH (test code = 4958) 15 NG/ML Chris [id number] 00:00:00* Test Item Value Reference Range Interpretation Comme nts TSH, THIRD GENERATION (test code = 2821) 1.080 UIU/ML Chris DohertyCBC W/AUTO [id number] 00:00:00* Test Item Value Reference Range Interpretation [...] ABS NUCLEATED RBCS (test cod e = 77462) 0.00 K/UL Chris DohertyVITAMIN D, 25 [id number] 00:00:00* Test Item Value Reference Range Interpretation Comme nts VITAMIN D, 25 OH (test code = 4958) 15 NG/ML Chris Brandt [id number] 00:00:00* Test Item Value Reference Range Interpretation Comme nts TSH, THIRD GENERATION (test code = 2821) 1.080 UIU/ML [facility] [id number] 00:00:00* Test Item Value Reference Range Interpretation [...] ABS NUCLEATED RBCS (test cod e = 42624) 0.00 K/UL Chris Brandt CahsVITAMIN D, 25 [id number] 00:00:00* Test Item Value Reference Range Interpretation Comme nts VITAMIN D, 25 OH (test code = 4958) 15 NG/ML Chris Brandt [id number] 00:00:00* Test Item Value Reference Range Interpretation Comme nts TSH, THIRD GENERATION (test code = 2821) 1.080 UIU/ML Chris Brandt [id number] 00:00:00* Test Item Value Reference Range Interpretation Comme nts TSH, THIRD GENERATION (test code = 2821) 1.080 UIU/ML CBC W/AUTO [id number] 00:00:00* Test Item Value Reference Range Interpretation [...] ABS NUCLEATED RBCS (test cod e = 04443) 0.00 K/UL VITAMIN D, 25 [id number] 00:00:00* Test Item Value Reference Range Interpretation Comme nts VITAMIN D, 25 OH (test code = 4958) 15 NG/ML [id number] 00:00:00* Test Item Value Reference Range Interpretation Comme nts TSH, THIRD GENERATION (test code = 2821) 1.080 UIU/ML CBC W/AUTO [id number] 00:00:00* Test Item Value Reference Range Interpretation [...] ABS NUCLEATED RBCS (test cod e = 71843) 0.00 K/UL VITAMIN D, 25 [id number] 00:00:00* Test Item Value Reference Range Interpretation Comme nts VITAMIN D, 25 OH (test code = 4958) 15 NG/ML CBC W/AUTO [id number] 00:00:00* Test Item Value Reference Range Interpretation [...] ABS NUCLEATED RBCS (test cod e = 08187) 0.00 K/UL Chris DohertyVITAMIN D, 25 [id number] 00:00:00* Test Item Value Reference Range Interpretation Comme nts VITAMIN D, 25 OH (test code = 4958) 15 NG/ML Chris [id number] 00:00:00* Test Item Value Reference Range Interpretation Comme nts TSH, THIRD GENERATION (test code = 2821) 1.080 UIU/ML Chris DohertyCBC W/AUTO [id number] 00:00:00* Test Item Value Reference Range Interpretation [...] ABS NUCLEATED RBCS (test cod e = 70597) 0.00 K/UL Chris DohertyVITAMIN D, 25 [id number] 00:00:00* Test Item Value Reference Range Interpretation Comme nts VITAMIN D, 25 OH (test code = 4958) 15 NG/ML Chris DohertySARS-COV-2 (COVID19), NAAT [ADDED]2020-03-04 00:00:00* Test Item Value Reference Range Interpretation Comme nts SARS-CoV-2 INTERPRETATION (t est code = 54334) POSITIVE SOURCE (test code = 90125) NOT SPECIFIED Chris Brandt LdbpreGRVN-BDS-2 (COVID19), NAAT [ADDED]2020-03-04 00:00:00* Test Item Value Reference Range Interpretation Comme nts SARS-CoV-2 INTERPRETATION (t est code = 72536) POSITIVE SOURCE (test code = 04273) NOT SPECIFIED Chris Brandt ScdvfaWDCQ-GHS-1 (COVID19), NAAT [ADDED]2020-03-04 00:00:00* Test Item Value Reference Range Interpretation Comme nts SARS-CoV-2 INTERPRETATION (t est code = 82116) POSITIVE SOURCE (test code = 34534) NOT SPECIFIED Chris DohertySARS-COV-2 (COVID19), NAAT [ADDED]2020-03-04 00:00:00* Test Item Value Reference Range Interpretation Comme nts SARS-CoV-2 INTERPRETATION (t est code = 17783) POSITIVE SOURCE (test code = 44134) NOT SPECIFIED Chris DohertySARS-COV-2 (COVID19), NAAT [ADDED]2020-03-04 00:00:00* Test Item Value Reference Range Interpretation Comme nts SARS-CoV-2 INTERPRETATION (t est code = 58397) POSITIVE SOURCE (test code = 57048) NOT SPECIFIED Chris Brandt RezupzOWBV-ZJC-6 (COVID19), NAAT [ADDED]2020-03-04 00:00:00* Test Item Value Reference Range Interpretation Comme nts SARS-CoV-2 INTERPRETATION (t est code = 50756) POSITIVE SOURCE (test code = 50047) NOT SPECIFIED Chris DohertySARS-COV-2 (COVID19), NAAT [ADDED]2020-03-04 00:00:00* Test Item Value Reference Range Interpretation Comme nts SARS-CoV-2 INTERPRETATION (t est code = 56866) POSITIVE SOURCE (test code = 73755) NOT SPECIFIED SARS-COV-2 (COVID19), NAAT [ADDED]2020-03-04 00:00:00* Test Item Value Reference Range Interpretation Comme nts SARS-CoV-2 INTERPRETATION (t est code = 67466) POSITIVE SOURCE (test code = 40155) NOT SPECIFIED SARS-COV-2 (COVID19), NAAT [ADDED]2020-03-04 00:00:00* Test Item Value Reference Range Interpretation Comme nts SARS-CoV-2 INTERPRETATION (t est code = 57411) POSITIVE SOURCE (test code = 29084) NOT SPECIFIED Chris Doherty- XR CHEST 2 [id number] 11:11:00 [facility] : 1970 Sex: F FAX: Jn Barton MD [phone] [place]: [address]: REG Name: NICOLEAMADA [facility] : 1970 Age/S: 49/F [address] [place] [address] Unit #: [id number] Loc: [place] [address] Phys: Jn Barrios MD Acct: [id number] Dis Date: Status: REG CLI PHONE #: [phone] Exam Date: 12/08/2019 1111 FAX #: [phone] Reason: R06.02, SHORTNESS OF BREATH. EXAMS: CPT CODE: [id number] XR CHEST 2 V 22014 CLINICALHISTORY: R06.02, SHORTNESS OF BREATH. COMPARISON: NONE PA and lateral films of the chest demonstrate that heart size is normal. Lung kaur are clear. No evidence of pneumonia or congestive failure is seen. Regional skeletal structures demonstrate no acute abnormality. IMPRESSION: No evidence of pneumonia or congestive failure is seen. [id number] Reported and signed by: Kurt Ortega M.D. CC: Jn Barrios MD Technologist: Genevieve Tapia RT(R) Trnscrd Date/Time/By: 12/08/2019 (1111) : By: Juan Orig Print D/T: S: 12/08/2019 (1418)PAGE 1 Signed ElvtgsDYGZ-AzR-3 (COVID-19) by RT-PCR (HIGH RISK)2019-09-18 00:00:00* Test Item Value Reference Range Interpretation Comme nts SARS-CoV-2 INTERPRETATION (t est code = 83686) NEGATIVE SOURCE (test code = 35179) NOT SPECIFIED Chris F WiqalgIHCA-ZqR-9 (COVID-19) by RT-PCR (HIGH RISK)2019-09-18 00:00:00* Test Item Value Reference Range Interpretation Comme nts SARS-CoV-2 INTERPRETATION (t est code = 00315) NEGATIVE SOURCE (test code = 10785) NOT SPECIFIED Chris F FbfscrHSZS-DcR-7 (COVID-19) by RT-PCR (HIGH RISK)2019-09-18 00:00:00* Test Item Value Reference Range Interpretation Comme nts SARS-CoV-2 INTERPRETATION (t est code = 86508) NEGATIVE SOURCE (test code = 81174) NOT SPECIFIED Chris Rikki PmxtctBMPU-DqL-0 (COVID-19) by RT-PCR (HIGH RISK)2019-09-18 00:00:00* Test Item Value Reference Range Interpretation Comme nts SARS-CoV-2 INTERPRETATION (t est code = 37013) NEGATIVE SOURCE (test code = 30664) NOT SPECIFIED Chris Brandt KzxidfTZEM-GdI-5 (COVID-19) by RT-PCR (HIGH RISK)2019-09-18 00:00:00* Test Item Value Reference Range Interpretation Comme nts SARS-CoV-2 INTERPRETATION (t est code = 24894) NEGATIVE SOURCE (test code = 24760) NOT SPECIFIED Chris Brandt LstudgSQNN-XfQ-1 (COVID-19) by RT-PCR (HIGH RISK)2019-09-18 00:00:00* Test Item Value Reference Range Interpretation Comme nts SARS-CoV-2 INTERPRETATION (t est code = 61297) NEGATIVE SOURCE (test code = 84454) NOT SPECIFIED Chris Brandt BlmmqfECSL-TgV-2 (COVID-19) by RT-PCR (HIGH RISK)2019-09-18 00:00:00* Test Item Value Reference Range Interpretation Comme nts SARS-CoV-2 INTERPRETATION (t est code = 36682) NEGATIVE SOURCE (test code = 25363) NOT SPECIFIED SARS-CoV-2 (COVID-19) by RT-PCR (HIGH RISK)2019-09-18 00:00:00* Test Item Value Reference Range Interpretation Comme nts SARS-CoV-2 INTERPRETATION (t est code = 68238) NEGATIVE SOURCE (test code = 11834) NOT SPECIFIED SARS-CoV-2 (COVID-19) by RT-PCR (HIGH RISK)2019-09-18 00:00:00* Test Item Value Reference Range Interpretation Comme nts SARS-CoV-2 INTERPRETATION (t est code = 17812) NEGATIVE SOURCE (test code = 14534) NOT SPECIFIED Chris Brandt AustinCBC W/AUTO [id number] 00:00:00* Test Item Value Reference Range Interpretation [...] COUNT (test code = 1015) 223 K/UL Chris DohertyCOMPREHENSIVE METABOLIC [id number] 00:00:00* Test Item Value Reference Range Interpretation Comme nts GLUCOSE (test code = 2217) 83 MG/DL BUN (test code = 2208) 17 MG/DL CREATININE (test code = 2214) 0.96 MG/DL eGFR AMER. (test cod e = 74990) 80 ML/MIN/1.73 eGFR NON- AMER. (test code = 31163) 69 ML/MIN/1.73 CALC BUN/CREAT (test code = [...] ALT (test code = 2219) 15 U/L Chris DohertyCBC W/AUTO [id number] 00:00:00* Test Item Value Reference Range Interpretation [...] COUNT (test code = 1015) 223 K/UL Chris Brandt ChasCOMPREHENSIVE METABOLIC [id number] 00:00:00* Test Item Value Reference Range Interpretation Comme nts GLUCOSE (test code = 2217) 83 MG/DL BUN (test code = 2208) 17 MG/DL CREATININE (test code = 2214) 0.96 MG/DL eGFR AMER. (test cod e = 29993) 80 ML/MIN/1.73 eGFR NON- AMER. (test code = 36373) 69 ML/MIN/1.73 CALC BUN/CREAT (test code = [...] ALT (test code = 2219) 15 U/L Chris Brandt ChasCBC W/AUTO [id number] 00:00:00* Test Item Value Reference Range Interpretation [...] COUNT (test code = 1015) 223 K/UL Chris DohertyCOMPREHENSIVE METABOLIC [id number] 00:00:00* Test Item Value Reference Range Interpretation Comme nts GLUCOSE (test code = 2217) 83 MG/DL BUN (test code = 2208) 17 MG/DL CREATININE (test code = 2214) 0.96 MG/DL eGFR AMER. (test cod e = 45914) 80 ML/MIN/1.73 eGFR NON- AMER. (test code = 47767) 69 ML/MIN/1.73 CALC BUN/CREAT (test code = [...] ALT (test code = 2219) 15 U/L Chris DohertyCBC W/AUTO [id number] 00:00:00* Test Item Value Reference Range Interpretation [...] COUNT (test code = 1015) 223 K/UL Chris Brandt ChasCOMPREHENSIVE METABOLIC [id number] 00:00:00* Test Item Value Reference Range Interpretation Comme nts GLUCOSE (test code = 2217) 83 MG/DL BUN (test code = 2208) 17 MG/DL CREATININE (test code = 2214) 0.96 MG/DL eGFR AMER. (test cod e = 23192) 80 ML/MIN/1.73 eGFR NON- AMER. (test code = 93703) 69 ML/MIN/1.73 CALC BUN/CREAT (test code = [...] ALT (test code = 2219) 15 U/L Chris Brandt ChasCBC W/AUTO [id number] 00:00:00* Test Item Value Reference Range Interpretation [...] COUNT (test code = 1015) 223 K/UL Chris DohertyCOMPREHENSIVE METABOLIC [id number] 00:00:00* Test Item Value Reference Range Interpretation Comme nts GLUCOSE (test code = 2217) 83 MG/DL BUN (test code = 2208) 17 MG/DL CREATININE (test code = 2214) 0.96 MG/DL eGFR AMER. (test cod e = 46473) 80 ML/MIN/1.73 eGFR NON- AMER. (test code = 54022) 69 ML/MIN/1.73 CALC BUN/CREAT (test code = [...] ALT (test code = 2219) 15 U/L Chris Rikki ChasCBC W/AUTO [id number] 00:00:00* Test Item Value Reference Range Interpretation [...] COUNT (test code = 1015) 223 K/UL Chris Brandt ChasCOMPREHENSIVE METABOLIC [id number] 00:00:00* Test Item Value Reference Range Interpretation Comme nts GLUCOSE (test code = 2217) 83 MG/DL BUN (test code = 2208) 17 MG/DL CREATININE (test code = 2214) 0.96 MG/DL eGFR AMER. (test cod e = 60517) 80 ML/MIN/1.73 eGFR NON- AMER. (test code = 63812) 69 ML/MIN/1.73 CALC BUN/CREAT (test code = [...] ALT (test code = 2219) 15 U/L Chris Brandt ChasCBC W/AUTO [id number] 00:00:00* Test Item Value Reference Range Interpretation [...] code = 1015) 223 K/UL COMPREHENSIVE METABOLIC [id number] 00:00:00* Test Item Value Reference Range Interpretation Comme nts GLUCOSE (test code = 2217) 83 MG/DL BUN (test code = 2208) 17 MG/DL CREATININE (test code = 2214) 0.96 MG/DL eGFR AMER. (test cod e = 55572) 80 ML/MIN/1.73 eGFR NON- AMER. (test code = 47747) 69 ML/MIN/1.73 CALC BUN/CREAT (test code = [...] code = 2219) 15 U/L CBC W/AUTO [id number] 00:00:00* Test Item Value Reference Range Interpretation [...] code = 1015) 223 K/UL COMPREHENSIVE METABOLIC [id number] 00:00:00* Test Item Value Reference Range Interpretation Comme nts GLUCOSE (test code = 2217) 83 MG/DL BUN (test code = 2208) 17 MG/DL CREATININE (test code = 2214) 0.96 MG/DL eGFR AMER. (test cod e = 81598) 80 ML/MIN/1.73 eGFR NON- AMER. (test code = 69630) 69 ML/MIN/1.73 CALC BUN/CREAT (test code = [...] code = 2219) 15 U/L CBC W/AUTO [id number] 00:00:00* Test Item Value Reference Range Interpretation [...] COUNT (test code = 1015) 223 K/UL Chris DohertyCOMPREHENSIVE METABOLIC [id number] 00:00:00* Test Item Value Reference Range Interpretation Comme nts GLUCOSE (test code = 2217) 83 MG/DL BUN (test code = 2208) 17 MG/DL CREATININE (test code = 2214) 0.96 MG/DL eGFR AMER. (test cod e = 99245) 80 ML/MIN/1.73 eGFR NON- AMER. (test code = 38914) 69 ML/MIN/1.73 CALC BUN/CREAT (test code = [...] ALT (test code = 2219) 15 U/L Chris Doherty
[2024-03-20] MEDS ORDERED: AZITHROMYCIN 500 MG INJ IVPB ONE (10:32)
[2024-03-20] MEDS ORDERED: NA CHLORIDE 0.9% 250 ML ONE (10:32)
[2024-03-20] MEDS ORDERED: ACETAMINOPHEN 500 MG TAB ONE (10:32)
[2024-03-20 10:53] LABS: Absolute Eosinophils 0.1 K/uL (0-0.5); Absolute Monocytes 0.6 K/uL (0.1-1.3); Absolute Neutrophil 4.7 K/uL (1.8-8.0); Basophils % 0.3 % (0-1.3); Eosinophils % 0.8 % (0-4.4); Hematocrit 38.5 % (36.0-45.0); Hemoglobin 13.1 g/dL (12.0-15.0); Lymphocytes % 16.2 % (15.3-44.8); MCH 31.2 pg (27.0-35.0); MCHC 34.1 g/dL (32.0-36.0); MCV 91.4 fL (80-100); MPV 7.8 fL (7.6-11.3); Monocytes % 9.6 % (3.3-12.3); Neutrophils % 73.1 % (41.7-73.7); Platelets 194 thou/uL (152-406); RBC Red Blood Cell Count 4.22 M/uL (3.86-4.86); Red Cell Distribution Width 13.1 % (12.1-15.2)
[2024-03-20 11:00] LABS: PTT, Activated Partial Thromb 32.3 SECONDS (24.3-36.9); Protime INR 1.14
[2024-03-20 11:10] LABS: AST/SGOT 14 U/L (15-37); Albumin 3.2 g/dL (3.4-5.0); Albumin/Globulin Ratio 0.9 (1.1-1.8); Alkaline Phosphatase 73 U/L (45-117); Anion Gap 7.5 mEq/L (5.0-15.0); BUN Blood Urea Nitrogen 11 mg/dL (7-18); Bicarbonate 32 mEq/L (21-32); Bilirubin Total 0.5 mg/dL (0.2-1.0); Globulin 3.5 g/dL (2.3-3.5); Glomerular Filtration Rate 62 ml/min (=/>90); Glucose Level 120 mg/dL (74-106); Potassium 3.5 mEq/L (3.5-5.1); Protein, Total 6.7 g/dL (6.4-8.2); Sodium Level 139 mEq/L (136-145)
[2024-03-20 11:11] LABS: ALT/SGPT < 14 U/L (13-56)
[2024-03-20 11:17] LABS: SARS-CoV-2 Antigen CONTROL BLUE LINE VIS/BG OK; SARS-CoV-2 Antigen Rapid Res Negative (Negative)
[2024-03-20] MEDS ORDERED: NA CHLORIDE 0.9% 1,000 ML ONE ×3 (11:27→16:56)
--- NOTE | 2024-03-20 12:00 | RAD REPORT ---
EXAMINATION: CTA CHEST PE CLINICAL INDICATION: Shortness of breath TECHNIQUE: 100 cc 370 Isovue administered intravenously. This examination was performed according to an angiographic protocol with 3D post-processing. This involves 3D reconstructions, MIPs, volume rendered images and/or shaded surface rendering. One or more of the following dose reduction techniqu es were used: Automated exposure control, adjustment of the mA and/or kV according to patient size, and/or iterative reconstruction. Unless otherwise specified, incidental findings do not require dedic ated imaging follow-up. [id number]. COMPARISON: May 2023 FINDINGS: A pulmonary embolus is not seen. An aortic aneurysm not noted. No pleural effusion. No pericardial effusion. Mild lingular atelectasis. Otherwise lungs are clear. IMPRESSION: No evidence of a pulmonary embolism
--- NOTE | 2024-03-20 12:01 | RAD REPORT ---
Procedure: Chest Single View HISTORY: Shortness of breath COMPARISON: 2023 FINDINGS: Mild lingular atelectasis. The lungs appear clear of acute infiltrate. Lungs are mildly hyperaerated. No significant pleural effusion noted. The heart is normal size.
[2024-03-20] MEDS ORDERED: LORazepam 2 MG/ML VIAL ONE (12:04)
--- NOTE | 2024-03-20 12:50 | EDPHYS ---
Physician Documentation [facility] Name: Roxanne Duran Age: 53 yrs Sex: Female : 1970 Arrival Date: 03/20/2024 Time: 10:06 Bed 2 Private MD: ED Physician Nestor Navas HPI: 03/20 10:12 This 53 yrs old Female presents to ER via Unassigned with complaints of shortness of ms3 breath. 10:12 Roxanne Duran is a 53 year old female with a history of Chronic Obstructive Pulmonary ms3 Disease (COPD) and DVTs in her leg. She presents to the Emergency Department with worsening shortness of breath for the past two days. The patient reports being on home oxygen therapy, initially recorded by EMS at 90% on two liters via nasal cannula. Her oxygen saturation has since increased to 97-98%. She has also experienced fever, vomiting, and diarrhea since last night. The patient is on blood thinners but expresses concern about bruising, leading to inconsistent use.. 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 - Infectious Disease History:: Denies. - Social history:: Smoking status: Patient reports the use of cigarette tobacco products. ROS: 10:12 Constitutional: Negative for fever, and chills. Cardiovascular: Negative for chest ms3 pain, and palpitations. Abdomen/GI: Negative for abdominal pain, nausea, vomiting, diarrhea, and constipation, MS/Extremity: Negative for injury and deformity, Skin: Negative for injury, rash, and discoloration, Neuro: Negative for headache, weakness, numbness, tingling. 10:12 Respiratory: Positive for shortness of breath, Exam: 10:12 Constitutional: This is a well developed, well nourished patient who is awake, alert, ms3 and in no acute distress. 10:12 Respiratory: Lungs have equal breath sounds bilaterally, clear to auscultation and percussion. No rales, rhonchi or wheezes noted. No increased work of breathing, no retractions or nasal flaring. Abdomen/GI: Soft, non-tender, with normal bowel sounds. No distension or tympany. No guarding or rebound. No evidence of tenderness throughout. Skin: Warm, dry with normal turgor. Normal color with no rashes, no lesions, and no evidence of cellulitis. 10:12 Cardiovascular: Rate: tachycardic, Rhythm: regular, Pulses: no pulse deficits are appreciated, Heart sounds: normal, normal S1and S2, 11:19 ECG was reviewed by the Attending Physician. ms3 Vital Signs: 10:14 BP 110 / 74; Pulse 120; Resp 18; Temp 101.3(O); Pulse Ox 98% on 2 lpm NC; ld1 10:44 BP 148 / 78; Temp 103(O); ap3 11:32 BP 104 / 60; Pulse 124; Temp 100.8(O); Pulse Ox 95% on 3 lpm NC; ap3 12:06 BP 123 / 106; Pulse 112; Resp 28; Pulse Ox 93% on 3 lpm NC; ld1 12:39 BP 101 / 61; Pulse 129; Resp 38; Pulse Ox 91% on 3 lpm NC; ld1 19:22 BP 107 / 64; Pulse 96; Resp 33; Pulse Ox 98% ; vc1 MDM: 10:10 Medical Screening Exam initiated ms3 10:12 Differential diagnosis: Chronic Obstructive Pulmonary Disease pneumonia, Flu vs COVID. ms3 12:50 Data reviewed: vital signs, nurses notes, lab test result(s), EKG, radiologic studies, ms3 and as a result, I will admit patient. Consideration of Admission/Observation Patient was admitted/placed on observation. Management of patient was discussed with the following: Hospitalist: Edwin Mata NP, with Dr Barnes. I considered the following discharge prescriptions or medication management in the emergency department Medications were administered in the Emergency Department. See MAR. Independent interpretation of the following test(s) in the Emergency Department EKG: See my EKG interpretation above. Care significantly affected by the following chronic conditions: Diabetes, Hypertension, Chronic Obstructive Pulmonary Disease. Counseling: I had a detailed discussion with the patient and/or guardian regarding the historical points, exam findings, and any diagnostic results supporting the discharge/admit diagnosis, lab results, radiology results, the need for further work-up and treatment in the hospital. ED course: Discussed necessity for admission with patient. Patient understands agrees with plan. All questions were answered.. 03/20 10:11 Order name: Blood Culture Adult (2) ms3 03/20 10:11 Order name: CBC with Diff; Complete Time: 11:12 ms3 03/20 10:11 Order name: CMP; Complete Time: 11:12 ms3 03/20 10:11 Order name: Lactate w/ 2H reflex if indic.; Complete Time: 11:18 ms3 03/20 10:11 Order name: Protime (+inr); Complete Time: 11:12 ms3 03/20 10:11 Order name: Ptt, Activated; Complete Time: 11:12 ms3 03/20 10:11 Order name: Urinalysis w/ reflexes; Complete Time: 13:37 ms3 03/20 10:11 Order name: Flu; Complete Time: 11:18 ms3 03/20 10:11 Order name: SARS RAPID; Complete Time: 11:18 ms3 03/20 10:11 Order name: Chest Single View XRAY; Complete Time: 12:07 03/20 10:12 Order name: CT Chest For PE Angio; Complete Time: 12:07 ms3 03/20 10:11 Order name: Accucheck; Complete Time: 13:05 ms3 03/20 10:11 Order name: Cardiac monitoring; Complete Time: 11:08 03/20 10:11 Order name: EKG - Nurse/Tech; Complete Time: 11:08 ms03/20 10:11 Order name: IV Saline Lock - Large Bore; Complete Time: 10:46 03/20 10:11 Order name: Labs collected and sent; Complete Time: 10:46 03/20 10:11 Order name: O2 Per Protocol; Complete Time: 10:30 ms03/20 10:11 Order name: O2 Sat Monitoring; Complete Time: 10:30 03/20 10:11 Order name: Vital Signs; Complete Time: 10:46 ms3 EC:19 Rate is 110 beats/min. Rhythm is regular. QRS [place] is Normal. NH interval is normal. ms3 QRS interval is normal. Clinical impression: Sinus tachycardia. Interpreted by me. Reviewed by me. Administered Medications: 10:46 Drug: Acetaminophen PO 1000 mg PO once Route: PO; ap3 11:33 Follow up: Response: No adverse reaction; Temperature is decreased ap3 11:41 Follow up: Response: No adverse reaction ld1 10:46 Drug: AZITHromycin IVPB 500 mg IVPB once over 1 hrs; (mix in 250 mL NS) Route: IVPB; ap3 Infused Over: 1 hrs; Site: right antecubital; 11:41 Follow up: Response: No adverse reaction; IV Status: Completed infusion; IV Intake: ld1 250ml 11:33 Drug: NS 0.9% IV 1000 ml IV at 1000 ml once; to be given as a bolus over 60 minutes ap3 Route: IV; Rate: 1000 ml; Site: left antecubital; 11:41 Follow up: Response: No adverse reaction ld1 13:35 Follow up: IV Status: Completed infusion; IV Intake: 1000ml ld1 12:09 Drug: Ativan IVP 0.5 mg IVP once Route: IVP; Site: right antecubital; ld1 13:35 Follow up: Response: No adverse reaction ld1 13:34 Drug: Albuterol Inhalation 2.5 mg Inhalation every 20 minutes x3 Route: Inhalation; ld1 13:35 Drug: MethylPrednisoLONE IVP 125 mg IVP once Route: IVP; Site: right antecubital; ld1 13:51 Drug: Albuterol Inhalation 2.5 mg Inhalation every 20 minutes x3 Route: Inhalation; ld1 Disposition Summary: 03/20/24 12:50 Hospitalization Ordered Notes: Hospitalization Status: Inpatient Admission ms3 Provider: George Barnes ms3 Condition: Stable ms3 Problem: new ms3 Symptoms: are unchanged ms3 Location: Telemetry/MedSurg (observation)(03/20/24 19:14) Bed/Room Type: Standard(03/20/24 19:14) Room Assignment: 224(03/20/24 19:14) Diagnosis - COPD/ Chronic obstructive pulmonary disease with (acute) exacerbation ms3 - Tachycardia, unspecified ms3 - Tachypnea, not elsewhere classified ms3 - Fever, unspecified ms3 Forms: - Medication Reconciliation Form ms3 - SBAR form ms3 - Leadership Thank You Letter ms3 Signatures: Dispatcher [employer] Edwin Garcia, [employer] SALES MANAGER-C [employer] SALES MANAGER-Cla1 Genevieve Copeland RN RN ap3 Eloise, Nestor, DO DO ms3 Milly Navas, RN RN ld1 Mary Olmos, RN RN kb3 Mary Desir Corrections: (The following items were deleted from the chart) 10:11 10:11 BLOOD CULTURE*+BA.LAB.BRZ ordered. EDMS EDMS 10:11 10:11 CBC+H.LAB.BRZ ordered. EDMS EDMS 10:11 10:11 COMPREHENSIVE METABOLIC PANEL+C.LAB.BRZ ordered. EDMS EDMS 10:11 10:11 LACTATE+C.LAB.BRZ ordered. EDMS EDMS 10:11 10:11 PROTIME (+INR)+COAG.LAB.BRZ ordered. EDMS EDMS 10:11 10:11 PTT, ACTIVATED+COAG.LAB.BRZ ordered. EDMS EDMS 10:11 10:11 Urinalysis+U.LAB.BRZ ordered. EDMS EDMS 10:11 10:11 Chest Single View+RAD.RAD.BRZ ordered. EDMS EDMS 10:11 10:11 Influenza Screen (A \T\ B)+BA.LAB.BRZ ordered. EDMS EDMS 10:11 10:11 SARS-COV-2 Antigen Rapid+I.LAB.BRZ ordered. EDMS EDMS 14:26 12:50 Telemetry/MedSurg (Inpatient) ms3 kb3 14:26 12:50 ms3 kb3 19:14 12:50 Standard ms3 hw 19:14 14:26 BR ER HOLD kb3 hw 19:14 14:26 ERHOLD- kb3 hw
--- NOTE | 2024-03-20 12:50 | ER ---
Nurse's Notes [facility] Name: Roxanne Duran Age: 53 yrs Sex: Female : 1970 Arrival Date: 03/20/2024 Time: 10:06 Bed 2 Private MD: Diagnosis: COPD/ Chronic obstructive pulmonary disease with (acute) exacerbation;Tachycardia, unspecified;Tachypnea, not elsewhere classified;Fever, unspecified Presentation: 03/20 10:14 Chief complaint: EMS states: toned out to patient home for SOB and anxiety. Pt presents ld1 febrile 101.3, N/V, SOB. Coronavirus screen: At this time, the client does not indicate any symptoms associated with coronavirus-19. Ebola Screen: No symptoms or risks identified at this time. Risk Assessment: Do you want to hurt yourself or someone else? Patient reports no desire to harm self or others. Onset of symptoms was March 20, 2024. Care prior to arrival: Medication(s) given: Albuterol Neb x 1, Atrovent Neb x 1, zofran 4 mg. 10:14 Acuity: SHYLA 3 ld1 10:14 Method Of Arrival: EMS: [facility] ld1 10:45 Initial Sepsis Screen: Does the patient meet any 2 criteria? Temp <36.0*C (96.8*F)) or ap3 > 38.3*C (100.9*F). HR > 90 bpm. Yes Does the patient have a suspected source of infection? No. Patient's initial sepsis screen is negative. 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 - Infectious Disease History:: Denies. - Social history:: Smoking status: Patient reports the use of cigarette tobacco products. Screenin:45 Abuse screen: Denies threats or abuse. Nutritional screening: No deficits noted. ap3 Tuberculosis screening: No symptoms or risk factors identified. 12:06 [facility] ED Fall Risk Assessment (Adult) History of falling in the last 3 months, ld1 including since admission No falls in past 3 months (0 pts) Confusion or Disorientation No (0 pts) Intoxicated or Sedated No (0 pts) Impaired Gait No (0 pts) Mobility Assist Device Used No (0 pt) Altered Elimination No (0 pt) Score/Fall Risk Level 0 - 2 = Low Risk Oriented to surroundings, Hourly rounding (assess needs \T\ fall precautionary measures) done. 12:06 [facility] ED Fall Risk Assessment (Adult) Score/Fall Risk Level 0 - 2 = Low Risk. ld1 Assessment: 12:06 Reassessment: Pt c/o anxiety. Notified ERP. See MAR for orders. General: Appears in no ld1 apparent distress. comfortable, Behavior is cooperative, anxious. Pain: Denies pain. Neuro: Level of Consciousness is awake, alert, obeys commands, Oriented to person, place, time, situation. Cardiovascular: Capillary refill < 3 seconds Patient's skin is warm and dry. Rhythm is sinus tachycardia. Respiratory: Airway is patent Respiratory effort is even, labored. Vital Signs: 10:14 BP 110 / 74; Pulse 120; Resp 18; Temp 101.3(O); Pulse Ox 98% on 2 lpm NC; ld1 10:44 BP 148 / 78; Temp 103(O); ap3 11:32 BP 104 / 60; Pulse 124; Temp 100.8(O); Pulse Ox 95% on 3 lpm NC; ap3 12:06 BP 123 / 106; Pulse 112; Resp 28; Pulse Ox 93% on 3 lpm NC; ld1 12:39 BP 101 / 61; Pulse 129; Resp 38; Pulse Ox 91% on 3 lpm NC; ld1 19:22 BP 107 / 64; Pulse 96; Resp 33; Pulse Ox 98% ; vc1 ED Course: 10:10 Patient arrived in ED. ms3 10:15 Triage completed. ld1 10:15 Nestor Navas DO is Attending Physician. ms3 10:30 Initial lab(s) drawn, by ar, sent to lab. First set of blood cultures drawn by me. ap3 10:38 Second set of blood cultures drawn by me. ap3 10:44 Inserted saline lock: 22 gauge in right antecubital area, using aseptic technique. ap3 Blood collected. Flushed with 10 mL NS. 10:46 Chest Single View XRAY In Process Unspecified. EDMS 10:46 SARS RAPID Sent. ap3 10:46 Flu Sent. ap3 10:46 Arm band placed on right wrist. ap3 10:54 EKG done, by ED staff, reviewed by Nestor Navas DO. hb 11:33 Genevieve Copeland, RN is Primary Nurse. ap3 11:51 CT Chest For PE Angio In Process Unspecified. EDMS 12:08 No provider procedures requiring assistance completed. ld1 12:08 Patient has correct armband on for positive identification. Placed in gown. Bed in low ld1 position. Call light in reach. Side rails up X2. Pulse ox on. NIBP on. Door closed. Noise minimized. 12:49 George Barnes MD is Hospitalizing Provider. ms3 15:40 Patient admitted, IV remains in place. ap3 15:40 Provided Education on: need for admission. ap3 15:50 ABG drawn. ph 7.276 pco2 58.5, pO 83.1, HCO3 26.4. jp4 15:57 O2 via Patient placed on bipap at 1557, 12/6, 60% with rate of 24. jp4 Administered Medications: 10:46 Drug: Acetaminophen PO 1000 mg PO once Route: PO; ap3 11:33 Follow up: Response: No adverse reaction; Temperature is decreased ap3 11:41 Follow up: Response: No adverse reaction ld1 10:46 Drug: AZITHromycin IVPB 500 mg IVPB once over 1 hrs; (mix in 250 mL NS) Route: IVPB; ap3 Infused Over: 1 hrs; Site: right antecubital; 11:41 Follow up: Response: No adverse reaction; IV Status: Completed infusion; IV Intake: ld1 250ml 11:33 Drug: NS 0.9% IV 1000 ml IV at 1000 ml once; to be given as a bolus over 60 minutes ap3 Route: IV; Rate: 1000 ml; Site: left antecubital; 11:41 Follow up: Response: No adverse reaction ld1 13:35 Follow up: IV Status: Completed infusion; IV Intake: 1000ml ld1 12:09 Drug: Ativan IVP 0.5 mg IVP once Route: IVP; Site: right antecubital; ld1 13:35 Follow up: Response: No adverse reaction ld1 13:34 Drug: Albuterol Inhalation 2.5 mg Inhalation every 20 minutes x3 Route: Inhalation; ld1 13:35 Drug: MethylPrednisoLONE IVP 125 mg IVP once Route: IVP; Site: right antecubital; ld1 13:51 Drug: Albuterol Inhalation 2.5 mg Inhalation every 20 minutes x3 Route: Inhalation; ld1 Medication: 12:06 VIS not applicable for this client. ld1 Intake: 11:41 IV: 250ml; Total: 250ml. ld1 13:35 IV: 1000ml; Total: 1250ml. ld1 Outcome: 12:50 Decision to Hospitalize by Provider. ms3 15:40 Admitted to ER Hold. Please see [facility] for further documentation. ap3 15:40 Condition: good 15:40 Discharge instructions given to patient, Instructed on the need for admit, 21:39 Patient left the ED. vc1 Signatures: Dispatcher [employer] EDMS Earlene Moore RN RN Genevieve Copeland RN RN ap3 Nestor Navas, DO ms3 Milly Navas RN RN ld1 Yolanda Gongora RN RN vc1 Jake Simmnos RN RN jp4
[2024-03-20 13:25] LABS: Sqamous Epithelial <5 /HPF (None Seen); Urine Bacteria <20 /HPF (<20); Urine Bilirubin NEGATIVE (Negative); Urine Blood Negative (Negative); Urine Clarity Clear (Clear); Urine Color Yellow (Yellow); Urine Culture Reflex Order NOT NEEDED; Urine Glucose NEGATIVE (Negative); Urine Ketones NEGATIVE (Negative); Urine Microscopic Reflex YN ORDER UMIC; Urine Mucus Slight /HPF (None Seen); Urine Nitrite NEGATIVE (Negative); Urine Protein 1+ (Negative); Urine RBC <5 /HPF (None Seen); Urine Urobilinogen Normal (Normal); Urine WBC <5 /HPF (<5)
[2024-03-20] MEDS ORDERED: ALBUTEROL 2.5 MG/3 ML NEB SOL ONE (13:28)
[2024-03-20] MEDS ORDERED: METHYLPREDNISOLONE 125 MG INJ ONE (13:28)
[2024-03-20 13:32] LABS: Specific Gravity > 1.030 (1.005-1.030)
[2024-03-20] MEDS: NA CHLORIDE 0.9% 1,000 ML IV SCH (15:00)
[2024-03-20] MEDS ORDERED: NA CHLORIDE 0.9% 500 ML ONE (15:07)
[2024-03-20] MEDS: NA CHLORIDE 0.9% 500 ML IV ONE (15:13)
--- NOTE | 2024-03-20 15:31 | P.HP ---
Certification for Inpatient Patient admitted to: Inpatient With expected LOS: >2 Midnights Patient will require the following post-hospital care: None Practitioner: I am a practitioner with admitting privileges, knowledge of patient current condition, hospital course, and medical plan of care. Services: Services provided to patient in accordance with Admission requirements found in Title 42 Section 412.3 of the Code of Federal Regulations Patient History Date of Service: 03/20/24 Reason for admission: COPD exacerbation, gastroenteritis History of Present Illness: 53-year-old female with history of COPD on chronic home O2 and chronic steroids, DVT/PE on chronic anticoagulation but not very compliant, hypertension presents to the emergency department with chief complaint of shortness of breath, nausea vomiting and diarrhea as well as low-grade fevers. She reports that her breathing has been bad for about a week now but worse the last 2 days, her son was also sick about 3 days ago with a stomach bug, she also recently developed nausea, vomiting and diarrhea. Her abdomen is nontender on exam, her labs are significant for a normal white b lood cell count normal LFTs lactate of 1.2 negative for COVID and influenza, no UTI CTA of the chest was performed given patient's tachycardia, shortness of breath and previous PE/DVT. There is no evidence of a PE or other infectious findings in the lungs. Patient was given IV fluids, nebulizer treatments and steroids in the ED, will be admitted for further management of his COPD exacerbation with suspected gastroenteritis. Allergies No Known Drug Allergies Allergy (Verified 11/17/21 22:34) Unknown Home Medications: Fluticasone/Umeclidin/Vilanter [Trelegy Ellipta 100-62.5-25] 1 puff PO DAILY 02/02/21 Albuterol Neb [Proventil 0.083% Neb Soln] 2.5 mg NEB Q6HP PRN #120 amp 02/06/21 Albuterol Sulfate [Proair Hfa] 2 puff IH Q4H 07/14/21 Ipratropium Neb [Atrovent*] 0.5 mg NEB [id number] PRN 07/14/21 Rivaroxaban [Xarelto] 10 mg PO DAILY 11/17/21 Fluoxetine HCl [Prozac] 60 mg PO DAILY 12/22/22 Montelukast [Singulair*] 1 tab PO DAILY 11/04/23 Albuterol Neb [Proventil 0.083% Neb Soln] 2.5 mg NEB Q6HP PRN #60 amp 12/23/22 Benzonatate [Tessalon Perle*] 200 mg PO TID PRN #30 cap 12/23/22 Guaifen W/Codeine Syrup [ROBITUSSIN A-C Syrup*] 10 ml PO BID PRN #100 ml 12/23/22 Hydrocodone 5/APAP 325 [[place] 5/325*] 1 tab PO Q6H PRN #30 tab 12/23/22 Ipratropium Neb [Atrovent*] 0.5 mg NEB [id number] #60 amp 12/23/22 Roflumilast [Daliresp*] 500 mcg PO DAILY #30 12/26/22 guaiFENesin [Robitussin 100MG/5ML*] 5 ml PO QID PRN #100 ml 12/26/22 levoFLOXacin [Levaquin*] 750 mg PO DAILY #5 tab 12/26/22 predniSONE [Prednisone*] 20 mg PO DAILY #7 tab 12/26/22 - Past Medical/Surgical History Has patient received pneumonia vaccine in the past: Yes Diabetic: No -: COPD-home O2/steroids -: ANXIETY -: DVT/PE -: HYSTERECTOMY -: cataract surgery R eye Psychosocial/ Personal History: Patient lives at home with her children is currently unemployed - Family History Mother -: Lung disease, Other (see notes) Notes: OXYGEN DEPENDENT, SMOKER. depresssion Father -: Lung disease, GI disease, Kidney disease Notes: SMOKER - Social History Smoking Status: Former smoker Alcohol use: No CD- Drugs: No Caffeine use: Yes Place of Residence: Home Review of Systems Respiratory: Shortness of Breath Gastrointestinal: Nausea, Vomiting, Diarrhea Physical Examination - Physical Exam General: Alert, In no apparent distress, Oriented x3 HEENT: Atraumatic, PERRLA, EOMI Neck: Supple, 2+ carotid pulse no bruit, No LAD Respiratory: Diminished, Expiratory wheezes Cardiovascular: Regular rate/rhythm, Normal S1 S2 Gastrointestinal: Normal bowel sounds, No tenderness Musculoskeletal: No tenderness Integumentary: No rashes Neurological: Normal speech, Normal strength at 5/5 x4 extr, Normal affect - Studies Laboratory Data (last 24 hrs) 03/20/24 03/20/24 03/20/24 10:38 10:38 10:38 WBC 6.40 Hgb 13.1 Hct 38.5 Plt Count 194 PT 12.0 INR 1.14 APTT 32.3 Sodium 139 Potassium 3.5 BUN 11 Creatinine 1.07 H Glucose 120 H Total Bilirubin 0.5 AST 14 L ALT < 14 Alkaline Phosphatase 73 Microbiology Data (last 24 hrs): 03/20/24 10:38 Nasopharnyx Influenza Type A Antigen Screen - Final 03/20/24 10:38 Nasopharnyx Influenza Type B Antigen Screen - Final Assessment and Plan - Plan Assessment: COPD exacerbationon chronic home O2/chronic steroids Suspected gastroenteritis with nausea/vomiting/diarrhea History of DVT/PE on chronic anticoagulation-noncompliant Hypertension Plan: COPD exacerbationon chronic home O2/chronic steroids History of DVT/PE on chronic anticoagulation-noncompliant Will obtain ABG CT PE negative for PE or other infectious findings in the lungs Given severe COPD and low-grade fevers will cover with levofloxacin Pulmonology to be consulted Will give increased dose of steroids, scheduled nebs, Dulera in place of Trelegy until she can bring it up. May require BiPAP Continue Xarelto, patient has only been taking once or twice a week as she does not like bruising that she gets when she takes it Counseled importance of compliance, no PE currently Suspected gastroenteritis with nausea/vomiting/diarrhea Supportive care, IV fluids Hypertension BP soft, hold BP meds at this time DVT PPX:Continue xarelto Code status: Full Discharge Plan: Home Plan to discharge in: 48 Hours - Advance Directives Does patient have a Living Will: No Does patient have a Durable POA for Healthcare: No - Code Status/Comfort Care Code Status Assessed: Yes (Full code) Critical Care: No Time Spent Managing Pts Care (In Minutes): 67
[2024-03-20] MEDS: predniSONE 20 MG TAB PO SCH (22:52)
[2024-03-20] MEDS: DULERA 200/5 (MOMETASONE/FORMOTEROL) INHALER IH SCH (22:52)
[2024-03-21] MEDS: METHYLPREDNISOLONE 40 MG INJ ONE (00:03)
[2024-03-21] MEDS: METHYLPREDNISOLONE 40 MG INJ IV SCH (00:03)
[2024-03-21 00:04] LABS: Blood O2 Saturation 98.2 % (92-98.5)
[2024-03-21 00:05] LABS: Arterial Blood Carboxyhemoglob 0.6 % (0-1.5); Blood Gas Oxyhemoglobin 95.6 % (94-97); Blood Gas THB 13.4 g/dl (12-18)
[2024-03-21] MEDS: FUROSEMIDE 40 MG/4 ML VIAL IV ONE (00:11)
[2024-03-21] MEDS: LORazepam 2 MG/ML VIAL ONE (00:31)
[2024-03-21] MEDS: LORazepam 2 MG/ML VIAL IV ONE ×2 (00:38→05:15)
[2024-03-21] MEDS: ALBUTEROL 2.5 MG/3 ML NEB SOL NEB SCH (00:40)
[2024-03-21] MEDS: IPRATROPIUM BROM 0.5MG/2.5ML NEB SCH (00:40)
[2024-03-21 01:49] LABS: Arterial Blood Carboxyhemoglob 0.8 % (0-1.5); Blood Gas Oxyhemoglobin 92.9 % (94-97); Blood O2 Saturation 95.5 % (92-98.5)
[2024-03-21 01:50] LABS: Blood Gas THB 13.4 g/dl (12-18)
[2024-03-21] MEDS: NA CHLORIDE 0.9% 1,000 ML IV SCH (02:46)
[2024-03-21] MEDS: ACETAMINOPHEN 325 MG TABLET PO PRN (04:27)
--- NOTE | 2024-03-21 05:05 | RAD REPORT ---
PROCEDURE: XR Chest, 1 View CLINICAL INDICATION: The patient is 53 years old and is Female; Shortness of breath. TECHNIQUE: Frontal view of the chest. COMPARISON: None. FINDINGS: LUNGS: No discrete focal consolidation. PLEURAL SPACE: No appreciable pleural effusion or pneumothorax. MEDIASTINUM: Unremarkable cardiomediastinal contour. BONES/JOINTS: No acute osseous abnormality. IMPRESSION: No acute cardiopulmonary abnormality. Electronically signed by: Juan Ramon Mayer MD 03/21/2024 02:40 AM [facility] Due to temporary technical issues with the PACS/Angle reporting system, reports are being ernestine d by the in-house radiologist without review as a courtesy to ensure prompt reporting the interpreting radiologist is fully responsible for the content of the report. Transcribed Date/Time: 03/21/2024 5:05 AM
[2024-03-21 06:03] LABS: Absolute Lymphocytes (CBC) 0.5 K/uL (0.7-4.9); Absolute Monocytes 0.1 K/uL (0.1-1.3); Absolute Neutrophil 4.7 K/uL (1.8-8.0); Basophils % 0.1 % (0-1.3); Hematocrit 37.1 % (36.0-45.0); Hemoglobin 12.5 g/dL (12.0-15.0); Lymphocytes % 9.7 % (15.3-44.8); MCHC 33.6 g/dL (32.0-36.0); MCV 92.3 fL (80-100); MPV 7.5 fL (7.6-11.3); Monocytes % 2.2 % (3.3-12.3); Nucleated Red Blood Cells % 0.1 % (0-0); Platelets 172 thou/uL (152-406); RBC Red Blood Cell Count 4.02 M/uL (3.86-4.86); Red Cell Distribution Width 13.2 % (12.1-15.2)
[2024-03-21 06:27] LABS: Thyroid Stimulating Hormone 0.329 uIU/mL (0.358-3.740)
[2024-03-21] MEDS: RIVAROXABAN 10 MG TABLET PO SCH (08:08)
[2024-03-21 08:21] LABS: Blood Morphology Comment NOT SEEN (NOT SEEN); Platelet Estimate ADEQ; Platelets Clumped FEW; White Blood Cell Scan OK (OK)
[2024-03-21] MEDS: Levofloxacin 750mg IV 750 MG/150 ML BAG IV SCH (09:00)
[2024-03-21] MEDS: MORPHINE 2 MG/ML SYR IV PRN (09:15)
[2024-03-21] MEDS: Levofloxacin 250mg IV 750 MG/150 ML BAG IV SCH (09:33)
[2024-03-21] MEDS: HYDROCODONE/APAP 5/325 MG TAB PO PRN (11:48)
--- NOTE | 2024-03-21 12:53 | RAD REPORT ---
EXAMINATION: XR Ankle Left 3 View CLINICAL INDICATION: Female, 53 years old. [facility] ankle pain TECHNIQUE: 3 view radiographs of the left ankle were obtained. COMPARISON: No prior exam. FINDINGS: No bone or joint abnormality seen. Moderate calcaneal spur. Soft tissue swelling about the ankle. IMPRESSION: No acute osseous abnormalities. Soft tissue swelling about the ankle.
[2024-03-21] MEDS: LORazepam 2 MG/ML VIAL IV PRN (13:32)
--- NOTE | 2024-03-21 14:45 | P.PN ---
Date of Service: 03/21/24 Subjective: Developed worsening respiratory distress overnight requiring BiPAP and transferred to ICU Tolerating BiPAP overnight ROS: 10 point ROS as noted above, otherwise negative Physical exam GEN: Alert, oriented, NAD HEENT: Normal conjunctiva, sclera anicteric CV: Regular rate and rhythm, no edema Pulm: Diminished breath sounds bilaterally with expiratory wheezing on BiPAP ABD: Soft, nontender, nondistended MSK: No joint tenderness Integumentary: No rashes Neuro: Normal speech, normal affect Vitals reviewed Assessment: COPD exacerbationon chronic home O2/chronic steroids Suspected gastroenteritis with nausea/vomiting/diarrhea 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 Continue BiPAP, wean as tolerated Continue Xarelto, patient has only been taking once or twice a week as she does not like bruising that she gets when she takes it Counseled importance of compliance, no PE currently Suspected gastroenteritis with nausea/vomiting/diarrhea Supportive care, IV fluids Hypertension BP soft, hold BP meds at this time DVT PPX:Continue xarelto Code status: Full Discharge Plan: Home Plan to discharge in: 48 Hours Dispo: Time Spent Managing Pts Care (In Minutes): 35
[2024-03-21] MEDS: methocarbamoL 500 MG TAB PO SCH (17:31)
[2024-03-21] MEDS: DOXEPIN HCL 10 MG CAP PO SCH (20:21)
[2024-03-22 05:48] LABS: Absolute Lymphocytes (CBC) 0.5 K/uL (0.7-4.9); Absolute Monocytes 0.3 K/uL (0.1-1.3); Absolute Neutrophil 5.4 K/uL (1.8-8.0); Hematocrit 35.2 % (36.0-45.0); Hemoglobin 11.9 g/dL (12.0-15.0); Lymphocytes % 8.6 % (15.3-44.8); MCH 31.2 pg (27.0-35.0); MCHC 33.8 g/dL (32.0-36.0); MCV 92.3 fL (80-100); MPV 7.8 fL (7.6-11.3); Monocytes % 4.7 % (3.3-12.3); Neutrophils % 86.7 % (41.7-73.7); Nucleated Red Blood Cells % 0.1 % (0-0); Platelets 165 thou/uL (152-406); RBC Red Blood Cell Count 3.82 M/uL (3.86-4.86); Red Cell Distribution Width 13.1 % (12.1-15.2)
[2024-03-22 06:05] LABS: Anion Gap 4.7 mEq/L (5.0-15.0); Potassium 4.7 mEq/L (3.5-5.1)
[2024-03-22] MEDS: SPIRONOLACTONE 25 MG TABLET PO SCH (08:05)
[2024-03-22] MEDS: ALPRAZOLAM 0.5 MG TABLET PO PRN (08:05)
[2024-03-22] MEDS: GUAIFENESIN 600 MG SA TAB PO SCH (08:06)
[2024-03-22] MEDS: NA CHLORIDE 0.9% 1,000 ML IV SCH (08:07)
--- NOTE | 2024-03-22 15:18 | P.PN ---
Date of Service: 03/22/24 Subjective: Tolerating BiPAP/nasal cannula No acute events overnight Complained of right ankle pain yesterday but this is improving Quite anxious ROS: 10 point ROS as noted above, otherwise negative Physical exam GEN: Alert, oriented, NAD HEENT: Normal conjunctiva, sclera anicteric CV: Regular rate and rhythm, no edema Pulm: Diminished breath sounds bilaterally with expiratory wheezing on nasal cannula ABD: Soft, nontender, nondistended MSK: No joint tenderness Integumentary: No rashes Neuro: Normal speech, normal affect Vitals reviewed Assessment: COPD exacerbationon chronic home O2/chronic steroids Suspected gastroenteritis with nausea/vomiting/diarrhea 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 Continue BiPAP, wean as tolerated Continue Xarelto, patient has only been taking once or twice a week as she does not like bruising that she gets when she takes it Counseled importance of compliance, no PE currently Also with significant anxiety, started on as needed Xanax Suspected gastroenteritis with nausea/vomiting/diarrhea Supportive care, IV fluids Hypertension BP soft, hold BP meds at this time DVT PPX:Continue xarelto Code status: Full Discharge Plan: Home Plan to discharge in: 48 Hours Dispo: Time Spent Managing Pts Care (In Minutes): 35
--- NOTE | 2024-03-22 15:27 | P.CNS ---
Date of Consult: 03/22/24 Reason for Consult: COPD exacerbation Chief Complaint: COPD exacerbation, gastroenteritis History of Present Illness: Is 53 years of age with a history of COPD home O2 steroids to the emergency room with shortness of breath nausea vomiting and diarrhea worse of the past 2 days currently on BiPAP feeling a little better pliant with her inhaler which is Trelegy Allergies No Known Drug Allergies Allergy (Verified 11/17/21 22:34) Unknown Home Medications: Albuterol Inhaler [Ventolin Inhaler] 2 puff IH Q6H PRN 03/21/24 Doxepin HCl [Sinequan] 10 mg PO BEDTIME 03/21/24 Prednisone [Sterapred Ds] 10 mg PO BEDTIME 03/21/24 Spironolactone 25 mg PO DAILY 03/21/24 methocarbamoL [Methocarbamol] 500 mg PO BID 6AM 6PM 03/21/24 - Past Medical/Surgical History Diabetic: No -: COPD-home O2/steroids -: ANXIETY -: DVT/PE -: HYSTERECTOMY -: cataract surgery R eye Psychosocial/ Personal History: Patient lives at home with her children is currently unemployed - Family History Mother Medical History: Lung disease, Other (see notes) Notes: OXYGEN DEPENDENT, SMOKER. depresssion Father Medical History: Lung disease, GI disease, Kidney disease Notes: SMOKER - Social History Smoking Status: Former smoker Alcohol use: No CD- Drugs: No Caffeine use: Yes Place of Residence: Home Review of Systems 10-point ROS is otherwise unremarkable General: Weakness Respiratory: Shortness of Breath Physical Examination Temp Pulse Resp BP Pulse Ox 98.0 F 95 H 36 H 151/80 H 95 03/22/24 08:00 03/22/24 14:00 03/22/24 14:00 03/22/24 14:00 03/22/24 14:00 General: Alert, Oriented x3, Mild distress Respiratory: Clear to auscultation bilaterally, Normal air movement Cardiovascular: No edema, Regular rate/rhythm, Normal S1 S2 Gastrointestinal: Normal bowel sounds, Soft and benign - Problems (1) COPD exacerbation Onset Date: 05/20/17 Current Visit: No Status: Acute Plan: Patient is 53 years of age admitted with COPD exacerbation trial off BiPAP labs chemistries reviewed white count is normal CT scan does not show any evidence of pulmonary embolism chest x-ray is clear
[2024-03-22] MEDS: predniSONE 20 MG TAB PO SCH (20:22)
[2024-03-23 05:40] LABS: Absolute Monocytes 0.3 K/uL (0.1-1.3); Absolute Neutrophil 2.9 K/uL (1.8-8.0); Basophils % 0.1 % (0-1.3); Hematocrit 34.3 % (36.0-45.0); Hemoglobin 11.6 g/dL (12.0-15.0); Lymphocytes % 23.2 % (15.3-44.8); MCH 31.2 pg (27.0-35.0); MCHC 33.7 g/dL (32.0-36.0); MCV 92.7 fL (80-100); MPV 7.9 fL (7.6-11.3); Neutrophils % 69.7 % (41.7-73.7); Nucleated Red Blood Cells % 0.1 % (0-0); Platelets 164 thou/uL (152-406); Red Cell Distribution Width 13.6 % (12.1-15.2)
[2024-03-23 06:05] LABS: Anion Gap 7.5 mEq/L (5.0-15.0); Potassium 4.5 mEq/L (3.5-5.1)
[2024-03-23] MEDS: levoFLOXacin 500 MG TAB PO SCH (08:00)
--- NOTE | 2024-03-23 12:13 | P.PN ---
Date of Service: 03/23/24 Subjective: Tolerating BiPAP overnight and nasal cannula during the day No acute events overnight periodic anxiety, on PRN ativan here Family supposed to being trelegy Slowly improving OK to downgrade to floor today ROS: 10 point ROS as noted above, otherwise negative Physical exam GEN: Alert, oriented, NAD HEENT: Normal conjunctiva, sclera anicteric CV: Regular rate and rhythm, no edema Pulm: Diminished breath sounds bilaterally with expiratory wheezing on nasal cannula ABD: Soft, nontender, nondistended MSK: No joint tenderness Integumentary: No rashes Neuro: Normal speech, normal affect Vitals reviewed Assessment: COPD exacerbationon chronic home O2/chronic steroids Suspected gastroenteritis with nausea/vomiting/diarrhea 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 Continue BiPAP, wean as tolerated Continue Xarelto, patient has only been taking once or twice a week as she does not like bruising that she gets when she takes it Counseled importance of compliance, no PE currently Also with significant anxiety, started on as needed Xanax Suspected gastroenteritis with nausea/vomiting/diarrhea Supportive care, IV fluids Hypertension BP soft, hold BP meds at this time DVT PPX:Continue xarelto Code status: Full Discharge Plan: Home Plan to discharge in: 48 Hours Time Spent Managing Pts Care (In Minutes): 35
[2024-03-23] MEDS: LORazepam 2 MG/ML VIAL IV ONE (13:50)
[2024-03-24] MEDS: ONDANSETRON 4 MG/2 ML VIAL IV PRN (00:06)
[2024-03-24 06:01] LABS: Absolute Lymphocytes (CBC) 0.8 K/uL (0.7-4.9); Absolute Monocytes 0.2 K/uL (0.1-1.3); Absolute Neutrophil 2.3 K/uL (1.8-8.0); Basophils % 0.1 % (0-1.3); Hematocrit 35.7 % (36.0-45.0); Hemoglobin 11.8 g/dL (12.0-15.0); MCH 30.9 pg (27.0-35.0); MCV 93.6 fL (80-100); MPV 7.7 fL (7.6-11.3); Monocytes % 6.9 % (3.3-12.3); Nucleated Red Blood Cells % 0.1 % (0-0); Platelets 166 thou/uL (152-406); RBC Red Blood Cell Count 3.82 M/uL (3.86-4.86); Red Cell Distribution Width 13.3 % (12.1-15.2)
[2024-03-24 06:09] LABS: Anion Gap 5.4 mEq/L (5.0-15.0); Potassium 4.4 mEq/L (3.5-5.1)
--- NOTE | 2024-03-24 07:12 | P.PN ---
Date of Service: 03/24/24 Subjective: Awake, c/o dyspnea mild distress noted, on [address] Barrera consulted ROS: 10 point ROS as noted above, otherwise negative Physical exam GEN: Alert, oriented, mild distress HEENT: Normal conjunctiva, sclera anicteric CV: Regular rate and rhythm, no edema Pulm: Clear BBS, symmetrical chest wall movement, 5L NC ABD: Soft on palpation, NT/ND MSK: No joint tenderness Integumentary: No rashes Neuro: Normal speech, normal affect Vitals reviewed Assessment: COPD exacerbationon chronic home O2/chronic steroids Suspected gastroenteritis with nausea/vomiting/diarrhea 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 Continue BiPAP, wean as tolerated Continue Xarelto, patient has only been taking once or twice a week as she does not like bruising that she gets when she takes it Counseled importance of compliance, no PE currently Also with significant anxiety, started on as needed Xanax Dr. Barrera consulted, started macrolide aand Daliresp Suspected gastroenteritis with nausea/vomiting/diarrhea Supportive care, IV fluids Hypertension BP soft, hold BP meds at this time DVT PPX:Continue xarelto Code status: Full Discharge Plan: Home Plan to discharge in: 48 Hours
[2024-03-24] MEDS: ROFLUMILAST 500 MCG TABLET PO SCH (08:05)
--- NOTE | 2024-03-24 08:07 | P.PN ---
Subjective Date of Service: 03/24/24 Chief Complaint: COPD exacerbation, gastroenteritis No change in patient's condition she still claims to be very dyspneic anxious Review of Systems General: Weakness Respiratory: Shortness of Breath Physical Examination - Vital Signs Temperature: 98.7 F Blood Pressure: 98/64 Pulse: 83 Respirations: 14 Pulse Ox (%): 96 - Physical Exam General: Alert, Oriented x3, Mild distress Respiratory: Clear to auscultation bilaterally Cardiovascular: No edema, Regular rate/rhythm Assessment And Plan - Current Problems (Diagnosis) (1) COPD exacerbation Onset Date: 05/20/17 Current Visit: No Status: Acute Plan: Patient admitted with COPD exacerbation add a p.o. macrolide and Daliresp continue with bronchodilators and steroids labs chemistries all reviewed no evidence of active sepsis cultures all negative
--- NOTE | 2024-03-24 08:21 | RAD REPORT ---
EXAMINATION: ONE VIEW CHEST XR CLINICAL INDICATION: Female, 53 years old.,COPD TECHNIQUE: Frontal chest projection is submitted. Examination is limited by patient positioning and t echnique. COMPARISON: 03/21/2024 FINDINGS: Progressive patchy right basilar airspace opacities. Streaky left basilar airspace opacities stable t o mildly progressive since prior exam and could reflect atelectasis. Background hyperlucency suggesting COPD. No pneumothorax or sizable effusion. The heart is normal in size. Mediastinal conto urs are unremarkable. IMPRESSION: Progressive patchy right basilar airspace opacities, concerning for pneumonia or sequelae of aspirati on.
[2024-03-24] MEDS: AZITHROMYCIN 250 MG TAB PO SCH (08:27)
--- NOTE | 2024-03-24 12:28 | EKG ---
Test Date: 2024-03-20 Test Time: 10:52:03 Missionary Coordinator: ALP MEASUREMENT RESULTS: Intervals: Rate: 110 UT: 126 QRSD: 76 QT: 372 QTc: 503 [place]: P: 77 UT: 126 QRS: 69 T: 64 INTERPRETIVE STATEMENTS: Sinus tachycardia Otherwise normal ECG Compared to ECG 09/05/2023 14:13:11 Sinus rhythm no longer present Electronically Signed On 03-24-24 12:20:20 STAFF RADIOGRAPHER by Efraín Pitts
[2024-03-25 05:23] VITALS: BMI 38.2
[2024-03-25 05:45] LABS: Absolute Lymphocytes (CBC) 1.1 K/uL (0.7-4.9); Absolute Monocytes 0.4 K/uL (0.1-1.3); Absolute Neutrophil 1.7 K/uL (1.8-8.0); Basophils % 0.1 % (0-1.3); Hematocrit 35.2 % (36.0-45.0); Hemoglobin 11.8 g/dL (12.0-15.0); Lymphocytes % 34.9 % (15.3-44.8); MCHC 33.5 g/dL (32.0-36.0); MCV 92.3 fL (80-100); MPV 7.9 fL (7.6-11.3); Monocytes % 12.8 % (3.3-12.3); Neutrophils % 52.2 % (41.7-73.7); Nucleated Red Blood Cells % 0.3 % (0-0); Platelets 153 thou/uL (152-406); RBC Red Blood Cell Count 3.81 M/uL (3.86-4.86); Red Cell Distribution Width 13.1 % (12.1-15.2)
[2024-03-25 05:57] LABS: Anion Gap 8.2 mEq/L (5.0-15.0); Potassium 4.2 mEq/L (3.5-5.1)
--- NOTE | 2024-03-25 09:47 | P.PN ---
Subjective Date of Service: 03/25/24 Chief Complaint: COPD exacerbation, lower lobe pneumonia Change in patient's condition she continues to remain anxious agitated had episodes of desat Review of Systems General: Weakness Respiratory: Shortness of Breath Physical Examination - Vital Signs Temperature: 97.6 F Blood Pressure: 112/57 Pulse: 98 Respirations: 21 Pulse Ox (%): 91 - Physical Exam General: Alert, Oriented x3, Mild distress Respiratory: Clear to auscultation bilaterally, Diminished, Expiratory wheezes Cardiovascular: No edema, Regular rate/rhythm, Normal S1 S2 Gastrointestinal: Normal bowel sounds Assessment And Plan - Current Problems (Diagnosis) (1) COPD exacerbation Onset Date: 05/20/17 Current Visit: No Status: Acute Plan: Patient admitted with COPD exacerbation has a right lower lobe infiltrate chemistries all reviewed no evidence of underlying sepsis continue with levofloxacin Zithromax is on maximal therapy right now signs oxygenation satisfactory so added some Tory
[2024-03-25] MEDS: BUSPIRONE HCL 5 MG TABLET PO SCH (10:43)
--- NOTE | 2024-03-25 14:06 | P.PN ---
Subjective Date of Service: 03/25/24 Chief Complaint: COPD exacerbation, lower lobe pneumonia Patient states she feels better today. She oxygen requirement weaned down from 5 L to 3 L by nasal cannula. She states that she used the BiPAP couple of times yesterday. Physical Examination - Vital Signs Temperature: 97.6 F Blood Pressure: 102/65 Pulse: 82 Respirations: 25 Pulse Ox (%): 99 - Studies Microbiology Data (last 24 hrs): 03/20/24 10:30 Blood - Blood Aerobic Blood Culture - Final No growth in 5 days. 03/20/24 10:30 Blood - Blood Anaerobic Blood Culture - Final No growth in 5 days. 03/20/24 10:38 Blood - Blood Aerobic Blood Culture - Final No growth in 5 days. 03/20/24 10:38 Blood - Blood Anaerobic Blood Culture - Final No growth in 5 days. Assessment And Plan - Plan Physical exam GEN: Alert, oriented, NAD HEENT: Normal conjunctiva, sclera anicteric CV: Regular rate and rhythm, no edema Pulm: Diminished breath sounds bilaterally, mild scattered expiratory wheezing. 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 Pulmonology is following Continue steroids, scheduled nebs, Dulera. Resume Trelegy on discharge. Intermittent BiPAP as needed Continue Xarelto. History of noncompliance with Xarelto Continue Xanax for anxiety Suspected gastroenteritis with nausea/vomiting/diarrhea Diarrhea resolved. Hypertension Patient is currently normotensive. Continue to hold BP meds. DVT PPX: xarelto Code status: Full Discharge Plan: Home
[2024-03-25] MEDS: IPRATROPIUM BROM 0.5MG/2.5ML ONE (20:39)
[2024-03-25] MEDS: ALBUTEROL 2.5 MG/3 ML NEB SOL ONE (20:39)
[2024-03-26] MEDS: ALBUTEROL 2.5 MG/3 ML NEB SOL ONE ×2 (01:42→21:49)
[2024-03-26] MEDS: IPRATROPIUM BROM 0.5MG/2.5ML ONE ×2 (01:42→21:49)
[2024-03-26 06:06] LABS: Absolute Lymphocytes (CBC) 1.8 K/uL (0.7-4.9); Absolute Monocytes 0.8 K/uL (0.1-1.3); Absolute Neutrophil 2.8 K/uL (1.8-8.0); Basophils % 0.6 % (0-1.3); Hematocrit 37.3 % (36.0-45.0); Hemoglobin 12.2 g/dL (12.0-15.0); Lymphocytes % 32.7 % (15.3-44.8); MCH 30.7 pg (27.0-35.0); MCHC 32.7 g/dL (32.0-36.0); MCV 93.6 fL (80-100); MPV 7.7 fL (7.6-11.3); Monocytes % 14.3 % (3.3-12.3); Neutrophils % 52.4 % (41.7-73.7); Nucleated Red Blood Cells % 0.2 % (0-0); Platelets 205 thou/uL (152-406); RBC Red Blood Cell Count 3.98 M/uL (3.86-4.86); Red Cell Distribution Width 13.4 % (12.1-15.2)
[2024-03-26 06:27] LABS: Anion Gap 4.5 mEq/L (5.0-15.0); Potassium 4.5 mEq/L (3.5-5.1)
[2024-03-26] MEDS: METHYLPREDNISOLONE 40 MG INJ IV ONE (14:19)
--- NOTE | 2024-03-26 14:26 | P.PN ---
Subjective Date of Service: 03/26/24 Chief Complaint: COPD exacerbation, lower lobe pneumonia Patient reports significant shortness of breath with exertion which makes her develop a panic attack. She is not tolerating 3 L by nasal cannula. Patient is on home oxygen. She also reports poor sleep. Physical Examination - Vital Signs Temperature: 98.0 F Blood Pressure: 102/57 Pulse: 87 Respirations: 20 Pulse Ox (%): 97 - Studies Microbiology Data (last 24 hrs): 03/20/24 10:30 Blood - Blood Aerobic Blood Culture - Final No growth in 5 days. 03/20/24 10:30 Blood - Blood Anaerobic Blood Culture - Final No growth in 5 days. 03/20/24 10:38 Blood - Blood Aerobic Blood Culture - Final No growth in 5 days. 03/20/24 10:38 Blood - Blood Anaerobic Blood Culture - Final No growth in 5 days. Assessment And Plan - Plan Physical exam GEN: Alert, oriented, NAD HEENT: Normal conjunctiva, sclera anicteric CV: Regular rate and rhythm, no edema Pulm: Diminished breath sounds bilaterally, mild scattered expiratory wheezing. 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 Pulmonology is following Continue steroids, scheduled nebs, Dulera. Resume Trelegy on discharge. Increase Xanax dose to treat her persistent anxiety. Continue Xarelto. History of noncompliance with Xarelto Continue Xanax for anxiety Increase activity as tolerated. Suspected gastroenteritis with nausea/vomiting/diarrhea Diarrhea resolved. Hypertension Patient is currently normotensive. Continue to hold BP meds. Insomnia/anxiety Continue doxepin Trazodone added for insomnia. DVT PPX: xarelto Code status: Full Discharge Plan: Home
[2024-03-26] MEDS: ALPRAZOLAM 1 MG TABLET PO PRN (14:29)
[2024-03-26] MEDS: LORazepam 2 MG/ML VIAL IV ONE (18:33)
[2024-03-26] MEDS: TRAZODONE 50 MG TABLET PO SCH (21:06)
[2024-03-27] MEDS: ALBUTEROL 2.5 MG/3 ML NEB SOL ONE (06:35)
[2024-03-27] MEDS: IPRATROPIUM BROM 0.5MG/2.5ML ONE (06:35)
--- NOTE | 2024-03-27 16:23 | P.PN ---
Subjective Date of Service: 03/27/24 Chief Complaint: COPD exacerbation, lower lobe pneumonia Appears patient responds better to Ativan. She went into panic attack last night which improved with Ativan according to report. Patient did not require BiPAP. She is not tolerating 3 L by nasal cannula. Patient stated she had some sleep with the trazodone. Physical Examination - Vital Signs Temperature: 97.7 F Blood Pressure: 126/66 Pulse: 102 Respirations: 16 Pulse Ox (%): 90 Assessment And Plan - Plan Physical exam GEN: Alert, oriented, NAD HEENT: Normal conjunctiva, sclera anicteric CV: Regular rate and rhythm, no edema Pulm: Diminished breath sounds bilaterally, mild scattered expiratory wheezing. 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 Pulmonology is following Continue steroids, scheduled nebs, Dulera. Resume Trelegy on discharge. Xanax changed to Klonopin to improve anxiety treatment since patient is anxious all the time with intermittent panic attacks. History of noncompliance with Xarelto Continue Xarelto. Increase activity as tolerated. Suspected gastroenteritis with nausea/vomiting/diarrhea Diarrhea resolved. Hypertension Patient is currently normotensive. Continue to hold BP meds. Insomnia/anxiety Continue doxepin Trazodone added for insomnia. DVT PPX: xarelto Code status: Full Discharge Plan: Home
[2024-03-27] MEDS: clonazePAM 1 MG TAB PO SCH (20:33)
[2024-03-28 05:19] LABS: Absolute Lymphocytes (CBC) 1.5 K/uL (0.7-4.9); Absolute Monocytes 0.3 K/uL (0.1-1.3); Basophils % 0.1 % (0-1.3); Hematocrit 37.9 % (36.0-45.0); Hemoglobin 12.6 g/dL (12.0-15.0); Lymphocytes % 22.4 % (15.3-44.8); MCH 30.8 pg (27.0-35.0); MCHC 33.2 g/dL (32.0-36.0); MCV 92.8 fL (80-100); MPV 7.4 fL (7.6-11.3); Monocytes % 4.9 % (3.3-12.3); Neutrophils % 72.6 % (41.7-73.7); Platelets 280 thou/uL (152-406); RBC Red Blood Cell Count 4.08 M/uL (3.86-4.86); Red Cell Distribution Width 13.4 % (12.1-15.2)
[2024-03-28 05:28] LABS: Anion Gap 11.9 mEq/L (5.0-15.0); Potassium 4.9 mEq/L (3.5-5.1)
[2024-03-28 08:59] LABS: Blood Morphology Comment NOT SEEN (NOT SEEN); Platelet Estimate ADEQ; White Blood Cell Scan OK (OK)
--- NOTE | 2024-03-28 13:24 | P.PN ---
Subjective Date of Service: 03/28/24 Chief Complaint: COPD exacerbation, lower lobe pneumonia Patient is still experiencing intermittent panic attacks She is tolerating 3 L by nasal cannula. Physical Examination - Vital Signs Temperature: 98.4 F Blood Pressure: 118/61 Pulse: 94 Respirations: 20 Pulse Ox (%): 93 Assessment And Plan - Plan Physical exam GEN: Alert, oriented, NAD HEENT: Normal conjunctiva, sclera anicteric CV: Regular rate and rhythm, no edema Pulm: Diminished breath sounds bilaterally, no wheezing. 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 Pulmonology is following Continue steroids, scheduled nebs, Dulera. Resume Trelegy on discharge. Xanax changed to Klonopin to improve anxiety treatment since patient is anxious all the time with intermittent panic attacks. Klonopin titrated to 1 mg 3 times daily History of noncompliance with Xarelto Continue Xarelto. Increase activity as tolerated. Suspected gastroenteritis with nausea/vomiting/diarrhea Diarrhea resolved. Hypertension Patient is normotensive. Continue to hold BP meds. Insomnia/anxiety Continue doxepin Xanax changed to oral Klonopin. Patient states she also takes Cymbalta. Will start Cymbalta Trazodone added for insomnia. DVT PPX: xarelto Code status: Full Discharge Plan: Home
[2024-03-28] MEDS: clonazePAM 1 MG TAB PO SCH (13:40)
[2024-03-28] MEDS ORDERED: DULOXETINE 20 MG CAP PO SCH (14:00)
[2024-03-29 05:20] LABS: Absolute Lymphocytes (CBC) 1.8 K/uL (0.7-4.9); Absolute Monocytes 0.4 K/uL (0.1-1.3); Absolute Neutrophil 5.9 K/uL (1.8-8.0); Basophils % 0.2 % (0-1.3); Hematocrit 37.4 % (36.0-45.0); Hemoglobin 12.6 g/dL (12.0-15.0); Lymphocytes % 21.9 % (15.3-44.8); MCH 30.6 pg (27.0-35.0); MCHC 33.5 g/dL (32.0-36.0); MCV 91.3 fL (80-100); MPV 7.4 fL (7.6-11.3); Monocytes % 5.3 % (3.3-12.3); Neutrophils % 72.6 % (41.7-73.7); Nucleated Red Blood Cells % 0.1 % (0-0); Platelets 298 thou/uL (152-406); Red Cell Distribution Width 13.5 % (12.1-15.2)
[2024-03-29 05:35] LABS: Anion Gap 10.7 mEq/L (5.0-15.0); Potassium 4.7 mEq/L (3.5-5.1)
[2024-03-29] MEDS: LORAZEPAM 0.5 MG TABLET PO PRN (12:38)
[2024-03-29] MEDS: FUROSEMIDE 40 MG/4 ML VIAL IV SCH (15:21)
--- NOTE | 2024-03-29 16:59 | P.PN ---
Subjective Date of Service: 03/29/24 Chief Complaint: COPD exacerbation, lower lobe pneumonia Patient still appears anxious. She is tolerating 3-4 L by nasal cannula. Nursing staff walked patient in her room today. Physical Examination - Vital Signs Temperature: 97.9 F Blood Pressure: 121/59 Pulse: 106 Respirations: 22 Pulse Ox (%): 94 Assessment And Plan - Plan Physical exam GEN: Alert, oriented, Anxious. HEENT: Normal conjunctiva, sclera anicteric CV: Regular rate and rhythm, no edema Pulm: Diminished breath sounds bilaterally, no wheezing. 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 Pulmonology is following Continue steroids, scheduled nebs, Dulera. IV steroid transition to oral prednisone. Resume Trelegy on discharge. Xanax changed to Klonopin to improve anxiety treatment since patient is anxious all the time with intermittent panic attacks, however patient stated Ativan works better than Xanax or Klonopin. Klonopin changed to Ativan. Titrate Ativan to treat anxiety. History of noncompliance with Xarelto Continue Xarelto. Increase activity as tolerated. Patient ambulated in the room with 5 L of oxygen today. Trial of IV Lasix. Suspected gastroenteritis with nausea/vomiting/diarrhea Diarrhea resolved. Hypertension Patient is normotensive. Continue to hold BP meds. Insomnia/anxiety Continue doxepin Xanax changed to oral Klonopin, however patient stated Ativan works better than Xanax or Klonopin. Klonopin changed to oral Ativan. Titrate Ativan. Patient states she also takes Cymbalta but it does not work. Patient placed on buspirone by pulmonary. Continue buspirone. Trazodone added for insomnia. DVT PPX: xarelto Code status: Full Discharge Plan: Home
[2024-03-30 04:33] LABS: Absolute Lymphocytes (CBC) 1.4 K/uL (0.7-4.9); Absolute Monocytes 0.5 K/uL (0.1-1.3); Absolute Neutrophil 6.5 K/uL (1.8-8.0); Basophils % 0.2 % (0-1.3); Hematocrit 39.5 % (36.0-45.0); Hemoglobin 13.2 g/dL (12.0-15.0); Lymphocytes % 16.9 % (15.3-44.8); MCH 30.8 pg (27.0-35.0); MCHC 33.4 g/dL (32.0-36.0); MCV 92.3 fL (80-100); Monocytes % 6.5 % (3.3-12.3); Nucleated Red Blood Cells % 0.1 % (0-0); Platelets 351 thou/uL (152-406); RBC Red Blood Cell Count 4.28 M/uL (3.86-4.86); Red Cell Distribution Width 13.7 % (12.1-15.2)
[2024-03-30 04:42] LABS: Neutrophils % 76.4 % (41.7-73.7)
[2024-03-30 08:34] VITALS: O2SAT 96
[2024-03-30 08:39] VITALS: BP 113/60; TEMP 98.4
--- NOTE | 2024-03-30 10:05 | P.DS ---
Admission Date: 03/20/24 Discharge Date: 03/30/24 Disposition: ROUTINE DISCHARGE Discharge Condition: FAIR Reason for Admission: COPD exacerbation, lower lobe pneumonia Vital Signs/Physical Exam: Temp Pulse Resp BP Pulse Ox 98.4 F 83 16 113/60 98 03/30/24 08:00 03/30/24 08:00 03/30/24 08:00 03/30/24 08:00 03/30/24 08:00 Laboratory Data at Discharge: WBC 8.50 thou/uL (4.3-10.9) 03/30/24 04:08 Hgb 13.2 g/dL (12.0-15.0) 03/30/24 04:08 Hct 39.5 % (36.0-45.0) 03/30/24 04:08 Plt Count 351 thou/uL (152-406) 03/30/24 04:08 PT 12.0 SECONDS (9.4-12.5) 03/20/24 10:38 INR 1.14 03/20/24 10:38 APTT 32.3 SECONDS (24.3-36.9) 03/20/24 10:38 Sodium 134 mEq/L (136-145) L 03/30/24 04:08 Potassium 5.0 mEq/L (3.5-5.1) 03/30/24 04:08 BUN 28 mg/dL (7-18) H 03/30/24 04:08 Creatinine 1.13 mg/dL (0.55-1.02) H 03/30/24 04:08 Glucose 241 mg/dL (74-106) H 03/30/24 04:08 Total Bilirubin 0.5 mg/dL (0.2-1.0) 03/20/24 10:38 AST 14 U/L (15-37) L 03/20/24 10:38 ALT < 14 U/L (13-56) 03/20/24 10:38 Alkaline Phosphatase 73 U/L (45-117) 03/20/24 10:38 Home Medications: Albuterol Inhaler [Ventolin Inhaler*] 2 puff IH Q6H PRN 03/21/24 Doxepin HCl [Sinequan*] 10 mg PO BEDTIME 03/21/24 Spironolactone 25 mg PO DAILY 03/21/24 methocarbamoL [Methocarbamol] 500 mg PO BID 6AM 6PM 03/21/24 Albuterol Neb [Proventil 0.083% Neb Soln] 2.5 mg NEB [id number] #120 amp 03/30/24 Azithromycin Tab [Zithromax*] 500 mg PO DAILY #4 tab 03/30/24 Buspirone HCl [Buspar*] 5 mg PO BID #60 tab 03/30/24 Fluticasone/Umeclidin/Vilanter [Trelegy Ellipta 200-62.5-25] 1 each IH DAILY #30 unit 03/30/24 Ipratropium Neb [Atrovent*] 0.5 mg NEB [id number] #120 amp 03/30/24 LORazepam [Ativan*] 1.5 mg PO Q8H PRN #60 tab 03/30/24 Rivaroxaban [Xarelto*] 10 mg PO DAILY #30 tab 03/30/24 Roflumilast [Daliresp*] 500 mcg PO DAILY #30 tab 03/30/24 Trazodone [Desyrel*] 50 mg PO BEDTIME #30 tab 03/30/24 levoFLOXacin [Levaquin*] 500 mg PO DAILY #4 tab 03/30/24 predniSONE [Deltasone*] 10 mg PO DAILY #75 tab 03/30/24 New Medications: Ipratropium Neb [Atrovent*] 0.5 mg NEB [id number] #120 amp Albuterol Neb [Proventil 0.083% Neb Soln] 2.5 mg NEB [id number] #120 amp LORazepam [Ativan*] 1.5 mg PO Q8H PRN #60 tab PRN Reason: Anxiety Buspirone HCl [Buspar*] 5 mg PO BID #60 tab Roflumilast [Daliresp*] 500 mcg PO DAILY #30 tab predniSONE [Deltasone*] 10 mg PO DAILY #75 tab Trazodone [Desyrel*] 50 mg PO BEDTIME #30 tab levoFLOXacin [Levaquin*] 500 mg PO DAILY #4 tab Fluticasone/Umeclidin/Vilanter [Trelegy Ellipta 200-62.5-25] 1 each IH DAILY #30 unit Rivaroxaban [Xarelto*] 10 mg PO DAILY #30 tab Azithromycin Tab [Zithromax*] 500 mg PO DAILY #4 tab Diet: AHA Activity: Ad flaca Followup: Yolanda Poe NP [Primary Care Provider] - 1 Week Nicholas Barrera MD [ACTIVE - CAN ADMIT] - 1-2 Weeks
[2024-03-30] MEDS ORDERED: LORAZEPAM 1 MG TABLET PO ONE (10:53)
== END 2024-03-30 11:15 | disposition home or self-care (01) | DRG 190 ==
LOC: ER 10:06 → ERHOLD 13:19 → 2ND 20:58 → 3RD-ICU 03-21 00:39 → 2ND 03-25 18:10
PROVIDERS: ADMIT Hospitalist; ATTEND Internal Medicine
PROC: 4A033R1 Measurement of Arterial Saturation, Peripheral, Percutaneous Approach (ICD-10-PCS; principal; 2024-03-20)
PROC: 5A09557 Assistance with Respiratory Ventilation, Greater than 96 Consecutive Hours, Continuous Positive Airway Pressure (ICD-10-PCS; 2024-03-20)
DX: J44.1 Chronic obstructive pulmonary disease with (acute) exacerbation (principal); J96.01 Acute respiratory failure with hypoxia; J96.02 Acute respiratory failure with hypercapnia; I10 Essential (primary) hypertension; F41.0 Panic disorder [episodic paroxysmal anxiety]; G47.00 Insomnia, unspecified; E11.9 Type 2 diabetes mellitus without complications; Z99.81 Dependence on supplemental oxygen; Z90.711 Acquired absence of uterus with remaining cervical stump; Z86.718 Personal history of other venous thrombosis and embolism; Z11.52 Encounter for screening for COVID-19; Z79.01 Long term (current) use of anticoagulants; Z86.711 Personal history of pulmonary embolism; Z91.148 Patient's other noncompliance with medication regimen for other reason; Z79.52 Long term (current) use of systemic steroids; Z79.899 Other long term (current) drug therapy; Z90.710 Acquired absence of both cervix and uterus
CPT/HCPCS: 36415; 36600; 71045; 71275; 80048; 80053; 81001; 82805; 82947; 83605; 83880; 84439; 84443; 85025; 85610; 85730; 87040; 87804; 87811; 93005; 94640; 94660; 94760; 96361; 96365; 96375; 99285; J1940; J2270; J2405; J2919; J3535; J7030; J7040; J7050; J7512; J7613; J7644; Q9967

== ENCOUNTER 2024-11-17 15:09 | Observation (INO) | payer OTHER ==
--- OUTSIDE RECORDS SUMMARY | 2024-11-17 15:28 | XMS REPORT | Continuity of Care Document ---
Author Name Unknown Address [address] [facility] [address] [place] [address] [facility] Address [address] [facility] 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 Name Role Phone YENIFER CRUZ Primary Care Physician Unavailab MECHE Hylton Attending Clinician Willie starkey Doctor Unassigned, [place]inert Attending Clinician Jina Garcia MD Attending Clinician [phone] JINA FELTON Attending Clinician Unavailable COLLIN ORTEGA Attending Clinician Unavailable COLLIN ORTEGA Attending Clinician Unavailable Meche Lam MD Attending Clinician + [phone] Doctor Unassigned, [place]inert Attending Clinician Bradley Sandhu MD Attending Clinician [phone] Meche Lechuga MD Attending Clinician [phone] Only, Adc Test Attending Clinician Unavailable Pob, [facility] Main Attending Clinician UnavailJn Walker Attending Clinician Unavailable MECHE LAM Admitting Clinician JINA Dockery Admitting Clinician Unavailable Meche Lam MD Admitting Clinician [phone] Jn Barrios Admitting Clinician Unavailable Payers Payer Name Policy Type Policy Number Effective Date Expirati on Date Source [facility] [id number] 2020 00:00:00 Problems Condition Name Condition Details Condition Category Status Onset Date Resolution Date Last Treatment Date Treating Clinician Comments Source Deep vein thrombosis (DVT) of proximal lower extremity, unspecifie d chronicity , unspecifie d laterality Deep vein thrombosis (DVT) of proximal lower extremity, unspecifie d chronicity , unspecifie d laterality Disease Active 2023-02 00:00: 00 [facility] Obesity (BMI 30-39.9) Obesity (BMI 30-39.9) Disease Active 2023-02 00:00: 00 [facility] Tachycardi a Tachycardi a Disease Active 2023-02 00:00: 00 [facility] Bradycardi a Bradycardi a Disease Active 2023-02 00:00: 00 [facility] Bronchitis Bronchitis Disease Active - 00:00: 00 [facility] COPD exacerbati on COPD exacerbati on Disease Active 2014-0217 00:00: 00 [facility] Allergies, Adverse Reactions, Alerts Allergy Name Allergy Type Status Severity Reaction(s) Onset Date Inactive Date Treating Clinician Comments Source NO KNOWN ALLERGIE S Drug Class Active [facility] Social History Social Habit Start Date Stop Date Quantity Comments Source [facility] of [facility] use Current smoker [facility] History of Social function 2024-01-01 00:00:00 2024-01-01 00:00:00 [facility] Alcoholic beverage intake 2022-06-01 00:00:00 2022-06-01 00:00:00 Ex-drinker (finding) [facility] Tobacco use and exposure 2022-05-31 00:00:00 2022-05-31 00:00:00 Smokeless tobacco non-user [facility] Alcohol intake 2022-05-31 00:00:00 2022-05-31 00:00:00 Ex-drinker (finding) [facility] Exposure to SARS-CoV-2 (event) 2022-05-15 00:00:00 2022-05-25 13:29:00 Not sure [facility] Sex assigned at 1970 00:00:00 1970 00:00:00 [facility] Smoking Status Start Date Stop Date Source Ex-smoker 2022-05-31 00:00:00 2022-05[facility] Ordered Medication Name Filled Medication Name Start Date Stop Date Current Medication? Ordering Clinician Indication Dosage Frequency Signature (SIG) Comments Components Source ciprofloxac in 750 mg tablet 11-13 00:00: 00 Yes 1mg Chris Doherty fluconazole 150 mg tablet 11-13 00:00: 00 Yes 1mg Chris Doherty prednisone 50 mg tablet 11-05 00:00: 00 Yes 1mg Chris Doherty azithromyci n 500 mg tablet 11-05 00:00: 00 Yes 1mg Chris Doherty promethazin e-DM 6.25 mg-15 mg/5 mL oral syrup 18 00:00: 00 Yes 5mg/5 mL Chris Doherty Xarelto 10 mg tablet 9-16 00:00: 00 Yes 1mg Chris Doherty prednisone 10 mg tablet - 00:00: 00 Yes mg Chris Doherty albuterol sulfate HFA 90 mcg/actuati on aerosol inhaler - 00:00: 00 Yes 2mcg/ac tuation Chris Doherty Daliresp 500 mcg tablet - 00:00: 00 Yes 1mcg Chris Doherty venlafaxine ER 75 mg capsule,ext ended release 24 hr - 00:00: 00 Yes mg Chris Doherty alprazolam 0.25 mg tablet - 00:00: 00 Yes mg Chris Doherty Xarelto 10 mg tablet 7-29 00:00: 00 Yes 1mg Chris Doherty albuterol sulfate HFA 90 mcg/actuati on aerosol inhaler 09-11 00:00: 00 Yes mcg/act uation Chris Doherty ProAir RespiClick 90 mcg/actuati on breath activated 09-08 00:00: 00 Yes 12mcg/a ctuatio n Chris Doherty venlafaxine ER 37.5 mg capsule,ext ended release 24 hr - 00:00: 00 Yes mg Chris Doherty trazodone 50 mg tablet - 00:00: 00 Yes mg Chris Doherty alprazolam 0.25 mg tablet 08-23 00:00: 00 Yes mg Chris Doherty Xarelto 10 mg tablet 07-24 00:00: 00 Yes 1mg hCris Doherty atorvastati n 20 mg tablet 07-17 00:00: 00 Yes 1mg Chris Doherty amoxicillin 875 mg-potassiu debi clavulanate 125 mg tablet 07-16 00:00: 00 Yes 1mg Chris Doherty fluconazole 150 mg tablet 07-16 00:00: 00 Yes mg Chris Doherty sertraline 25 mg tablet - 00:00: 00 Yes 1mg Chris Doherty propranolol 10 mg tablet 07-02 00:00: 00 Yes 1mg Chris Doherty albuterol sulfate HFA 90 mcg/actuati on aerosol inhaler - 00:00: 00 Yes mcg/act uation Chris Doherty prednisone 10 mg tablet - 00:00: 00 Yes mg hCris Doherty spironolact one 25 mg tablet 3-05 00:00: 00 Yes mg Chris Doherty azithromyci n 250 mg tablet 2-09 00:00: 00 Yes mg Chris Doherty levofloxaci n 500 mg tablet 2-09 00:00: 00 Yes mg Chris Doherty duloxetine 20 mg capsule,del ayed release 1-06 00:00: 00 Yes 1mg Chris Doherty albuterol sulfate HFA 90 mcg/actuati on aerosol inhaler 2023-02 2-19 00:00: 00 Yes mcg/act uation Chris Doherty [...] Take 5 mg by mouth at bedtime. [facility] spironolact one 25 mg tablet 2023-02 14:30: 36 Yes 25mg Take 1 tablet by mouth in the morning. [facility] rivaroxaban 10 mg tablet 2023-02 14:29: 33 12-31 00:00 :00 No 10mg Take by mouth daily. [facility] predniSONE 10 mg tablet 2023-02 14:29: 31 Yes 10mg Take 1 tablet by mouth in the morning. [facility] apixaban 5 mg tablet 2023-02 14:14: 11 12-31 00:00 :00 No 5mg Take 1 tablet by mouth in the morning and 1 tablet in the evening. [facility] albuterol sulfate HFA 90 mcg/actuati on aerosol inhaler 2023-02 00:00: 00 Yes mcg/act uation Chris Doherty albuterol sulfate HFA 90 mcg/actuati on aerosol inhaler 2023-02 00:00: 00 Yes mcg/act uation Chris Doherty ipratropium 0.5 mg-albutero l 3 mg (2.5 mg base)/3 mL nebulizatio n soln 10-28 00:00: 00 Yes mg base)/3 mL Chris Doherty albuterol sulfate HFA 90 mcg/actuati on aerosol inhaler 0 8- 00:00: 00 Yes mcg/act uation Chris Doherty ipratropium 0.5 mg-albutero l 3 mg (2.5 mg base)/3 mL nebulizatio n soln 0 8- 00:00: 00 Yes 1mg base)/3 mL Chris Doherty prednisone 10 mg tablet 8- 00:00: 00 Yes 1mg Chris Doherty baclofen 5 mg tablet 0 8- 00:00: 00 Yes 1mg Chris Doherty doxycycline hyclate 100 mg capsule - 00:00: 00 Yes 1mg Chris Doherty azithromyci n 250 mg tablet - 00:00: 00 Yes mg Chris Doherty baclofen 5 mg tablet -24 00:00: 00 Yes 1mg Chris Doherty ipratropium 0.5 mg-albutero l 3 mg (2.5 mg base)/3 mL nebulizatio n soln 0 6-20 00:00: 00 Yes 1mg base)/3 mL Chris Doherty ciprofloxac in 500 mg tablet - 00:00: 00 Yes 1mg Chris Doherty prednisone 20 mg tablet - 00:00: 00 Yes 2mg Chris Doherty OZEMPIC 4 MG/3ML SOPN 0 -09 00:00: 00 Yes Crhis Doherty albuterol sulfate HFA 90 mcg/actuati on aerosol inhaler 4- 00:00: 00 Yes mcg/act uation Chris Doherty albuterol sulfate HFA 90 mcg/actuati on aerosol inhaler - 00:00: 00 Yes mcg/act uation Chris Doherty prednisone 20 mg tablet 3-08 00:00: 00 Yes 2mg Chris Doherty doxycycline hyclate 100 mg capsule 0 3-08 00:00: 00 Yes 1mg Chris Doherty OZEMPIC 2 MG/3ML SOPN 0 3-08 00:00: 00 Yes 2 Chris Doherty INHALE 2 PUFFS EVERY 3-4 HOURS PRN WHEEZING, COUGH, SHORTNESS OF BREATH 2-14 00:00: 00 Yes [id number] Chris Doherty INJECT 0.25 MG A WEEK FOR 4 WEEKS, THEN INCREASE TO 0.5 MG A WEEK 2 00:00: 00 Yes 23 Chris Doherty albuterol sulfate HFA 90 mcg/actuati on aerosol inhaler 03-20 00:00: 00 Yes mcg/act uation Chris Doherty prednisone 20 mg tablet 03-07 00:00: 00 Yes mg Chris Doherty USE 1 UNIT DOSE IN NEBULIZER EVERY 4 HOURS NEEDED. 03-07 00:00: 00 Yes [id number] Chris Doherty TAKE 5 ML EVERY 6 HOURS NEEDED. 03-07 00:00: 00 07-02 00:00 :00 No [id number] Chris Doherty TAKE 2 TABLETS ON DAY 1 THEN TAKE 1 TABLET A DAY FOR 4 DAYS. 03-07 00:00: 00 07-02 00:00 :00 No 250 Chris Doherty TAKE 1 CAPSULE EVERY MORNING. 2022-02 00:00: 00 07-02 00:00 :00 No 20 [...] TWICE A DAY 2022-02 00:00: 00 Yes Chris Doherty USE [...] Doherty TAKE 1 CAPSULE EVERY MORNING. 2022-02 00:00: 00 07-02 00:00 :00 No 20 Chris Doherty TAKE 2 TABS DAY 1 AND 2 AND 1 TAB DAY 3-5 2022-02 00:00: 00 07-02 00:00 :00 No 20 Chris Doherty TAKE 1 TABLET TWICE DAILY WITH FOOD. 2022-02 00:00: 00 07-02 00:00 :00 No [id number] Chris Doherty NITROFURANT OIN MONOHYDRATE /MACROCRY STALS 100 MG 11-15 00:00: 00 Yes Chris Doherty TIZANIDINE HYDROCHLORI DE 4 MG TABS 11-15 00:00: 00 Yes Chris Doherty TAKE 1 TABLET DAILY. 11-15 00:00: 00 07-02 00:00 :00 No 10 Chris Doherty INHALE 2 PUFFS EVERY 3-4 HOURS PRN WHEEZING, COUGH, SHORTNESS OF BREATH 11-15 00:00: 00 07-02 00:00 :00 No [id number] Chris Doherty TAKE 1 CAPSULE TWICE DAILY. 11-15 00:00: 00 07-02 00:00 :00 No 100 Chris Doherty USE 1 UNIT DOSE IN NEBULIZER EVERY 4 HOURS NEEDED. 11-15 00:00: 00 07-02 00:00 :00 No [id number] Chris Doherty TAKE 1 TAB DAILY FOR [...] 1 CAPSULE EVERY 6 TO 8 HOURS 10-11 00:00: 00 07-02 00:00 :00 No 4 Chris Doherty TAKE 1 TABLET EVERY 8 HOURS WITH FOOD NEEDED. 10-11 00:00: 00 07-02 00:00 :00 No 800 Chris Doherty ALBUTEROL SULFATE HFA 108 (90 Base) MCG/ACT AERS 10-01 00:00: 00 Yes Chris Doherty INHALE 1 [...] 09-07 00:00: 00 07-02 00:00 :00 No [id number] Chris Doherty BREZTRI AEROSPHERE 160-9-4.8 MCG/ACT AERO [...] 06-21 00:00: 00 07-02 00:00 :00 No [id number] Chris Doherty USE 1 UNIT DOSE EVERY 4-6 HOURS NEEDED FOR WHEEZING . 06-21 00:00: 00 07-02 00:00 :00 No [id number] Chris Doherty INHALE 2 PUFFS TWICE DAILY. RINSE MOUTH AFTER USE. 06-21 00:00: 00 07-02 00:00 :00 No [id number] Chris Doherty TAKE 1 TABLET TWICE DAILY AFTER MEALS NEEDED. 06-18 00:00: 00 07-02 00:00 :00 No 25 Chris Doherty TAKE 1 CAPSULE BY MOUTH ONCE DAILY 06-18 00:00: 00 07-02 00:00 :00 No 40 Chris Doherty ceFAZolin (ANCEF) injection 05-31 17:19: 00 05-31 17:28 :42 No PRN, Starting on Missy 05/31/22 at 1219, Until Missy 05/31/22 at 1228, IRA, Intra-op [facility] neomycin-po lymyxin-dex amethasone (MAXITROL) 3.5 mg/g-10,000 unit/g-0.1 % ophthalmic ointment 05-31 17:19: 00 05-31 17:28 :42 No PRN, Starting on Missy 05/31/22 at 1219, Until Missy 05/31/22 at 1228, Routine, Intra-op [facility] gentamicin injection 05-31 17:19: 00 05-31 17:28 :42 No PRN, Starting on Missy 05/31/22 at 1219, Until Missy 05/31/22 at 1228, IRA, Intra-op [facility] dexamethaso ne (DECADRON PHOSPHATE) injection 05-31 17:19: 00 05-31 17:28 :42 No PRN, Starting on Missy 05/31/22 at 1219, Until Missy 05/31/22 at 1228, Routine, Intra-op [facility] chondroitin sulf-sod hyaluronate (DUOVISC VISCO ELASTIC) intraocular injection 05-31 17:11: 00 05-31 17:28 :42 No PRN, Starting on Missy 05/31/22 at 1211, Until Missy 05/31/22 at 1228, Routine, Intra-op [facility] tetracaine (PONTOCAINE ) 0.5 % ophthalmic drops 05-31 17:01: 00 05-31 17:28 :42 No PRN, Starting on Missy 05/31/22 at 1201, Until Missy 05/31/22 at 1228, Routine, Intra-op [facility] eye block syringe 11 mL 05-31 17:01: 00 05-31 17:28 :42 No PRN, Starting on Missy 05/31/22 at 1201, Until Missy 05/31/22 at 1228, Intra-op [facility] water for irrigation irrigation solution 05-31 16:59: 00 05-31 17:28 :42 No PRN, Starting on Missy 05/31/22 at 1159, Until Missy 05/31/22 at 1228, Routine, Intra-op [facility] sodium chloride (NS) injection 05-31 16:58: 00 05-31 17:28 :42 No PRN, Starting on Missy 05/31/22 at 1158, Until Missy 05/31/22 at 1228, Routine, Intra-op [facility] EPINEPHrine (PF) 1:1,000 (1 mg/mL) (ADRENALIN (PF)) injection 05-31 16:58: 00 05-31 17:28 :42 No PRN, Starting on Missy 05/31/22 at 1158, Until Missy 05/31/22 at 1228, Routine, Intra-op [facility] balanced salt soln no.2 irrig. (BSS) ophthalmic solution 05-31 16:57: 00 05-31 17:28 :42 No PRN, Starting on Missy 05/31/22 at 1157, Until Missy 05/31/22 at 1228, Routine, Intra-op [facility] cyclopent 1%-tropic 1%-phenyl 2.5%-ketor 0.5% (MYDRIATIC #5) ophthalmic solution syringe 0.5 mL 05-31 15:15: 00 05-31 15:32 :00 No .5mL 0.5 mL, Left Eye, ONCE, 1 dose, On Missy 05/31/22 at 1015, Routine, DSU Pre-op [facility] lactated ringers IV infusion 1,000 mL 05-31 15:15: 00 05-31 15:34 :00 No 1000mL at 42 mL/hr, 1,000 mL, IV Infusion, ONCE, 1 dose, On Missy 05/31/22 at 1015, Routine, DSU Pre-op [facility] apixaban 5 mg tablet 05-31 13:21: 15 Yes 5mg Take 1 tablet by mouth in the morning and 1 tablet in the evening. [facility] rivaroxaban (XARELTO) 10 mg tablet 05-31 13:21: 15 Yes 10mg Take 1 tablet by mouth in the morning. [facility] predniSONE 10 mg tablet 05-31 13:21: 15 Yes 10mg Take 1 tablet by mouth in the morning. [facility] fluticasone -umeclidin- vilanter (TRELEGY ELLIPTA) 200-62.5-25 mcg DsDv 05-31 13:21: 15 Yes 1{puff} Inhale 1 Puff in the morning. [facility] montelukast 10 mg tablet 05-31 13:21: 15 Yes 10mg Take 1 tablet by mouth as needed. [facility] albuterol (PROAIR HFA) 90 mcg/actuati on inhaler 05-31 13:21: 15 Yes 2{puff} Inhale 2 Puffs every 6 (six) hours as needed for Wheezing or Shortness of Breath. [facility] KETOROLAC TROMETHAMIN E 0.5 % SOLN 05-22 00:00: 00 Yes Chris Doherty OFLOXACIN 0.3 % SOLN 05-22 00:00: 00 Yes Chris Doherty PREDNISOLON E ACETATE 1 % SUSP 05-22 00:00: 00 Yes Chris Doherty TAKE 1 TABLET DAILY. 05-21 00:00: 00 07-02 00:00 :00 No 500 Chris Doherty FLUOXETINE HYDROCHLORI DE 40 MG 30 00:00: 00 Yes Chris Doherty USE 1 VIAL IN NEBULIZER EVERY 6 HOURS NEEDED 05-05 00:00: 00 Yes Chris Doherty TAKE 1 TABLET BY MOUTH EVERY 12 HOURS FOR 10 DAYS 2023-0 3-18 00:00: 00 07-02 00:00 :00 No Chris Rikki Doherty TAKE 10 MILILLITERS BY MOUTH EVERY 6 HOURS -18 00:00: 00 07-02 00:00 :00 No Chris Rikki Doherty TAKE 1 TABLET BY MOUTH EVERY DAY AT BEDTIME FOR 30 DAYS 3- 00:00: 00 Yes Chris Doherty TRELECORKY ELLIPTA 200-62.5-25 MCG/ACT AEPB 3-09 00:00: 00 Yes Chris Rikki Doherty XARELTO 10 MG TABS - 00:00: 00 07-02 00:00 :00 No Chris Rikki Doherty TAKE 2 TABLETS ON DAY 1 THEN TAKE 1 TABLET A DAY FOR 4 DAYS. 04-17 00:00: 00 07-02 00:00 :00 No 250 Chris Rikki Doherty TAKE DIRECTED. 04-17 00:00: 00 07-02 00:00 :00 No 4 Chris Rikki Doherty TAKE 1 CAPSULE EVERY MORNING. 04-17 00:00: 00 07-02 00:00 :00 No 10 Chris Rikki Doherty TAKE 10 ML 4-6 HOURS NEEDED - 00:00: 00 07-02 00:00 :00 No [id number] Chris Rikki Doherty TAKE DIRECTED. 03-10 00:00: 00 07-02 00:00 :00 No 4 Chris Rikki Doherty LEVOFLOXACI N 500 MG TABS 2021-02 00:00: 00 07-02 00:00 :00 No Chris Rikki Doherty TAKE 1 TABLET 3 TIMES DAILY NEEDED. 2021-02 00:00: 00 07-02 00:00 :00 No 10 Chris Rikki Doherty TAKE 2 TABS DAY 1 AND 2 AND 1 TAB DAY 3-5 2021-02 00:00: 00 07-02 00:00 :00 No Chris Brandt Chas INHALE 1 PUFF BY MOUTH EVERY DAY 2021-02 00:00: 00 Yes Chris Rikki Doherty TAKE 1 AND 1/2 TABLETS DAILY. 2021-02 00:00: 00 No TAKE 1 CAPSULE EVERY MORNING. 2021-02 00:00: 00 No USE 1 UNIT DOSE IN NEBULIZER EVERY 4 HOURS NEEDED. 2021-02 00:00: 00 No INHALE 2 PUFFS BY MOUTH EVERY 6 HOURS NEEDED 2021-02 00:00: 00 No PREDNISONE 20 MG TABS 2021-02 2 00:00: 00 No TAKE 1 CAPSULE BY [...] 2021-02 00:00: 00 No Dose Unknown 2021-02 2 00:00: 00 No Dose Unknown 2021-02 00:00: 00 No TAKE 1 TABLET BY MOUTH EVERY DAY 2021-02 00:00: 00 No TAKE 1 AND 1/2 TABLETS DAILY. 2021-02 00:00: 00 07-02 00:00 :00 Isabel Doherty TAKE 1 CAPSULE EVERY MORNING. 2021-02 00:00: 00 07-02 00:00 :00 Isabel Doherty USE 1 UNIT DOSE IN NEBULIZER EVERY 4 HOURS NEEDED. 2021-02 00:00: 00 07-02 00:00 :00 No [id number] it Chris Doherty PREDNISONE 20 MG TABS 2021-02 00:00: [...] ONCE DAILY WITH DINNER 2021-02 00:00: 00 07-02 00:00 :00 Isabel Doherty FLUOXETINE HCL 20 MG CAPS 2021-02 00:00: 00 07-02 00:00 :00 Isabel Doherty PREDNISONE 10 MG TABS 2021-02 00:00: 00 07-02 00:00 :00 Isabel Doherty TAKE 1 TABLET BY MOUTH EVERY DAY FOR 30 DAYS 2021-02 00:00: 00 07-02 00:00 :00 Isabel Doherty TAKE 1 TABLET BY MOUTH EVERY 6 HOURS NEEDED ANXIETY 2021-02 00:00: 00 07-02 00:00 :00 Isabel Doherty Dose Unknown 2021-02 00:00: 00 07-02 00:00 :00 Isabel Doherty ESZOPICLONE 2 MG TABS 2021-02 2-15 00:00: 00 07-02 00:00 :00 No Chris Rikki Chas TAKE 1 TABLET BY MOUTH EVERY DAY 2021-02 2-15 00:00: 00 07-02 00:00 :00 No Chris Doherty Dose Unknown 2021-02 2- 00:00: 00 07-02 00:00 :00 No Chris Rikki Chas SYMBICORT 160-4.5 MCG/ACT AERO 2021-02 2 00:00: 00 07-02 00:00 :00 No Chris Doherty Dose Unknown 2021-02 2 00:00: 00 07-02 00:00 :00 No Chris Doherty Dose Unknown 2021-02 2 00:00: 00 07-02 00:00 :00 No Chirs Doherty Dose Unknown 2021-02 2 00:00: 00 07-02 00:00 :00 No Chris Doherty ALBUTEROL SULFATE HFA 108 (90 Base) MCG/ACT AERS 2021-02 00:00: 00 07-02 00:00 :00 No Chris Doherty TAKE 1 TABLET BY MOUTH EVERY DAY 2021-02 00:00: 00 07-02 00:00 :00 No Chris Doherty Dose Unknown 2021-02 2 00:00: 00 07-02 00:00 :00 No Chris Doherty TAKE 1 CAPSULE EVERY MORNING. 2021-02 00:00: 00 07-02 00:00 :00 No 20 Chris Doherty TAKE 1 TABLET TWICE DAILY NEEDED. 2021-02 00:00: 00 07-02 00:00 :00 No 50 Chris Doherty TRELEGY ELLIPTA 200-62.5-25 MCG/ACT AEPB 2021-02 00:00: 00 07-02 00:00 :00 No Chris Doherty TRELEGY ELLIPTA 200-62.5-25 MCG/ACT AEPB 2021-02 1-03 00:00: 00 07-02 00:00 :00 No Chris Doherty INHALE 2 PUFFS BY MOUTH EVERY 6 HOURS NEEDED 2021-02 0 00:00: 00 07-02 00:00 :00 No Chris CURRY ELLIPTA 100-62.5-25 MCG/ACT AEPB 2021-02 0- 00:00: 00 07-02 00:00 :00 No Chris Doherty TAKE 1 CAPSULE BY MOUTH THREE TIMES A DAY NEEDED COUGH 2021-02 0 00:00: 00 07-02 00:00 :00 No Chris Doherty TAKE 1 TABLET TWICE A DAY X 3 DAYS, THEN 1 TAB DAILY X 3 DAYS, THEN 1/2 TAB DAILY X 4 DAYS 2021-02 00:00: 00 07-02 00:00 :00 No Chris Doherty TAKE 1 TABLET BY MOUTH EVERY DAY FOR 90 DAYS 0 - 00:00: 00 No TAKE 1 TABLET BY MOUTH EVERY DAY FOR 90 DAYS 0 10-31 00:00: 00 07-02 00:00 :00 No Chris Doherty TAKE 1 TABLET BY MOUTH EVERY DAY FOR 90 DAYS 0 8- 00:00: 00 Yes 10 Chris Doherty TAKE 1 TABLET BY MOUTH EVERY DAY FOR 90 DAYS 0 8- 00:00: 00 No 10 TAKE 1 TABLET BY MOUTH EVERY DAY FOR 90 DAYS 0 8- 00:00: 00 No 10 TAKE 1 TABLET BY MOUTH EVERY DAY FOR 90 DAYS 0 09-12 00:00: 00 Yes 20 Chris Doherty TAKE 1 TABLET BY MOUTH EVERY DAY FOR 90 DAYS 0 - 00:00: 00 No 20 TAKE 1 TABLET BY MOUTH EVERY DAY FOR 90 DAYS 0 09-12 00:00: 00 No 20 Lexapro 5 mg tablet 0 08-30 00:00: 00 Yes 1mg Chris Doherty hydroxyzine HCl 25 mg tablet 0 08-30 00:00: 00 Yes 1mg Chris Doherty Effexor XR 75 mg capsule,ext ended release 0 08-30 00:00: 00 Yes 1mg Chris Doherty Effexor XR 150 mg capsule,ext ended release 08-30 00:00: 00 Yes 1mg Chris Doherty [...] MOUTH EVERY DAY FOR 90 DAYS 0 08-29 00:00: 00 07-02 00:00 :00 No Chris Doherty Singulair 10 mg tablet 0 08-14 00:00: 00 Yes 1mg Chris Doherty Singulair 10 mg tablet 0 08-14 00:00: 00 No 1mg Dose Unknown 0 08-14 00:00: 00 No Symbicort 160 mcg-4.5 mcg/actuati on HFA aerosol inhaler 0 08-03 00:00: 00 Yes 2mcg/ac tuation Chris Doherty ProAir HFA 90 mcg/actuati on aerosol inhaler 08-03 00:00: 00 Yes 1mcg/ac tuation Chris Doherty Symbicort 160 mcg-4.5 mcg/actuati on HFA aerosol inhaler 0 6-16 00:00: 00 No 2mcg/ac tuation ProAir HFA 90 mcg/actuati on aerosol inhaler 0 6-16 00:00: 00 No 1mcg/ac tuation Dose Unknown 0 6-16 00:00: 00 No venlafaxine ER 225 mg tablet,exte nded release 24 hr 0 5-13 00:00: 00 Yes 1mg Chris Doherty hydroxyzine [...] No Dose Unknown 0 5-13 00:00: 00 05-15 00:00 :00 No 225 Chris Doherty Dose Unknown 2021-0 4-14 00:00: 00 Yes Chris Doherty Dose Unknown 0 4-14 00:00: 00 Yes Chris Doherty Dose Unknown 0 4-14 00:00: 00 No Dose Unknown 2021-0 4-14 00:00: 00 No Dose Unknown 2021-0 4-14 00:00: 00 No Dose Unknown 0 4-14 00:00: 00 No ProAir HFA 90 mcg/actuati on aerosol inhaler 0 3-18 00:00: 00 Yes 1mcg/ac tuation Chris Doherty prednisone 20 mg tablet 0 3-18 00:00: 00 Yes mg Chris Doherty ipratropium 0.5 mg-albutero l 3 mg (2.5 mg base)/3 mL nebulizatio n soln 2021-0 3-18 00:00: 00 Yes 3mg base)/3 mL Chris Doherty ProAir HFA 90 mcg/actuati on aerosol inhaler 2022-0 3-18 00:00: 00 No 1mcg/ac tuation prednisone 20 mg tablet 2021-0 3-18 00:00: 00 No mg ipratropium 0.5 mg-albutero l 3 mg (2.5 mg base)/3 mL nebulizatio n soln 2021-0 3-18 00:00: 00 No 3mg base)/3 mL Dose Unknown 2021-0 3-18 00:00: 00 No prednisone 20 mg tablet 2021-0 3-18 00:00: 00 No mg USE 1 UNIT DOSE IN NEBULIZER EVERY 4 HOURS NEEDED. 2021-0 3-18 00:00: 00 No Dose Unknown 2021-0 3-17 00:00: 00 Yes Chris Doherty Dose Unknown 2021-0 3-17 00:00: 00 Yes Chris Doherty Dose Unknown 2021-0 3-17 00:00: 00 Yes Chris Doherty Dose Unknown 2021-0 3-17 00:00: 00 No Dose Unknown 2021-0 3-17 00:00: 00 No Dose Unknown 2-0 3-17 00:00: 00 No Dose Unknown 2022-0 3-17 00:00: 00 No Dose Unknown 2-0 3-17 00:00: 00 No Dose Unknown 2-0 3-17 00:00: 00 No Dose Unknown 2022-0 2-21 00:00: 00 Yes Chris Doherty Dose Unknown 2022-0 2-21 00:00: 00 Yes Chris Doherty Dose Unknown 2-0 2-21 00:00: 00 No Dose Unknown 2-0 2-21 00:00: 00 No Dose Unknown 2-0 2-21 00:00: 00 No Dose Unknown 2022-0 2-21 00:00: 00 No Dose Unknown 2-0 2-17 00:00: 00 Yes Chris Doherty venlafaxine ER 150 mg capsule,ext ended release 24 hr 2-0 2-17 00:00: 00 Yes 1mg Chris Doherty Dose Unknown 2-0 2-17 00:00: 00 No Dose Unknown 2022-0 2-17 00:00: 00 No Dose Unknown 2022-0 2-17 00:00: 00 No venlafaxine ER 150 mg capsule,ext ended release 24 hr 2 00:00: 00 No 1mg Dose Unknown 1- 00:00: 00 Yes Chris Doherty Dose Unknown 1- 00:00: 00 Yes Chris Doherty Dose Unknown 1- 00:00: 00 No Dose Unknown - 00:00: 00 No Dose Unknown 1- 00:00: 00 No Dose Unknown - 00:00: 00 No hydroxyzine HCl 25 mg tablet 2020-02 2 00:00: 00 Yes 1mg Chris Doherty venlafaxine ER 150 mg capsule,ext ended release 24 hr 2020-02 00:00: 00 Yes 1mg Chris Doherty hydroxyzine HCl 25 mg tablet 2020-02 00:00: 00 No 1mg venlafaxine ER 150 mg capsule,ext ended release 24 hr 2020-02 00:00: 00 No 1mg hydroxyzine HCl 25 mg tablet 2020-02 00:00: 00 No 1mg venlafaxine ER 150 mg capsule,ext ended release 24 hr 2020-02 00:00: 00 No 1mg Singulair 10 mg tablet 2020-02 2 00:00: 00 Yes 1mg Chris Doherty prednisone 20 mg tablet 2020-02 2 00:00: 00 Yes mg Chris Doherty Effexor XR 75 mg capsule,ext ended release 2020-02 2 00:00: 00 Yes 1mg Chris Doherty prednisone 20 mg tablet 2020-02 2- 00:00: 00 No mg Dose Unknown 2020-02 2- 00:00: 00 No Dose Unknown 2020-02 2 00:00: 00 No Singulair 10 mg tablet 2020-02 2- 00:00: 00 No 1mg prednisone 20 mg tablet 2020-02 2- 00:00: 00 No mg Effexor XR 75 mg capsule,ext ended release 2020-02 2 00:00: 00 No 1mg Symbicort 160 mcg-4.5 mcg/actuati on HFA aerosol inhaler 2020-02 2- 00:00: 00 Yes 2mcg/ac tuation Chris Doherty [...] No 1mg prednisone 20 mg tablet 2020-02 0 00:00: 00 Yes 2mg Chris Doherty azithromyci n 250 mg tablet 2020-02 0 00:00: 00 Yes mg Chris Doherty Tessalon Perles 100 mg capsule 2020-02 0- 00:00: 00 Yes 1mg Chris Doherty prednisone 20 mg tablet 2020-02 0- 00:00: 00 No 2mg Dose Unknown 2020-02 0- 00:00: 00 No prednisone 20 mg tablet 2020-02 0- 00:00: 00 No 2mg azithromyci n 250 mg tablet 2020-02 0- 00:00: 00 No mg Tessalon Perles 100 mg capsule 2020-02 0- 00:00: 00 No 1mg ProAir HFA 90 mcg/actuati on aerosol inhaler 11-10 00:00: 00 Yes 1mcg/ac tuation Chris Doherty [...] No 2mg levofloxaci n 500 mg tablet 8 00:00: 00 No 1mg Zithromax 250 mg tablet 09-15 00:00: 00 Yes mg Chris Doherty Zithromax [...] on HFA aerosol inhaler 6- 00:00: 00 Yes 2mcg/ac tuation Chris Doherty Symbicort 160 mcg-4.5 mcg/actuati on HFA aerosol inhaler 6- 00:00: 00 No 2mcg/ac tuation Symbicort 160 mcg-4.5 mcg/actuati on HFA aerosol inhaler 5-03 00:00: 00 Yes 2mcg/ac tuation Chris Doherty ProAir HFA 90 mcg/actuati on aerosol inhaler 5-03 00:00: 00 Yes 1mcg/ac tuation Chris Doherty Augmentin 875 mg-125 mg tablet 5-03 00:00: 00 Yes 1mg Chris Doherty hydroxyzine HCl 50 mg tablet 5-03 00:00: 00 Yes 1mg Chris Doherty Effexor [...] on aerosol inhaler - 00:00: 00 Yes 1mcg/ac tuation Chris Doherty ProAir HFA 90 mcg/actuati on aerosol inhaler - 00:00: 00 No 1mcg/ac tuation ProAir HFA 90 mcg/actuati on aerosol inhaler 06-09 00:00: 00 No 1mcg/ac tuation apixaban 5 mg tablet -08 13:00: 39 Yes 5mg Take 5 mg by mouth 2 (two) times daily. [facility] prednisone 20 mg tablet - 00:00: 00 Yes 2mg Chris Doherty levofloxaci n 500 mg tablet - 00:00: 00 Yes 1mg Chris Doherty prednisone 20 mg tablet 05-13 00:00: 00 No 2mg levofloxaci n 500 mg tablet 05-13 00:00: 00 No 1mg prednisone 20 mg tablet 05-13 00:00: 00 No 2mg levofloxaci n 500 mg tablet 05-13 00:00: 00 No 1mg ProAir HFA 90 mcg/actuati on aerosol inhaler 2- 00:00: 00 Yes 1mcg/ac tuation Chris Doherty ipratropium 0.5 mg-albutero l 3 mg (2.5 mg base)/3 mL nebulizatio n soln 04-08 00:00: 00 Yes 3mg base)/3 mL Chris Doherty ProAir HFA 90 mcg/actuati on aerosol inhaler 04-08 00:00: 00 No 1mcg/ac tuation ipratropium 0.5 mg-albutero l 3 mg (2.5 mg base)/3 mL nebulizatio n soln 04-08 00:00: 00 No 3mg base)/3 mL ProAir HFA 90 mcg/actuati on aerosol inhaler 04-08 00:00: 00 No 1mcg/ac tuation ipratropium 0.5 mg-albutero l 3 mg (2.5 mg base)/3 mL nebulizatio n soln 04-08 00:00: 00 No 3mg base)/3 mL ProAir HFA 90 mcg/actuati on aerosol inhaler 2- 00:00: 00 Yes 1mcg/ac tuation Chris Doherty ProAir HFA 90 mcg/actuati on aerosol inhaler 2- 00:00: 00 No 1mcg/ac tuation ProAir HFA 90 mcg/actuati on aerosol inhaler 2- 00:00: 00 No 1mcg/ac tuation ProAir HFA 90 mcg/actuati on aerosol inhaler 2019-02 00:00: 00 Yes 1mcg/ac tuation Chris F Chas montelukast 10 mg tablet 2019-02 00:00: 00 Yes 1mg Chris Doherty ProAir HFA 90 mcg/actuati on aerosol inhaler 1 00:00: 00 No 1mcg/ac tuation montelukast 10 mg tablet 2019-02 00:00: 00 No 1mg ProAir HFA 90 mcg/actuati on aerosol inhaler 2019-02 00:00: 00 No 1mcg/ac tuation montelukast 10 mg tablet 2019-02 00:00: 00 No 1mg Effexor XR 75 mg capsule,ext ended release 2019-0 9- 00:00: 00 Yes 1mg Chris Doherty Effexor XR 75 mg capsule,ext ended release 0 930 00:00: 00 No 1mg Effexor XR 75 mg capsule,ext ended release 0 9 00:00: 00 No 1mg ProAir HFA 90 mcg/actuati on aerosol inhaler 2019-0 8-17 00:00: 00 Yes 1mcg/ac tuation Chris Doherty ProAir HFA 90 mcg/actuati on aerosol inhaler 2019-0 8-17 00:00: 00 No 1mcg/ac tuation ProAir HFA 90 mcg/actuati on aerosol inhaler 0 8-17 00:00: 00 No 1mcg/ac tuation Effexor XR 75 mg capsule,ext ended release 2019-0 8-11 00:00: 00 Yes 1mg Chris Doherty Effexor XR 75 mg capsule,ext ended release 2019-0 8-11 00:00: 00 No 1mg Effexor XR 75 mg capsule,ext ended release 2019-0 8-11 00:00: 00 No 1mg prednisone 20 mg tablet 0 09-15 00:00: 00 Yes 2mg Chris Doherty Bromfed DM 2 mg-30 mg-10 mg/5 mL oral syrup 0 09-15 00:00: 00 Yes 75mg/5 mL Chris Doherty prednisone 20 mg tablet 0 09-15 00:00: 00 No 2mg Bromfed DM 2 mg-30 mg-10 mg/5 mL oral syrup 0 09-15 00:00: 00 No 75mg/5 mL prednisone [...] for inhalation 07-28 00:00: 00 Yes 1mcg hCris Doherty Trelegy Ellipta 100 mcg-62.5 mcg-25 mcg [...] 04-08 00:00: 00 Yes 1mcg/ac tuation Chris Doherty Trelegy Ellipta 100 mcg-62.5 mcg-25 mcg powder for inhalation 04-08 00:00: 00 Yes 1mcg Chris Doherty ProAir HFA 90 mcg/actuati on aerosol inhaler 04-08 00:00: 00 No 1mcg/ac tuation Trelegy Ellipta 100 mcg-62.5 mcg-25 mcg powder for inhalation 04-08 00:00: 00 No 1mcg ProAir HFA 90 mcg/actuati on aerosol inhaler 04-08 00:00: 00 No 1mcg/ac tuation Trelegy Ellipta 100 mcg-62.5 mcg-25 mcg powder for inhalation 2019-0 2-19 00:00: 00 No 1mcg bupropion HCl XL 150 mg 24 hr tablet, extended release 0 2-12 00:00: 00 Yes 1mg Chris Doherty buspirone 10 mg tablet 2019-0 2-12 00:00: 00 Yes 1mg Chris Doherty [...] 2019-0 2-07 00:00: 00 No 1mcg Spiriva Respimat 2.5 mcg/actuati on solution for inhalation 2019-0 2-06 00:00: 00 Yes 1mcg/ac tuation Chris Rikki Chas Spiriva Respimat 2.5 mcg/actuati on solution for inhalation 2019-0 2-06 00:00: 00 No 1mcg/ac tuation Spiriva Respimat 2.5 mcg/actuati on solution for inhalation 2019-0 2-06 00:00: 00 No 1mcg/ac tuation ProAir HFA 90 mcg/actuati on aerosol inhaler 03-13 00:00: 00 Yes 1mcg/ac tuation Chris Brandt Chas albuterol sulfate 2.5 mg/3 mL (0.083 %) solution for nebulizatio n 03-13 00:00: 00 Yes 3/3 mL (0.083 %) Chris Brandt Chas ProAir HFA 90 mcg/actuati [...] tablet 2018-02 00:00: 00 Yes mg Chris Doherty benzonatate 200 mg capsule 2018-02 00:00: 00 [...] 1 tab once daily for 3 days [facility] clonazePAM 0.5 mg tablet 02-25 00:00: 00 Yes .5mg Take 1 tablet by mouth 3 (three) times daily. [facility] ipratropium -albuterol 0.5 mg-3 mg(2.5 mg base)/3 mL nebulizer solution 02-25 00:00: 00 Yes 3mL Inhale 3 mL 4 (four) times daily as needed for Wheezing. [facility] Vital Signs Vital Name Observation Time Observation Value Comments S ourabrahan Systolic blood pressure 2024-01-01 20:14:00 123 mm[Hg] [facility] Diastolic blood pressure 2024-01-01 20:14:00 68 mm[Hg] [facility] Heart rate 2024-01-01 20:14:00 89 /min [facility] Body height 2024-01-01 20:14:00 162.6 cm [facility] Body weight 2024-01-01 20:14:00 101.379 kg [facility] BMI 2024-01-01 20:14:00 38.36 kg/m2 [facility] Oxygen saturation in Arterial blood by Pulse oximetry 2024-01-01 20:14:00 96 /min [facility] Oxygen saturation in Arterial blood by Pulse oximetry 2022-05-31 17:50:00 95 /min [facility] Systolic blood pressure 2022-05-31 17:45:00 115 mm[Hg] [facility] Diastolic blood pressure 2022-05-31 17:45:00 52 mm[Hg] [facility] Respiratory rate 2022-05-31 17:45:00 20 /min [facility] Heart rate 2022-05-31 17:23:00 84 /min Un[facility] Body temperature 2022-05-31 17:23:00 36.67 Arianna [facility] Body height 2022-05-25 18:00:00 162.6 cm [facility] Body weight 2022-05-25 18:00:00 92.08 kg [facility] BMI 2022-05-25 18:00:00 34.84 kg/m2 [facility] Systolic blood pressure 2022-05-31 15:31:00 122 mm[Hg] [facility] Diastolic blood pressure 2022-05-31 15:31:00 57 mm[Hg] [facility] Heart rate 2022-05-31 15:31:00 88 /min Unive [facility] Respiratory rate 2022-05-31 15:31:00 18 /min [facility] Oxygen saturation in Arterial blood by Pulse oximetry 2022-05-31 15:31:00 99 /min [facility] Body temperature 2022-05-31 15:27:00 36.78 Arianna [facility] Body height 2022-05-25 18:00:00 162.6 cm [facility] Body weight 2022-05-25 18:00:00 92.08 kg [facility] BMI 2022-05-25 18:00:00 34.84 kg/m2 [facility] BP Systolic 2024-10-12 09:26:00 106 mm[Hg] Tae Doherty BP Diastolic 2024-10-12 09:26:00 70 mm[Hg] Kyler phen F Chas Weight Measured 2024-10-12 09:26:00 207.00 pounds Chris F Chas Height Measured 2024-10-12 09:26:00 64.80 inches Chris F Chas Body Temperature 2024-10-12 09:26:00 98.30 degrees Chris F Chas Heart Rate 2024-10-12 09:26:00 84.00 /min Julee en F Chas Respiratory Rate 2024-10-12 09:26:00 17.00 /min Chris F Chas BP Systolic 2024-09-15 08:45:00 112 mm[Hg] Step hen F Chas BP Diastolic 2024-09-15 08:45:00 64 mm[Hg] Kyler phen F Chas Weight Measured 2024-09-15 08:45:00 209.00 pounds Chris F Chas Height Measured 2024-09-15 08:45:00 64.80 inches Chris F Chas Body Temperature 2024-09-15 08:45:00 97.50 degrees Chris F Chas Heart Rate 2024-09-15 08:45:00 102.00 /min Step hen F Chas Respiratory Rate 2024-09-15 08:45:00 18.00 /min Chris F Chas BP Systolic 2024-07-16 10:10:00 108 mm[Hg] Step hen F Chas BP Diastolic 2024-07-16 10:10:00 76 mm[Hg] Kyler phen F Chas Weight Measured 2024-07-16 10:10:00 205.80 pounds Chris F Chas Height Measured 2024-07-16 10:10:00 64.80 inches Chris F Chas Body Temperature 2024-07-16 10:10:00 98.40 degrees Chris F Chas Heart Rate 2024-07-16 10:10:00 108.00 /min Step hen F Chas Respiratory Rate 2024-07-16 10:10:00 16.00 /min Chris F Chas BP Systolic 2024-02-06 11:32:00 90 mm[Hg] Step [...] Heart Rate 2022-04-17 10:10:00 90.00 /min Julee en F Chas Respiratory Rate 2022-04-17 10:10:00 18.00 /min Chris F Chas BP Systolic 2022-01-17 14:48:00 Step hen F Chas BP Diastolic 2022-01-17 14:48:00 Kyler phen F Chas Weight Measured 2022-01-17 14:48:00 190.00 pounds Chris F Chas Height Measured 2022-01-17 14:48:00 64.80 inches Chris F Chas Body Temperature 2022-01-17 14:48:00 Chris F Chas Heart Rate 2022-01-17 14:48:00 Julee en F Chas Respiratory Rate 2022-01-17 14:48:00 Chris F Chas BP Systolic 2021-05-05 15:41:00 118 mm[Hg] BP [...] ECHO (TTE) COMPLETE 2024-01-09 19:48:50 Jina Felton [facility] HB ECG ROUTINE & RHYTHM STRIP 2024-01-01 20:20:13 Jina Felton [facility] REFERRAL- REQUEST/RESPONSE 2023-05-29 18:41:29 Doctor Unassigned, Weinert [facility] PHACOEMULSIFICATION OF CATARACT WITH INTRAOCULAR LENS IMPLANT 2022-05-31 16:49:00 Meche Lam [facility] PATIENT QUESTIONNAIRE 2022-05-31 05:01:00 Doctor Unassigned, Weinert [facility] ASSIGNMENT OF BENEFITS 2022-05-22 21:36:19 Doctor Unassigned, Weinert [facility] Plan of Care Planned Activity Planned Date Details Comments Source Goal Plan of Care Note [code = 71962-9] Goal Plan of Care Note [code = 49174-5] Goal Plan of Care Note [code = 75157-2] Goal Plan of Care Note [code = 02464-6] Goal Plan of Care Note [code = 62443-1] Goal Plan of Care Note [code = 19939-3] Goal Plan of Care Note [code = 67470-5] Goal Plan of Care Note [code = 95829-3] Goal Plan of Care Note [code = 47896-3] Goal Plan of Care Note [code = 78928-6] Goal Plan of Care Note [code = 14659-1] Goal Plan of Care Note [code = 66528-0] Goal Plan of Care Note [code = 95000-7] Goal Plan of Care Note [code = 38425-2] Goal Plan of Care Note [code = 80701-9] Goal Plan of Care Note [code = 51445-3] Goal Plan of Care Note [code = 94700-1] Goal Plan of Care Note [code = 30289-9] Goal Plan of Care Note [code = 65080-2] Goal Plan of Care Note [code = 22817-2] Goal Plan of Care Note [code = 85778-2] Goal Plan of Care Note [code = 61307-2] Goal Plan of Care Note [code = 58688-3] Goal Plan of Care Note [code = 45122-5] Goal Plan of Care Note [code = 33738-6] Goal Plan of Care Note [code = 18320-4] Goal Plan of Care Note [code = 89647-2] Goal Plan of Care Note [code = 34387-8] Goal Plan of Care Note [code = 02950-0] Goal Plan of Care Note [code = 43294-2] Goal Plan of Care Note [code = 54135-7] Goal Plan of Care Note [code = 37540-0] Goal Plan of Care Note [code = 81727-9] Goal Plan of Care Note [code = 67914-3] Goal Plan of Care Note [code = 02415-1] Goal Plan of Care Note [code = 97059-5] Goal Plan of Care Note [code = 12992-6] Goal Plan of Care Note [code = 14743-7] Goal Plan of Care Note [code = 34616-6] Goal Plan of Care Note [code = 42957-8] Goal Plan of Care Note [code = 04149-0] Goal Plan of Care Note [code = 82611-6] Goal Plan of Care Note [code = 48921-7] Goal Plan of Care Note [code = 34936-9] Goal Plan of Care Note [code = 29066-6] Goal Plan of Care Note [code = 95129-4] Goal Plan of Care Note [code = 65489-6] Goal Plan of Care Note [code = 07124-4] Goal Plan of Care Note [code = 66786-7] Goal Plan of Care Note [code = 49704-7] Encounters Start Date/Time End Date/Time Encounter Type Admission Type Attending Clinicians Care Facility Care Department Encounter ID Source 2020-12-18 11:16:09 Outpatient MECHE MEIER [facility] [id number] [facility] 2024-11-13 00:00:00 2024-11-13 00:00:00 Outpatient Visit [facility] [id number] Chris Doherty 2024-11-05 15:34:40 2024-11-05 15:34:40 Outpatient S[facility] [id number] Chris Doherty 2024-11-05 00:00:00 2024-11-05 00:00:00 Outpatient Visit [facility] [id number] Chris Doherty 2024-10-12 09:19:08 2024-10-12 09:19:08 Outpatient SFA [facility] [id number] Chris Doherty 2024-10-12 00:00:00 2024-10-12 00:00:00 Outpatient Visit [facility] [id number] Chris Doherty 2024-09-15 00:00:00 2024-09-15 00:00:00 Outpatient Visit S[facility] [id number] Chris Doherty 2024-09-08 18:34:23 2024-09-08 18:34:23 Outpatient SFA [facility] [id number] Chris Doherty 2024-09-08 00:00:00 2024-09-08 00:00:00 Outpatient Visit [facility] [id number] Chris Doherty 2024-07-16 10:03:15 2024-07-16 10:03:15 Outpatient SFA [facility] [id number] Chris Doherty 2024-07-16 00:00:00 2024-07-16 00:00:00 Outpatient Visit S[facility] [id number] hCris Doherty 2024-07-02 15:26:51 2024-07-02 15:26:51 Outpatient SFA [facility] [id number] Chris Doherty 2024-07-01 10:31:57 2024-07-01 10:31:57 Outpatient SFA [facility] [id number] Chris Doherty 2024-06-24 13:36:54 2024-06-24 13:36:54 Outpatient SFA [facility] [id number] Chris Doherty 2024 14:07:26 2024 14:07:26 Outpatient SFA [facility] [id number] Chris Doherty 2024-06-03 14:01:41 2024-06-03 14:01:41 Outpatient SFA [facility] [id number] Chris Doherty 2024-05-26 17:00:18 2024-05-26 17:00:18 Outpatient SFA [facility] [id number] Chris Brandt Chas 2024-05-13 00:00:00 2024-05-13 00:00:00 Outpatient Visit [facility] [id number] Chris Doherty 2024-04-23 16:02:04 2024-04-23 16:02:04 Outpatient [facility] [id number] Chris Doherty 2023-05-29 00:00:00 2024-04-04 02:24:16 Orders Only Doctor Unassigned, Weinert Doctor Unassigned, Weinert [facility] 840.114 350.1.13.10 4.2.7.2.686 [id number] [facility] 2024-03-30 18:20:01 2024-03-30 18:20:01 Outpatient SFA [facility] [id number] Chris Doherty 2024-02-13 00:00:00 2024-03-21 18:19:43 Patient Secure Jina Arita [facility] .840.114 350.1.13.10 4.2.7.2.686 [id number] [facility] 2024-03-12 00:00:00 2024-03-12 00:00:00 Outpatient Visit SFA [id number] Chris Doherty 2024-03-10 10:31:07 2024-03-10 10:31:07 Outpatient SFA [facility] [id number] Chris Doherty 2024-02-24 09:42:18 2024-02-24 09:42:18 Outpatient SFA [facility] [id number] Chris Doherty 2024-01-10 00:00:00 2024-02-15 18:19:41 Patient Secure Purnima Jina [facility] 1.2.840.114 350.1.13.10 4.2.7.2.686 [id number] [facility] 2024-02-14 10:29:00 2024-02-14 10:29:00 Outpatient SFA [facility] [id number] Chris Doherty 2024-02-06 11:22:04 2024-02-06 11:22:04 Outpatient SFA [facility] [id number] Chris Doherty 2024-02-06 00:00:00 2024-02-06 00:00:00 Outpatient Visit SFA [id number] Chris Doherty 2024-01-30 17:16:32 2024-01-30 17:16:32 Outpatient SFA [facility] [id number] Chris Doherty 2024-01-30 00:00:00 2024-01-30 00:00:00 Outpatient Visit S[facility] [id number] Chris Doherty 2024-01-28 10:06:30 2024-01-28 10:06:30 Outpatient SFA [facility] [id number] Chris Doherty 2024-01-27 17:00:07 2024-01-27 17:00:07 Outpatient SFA [facility] [id number] Chris Doherty 2024-01-19 13:13:17 2024-01-19 13:13:17 Outpatient SFA [facility] [id number] Chris Doherty 2024-01-10 11:10:54 2024-01-10 11:10:54 Outpatient SFA [facility] [id number] Chris Doherty 2024-01-10 00:00:00 2024-01-10 00:00:00 Outpatient Visit [facility] [id number] Chris Doherty 2024-01-09 13:00:00 2024-01-09 23:59:00 [id number] 2024-01-09 13:00:00 2024-01-09 23:59:00 Hospital Encounter Purnima [facility] 1.2.840.114 350.1.13.10 4.2.7.2.686 [id number] [facility] 2024-01-07 09:20:01 2024-01-07 09:20:01 Outpatient SFA [facility] [id number] Chris Doherty 2024-01-07 00:00:00 2024-01-07 00:00:00 Outpatient Visit [facility] [id number] Chris Doherty 2024-01-01 08:00:00 2024-01-01 23:59:00 [id number] 2024-01-01 08:00:00 2024-01-01 23:59:00 Hospital Encounter Purnima [facility] 1.2.840.114 350.1.13.10 4.2.7.2.686 [id number] [facility] 2024-01-01 13:40:00 2024-01-01 14:41:31 Office Visit Purnima Jina [facility] 1.2.840.114 350.1.13.10 4.2.7.2.686 [id number] [facility] 2023-10-14 11:30:58 2023-10-14 11:30:58 Outpatient SFA [facility] [id number] Chris Doherty 2023-10-14 00:00:00 2023-10-14 00:00:00 Outpatient Visit [facility]FA [id number] Chris Doherty 2023-09-11 13:51:34 2023-09-11 13:51:34 Outpatient SFA [facility] [id number] Chris Doherty 2023-09-11 00:00:00 2023-09-11 00:00:00 Outpatient Visit S[facility] [id number] Chris Doherty 2023-09-02 13:30:00 2023-09-02 13:30:00 Outpatient R COLLIN ORTEGA SHIWAN [facility] [id number] [facility] 2023-07-05 10:30:00 2023-07-05 10:30:00 Outpatient R COLLIN ORTEGA SHIWAN [facility] [id number] [facility] 2023-06-17 09:40:00 2023-06-17 09:40:00 Outpatient R PURNIMA JINA [facility] [id number] [facility] 2023-05-13 13:25:28 2023-05-13 13:25:28 Outpatient SFA [facility] [id number] Chris Doherty 2023-04-26 10:16:22 2023-04-26 10:16:22 Outpatient SFA [facility] [id number] Chris Doherty 2023-03-29 13:20:36 2023-03-29 13:20:36 Outpatient SFA [facility] [id number] Chris Doherty 2023-02-05 15:46:34 2023-02-05 15:46:34 Outpatient SFA [facility] [id number] Chris Doherty 2022-11-15 08:28:38 2022-11-15 08:28:38 Outpatient SFA [facility] [id number] Chris Doherty 2022-10-11 16:43:25 2022-10-11 16:43:25 Outpatient SFA [facility] [id number] Chris Doherty 2022-09-07 13:43:12 2022-09-07 13:43:12 Outpatient [facility] [id number] Chris Doherty 2022-09-04 14:30:07 2022-09-04 14:30:07 Outpatient [facility] [id number] Chris Doherty 2022-05-31 10:13:00 2022-05-31 13:09:00 Outpatient R MECHE LAM [facility] [id number] [facility] 2022-05-31 10:13:00 2022-05-31 13:09:00 Hospital Encounter Meche Lam [facility] 1.840.114 350.1.13.10 4.2.7.2.686 [id number] [facility] 2022-05-31 11:37:00 2022-05-31 12:12:00 Surgery Meche Lam [facility] 1..840.114 350.1.13.10 4.2.7.2.686 [id number] [facility] 2022-05-31 00:00:00 2022-05-31 00:00:00 Orders Only Doctor Unassigned, Weinert [facility] 1.2.840.114 350.1.13.10 4.2.7.2.686 [id number] [facility] 2022-05-29 10:43:07 2022-05-29 10:43:07 Outpatient SFA [facility] [id number] Chris Doherty 2022-05-22 00:00:00 2022-05-22 00:00:00 Orders Only Doctor Unassigned, Weinert [facility] 1.2.840.114 350.1.13.10 4.2.7.2.686 [id number] [facility] 2022-05-17 13:40:22 2022-05-17 13:40:22 Outpatient SFA [facility] [id number] Chris Doherty 2022-04-18 13:53:40 2022-04-18 13:53:40 Outpatient SFA [facility] [id number] Chris Doherty 2022-04-17 09:59:04 2022-04-17 09:59:04 Outpatient SFA [facility] [id number] Chris Doherty 2022-03-10 12:17:29 2022-03-10 12:17:29 Outpatient SFA [facility] [id number] Chris Doherty 2022-02-01 00:00:00 2022-02-01 00:00:00 Outpatient Visit [id number] 2021-10-04 00:00:00 2021-10-04 00:00:00 Outpatient Visit [id number] 2020-05-26 10:30:00 2020-05-26 12:59:00 Hospital Encounter Meche Lam [facility] 1.2.840.114 350.1.13.10 4.2.7.2.686 [id number] 2020-05-26 12:12:00 2020-05-26 12:48:00 Surgery [facility] 1.2.840.114 350.1.13.10 4.2.7.2.686 [id number] 2020-05-26 12:09:00 2020-05-26 12:37:00 Anesthesia Event EarlBradley [facility] 1.2.840.114 350.1.13.10 4.2.7.2.686 [id number] 2020-05-25 10:21:30 2020-05-25 10:36:30 Laboratory Only Only, Adc Test [facility] 1.2.840.114 350.1.13.10 4.2.7.2.686 [id number] 2020-05-25 10:15:00 2020-05-25 10:15:00 Outpatient MECHE MEIER [facility] [id number] [facility] 2020-05-19 12:11:02 2020-05-19 12:26:02 Clinical Psychiatrist Visit Pob, Adc Lab Main [facility] Profess[facility] Building 1.2.840.114 350.1.13.10 4.2.7.2.686 [id number] 2020-05-19 12:15:00 2020-05-19 12:15:00 Outpatient MECHE MEIER [facility] [id number] [facility] 2020-05-19 00:00:00 2020-05-19 00:00:00 Orders Only Doctor Unassigned, [facility] 1.2.840.114 350.1.13.10 4.2.7.2.686 [id number] 2019-12-08 10:14:00 2019-12-08 10:14:00 Outpatient Jn Soliz [facility]I [id number] [facility] Results Test Description Test Time Test Comments Results Result Co mments Source Chris Brandt AustinCULTURE, URINE, [id number] 00:00:00* Test Item Value Reference Range Interpretation Comme nts CULTURE, URINE, ROUTINE (jese t code = 630-4) SEE NOTE Chris DohertyCULTURE, URINE, [id number] 00:00:00* Test Item Value Reference Range Interpretation Comme nts CULTURE, URINE, ROUTINE (jese t code = 630-4) SEE NOTE Chris DohertyCOMPREHENSIVE METABOLIC [id number] 00:00:00* Test Item Value Reference Range Interpretation Comme nts GLUCOSE (test code = 2345-7) 257 mg/dL UREA NITROGEN (BUN) (test code = 3094-0) 23 mg/dL CREATININE (test code = 2160-0) 0.87 mg/dL EGFR (test code = 22749-6) 79 mL/min/1.73m2 BUN/CREATININE RATIO (test code = 3097-3) SEE NOTE: (calc) SODIUM (test code = 2951-2) 143 mmol/L POTASSIUM (test code = 2823-3) 3.8 mmol/L CHLORIDE (test code = 2075-0) 103 mmol/L CARBON DIOXIDE (test code = 2027-9) 29 mmol/L CALCIUM (test code = 62164-5) 8.8 mg/dL PROTEIN, TOTAL (test code = 2885-2) 6.3 g/dL ALBUMIN (test code = 1751-7) 3.8 g/dL GLOBULIN (test code = 68552-0) 2.5 g/dL(calc) ALBUMIN/GLOBULIN RATIO (test code = 1759-0) 1.5 (calc) BILIRUBIN, TOTAL (test code = 1975-2) 0.3 mg/dL ALKALINE PHOSPHATASE (test code = 6768-6) 66 U/L AST (test code = 1920-8) 9 U/L ALT (test code = 1742-6) 6 U/L Chris DohertyLIPID [id number] 00:00:00* Test Item Value Reference Range Interpretation Comme nts CHOLESTEROL, TOTAL (test cod e = 2093-3) 219 mg/dL HDL CHOLESTEROL (test code = 2085-9) 84 mg/dL TRIGLYCERIDES (test code = 2571-8) 181 mg/dL LDL-CHOLESTEROL (test code = 87001-2) 105 mg/dL(calc) CHOL/HDLC RATIO (test code = 9830-1) 2.6 (calc) NON HDL CHOLESTEROL (test code = 50216-3) 135 mg/dL(calc) Chris Brandt [facility] (INCLUDES DIFF/PLT)2024-09-16 00:00:00* Test Item Value Reference Range Interpretation Comme nts WHITE BLOOD CELL COUNT (test code = 6690-2) 8.7 Thousand/uL RED BLOOD CELL COUNT (test code = 789-8) 4.29 Million/uL HEMOGLOBIN (test code = 718-7) 13.4 g/dL HEMATOCRIT (test code = 4544-3) 42.9 % MCV (test code = 787-2) 100.0 fL MCH (test code = 785-6) 31.2 pg MCHC (test code = 786-4) 31.2 g/dL RDW (test code = 788-0) 12.4 % PLATELET COUNT (test code = 777-3) 301 Thousand/uL MPV (test code = 776-5) 10.1 fL ABSOLUTE NEUTROPHILS (test code = 751-8) 6725 cells/uL ABSOLUTE BAND NEUTROPHILS (test code = 02158-1) DNR cells/uL ABSOLUTE METAMYELOCYTES (jese t code = 72935-6) DNR cells/uL ABSOLUTE MYELOCYTES (test code = 94087-9) DNR cells/uL ABSOLUTE PROMYELOCYTES (test code = 64588-8) DNR cells/uL ABSOLUTE LYMPHOCYTES (test code = 731-0) 1601 cells/uL ABSOLUTE MONOCYTES (test cod e = 742-7) 331 cells/uL ABSOLUTE EOSINOPHILS (test code = 711-2) 26 cells/uL ABSOLUTE BASOPHILS (test cod e = 704-7) 17 cells/uL ABSOLUTE BLASTS (test code = 35823-1) DNR cells/uL ABSOLUTE NUCLEATED RBC (test code = 10678-6) DNR cells/uL NEUTROPHILS (test code = 770-8) 77.3 % BAND NEUTROPHILS (test code = 764-1) DNR % METAMYELOCYTES (test code = 740-1) DNR % MYELOCYTES (test code = 749-2) DNR % PROMYELOCYTES (test code = 783-1) DNR % LYMPHOCYTES (test code = 736-9) 18.4 % REACTIVE LYMPHOCYTES (test code = 85446-3) DNR % MONOCYTES (test code = 5905-5) 3.8 % EOSINOPHILS (test code = 713-8) 0.3 % BASOPHILS (test code = 706-2) 0.2 % BLASTS (test code = 709-6) DNR % NUCLEATED RBC (test code = 72913-6) DNR /100WBC COMMENT(S) (test code = 8251-1) DNR Chris DohertyHIV 1/2 ANTIGEN/ANTIBODY,FOURTH GENERATION [id number] 00:00:00* Test Item Value Reference Range Interpretation Comme nts HIV AG/AB, 4TH GEN (test cod e = 70047-5) NON-REACTIVE Chris Brandt AustinHEPATITIS PANEL, [id number] 00:00:00* Test Item Value Reference Range Interpretation Comme nts HEPATITIS A AB, TOTAL (test code = 93998-3) NON-REACTIVE HEPATITIS B SURFACE ANTIBODY QL (test code = 47138-5) NON-REACTIVE HEPATITIS B SURFACE ANTIGEN (test code = 5196-1) NON-REACTIVE CONFIRMATION (test code = 7905-3) DNR HEPATITIS B CORE AB TOTAL (t est code = 58724-6) NON-REACTIVE HEPATITIS C ANTIBODY (test c ode = 04331-3) NON-REACTIVE Chris DohertyCOMPREHENSIVE METABOLIC [id number] 00:00:00* Test Item Value Reference Range Interpretation Comme nts GLUCOSE (test code = 2345-7) 257 mg/dL UREA NITROGEN (BUN) (test code = 3094-0) 23 mg/dL CREATININE (test code = 2160-0) 0.87 mg/dL EGFR (test code = 30675-0) 79 mL/min/1.73m2 BUN/CREATININE RATIO (test code = 3097-3) SEE NOTE: (calc) SODIUM (test code = 2951-2) 143 mmol/L POTASSIUM (test code = 2823-3) 3.8 mmol/L CHLORIDE (test code = 2075-0) 103 mmol/L CARBON DIOXIDE (test code = 8-9) 29 mmol/L CALCIUM (test code = 38741-8) 8.8 mg/dL PROTEIN, TOTAL (test code = 2885-2) 6.3 g/dL ALBUMIN (test code = 1751-7) 3.8 g/dL GLOBULIN (test code = 52516-0) 2.5 g/dL(calc) ALBUMIN/GLOBULIN RATIO (test code = 1759-0) 1.5 (calc) BILIRUBIN, TOTAL (test code = 1975-2) 0.3 mg/dL ALKALINE PHOSPHATASE (test code = 6768-6) 66 U/L AST (test code = 1920-8) 9 U/L ALT (test code = 1742-6) 6 U/L Chris DohertyLIPID [id number] 00:00:00* Test Item Value Reference Range Interpretation Comme nts CHOLESTEROL, TOTAL (test cod e = 2093-3) 219 mg/dL HDL CHOLESTEROL (test code = 2085-9) 84 mg/dL TRIGLYCERIDES (test code = 2571-8) 181 mg/dL LDL-CHOLESTEROL (test code = 70706-8) 105 mg/dL(calc) CHOL/HDLC RATIO (test code = 9830-1) 2.6 (calc) NON HDL CHOLESTEROL (test code = 47496-2) 135 mg/dL(calc) Chris DohertyCBC (INCLUDES DIFF/PLT)2024-09-16 00:00:00* Test Item Value Reference Range Interpretation Comme nts WHITE BLOOD CELL COUNT (test code = 6690-2) 8.7 Thousand/uL RED BLOOD CELL COUNT (test code = 789-8) 4.29 Million/uL HEMOGLOBIN (test code = 718-7) 13.4 g/dL HEMATOCRIT (test code = 4544-3) 42.9 % MCV (test code = 787-2) 100.0 fL MCH (test code = 785-6) 31.2 pg MCHC (test code = 786-4) 31.2 g/dL RDW (test code = 788-0) 12.4 % PLATELET COUNT (test code = 777-3) 301 Thousand/uL MPV (test code = 776-5) 10.1 fL ABSOLUTE NEUTROPHILS (test code = 751-8) 6725 cells/uL ABSOLUTE BAND NEUTROPHILS (test code = 73529-2) DNR cells/uL ABSOLUTE METAMYELOCYTES (jese t code = 64190-9) DNR cells/uL ABSOLUTE MYELOCYTES (test code = 36137-5) DNR cells/uL ABSOLUTE PROMYELOCYTES (test code = 43985-6) DNR cells/uL ABSOLUTE LYMPHOCYTES (test code = 731-0) 1601 cells/uL ABSOLUTE MONOCYTES (test cod e = 742-7) 331 cells/uL ABSOLUTE EOSINOPHILS (test code = 711-2) 26 cells/uL ABSOLUTE BASOPHILS (test cod e = 704-7) 17 cells/uL ABSOLUTE BLASTS (test code = 24337-5) DNR cells/uL ABSOLUTE NUCLEATED RBC (test code = 70520-9) DNR cells/uL NEUTROPHILS (test code = 770-8) 77.3 % BAND NEUTROPHILS (test code = 764-1) DNR % METAMYELOCYTES (test code = 740-1) DNR % MYELOCYTES (test code = 749-2) DNR % PROMYELOCYTES (test code = 783-1) DNR % LYMPHOCYTES (test code = 736-9) 18.4 % REACTIVE LYMPHOCYTES (test code = 05204-7) DNR % MONOCYTES (test code = 5905-5) 3.8 % EOSINOPHILS (test code = 713-8) 0.3 % BASOPHILS (test code = 706-2) 0.2 % BLASTS (test code = 709-6) DNR % NUCLEATED RBC (test code = 71854-6) DNR /100WBC COMMENT(S) (test code = 8251-1) DNR Chris DohertyHIV 1/2 ANTIGEN/ANTIBODY,FOURTH GENERATION [id number] 00:00:00* Test Item Value Reference Range Interpretation Comme nts HIV AG/AB, 4TH GEN (test cod e = 75895-4) NON-REACTIVE Chris Brandt ChasHEPATITIS PANEL, [id number] 00:00:00* Test Item Value Reference Range Interpretation Comme nts HEPATITIS A AB, TOTAL (test code = 55961-8) NON-REACTIVE HEPATITIS B SURFACE ANTIBODY QL (test code = 07734-1) NON-REACTIVE HEPATITIS B SURFACE ANTIGEN (test code = 5196-1) NON-REACTIVE CONFIRMATION (test code = 7905-3) DNR HEPATITIS B CORE AB TOTAL (t est code = 18546-8) NON-REACTIVE HEPATITIS C ANTIBODY (test c ode = 44180-9) NON-REACTIVE Chris Brandt AustinCOMPREHENSIVE METABOLIC [id number] 00:00:00* Test Item Value Reference Range Interpretation Comme nts GLUCOSE (test code = 2345-7) 257 mg/dL UREA NITROGEN (BUN) (test code = 3094-0) 23 mg/dL CREATININE (test code = 2160-0) 0.87 mg/dL EGFR (test code = 97302-6) 79 mL/min/1.73m2 BUN/CREATININE RATIO (test code = 3097-3) SEE NOTE: (calc) SODIUM (test code = 2951-2) 143 mmol/L POTASSIUM (test code = 2823-3) 3.8 mmol/L CHLORIDE (test code = 2075-0) 103 mmol/L CARBON DIOXIDE (test code = 2027-9) 29 mmol/L CALCIUM (test code = 43692-3) 8.8 mg/dL PROTEIN, TOTAL (test code = 2885-2) 6.3 g/dL ALBUMIN (test code = 1751-7) 3.8 g/dL GLOBULIN (test code = 00795-2) 2.5 g/dL(calc) ALBUMIN/GLOBULIN RATIO (test code = 1759-0) 1.5 (calc) BILIRUBIN, TOTAL (test code = 1975-2) 0.3 mg/dL ALKALINE PHOSPHATASE (test code = 6768-6) 66 U/L AST (test code = 1920-8) 9 U/L ALT (test code = 1742-6) 6 U/L Chris DohertyLIPID [id number] 00:00:00* Test Item Value Reference Range Interpretation Comme nts CHOLESTEROL, TOTAL (test cod e = 2093-3) 219 mg/dL HDL CHOLESTEROL (test code = 2085-9) 84 mg/dL TRIGLYCERIDES (test code = 2571-8) 181 mg/dL LDL-CHOLESTEROL (test code = 53360-6) 105 mg/dL(calc) CHOL/HDLC RATIO (test code = 9830-1) 2.6 (calc) NON HDL CHOLESTEROL (test code = 99917-6) 135 mg/dL(calc) Chris DohertyCBC (INCLUDES DIFF/PLT)2024-09-16 00:00:00* Test Item Value Reference Range Interpretation Comme nts WHITE BLOOD CELL COUNT (test code = 6690-2) 8.7 Thousand/uL RED BLOOD CELL COUNT (test code = 789-8) 4.29 Million/uL HEMOGLOBIN (test code = 718-7) 13.4 g/dL HEMATOCRIT (test code = 4544-3) 42.9 % MCV (test code = 787-2) 100.0 fL MCH (test code = 785-6) 31.2 pg MCHC (test code = 786-4) 31.2 g/dL RDW (test code = 788-0) 12.4 % PLATELET COUNT (test code = 777-3) 301 Thousand/uL MPV (test code = 776-5) 10.1 fL ABSOLUTE NEUTROPHILS (test code = 751-8) 6725 cells/uL ABSOLUTE BAND NEUTROPHILS (test code = 65188-4) DNR cells/uL ABSOLUTE METAMYELOCYTES (jese t code = 27687-2) DNR cells/uL ABSOLUTE MYELOCYTES (test code = 65879-1) DNR cells/uL ABSOLUTE PROMYELOCYTES (test code = 30398-2) DNR cells/uL ABSOLUTE LYMPHOCYTES (test code = 731-0) 1601 cells/uL ABSOLUTE MONOCYTES (test cod e = 742-7) 331 cells/uL ABSOLUTE EOSINOPHILS (test code = 711-2) 26 cells/uL ABSOLUTE BASOPHILS (test cod e = 704-7) 17 cells/uL ABSOLUTE BLASTS (test code = 04262-2) DNR cells/uL ABSOLUTE NUCLEATED RBC (test code = 48415-6) DNR cells/uL NEUTROPHILS (test code = 770-8) 77.3 % BAND NEUTROPHILS (test code = 764-1) DNR % METAMYELOCYTES (test code = 740-1) DNR % MYELOCYTES (test code = 749-2) DNR % PROMYELOCYTES (test code = 783-1) DNR % LYMPHOCYTES (test code = 736-9) 18.4 % REACTIVE LYMPHOCYTES (test code = 64409-4) DNR % MONOCYTES (test code = 5905-5) 3.8 % EOSINOPHILS (test code = 713-8) 0.3 % BASOPHILS (test code = 706-2) 0.2 % BLASTS (test code = 709-6) DNR % NUCLEATED RBC (test code = 63386-4) DNR /100WBC COMMENT(S) (test code = 8251-1) DNR Hcris F AustinHIV 1/2 ANTIGEN/ANTIBODY,FOURTH GENERATION [id number] 00:00:00* Test Item Value Reference Range Interpretation Comme nts HIV AG/AB, 4TH GEN (test cod e = 43981-5) NON-REACTIVE Chris DohertyHEPATITIS PANEL, [id number] 00:00:00* Test Item Value Reference Range Interpretation Comme nts HEPATITIS A AB, TOTAL (test code = 84694-0) NON-REACTIVE HEPATITIS B SURFACE ANTIBODY QL (test code = 50019-9) NON-REACTIVE HEPATITIS B SURFACE ANTIGEN (test code = 5196-1) NON-REACTIVE CONFIRMATION (test code = 7905-3) DNR HEPATITIS B CORE AB TOTAL (t est code = 22592-7) NON-REACTIVE HEPATITIS C ANTIBODY (test c ode = 32750-6) NON-REACTIVE Chris DohertyRespiratory [id number] 00:00:00* Test Item Value Reference Range Interpretation Comme nts STAPHYLOCOCCUS AUREUS (test code = 20345-4P) Negative STREPTOCOCCUS PNEUMONIAE (te st code = 18214-6) Negative STREPTOCOCCUS PYOGENES (GROU P A) (test code = 896476-1) Negative ADENOVIRUS (test code = 03276-4) Negative SARS-COV-2 (test code = 14621-4) Negative ENTEROVIRUS D68 (test code = 30666-0) Negative PARAINFLUENZA 1-3 (test code = ?19954-7) Negative RHINOVIRUS/ENTEROVIRUS (test code = 7993-9) Negative CORONAVIRUS (229E) (test cod e = 49145-9) Negative CORONAVIRUS (HKU1) (test cod e = 24900-6) Negative CORONAVIRUS (NL63) (test cod e = 62098-3) Negative CORONAVIRUS (OC43) (test cod e = 56229-0) Negative HUMAN METAPNEUMOVIRUS A/B (t est code = 53910-8) Negative INFLUENZA A (test code = 13123-8) Negative INFLUENZA B (test code = 77762-6) Negative KLEBSIELLA PNEUMONIAE (test code = 14800-5D) Negative RSV A/RSV B (test code = 12439-5A) Negative BORDETELLA PARAPERTUSSIS (te st code = 60225-8) Negative BORDETELLA PERTUSSIS (test c ode = 01692-7) Negative CHLAMYDIA PNEUMONIAE (test c ode = 09012-0) Negative HAEMOPHILUS INFLUENZAE (test code = 46250-9) Negative MORAXELLA CATARRHALIS (test code = 33420-6) Negative MYCOPLASMA PNEUMONIAE (test code = 14126-7) Negative Chris Brandt GenoaCBC (INCLUDES DIFF/PLT)2024-07-17 00:00:00* Test Item Value Reference Range Interpretation Comme nts WHITE BLOOD CELL COUNT (test code = 6690-2) 10.3 Thousand/uL RED BLOOD CELL COUNT (test code = 789-8) 4.70 Million/uL HEMOGLOBIN (test code = 718-7) 14.5 g/dL HEMATOCRIT (test code = 4544-3) 46.0 % MCV (test code = 787-2) 97.9 fL MCH (test code = 785-6) 30.9 pg MCHC (test code = 786-4) 31.5 g/dL RDW (test code = 788-0) 11.3 % PLATELET COUNT (test code = 777-3) 267 Thousand/uL MPV (test code = 776-5) 10.2 fL ABSOLUTE NEUTROPHILS (test code = 751-8) 8271 cells/uL ABSOLUTE BAND NEUTROPHILS (test code = 76483-7) DNR cells/uL ABSOLUTE METAMYELOCYTES (test code = 78524-5) DNR cells/uL ABSOLUTE MYELOCYTES (test code = 22521-8) DNR cells/uL ABSOLUTE PROMYELOCYTES (test code = 66673-6) DNR cells/uL ABSOLUTE LYMPHOCYTES (test code = 731-0) 1700 cells/uL ABSOLUTE MONOCYTES (test code = 742-7) 278 cells/uL ABSOLUTE EOSINOPHILS (test code = 711-2) 10 cells/uL ABSOLUTE BASOPHILS (test code = 704-7) 41 cells/uL ABSOLUTE BLASTS (test code = 23750-2) DNR cells/uL ABSOLUTE NUCLEATED RBC (test code = 80266-2) DNR cells/uL NEUTROPHILS (test code = 770-8) 80.3 % BAND NEUTROPHILS (test code = 764-1) DNR % METAMYELOCYTES (test code = 740-1) DNR % MYELOCYTES (test code = 749-2) DNR % PROMYELOCYTES (test code = 783-1) DNR % LYMPHOCYTES (test code = 736-9) 16.5 % REACTIVE LYMPHOCYTES (test code = 51140-7) DNR % MONOCYTES (test code = 5905-5) 2.7 % EOSINOPHILS (test code = 713-8) 0.1 % BASOPHILS (test code = 706-2) 0.4 % BLASTS (test code = 709-6) DNR % NUCLEATED RBC (test code = 39266-9) DNR /100WBC COMMENT(S) (test code = 8251-1) DNR Chris DohertyCOMPREHENSIVE METABOLIC [id number] 00:00:00* Test Item Value Reference Range Interpretation Comme nts GLUCOSE (test code = 2345-7) 151 mg/dL UREA NITROGEN (BUN) (test code = 3094-0) 20 mg/dL CREATININE (test code = 2160-0) 0.85 mg/dL EGFR (test code = 20435-7) 81 mL/min/1.73m2 BUN/CREATININE RATIO (test code = 3097-3) SEE NOTE: (calc) SODIUM (test code = 2951-2) 140 mmol/L POTASSIUM (test code = 2823-3) 4.6 mmol/L CHLORIDE (test code = 2075-0) 102 mmol/L CARBON DIOXIDE (test code = 2027-9) 26 mmol/L CALCIUM (test code = 62638-1) 9.1 mg/dL PROTEIN, TOTAL (test code = 2885-2) 6.6 g/dL ALBUMIN (test code = 1751-7) 4.0 g/dL GLOBULIN (test code = 92734-7) 2.6 g/dL(calc) ALBUMIN/GLOBULIN RATIO (test code = 1759-0) 1.5 (calc) BILIRUBIN, TOTAL (test code = 1975-2) 0.4 mg/dL ALKALINE PHOSPHATASE (test code = 6768-6) 69 U/L AST (test code = 1920-8) 14 U/L ALT (test code = 1742-6) 11 U/L Chris DohertyHEMOGLOBIN [id number] 00:00:00* Test Item Value Reference Range Interpretation Comme nts HEMOGLOBIN A1c (test code = 4548-4) 5.7 % Chris DohertyLIPID [id number] 00:00:00* Test Item Value Reference Range Interpretation Comme nts CHOLESTEROL, TOTAL (test cod e = 2093-3) 261 mg/dL HDL CHOLESTEROL (test code = 2085-9) 96 mg/dL TRIGLYCERIDES (test code = 2571-8) 114 mg/dL LDL-CHOLESTEROL (test code = 17376-1) 142 mg/dL(calc) CHOL/HDLC RATIO (test code = 9830-1) 2.7 (calc) NON HDL CHOLESTEROL (test code = 11004-8) 165 mg/dL(calc) Chris Brandt AustinCBC (INCLUDES DIFF/PLT)2024-07-17 00:00:00* Test Item Value Reference Range Interpretation Comme nts WHITE BLOOD CELL COUNT (test code = 6690-2) 10.3 Thousand/uL RED BLOOD CELL COUNT (test code = 789-8) 4.70 Million/uL HEMOGLOBIN (test code = 718-7) 14.5 g/dL HEMATOCRIT (test code = 4544-3) 46.0 % MCV (test code = 787-2) 97.9 fL MCH (test code = 785-6) 30.9 pg MCHC (test code = 786-4) 31.5 g/dL RDW (test code = 788-0) 11.3 % PLATELET COUNT (test code = 777-3) 267 Thousand/uL MPV (test code = 776-5) 10.2 fL ABSOLUTE NEUTROPHILS (test code = 751-8) 8271 cells/uL ABSOLUTE BAND NEUTROPHILS (test code = 28518-5) DNR cells/uL ABSOLUTE METAMYELOCYTES (test code = 74223-1) DNR cells/uL ABSOLUTE MYELOCYTES (test code = 45606-8) DNR cells/uL ABSOLUTE PROMYELOCYTES (test code = 04289-6) DNR cells/uL ABSOLUTE LYMPHOCYTES (test code = 731-0) 1700 cells/uL ABSOLUTE MONOCYTES (test code = 742-7) 278 cells/uL ABSOLUTE EOSINOPHILS (test code = 711-2) 10 cells/uL ABSOLUTE BASOPHILS (test code = 704-7) 41 cells/uL ABSOLUTE BLASTS (test code = 52086-6) DNR cells/uL ABSOLUTE NUCLEATED RBC (test code = 44492-6) DNR cells/uL NEUTROPHILS (test code = 770-8) 80.3 % BAND NEUTROPHILS (test code = 764-1) DNR % METAMYELOCYTES (test code = 740-1) DNR % MYELOCYTES (test code = 749-2) DNR % PROMYELOCYTES (test code = 783-1) DNR % LYMPHOCYTES (test code = 736-9) 16.5 % REACTIVE LYMPHOCYTES (test code = 84418-9) DNR % MONOCYTES (test code = 5905-5) 2.7 % EOSINOPHILS (test code = 713-8) 0.1 % BASOPHILS (test code = 706-2) 0.4 % BLASTS (test code = 709-6) DNR % NUCLEATED RBC (test code = 57639-8) DNR /100WBC COMMENT(S) (test code = 8251-1) DNR Chris Brandt AustinRespiratory [id number] 00:00:00* Test Item Value Reference Range Interpretation Comme nts STAPHYLOCOCCUS AUREUS (test code = 99053-3R) Negative STREPTOCOCCUS PNEUMONIAE (te st code = 46054-3) Negative STREPTOCOCCUS PYOGENES (GROU P A) (test code = 059151-5) Negative ADENOVIRUS (test code = 49879-7) Negative SARS-COV-2 (test code = 69937-7) Negative ENTEROVIRUS D68 (test code = 78329-7) Negative PARAINFLUENZA 1-3 (test code = ?79485-7) Negative RHINOVIRUS/ENTEROVIRUS (test code = 7993-9) Negative CORONAVIRUS (229E) (test cod e = 38680-4) Negative CORONAVIRUS (HKU1) (test cod e = 89785-2) Negative CORONAVIRUS (NL63) (test cod e = 02685-6) Negative CORONAVIRUS (OC43) (test cod e = 48277-5) Negative HUMAN METAPNEUMOVIRUS A/B (t est code = 62934-5) Negative INFLUENZA A (test code = 02465-6) Negative INFLUENZA B (test code = 08057-5) Negative KLEBSIELLA PNEUMONIAE (test code = 72764-4H) Negative RSV A/RSV B (test code = 01971-4P) Negative BORDETELLA PARAPERTUSSIS (te st code = 36149-0) Negative BORDETELLA PERTUSSIS (test c ode = 29445-7) Negative CHLAMYDIA PNEUMONIAE (test c ode = 50499-9) Negative HAEMOPHILUS INFLUENZAE (test code = 48892-8) Negative MORAXELLA CATARRHALIS (test code = 74262-3) Negative MYCOPLASMA PNEUMONIAE (test code = 32206-9) Negative Chris DohertyCOMPREHENSIVE METABOLIC [id number] 00:00:00* Test Item Value Reference Range Interpretation Comme nts GLUCOSE (test code = 2345-7) 151 mg/dL UREA NITROGEN (BUN) (test code = 3094-0) 20 mg/dL CREATININE (test code = 2160-0) 0.85 mg/dL EGFR (test code = 06185-1) 81 mL/min/1.73m2 BUN/CREATININE RATIO (test code = 3097-3) SEE NOTE: (calc) SODIUM (test code = 2951-2) 140 mmol/L POTASSIUM (test code = 2823-3) 4.6 mmol/L CHLORIDE (test code = 2075-0) 102 mmol/L CARBON DIOXIDE (test code = 2027-9) 26 mmol/L CALCIUM (test code = 41918-9) 9.1 mg/dL PROTEIN, TOTAL (test code = 2885-2) 6.6 g/dL ALBUMIN (test code = 1751-7) 4.0 g/dL GLOBULIN (test code = 94221-8) 2.6 g/dL(calc) ALBUMIN/GLOBULIN RATIO (test code = 1759-0) 1.5 (calc) BILIRUBIN, TOTAL (test code = 1975-2) 0.4 mg/dL ALKALINE PHOSPHATASE (test code = 6768-6) 69 U/L AST (test code = 1920-8) 14 U/L ALT (test code = 1742-6) 11 U/L Chris DohertyHEMOGLOBIN [id number] 00:00:00* Test Item Value Reference Range Interpretation Comme nts HEMOGLOBIN A1c (test code = 4548-4) 5.7 % Chris DohertyLIPID [id number] 00:00:00* Test Item Value Reference Range Interpretation Comme nts CHOLESTEROL, TOTAL (test cod e = 2093-3) 261 mg/dL HDL CHOLESTEROL (test code = 2085-9) 96 mg/dL TRIGLYCERIDES (test code = 2571-8) 114 mg/dL LDL-CHOLESTEROL (test code = 45932-1) 142 mg/dL(calc) CHOL/HDLC RATIO (test code = 9830-1) 2.7 (calc) NON HDL CHOLESTEROL (test code = 55713-4) 165 mg/dL(calc) Chris DohertyRespiratory [id number] 00:00:00* Test Item Value Reference Range Interpretation Comme nts STAPHYLOCOCCUS AUREUS (test code = 87628-2L) Negative STREPTOCOCCUS PNEUMONIAE (te st code = 73454-5) Negative STREPTOCOCCUS PYOGENES (GROU P A) (test code = 368265-3) Negative ADENOVIRUS (test code = 43861-7) Negative SARS-COV-2 (test code = 99182-1) Negative ENTEROVIRUS D68 (test code = 15801-3) Negative PARAINFLUENZA 1-3 (test code = ?18271-4) Negative RHINOVIRUS/ENTEROVIRUS (test code = 7993-9) Negative CORONAVIRUS (229E) (test cod e = 04558-3) Negative CORONAVIRUS (HKU1) (test cod e = 53654-0) Negative CORONAVIRUS (NL63) (test cod e = 62856-7) Negative CORONAVIRUS (OC43) (test cod e = 22220-0) Negative HUMAN METAPNEUMOVIRUS A/B (t est code = 28449-3) Negative INFLUENZA A (test code = 55834-3) Negative INFLUENZA B (test code = 52282-6) Negative KLEBSIELLA PNEUMONIAE (test code = 98887-6X) Negative RSV A/RSV B (test code = 64889-8C) Negative BORDETELLA PARAPERTUSSIS (te st code = 07261-9) Negative BORDETELLA PERTUSSIS (test c ode = 09516-9) Negative CHLAMYDIA PNEUMONIAE (test c ode = 87125-5) Negative HAEMOPHILUS INFLUENZAE (test code = 09304-0) Negative MORAXELLA CATARRHALIS (test code = 33853-8) Negative MYCOPLASMA PNEUMONIAE (test code = 99383-1) Negative Chris DohertyCBC (INCLUDES DIFF/PLT)2024-07-17 00:00:00* Test Item Value Reference Range Interpretation Comme nts WHITE BLOOD CELL COUNT (test code = 6690-2) 10.3 Thousand/uL RED BLOOD CELL COUNT (test code = 789-8) 4.70 Million/uL HEMOGLOBIN (test code = 718-7) 14.5 g/dL HEMATOCRIT (test code = 4544-3) 46.0 % MCV (test code = 787-2) 97.9 fL MCH (test code = 785-6) 30.9 pg MCHC (test code = 786-4) 31.5 g/dL RDW (test code = 788-0) 11.3 % PLATELET COUNT (test code = 777-3) 267 Thousand/uL MPV (test code = 776-5) 10.2 fL ABSOLUTE NEUTROPHILS (test code = 751-8) 8271 cells/uL ABSOLUTE BAND NEUTROPHILS (test code = 17641-0) DNR cells/uL ABSOLUTE METAMYELOCYTES (test code = 70270-6) DNR cells/uL ABSOLUTE MYELOCYTES (test code = 41553-5) DNR cells/uL ABSOLUTE PROMYELOCYTES (test code = 43579-4) DNR cells/uL ABSOLUTE LYMPHOCYTES (test code = 731-0) 1700 cells/uL ABSOLUTE MONOCYTES (test code = 742-7) 278 cells/uL ABSOLUTE EOSINOPHILS (test code = 711-2) 10 cells/uL ABSOLUTE BASOPHILS (test code = 704-7) 41 cells/uL ABSOLUTE BLASTS (test code = 47553-9) DNR cells/uL ABSOLUTE NUCLEATED RBC (test code = 88432-5) DNR cells/uL NEUTROPHILS (test code = 770-8) 80.3 % BAND NEUTROPHILS (test code = 764-1) DNR % METAMYELOCYTES (test code = 740-1) DNR % MYELOCYTES (test code = 749-2) DNR % PROMYELOCYTES (test code = 783-1) DNR % LYMPHOCYTES (test code = 736-9) 16.5 % REACTIVE LYMPHOCYTES (test code = 60925-3) DNR % MONOCYTES (test code = 5905-5) 2.7 % EOSINOPHILS (test code = 713-8) 0.1 % BASOPHILS (test code = 706-2) 0.4 % BLASTS (test code = 709-6) DNR % NUCLEATED RBC (test code = 17617-1) DNR /100WBC COMMENT(S) (test code = 8251-1) DNR Chris F AustinCOMPREHENSIVE METABOLIC [id number] 00:00:00* Test Item Value Reference Range Interpretation Comme nts GLUCOSE (test code = 2345-7) 151 mg/dL UREA NITROGEN (BUN) (test code = 3094-0) 20 mg/dL CREATININE (test code = 2160-0) 0.85 mg/dL EGFR (test code = 34600-4) 81 mL/min/1.73m2 BUN/CREATININE RATIO (test code = 3097-3) SEE NOTE: (calc) SODIUM (test code = 2951-2) 140 mmol/L POTASSIUM (test code = 2823-3) 4.6 mmol/L CHLORIDE (test code = 2075-0) 102 mmol/L CARBON DIOXIDE (test code = 2027-9) 26 mmol/L CALCIUM (test code = 84387-3) 9.1 mg/dL PROTEIN, TOTAL (test code = 2885-2) 6.6 g/dL ALBUMIN (test code = 1751-7) 4.0 g/dL GLOBULIN (test code = 45349-3) 2.6 g/dL(calc) ALBUMIN/GLOBULIN RATIO (test code = 1759-0) 1.5 (calc) BILIRUBIN, TOTAL (test code = 1975-2) 0.4 mg/dL ALKALINE PHOSPHATASE (test code = 6768-6) 69 U/L AST (test code = 1920-8) 14 U/L ALT (test code = 1742-6) 11 U/L Chris DohertyHEMOGLOBIN [id number] 00:00:00* Test Item Value Reference Range Interpretation Comme [facility] HEMOGLOBIN A1c (test code = 4548-4) 5.7 % Chris DohertyLIPID [id number] 00:00:00* Test Item Value Reference Range Interpretation Comme nts CHOLESTEROL, TOTAL (test cod e = 2093-3) 261 mg/dL HDL CHOLESTEROL (test code = 2085-9) 96 mg/dL TRIGLYCERIDES (test code = 2571-8) 114 mg/dL LDL-CHOLESTEROL (test code = 52383-2) 142 mg/dL(calc) CHOL/HDLC RATIO (test code = 9830-1) 2.7 (calc) NON HDL CHOLESTEROL (test code = 11546-8) 165 mg/dL(calc) Chris DohertyRespiratory [id number] 00:00:00* Test Item Value Reference Range Interpretation Comme nts STAPHYLOCOCCUS AUREUS (test code = 89335-5S) Negative STREPTOCOCCUS PNEUMONIAE (te st code = 03882-5) Negative STREPTOCOCCUS PYOGENES (GROU P A) (test code = 061139-7) Negative ADENOVIRUS (test code = 09178-5) Negative SARS-COV-2 (test code = 15011-1) Negative ENTEROVIRUS D68 (test code = 14336-7) Negative PARAINFLUENZA 1-3 (test code = ?71307-8) Negative RHINOVIRUS/ENTEROVIRUS (test code = 7993-9) Negative CORONAVIRUS (229E) (test cod e = 84404-5) Negative CORONAVIRUS (HKU1) (test cod e = 70163-8) Negative CORONAVIRUS (NL63) (test cod e = 30771-6) Negative CORONAVIRUS (OC43) (test cod e = 09217-8) Negative HUMAN METAPNEUMOVIRUS A/B (t est code = 74042-6) Negative INFLUENZA A (test code = 38273-0) Negative INFLUENZA B (test code = 92715-7) Negative KLEBSIELLA PNEUMONIAE (test code = 32538-1L) Negative RSV A/RSV B (test code = 92680-5R) Negative BORDETELLA PARAPERTUSSIS (te st code = 61612-8) Negative BORDETELLA PERTUSSIS (test c ode = 76243-3) Negative CHLAMYDIA PNEUMONIAE (test c ode = 11200-0) Negative HAEMOPHILUS INFLUENZAE (test code = 84874-2) Negative MORAXELLA CATARRHALIS (test code = 33033-8) Negative MYCOPLASMA PNEUMONIAE (test code = 43770-9) Negative Chris DohertyCBC (INCLUDES DIFF/PLT)2024-07-17 00:00:00* Test Item Value Reference Range Interpretation Comme nts WHITE BLOOD CELL COUNT (test code = 6690-2) 10.3 Thousand/uL RED BLOOD CELL COUNT (test code = 789-8) 4.70 Million/uL HEMOGLOBIN (test code = 718-7) 14.5 g/dL HEMATOCRIT (test code = 4544-3) 46.0 % MCV (test code = 787-2) 97.9 fL MCH (test code = 785-6) 30.9 pg MCHC (test code = 786-4) 31.5 g/dL RDW (test code = 788-0) 11.3 % PLATELET COUNT (test code = 777-3) 267 Thousand/uL MPV (test code = 776-5) 10.2 fL ABSOLUTE NEUTROPHILS (test code = 751-8) 8271 cells/uL ABSOLUTE BAND NEUTROPHILS (test code = 26511-4) DNR cells/uL ABSOLUTE METAMYELOCYTES (test code = 76143-6) DNR cells/uL ABSOLUTE MYELOCYTES (test code = 48007-6) DNR cells/uL ABSOLUTE PROMYELOCYTES (test code = 33451-8) DNR cells/uL ABSOLUTE LYMPHOCYTES (test code = 731-0) 1700 cells/uL ABSOLUTE MONOCYTES (test code = 742-7) 278 cells/uL ABSOLUTE EOSINOPHILS (test code = 711-2) 10 cells/uL ABSOLUTE BASOPHILS (test code = 704-7) 41 cells/uL ABSOLUTE BLASTS (test code = 72946-0) DNR cells/uL ABSOLUTE NUCLEATED RBC (test code = 05658-8) DNR cells/uL NEUTROPHILS (test code = 770-8) 80.3 % BAND NEUTROPHILS (test code = 764-1) DNR % METAMYELOCYTES (test code = 740-1) DNR % MYELOCYTES (test code = 749-2) DNR % PROMYELOCYTES (test code = 783-1) DNR % LYMPHOCYTES (test code = 736-9) 16.5 % REACTIVE LYMPHOCYTES (test code = 09872-9) DNR % MONOCYTES (test code = 5905-5) 2.7 % EOSINOPHILS (test code = 713-8) 0.1 % BASOPHILS (test code = 706-2) 0.4 % BLASTS (test code = 709-6) DNR % NUCLEATED RBC (test code = 41930-4) DNR /100WBC COMMENT(S) (test code = 8251-1) DNR Chris DohertyCOMPREHENSIVE METABOLIC [id number] 00:00:00* Test Item Value Reference Range Interpretation Comme nts GLUCOSE (test code = 2345-7) 151 mg/dL UREA NITROGEN (BUN) (test code = 3094-0) 20 mg/dL CREATININE (test code = 2160-0) 0.85 mg/dL EGFR (test code = 46057-4) 81 mL/min/1.73m2 BUN/CREATININE RATIO (test code = 3097-3) SEE NOTE: (calc) SODIUM (test code = 2951-2) 140 mmol/L POTASSIUM (test code = 2823-3) 4.6 mmol/L CHLORIDE (test code = 2075-0) 102 mmol/L CARBON DIOXIDE (test code = 2027-9) 26 mmol/L CALCIUM (test code = 87854-9) 9.1 mg/dL PROTEIN, TOTAL (test code = 2885-2) 6.6 g/dL ALBUMIN (test code = 1751-7) 4.0 g/dL GLOBULIN (test code = 93685-1) 2.6 g/dL(calc) ALBUMIN/GLOBULIN RATIO (test code = 1759-0) 1.5 (calc) BILIRUBIN, TOTAL (test code = 1975-2) 0.4 mg/dL ALKALINE PHOSPHATASE (test code = 6768-6) 69 U/L AST (test code = 1920-8) 14 U/L ALT (test code = 1742-6) 11 U/L Chris DohertyHEMOGLOBIN [id number] 00:00:00* Test Item Value Reference Range Interpretation Comme ld HEMOGLOBIN A1c (test code = 4548-4) 5.7 % Chris DohertyLIPID [id number] 00:00:00* Test Item Value Reference Range Interpretation Comme nts CHOLESTEROL, TOTAL (test cod e = 2093-3) 261 mg/dL HDL CHOLESTEROL (test code = 2085-9) 96 mg/dL TRIGLYCERIDES (test code = 2571-8) 114 mg/dL LDL-CHOLESTEROL (test code = 51252-2) 142 mg/dL(calc) CHOL/HDLC RATIO (test code = 9830-1) 2.7 (calc) NON HDL CHOLESTEROL (test code = 19282-7) 165 mg/dL(calc) Chris DohertyRespiratory [id number] 00:00:00* Test Item Value Reference Range Interpretation Comme nts STAPHYLOCOCCUS AUREUS (test code = 56721-2I) Negative STREPTOCOCCUS PNEUMONIAE (te st code = 18432-7) Negative STREPTOCOCCUS PYOGENES (GROU P A) (test code = 035745-0) Negative ADENOVIRUS (test code = 98851-5) Negative SARS-COV-2 (test code = 78799-1) Negative ENTEROVIRUS D68 (test code = 57696-1) Negative PARAINFLUENZA 1-3 (test code = ?99914-4) Negative RHINOVIRUS/ENTEROVIRUS (test code = 7993-9) Negative CORONAVIRUS (229E) (test cod e = 05581-4) Negative CORONAVIRUS (HKU1) (test cod e = 74367-0) Negative CORONAVIRUS (NL63) (test cod e = 75725-9) Negative CORONAVIRUS (OC43) (test cod e = 05621-4) Negative HUMAN METAPNEUMOVIRUS A/B (t est code = 10753-9) Negative INFLUENZA A (test code = 86901-3) Negative INFLUENZA B (test code = 45219-5) Negative KLEBSIELLA PNEUMONIAE (test code = 76796-6B) Negative RSV A/RSV B (test code = 67413-2Y) Negative BORDETELLA PARAPERTUSSIS (te st code = 34499-6) Negative BORDETELLA PERTUSSIS (test c ode = 79322-2) Negative CHLAMYDIA PNEUMONIAE (test c ode = 12776-4) Negative HAEMOPHILUS INFLUENZAE (test code = 51210-3) Negative MORAXELLA CATARRHALIS (test code = 61122-3) Negative MYCOPLASMA PNEUMONIAE (test code = 30724-5) Negative Chris F GenoaCBC (INCLUDES DIFF/PLT)2024-07-17 00:00:00* Test Item Value Reference Range Interpretation Comme nts WHITE BLOOD CELL COUNT (test code = 6690-2) 10.3 Thousand/uL RED BLOOD CELL COUNT (test code = 789-8) 4.70 Million/uL HEMOGLOBIN (test code = 718-7) 14.5 g/dL HEMATOCRIT (test code = 4544-3) 46.0 % MCV (test code = 787-2) 97.9 fL MCH (test code = 785-6) 30.9 pg MCHC (test code = 786-4) 31.5 g/dL RDW (test code = 788-0) 11.3 % PLATELET COUNT (test code = 777-3) 267 Thousand/uL MPV (test code = 776-5) 10.2 fL ABSOLUTE NEUTROPHILS (test code = 751-8) 8271 cells/uL ABSOLUTE BAND NEUTROPHILS (test code = 84645-9) DNR cells/uL ABSOLUTE METAMYELOCYTES (test code = 00824-4) DNR cells/uL ABSOLUTE MYELOCYTES (test code = 22600-4) DNR cells/uL ABSOLUTE PROMYELOCYTES (test code = 47041-1) DNR cells/uL ABSOLUTE LYMPHOCYTES (test code = 731-0) 1700 cells/uL ABSOLUTE MONOCYTES (test code = 742-7) 278 cells/uL ABSOLUTE EOSINOPHILS (test code = 711-2) 10 cells/uL ABSOLUTE BASOPHILS (test code = 704-7) 41 cells/uL ABSOLUTE BLASTS (test code = 69472-4) DNR cells/uL ABSOLUTE NUCLEATED RBC (test code = 86929-9) DNR cells/uL NEUTROPHILS (test code = 770-8) 80.3 % BAND NEUTROPHILS (test code = 764-1) DNR % METAMYELOCYTES (test code = 740-1) DNR % MYELOCYTES (test code = 749-2) DNR % PROMYELOCYTES (test code = 783-1) DNR % LYMPHOCYTES (test code = 736-9) 16.5 % REACTIVE LYMPHOCYTES (test code = 63751-7) DNR % MONOCYTES (test code = 5905-5) 2.7 % EOSINOPHILS (test code = 713-8) 0.1 % BASOPHILS (test code = 706-2) 0.4 % BLASTS (test code = 709-6) DNR % NUCLEATED RBC (test code = 67252-7) DNR /100WBC COMMENT(S) (test code = 8251-1) DNR Chris F AustinCOMPREHENSIVE METABOLIC [id number] 00:00:00* Test Item Value Reference Range Interpretation Comme nts GLUCOSE (test code = 2345-7) 151 mg/dL UREA NITROGEN (BUN) (test code = 3094-0) 20 mg/dL CREATININE (test code = 2160-0) 0.85 mg/dL EGFR (test code = 31603-2) 81 mL/min/1.73m2 BUN/CREATININE RATIO (test code = 3097-3) SEE NOTE: (calc) SODIUM (test code = 2951-2) 140 mmol/L POTASSIUM (test code = 2823-3) 4.6 mmol/L CHLORIDE (test code = 2075-0) 102 mmol/L CARBON DIOXIDE (test code = 2027-9) 26 mmol/L CALCIUM (test code = 93744-2) 9.1 mg/dL PROTEIN, TOTAL (test code = 2885-2) 6.6 g/dL ALBUMIN (test code = 1751-7) 4.0 g/dL GLOBULIN (test code = 43166-7) 2.6 g/dL(calc) ALBUMIN/GLOBULIN RATIO (test code = 1759-0) 1.5 (calc) BILIRUBIN, TOTAL (test code = 1975-2) 0.4 mg/dL ALKALINE PHOSPHATASE (test code = 6768-6) 69 U/L AST (test code = 1920-8) 14 U/L ALT (test code = 1742-6) 11 U/L Chris DohertyHEMOGLOBIN [id number] 00:00:00* Test Item Value Reference Range Interpretation Comme [facility] HEMOGLOBIN A1c (test code = 4548-4) 5.7 % Chris DohertyLIPID [id number] 00:00:00* Test Item Value Reference Range Interpretation Comme [facility] CHOLESTEROL, TOTAL (test cod e = 2093-3) 261 mg/dL HDL CHOLESTEROL (test code = 2085-9) 96 mg/dL TRIGLYCERIDES (test code = 2571-8) 114 mg/dL LDL-CHOLESTEROL (test code = 60584-3) 142 mg/dL(calc) CHOL/HDLC RATIO (test code = 9830-1) 2.7 (calc) NON HDL CHOLESTEROL (test code = 03241-3) 165 mg/dL(calc) Chris DohertyTransthoracic echo (TTE)2024-01-09 22:06:06* Test Item Value Reference Range Interpretation Comme nts Height (test code = 6993628788) 64 in Weight (test code = 3974574954) 223 lbs Systolic BP (test code = 5295399264) 115 mmHg Diastolic BP (test code = 1855420625) 74 mmHg Heart Rate (test code = 2664829783) 89 bpm EF(Teich) (test code = 8392387841) 62.90 % LVIDD (test code = 2258218732) 4.60 cm LVIDS (test code = 1635516562) 3.00 cm Left Ventricular End Systolic Volume by Teichholz Method (test code = 8917062) 36.1 mL Left Ventricular End Diastolic Volume by Teichholz Method (test code = 1713415) 97.3 mL IVS (test code = 2380264770) 1.10 cm LVPWD (test code = 9606438616) 1.00 cm LVOT diameter (test code = 0173689912) 1.97 cm LVOT area (test code = 4400619407) 3.00 cm2 FS (test code = 1877248124) 34 % LA size (test code = 7943041062) 4.0 cm RVOT Proximal Diameter (test code = 1611308386) 3.50 cm ACS (test code = 3756936601) 1.87 cm Ao root diam (test code = 1735109580) 3.00 cm Aortic root (test code = 1489671138) 3.0 cm Ao root annulus (test code = 7935890373) 3.0 cm PW (test code = 6413398105) 1.00 cm 0.6-1.1 EF - 2D (test code = 42490026) 62.90 % Interventricular Septum Diastolic Thickness by 2D (test code = 4024027) 1.10 cm BSA (test code = 2567319796) 2.05 m2 E wave decelartion time (test code = 7490208924) 0.24 s MV Peak E Nik (test code = 6582864352) 75.5 cm/s MV Peak A Nik (test code = 5322043303) 71.3 cm/s E/A ratio (test code = 6306885027) 1.06 ratio MV Prop V (test code = 7173736620) 28.00 cm/s LVOT stroke volume (test code = 5066189677) 69.90 cm3 LVOT peak nik (test code = 4493528034) 121.6 cm/s LVOT mn grad (test code = 7195101565) 2.6 mmHg AV LVOT peak gradient (test code = 7409706037) 5.9 mmHg LVOT peak VTI (test code = 3632462812) 23.0 cm LV V1 mean (test code = 9941050940) 72.70 cm/s Aortic valve mean velocity (test code = 4593008125) 107.3 cm/s Ao peak nik (test code = 9937683698) 165.5 cm/s Ao VTI (test code = 3054393539) 31.0 cm AV area by cont VTI (test code = 0753610918) 2.3 cm2 AV area peak nik (test code = 5753620591) 2.2 cm2 Ao max PG (test code = 4521902372) 11.00 mm[Hg] AV peak gradient (test code = 3257024821) 11.0 mmHg AV valve area (test code = 5621455780) 2.26 cm2 AV mean gradient (test code = 9599666332) 5.3 mmHg TR Peak Nik (test code = 7563927938) 252.8 cm/s Triscuspid Valve Regurgitation Peak Gradient (test code = 3378340564) 25.6 mmHg Radiology Study observation (narrative) (test code = 95571-8) KORI (test code = KORI) ?Left?Ventricle: Left ventricle size is normal. Normal wall thickness. Normal wall motion. Normal systolic function with a visually estimated EF of 50 - 55%. Indeterminate diastolic function. ?Right?Ventricle: Right ventricle size is normal. Normal systolic function. ?Tricuspid?Valve: Right ventricular systolic pressure is 30-35 mmHg. ?RA pressure is 5-10 mmHg. Left VentricleLeft ventricle size is normal. Normal wall thickness. Normal wall motion. Normal systolic function with a visually estimated EF of 50 - 55%. Indeterminate diastolic function.Right VentricleRight ventricle size is normal. Normal systolic function.Left AtriumLeft atrium size is normal.Right AtriumRight atrium size is normal.IVC/SVCIVC diameter is greater than 21 mm and decreases greater than 50% during inspiration; therefore the estimated right atrial pressure is intermediate (~8 mmHg).Mitral ValveMitral valve structure is normal. Trace transvalvular regurgitation.Tricusp id ValveTricuspid valve structure is normal. Trace transvalvular regurgitation. Right ventricular systolic pressure is 30-35 mmHg. RA pressure is 5-10 mmHg.Aortic ValveTricuspid.Pulmon ic ValveNot well visualized.Ascending AortaNormal sized aorta.PericardiumThe pericardium is normal. No pericardial effusion.Study DetailsStudy quality was adequate. A complete echocardiogram was performed using 2D, color flow Doppler and spectral Doppler. The apical, parasternal, subcostal and suprasternal views were obtained. [facility] CenterLIP[facility] [id number] 03:35:23* Test Item Value Reference Range Interpretation [...] SPECIMENS. FOR MOREINFORMATION, SEE CLIENT ANNOUNCEMENT AT [email or web address] RISK RATIO LDL/HDL (test code = 2238) 2.16 RATIO <3.22 COMPREHENSIVE METABOLIC [id number] 03:35:23* Test Item Value Reference Range Interpretation Comme nts GLUCOSE (test code = 2217) 106 MG/DL 70-99 H BUN (test code = 2208) 16 MG/DL 6-20 CREATININE (test code = 2214) 1.00 MG/DL 0.60-1.30 eGFR (2020 CKD-EPI) (test code = 06476) 67 ML/MIN/1.73 >60 CALC BUN/CREAT (test code = 2235) 16 RATIO 6-28 SODIUM (test code = 223) 141 MEQ/L 133-146 POTASSIUM (test code = 2228) 4.4 MEQ/L 3.5-5.4 CHLORIDE (test code = 2215) 101 MEQ/L 95-107 CARBON DIOXIDE (test code = 2206) 27 MEQ/L 19-31 CALCIUM (test code = 2209) 10.4 MG/DL 8.5-10.5 PROTEIN, TOTAL (test code = 2229) 6.4 G/DL 6.1-8.3 ALBUMIN (test code = 2201) 4.0 G/DL 3.5-5.2 CALC GLOBULIN (test code = 2240) 2.4 G/DL 1.9-3.7 CALC A/G RATIO (test code = 2234) 1.7 RATIO 1.0-2.6 BILIRUBIN, TOTAL (test code = 2207) 0.4 MG/DL <=1.2 ALKALINE PHOSPHATASE (test code = 2204) 83 U/L 40-133 AST (test code = 2218) 23 U/L 9-40 ALT (test code = 2219) 10 U/L 5-40 UNLESS OTHERWISE INDICATED, ALL TESTING PERFORMED AT [facility] [address] [place] [id number] CLIENT REPRESENTATIVE: CHRISTINA STEVENS M.D. [place] NUMBER [id number] [facility] [place]. [id number] HEMOGLOBIN [id number] 03:16:04* Test Item Value Reference Range Interpretation Comme nts HEMOGLOBIN A1c (test code = 84885) 5.5 % 4.2-5.6 CBC W/AUTO DIFF WITH [id number] 02:15:09* Test Item Value Reference Range Interpretation [...] = 1065) 0.0 /100 WBC'S See_Comment [Automated [employer] ge] The system which generated this result [...] 0.00-0.10 ABS NUCLEATED RBCS (test code = 35167) 0.00 K/UL 0.00-0.11 CBC W/AUTO [id number] 00:00:00* Test Item Value Reference Range Interpretation [...] ABS NUCLEATED RBCS (test cod e = 01106) 0.00 K/UL Chris F AustinHEMOGLOBIN [id number] 00:00:00* Test Item Value Reference Range Interpretation Comme nts HEMOGLOBIN A1c (test code = 52390) 5.5 % Chris DohertyLIPID [id number] 00:00:00* Test Item Value Reference Range Interpretation Comme nts CHOLESTEROL (test code = 2210) 277 MG/DL TRIGLYCERIDES (test code = 2232) 132 MG/DL HDL CHOLESTEROL (test code = 2220) 79 MG/DL CALC LDL CHOL (test code = 2237) 171 MG/DL RISK RATIO LDL/HDL (test cod e = 2238) 2.16 RATIO Chris DohertyCOMPREHENSIVE METABOLIC [id number] 00:00:00* Test Item Value Reference Range Interpretation Comme nts GLUCOSE (test code = 2217) 106 MG/DL BUN (test code = 2208) 16 MG/DL CREATININE (test code = 2214) 1.00 MG/DL eGFR (2020 CKD-EPI) (test co de = 18226) 67 ML/MIN/1.73 CALC BUN/CREAT (test code = [...] = 2219) 10 U/L Chris DohertyCBC W/AUTO [id number] 00:00:00* Test Item Value Reference Range Interpretation [...] ABS NUCLEATED RBCS (test cod e = 90501) 0.00 K/UL Chris DohertyHEMOGLOBIN [id number] 00:00:00* Test Item Value Reference Range Interpretation Comme nts HEMOGLOBIN A1c (test code = 10238) 5.5 % Chris DohertyLIPID [id number] 00:00:00* Test Item Value Reference Range Interpretation Comme nts CHOLESTEROL (test code = 2210) 277 MG/DL TRIGLYCERIDES (test code = 2232) 132 MG/DL HDL CHOLESTEROL (test code = 2220) 79 MG/DL CALC LDL CHOL (test code = 2237) 171 MG/DL RISK RATIO LDL/HDL (test cod e = 2238) 2.16 RATIO Chris DohertyCOMPREHENSIVE METABOLIC [id number] 00:00:00* Test Item Value Reference Range Interpretation Comme nts GLUCOSE (test code = 2217) 106 MG/DL BUN (test code = 2208) 16 MG/DL CREATININE (test code = 2214) 1.00 MG/DL eGFR (2020 CKD-EPI) (test co de = 37773) 67 ML/MIN/1.73 CALC BUN/CREAT (test code = [...] (test code = 2219) 10 U/L Chris [facility] W/AUTO [id number] 00:00:00* Test Item Value Reference Range Interpretation [...] ABS NUCLEATED RBCS (test cod e = 25783) 0.00 K/UL Chris DohertyHEMOGLOBIN [id number] 00:00:00* Test Item Value Reference Range Interpretation Comme nts HEMOGLOBIN A1c (test code = 89506) 5.5 % Chris DohertyLIPID [id number] 00:00:00* Test Item Value Reference Range Interpretation Comme nts CHOLESTEROL (test code = 2210) 277 MG/DL TRIGLYCERIDES (test code = 2232) 132 MG/DL HDL CHOLESTEROL (test code = 2220) 79 MG/DL CALC LDL CHOL (test code = 2237) 171 MG/DL RISK RATIO LDL/HDL (test cod e = 2238) 2.16 RATIO Chris DohertyCOMPREHENSIVE METABOLIC [id number] 00:00:00* Test Item Value Reference Range Interpretation Comme nts GLUCOSE (test code = 2217) 106 MG/DL BUN (test code = 2208) 16 MG/DL CREATININE (test code = 2214) 1.00 MG/DL eGFR (2020 CKD-EPI) (test co de = 97086) 67 ML/MIN/1.73 CALC BUN/CREAT (test code = [...] = 2219) 10 U/L Chris DohertyCBC W/AUTO [id number] 00:00:00* Test Item Value Reference Range Interpretation [...] ABS NUCLEATED RBCS (test cod e = 51278) 0.00 K/UL Chris DohertyHEMOGLOBIN [id number] 00:00:00* Test Item Value Reference Range Interpretation Comme nts HEMOGLOBIN A1c (test code = 55821) 5.5 % Chris DohertyLIPID [id number] 00:00:00* Test Item Value Reference Range Interpretation Comme nts CHOLESTEROL (test code = 2210) 277 MG/DL TRIGLYCERIDES (test code = 2232) 132 MG/DL HDL CHOLESTEROL (test code = 2220) 79 MG/DL CALC LDL CHOL (test code = 2237) 171 MG/DL RISK RATIO LDL/HDL (test cod e = 2238) 2.16 RATIO Chris DohertyCOMPREHENSIVE METABOLIC [id number] 00:00:00* Test Item Value Reference Range Interpretation Comme nts GLUCOSE (test code = 2217) 106 MG/DL BUN (test code = 2208) 16 MG/DL CREATININE (test code = 2214) 1.00 MG/DL eGFR (2020 CKD-EPI) (test co de = 62979) 67 ML/MIN/1.73 CALC BUN/CREAT (test code = [...] (test code = 2219) 10 U/L Chris [facility] W/AUTO [id number] 00:00:00* Test Item Value Reference Range Interpretation [...] ABS NUCLEATED RBCS (test cod e = 70177) 0.00 K/UL Chris DohertyHEMOGLOBIN [id number] 00:00:00* Test Item Value Reference Range Interpretation Comme nts HEMOGLOBIN A1c (test code = 44271) 5.5 % Chris DohertyLIPID [id number] 00:00:00* Test Item Value Reference Range Interpretation Comme nts CHOLESTEROL (test code = 2210) 277 MG/DL TRIGLYCERIDES (test code = 2232) 132 MG/DL HDL CHOLESTEROL (test code = 2220) 79 MG/DL CALC LDL CHOL (test code = 2237) 171 MG/DL RISK RATIO LDL/HDL (test cod e = 2238) 2.16 RATIO Chris DohertyCOMPREHENSIVE METABOLIC [id number] 00:00:00* Test Item Value Reference Range Interpretation Comme nts GLUCOSE (test code = 2217) 106 MG/DL BUN (test code = 2208) 16 MG/DL CREATININE (test code = 2214) 1.00 MG/DL eGFR (2020 CKD-EPI) (test co de = 13565) 67 ML/MIN/1.73 CALC BUN/CREAT (test code = [...] = 2219) 10 U/L Chris DohertyCBC W/AUTO [id number] 00:00:00* Test Item Value Reference Range Interpretation [...] ABS NUCLEATED RBCS (test cod e = 09852) 0.00 K/UL Chris DohertyHEMOGLOBIN [id number] 00:00:00* Test Item Value Reference Range Interpretation Comme nts HEMOGLOBIN A1c (test code = 07607) 5.5 % Chris DohertyLIPID [id number] 00:00:00* Test Item Value Reference Range Interpretation Comme nts CHOLESTEROL (test code = 2210) 277 MG/DL TRIGLYCERIDES (test code = 2232) 132 MG/DL HDL CHOLESTEROL (test code = 2220) 79 MG/DL CALC LDL CHOL (test code = 2237) 171 MG/DL RISK RATIO LDL/HDL (test cod e = 2238) 2.16 RATIO Chris DohertyCOMPREHENSIVE METABOLIC [id number] 00:00:00* Test Item Value Reference Range Interpretation Comme nts GLUCOSE (test code = 2217) 106 MG/DL BUN (test code = 2208) 16 MG/DL CREATININE (test code = 2214) 1.00 MG/DL eGFR (2020 CKD-EPI) (test co de = 53840) 67 ML/MIN/1.73 CALC BUN/CREAT (test code = [...] = 2219) 10 U/L Chris DohertyCBC W/AUTO [id number] 00:00:00* Test Item Value Reference Range Interpretation [...] ABS NUCLEATED RBCS (test cod e = 44677) 0.00 K/UL Chris DohertyHEMOGLOBIN [id number] 00:00:00* Test Item Value Reference Range Interpretation Comme nts HEMOGLOBIN A1c (test code = 91867) 5.5 % Chris DohertyLIPID [id number] 00:00:00* Test Item Value Reference Range Interpretation Comme nts CHOLESTEROL (test code = 2210) 277 MG/DL TRIGLYCERIDES (test code = 2232) 132 MG/DL HDL CHOLESTEROL (test code = 2220) 79 MG/DL CALC LDL CHOL (test code = 2237) 171 MG/DL RISK RATIO LDL/HDL (test cod e = 2238) 2.16 RATIO Chris DohertyCOMPREHENSIVE METABOLIC [id number] 00:00:00* Test Item Value Reference Range Interpretation Comme nts GLUCOSE (test code = 2217) 106 MG/DL BUN (test code = 2208) 16 MG/DL CREATININE (test code = 2214) 1.00 MG/DL eGFR (2020 CKD-EPI) (test co de = 70346) 67 ML/MIN/1.73 CALC BUN/CREAT (test code = [...] = 2219) 10 U/L Chris DohertyCBC W/AUTO [id number] 00:00:00* Test Item Value Reference Range Interpretation [...] ABS NUCLEATED RBCS (test cod e = 83742) 0.00 K/UL Chris DohertyHEMOGLOBIN [id number] 00:00:00* Test Item Value Reference Range Interpretation Comme nts HEMOGLOBIN A1c (test code = 44774) 5.5 % Chris DohertyLIPID [id number] 00:00:00* Test Item Value Reference Range Interpretation Comme nts CHOLESTEROL (test code = 2210) 277 MG/DL TRIGLYCERIDES (test code = 2232) 132 MG/DL HDL CHOLESTEROL (test code = 2220) 79 MG/DL CALC LDL CHOL (test code = 2237) 171 MG/DL RISK RATIO LDL/HDL (test cod e = 2238) 2.16 RATIO Chris DohertyCOMPREHENSIVE METABOLIC [id number] 00:00:00* Test Item Value Reference Range Interpretation Comme nts GLUCOSE (test code = 2217) 106 MG/DL BUN (test code = 2208) 16 MG/DL CREATININE (test code = 2214) 1.00 MG/DL eGFR (2020 CKD-EPI) (test co de = 99653) 67 ML/MIN/1.73 CALC BUN/CREAT (test code = [...] = 2219) 10 U/L Chris DohertyCBC W/AUTO [id number] 00:00:00* Test Item Value Reference Range Interpretation [...] ABS NUCLEATED RBCS (test cod e = 21893) 0.00 K/UL Chris DohertyHEMOGLOBIN [id number] 00:00:00* Test Item Value Reference Range Interpretation Comme nts HEMOGLOBIN A1c (test code = 17816) 5.5 % Chris Brandt AustinLIPID [id number] 00:00:00* Test Item Value Reference Range Interpretation Comme nts CHOLESTEROL (test code = 2210) 277 MG/DL TRIGLYCERIDES (test code = 2232) 132 MG/DL HDL CHOLESTEROL (test code = 2220) 79 MG/DL CALC LDL CHOL (test code = 2237) 171 MG/DL RISK RATIO LDL/HDL (test cod e = 2238) 2.16 RATIO Chris DohertyCOMPREHENSIVE METABOLIC [id number] 00:00:00* Test Item Value Reference Range Interpretation Comme nts GLUCOSE (test code = 2217) 106 MG/DL BUN (test code = 2208) 16 MG/DL CREATININE (test code = 2214) 1.00 MG/DL eGFR (2020 CKD-EPI) (test co de = 63296) 67 ML/MIN/1.73 CALC BUN/CREAT (test code = [...] (test code = 2219) 10 U/L [facility] [id number] 00:00:00* Test Item Value Reference Range Interpretation [...] ABS NUCLEATED RBCS (test cod e = 17957) 0.00 K/UL Chris DohertyHEMOGLOBIN [id number] 00:00:00* Test Item Value Reference Range Interpretation Comme nts HEMOGLOBIN A1c (test code = 45172) 5.5 % Chris DohertyLIPID [id number] 00:00:00* Test Item Value Reference Range Interpretation Comme nts CHOLESTEROL (test code = 2210) 277 MG/DL TRIGLYCERIDES (test code = 2232) 132 MG/DL HDL CHOLESTEROL (test code = 2220) 79 MG/DL CALC LDL CHOL (test code = 2237) 171 MG/DL RISK RATIO LDL/HDL (test cod e = 2238) 2.16 RATIO Chris DohertyCOMPREHENSIVE METABOLIC [id number] 00:00:00* Test Item Value Reference Range Interpretation Comme nts GLUCOSE (test code = 2217) 106 MG/DL BUN (test code = 2208) 16 MG/DL CREATININE (test code = 2214) 1.00 MG/DL eGFR (2020 CKD-EPI) (test co de = 57569) 67 ML/MIN/1.73 CALC BUN/CREAT (test code = [...] = 2219) 10 U/L Chris DohertyCBC W/AUTO [id number] 00:00:00* Test Item Value Reference Range Interpretation [...] ABS NUCLEATED RBCS (test cod e = 29580) 0.00 K/UL Chris DohertyHEMOGLOBIN [id number] 00:00:00* Test Item Value Reference Range Interpretation Comme nts HEMOGLOBIN A1c (test code = 71721) 5.5 % Chris DohertyLIPID [id number] 00:00:00* Test Item Value Reference Range Interpretation Comme nts CHOLESTEROL (test code = 2210) 277 MG/DL TRIGLYCERIDES (test code = 2232) 132 MG/DL HDL CHOLESTEROL (test code = 2220) 79 MG/DL CALC LDL CHOL (test code = 2237) 171 MG/DL RISK RATIO LDL/HDL (test cod e = 2238) 2.16 RATIO Chris DohertyCOMPREHENSIVE METABOLIC [id number] 00:00:00* Test Item Value Reference Range Interpretation Comme nts GLUCOSE (test code = 2217) 106 MG/DL BUN (test code = 2208) 16 MG/DL CREATININE (test code = 2214) 1.00 MG/DL eGFR (2020 CKD-EPI) (test co de = 91145) 67 ML/MIN/1.73 CALC BUN/CREAT (test code = [...] (test code = 2219) 10 U/L [facility] [id number] 00:00:00* Test Item Value Reference Range Interpretation [...] ABS NUCLEATED RBCS (test cod e = 72915) 0.00 K/UL Chris DohertyHEMOGLOBIN [id number] 00:00:00* Test Item Value Reference Range Interpretation Comme nts HEMOGLOBIN A1c (test code = 53571) 5.5 % Chris DohertyLIPID [id number] 00:00:00* Test Item Value Reference Range Interpretation Comme nts CHOLESTEROL (test code = 2210) 277 MG/DL TRIGLYCERIDES (test code = 2232) 132 MG/DL HDL CHOLESTEROL (test code = 2220) 79 MG/DL CALC LDL CHOL (test code = 2237) 171 MG/DL RISK RATIO LDL/HDL (test cod e = 2238) 2.16 RATIO Chris Brandt ChasCOMPREHENSIVE METABOLIC [id number] 00:00:00* Test Item Value Reference Range Interpretation Comme nts GLUCOSE (test code = 2217) 106 MG/DL BUN (test code = 2208) 16 MG/DL CREATININE (test code = 2214) 1.00 MG/DL eGFR (2020 CKD-EPI) (test co de = 23430) 67 ML/MIN/1.73 CALC BUN/CREAT (test code = [...] (test code = 2219) 10 U/L Chris Brandt ChasREFERRAL- REQUEST/[id number] 18:41:29Ordered by an unspecified provider.[facility]TR[facility], [id number] 08:54:12SPECIMEN NUMBER: [id number] CULTURE, URINE SPECIMEN NUMBER: [id number] SPECIMEN COMMENT: URINE SOURCE: URINE REPORT STATUS: FINAL FINAL REPORT: 11/17/2022 50-100,000 CFU/ML UROGENITAL RICKEY PRESENT NO COMMON PATHOGENS UNLESS OTHERWISE INDICATED, ALL TESTING PERFORMED AT [facility] [address] [place] [address] CLIENT REPRESENTATIVE: CHRISTINA STEVENS M.D. CLIA NUMBER [id number] [facility] [place]. [id number], [id number] 00:00:00* Test Item Value Reference Range Interpretation Comme nts CULTURE, URINE (test code = 67256) SPECIMEN NUMBER: [id number] Chris Cao [id number] 00:00:00* Test Item Value Reference Range Interpretation Comme nts CULTURE, URINE (test code = 83844) SPECIMEN NUMBER: [id number] Chris Cao, [id number] 00:00:00* Test Item Value Reference Range Interpretation Comme nts CULTURE, URINE (test code = 66919) SPECIMEN NUMBER: [id number] Chris Cao [id number] 00:00:00* Test Item Value Reference Range Interpretation Comme nts CULTURE, URINE (test code = 55440) SPECIMEN NUMBER: [id number] Chris Cao [id number] 00:00:00* Test Item Value Reference Range Interpretation Comme nts CULTURE, URINE (test code = 40865) SPECIMEN NUMBER: [id number] Chris Cao [id number] 00:00:00* Test Item Value Reference Range Interpretation Comme nts CULTURE, URINE (test code = 41105) SPECIMEN NUMBER: [id number] BATSHEVA [id number] 00:00:00* Test Item Value Reference Range Interpretation Comme nts CULTURE, URINE (test code = 22223) SPECIMEN NUMBER: [id number] Chris Cao [id number] 00:00:00* Test Item Value Reference Range Interpretation Comme nts CULTURE, URINE (test code = 79136) SPECIMEN NUMBER: [id number] Chris TaylorLTURE, [id number] 00:00:00* Test Item Value Reference Range Interpretation Comme nts CULTURE, URINE (test code = 78252) SPECIMEN NUMBER: [id number] Chris TaylorLTVENESSA, [id number] 00:00:00* Test Item Value Reference Range Interpretation Comme nts CULTURE, URINE (test code = 78096) SPECIMEN NUMBER: [id number] Chris DohertyCULTURE, [id number] 00:00:00* Test Item Value Reference Range Interpretation Comme nts CULTURE, URINE (test code = 74602) SPECIMEN NUMBER: [id number] Chris TaylorLTURE, [id number] 00:00:00* Test Item Value Reference Range Interpretation Comme nts CULTURE, URINE (test code = 09795) SPECIMEN NUMBER: [id number] Chris TaylorLTVENESSA, [id number] 00:00:00* Test Item Value Reference Range Interpretation Comme nts CULTURE, URINE (test code = 36267) SPECIMEN NUMBER: [id number] Chris DohertyCULTVENESSA, [id number] 00:00:00* Test Item Value Reference Range Interpretation Comme nts CULTURE, URINE (test code = 32551) SPECIMEN NUMBER: [id number] Chris DohertyLIPID [id number] 04:49:16* Test Item Value Reference Range Interpretation [...] SPECIMENS. FOR MOREINFORMATION, SEE CLIENT ANNOUNCEMENT AT [email or web address] RISK RATIO LDL/HDL (test code = 2238) 2.25 RATIO <3.22 UNLESS OTHERW ISE INDICATED, ALL TESTING PERFORMED AT [facility] [address] [facility] [place] [address] CLIENT REPRESENTATIVE: CHRISTINA STEVENS M.D. CLIA NUMBER [id number] [facility] [place]. [id number] HEMOGLOBIN [id number] 02:57:56* Test Item Value Reference Range Interpretation Comme nts HEMOGLOBIN A1c (test code = 72657) 5.6 % 4.2-5.6 HEMOGLOBIN [id number] 00:00:00* Test Item Value Reference Range Interpretation Comme nts HEMOGLOBIN A1c (test code = 96296) 5.6 % Chris Brandt AustinLIPID [id number] 00:00:00* Test Item Value Reference Range Interpretation Comme nts CHOLESTEROL (test code = 2210) 272 MG/DL TRIGLYCERIDES (test code = 2232) 120 MG/DL HDL CHOLESTEROL (test code = 2220) 76 MG/DL CALC LDL CHOL (test code = 2237) 171 MG/DL RISK RATIO LDL/HDL (test cod e = 2238) 2.25 RATIO Chris DohertyHEMOGLOBIN [id number] 00:00:00* Test Item Value Reference Range Interpretation Comme nts HEMOGLOBIN A1c (test code = 96361) 5.6 % Chris Brandt AustinLIPID [id number] 00:00:00* Test Item Value Reference Range Interpretation Comme nts CHOLESTEROL (test code = 2210) 272 MG/DL TRIGLYCERIDES (test code = 2232) 120 MG/DL HDL CHOLESTEROL (test code = 2220) 76 MG/DL CALC LDL CHOL (test code = 2237) 171 MG/DL RISK RATIO LDL/HDL (test cod e = 2238) 2.25 RATIO Chris Brandt AustinHEMOGLOBIN [id number] 00:00:00* Test Item Value Reference Range Interpretation Comme nts HEMOGLOBIN A1c (test code = 22336) 5.6 % Chris Brandt AustinLIPID [id number] 00:00:00* Test Item Value Reference Range Interpretation Comme nts CHOLESTEROL (test code = 2210) 272 MG/DL TRIGLYCERIDES (test code = 2232) 120 MG/DL HDL CHOLESTEROL (test code = 2220) 76 MG/DL CALC LDL CHOL (test code = 2237) 171 MG/DL RISK RATIO LDL/HDL (test cod e = 2238) 2.25 RATIO Chris Brandt AustinHEMOGLOBIN [id number] 00:00:00* Test Item Value Reference Range Interpretation Comme nts HEMOGLOBIN A1c (test code = 19640) 5.6 % Chris Brandt AustinLIPID [id number] 00:00:00* Test Item Value Reference Range Interpretation Comme nts CHOLESTEROL (test code = 2210) 272 MG/DL TRIGLYCERIDES (test code = 2232) 120 MG/DL HDL CHOLESTEROL (test code = 2220) 76 MG/DL CALC LDL CHOL (test code = 2237) 171 MG/DL RISK RATIO LDL/HDL (test cod e = 2238) 2.25 RATIO Chris Brandt AustinHEMOGLOBIN [id number] 00:00:00* Test Item Value Reference Range Interpretation Comme nts HEMOGLOBIN A1c (test code = 62585) 5.6 % Chris Brandt AustinLIPID [id number] 00:00:00* Test Item Value Reference Range Interpretation Comme nts CHOLESTEROL (test code = 2210) 272 MG/DL TRIGLYCERIDES (test code = 2232) 120 MG/DL HDL CHOLESTEROL (test code = 2220) 76 MG/DL CALC LDL CHOL (test code = 2237) 171 MG/DL RISK RATIO LDL/HDL (test cod e = 2238) 2.25 RATIO Chris Brandt AustinHEMOGLOBIN [id number] 00:00:00* Test Item Value Reference Range Interpretation Comme nts HEMOGLOBIN A1c (test code = 30113) 5.6 % Chris Brandt AustinLIPID [id number] 00:00:00* Test Item Value Reference Range Interpretation Comme nts CHOLESTEROL (test code = 2210) 272 MG/DL TRIGLYCERIDES (test code = 2232) 120 MG/DL HDL CHOLESTEROL (test code = 2220) 76 MG/DL CALC LDL CHOL (test code = 2237) 171 MG/DL RISK RATIO LDL/HDL (test cod e = 2238) 2.25 RATIO Chris Brandt AustinHEMOGLOBIN [id number] 00:00:00* Test Item Value Reference Range Interpretation Comme nts HEMOGLOBIN A1c (test code = 23639) 5.6 % Chris Brandt AustinLIPID [id number] 00:00:00* Test Item Value Reference Range Interpretation Comme nts CHOLESTEROL (test code = 2210) 272 MG/DL TRIGLYCERIDES (test code = 2232) 120 MG/DL HDL CHOLESTEROL (test code = 2220) 76 MG/DL CALC LDL CHOL (test code = 2237) 171 MG/DL RISK RATIO LDL/HDL (test cod e = 2238) 2.25 RATIO Chris Brandt AustinHEMOGLOBIN [id number] 00:00:00* Test Item Value Reference Range Interpretation Comme nts HEMOGLOBIN A1c (test code = 17461) 5.6 % Chris Brandt AustinLIPID [id number] 00:00:00* Test Item Value Reference Range Interpretation Comme nts CHOLESTEROL (test code = 2210) 272 MG/DL TRIGLYCERIDES (test code = 2232) 120 MG/DL HDL CHOLESTEROL (test code = 2220) 76 MG/DL CALC LDL CHOL (test code = 2237) 171 MG/DL RISK RATIO LDL/HDL (test cod e = 2238) 2.25 RATIO Chris Brandt AustinHEMOGLOBIN [id number] 00:00:00* Test Item Value Reference Range Interpretation Comme nts HEMOGLOBIN A1c (test code = 16183) 5.6 % Chris Brandt AustinLIPID [id number] 00:00:00* Test Item Value Reference Range Interpretation Comme nts CHOLESTEROL (test code = 2210) 272 MG/DL TRIGLYCERIDES (test code = 2232) 120 MG/DL HDL CHOLESTEROL (test code = 2220) 76 MG/DL CALC LDL CHOL (test code = 2237) 171 MG/DL RISK RATIO LDL/HDL (test cod e = 2238) 2.25 RATIO Chris Brandt AustinHEMOGLOBIN [id number] 00:00:00* Test Item Value Reference Range Interpretation Comme nts HEMOGLOBIN A1c (test code = 17873) 5.6 % Chris Brandt AustinLIPID [id number] 00:00:00* Test Item Value Reference Range Interpretation Comme nts CHOLESTEROL (test code = 2210) 272 MG/DL TRIGLYCERIDES (test code = 2232) 120 MG/DL HDL CHOLESTEROL (test code = 2220) 76 MG/DL CALC LDL CHOL (test code = 2237) 171 MG/DL RISK RATIO LDL/HDL (test cod e = 2238) 2.25 RATIO Chris Brandt AustinHEMOGLOBIN [id number] 00:00:00* Test Item Value Reference Range Interpretation Comme nts HEMOGLOBIN A1c (test code = 26204) 5.6 % Chris Brandt AustinLIPID [id number] 00:00:00* Test Item Value Reference Range Interpretation Comme nts CHOLESTEROL (test code = 2210) 272 MG/DL TRIGLYCERIDES (test code = 2232) 120 MG/DL HDL CHOLESTEROL (test code = 2220) 76 MG/DL CALC LDL CHOL (test code = 2237) 171 MG/DL RISK RATIO LDL/HDL (test cod e = 2238) 2.25 RATIO Chris Brandt AustinHEMOGLOBIN [id number] 00:00:00* Test Item Value Reference Range Interpretation Comme nts HEMOGLOBIN A1c (test code = 39226) 5.6 % Chris Brandt AustinLIPID [id number] 00:00:00* Test Item Value Reference Range Interpretation Comme nts CHOLESTEROL (test code = 2210) 272 MG/DL TRIGLYCERIDES (test code = 2232) 120 MG/DL HDL CHOLESTEROL (test code = 2220) 76 MG/DL CALC LDL CHOL (test code = 2237) 171 MG/DL RISK RATIO LDL/HDL (test cod e = 2238) 2.25 RATIO Chris Brandt AustinHEMOGLOBIN [id number] 00:00:00* Test Item Value Reference Range Interpretation Comme nts HEMOGLOBIN A1c (test code = 03886) 5.6 % Chris Brandt AustinLIPID [id number] 00:00:00* Test Item Value Reference Range Interpretation Comme nts CHOLESTEROL (test code = 2210) 272 MG/DL TRIGLYCERIDES (test code = 2232) 120 MG/DL HDL CHOLESTEROL (test code = 2220) 76 MG/DL CALC LDL CHOL (test code = 2237) 171 MG/DL RISK RATIO LDL/HDL (test cod e = 2238) 2.25 RATIO Chris Brandt AustinHEMOGLOBIN [id number] 00:00:00* Test Item Value Reference Range Interpretation Comme nts HEMOGLOBIN A1c (test code = 57627) 5.6 % Chris Brandt AustinLIPID [id number] 00:00:00* Test Item Value Reference Range Interpretation Comme nts CHOLESTEROL (test code = 2210) 272 MG/DL TRIGLYCERIDES (test code = 2232) 120 MG/DL HDL CHOLESTEROL (test code = 2220) 76 MG/DL CALC LDL CHOL (test code = 2237) 171 MG/DL RISK RATIO LDL/HDL (test cod e = 2238) 2.25 RATIO Chris Miller, THIRD [id number] 05:54:28* Test Item Value Reference Range Interpretation Comme nts TSH, THIRD GENERATION (test code = 2821) 0.631 UIU/ML 0.400-4.100 HEMOGLOBIN [id number] 04:59:53* Test Item Value Reference Range Interpretation Comme nts HEMOGLOBIN A1c (test code = 62532) 6.1 % 4.2-5.6 H [employer] GUIDELINES FOR HGB A1C: [...] ALTERNATE TESTING OR LABORATORY CONSULTATION. COMPREHENSIVE METABOLIC [id number] 03:54:48* Test Item Value Reference Range Interpretation Comme nts GLUCOSE (test code = 2217) 101 MG/DL 70-99 H BUN (test code = 2208) 20 MG/DL 6-20 CREATININE (test code = 2214) 0.99 MG/DL 0.60-1.30 eGFR (2020 CKD-EPI) (test code = 55195) 69 ML/MIN/1.73 >60 CALC BUN/CREAT (test code [...] 7.0 G/DL 6.1-8.3 ALBUMIN (test code = 220) 4.4 G/DL 3.5-5.2 CALC GLOBULIN (test code [...] code = 2219) 11 U/L 5-40 LIPID [id number] 03:54:48* Test Item Value Reference Range Interpretation [...] SPECIMENS. FOR MOREINFORMATION, SEE CLIENT ANNOUNCEMENT AT [email or web address] RISK RATIO LDL/HDL (test code = 2238) 1.39 RATIO <3.22 [facility] has i mportant pathology staff changes effective 04/18/2022. New pathology staff will provide uninterrupted, excellent patient care and clinical consultation. See URL: [email or web address]. UNLESS OTHERWISE INDICATED, ALL TESTING PERFORMED AT [facility] [address] [place] [address] CLIENT REPRESENTATIVE: CHRISTINA STEVENS M.D. CLIA NUMBER [id number] [place]. [id number] CBC W/AUTO DIFF WITH [id number] 03:51:06* Test Item Value Reference Range Interpretation [...] = 1065) 0.0 /100 WBC'S See_Comment [Automated [employer] ge] The system which generated this result [...] 0.00-0.10 ABS NUCLEATED RBCS (test code = 11822) 0.00 K/UL 0.00-0.11 HEMOGLOBIN [id number] 00:00:00* Test Item Value Reference Range Interpretation Comme nts HEMOGLOBIN A1c (test code = 71257) 6.1 % Chris DohertyCOMPREHENSIVE METABOLIC [id number] 00:00:00* Test Item Value Reference Range Interpretation Comme nts GLUCOSE (test code = 2217) 101 MG/DL BUN (test code = 2208) 20 MG/DL CREATININE (test code = 2214) 0.99 MG/DL eGFR (2020 CKD-EPI) (test co de = 80016) 69 ML/MIN/1.73 CALC BUN/CREAT (test code = [...] (test code = 2219) 11 U/L Chris [id number] 00:00:00* Test Item Value Reference Range Interpretation Comme nts TSH, THIRD GENERATION (test code = 2821) 0.631 UIU/ML Chris DohertyLIPID [id number] 00:00:00* Test Item Value Reference Range Interpretation Comme nts CHOLESTEROL (test code = 2210) 253 MG/DL TRIGLYCERIDES (test code = 2232) 164 MG/DL HDL CHOLESTEROL (test code = 2220) 94 MG/DL CALC LDL CHOL (test code = 2237) 131 MG/DL RISK RATIO LDL/HDL (test cod e = 2238) 1.39 RATIO Chris DohertyCBC W/AUTO [id number] 00:00:00* Test Item Value Reference Range Interpretation [...] ABS NUCLEATED RBCS (test cod e = 51536) 0.00 K/UL Chris DohertyHEMOGLOBIN [id number] 00:00:00* Test Item Value Reference Range Interpretation Comme nts HEMOGLOBIN A1c (test code = 79130) 6.1 % Chris DohertyCOMPREHENSIVE METABOLIC [id number] 00:00:00* Test Item Value Reference Range Interpretation Comme nts GLUCOSE (test code = 2217) 101 MG/DL BUN (test code = 2208) 20 MG/DL CREATININE (test code = 2214) 0.99 MG/DL eGFR (2020 CKD-EPI) (test co de = 32497) 69 ML/MIN/1.73 CALC BUN/CREAT (test code = [...] (test code = 2219) 11 U/L Chris [id number] 00:00:00* Test Item Value Reference Range Interpretation Comme nts TSH, THIRD GENERATION (test code = 2821) 0.631 UIU/ML Chris DohertyLIPID [id number] 00:00:00* Test Item Value Reference Range Interpretation Comme nts CHOLESTEROL (test code = 2210) 253 MG/DL TRIGLYCERIDES (test code = 2232) 164 MG/DL HDL CHOLESTEROL (test code = 2220) 94 MG/DL CALC LDL CHOL (test code = 2237) 131 MG/DL RISK RATIO LDL/HDL (test cod e = 2238) 1.39 RATIO Chris DohertyCBC W/AUTO [id number] 00:00:00* Test Item Value Reference Range Interpretation [...] ABS NUCLEATED RBCS (test cod e = 27473) 0.00 K/UL Chris DohertyHEMOGLOBIN [id number] 00:00:00* Test Item Value Reference Range Interpretation Comme nts HEMOGLOBIN A1c (test code = 77042) 6.1 % Chris DohertyCOMPREHENSIVE METABOLIC [id number] 00:00:00* Test Item Value Reference Range Interpretation Comme nts GLUCOSE (test code = 2217) 101 MG/DL BUN (test code = 2208) 20 MG/DL CREATININE (test code = 2214) 0.99 MG/DL eGFR (2020 CKD-EPI) (test co de = 73253) 69 ML/MIN/1.73 CALC BUN/CREAT (test code = [...] (test code = 2219) 11 U/L Chris [id number] 00:00:00* Test Item Value Reference Range Interpretation Comme nts TSH, THIRD GENERATION (test code = 2821) 0.631 UIU/ML Chris DohertyLIPID [id number] 00:00:00* Test Item Value Reference Range Interpretation Comme nts CHOLESTEROL (test code = 2210) 253 MG/DL TRIGLYCERIDES (test code = 2232) 164 MG/DL HDL CHOLESTEROL (test code = 2220) 94 MG/DL CALC LDL CHOL (test code = 2237) 131 MG/DL RISK RATIO LDL/HDL (test cod e = 2238) 1.39 RATIO Chris DohertyCBC W/AUTO [id number] 00:00:00* Test Item Value Reference Range Interpretation [...] ABS NUCLEATED RBCS (test cod e = 10252) 0.00 K/UL Chris DohertyHEMOGLOBIN [id number] 00:00:00* Test Item Value Reference Range Interpretation Comme nts HEMOGLOBIN A1c (test code = 50327) 6.1 % Chris DohertyCOMPREHENSIVE METABOLIC [id number] 00:00:00* Test Item Value Reference Range Interpretation Comme nts GLUCOSE (test code = 2217) 101 MG/DL BUN (test code = 2208) 20 MG/DL CREATININE (test code = 2214) 0.99 MG/DL eGFR (2020 CKD-EPI) (test co de = 64309) 69 ML/MIN/1.73 CALC BUN/CREAT (test code = [...] (test code = 2219) 11 U/L Chris [id number] 00:00:00* Test Item Value Reference Range Interpretation Comme nts TSH, THIRD GENERATION (test code = 2821) 0.631 UIU/ML Chris DohertyLIPID [id number] 00:00:00* Test Item Value Reference Range Interpretation Comme nts CHOLESTEROL (test code = 2210) 253 MG/DL TRIGLYCERIDES (test code = 2232) 164 MG/DL HDL CHOLESTEROL (test code = 2220) 94 MG/DL CALC LDL CHOL (test code = 2237) 131 MG/DL RISK RATIO LDL/HDL (test cod e = 2238) 1.39 RATIO Chris DohertyCBC W/AUTO [id number] 00:00:00* Test Item Value Reference Range Interpretation [...] ABS NUCLEATED RBCS (test cod e = 36008) 0.00 K/UL Chris DohertyHEMOGLOBIN [id number] 00:00:00* Test Item Value Reference Range Interpretation Comme nts HEMOGLOBIN A1c (test code = 91397) 6.1 % Chris DohertyCOMPREHENSIVE METABOLIC [id number] 00:00:00* Test Item Value Reference Range Interpretation Comme nts GLUCOSE (test code = 2217) 101 MG/DL BUN (test code = 2208) 20 MG/DL CREATININE (test code = 2214) 0.99 MG/DL eGFR (2020 CKD-EPI) (test co de = 96170) 69 ML/MIN/1.73 CALC BUN/CREAT (test code = [...] (test code = 2219) 11 U/L Chris [id number] 00:00:00* Test Item Value Reference Range Interpretation Comme nts TSH, THIRD GENERATION (test code = 2821) 0.631 UIU/ML Chris DohertyLIPID [id number] 00:00:00* Test Item Value Reference Range Interpretation Comme nts CHOLESTEROL (test code = 2210) 253 MG/DL TRIGLYCERIDES (test code = 2232) 164 MG/DL HDL CHOLESTEROL (test code = 2220) 94 MG/DL CALC LDL CHOL (test code = 2237) 131 MG/DL RISK RATIO LDL/HDL (test cod e = 2238) 1.39 RATIO Chris DohertyCBC W/AUTO [id number] 00:00:00* Test Item Value Reference Range Interpretation [...] ABS NUCLEATED RBCS (test cod e = 15902) 0.00 K/UL Chris DohertyHEMOGLOBIN [id number] 00:00:00* Test Item Value Reference Range Interpretation Comme ld HEMOGLOBIN A1c (test code = 83460) 6.1 % Chris DohertyCOMPREHENSIVE METABOLIC [id number] 00:00:00* Test Item Value Reference Range Interpretation Comme nts GLUCOSE (test code = 2217) 101 MG/DL BUN (test code = 2208) 20 MG/DL CREATININE (test code = 2214) 0.99 MG/DL eGFR (2020 CKD-EPI) (test co de = 81073) 69 ML/MIN/1.73 CALC BUN/CREAT (test code = [...] ALT (test code = 2219) 11 U/L Crhis [id number] 00:00:00* Test Item Value Reference Range Interpretation Comme ld TSH, THIRD GENERATION (test code = 2821) 0.631 UIU/ML Chris DohertyLIPID [id number] 00:00:00* Test Item Value Reference Range Interpretation Comme ld CHOLESTEROL (test code = 2210) 253 MG/DL TRIGLYCERIDES (test code = 2232) 164 MG/DL HDL CHOLESTEROL (test code = 2220) 94 MG/DL CALC LDL CHOL (test code = 2237) 131 MG/DL RISK RATIO LDL/HDL (test cod e = 2238) 1.39 RATIO Chris DohertyCBC W/AUTO [id number] 00:00:00* Test Item Value Reference Range Interpretation [...] ABS NUCLEATED RBCS (test cod e = 53581) 0.00 K/UL Chris DohertyHEMOGLOBIN [id number] 00:00:00* Test Item Value Reference Range Interpretation Comme nts HEMOGLOBIN A1c (test code = 12781) 6.1 % Chris DohertyCOMPREHENSIVE METABOLIC [id number] 00:00:00* Test Item Value Reference Range Interpretation Comme nts GLUCOSE (test code = 2217) 101 MG/DL BUN (test code = 2208) 20 MG/DL CREATININE (test code = 2214) 0.99 MG/DL eGFR (2020 CKD-EPI) (test co de = 37141) 69 ML/MIN/1.73 CALC BUN/CREAT (test code = [...] (test code = 2219) 11 U/L Chris [id number] 00:00:00* Test Item Value Reference Range Interpretation Comme nts TSH, THIRD GENERATION (test code = 2821) 0.631 UIU/ML Chris DohertyLIPID [id number] 00:00:00* Test Item Value Reference Range Interpretation Comme nts CHOLESTEROL (test code = 2210) 253 MG/DL TRIGLYCERIDES (test code = 2232) 164 MG/DL HDL CHOLESTEROL (test code = 2220) 94 MG/DL CALC LDL CHOL (test code = 2237) 131 MG/DL RISK RATIO LDL/HDL (test cod e = 2238) 1.39 RATIO Chris DohertyCBC W/AUTO [id number] 00:00:00* Test Item Value Reference Range Interpretation [...] ABS NUCLEATED RBCS (test cod e = 03038) 0.00 K/UL Chris DohertyHEMOGLOBIN [id number] 00:00:00* Test Item Value Reference Range Interpretation Comme nts HEMOGLOBIN A1c (test code = 95671) 6.1 % Chris Brandt ChasCOMPREHENSIVE METABOLIC [id number] 00:00:00* Test Item Value Reference Range Interpretation Comme nts GLUCOSE (test code = 2217) 101 MG/DL BUN (test code = 2208) 20 MG/DL CREATININE (test code = 2214) 0.99 MG/DL eGFR (2020 CKD-EPI) (test co de = 29299) 69 ML/MIN/1.73 CALC BUN/CREAT (test code = [...] (test code = 2219) 11 U/L Chris [id number] 00:00:00* Test Item Value Reference Range Interpretation Comme nts TSH, THIRD GENERATION (test code = 2821) 0.631 UIU/ML Chris DohertyLIPID [id number] 00:00:00* Test Item Value Reference Range Interpretation Comme nts CHOLESTEROL (test code = 2210) 253 MG/DL TRIGLYCERIDES (test code = 2232) 164 MG/DL HDL CHOLESTEROL (test code = 2220) 94 MG/DL CALC LDL CHOL (test code = 2237) 131 MG/DL RISK RATIO LDL/HDL (test cod e = 2238) 1.39 RATIO Chris DohertyCBC W/AUTO [id number] 00:00:00* Test Item Value Reference Range Interpretation [...] ABS NUCLEATED RBCS (test cod e = 64769) 0.00 K/UL Chris DohertyHEMOGLOBIN [id number] 00:00:00* Test Item Value Reference Range Interpretation Comme ld HEMOGLOBIN A1c (test code = 00682) 6.1 % Chris DohertyCOMPREHENSIVE METABOLIC [id number] 00:00:00* Test Item Value Reference Range Interpretation Comme nts GLUCOSE (test code = 2217) 101 MG/DL BUN (test code = 2208) 20 MG/DL CREATININE (test code = 2214) 0.99 MG/DL eGFR (2020 CKD-EPI) (test co de = 82886) 69 ML/MIN/1.73 CALC BUN/CREAT (test code = [...] (test code = 2219) 11 U/L Chris [id number] 00:00:00* Test Item Value Reference Range Interpretation Comme ld TSH, THIRD GENERATION (test code = 2821) 0.631 UIU/ML Chris DohertyLIPID [id number] 00:00:00* Test Item Value Reference Range Interpretation Comme nts CHOLESTEROL (test code = 2210) 253 MG/DL TRIGLYCERIDES (test code = 2232) 164 MG/DL HDL CHOLESTEROL (test code = 2220) 94 MG/DL CALC LDL CHOL (test code = 2237) 131 MG/DL RISK RATIO LDL/HDL (test cod e = 2238) 1.39 RATIO Chris DohertyCBC W/AUTO [id number] 00:00:00* Test Item Value Reference Range Interpretation [...] ABS NUCLEATED RBCS (test cod e = 20568) 0.00 K/UL Chris DohertyHEMOGLOBIN [id number] 00:00:00* Test Item Value Reference Range Interpretation Comme nts HEMOGLOBIN A1c (test code = 75665) 6.1 % Chris DohertyCOMPREHENSIVE METABOLIC [id number] 00:00:00* Test Item Value Reference Range Interpretation Comme nts GLUCOSE (test code = 2217) 101 MG/DL BUN (test code = 2208) 20 MG/DL CREATININE (test code = 2214) 0.99 MG/DL eGFR (2020 CKD-EPI) (test co de = 94545) 69 ML/MIN/1.73 CALC BUN/CREAT (test code = [...] (test code = 2219) 11 U/L Chris [id number] 00:00:00* Test Item Value Reference Range Interpretation Comme nts TSH, THIRD GENERATION (test code = 2821) 0.631 UIU/ML Chris DohertyLIPID [id number] 00:00:00* Test Item Value Reference Range Interpretation Comme nts CHOLESTEROL (test code = 2210) 253 MG/DL TRIGLYCERIDES (test code = 2232) 164 MG/DL HDL CHOLESTEROL (test code = 2220) 94 MG/DL CALC LDL CHOL (test code = 2237) 131 MG/DL RISK RATIO LDL/HDL (test cod e = 2238) 1.39 RATIO Chris DohertyCBC W/AUTO [id number] 00:00:00* Test Item Value Reference Range Interpretation [...] ABS NUCLEATED RBCS (test cod e = 53323) 0.00 K/UL Chris DohertyHEMOGLOBIN [id number] 00:00:00* Test Item Value Reference Range Interpretation Comme [facility] HEMOGLOBIN A1c (test code = 60218) 6.1 % Chris DohertyCOMPREHENSIVE METABOLIC [id number] 00:00:00* Test Item Value Reference Range Interpretation Comme nts GLUCOSE (test code = 2217) 101 MG/DL BUN (test code = 2208) 20 MG/DL CREATININE (test code = 2214) 0.99 MG/DL eGFR (2020 CKD-EPI) (test co de = 27091) 69 ML/MIN/1.73 CALC BUN/CREAT (test code = [...] (test code = 2219) 11 U/L Chris [id number] 00:00:00* Test Item Value Reference Range Interpretation Comme nts TSH, THIRD GENERATION (test code = 2821) 0.631 UIU/ML Chris DohertyLIPID [id number] 00:00:00* Test Item Value Reference Range Interpretation Comme nts CHOLESTEROL (test code = 2210) 253 MG/DL TRIGLYCERIDES (test code = 2232) 164 MG/DL HDL CHOLESTEROL (test code = 2220) 94 MG/DL CALC LDL CHOL (test code = 2237) 131 MG/DL RISK RATIO LDL/HDL (test cod e = 2238) 1.39 RATIO Chris DohertyCBC W/AUTO [id number] 00:00:00* Test Item Value Reference Range Interpretation [...] ABS NUCLEATED RBCS (test cod e = 34421) 0.00 K/UL Chris DohertyHEMOGLOBIN [id number] 00:00:00* Test Item Value Reference Range Interpretation Comme nts HEMOGLOBIN A1c (test code = 26783) 6.1 % Chris DohertyCOMPREHENSIVE METABOLIC [id number] 00:00:00* Test Item Value Reference Range Interpretation Comme nts GLUCOSE (test code = 2217) 101 MG/DL BUN (test code = 2208) 20 MG/DL CREATININE (test code = 2214) 0.99 MG/DL eGFR (2020 CKD-EPI) (test co de = 86400) 69 ML/MIN/1.73 CALC BUN/CREAT (test code = [...] (test code = 2219) 11 U/L Chris [id number] 00:00:00* Test Item Value Reference Range Interpretation Comme [facility] TSH, THIRD GENERATION (test code = 2821) 0.631 UIU/ML Chris DohertyLIPID [id number] 00:00:00* Test Item Value Reference Range Interpretation Comme nts CHOLESTEROL (test code = 2210) 253 MG/DL TRIGLYCERIDES (test code = 2232) 164 MG/DL HDL CHOLESTEROL (test code = 2220) 94 MG/DL CALC LDL CHOL (test code = 2237) 131 MG/DL RISK RATIO LDL/HDL (test cod e = 2238) 1.39 RATIO Chris DohertyCBC W/AUTO [id number] 00:00:00* Test Item Value Reference Range Interpretation [...] ABS NUCLEATED RBCS (test cod e = 71824) 0.00 K/UL Chris DohertyHEMOGLOBIN [id number] 00:00:00* Test Item Value Reference Range Interpretation Comme nts HEMOGLOBIN A1c (test code = 11190) 6.1 % Chris DohertyCOMPREHENSIVE METABOLIC [id number] 00:00:00* Test Item Value Reference Range Interpretation Comme nts GLUCOSE (test code = 2217) 101 MG/DL BUN (test code = 2208) 20 MG/DL CREATININE (test code = 2214) 0.99 MG/DL eGFR (2020 CKD-EPI) (test co de = 02403) 69 ML/MIN/1.73 CALC BUN/CREAT (test code = [...] (test code = 2219) 11 U/L Chris [id number] 00:00:00* Test Item Value Reference Range Interpretation Comme nts TSH, THIRD GENERATION (test code = 2821) 0.631 UIU/ML Chris DohertyLIPID [id number] 00:00:00* Test Item Value Reference Range Interpretation Comme nts CHOLESTEROL (test code = 2210) 253 MG/DL TRIGLYCERIDES (test code = 2232) 164 MG/DL HDL CHOLESTEROL (test code = 2220) 94 MG/DL CALC LDL CHOL (test code = 2237) 131 MG/DL RISK RATIO LDL/HDL (test cod e = 2238) 1.39 RATIO Chris DohertyCBC W/AUTO [id number] 00:00:00* Test Item Value Reference Range Interpretation [...] ABS NUCLEATED RBCS (test cod e = 43612) 0.00 K/UL Chris DohertyHEMOGLOBIN [id number] 00:00:00* Test Item Value Reference Range Interpretation Comme nts HEMOGLOBIN A1c (test code = 83652) 6.1 % Chris DohertyCOMPREHENSIVE METABOLIC [id number] 00:00:00* Test Item Value Reference Range Interpretation Comme nts GLUCOSE (test code = 2217) 101 MG/DL BUN (test code = 2208) 20 MG/DL CREATININE (test code = 2214) 0.99 MG/DL eGFR (2020 CKD-EPI) (test co de = 21474) 69 ML/MIN/1.73 CALC BUN/CREAT (test code = [...] (test code = 2219) 11 U/L Chris [id number] 00:00:00* Test Item Value Reference Range Interpretation Comme nts TSH, THIRD GENERATION (test code = 2821) 0.631 UIU/ML Chris DohertyLIPID [id number] 00:00:00* Test Item Value Reference Range Interpretation Comme nts CHOLESTEROL (test code = 2210) 253 MG/DL TRIGLYCERIDES (test code = 2232) 164 MG/DL HDL CHOLESTEROL (test code = 2220) 94 MG/DL CALC LDL CHOL (test code = 2237) 131 MG/DL RISK RATIO LDL/HDL (test cod e = 2238) 1.39 RATIO Chrsi DohertyCBC W/AUTO [id number] 00:00:00* Test Item Value Reference Range Interpretation [...] ABS NUCLEATED RBCS (test cod e = 09567) 0.00 K/UL Chris DohertyOCCULT BLD,FECAL,IMMUNOASSAY [id number] 11:30:47* Test Item Value Reference Range Interpretation Comme nts OCCULT BLD, FECAL (test code = 58989) NEGATIVE NEGATIVE CPL has important pathology staff changes effective 04/18/2022. New pathology staff will provide uninterrupted, excellent patient care and clinical consultation. See URL: [email or web address]. UNLESS OTHERWISE INDICATED, ALL TESTING PERFORMED AT [facility] [address] [place] [id number] CLIENT REPRESENTATIVE: CHRISTINA STEVENS M.D. [place] NUMBER [id number] [facility] [place]. [id number] OCCULT BLD,FECAL,IMMUNOASSAY [id number] 00:00:00* Test Item Value Reference Range Interpretation Comme nts OCCULT BLD, FECAL (test code = 24533) NEGATIVE Chris F AustinOCCULT BLD,FECAL,IMMUNOASSAY [id number] 00:00:00* Test Item Value Reference Range Interpretation Comme nts OCCULT BLD, FECAL (test code = 67723) NEGATIVE Chris F AustinOCCULT BLD,FECAL,IMMUNOASSAY [id number] 00:00:00* Test Item Value Reference Range Interpretation Comme nts OCCULT BLD, FECAL (test code = 82570) NEGATIVE Chris F AustinOCCULT BLD,FECAL,IMMUNOASSAY [id number] 00:00:00* Test Item Value Reference Range Interpretation Comme nts OCCULT BLD, FECAL (test code = 18581) NEGATIVE Chris F AustinOCCULT BLD,FECAL,IMMUNOASSAY [id number] 00:00:00* Test Item Value Reference Range Interpretation Comme nts OCCULT BLD, FECAL (test code = 86343) NEGATIVE Chris F AustinOCCULT BLD,FECAL,IMMUNOASSAY [id number] 00:00:00* Test Item Value Reference Range Interpretation Comme nts OCCULT BLD, FECAL (test code = 20175) NEGATIVE Chris F AustinOCCULT BLD,FECAL,IMMUNOASSAY [id number] 00:00:00* Test Item Value Reference Range Interpretation Comme nts OCCULT BLD, FECAL (test code = 86537) NEGATIVE Chris F AustinOCCULT BLD,FECAL,IMMUNOASSAY [id number] 00:00:00* Test Item Value Reference Range Interpretation Comme nts OCCULT BLD, FECAL (test code = 91881) NEGATIVE Chris F AustinOCCULT BLD,FECAL,IMMUNOASSAY [id number] 00:00:00* Test Item Value Reference Range Interpretation Comme nts OCCULT BLD, FECAL (test code = 96118) NEGATIVE Chris F AustinOCCULT BLD,FECAL,IMMUNOASSAY [id number] 00:00:00* Test Item Value Reference Range Interpretation Comme nts OCCULT BLD, FECAL (test code = 66857) NEGATIVE Chris F AustinOCCULT BLD,FECAL,IMMUNOASSAY [id number] 00:00:00* Test Item Value Reference Range Interpretation Comme nts OCCULT BLD, FECAL (test code = 87152) NEGATIVE Chris F AustinOCCULT BLD,FECAL,IMMUNOASSAY [id number] 00:00:00* Test Item Value Reference Range Interpretation Comme nts OCCULT BLD, FECAL (test code = 19137) NEGATIVE Chris F AustinOCCULT BLD,FECAL,IMMUNOASSAY [id number] 00:00:00* Test Item Value Reference Range Interpretation Comme nts OCCULT BLD, FECAL (test code = 10445) NEGATIVE Chris F AustinOCCULT BLD,FECAL,IMMUNOASSAY [id number] 00:00:00* Test Item Value Reference Range Interpretation Comme nts OCCULT BLD, FECAL (test code = 61353) NEGATIVE Chris F AustinRSV BY [id number] 00:00:00* Test Item Value Reference Range Interpretation Comme nts RSV BY DFA (test code = 82455) Negative SOURCE (test code = 15706) Not Provided Chris F AustinRSV BY [id number] 00:00:00* Test Item Value Reference Range Interpretation Comme nts RSV BY DFA (test code = 56228) Negative SOURCE (test code = 82066) Not Provided Chris F AustinRSV BY [id number] 00:00:00* Test Item Value Reference Range Interpretation Comme nts RSV BY DFA (test code = 89844) Negative SOURCE (test code = 04174) Not Provided Chris F AustinRSV BY [id number] 00:00:00* Test Item Value Reference Range Interpretation Comme nts RSV BY DFA (test code = 09304) Negative SOURCE (test code = 59666) Not Provided RSV BY [id number] 00:00:00* Test Item Value Reference Range Interpretation Comme nts RSV BY DFA (test code = 85301) Negative SOURCE (test code = 65860) Not Provided Chris F AustinRSV BY [id number] 00:00:00* Test Item Value Reference Range Interpretation Comme nts RSV BY DFA (test code = 51725) Negative SOURCE (test code = 77051) Not Provided RSV BY [id number] 00:00:00* Test Item Value Reference Range Interpretation Comme nts RSV BY DFA (test code = 41623) Negative SOURCE (test code = 96701) Not Provided Chris F AustinRSV BY [id number] 00:00:00* Test Item Value Reference Range Interpretation Comme nts RSV BY DFA (test code = 58631) Negative SOURCE (test code = 79868) Not Provided Chris F AustinRSV BY [id number] 00:00:00* Test Item Value Reference Range Interpretation Comme nts RSV BY DFA (test code = 71684) Negative SOURCE (test code = 97434) Not Provided Chris F AustinRSV BY [id number] 00:00:00* Test Item Value Reference Range Interpretation Comme nts RSV BY DFA (test code = 51460) Negative SOURCE (test code = 97642) Not Provided Chris F AustinRSV BY [id number] 00:00:00* Test Item Value Reference Range Interpretation Comme nts RSV BY DFA (test code = 38914) Negative SOURCE (test code = 45347) Not Provided Chris F AustinRSV BY [id number] 00:00:00* Test Item Value Reference Range Interpretation Comme nts RSV BY DFA (test code = 53356) Negative SOURCE (test code = 20905) Not Provided Chris F AustinRSV BY [id number] 00:00:00* Test Item Value Reference Range Interpretation Comme nts RSV BY DFA (test code = 81272) Negative SOURCE (test code = 96724) Not Provided Chris F AustinRSV BY [id number] 00:00:00* Test Item Value Reference Range Interpretation Comme nts RSV BY DFA (test code = 16168) Negative SOURCE (test code = 01857) Not Provided Chris F AustinRSV BY [id number] 00:00:00* Test Item Value Reference Range Interpretation Comme nts RSV BY DFA (test code = 32352) Negative SOURCE (test code = 34554) Not Provided Chris Brandt AustinRSV BY [id number] 00:00:00* Test Item Value Reference Range Interpretation Comme nts RSV BY DFA (test code = 81750) Negative SOURCE (test code = 27179) Not Provided Chris Brandt XrtjmaONYM-IyM-4 (COVID-19) by RT-PCR (HIGH RISK)2020-11-23 00:00:00* Test Item Value Reference Range Interpretation Comme nts SARS-CoV-2 INTERPRETATION (t est code = 37368) NEGATIVE SOURCE (test code = 04778) NOT SPECIFIED Chris Brandt KkxobuJEGH-IhB-2 (COVID-19) by RT-PCR (HIGH RISK)2020-11-23 00:00:00* Test Item Value Reference Range Interpretation Comme nts SARS-CoV-2 INTERPRETATION (t est code = 14700) NEGATIVE SOURCE (test code = 44880) NOT SPECIFIED Chris Brandt NwhwwlXVZS-MuC-9 (COVID-19) by RT-PCR (HIGH RISK)2020-11-23 00:00:00* Test Item Value Reference Range Interpretation Comme nts SARS-CoV-2 INTERPRETATION (t est code = 56077) NEGATIVE SOURCE (test code = 06821) NOT SPECIFIED Chris Brandt LdfgtySNZE-PiZ-4 (COVID-19) by RT-PCR (HIGH RISK)2020-11-23 00:00:00* Test Item Value Reference Range Interpretation Comme nts SARS-CoV-2 INTERPRETATION (t est code = 17057) NEGATIVE SOURCE (test code = 45109) NOT SPECIFIED SARS-CoV-2 (COVID-19) by RT-PCR (HIGH RISK)2020-11-23 00:00:00* Test Item Value Reference Range Interpretation Comme nts SARS-CoV-2 INTERPRETATION (t est code = 93836) NEGATIVE SOURCE (test code = 76759) NOT SPECIFIED Chris F GrxikfIMFY-ChU-7 (COVID-19) by RT-PCR (HIGH RISK)2020-11-23 00:00:00* Test Item Value Reference Range Interpretation Comme nts SARS-CoV-2 INTERPRETATION (t est code = 17965) NEGATIVE SOURCE (test code = 20118) NOT SPECIFIED SARS-CoV-2 (COVID-19) by RT-PCR (HIGH RISK)2020-11-23 00:00:00* Test Item Value Reference Range Interpretation Comme nts SARS-CoV-2 INTERPRETATION (t est code = 97904) NEGATIVE SOURCE (test code = 98508) NOT SPECIFIED Chris Brandt BmjjiuJSCJ-XsZ-6 (COVID-19) by RT-PCR (HIGH RISK)2020-11-23 00:00:00* Test Item Value Reference Range Interpretation Comme nts SARS-CoV-2 INTERPRETATION (t est code = 65852) NEGATIVE SOURCE (test code = 55337) NOT SPECIFIED Chris F PhrldrEFEK-AtZ-1 (COVID-19) by RT-PCR (HIGH RISK)2020-11-23 00:00:00* Test Item Value Reference Range Interpretation Comme nts SARS-CoV-2 INTERPRETATION (t est code = 42792) NEGATIVE SOURCE (test code = 96487) NOT SPECIFIED Chris F MfbqhnVOHJ-WgI-9 (COVID-19) by RT-PCR (HIGH RISK)2020-11-23 00:00:00* Test Item Value Reference Range Interpretation Comme nts SARS-CoV-2 INTERPRETATION (t est code = 92213) NEGATIVE SOURCE (test code = 56302) NOT SPECIFIED Chris F VvcdwrSFGA-EaM-7 (COVID-19) by RT-PCR (HIGH RISK)2020-11-23 00:00:00* Test Item Value Reference Range Interpretation Comme nts SARS-CoV-2 INTERPRETATION (t est code = 82525) NEGATIVE SOURCE (test code = 52848) NOT SPECIFIED Chris F PqcctlRQNF-BiQ-2 (COVID-19) by RT-PCR (HIGH RISK)2020-11-23 00:00:00* Test Item Value Reference Range Interpretation Comme nts SARS-CoV-2 INTERPRETATION (t est code = 29223) NEGATIVE SOURCE (test code = 76970) NOT SPECIFIED Chris F MtdkqpQIDO-DbM-9 (COVID-19) by RT-PCR (HIGH RISK)2020-11-23 00:00:00* Test Item Value Reference Range Interpretation Comme nts SARS-CoV-2 INTERPRETATION (t est code = 23459) NEGATIVE SOURCE (test code = 51163) NOT SPECIFIED Chris F ShnvxeOBRO-EtR-1 (COVID-19) by RT-PCR (HIGH RISK)2020-11-23 00:00:00* Test Item Value Reference Range Interpretation Comme nts SARS-CoV-2 INTERPRETATION (t est code = 39220) NEGATIVE SOURCE (test code = 00279) NOT SPECIFIED Chris DohertySARS-CoV-2 (COVID-19) by RT-PCR (HIGH RISK)2020-11-23 00:00:00* Test Item Value Reference Range Interpretation Comme nts SARS-CoV-2 INTERPRETATION (t est code = 56774) NEGATIVE SOURCE (test code = 91886) NOT SPECIFIED Chris Brandt RsupctLYYI-NjJ-5 (COVID-19) by RT-PCR (HIGH RISK)2020-11-23 00:00:00* Test Item Value Reference Range Interpretation Comme nts SARS-CoV-2 INTERPRETATION (t est code = 00944) NEGATIVE SOURCE (test code = 09402) NOT SPECIFIED Chris Brandt [id number] 00:00:00* Test Item Value Reference Range Interpretation Comme nts TSH, THIRD GENERATION (test code = 2821) 1.080 UIU/ML Chris DohertyCBC W/AUTO [id number] 00:00:00* Test Item Value Reference Range Interpretation [...] ABS NUCLEATED RBCS (test cod e = 44814) 0.00 K/UL Chris DohertyVITAMIN D, 25 [id number] 00:00:00* Test Item Value Reference Range Interpretation Comme nts VITAMIN D, 25 OH (test code = 4958) 15 NG/ML Chris [id number] 00:00:00* Test Item Value Reference Range Interpretation Comme nts TSH, THIRD GENERATION (test code = 2821) 1.080 UIU/ML Chris DohertyCBC W/AUTO [id number] 00:00:00* Test Item Value Reference Range Interpretation [...] ABS NUCLEATED RBCS (test cod e = 21488) 0.00 K/UL Chris DohertyVITAMIN D, 25 [id number] 00:00:00* Test Item Value Reference Range Interpretation Comme nts VITAMIN D, 25 OH (test code = 4958) 15 NG/ML Chris [id number] 00:00:00* Test Item Value Reference Range Interpretation Comme nts TSH, THIRD GENERATION (test code = 2821) 1.080 UIU/ML Chris DohertyCBC W/AUTO [id number] 00:00:00* Test Item Value Reference Range Interpretation [...] ABS NUCLEATED RBCS (test cod e = 88641) 0.00 K/UL Chris DohertyVITAMIN D, 25 [id number] 00:00:00* Test Item Value Reference Range Interpretation Comme nts VITAMIN D, 25 OH (test code = 4958) 15 NG/ML Chris [id number] 00:00:00* Test Item Value Reference Range Interpretation Comme nts TSH, THIRD GENERATION (test code = 2821) 1.080 UIU/ML Chris [id number] 00:00:00* Test Item Value Reference Range Interpretation Comme nts TSH, THIRD GENERATION (test code = 2821) 1.080 UIU/ML CBC W/AUTO [id number] 00:00:00* Test Item Value Reference Range Interpretation [...] ABS NUCLEATED RBCS (test cod e = 19331) 0.00 K/UL CBC W/AUTO [id number] 00:00:00* Test Item Value Reference Range Interpretation [...] ABS NUCLEATED RBCS (test cod e = 07466) 0.00 K/UL Chris DohertyVITAMIN D, 25 [id number] 00:00:00* Test Item Value Reference Range Interpretation Comme nts VITAMIN D, 25 OH (test code = 4958) 15 NG/ML VITAMIN D, 25 [id number] 00:00:00* Test Item Value Reference Range Interpretation Comme nts VITAMIN D, 25 OH (test code = 4958) 15 NG/ML Chris [id number] 00:00:00* Test Item Value Reference Range Interpretation Comme [facility] TSH, THIRD GENERATION (test code = 2821) 1.080 UIU/ML [id number] 00:00:00* Test Item Value Reference Range Interpretation Comme nts TSH, THIRD GENERATION (test code = 2821) 1.080 UIU/ML Chris DohertyCBC W/AUTO [id number] 00:00:00* Test Item Value Reference Range Interpretation [...] ABS NUCLEATED RBCS (test cod e = 67438) 0.00 K/UL VITAMIN D, 25 [id number] 00:00:00* Test Item Value Reference Range Interpretation Comme nts VITAMIN D, 25 OH (test code = 4958) 15 NG/ML CBC W/AUTO [id number] 00:00:00* Test Item Value Reference Range Interpretation [...] ABS NUCLEATED RBCS (test cod e = 09041) 0.00 K/UL Chris Brandt ChasVITAMIN D, 25 [id number] 00:00:00* Test Item Value Reference Range Interpretation Comme nts VITAMIN D, 25 OH (test code = 4958) 15 NG/ML Chris Brandt [id number] 00:00:00* Test Item Value Reference Range Interpretation Comme nts TSH, THIRD GENERATION (test code = 2821) 1.080 UIU/ML Chris Brandt ChasCBC W/AUTO [id number] 00:00:00* Test Item Value Reference Range Interpretation [...] ABS NUCLEATED RBCS (test cod e = 99324) 0.00 K/UL Chris Brandt ChasVITAMIN D, 25 [id number] 00:00:00* Test Item Value Reference Range Interpretation Comme nts VITAMIN D, 25 OH (test code = 4958) 15 NG/ML Chris Brandt [id number] 00:00:00* Test Item Value Reference Range Interpretation Comme nts TSH, THIRD GENERATION (test code = 2821) 1.080 UIU/ML Chris Brandt ChasCBC W/AUTO [id number] 00:00:00* Test Item Value Reference Range Interpretation [...] ABS NUCLEATED RBCS (test cod e = 52734) 0.00 K/UL Chris DohertyVITAMIN D, 25 [id number] 00:00:00* Test Item Value Reference Range Interpretation Comme nts VITAMIN D, 25 OH (test code = 4958) 15 NG/ML Chris [id number] 00:00:00* Test Item Value Reference Range Interpretation Comme nts TSH, THIRD GENERATION (test code = 2821) 1.080 UIU/ML Chris DohertyCBC W/AUTO [id number] 00:00:00* Test Item Value Reference Range Interpretation [...] ABS NUCLEATED RBCS (test cod e = 85260) 0.00 K/UL Chris DohertyVITAMIN D, 25 [id number] 00:00:00* Test Item Value Reference Range Interpretation Comme nts VITAMIN D, 25 OH (test code = 4958) 15 NG/ML Chris [id number] 00:00:00* Test Item Value Reference Range Interpretation Comme nts TSH, THIRD GENERATION (test code = 2821) 1.080 UIU/ML Chris DohertyCBC W/AUTO [id number] 00:00:00* Test Item Value Reference Range Interpretation [...] ABS NUCLEATED RBCS (test cod e = 87798) 0.00 K/UL Chris DohertyVITAMIN D, 25 [id number] 00:00:00* Test Item Value Reference Range Interpretation Comme nts VITAMIN D, 25 OH (test code = 4958) 15 NG/ML Chris [id number] 00:00:00* Test Item Value Reference Range Interpretation Comme nts TSH, THIRD GENERATION (test code = 2821) 1.080 UIU/ML Chris DohertyCBC W/AUTO [id number] 00:00:00* Test Item Value Reference Range Interpretation [...] ABS NUCLEATED RBCS (test cod e = 33676) 0.00 K/UL Chris DohertyVITAMIN D, 25 [id number] 00:00:00* Test Item Value Reference Range Interpretation Comme nts VITAMIN D, 25 OH (test code = 4958) 15 NG/ML Chris [id number] 00:00:00* Test Item Value Reference Range Interpretation Comme nts TSH, THIRD GENERATION (test code = 2821) 1.080 UIU/ML Chris DohertyCBC W/AUTO [id number] 00:00:00* Test Item Value Reference Range Interpretation [...] ABS NUCLEATED RBCS (test cod e = 70526) 0.00 K/UL Chris DohertyVITAMIN D, 25 [id number] 00:00:00* Test Item Value Reference Range Interpretation Comme nts VITAMIN D, 25 OH (test code = 4958) 15 NG/ML Chris [id number] 00:00:00* Test Item Value Reference Range Interpretation Comme nts TSH, THIRD GENERATION (test code = 2821) 1.080 UIU/ML Chris DohertyCBC W/AUTO [id number] 00:00:00* Test Item Value Reference Range Interpretation [...] ABS NUCLEATED RBCS (test cod e = 15198) 0.00 K/UL Chris DohertyVITAMIN D, 25 [id number] 00:00:00* Test Item Value Reference Range Interpretation Comme nts VITAMIN D, 25 OH (test code = 4958) 15 NG/ML Chris [id number] 00:00:00* Test Item Value Reference Range Interpretation Comme nts TSH, THIRD GENERATION (test code = 2821) 1.080 UIU/ML Chris DohertyCBC W/AUTO [id number] 00:00:00* Test Item Value Reference Range Interpretation [...] ABS NUCLEATED RBCS (test cod e = 86194) 0.00 K/UL Chris DohertyVITAMIN D, 25 [id number] 00:00:00* Test Item Value Reference Range Interpretation Comme nts VITAMIN D, 25 OH (test code = 4958) 15 NG/ML Chris [id number] 00:00:00* Test Item Value Reference Range Interpretation Comme nts TSH, THIRD GENERATION (test code = 2821) 1.080 UIU/ML Chris DohertyCBC W/AUTO [id number] 00:00:00* Test Item Value Reference Range Interpretation [...] ABS NUCLEATED RBCS (test cod e = 48779) 0.00 K/UL Chris Brandt ChasVITAMIN D, 25 [id number] 00:00:00* Test Item Value Reference Range Interpretation Comme nts VITAMIN D, 25 OH (test code = 4958) 15 NG/ML Chris Brandt IkmvspWCLT-MLW-2 (COVID19), NAAT [ADDED]2020-03-04 00:00:00* Test Item Value Reference Range Interpretation Comme nts SARS-CoV-2 INTERPRETATION (t est code = 88265) POSITIVE SOURCE (test code = 61306) NOT SPECIFIED Chris Brandt TxrcusLURC-OFU-3 (COVID19), NAAT [ADDED]2020-03-04 00:00:00* Test Item Value Reference Range Interpretation Comme nts SARS-CoV-2 INTERPRETATION (t est code = 25253) POSITIVE SOURCE (test code = 38277) NOT SPECIFIED Chris Brandt MrxxwpLBLG-UMV-4 (COVID19), NAAT [ADDED]2020-03-04 00:00:00* Test Item Value Reference Range Interpretation Comme nts SARS-CoV-2 INTERPRETATION (t est code = 32467) POSITIVE SOURCE (test code = 40045) NOT SPECIFIED Chris Brandt HgujrkEFCQ-NJT-1 (COVID19), NAAT [ADDED]2020-03-04 00:00:00* Test Item Value Reference Range Interpretation Comme nts SARS-CoV-2 INTERPRETATION (t est code = 67281) POSITIVE SOURCE (test code = 69398) NOT SPECIFIED SARS-COV-2 (COVID19), NAAT [ADDED]2020-03-04 00:00:00* Test Item Value Reference Range Interpretation Comme nts SARS-CoV-2 INTERPRETATION (t est code = 59569) POSITIVE SOURCE (test code = 64377) NOT SPECIFIED Chris Brandt CksafiZTCI-LGH-5 (COVID19), NAAT [ADDED]2020-03-04 00:00:00* Test Item Value Reference Range Interpretation Comme nts SARS-CoV-2 INTERPRETATION (t est code = 39089) POSITIVE SOURCE (test code = 73530) NOT SPECIFIED SARS-COV-2 (COVID19), NAAT [ADDED]2020-03-04 00:00:00* Test Item Value Reference Range Interpretation Comme nts SARS-CoV-2 INTERPRETATION (t est code = 49375) POSITIVE SOURCE (test code = 00068) NOT SPECIFIED Chris Brandt VuzqzcLCSN-YCJ-7 (COVID19), NAAT [ADDED]2020-03-04 00:00:00* Test Item Value Reference Range Interpretation Comme nts SARS-CoV-2 INTERPRETATION (t est code = 12014) POSITIVE SOURCE (test code = 87460) NOT SPECIFIED Chris Brandt KycyquKDQZ-SJZ-2 (COVID19), NAAT [ADDED]2020-03-04 00:00:00* Test Item Value Reference Range Interpretation Comme nts SARS-CoV-2 INTERPRETATION (t est code = 23792) POSITIVE SOURCE (test code = 86480) NOT SPECIFIED Chris Brandt BzchwrRXRT-AQW-7 (COVID19), NAAT [ADDED]2020-03-04 00:00:00* Test Item Value Reference Range Interpretation Comme nts SARS-CoV-2 INTERPRETATION (t est code = 53892) POSITIVE SOURCE (test code = 50487) NOT SPECIFIED Chris Brandt TpzuohZBOF-XTU-2 (COVID19), NAAT [ADDED]2020-03-04 00:00:00* Test Item Value Reference Range Interpretation Comme nts SARS-CoV-2 INTERPRETATION (t est code = 09938) POSITIVE SOURCE (test code = 98770) NOT SPECIFIED Chris Brandt NoytrhXPFG-ACI-2 (COVID19), NAAT [ADDED]2020-03-04 00:00:00* Test Item Value Reference Range Interpretation Comme nts SARS-CoV-2 INTERPRETATION (t est code = 45468) POSITIVE SOURCE (test code = 88047) NOT SPECIFIED Chris Brandt FpqvltANTF-FUP-7 (COVID19), NAAT [ADDED]2020-03-04 00:00:00* Test Item Value Reference Range Interpretation Comme nts SARS-CoV-2 INTERPRETATION (t est code = 55527) POSITIVE SOURCE (test code = 05671) NOT SPECIFIED Chris Brandt KuwbssPXPD-GTI-3 (COVID19), NAAT [ADDED]2020-03-04 00:00:00* Test Item Value Reference Range Interpretation Comme nts SARS-CoV-2 INTERPRETATION (t est code = 98712) POSITIVE SOURCE (test code = 17282) NOT SPECIFIED Chris Brandt NltyfcLMBV-CXP-5 (COVID19), NAAT [ADDED]2020-03-04 00:00:00* Test Item Value Reference Range Interpretation Comme nts SARS-CoV-2 INTERPRETATION (t est code = 35405) POSITIVE SOURCE (test code = 15116) NOT SPECIFIED Chris Brandt ZqtoqpMBCL-NNU-9 (COVID19), NAAT [ADDED]2020-03-04 00:00:00* Test Item Value Reference Range Interpretation Comme nts SARS-CoV-2 INTERPRETATION (t est code = 37786) POSITIVE SOURCE (test code = 64693) NOT SPECIFIED Chris Brandt Chas- XR CHEST 2 [id number] 11:11:00 [facility] 1970 Sex: F FAX: Jn Barton MD [phone] [place]: St: REG Name: AMADA RIVERA [facility] : 1970 Age/S: 49/F [address] [place] [address] Unit #: [id number] Loc: [place] [address] Phys: Jn Barrios MD Acct: [id number] Dis Date: Status: REG CLI PHONE #: [phone] Exam Date: 12/08/2019 1111 FAX #: [phone] Reason: R06.02, SHORTNESS OF BREATH. EXAMS: CPT CODE: [id number] XR CHEST 2 V 46751 CLINICAL HISTORY: R06.02, SHORTNESS OF BREATH. COMPARISON: NONE PA and lateral films of the chest demonstratethat heart size is normal. Lung kaur are clear. No evidence of pneumonia or congestive failure isseen. Regional skeletal structures demonstrate no acute abnormality. IMPRESSION: No evidence of pneu monia or congestive failure is seen. at 1111 Reported and signed by: Kurt Ortega M.D. CC: Jn Barrios MD Technologist: RT Gomez(R) Trnscrd Date/Time/By: 12/08/2019 (1111) : By: Juan Orig Print D/T: S: 12/08/2019 (1418)PAGE 1 Signed LmxrrfQVOD-NuP-7 (COVID-19) by RT-PCR (HIGH RISK)2019-09-18 00:00:00* Test Item Value Reference Range Interpretation Comme nts SARS-CoV-2 INTERPRETATION (t est code = 42479) NEGATIVE SOURCE (test code = 00790) NOT SPECIFIED Chris Brandt NvftniUFWB-GnZ-4 (COVID-19) by RT-PCR (HIGH RISK)2019-09-18 00:00:00* Test Item Value Reference Range Interpretation Comme nts SARS-CoV-2 INTERPRETATION (t est code = 28511) NEGATIVE SOURCE (test code = 07952) NOT SPECIFIED Chris F FhyfuoNEVB-VgL-1 (COVID-19) by RT-PCR (HIGH RISK)2019-09-18 00:00:00* Test Item Value Reference Range Interpretation Comme nts SARS-CoV-2 INTERPRETATION (t est code = 96506) NEGATIVE SOURCE (test code = 20853) NOT SPECIFIED Chris F EbfhruCEBZ-MgE-3 (COVID-19) by RT-PCR (HIGH RISK)2019-09-18 00:00:00* Test Item Value Reference Range Interpretation Comme nts SARS-CoV-2 INTERPRETATION (t est code = 14532) NEGATIVE SOURCE (test code = 68392) NOT SPECIFIED SARS-CoV-2 (COVID-19) by RT-PCR (HIGH RISK)2019-09-18 00:00:00* Test Item Value Reference Range Interpretation Comme nts SARS-CoV-2 INTERPRETATION (t est code = 87544) NEGATIVE SOURCE (test code = 68939) NOT SPECIFIED Chris Brandt OgrjomQRKC-RsB-1 (COVID-19) by RT-PCR (HIGH RISK)2019-09-18 00:00:00* Test Item Value Reference Range Interpretation Comme nts SARS-CoV-2 INTERPRETATION (t est code = 52179) NEGATIVE SOURCE (test code = 30120) NOT SPECIFIED SARS-CoV-2 (COVID-19) by RT-PCR (HIGH RISK)2019-09-18 00:00:00* Test Item Value Reference Range Interpretation Comme nts SARS-CoV-2 INTERPRETATION (t est code = 63435) NEGATIVE SOURCE (test code = 08936) NOT SPECIFIED Chris F PlrqusEAQN-ImE-9 (COVID-19) by RT-PCR (HIGH RISK)2019-09-18 00:00:00* Test Item Value Reference Range Interpretation Comme nts SARS-CoV-2 INTERPRETATION (t est code = 67505) NEGATIVE SOURCE (test code = 69812) NOT SPECIFIED Chris F ZuteecUJYB-XcF-4 (COVID-19) by RT-PCR (HIGH RISK)2019-09-18 00:00:00* Test Item Value Reference Range Interpretation Comme nts SARS-CoV-2 INTERPRETATION (t est code = 57456) NEGATIVE SOURCE (test code = 32937) NOT SPECIFIED Chris Brandt RvrbdrZKSR-DxB-3 (COVID-19) by RT-PCR (HIGH RISK)2019-09-18 00:00:00* Test Item Value Reference Range Interpretation Comme nts SARS-CoV-2 INTERPRETATION (t est code = 28096) NEGATIVE SOURCE (test code = 06834) NOT SPECIFIED Chris F NrrvbuUHXI-RnO-9 (COVID-19) by RT-PCR (HIGH RISK)2019-09-18 00:00:00* Test Item Value Reference Range Interpretation Comme nts SARS-CoV-2 INTERPRETATION (t est code = 27331) NEGATIVE SOURCE (test code = 71967) NOT SPECIFIED Chris Brandt XjaisfSSUV-YxM-7 (COVID-19) by RT-PCR (HIGH RISK)2019-09-18 00:00:00* Test Item Value Reference Range Interpretation Comme nts SARS-CoV-2 INTERPRETATION (t est code = 87543) NEGATIVE SOURCE (test code = 09945) NOT SPECIFIED Chris Brandt SotixiXBAZ-SkH-1 (COVID-19) by RT-PCR (HIGH RISK)2019-09-18 00:00:00* Test Item Value Reference Range Interpretation Comme nts SARS-CoV-2 INTERPRETATION (t est code = 95242) NEGATIVE SOURCE (test code = 38654) NOT SPECIFIED Chris Brandt OntrkjZSAV-AsI-0 (COVID-19) by RT-PCR (HIGH RISK)2019-09-18 00:00:00* Test Item Value Reference Range Interpretation Comme nts SARS-CoV-2 INTERPRETATION (t est code = 70642) NEGATIVE SOURCE (test code = 70514) NOT SPECIFIED Chris F JsyhiwCOXJ-JfO-8 (COVID-19) by RT-PCR (HIGH RISK)2019-09-18 00:00:00* Test Item Value Reference Range Interpretation Comme nts SARS-CoV-2 INTERPRETATION (t est code = 60201) NEGATIVE SOURCE (test code = 43389) NOT SPECIFIED Chris F WkgggdKMWW-DbI-1 (COVID-19) by RT-PCR (HIGH RISK)2019-09-18 00:00:00* Test Item Value Reference Range Interpretation Comme nts SARS-CoV-2 INTERPRETATION (t est code = 58639) NEGATIVE SOURCE (test code = 31881) NOT SPECIFIED Chris DohertyCOMPREHENSIVE METABOLIC [id number] 00:00:00* Test Item Value Reference Range Interpretation Comme nts GLUCOSE (test code = 2217) 83 MG/DL BUN (test code = 2208) 17 MG/DL CREATININE (test code = 2214) 0.96 MG/DL eGFR AMER. (test cod e = 99470) 80 ML/MIN/1.73 eGFR NON- AMER. (test code = 00257) 69 ML/MIN/1.73 CALC BUN/CREAT (test code = [...] = 2219) 15 U/L Chris DohertyCBC W/AUTO [id number] 00:00:00* Test Item Value Reference Range Interpretation [...] = 1015) 223 K/UL Chris DohertyCOMPREHENSIVE METABOLIC [id number] 00:00:00* Test Item Value Reference Range Interpretation Comme nts GLUCOSE (test code = 2217) 83 MG/DL BUN (test code = 2208) 17 MG/DL CREATININE (test code = 2214) 0.96 MG/DL eGFR AMER. (test cod e = 88293) 80 ML/MIN/1.73 eGFR NON- AMER. (test code = 46656) 69 ML/MIN/1.73 CALC BUN/CREAT (test code = [...] = 2219) 15 U/L Chris DohertyCBC W/AUTO [id number] 00:00:00* Test Item Value Reference Range Interpretation [...] = 1015) 223 K/UL Chris DohertyCOMPREHENSIVE METABOLIC [id number] 00:00:00* Test Item Value Reference Range Interpretation Comme nts GLUCOSE (test code = 2217) 83 MG/DL BUN (test code = 2208) 17 MG/DL CREATININE (test code = 2214) 0.96 MG/DL eGFR AMER. (test cod e = 12833) 80 ML/MIN/1.73 eGFR NON- AMER. (test code = 32526) 69 ML/MIN/1.73 CALC BUN/CREAT (test code = [...] = 2219) 15 U/L Chris DohertyCBC W/AUTO [id number] 00:00:00* Test Item Value Reference Range Interpretation [...] code = 1015) 223 K/UL CBC W/AUTO [id number] 00:00:00* Test Item Value Reference Range Interpretation [...] (test code = 1015) 223 K/UL Chris F ChasCOMPREHENSIVE METABOLIC [id number] 00:00:00* Test Item Value Reference Range Interpretation Comme nts GLUCOSE (test code = 2217) 83 MG/DL BUN (test code = 2208) 17 MG/DL CREATININE (test code = 2214) 0.96 MG/DL eGFR AMER. (test cod e = 40824) 80 ML/MIN/1.73 eGFR NON- AMER. (test code = 19418) 69 ML/MIN/1.73 CALC BUN/CREAT (test code = [...] code = 2219) 15 U/L COMPREHENSIVE METABOLIC [id number] 00:00:00* Test Item Value Reference Range Interpretation Comme nts GLUCOSE (test code = 2217) 83 MG/DL BUN (test code = 2208) 17 MG/DL CREATININE (test code = 2214) 0.96 MG/DL eGFR AMER. (test cod e = 09995) 80 ML/MIN/1.73 eGFR NON- AMER. (test code = 94370) 69 ML/MIN/1.73 CALC BUN/CREAT (test code = [...] 2219) 15 U/L Chris Brandt ChasCBC W/AUTO [id number] 00:00:00* Test Item Value Reference Range Interpretation [...] code = 1015) 223 K/UL COMPREHENSIVE METABOLIC [id number] 00:00:00* Test Item Value Reference Range Interpretation Comme nts GLUCOSE (test code = 2217) 83 MG/DL BUN (test code = 2208) 17 MG/DL CREATININE (test code = 2214) 0.96 MG/DL eGFR AMER. (test cod e = 57070) 80 ML/MIN/1.73 eGFR NON- AMER. (test code = 41422) 69 ML/MIN/1.73 CALC BUN/CREAT (test code = [...] code = 2219) 15 U/L CBC W/AUTO [id number] 00:00:00* Test Item Value Reference Range Interpretation [...] = 1015) 223 K/UL Chris DohertyCOMPREHENSIVE METABOLIC [id number] 00:00:00* Test Item Value Reference Range Interpretation Comme nts GLUCOSE (test code = 2217) 83 MG/DL BUN (test code = 2208) 17 MG/DL CREATININE (test code = 2214) 0.96 MG/DL eGFR AMER. (test cod e = 91600) 80 ML/MIN/1.73 eGFR NON- AMER. (test code = 33350) 69 ML/MIN/1.73 CALC BUN/CREAT (test code = [...] = 2219) 15 U/L Chris DohertyCBC W/AUTO [id number] 00:00:00* Test Item Value Reference Range Interpretation [...] = 1015) 223 K/UL Chris DohertyCOMPREHENSIVE METABOLIC [id number] 00:00:00* Test Item Value Reference Range Interpretation Comme nts GLUCOSE (test code = 2217) 83 MG/DL BUN (test code = 2208) 17 MG/DL CREATININE (test code = 2214) 0.96 MG/DL eGFR AMER. (test cod e = 24832) 80 ML/MIN/1.73 eGFR NON- AMER. (test code = 34697) 69 ML/MIN/1.73 CALC BUN/CREAT (test code = [...] 2219) 15 U/L Chris Rikki ChasCBC W/AUTO [id number] 00:00:00* Test Item Value Reference Range Interpretation [...] 1015) 223 K/UL Chris Brandt ChasCOMPREHENSIVE METABOLIC [id number] 00:00:00* Test Item Value Reference Range Interpretation Comme nts GLUCOSE (test code = 2217) 83 MG/DL BUN (test code = 2208) 17 MG/DL CREATININE (test code = 2214) 0.96 MG/DL eGFR AMER. (test cod e = 81103) 80 ML/MIN/1.73 eGFR NON- AMER. (test code = 37528) 69 ML/MIN/1.73 CALC BUN/CREAT (test code = [...] 2219) 15 U/L Chris Brandt ChasCBC W/AUTO [id number] 00:00:00* Test Item Value Reference Range Interpretation [...] = 1015) 223 K/UL Chris DohertyCOMPREHENSIVE METABOLIC [id number] 00:00:00* Test Item Value Reference Range Interpretation Comme nts GLUCOSE (test code = 2217) 83 MG/DL BUN (test code = 2208) 17 MG/DL CREATININE (test code = 2214) 0.96 MG/DL eGFR AMER. (test cod e = 82989) 80 ML/MIN/1.73 eGFR NON- AMER. (test code = 85240) 69 ML/MIN/1.73 CALC BUN/CREAT (test code = [...] = 2219) 15 U/L Chris DohertyCBC W/AUTO [id number] 00:00:00* Test Item Value Reference Range Interpretation [...] = 1015) 223 K/UL Chris DohertyCOMPREHENSIVE METABOLIC [id number] 00:00:00* Test Item Value Reference Range Interpretation Comme nts GLUCOSE (test code = 2217) 83 MG/DL BUN (test code = 2208) 17 MG/DL CREATININE (test code = 2214) 0.96 MG/DL eGFR AMER. (test cod e = 00914) 80 ML/MIN/1.73 eGFR NON- AMER. (test code = 77519) 69 ML/MIN/1.73 CALC BUN/CREAT (test code = [...] = 2219) 15 U/L Chris DohertyCBC W/AUTO [id number] 00:00:00* Test Item Value Reference Range Interpretation [...] = 1015) 223 K/UL Chris DohertyCOMPREHENSIVE METABOLIC [id number] 00:00:00* Test Item Value Reference Range Interpretation Comme nts GLUCOSE (test code = 2217) 83 MG/DL BUN (test code = 2208) 17 MG/DL CREATININE (test code = 2214) 0.96 MG/DL eGFR AMER. (test cod e = 70903) 80 ML/MIN/1.73 eGFR NON- AMER. (test code = 33859) 69 ML/MIN/1.73 CALC BUN/CREAT (test code = [...] = 2219) 15 U/L Chris DohertyCBC W/AUTO [id number] 00:00:00* Test Item Value Reference Range Interpretation [...] = 1015) 223 K/UL Chris DohertyCOMPREHENSIVE METABOLIC [id number] 00:00:00* Test Item Value Reference Range Interpretation Comme nts GLUCOSE (test code = 2217) 83 MG/DL BUN (test code = 2208) 17 MG/DL CREATININE (test code = 2214) 0.96 MG/DL eGFR AMER. (test cod e = 16814) 80 ML/MIN/1.73 eGFR NON- AMER. (test code = 85137) 69 ML/MIN/1.73 CALC BUN/CREAT (test code = [...] = 2219) 15 U/L Chris DohertyCBC W/AUTO [id number] 00:00:00* Test Item Value Reference Range Interpretation [...] = 1015) 223 K/UL Chris DohertyCOMPREHENSIVE METABOLIC [id number] 00:00:00* Test Item Value Reference Range Interpretation Comme nts GLUCOSE (test code = 2217) 83 MG/DL BUN (test code = 2208) 17 MG/DL CREATININE (test code = 2214) 0.96 MG/DL eGFR AMER. (test cod e = 57915) 80 ML/MIN/1.73 eGFR NON- AMER. (test code = 22111) 69 ML/MIN/1.73 CALC BUN/CREAT (test code = [...] (test code = 2219) 15 U/L Chris DoherytCBC W/AUTO [id number] 00:00:00* Test Item Value Reference Range Interpretation [...] = 1015) 223 K/UL Chris DohertyCOMPREHENSIVE METABOLIC [id number] 00:00:00* Test Item Value Reference Range Interpretation Comme nts GLUCOSE (test code = 2217) 83 MG/DL BUN (test code = 2208) 17 MG/DL CREATININE (test code = 2214) 0.96 MG/DL eGFR AMER. (test cod e = 61756) 80 ML/MIN/1.73 eGFR NON- AMER. (test code = 33792) 69 ML/MIN/1.73 CALC BUN/CREAT (test code = [...] = 2219) 15 U/L Chris DohertyCBC W/AUTO [id number] 00:00:00* Test Item Value Reference Range Interpretation [...] = 1015) 223 K/UL Chris DohertyCOMPREHENSIVE METABOLIC [id number] 00:00:00* Test Item Value Reference Range Interpretation Comme nts GLUCOSE (test code = 2217) 83 MG/DL BUN (test code = 2208) 17 MG/DL CREATININE (test code = 2214) 0.96 MG/DL eGFR AMER. (test cod e = 19132) 80 ML/MIN/1.73 eGFR NON- AMER. (test code = 76066) 69 ML/MIN/1.73 CALC BUN/CREAT (test code = [...] = 2219) 15 U/L Chris DohertyCBC W/AUTO [id number] 00:00:00* Test Item Value Reference Range Interpretation [...] code = 1015) 223 K/UL Chris Brandt Chas Notes Date/Time Note Provider Source Chris Aquiles [facility]2025-09-18 00:00:00 Chris Milan [facility]2025-08-25 [facility]2025-07-29 00:00:00 Chris F. [facility]2025-07-22 00:00:00 Chris Aquiles [facility]2025-05-29 00:00:00 Chris Aquiles [facility]2025-03-26 00:00:00 Chris Kwan [facility]2025-01-23 00:00:00 Chris Kwan [facility]2024-12-19 00:00:00 Chris F. [facility]2024-12-12 00:00[facility]2024-11-22 00:00:00 Chris Kwan [facility]2024-11-19 00:00:00 Chris Milan [facility]2024-11-13 08:00:00 [employer] 30-day event monitor mailed out to patient, patient is aware to put the monitor on same day as received. [employer] [id number] 00:00:00 [facility]2024-07-24 00:00:00 [facility]
[2024-11-17 15:43] LABS: Absolute Lymphocytes (CBC) 2.0 K/uL (0.7-4.9); Hematocrit 43.6 % (36.0-45.0); Hemoglobin 14.3 g/dL (12.0-15.0); MCH 31.1 pg (27.0-35.0); MCHC 32.7 g/dL (32.0-36.0); MCV 95.2 fL (80-100); MPV 7.6 fL (7.6-11.3); Nucleated RBC Absolute Count 0.0 (0-0); Nucleated Red Blood Cells % 0.1 % (0-0); RBC Red Blood Cell Count 4.58 M/uL (3.86-4.86); White Blood Count 10.80 thou/uL (4.3-10.9)
[2024-11-17 15:50] LABS: PT Prothrombin Time 11.6 SECONDS (10-13.0); Protime INR 1.03
[2024-11-17 15:51] LABS: PTT, Activated Partial Thromb 28.3 SECONDS (27.2-37.4)
[2024-11-17 16:09] LABS: ALT/SGPT 22.0 U/L (13-56); AST/SGOT 7.0 U/L (15-37); Anion Gap 11.2 mEq/L (5.0-15.0); BUN Blood Urea Nitrogen 17.0 mg/dL (7-18); Glucose Level 209.0 mg/dL (74-106); Potassium 4.2 mEq/L (3.5-5.1)
[2024-11-17 16:10] LABS: Albumin 3.0 g/dL (3.4-5.0); Albumin/Globulin Ratio 0.9 (1.1-1.8); Alkaline Phosphatase 77.0 U/L (45-117); Globulin 3.3 g/dL (2.3-3.5); NT PRO-BNP 57.0 pg/mL (<125); Troponin High Sensitivity 5.4 (<58.9)
[2024-11-17] MEDS ORDERED: NA CHLORIDE 0.9% 250 ML ONE (16:16)
[2024-11-17] MEDS ORDERED: CEFTRIAXONE 1000 MG/VIAL ONE (16:16)
[2024-11-17] MEDS ORDERED: WATER FOR INJ,STERILE 10 ML ONE (16:16)
[2024-11-17] MEDS ORDERED: AZITHROMYCIN 500 MG INJ IVPB ONE (16:16)
--- NOTE | 2024-11-17 16:22 | RAD REPORT ---
EXAMINATION: ONE VIEW CHEST XR CLINICAL INDICATION: Female, 54 years old.,Congestion;Cough;Dyspnea TECHNIQUE: Frontal chest projection is submitted. Examination is limited by patient positioning and t echnique. COMPARISON: 07/20/2024 FINDINGS: The lungs are diffusely emphysematous but grossly clear. No pneumothorax or sizable effusion. The he art is normal in size. Mediastinal contours are unremarkable. IMPRESSION: No acute intrathoracic abnormalities.
--- NOTE | 2024-11-17 16:25 | RAD REPORT ---
EXAMINATION: US LEFT LOWER EXTREMITY VENOUS DOPPLER CLINICAL INDICATION: [facility] [place] MAIN left leg PAIN Bed Name: 6 N TECHNIQUE: Complete bilateral duplex sonography of the LEFT lower extremity veins was performed. The examination included compression for vein patency, color Doppler imaging and flow augmentation in response to distal compression of the distal external iliac, common femoral, femoral, popliteal, tibi al, and great and small saphenous veins. COMPARISON: No prior exam. FINDINGS: Duplex sonography testing of the veins of the LEFT lower extremity was performed. Color flow imaging shows all veins to contain hypoechoic to isoechoic thrombus with segments of partial compressibility throughout the common femoral through posterior tibial veins. Thrombosed segments of some of the perforators and distal great saphenous vein as well. IMPRESSION: Deep venous thrombosis throughout the lower extremity as above. Venous thrombosis along s ome of the lower leg perforators and segments of the distal great saphenous vein as well.
[2024-11-17] MEDS ORDERED: ENOXAPARIN 100 MG/ML SYR SQ ONE (18:26)
--- NOTE | 2024-11-17 18:32 | RAD REPORT ---
EXAM: CT Chest For Pe Angio TECHNIQUE: CT angiogram of the chest was performed following intravenous contrast administration, inc luding sagittal and coronal as well as maximum intensity projection reformats. One or more of the following dose reduction techniques were used: Automated exposure control, adjustment of the mA and k V according to patient size, and iterative reconstruction. Unless otherwise specified, incidental findings do not require dedicated imaging follow-up. INDICATION: [facility] MA[facility] DYSPNEA Bed Name: 6 N COMPARISON: None. FINDINGS: LINES/TUBES: None. PULMONARY ARTERIES: Main pulmonary arteries are normal in caliber. No filling defects within the pul monary arteries to suggest pulmonary embolus. LUNGS AND AIRWAYS: Segmental atelectasis along the right middle lobe and left lingular segments. PLEURA: No effusion or pneumothorax. HEART AND MEDIASTINUM: The visualized thyroid gland is normal. No mediastinal, hilar, or axillary lym phadenopathy. Heart is unremarkable. No pericardial effusion. SOFT TISSUES AND BONES: No acute osseous abnormality. No significant soft tissue finding. UPPER ABDOMEN: Unremarkable. IMPRESSION: No evidence of acute central pulmonary emboli. No suspicious intrathoracic findings, apart from bilat eral atelectatic changes.
--- NOTE | 2024-11-17 18:47 | ER ---
Nurse's Notes [facility] Name: Roxanne Duran Age: 54 yrs Sex: Female : 1970 Arrival Date: 11/17/2024 Time: 15:09 Bed 6 Private MD: Diagnosis: Chest pain, unspecified;COPD/ Chronic obstructive pulmonary disease with (acute) exacerbation;Severe sepsis without septic shock Presentation: 11/17 15:17 Chief complaint: Patient states: CP X 2 weeks with SOB and cough X 3 days and L-sided ab3 headache/ L knee pain that began yesterday. Pt denies trauma/injury; states "I think I've got a blood clot". H/O COPD on supp O2 and endorses previous blood clots. Coronavirus screen: Vaccine status: Patient reports being unvaccinated. Ebola Screen: Patient negative for fever greater than or equal to 101.5 degrees Fahrenheit, and additional compatible Ebola Virus Disease symptoms Patient denies exposure to infectious person. Patient denies travel to an Ebola-affected area in the 21 days before illness onset. Initial Sepsis Screen: Does the patient meet any 2 criteria? HR > 90 bpm. No. Patient's initial sepsis screen is negative. Does the patient have a suspected source of infection? No. Patient's initial sepsis screen is negative. Risk Assessment: Do you want to hurt yourself or someone else? Patient reports no desire to harm self or others. Onset of symptoms was November 03, 2024. Care prior to arrival: 02 nc 2 lpm. 15:17 Method Of Arrival: EMS: [facility] ab3 15:17 Acuity: SHYLA 2 ab3 Triage Assessment: 15:25 General: Appears uncomfortable, Behavior is cooperative, appropriate for age. Pain: ab3 Complains of pain in left adventism Pain does not radiate. Pain currently is 7 out of 10 on a pain scale. Pain began gradually, CP X 3 weeks; Lknee and L head pain X1 day. Neuro: No deficits noted. Reports headache in left since 11/16/24. Cardiovascular: Reports chest pain, shortness of breath, Heart tones S1 S2 Capillary refill is > 3 seconds Pulses are all present. are 2+ in right radial artery, right dorsalis pedis artery, left radial artery and left dorsalis pedis artery Rhythm is sinus tachycardia Chest pain is described as Pain is 7 out of 10 on a pain scale. Respiratory: Reports shortness of breath cough that is hacking, Airway is patent Trachea midline Respiratory effort is even, unlabored, Respiratory pattern is regular, Onset: The symptoms/episode began/occurred X 3 days, the patient has moderate shortness of breath. GI: No deficits noted. : No deficits noted. Musculoskeletal: Reports pain in left knee since 11/16/24. COMMONWEALTH ATTORNEY: 15:30 Not ab3 Historical: - Allergies: 15:24 No Known Allergies; ab3 - PMHx: 15:24 Anxiety; COPD; diabetes mellitus; DVT Left leg; Home O2 at 2.5L NC; Hypertensive ab3 disorder; - PSHx: 15:24 partial hysterectomy; ab3 - Immunization history:: Adult Immunizations up to date. - Infectious Disease History:: Denies. - Social history:: Smoking status: Patient/guardian denies using tobacco, the patient reports quitting approximately 3 years ago. Screenin:45 [facility] ED Fall Risk Assessment (Adult) History of falling in the last 3 months, jb4 including since admission No falls in past 3 months (0 pts) Confusion or Disorientation No (0 pts) Intoxicated or Sedated No (0 pts) Impaired Gait No (0 pts) Mobility Assist Device Used No (0 pt) Altered Elimination No (0 pt) Score/Fall Risk Level 0 - 2 = Low Risk Oriented to surroundings, Maintained a safe environment. Abuse screen: Denies threats or abuse. Nutritional screening: No deficits noted. Tuberculosis screening: No symptoms or risk factors identified. Assessment: 15:30 General: See triage assessment by this RN. . ab3 19:25 Reassessment: Received report from STEVE Arriola. cc6 19:25 General: Appears in no apparent distress. comfortable, Behavior is calm, cooperative. cc6 Pain: Denies pain. Neuro: Level of Consciousness is awake, alert, obeys commands, Oriented to person, place, time. Cardiovascular: Patient's skin is warm and dry. Respiratory: Airway is patent Respiratory effort is even, labored. GI: No signs and/or symptoms were reported involving the gastrointestinal system. : No signs and/or symptoms were reported regarding the genitourinary system. EENT: No signs and/or symptoms were reported regarding the EENT system. Derm: No signs and/or symptoms reported regarding the dermatologic system. Musculoskeletal: Circulation, motion, and sensation intact. Range of motion: intact in all extremities. 19:34 General: Appears in no apparent distress. comfortable, Behavior is calm, cooperative. kd3 General: Pt seen resting comfortably in the stretcher, on O2, pt is eating a sandwich and denies needs at this time. . Pain: Denies pain. Neuro: Level of Consciousness is awake, alert, obeys commands, Oriented to person, place, time, situation. Cardiovascular: Capillary refill < 3 seconds Patient's skin is warm and dry. Respiratory: Airway is patent Respiratory effort is even, unlabored. 21:14 Reassessment: No changes from previously documented assessment. Patient and/or family cc6 updated on plan of care and expected duration. Pain level reassessed. Patient is alert, oriented x 3, equal unlabored respirations, skin warm/dry/pink. Vital Signs: 15:15 BP 122 / 77; Pulse 100; Resp 20; Pulse Ox 97% on 2 lpm NC; ab3 15:17 BP 124 / 75; Pulse 100; Resp 20; Temp 97.9; Pulse Ox 97% on 2 lpm NC; Weight 94.8 kg; ab3 Height 5 ft. 4 in. ; Pain 7/10; 15:30 BP 106 / 66; Pulse 97; Resp 20; Pulse Ox 95% on 2 lpm NC; ab3 15:45 BP 121 / 78; Pulse 95; Resp 21; Pulse Ox 97% 2 lpm ; ab3 16:00 BP 127 / 76; Pulse 93; Resp 20; Pulse Ox 97% on 2 lpm NC; ab3 16:30 BP 120 / 65; Pulse 91; Resp 17; Pulse Ox 96% on 2 lpm NC; ab3 17:00 BP 111 / 57; Pulse 86; Resp 21; Pulse Ox 100% on 2 lpm NC; ab3 17:40 BP 129 / 69; Pulse 90; Resp 20; Pulse Ox 100% on 2 lpm NC; Pain 7/10; ab3 18:30 BP 115 / 69; Pulse 88; Resp 18; Pulse Ox 99% on 2 lpm NC; ab3 19:00 BP 125 / 87; Pulse 89; Resp 21; Pulse Ox 97% on 2 lpm NC; ab3 19:29 BP 125 / 87; Pulse 88; Resp 22; Pulse Ox 99% on 2.5 lpm NC; cc6 21:14 BP 134 / 66; Pulse 99; Resp 21; Pulse Ox 100% on 2.5 lpm NC; cc6 23:27 BP 138 / 75; Pulse 95; Resp 23; Pulse Ox 96% on 2.5 lpm NC; cc6 15:17 Body Mass Index 35.87 (94.80 kg, 162.56 cm) ab3 15:17 Pain Scale: Adult ab3 17:40 Pain Scale: Adult ab3 17:40 headache remains; pt repositioned, lights dimmed and encouraged to rest. Chest pain ab3 RESOLVED at present ED Course: 15:13 Patient arrived in ED. kb 15:13 Daniela Tinoco FNP-C is PHCP. kb 15:13 Nestor Navas DO is Attending Physician. kb 15:14 Zeinab Schneider, RN is Primary Nurse. ab3 15:19 No provider procedures requiring assistance completed. Initial lab(s) drawn, by me, jb4 sent to lab. Inserted saline lock: 18 gauge in right antecubital area, using aseptic technique. Blood collected. 15:24 Triage completed. ab3 15:26 EKG done, by computer technology teacher. reviewed by Daniela MARTINI. ts3 15:30 EKG completed in triage. Results shown to MD. ab3 15:30 Arm band placed on. ab3 15:45 Patient has correct armband on for positive identification. Bed in low position. Call jb4 light in reach. Side rails up X 1. Provided Education on: plan of care. 15:50 First set of blood cultures drawn by me, Second set of blood cultures drawn by me. ts3 16:13 Chest Single View XRAY In Process Unspecified. EDMS 16:18 US Extremity Venous Unilateral Ltd In Process Unspecified. EDMS 17:[address] ab3 17:32 CT Chest For PE Angio In Process Unspecified. EDMS 17:[address] moved [address] from [address]. ab3 18:44 Tevin Vail MD is Hospitalizing Provider. kb 19:06 Report given to Jami RN and Holli RN. ab3 19:10 Primary Nurse role handed off by Zeinab Schneider, STEVE ab3 19:25 Cookie Pedroza, RN is Primary Nurse. cc6 23:27 Patient admitted, IV remains in place. cc6 Administered Medications: 16:19 Drug: Rocephin IV 1 grams IV at calculated rate once; Given slow IV push per pharmacy ab3 instructions {Note: in 10 ml sterile water.} Route: IV; Rate: calculated rate; Infused Over: 2 mins; Site: right antecubital; 16:49 Follow up: Response: No adverse reaction; IV Intake: 10ml ab3 19:31 Follow up: Response: No adverse reaction; IV Status: Completed infusion cc6 16:23 Drug: Zithromax IVPB 500 mg IVPB once over 1 hrs; mix in 250 mL NS Route: IVPB; Rate: ab3 250 ml/hr; Infused Over: 1 hrs; Site: right antecubital; Delivery: Primary tubing; 17:40 Follow up: Response: No adverse reaction; IV Status: Completed infusion; IV converted ab3 to saline lock; IV Intake: 250ml 18:39 Drug: Enoxaparin Sub-Q 1 mg/kg Sub-Q once Route: Sub-Q; Site: abdomen; ab3 19:07 Follow up: Response: No adverse reaction ab3 Medication: 15:47 VIS not applicable for this client. ab3 Intake: 16:49 IV: 10ml; Total: 10ml. ab3 17:40 IV: 250ml; Total: 260ml. ab3 Outcome: 18:47 Decision to Hospitalize by Provider. kb 23:26 Admitted to Med/surg accompanied by nurse, via stretcher, room 212, with oxygen, with cc6 chart, Report called to STEVE Gipson 23:26 Condition: stable 23:26 Instructed on the need for admit, 23:28 Patient left the ED. cc6 Signatures: Dispatcher [employer] EDCA Daniela Tinoco, COYOTE HUNTERTiffany COYOTE HUNTER-Daniel Blanco RN RN Holli Carter RN RN kd3 Zeinab Schneider RN RN ab3 Cookie Pedroza, STEVE RN cc6 Merlyn Servin ts3 Corrections: (The following items were deleted from the chart) 23:28 21:14 BP 134 / 66; Pulse 99bpm; Resp 21bpm; Pulse Ox 100% RA; cc6 cc6
--- NOTE | 2024-11-17 18:47 | EDPHYS ---
Physician Documentation [facility] Name: Roxanne Duran Age: 54 yrs Sex: Female : 1970 Arrival Date: 11/17/2024 Time: 15:09 Bed 6 Private MD: ED Physician Nestor Navas HPI: 11/17 18:30 This 54 yrs old Female presents to ER via EMS with complaints of Chest Pain > 30 y/o, kb Shortness Of Breath, Leg Pain. 18:30 Patient is a 54-year-old female who presents for shortness of breath, cough with kb increased mucus production, chest tightness that started 2 weeks ago and is progressively gotten worse. States she was seen by the clinic in [place] and prescribed Zithromax at the onset of symptoms. Completed Zithromax but symptoms persisted so they prescribed her Cipro. States she has 3 pills left of that prescription but symptoms have been persistent and worsening so she called 911 today. Also reports pain to left leg and that it feels like she has another blood clot. States she was told to stop her Xarelto while she was taking the Cipro so she has not been on it for about 1 week.. 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 - Infectious Disease History:: Denies. - Social history:: Smoking status: Patient/guardian denies using tobacco, the patient reports quitting approximately 3 years ago. ROS: 17:27 Constitutional: As per HPI kb Exam: 15:34 Constitutional: This is a well developed, well nourished patient who is awake, alert, kb and in no acute distress. Head/Face: Normocephalic, atraumatic. ENT: Moist Mucous membranes Cardiovascular: Regular rate Respiratory: Respirations even and unlabored. No increased work of breathing. Talking in full sentences Skin: Warm, dry with normal turgor. Normal color. MS/ Extremity: Pulses equal, no cyanosis. Neurovascular intact. Full, normal range of motion. Neuro: Awake and alert, GCS 15, oriented to person, place, time, and situation. 15:34 ECG was reviewed by the Attending Physician. Vital Signs: 15:15 BP 122 / 77; Pulse 100; Resp 20; Pulse Ox 97% on 2 lpm NC; ab3 15:17 BP 124 / 75; Pulse 100; Resp 20; Temp 97.9; Pulse Ox 97% on 2 lpm NC; Weight 94.8 kg; ab3 Height 5 ft. 4 in. ; Pain 7/10; 15:30 BP 106 / 66; Pulse 97; Resp 20; Pulse Ox 95% on 2 lpm NC; ab3 15:45 BP 121 / 78; Pulse 95; Resp 21; Pulse Ox 97% 2 lpm ; ab3 16:00 BP 127 / 76; Pulse 93; Resp 20; Pulse Ox 97% on 2 lpm NC; ab3 16:30 BP 120 / 65; Pulse 91; Resp 17; Pulse Ox 96% on 2 lpm NC; ab3 17:00 BP 111 / 57; Pulse 86; Resp 21; Pulse Ox 100% on 2 lpm NC; ab3 17:40 BP 129 / 69; Pulse 90; Resp 20; Pulse Ox 100% on 2 lpm NC; Pain 7/10; ab3 18:30 BP 115 / 69; Pulse 88; Resp 18; Pulse Ox 99% on 2 lpm NC; ab3 19:00 BP 125 / 87; Pulse 89; Resp 21; Pulse Ox 97% on 2 lpm NC; ab3 19:29 BP 125 / 87; Pulse 88; Resp 22; Pulse Ox 99% on 2.5 lpm NC; cc6 21:14 BP 134 / 66; Pulse 99; Resp 21; Pulse Ox 100% on 2.5 lpm NC; cc6 23:27 BP 138 / 75; Pulse 95; Resp 23; Pulse Ox 96% on 2.5 lpm NC; cc6 15:17 Body Mass Index 35.87 (94.80 kg, 162.56 cm) ab3 15:17 Pain Scale: Adult ab3 17:40 Pain Scale: Adult ab3 17:40 headache remains; pt repositioned, lights dimmed and encouraged to rest. Chest pain ab3 RESOLVED at present MDM: 15:13 Medical Screening Exam initiated kb 17:27 Data reviewed: vital signs, nurses notes. kb 18:43 Differential diagnosis: asthma, Chronic Obstructive Pulmonary Disease Myocardial kb Infarction pneumonia. Antibiotic administration: Rocephin and Zithromax given. Consideration of Admission/Observation Patient was admitted/placed on observation. Escalation of care including admission/observation considered. Management of patient was discussed with the following: Hospitalist: KATHY Melendez accepts pt for admission under Dr Vail. Historians other than the Patient: EMS: [place] [facility]. Counseling: I had a detailed discussion with the patient and/or guardian regarding the historical points, exam findings, and any diagnostic results supporting the discharge/admit diagnosis, lab results, radiology results, the need for further work-up and treatment in the hospital. 11/17 15:13 Order name: BNP; Complete Time: 16:16 kb 11/17 15:13 Order name: Blood Culture Adult (2) kb 11/17 15:13 Order name: CBC with Diff; Complete Time: 15:48 kb 11/17 15:13 Order name: CMP; Complete Time: 16:16 kb 11/17 15:13 Order name: Lactate w/ 2H reflex if indic.; Complete Time: 16:08 kb 11/17 15:13 Order name: Protime (+inr); Complete Time: 15:51 kb 11/17 15:13 Order name: Ptt, Activated; Complete Time: 15:51 kb 11/17 15:13 Order name: Troponin HS; Complete Time: 16:16 kb 11/17 15:44 Order name: Glucose, Ancillary Testing; Complete Time: 15:48 EDMS 11/17 16:05 Order name: Ghost Lactate-NO COLLECT Timer; Complete Time: 18:03 EDMS 11/17 19:15 Order name: Lactate Sepsis 2 HR Follow-up; Complete Time: 19:19 EDMS 11/17 21:18 Order name: CBC with Automated Diff EDMS 11/17 21:18 Order name: CBC with Automated Diff EDMS 11/17 21:18 Order name: CBC with Automated Diff EDMS 11/17 21:18 Order name: CBC with Automated Diff EDMS 11/17 21:18 Order name: Comprehensive Metabolic Panel EDMS 11/17 21:18 Order name: Comprehensive Metabolic Panel EDMS 11/17 21:18 Order name: Comprehensive Metabolic Panel EDMS 11/17 21:18 Order name: Comprehensive Metabolic Panel EDMS 11/17 21:18 Order name: Magnesium EDMS 11/17 21:18 Order name: Magnesium EDMS 11/17 21:18 Order name: Magnesium EDMS 11/17 21:18 Order name: Magnesium EDMS 11/17 15:13 Order name: Chest Single View XRAY; Complete Time: 16:26 kb 11/17 15:13 Order name: US Extremity Venous Unilateral Ltd; Complete Time: 16:26 kb 11/17 16:36 Order name: CT Chest For PE Angio; Complete Time: 18:38 kb 11/17 15:13 Order name: Accucheck; Complete Time: 15:31 kb 11/17 15:13 Order name: Cardiac monitoring; Complete Time: 15:26 kb 11/17 15:13 Order name: EKG - Nurse/Tech; Complete Time: 15:26 kb 11/17 15:13 Order name: IV Saline Lock - Large Bore; Complete Time: 15:27 kb 11/17 15:13 Order name: Labs collected and sent; Complete Time: 15:27 kb 11/17 15:13 Order name: O2 Per Protocol; Complete Time: 15:27 kb 11/17 15:13 Order name: O2 Sat Monitoring; Complete Time: 15:26 kb 11/17 15:13 Order name: Vital Signs; Complete Time: 15:27 kb 11/17 18:04 Order name: Misc. Order: please collect repeat lactate; Complete Time: 18:51 kb EC:34 Rate is 95 beats/min. Rhythm is regular. QRS [place] is Normal. [place] interval is normal at kb 132 msec. QRS interval is normal at 70 msec. QT interval is normal at 452 msec. Administered Medications: 16:19 Drug: Rocephin IV 1 grams IV at calculated rate once; Given slow IV push per pharmacy ab3 instructions {Note: in 10 ml sterile water.} Route: IV; Rate: calculated rate; Infused Over: 2 mins; Site: right antecubital; 16:49 Follow up: Response: No adverse reaction; IV Intake: 10ml ab3 19:31 Follow up: Response: No adverse reaction; IV Status: Completed infusion cc6 16:23 Drug: Zithromax IVPB 500 mg IVPB once over 1 hrs; mix in 250 mL NS Route: IVPB; Rate: ab3 250 ml/hr; Infused Over: 1 hrs; Site: right antecubital; Delivery: Primary tubing; 17:40 Follow up: Response: No adverse reaction; IV Status: Completed infusion; IV converted ab3 to saline lock; IV Intake: 250ml 18:39 Drug: Enoxaparin Sub-Q 1 mg/kg Sub-Q once Route: Sub-Q; Site: abdomen; ab3 19:07 Follow up: Response: No adverse reaction ab3 Disposition: 16:49 I was immediately available on-site in the Emergency Department for consultation in the [facility] [place] of the patient. Disposition Summary: 11/17/24 18:47 Hospitalization Ordered Notes: Hospitalization Status: Inpatient Admission kb Provider: Tevin Vail Location: Telemetry/MedSurg (Inpatient) kb Condition: Stable kb Problem: new kb Symptoms: are unchanged kb Bed/Room Type: [facility] Room Assignment: [facility](11/17/24 21:32) [facility] Diagnosis - Chest pain, unspecified kb - COPD/ Chronic obstructive pulmonary disease with (acute) exacerbation kb - Severe sepsis without septic shock kb Forms: - Medication Reconciliation Form kb - SBAR form kb - Leadership Thank You Letter kb Signatures: Dispatcher [employer] EDMS Daniela Tinoco, PREPPER-C PREPPER-Ckb Nestor Navas DO DO ms3 QueenieCaitlin rush f Zeinab Schneider RN RN ab3 Cookie Pedroza RN cc6 Corrections: (The following items were deleted from the chart) 15:14 15:14 PROBNP+C.LAB.BRZ ordered. EDMS EDMS 15:14 15:14 BLOOD CULTURE*+BA.LAB.BRZ ordered. EDMS EDMS 15:14 15:14 CBC+H.LAB.BRZ ordered. EDMS EDMS 15:14 15:14 COMPREHENSIVE METABOLIC PANEL+C.LAB.BRZ ordered. EDMS EDMS 15:14 15:14 LACTATE+C.LAB.BRZ ordered. EDMS EDMS 15:14 15:14 PROTIME (+INR)+COAG.LAB.BRZ ordered. EDMS EDMS 15:14 15:14 PTT, ACTIVATED+COAG.LAB.BRZ ordered. EDMS EDMS 15:14 15:14 Troponin High Sensitivity+C.LAB.BRZ ordered. EDMS EDMS 15:14 15:14 Chest Single View+RAD.RAD.BRZ ordered. EDMS EDMS 15:14 15:14 Extremity Venous Uni Ltd+US.RAD.BRZ ordered. EDMS EDMS 21:32 18:47 kb kmf
--- NOTE | 2024-11-17 21:20 | P.HP ---
Certification for Inpatient Patient admitted to: Inpatient With expected LOS: >2 Midnights Patient will require the following post-hospital care: None Practitioner: I am a practitioner with admitting privileges, knowledge of patient current condition, hospital course, and medical plan of care. Services: Services provided to patient in accordance with Admission requirements found in Title 42 Section 412.3 of the Code of Federal Regulations <Marcos Melendez - Last Filed: 11/18/24 04:44> Patient History Date of Service: 11/17/24 Reason for admission: Acute COPD exacerbation, DVT left lower extremity. History of Present Illness: Patient is a pleasant 54-year-old female with past medical history of COPD, anxiety, panic disorder, type 2 diabetes mellitus, hypercholesteremia, DVT left leg, and DVT right leg, PE, who presents to the ER today complaining of worsening shortness of breath with associated chest tightness, and productive cough. 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 Patient states she took her Cipro completely, states her condition progressively worsening, with profound bilateral expiratory, inspiratory wheezing and shortness of breath, associated productive cough which then prompted her to report to ER today. On admission assessment, patient had profound pulmonary congestion bilateral with very poor aeration, and cough. Patient was able to communicate in full sentences. Patient woke up in the ER ultrasound left lower extremity venous Doppler showed DVT. Course in ER. (1) ultrasound left lower extremity venous Doppler. Impression: Deep venous thrombosis throughout the lower extremity. Venous thrombosis along some of the lower leg perforators and segments of the distal great saphenous vein as well. (2) chest x-ray 1 view. Impression: No acute intrathoracic abnormalities. (3) CT chest for PE angio. Impression: No evidence of acute central pulmonary emboli. No suspicious intrathoracic findings, apart from bilateral atelectatic changes. - Past Medical/Surgical History Diabetic: No -: COPD -: ANXIETY -: DVT/PE -: Home oxygen dependent. -: Type 2 diabetes mellitus. -: Panic disorder. -: Hypercholesteremia. -: HYSTERECTOMY -: cataract surgery R eye Psychosocial/ Personal History: Patient lives at home with her children is currently unemployed - Family History Mother -: Lung disease, Other (see notes) (Depression.) Notes: OXYGEN DEPENDENT, SMOKER. depresssion Father -: Lung disease, GI disease, Kidney disease Notes: SMOKER - Social History Smoking Status: Former smoker Alcohol use: Yes CD- Drugs: No Caffeine use: Yes Place of Residence: Home <Marcos Melendez - Last Filed: 11/18/24 04:44> Date of Service: 11/17/24 <Tevin Vail - Last Filed: 11/23/24 12:40> Allergies No Known Drug Allergies Allergy (Verified 11/17/21 22:34) Unknown Home Medications: predniSONE [Deltasone*] 10 mg PO DAILY #75 tab 03/30/24 Albuterol Neb [Proventil 0.083% Neb Soln] 2.5 mg NEB [id number] PRN #60 amp 11/18/24 Albuterol Sulfate [Proair Digihaler] 90 mcg IH DAILY 11/18/24 Alprazolam [Xanax] 0.25 mg PO DAILY 11/18/24 Arformoterol Tartrate [Brovana] 15 mcg NEB BIDRESP #60 vial.neb 11/18/24 Guaifen W/Codeine Syrup [ROBITUSSIN A-C Syrup] 10 ml PO Q12HP PRN #150 ml 11/18/24 Ipratropium Neb [Atrovent*] 0.5 mg NEB [id number] PRN #60 amp 11/18/24 Rivaroxaban [Xarelto] 20 mg PO DAILY #30 tab 11/18/24 Tirzepatide [Mounjaro] 7.5 mg SQ EVERY 7TH DAY 11/18/24 predniSONE [Prednisone*] 20 mg PO BID #14 tab 11/18/24 Review of Systems 10-point ROS is otherwise unremarkable Respiratory: Cough, Shortness of Breath, SOB with Excertion, Wheezing <Marcos Melendez - Last Filed: 11/18/24 04:44> Physical Examination - Physical Exam General: Alert, In no apparent distress, Oriented x3, Cooperative HEENT: Atraumatic, Normocephalic, PERRLA, Mucous membr. moist/pink, Sclerae nonicteric Neck: Supple, 2+ carotid pulse no bruit, JVD not distended, No Thyromegaly, No LAD, Without JVD or thyroid abnormality Respiratory: Expiratory wheezes, Inspiratory wheezes, Other (Poor aeration bilateral lung.) Cardiovascular: No edema, Normal pulses, Regular rate/rhythm, Normal S1 S2, No gallops, No rubs, No murmurs Capillary refill: <2 Seconds Gastrointestinal: Normal bowel sounds, Soft and benign, Non-distended, W/out hepatomegaly, No ascites, No tenderness, No masses, No rebound, No guarding Musculoskeletal: No clubbing, No swelling, No contractures, No erythema, No tenderness, No warmth Integumentary: No rashes, No breakdown, No significant lesion, No tenderness/swelling, No erythema, No warmth, No cyanosis Neurological: Normal gait, Normal speech, Normal strength at 5/5 x4 extr, Normal tone, Sensation intact, Cranial nerves 3-12 intact, Normal reflexes 2+, Normal affect Lymphatics: No axilla or inguinal lymphadenopathy - Studies Laboratory Data (last 24 hrs) 11/17/24 11/17/24 11/17/24 15:19 15:19 15:19 WBC 10.80 Hgb 14.3 Hct 43.6 Plt Count 192 PT 11.6 INR 1.03 APTT 28.3 Sodium 141 Potassium 4.2 BUN 17 Creatinine 1.15 H Glucose 209 H Total Bilirubin 0.4 AST 7 L ALT 22 Alkaline Phosphatase 77 <Marcos Melendez - Last Filed: 11/18/24 04:44> - Studies Microbiology Data (last 24 hrs): 11/17/24 15:35 Blood - Blood Aerobic Blood Culture - Final No growth in 5 days. 11/17/24 15:35 Blood - Blood Anaerobic Blood Culture - Final No growth in 5 days. 11/17/24 15:50 Blood - Blood Aerobic Blood Culture - Final No growth in 5 days. 11/17/24 15:50 Blood - Blood Anaerobic Blood Culture - Final No growth in 5 days. <Tevin Vail - Last Filed: 11/23/24 12:40> Female Exam - Breasts Breasts: Normal configuration, Normal contours, Symmetrical <Marcos Melendez - Last Filed: 11/18/24 04:44> Assessment and Plan - Plan Patient is a pleasant 54-year-old female who reports to ER complaining of worsening shortness of breath with associated cough, with expiratory and inspiratory wheezing. Patient admitted inpatient with diagnosis of COPD exacerbation, and DVT left leg. (1)Acute COPD exacerbation. -Brovana 1 5 mcg neb twice daily. -Levaquin 7 and 50 mg p.o. daily. -Solu-Medrol 125 mg IV every 6 hours. -DuoNeb every 6 hours as needed. -Albuterol sulfate 1 puff inhalation daily. -Consult art gallery director Dr. Barrera -Budesonide 0.5 mg nebulizer twice daily. -Guaifenesin 20 mg p.o. 4 times daily, patient has productive cough. (2) DVT left leg. Patient has history of DVT left leg and was currently on Xarelto, until she was told by the pharmacy to stop Xarelto due to incom patibility with Cipro recently when her PCP had prescribed Cipro for the patient. Patient left Doppler ultrasound done in ER shows extensive DVT to her left leg. -Received Lovenox 1-1 loading dose in ER. -Transition patient to Xarelto with optimization 15 mg p.o. twice daily starting tomorrow. (3)Chronic type 2 diabetes mellitus. -Order A1c to evaluate patient current diabetic status, -ACHS with moderate sliding scale coverage. (4)Will resume patient home medications when reconciled. (5)Explained the entire treatment plan to the patient, solicited questions answered and voiced understanding. Discharge Plan: Longterm Plan to discharge in: Greater than 2 days - Advance Directives Does patient have a Living Will: No Does patient have a Durable POA for Healthcare: No - Code Status/Comfort Care Code Status Assessed: Yes Code Status: Full Code Critical Care: No Time Spent Managing Pts Care (In Minutes): 55 <Marcos Melendez - Last Filed: 11/18/24 04:44> Date of Service: 11/17/24 Patient was seen and examined. Events of the last 24 hours have been noted. Spoke with with RITIKA regarding patient's clinical picture after evaluating and examining the patient independently. I performed a substantial part of the MDM during this patient's care today. I personally made or approved the documented management plan and acknowledge its risk of complications. I agree with the findings and documentation provided in the RITIKA's notes. <Tevin Vail - Last Filed: 11/23/24 12:40>
[2024-11-17] MEDS ORDERED: LORazepam 2 MG/ML VIAL ONE (22:57)
[2024-11-17] MEDS: ALBUTEROL 2.5 MG/3 ML NEB SOL NEB PRN (23:31)
[2024-11-17] MEDS: IPRATROPIUM BROM 0.5MG/2.5ML NEB PRN (23:31)
[2024-11-17] MEDS: METHYLPREDNISOLONE 125 MG INJ IV SCH (23:55)
[2024-11-18 00:21] VITALS: BMI 35.9
[2024-11-18] MEDS ORDERED: guaiFENesin 100 MG/5 ML UCUP PO PRN (04:16)
[2024-11-18 05:39] LABS: Absolute Lymphocytes (CBC) 1.2 K/uL (0.7-4.9); Hematocrit 40.1 % (36.0-45.0); Hemoglobin 13.5 g/dL (12.0-15.0); MCH 31.6 pg (27.0-35.0); MCHC 33.7 g/dL (32.0-36.0); MCV 93.9 fL (80-100); MPV 7.6 fL (7.6-11.3); Nucleated RBC Absolute Count 0.0 (0-0); Nucleated Red Blood Cells % 0.1 % (0-0); RBC Red Blood Cell Count 4.27 M/uL (3.86-4.86); White Blood Count 9.30 thou/uL (4.3-10.9)
[2024-11-18 06:00] LABS: ALT/SGPT 20.0 U/L (13-56); Albumin 2.8 g/dL (3.4-5.0); Albumin/Globulin Ratio 0.9 (1.1-1.8); Alkaline Phosphatase 61.0 U/L (45-117); Anion Gap 10.1 mEq/L (5.0-15.0); BUN Blood Urea Nitrogen 22.0 mg/dL (7-18); Globulin 3.2 g/dL (2.3-3.5); Glucose Level 263.0 mg/dL (74-106)
[2024-11-18 06:15] LABS: AST/SGOT 16.0 U/L (15-37); Magnesium 2.2 mg/dL (1.6-2.4); Potassium 4.1 mEq/L (3.5-5.1)
[2024-11-18] MEDS: ARFORMOTEROL TARTRATE 15 MCG/2 ML VIAL.NEB NEB SCH (07:45)
[2024-11-18] MEDS: BUDESONIDE 0.5 MG/2 ML NEB NEB SCH (07:45)
[2024-11-18] MEDS: ALPRAZOLAM 0.25 MG TABLET PO SCH (08:27)
[2024-11-18] MEDS: INSULIN REGULAR (HUMAN) 100 UNIT/ML SQ SCH (08:27)
[2024-11-18] MEDS: RIVAROXABAN 15 MG TABLET PO SCH (08:27)
--- NOTE | 2024-11-18 08:43 | P.CNS ---
Date of Consult: 11/18/24 Reason for Consult: COPD exacerbation DVT Chief Complaint: COPD exacerbation History of Present Illness: Patient is 54 years of age she has a history of DVT and has been taking anticoagulation for a very long period of time she was on a maintenance dose of Xarelto for 10 mg denies any worsening edema apparently has been sick for 2 weeks complaining of cough congestion worsening shortness of breath and was prescribed antibiotics recently was changed to ciprofloxacin and continued to get worse ended up here in the hospital patient is compliant with her therapy Allergies No Known Drug Allergies Allergy (Verified 11/17/21 22:34) Unknown Home Medications: Rivaroxaban [Xarelto*] 10 mg PO DAILY #30 tab 03/30/24 predniSONE [Deltasone*] 10 mg PO DAILY #75 tab 03/30/24 Albuterol Sulfate [Proair Digihaler] 90 mcg IH DAILY 11/18/24 Alprazolam [Xanax] 0.25 mg PO DAILY 11/18/24 Tirzepatide [Mounjaro] 7.5 mg SQ EVERY 7TH DAY 11/18/24 - Past Medical/Surgical History Diabetic: No -: COPD -: ANXIETY -: DVT/PE -: Home oxygen dependent. -: Type 2 diabetes mellitus. -: Panic disorder. -: Hypercholesteremia. -: HYSTERECTOMY -: cataract surgery R eye Psychosocial/ Personal History: Patient lives at home with her children is currently unemployed - Family History Mother Medical History: Lung disease, Other (see notes) (Depression.) Notes: OXYGEN DEPENDENT, SMOKER. depresssion Father Medical History: Lung disease, GI disease, Kidney disease Notes: SMOKER - Social History Smoking Status: Former smoker Alcohol use: Yes CD- Drugs: No Caffeine use: Yes Place of Residence: Home Review of Systems General: Weakness Respiratory: Cough, Shortness of Breath Physical Examination Temp Pulse Resp BP Pulse Ox 97.5 F 101 H 18 109/58 L 95 11/18/24 08:00 11/18/24 08:00 11/18/24 08:00 11/18/24 08:00 11/18/24 08:00 General: Alert, Oriented x3 Respiratory: Clear to auscultation bilaterally, Diminished, Expiratory wheezes Cardiovascular: No edema, Regular rate/rhythm Laboratory Data (last 24 hrs) 11/17/24 11/17/24 11/17/24 15:19 15:19 15:19 WBC 10.80 Hgb 14.3 Hct 43.6 Plt Count 192 PT 11.6 INR 1.03 APTT 28.3 Sodium 141 Potassium 4.2 BUN 17 Creatinine 1.15 H Glucose 209 H Total Bilirubin 0.4 AST 7 L ALT 22 Alkaline Phosphatase 77 - Problems (1) COPD exacerbation Onset Date: 05/20/17 Current Visit: No Status: Acute Plan: Patient is 54 years of age admitted with COPD exacerbation currently doing be tter plan to discharge home on prednisone 20 mg twice a day for 5D days and then resume 10 mg a day she has became sick in the past 2 days continue with home ciprofloxacin for now she has a history of DVT probably some residual DVT in the right leg which is to be expected in can increase the Xarelto to 20 mg once a day now and will review the medication dose in the office Doppler ultrasound shows 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
[2024-11-18] MEDS: ALBUTEROL INHALER 200 PUFF/6.7 GM IH SCH (09:00)
[2024-11-18 09:09] LABS: Differential Total Cells Count 100; Segmented Neutrophils 85 % (40-80)
[2024-11-18 09:10] LABS: Blood Morphology Comment NOT SEEN (NOT SEEN)
[2024-11-18] MEDS: ACETAMINOPHEN 325 MG TABLET PO PRN (10:53)
[2024-11-18] MEDS: predniSONE 20 MG TAB PO SCH (10:54)
[2024-11-18] MEDS: METHYLPREDNISOLONE 40 MG INJ IV ONE ×2 (14:28→16:50)
[2024-11-18 20:16] VITALS: O2SAT 97
[2024-11-18 22:02] VITALS: BP 127/68; TEMP 98.2
[2024-11-19] MEDS ORDERED: ALBUTEROL INHALER 200 PUFF/6.7 GM IH SCH (09:00)
[2024-11-19] MEDS ORDERED: RIVAROXABAN 10 MG TABLET PO SCH (09:00)
[2024-11-21] MEDS ORDERED: Tirzepatide [Mounjaro] 7.5 MG/0.5 ML Pen.Injctr SQ SCH (09:00)
== END 2024-11-18 20:19 | disposition home or self-care (01) ==
LOC: ER 15:09 → INTOOBSV 21:07 → ERHOLD 21:07 → 2ND 21:35
PROVIDERS: ADMIT Hospitalist; ATTEND Hospitalist
DX: J45.901 Unspecified asthma with (acute) exacerbation (principal); I82.402 Acute embolism and thrombosis of unspecified deep veins of left lower extremity; E11.9 Type 2 diabetes mellitus without complications; Z79.01 Long term (current) use of anticoagulants; F41.9 Anxiety disorder, unspecified; Z99.81 Dependence on supplemental oxygen
CPT/HCPCS: 96365; 93005; 87040 ×2; 85025 ×2; 36415; 83735; 85610; 82947 ×5; 83605 ×2; 85730; 84484; 80053 ×2; 83880; 71275; 71045; 93971; 94640; 96372; 99285; 96366; 94668; Q9967; J7512 ×2; J0456; J1650; J7613 ×3; J7644 ×3; J7626; J7605 ×2; J2919 ×3; J1815 ×4; J7050; J0696; G0378 ×3; G0238 ×2; J3535